=== PATIENT | male | born 1970 | race Caucasian/White ===

== ENCOUNTER 2017-01-10 16:17 | Inpatient (IN) | payer BC ==
[~2017-01-10] VITALS: Ht 172.7 cm; Wt 123.9 kg
[~2017-01-10 16:17] MED LIST: GLY/5 PO; METF-384 PO
[2017-01-10] MEDS ORDERED: SODIUM CHLORIDE 0.9% 1000ML 1,000 ML IV STA ×2 (16:42→17:04)
[2017-01-10] MEDS ORDERED: DAPTOmycin IV 500 MG in SODIUM CHLORIDE 0.9% 50ML 50 ML IV STA (16:45)
[2017-01-10] MEDS ORDERED: PIPERACILLIN/TAZOBACTAM 4.5 GM/100ML D5W IV STA (16:45)
--- NOTE | 2017-01-10 17:01 | EMERGENCY ROOM VISIT NOTE ---
History First contact with patient: 16:33 Chief Complaint: WOUND INFECTION Stated Complaint: INFECTED RIGHT FOOT Nursing Triage Summary: Pt presents with c/o right foot pain/infection. Pt states he is a diabetic and on Father's Day "something fell into my boot. I didn't take it off to look at it. I didn't really notice anything until the Wed after Father's Day." States area is open/draining. Denies fever/chills. Hx of cellulitis. History of Present Illness The patient is a 46 year old male who presents to the Emergency Room via private vehicle with complaints of "infected right foot". The patient states that he has diabetes, and has minimal feeling in his feet. He states on Father' s Day, a knife/pocket knife that was closed fell into his right boot and he walked on this for approximately 8 hours each day 3 days. He states that he noticed that he had injured his foot. He states that it was doing okay until last night the pain had increased, and he noticed redness and swelling of the right foot. There is been drainage from the foot. He rates the pain as a 2/ 10. He has a history of sialitis, and would like to get this treated appropriately. He was seen earlier today at [facility] who sent him here for further evaluation and management. He states that he is a type II diabetic, and is on metformin and glyburide. He checked his sugar on Wednesday, and it was found to be 411. He denies any fevers or chills. He states he has a history of MRSA. Review of Systems A complete 10-point Review of Systems was discussed with the patient, with pertinent positives and negatives listed in the History of Present Illness. All remaining Review of Systems questions can be considered negative unless otherwise specified. Past Medical/Surgical History Medical Problems: (1) Diabetic foot infection Diabetes, cellulitis, MRSA. Social History Smoking Status: Never Smoker Marital Status: single Occupation Status: employed Current/Historical Medications Scheduled Glyburide (Diabeta), 10 MG PO DAILY Ibuprofen (Advil), 600 MG PO DAILY Metformin Hcl (Glucophage), 1,000 MG PO BID Allergies Coded Allergies: No Known Allergies (Unverified , 01/10/17) Physical Exam Vital Signs Date Time Temp Pulse Resp B/P (MAP) Pulse Ox O2 Delivery O2 Flow Rate FiO2 01/10/17 16:45 Room Air 7/2/17 16:27 37.6 122 20 141/85 96 Room Air Physical Exam VITAL SIGNS - Vital signs and nursing notes were reviewed. Patient is borderline febrile at 37.6, hypertensive at 141/85, tachycardic at a rate of 122 bpm, and is saturating well on room air 96%. GENERAL -46-year-old male appearing his stated age who is in no acute distress. Communicates well with provider and answers questions appropriately. SKIN - there is diffuse erythema extending from the right distal toes to the mid calf. There is an ulcer on the plantar aspect of the right fourth MTP joint region. Minimal drainage noted. LUNGS - Chest wall symmetric without accessory muscle use, intercostals retractions, or central cyanosis. Normal vesicular breath sounds CTA B/L. No wheezes, rales, or rhonchi appreciated. CARDIAC - RRR with S1/S2. No murmur, rubs, or gallops appreciated. EXTREMITIES - No clubbing or peripheral cyanosis. No pretibial edema present. He is vascular intact in the right lower extremity, but does have marked sensory neuro deficit in the right foot. +5/5 strength noted in UE/LE bilaterally. Medical Decision & Procedures ER Provider Diagnostic Interpretation: RIGHT FOOT 3 VIEWS CLINICAL HISTORY: Right foot edema. Ulcer. Erythema. FINDINGS: 3 views of the right foot are obtained. No prior studies are available for comparison at the time of dictation. The skeletal structures are osteopenic. No fracture is identified. There is no bony erosion or periostitis. Pes planus is observed. There are large dorsal and plantar calcaneal enthesophytes. Degenerative spurring is seen on the dorsal aspect of the tarsal bones. A small enthesophyte is seen at the base of the fifth metatarsal. Soft tissue edema is present throughout the foot. Advanced atherosclerotic calcification is noted in the regional arteries. No subcutaneous gas or radiodense foreign body is seen. IMPRESSION: 1. Soft tissue edema with no acute bony abnormality seen in the right foot. 2. Osteopenia, degenerative change, and heel spurs as above. Electronically signed by: Iker Hinton M.D. 01/10/2017 5:32 PM Dictated Date/Time: 01/10/2017 5:30 PM Laboratory Results 01/10/17 16:45 Red Blood Count 5.30, Mean Corpuscular Volume 80.4, Mean Corpuscular Hemoglobin 28.3, Mean Corpuscular Hemoglobin Concent 35.2, Mean Platelet Volume 8.9, Neutrophils (%) (Auto) 81.5, Lymphocytes (%) (Auto) 10.7, Monocytes (%) (Auto) 6.6, Eosinophils (%) (Auto) 0.7, Basophils (%) (Auto) 0.2, Neutrophils # (Auto) 10.95, Lymphocytes # (Auto) 1.43, Monocytes # (Auto) 0.88, Eosinophils # (Auto) 0.09, Basophils # (Auto) 0.03 01/10/17 16:45 Test 01/10/17 16:45 01/10/17 16:56 White Blood Count 13.42 K/uL (4.8-10.8) Red Blood Count 5.30 M/uL (4.7-6.1) Hemoglobin 15.0 g/dL (14.0-18.0) Hematocrit 42.6 % (42-52) Mean Corpuscular Volume 80.4 fL (80-100) Mean Corpuscular Hemoglobin 28.3 pg (25-34) Mean Corpuscular Hemoglobin Concent 35.2 g/dl (32-36) Platelet Count 211 K/uL (130-400) Mean Platelet Volume 8.9 fL (7.4-10.4) Neutrophils (%) (Auto) 81.5 % Lymphocytes (%) (Auto) 10.7 % Monocytes (%) (Auto) 6.6 % Eosinophils (%) (Auto) 0.7 % Basophils (%) (Auto) 0.2 % Neutrophils # (Auto) 10.95 K/uL (1.4-6.5) Lymphocytes # (Auto) 1.43 K/uL (1.2-3.4) Monocytes # (Auto) 0.88 K/uL (0.11-0.59) Eosinophils # (Auto) 0.09 K/uL (0-0.5) Basophils # (Auto) 0.03 K/uL (0-0.2) RDW Standard Deviation 35.5 fL (36.4-46.3) RDW Coefficient of Variation 12.3 % (11.5-14.5) Immature Granulocyte % (Auto) 0.3 % Immature Granulocyte # (Auto) 0.04 K/uL (0.00-0.02) Prothrombin Time 10.7 SECONDS (9.0-12.0) Prothromb Time International Ratio 1.0 (0.9-1.1) Activated Partial Thromboplast Time 28.4 SECONDS (21.0-31.0) Partial Thromboplastin Ratio 1.1 Anion Gap 10.0 mmol/L (3-11) Est Creatinine Clear Calc Drug Dose 92.4 ml/min Estimated GFR () 75.8 Estimated GFR (Non- 65.4 BUN/Creatinine Ratio 13.5 (10-20) Calcium Level 8.7 mg/dl (8.5-10.1) Total Bilirubin 0.5 mg/dl (0.2-1) Aspartate Amino Transf (AST/SGOT) 8 U/L (15-37) Alanine Aminotransferase (ALT/SGPT) 23 U/L (12-78) Alkaline Phosphatase 89 U/L (45-117) Total Protein 7.1 gm/dl (6.4-8.2) Albumin 3.3 gm/dl (3.4-5.0) Globulin 3.8 gm/dl (2.5-4.0) Albumin/Globulin Ratio 0.9 (0.9-2) Beta-Hydroxybutyric Acid 3.74 mg/dL (0.2-2.81) Bedside Lactic Acid Venous 1.34 mmol/L (0.90-1.70) Medications Administered Medications (Trade) Dose Ordered Sig/Randa Route Start Time Stop Time Status Last Admin Dose Admin Sodium Chloride 1,000 ml @ 200 mls/hr Q5H STAT IV 01/10/17 16:42 01/10/17 20:43 DC 01/10/17 17:13 200 MLS/HR Piperacillin Sod/ Tazobactam Sod (Zosyn Iv) 4.5 gm NOW STAT IV 01/10/17 16:45 01/10/17 16:49 DC 01/10/17 17:11 4.5 GM Daptomycin 500 mg/ Sodium Chloride 60 ml @ 100 mls/hr NOW STAT IV 01/10/17 16:45 01/10/17 17:20 DC 01/10/17 17:11 100 MLS/HR Sodium Chloride 1,000 ml @ 999 mls/hr Q1H1M STAT IV 01/10/17 17:04 01/10/17 18:04 DC 01/10/17 17:04 999 MLS/HR Acetaminophen (Tylenol Tab) 1,000 mg STK-MED ONCE PO 01/10/17 18:24 01/10/17 18:25 DC 01/10/17 18:24 1,000 MG Medical Decision Patient was seen and evaluated as above. After obtaining a thorough history and physical examination IV access was initiated and the above workup was performed. Patient presents to us today slightly tachycardic at a rate of 122 bpm, and slightly febrile. He was bolused with fluids, and IV antibiotics were initiated despite there being a normal lactic acid. Patient's glucose was elevated. Creatinine is high at 1.3. Mild leukocytosis at 13.42. No anemia noted. Coagulation studies unremarkable. Sodium is low at 132, chloride low at 96. Glucose is 403. Point of care lactic is 1.34. I did consult the pharmacy regarding antibiotic choices for the patient and the decision was made to place the patient upon 4.5 g of Zosyn, as well as daptomycin. Again I consult pharmacy regarding this. Patient this time I believe is best managed in the inpatient setting secondary to the cellulitis of his foot, diabetic state , and tachycardia. I did discuss the case with my attending and subsequently the hospitalist. Please refer to further evaluation and management regarding the patient's stay. In evaluation treatment this patient following differential diagnoses were entertained: Sepsis, cellulitis, among others. Tetanus is up-to-date. Impression Primary Impression: Diabetic foot infection Departure Information Dispostion Admitted as an inpatient Condition FAIR Referrals Idris Moreno M.D. (PCP) Patient Instructions My [facility]
[2017-01-10 17:13] LABS: BASO % 0.2 %; BASO ABS # 0.03 K/uL (0-0.2); COMPLETE YES; EOS % 0.7 %; HEMATOCRIT 42.6 % (42-52); IG% 0.3 %; LYMPH % 10.7 %; LYMPH ABS # 1.43 K/uL (1.2-3.4); MEAN CELL VOLUME 80.4 fL (80-100); MEAN CORPUSCULAR HEMOGLOBIN 28.3 pg (25-34); MEAN CORPUSCULAR HGB CONC 35.2 g/dl (32-36); MEAN PLATELET VOLUME 8.9 fL (7.4-10.4); MONO % 6.6 %; NEUT % 81.5 %; PLATELET COUNT 211 K/uL (130-400); WHITE BLOOD COUNT 13.42 K/uL (4.8-10.8)
[2017-01-10 17:21] LABS: PARTIAL THROMBOPLASTIN RATIO 1.1; PROTHROMBIN TIME (PATIENT) 10.7 SECONDS (9.0-12.0)
--- NOTE | 2017-01-10 17:33 | DIAGNOSTIC IMAGING REPORT ---
RIGHT FOOT 3 VIEWS CLINICAL HISTORY: Right foot edema. Ulcer. Erythema. FINDINGS: 3 views of the right foot are obtained. No prior studies are available for comparison at the time of dictation. The skeletal structures are osteopenic. No fracture is identified. There is no bony erosion or periostitis. Pes planus is observed. There are large dorsal and plantar calcaneal enthesophytes. Degenerative spurring is seen on the dorsal aspect of the tarsal bones. A small enthesophyte is seen at the base of the fifth metatarsal. Soft tissue edema is present throughout the foot. Advanced atherosclerotic calcification is noted in the regional arteries. No subcutaneous gas or radiodense foreign body is seen. IMPRESSION: 1. Soft tissue edema with no acute bony abnormality seen in the right foot. 2. Osteopenia, degenerative change, and heel spurs as above. Electronically signed by: Iker Hinton M.D. 01/10/2017 5:32 PM Dictated Date/Time: 01/10/2017 5:30 PM
[2017-01-10] MEDS ORDERED: IBUP-1050 PO (17:37)
[2017-01-10 17:39] LABS: ALB/GLOB RATIO 0.9 (0.9-2); BUN/CREATININE RATIO 13.5 (10-20); CALCIUM 8.7 mg/dl (8.5-10.1); CREATININE 1.3 mg/dl (0.60-1.40); POTASSIUM 4.1 mmol/L (3.5-5.1)
[2017-01-10 18:00] LABS: BETA-HYDROXYBUTYRATE 3.74 mg/dL (0.2-2.81)
[2017-01-10] MEDS ORDERED: ACETAMINOPHEN 500 MG TAB PO ONE (18:24)
[2017-01-10] MEDS ORDERED: LANTUS PER UNIT CHARGE SC SCH (18:30)
[2017-01-10] MEDS ORDERED: ACETAMINOPHEN 500 MG TAB PO PRN (18:30)
[2017-01-10] MEDS ORDERED: ONDANSETRON INJ 2 MG/ML 2 ML VIAL IV PRN (18:30)
[2017-01-10] MEDS ORDERED: MAGNESIUM HYDROXIDE SUSP 30 ML UDC PO PRN (18:30)
[2017-01-10] MEDS ORDERED: ALUMINUM/MAGNESIUM/SIMETH (MAALOX MAX) 30 ML UDC PO PRN (18:30)
[2017-01-10] MEDS ORDERED: VANCOMYCIN CONSULT ACTIVE PRN (18:49)
[2017-01-10] MEDS ORDERED: GLUCOSE 40% GEL 15 GM TUBE PO PRN (19:00)
[2017-01-10] MEDS ORDERED: PIPERACILL/TAZOBAC CONSULT ACTIVE PRN (19:00)
[2017-01-10] MEDS ORDERED: GLUCAGON FOR INJ 1 MG VIAL SQ PRN (19:00)
[2017-01-10] MEDS ORDERED: GLUCOSE 10 TABS/TUBE PO PRN (19:00)
[2017-01-10] MEDS ORDERED: DEXTROSE 50% 50 ML SYR IV PRN (19:00)
[2017-01-10 19:07] VITALS: BMI 41.5
--- NOTE | 2017-01-10 19:28 | History and Physical ---
History & Physical Date & Time of Service: Jan 10, 2017 at 19:23 Chief Complaint: Infected Right Foot Primary Care Physician: Idris Moreno M.D. History of Present Illness This is a diabetic who presents with a diabetic foot infection on the right. He has an ulcer over the left fourth MTP area plantar aspect of his right foot which is caused by having a pocket knife in his boot and not being aware of it due to his neuropathy. He notices particularly reddened area to the right ankle and when inspecting his plantar aspect noticed an ulcer that is approximately 1 x 2 cm. 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 The patient's last A1c in our system is from 2012 and it was 8.9 In the ER. Blood cultures and was given daptomycin and Zosyn, Zosyn will be continued and we'll substitute vancomycin at this time Social History Smoking Status: Never Smoker Smokeless Tobacco Use: No Alcohol Use: none Marital Status: single Occupational Status: employed Immunizations History of Influenza Vaccine: N/A History of Tetanus Vaccine?: not since a child History of Pneumococcal: No History of Hepatitis B Vaccine: Yes Hepatitis Immunization Date: [birth year] 03, 1986 Multi-Drug Resistant Organisms History of MDRO: Yes Type of MDRO: MRSA Allergies Coded Allergies: No Known Allergies (Unverified , 01/10/17) Home Medications Scheduled Glyburide (Diabeta), 10 MG PO DAILY Ibuprofen (Advil), 600 MG PO DAILY Metformin Hcl (Glucophage), 1,000 MG PO BID Review of Systems ROS: well nourished well developed No double vision blurry vision No problems with speech or swallowing No palpitations, chest pain or pressure No Wheezing or breathing issues No abdominal pain nausea vomiting diarrhea changes in appetite or weight No burning urine urine frequency or changes in color No focal joint pain or muscle pain and numbness to both feet Ulcers present as commented on with redness to his ankle of the right foot No unusual bruising or bleeding No focused back pain or numbness or loss of strength No changes in memory or confusion Physical Exam Vital Signs Date Time Temp Pulse Resp B/P (MAP) Pulse Ox O2 Delivery O2 Flow Rate FiO2 01/10/17 19:07 Room Air 01/10/17 18:54 108 18 114/71 94 Room Air 01/10/17 16:45 Room Air 01/10/17 16:27 37.6 122 20 141/85 96 Room Air General Appearance: + mild distress, + obese Head: normocephalic, atraumatic Eyes: PERRL, EOMI ENT: hearing grossly normal, pharynx normal Neck: supple, no JVD Respiratory/Chest: chest non-tender, lungs clear, normal breath sounds Cardiovascular: regular rate, rhythm, no murmur Abdomen/GI: normal bowel sounds, non tender, soft Back: no CVA tenderness, no muscle spasm Extremities/Musculoskelatal: + pertinent finding (the patient has a macerated, 2 ulcer on the right plantar foot grade 3 with surrounding erythema to the foot to the ankle) Neurologic/Psych: alert, normal reflexes, + sensory deficit Diagnostics Laboratory Results Results Past 24 Hours Test 01/10/17 16:45 01/10/17 16:56 01/10/17 18:18 Range/Units White Blood Count 13.42 4.8-10.8 K/uL Red Blood Count 5.30 4.7-6.1 M/uL Hemoglobin 15.0 14.0-18.0 g/dL Hematocrit 42.6 42-52 % Mean Corpuscular Volume 80.4 80-100 fL Mean Corpuscular Hemoglobin 28.3 25-34 pg Mean Corpuscular Hemoglobin Concent 35.2 32-36 g/dl Platelet Count 211 130-400 K/uL Mean Platelet Volume 8.9 7.4-10.4 fL Neutrophils (%) (Auto) 81.5 % Lymphocytes (%) (Auto) 10.7 % Monocytes (%) (Auto) 6.6 % Eosinophils (%) (Auto) 0.7 % Basophils (%) (Auto) 0.2 % Neutrophils # (Auto) 10.95 1.4-6.5 K/uL Lymphocytes # (Auto) 1.43 1.2-3.4 K/uL Monocytes # (Auto) 0.88 0.11-0.59 K/uL Eosinophils # (Auto) 0.09 0-0.5 K/uL Basophils # (Auto) 0.03 0-0.2 K/uL RDW Standard Deviation 35.5 36.4-46.3 fL RDW Coefficient of Variation 12.3 11.5-14.5 % Immature Granulocyte % (Auto) 0.3 % Immature Granulocyte # (Auto) 0.04 0.00-0.02 K/uL Prothrombin Time 10.7 9.0-12.0 SECONDS Prothromb Time International Ratio 1.0 0.9-1.1 Activated Partial Thromboplast Time 28.4 21.0-31.0 SECONDS Partial Thromboplastin Ratio 1.1 Sodium Level 132 136-145 mmol/L Potassium Level 4.1 3.5-5.1 mmol/L Chloride Level 96 98-107 mmol/L Carbon Dioxide Level 26 21-32 mmol/L Anion Gap 10.0 3-11 mmol/L Blood Urea Nitrogen 18 7-18 mg/dl Creatinine 1.30 0.60-1.40 mg/dl Est Creatinine Clear Calc Drug Dose 92.4 ml/min Estimated GFR () 75.8 Estimated GFR (Non- 65.4 BUN/Creatinine Ratio 13.5 10-20 Random Glucose 403 70-99 mg/dl Calcium Level 8.7 8.5-10.1 mg/dl Total Bilirubin 0.5 0.2-1 mg/dl Aspartate Amino Transf (AST/SGOT) 8 15-37 U/L Alanine Aminotransferase (ALT/SGPT) 23 12-78 U/L Alkaline Phosphatase 89 45-117 U/L Total Protein 7.1 6.4-8.2 gm/dl Albumin 3.3 3.4-5.0 gm/dl Globulin 3.8 2.5-4.0 gm/dl Albumin/Globulin Ratio 0.9 0.9-2 Beta-Hydroxybutyric Acid 3.74 0.2-2.81 mg/dL Bedside Lactic Acid Venous 1.34 0.90-1.70 mmol/L Microbiology Results 01/10/17 Blood Culture, Received Pending 01/10/17 Blood Culture, Received Pending Diagnostic Radiology X-ray of the foot negative for osteomyelitis CXR normal Impression Assessment and Plan 46-year-old noncompliant diabetic patient with diabetic foot infection Vanco and Zosyn will be continued. Wound care Consult, follow blood cultures His diabetic care will continue his glipizide, check an A1c, perioperative educator, sliding scale insulin, initially held his metformin this could be restarted if his renal function remained stable Lovenox for DVT prevention We will also consider nutritional consult if the patient's agreeable Level of Care Med/Surg Advanced Directives Existing Living Will: No Existing Power of Gravure Press Set Up Operator: No Resuscitation Status FULL RESUSCITATION VTE Prophylaxis VTE Risk Assessment Done? Y/N: Yes Risk Level: Moderate Given or contraindicated: Enoxaparin (Lovenox)SQ
[2017-01-10 19:50] VITALS: BP 106/64; PULSE 112; TEMP 37.1; O2SAT 92
--- NOTE | 2017-01-10 20:13 | Pharmacy Progress Note ---
Pharmacy Abx Initial Consult Date of Service Jan 10, 2017. Pharmacy Dosing Scope Date of Consult: 01/10/17 Consultation requested by: Dr. Escobar Pharmacy is consulted to initiate vancomycin and piperacillin/tazobactam IV dosing therapy, order appropriate labs and adjust drug dose/frequency. Subjective The patient is a 46 year old male admitted on Jan 10, 2017 at 18:24. Objective Height (Feet): 5 Height (Inches): 8.00 Weight (Kilograms): 123.900 Vital Signs (Past 12Hrs) Vital Signs Past 12 Hours Date Time Temp Pulse Resp B/P (MAP) Pulse Ox O2 Delivery O2 Flow Rate FiO2 01/10/17 19:50 37.1 112 18 106/64 (78) 92 Room Air 01/10/17 19:07 Room Air 01/10/17 18:54 36.8 108 18 114/71 94 Room Air 01/10/17 16:45 Room Air 01/10/17 16:27 37.6 122 20 141/85 96 Room Air Lab Results (24Hrs) Laboratory Tests (24 Hours) Test 01/10/17 16:45 White Blood Count 13.42 K/uL (4.8-10.8) H Red Blood Count 5.30 M/uL (4.7-6.1) Hemoglobin 15.0 g/dL (14.0-18.0) Hematocrit 42.6 % (42-52) Mean Corpuscular Volume 80.4 fL (80-100) Mean Corpuscular Hemoglobin 28.3 pg (25-34) Mean Corpuscular Hemoglobin Concent 35.2 g/dl (32-36) Platelet Count 211 K/uL (130-400) Mean Platelet Volume 8.9 fL (7.4-10.4) Neutrophils (%) (Auto) 81.5 % Lymphocytes (%) (Auto) 10.7 % Monocytes (%) (Auto) 6.6 % Eosinophils (%) (Auto) 0.7 % Basophils (%) (Auto) 0.2 % Neutrophils # (Auto) 10.95 K/uL (1.4-6.5) H Lymphocytes # (Auto) 1.43 K/uL (1.2-3.4) Monocytes # (Auto) 0.88 K/uL (0.11-0.59) H Eosinophils # (Auto) 0.09 K/uL (0-0.5) Basophils # (Auto) 0.03 K/uL (0-0.2) Item Value Date Time Bedside Lactic Acid Venous 1.34 mmol/L 01/10/17 1656 Micro Results Date/Time Source Procedure Growth Status 01/10/17 17:00 Blood Blood Culture Pending Received 01/10/17 16:45 Blood Blood Culture Pending Received Risk Factors for Resistance * History of infection with a multidrug-resistant organism: * patient reports history of MRSA per ED progress note Assessment & Plan Assessment * 46 year old male who presents after dropping an object on his foot a few days ago. * Minimal feeling in feet secondary to diabetic neuropathy * Daptomycin and piperacillin/tazobactam given in ED * daptomycin will have activity for ~24 hours - will time vancomycin to start on 01/11/17 for this reason * Serum creatinine may be slightly elevated above baseline * patient body habitus likely will cause accumulation of vancomycin - will dose lower than population kinetic based dosing schematic. Plan * Broad-spectrum ABX for treatment of diabetic foot infection Vancomycin IV * Loading dose: 2500 mg (20 mg/kg) * Maintenance dose: 1750 mg IV (14 mg/kg) every 10 hours * Goal trough level for SSTI: 15 to 20 mcg/mL since remote history of MRSA * Trough level ordered for 01/12/17 prior to 11:00 dose (not yet at steady state, but would like to assess for accumulation) * A less than traditional dose and/or extended dosing interval has/have been selected due to likelihood of drug accumulation in obese patient/patient with h/ o CKD. Piperacillin/tazobactam * 4.5 g bolus administered over 30 minutes, then 4.5 g IV extended infusion every 8 hours for CrCl greater than 20 mL/min * Aggressive dosing selected due to BMI 35 or more. Pharmacy will continue to follow and will adjust dose/frequency as necessary. Thank you.
[2017-01-10] MEDS: PIPERACILL/TAZOBAC IV 4.5 GM in DEXTROSE 5% 100ML 100 ML IV SCH (21:46)
[2017-01-10] MEDS: INSULIN ASPART 100 UNITS/ML 3 ML PEN SC SCH (21:54)
[2017-01-10] MEDS: ENOXAPARIN 40 MG/0.4 ML SYR SQ SCH (22:21)
[2017-01-11 00:04] VITALS: BP 101/62; PULSE 93; TEMP 37.2; O2SAT 96
[2017-01-11] MEDS ORDERED: VANCOMYCIN INJ 2,500 MG in SODIUM CHLORIDE 0.9% 500ML 500 ML IV SCH (05:00)
[2017-01-11] MEDS: PIPERACILL/TAZOBAC IV 4.5 GM in DEXTROSE 5% 100ML 100 ML IV SCH ×3 (05:32→21:41)
[2017-01-11 07:16] LABS: BUN/CREATININE RATIO 15.7 (10-20); CALCIUM 8.4 mg/dl (8.5-10.1); CREATININE 0.98 mg/dl (0.60-1.40); POTASSIUM 3.9 mmol/L (3.5-5.1)
[2017-01-11 07:30] VITALS: O2SAT 95
[2017-01-11 07:31] VITALS: BP 155/76; PULSE 98; TEMP 37.2; O2SAT 95
[2017-01-11 07:55] LABS: ESTIMATED AVERAGE GLUCOSE 367 mg/dl; HA1C FLAG Normal (Normal)
[2017-01-11] MEDS: METFORMIN HCL 500 MG TAB PO SCH ×2 (08:18→18:52)
[2017-01-11 08:19] LABS: HEMATOCRIT 40.3 % (42-52); MEAN CELL VOLUME 82.1 fL (80-100); MEAN CORPUSCULAR HEMOGLOBIN 29.1 pg (25-34); MEAN CORPUSCULAR HGB CONC 35.5 g/dl (32-36); MEAN PLATELET VOLUME 9.6 fL (7.4-10.4); PLATELET COUNT 189 K/uL (130-400); RED BLOOD COUNT 4.91 M/uL (4.7-6.1); WHITE BLOOD COUNT 12.76 K/uL (4.8-10.8)
[2017-01-11] MEDS: INSULIN ASPART 100 UNITS/ML 3 ML PEN SC SCH ×4 (08:22→21:43)
--- NOTE | 2017-01-11 10:16 | Hospitalist Progress Note ---
Hospitalist Progress Note Date of Service Jan 11, 2017. Subjective Pt evaluation today including: conversation w/ patient, physical exam, chart review, lab review, review of studies, review of inpatient medication list Voiding: no voiding problems, no incontinence Patient states he is feeling well. He had a pocket knife in his boot causing breakdown of skin to right foot- blade was closed, denies being stabbed by knife. He is eating and drinking OK. 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 Medications Current Inpatient Medications Medications (Trade) Dose Ordered Sig/Randa Route Start Time Stop Time Status Last Admin Dose Admin Enoxaparin Sodium (Lovenox Inj) 40 mg Q24H SQ 01/10/17 22:00 02/09/17 21:59 01/10/17 22:21 40 MG Acetaminophen (Tylenol Tab) 1,000 mg Q6H PRN PO 01/10/17 18:30 02/09/17 18:29 Al Hydrox/Mg Hydrox/Simethicone (Maalox Max Susp) 15 ml Q4H PRN PO 01/10/17 18:30 02/09/17 18:29 Magnesium Hydroxide (Milk Of Magnesia Susp) 30 ml Q6H PRN PO 01/10/17 18:30 02/09/17 18:29 Ondansetron HCl (Zofran Inj) 4 mg Q6H PRN IV 01/10/17 18:30 02/09/17 18:29 Insulin Aspart (novoLOG ASPART) SLIDING SCALE PARAMETER ACHS SC 01/10/17 22:00 02/09/17 20:59 01/11/17 08:22 2 UNITS Piperacillin Sod/ Tazobactam Sod 4.5 gm/Dextrose 120 ml @ 30 mls/hr Q8H IV 01/10/17 22:00 01/20/17 18:29 01/11/17 05:32 30 MLS/HR Vancomycin HCl (Consult) 1 ea UD PRN N/A 01/10/17 18:49 02/09/17 18:48 Piperacillin Sod/ Tazobactam Sod (Consult) 1 ea UD PRN N/A 01/10/17 19:00 02/09/17 18:59 Glucose (Glucose 40% Gel) 15-30 GRAMS 15 GRAMS... UD PRN PO 01/10/17 19:00 02/09/17 18:59 Glucose (Glucose Chew Tab) 4-8 Tablets 4 Tabl... UD PRN PO 01/10/17 19:00 02/09/17 18:59 Dextrose (Dextrose 50% 50ML Syringe) 25-50ML OF 50% DW IV FOR... UD PRN IV 01/10/17 19:00 02/09/17 18:59 Glucagon (Glucagon Inj) 1 mg UD PRN SQ 01/10/17 19:00 02/09/17 18:59 Vancomycin HCl 1750 mg/Sodium Chloride 535 ml @ 200 mls/hr Q10H IV 01/11/17 15:00 01/20/17 16:59 Glyburide (MICRONase TAB) 10 mg QDB PO 01/11/17 08:00 02/10/17 07:59 01/11/17 08:18 10 MG Metformin HCl (Glucophage Tab) 1,000 mg BIDM PO 01/11/17 08:00 02/10/17 07:59 01/11/17 08:18 1,000 MG Objective Vital Signs Date Time Temp Pulse Resp B/P (MAP) Pulse Ox O2 Delivery O2 Flow Rate FiO2 01/11/17 07:31 37.2 98 18 155/76 (102) 95 01/11/17 07:30 95 Room Air 01/11/17 00:04 37.2 93 20 101/62 (75) 96 Room Air 01/11/17 00:00 Room Air 01/10/17 19:50 37.1 112 18 106/64 (78) 92 Room Air 01/10/17 19:07 Room Air 01/10/17 18:54 36.8 108 18 114/71 94 Room Air 01/10/17 16:45 Room Air 01/10/17 16:27 37.6 122 20 141/85 96 Room Air Physical Exam General Appearance: no apparent distress, + obese Eyes: normal inspection, PERRL ENT: hearing grossly normal Neck: supple Respiratory/Chest: lungs clear, no respiratory distress, no accessory muscle use Cardiovascular: regular rate, rhythm Abdomen: normal bowel sounds, non tender, soft Extremities: no pedal edema, no calf tenderness, + pertinent finding (2 ulcers on the right plantar foot w/ surrounding erythema- dressed in clean bandages ) Neurologic/Psychiatric: alert, normal mood/affect, oriented x 3, + sensory deficit (decreased sensation to touch of bilateral feet ) Skin: normal color, warm/dry, no rash Laboratory Results Last 24 Hours Test 01/10/17 16:45 01/10/17 16:56 01/10/17 20:18 01/10/17 21:52 White Blood Count 13.42 K/uL Red Blood Count 5.30 M/uL Hemoglobin 15.0 g/dL Hematocrit 42.6 % Mean Corpuscular Volume 80.4 fL Mean Corpuscular Hemoglobin 28.3 pg Mean Corpuscular Hemoglobin Concent 35.2 g/dl Platelet Count 211 K/uL Mean Platelet Volume 8.9 fL Neutrophils (%) (Auto) 81.5 % Lymphocytes (%) (Auto) 10.7 % Monocytes (%) (Auto) 6.6 % Eosinophils (%) (Auto) 0.7 % Basophils (%) (Auto) 0.2 % Neutrophils # (Auto) 10.95 K/uL Lymphocytes # (Auto) 1.43 K/uL Monocytes # (Auto) 0.88 K/uL Eosinophils # (Auto) 0.09 K/uL Basophils # (Auto) 0.03 K/uL RDW Standard Deviation 35.5 fL RDW Coefficient of Variation 12.3 % Immature Granulocyte % (Auto) 0.3 % Immature Granulocyte # (Auto) 0.04 K/uL Prothrombin Time 10.7 SECONDS Prothromb Time International Ratio 1.0 Activated Partial Thromboplast Time 28.4 SECONDS Partial Thromboplastin Ratio 1.1 Sodium Level 132 mmol/L Potassium Level 4.1 mmol/L Chloride Level 96 mmol/L Carbon Dioxide Level 26 mmol/L Anion Gap 10.0 mmol/L Blood Urea Nitrogen 18 mg/dl Creatinine 1.30 mg/dl Est Creatinine Clear Calc Drug Dose 92.4 ml/min Estimated GFR () 75.8 Estimated GFR (Non- 65.4 BUN/Creatinine Ratio 13.5 Random Glucose 403 mg/dl Estimated Average Glucose 367 mg/dl Hemoglobin A1c 14.4 % Calcium Level 8.7 mg/dl Total Bilirubin 0.5 mg/dl Aspartate Amino Transf (AST/SGOT) 8 U/L Alanine Aminotransferase (ALT/SGPT) 23 U/L Alkaline Phosphatase 89 U/L Total Protein 7.1 gm/dl Albumin 3.3 gm/dl Globulin 3.8 gm/dl Albumin/Globulin Ratio 0.9 Beta-Hydroxybutyric Acid 3.74 mg/dL Bedside Lactic Acid Venous 1.34 mmol/L Bedside Glucose 332 mg/dl 306 mg/dl Test 01/11/17 06:32 01/11/17 07:44 White Blood Count 12.76 K/uL Red Blood Count 4.91 M/uL Hemoglobin 14.3 g/dL Hematocrit 40.3 % Mean Corpuscular Volume 82.1 fL Mean Corpuscular Hemoglobin 29.1 pg Mean Corpuscular Hemoglobin Concent 35.5 g/dl RDW Standard Deviation 38.2 fL RDW Coefficient of Variation 12.7 % Platelet Count 189 K/uL Mean Platelet Volume 9.6 fL Sodium Level 136 mmol/L Potassium Level 3.9 mmol/L Chloride Level 102 mmol/L Carbon Dioxide Level 27 mmol/L Anion Gap 7.0 mmol/L Blood Urea Nitrogen 15 mg/dl Creatinine 0.98 mg/dl Est Creatinine Clear Calc Drug Dose 120.7 ml/min Estimated GFR () 106.7 Estimated GFR (Non- 92.1 BUN/Creatinine Ratio 15.7 Random Glucose 234 mg/dl Calcium Level 8.4 mg/dl Bedside Glucose 220 mg/dl Assessment and Plan 46-year-old male, with PMHx of T2DM- noncompliant, presented to ED w/ diabetic foot infection. Grade 3 diabetic foot ulcers, secondary to having a pocket knife in his shoe: - Admitted to med/surg - Right foot x-ray on 01/10: Soft tissue edema with no acute bony abnormality seen in the right foot. - IV Zosyn + Vancomycin - BCx and Wound culture pending - Infectious disease consulted, appreciate recommendations - Wound care consulted T2DM w/ neuropathy- UNCONTROLLED due to noncompliance of medications- hA1C 14.4% : - Continue Glyburide 10 mg daily and Metformin 1000 mg BID - Start Lantus 10 u HS BSG ACHS w/ sliding insulin scale - senior health educator consulted - Consult motorcycle racer GI Prophylaxis: Maalox PRN, IV Zofran PRN, Colace and/or Milk of Mag PRN DVT prophylaxis: Lovenox 40 mg SQ q24 hrs Code Status: LEVEL I, FULL Dispo: Discharge to home once medically stable
--- NOTE | 2017-01-11 10:31 | Medical Consult ---
Consultation Date of Consultation: Jan 11, 2017. Attending Physician: Morales Kang MD, PhD History of Present Illness pt admitted with diabetic foot ulcer/celluliits. some subjective fever at home starting on sat. has h/o poorly controlled diabetes, does not take his meds, does not check sugar regularly. A1C elevated, bs elevated to >400 on admission. low grade temp in ER, now afebrile. does admit to neuropathy in feet, denies trauma but per h&p pt with pocket knife in his shoe, unaware. x ray negative for osteo. 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 Saw urgent care on sat but no abx given, continued to worsen with swelling and erythema, came to Er. placed on dapto and zoysn in Er, change to vanco and zosyn upon admission , remains on this. tolerating well. no cp, sob, n/v/d/abd pain, no rash, all remaining ros reviewed and are negative. wbc elevated on admission, ,mildly better today. blood culture penidng. no wound culture ordered, no previous micro to review. Social History Smoking Status: Never Smoker Smokeless Tobacco Use: No Alcohol Use: none Marital Status: single Occupation Status: employed Allergies Coded Allergies: No Known Allergies (Unverified , 01/10/17) Current Inpatient Medications Current Inpatient Medications Medications (Trade) Dose Ordered Sig/Randa Route Start Time Stop Time Status Last Admin Dose Admin Enoxaparin Sodium (Lovenox Inj) 40 mg Q24H SQ 01/10/17 22:00 02/09/17 21:59 01/10/17 22:21 40 MG Acetaminophen (Tylenol Tab) 1,000 mg Q6H PRN PO 01/10/17 18:30 02/09/17 18:29 Al Hydrox/Mg Hydrox/Simethicone (Maalox Max Susp) 15 ml Q4H PRN PO 01/10/17 18:30 02/09/17 18:29 Magnesium Hydroxide (Milk Of Magnesia Susp) 30 ml Q6H PRN PO 01/10/17 18:30 02/09/17 18:29 Ondansetron HCl (Zofran Inj) 4 mg Q6H PRN IV 01/10/17 18:30 02/09/17 18:29 Insulin Aspart (novoLOG ASPART) SLIDING SCALE PARAMETER ACHS SC 01/10/17 22:00 02/09/17 20:59 01/11/17 08:22 2 UNITS Piperacillin Sod/ Tazobactam Sod 4.5 gm/Dextrose 120 ml @ 30 mls/hr Q8H IV 01/10/17 22:00 01/20/17 18:29 01/11/17 05:32 30 MLS/HR Vancomycin HCl (Consult) 1 ea UD PRN N/A 01/10/17 18:49 02/09/17 18:48 Piperacillin Sod/ Tazobactam Sod (Consult) 1 ea UD PRN N/A 01/10/17 19:00 02/09/17 18:59 Glucose (Glucose 40% Gel) 15-30 GRAMS 15 GRAMS... UD PRN PO 01/10/17 19:00 02/09/17 18:59 Glucose (Glucose Chew Tab) 4-8 Tablets 4 Tabl... UD PRN PO 01/10/17 19:00 02/09/17 18:59 Dextrose (Dextrose 50% 50ML Syringe) 25-50ML OF 50% DW IV FOR... UD PRN IV 01/10/17 19:00 02/09/17 18:59 Glucagon (Glucagon Inj) 1 mg UD PRN SQ 01/10/17 19:00 02/09/17 18:59 Vancomycin HCl 1750 mg/Sodium Chloride 535 ml @ 200 mls/hr Q10H IV 01/11/17 15:00 01/20/17 16:59 Glyburide (MICRONase TAB) 10 mg QDB PO 01/11/17 08:00 02/10/17 07:59 01/11/17 08:18 10 MG Metformin HCl (Glucophage Tab) 1,000 mg BIDM PO 01/11/17 08:00 02/10/17 07:59 01/11/17 08:18 1,000 MG Physical Exam Date Time Temp Pulse Resp B/P (MAP) Pulse Ox O2 Delivery O2 Flow Rate FiO2 01/11/17 07:31 37.2 98 18 155/76 (102) 95 01/11/17 07:30 95 Room Air 01/11/17 00:04 37.2 93 20 101/62 (75) 96 Room Air 01/11/17 00:00 Room Air 01/10/17 19:50 37.1 112 18 106/64 (78) 92 Room Air 01/10/17 19:07 Room Air 01/10/17 18:54 36.8 108 18 114/71 94 Room Air 01/10/17 16:45 Room Air 01/10/17 16:27 37.6 122 20 141/85 96 Room Air General Appearance: WD/WN, no apparent distress Head: normocephalic, atraumatic Eyes: normal inspection, EOMI Neck: supple Respiratory/Chest: lungs clear, normal breath sounds, no respiratory distress Cardiovascular: regular rate, rhythm, no edema Abdomen/GI: non tender, soft Extremities/Musculoskelatal: no calf tenderness, no pedal edema, + pertinent finding (foot with wound plantar surface, min drainage on dressing, no surrounidng erythema or warmth, unable to express drainage. dorsal foot with warmth, eryhema to mid foot. 2nd digit with wound at nail + edema, erythema. + neuropathy) Neurologic/Psych: alert, oriented x 3 Skin: normal color Laboratory Results Last 24 Hours Test 01/10/17 16:45 01/10/17 16:56 01/10/17 20:18 01/10/17 21:52 White Blood Count 13.42 K/uL Red Blood Count 5.30 M/uL Hemoglobin 15.0 g/dL Hematocrit 42.6 % Mean Corpuscular Volume 80.4 fL Mean Corpuscular Hemoglobin 28.3 pg Mean Corpuscular Hemoglobin Concent 35.2 g/dl Platelet Count 211 K/uL Mean Platelet Volume 8.9 fL Neutrophils (%) (Auto) 81.5 % Lymphocytes (%) (Auto) 10.7 % Monocytes (%) (Auto) 6.6 % Eosinophils (%) (Auto) 0.7 % Basophils (%) (Auto) 0.2 % Neutrophils # (Auto) 10.95 K/uL Lymphocytes # (Auto) 1.43 K/uL Monocytes # (Auto) 0.88 K/uL Eosinophils # (Auto) 0.09 K/uL Basophils # (Auto) 0.03 K/uL RDW Standard Deviation 35.5 fL RDW Coefficient of Variation 12.3 % Immature Granulocyte % (Auto) 0.3 % Immature Granulocyte # (Auto) 0.04 K/uL Prothrombin Time 10.7 SECONDS Prothromb Time International Ratio 1.0 Activated Partial Thromboplast Time 28.4 SECONDS Partial Thromboplastin Ratio 1.1 Sodium Level 132 mmol/L Potassium Level 4.1 mmol/L Chloride Level 96 mmol/L Carbon Dioxide Level 26 mmol/L Anion Gap 10.0 mmol/L Blood Urea Nitrogen 18 mg/dl Creatinine 1.30 mg/dl Est Creatinine Clear Calc Drug Dose 92.4 ml/min Estimated GFR () 75.8 Estimated GFR (Non- 65.4 BUN/Creatinine Ratio 13.5 Random Glucose 403 mg/dl Estimated Average Glucose 367 mg/dl Hemoglobin A1c 14.4 % Calcium Level 8.7 mg/dl Total Bilirubin 0.5 mg/dl Aspartate Amino Transf (AST/SGOT) 8 U/L Alanine Aminotransferase (ALT/SGPT) 23 U/L Alkaline Phosphatase 89 U/L Total Protein 7.1 gm/dl Albumin 3.3 gm/dl Globulin 3.8 gm/dl Albumin/Globulin Ratio 0.9 Beta-Hydroxybutyric Acid 3.74 mg/dL Bedside Lactic Acid Venous 1.34 mmol/L Bedside Glucose 332 mg/dl 306 mg/dl Test 01/11/17 06:32 01/11/17 07:44 White Blood Count 12.76 K/uL Red Blood Count 4.91 M/uL Hemoglobin 14.3 g/dL Hematocrit 40.3 % Mean Corpuscular Volume 82.1 fL Mean Corpuscular Hemoglobin 29.1 pg Mean Corpuscular Hemoglobin Concent 35.5 g/dl RDW Standard Deviation 38.2 fL RDW Coefficient of Variation 12.7 % Platelet Count 189 K/uL Mean Platelet Volume 9.6 fL Sodium Level 136 mmol/L Potassium Level 3.9 mmol/L Chloride Level 102 mmol/L Carbon Dioxide Level 27 mmol/L Anion Gap 7.0 mmol/L Blood Urea Nitrogen 15 mg/dl Creatinine 0.98 mg/dl Est Creatinine Clear Calc Drug Dose 120.7 ml/min Estimated GFR () 106.7 Estimated GFR (Non- 92.1 BUN/Creatinine Ratio 15.7 Random Glucose 234 mg/dl Calcium Level 8.4 mg/dl Bedside Glucose 220 mg/dl Assessment & Plan (1) Diabetic foot infection Assessment & Plan: continue abx for now. needs wound culture. diabetes control. follow cultures.
--- NOTE | 2017-01-11 10:43 | Medical Consult ---
Consultation Date of Consultation: Jan 11, 2017. Attending Physician: Morales Kang MD, PhD Reason for Consultation: Diabetic foot infection Past Medical/Surgical History Medical Problems: (1) Diabetic foot infection Social History Smoking Status: Never Smoker Smokeless Tobacco Use: No Alcohol Use: none Marital Status: single Occupation Status: employed Allergies Coded Allergies: No Known Allergies (Unverified , 01/10/17) Current Inpatient Medications Current Inpatient Medications Medications (Trade) Dose Ordered Sig/Randa Route Start Time Stop Time Status Last Admin Dose Admin Enoxaparin Sodium (Lovenox Inj) 40 mg Q24H SQ 01/10/17 22:00 02/09/17 21:59 01/10/17 22:21 40 MG Acetaminophen (Tylenol Tab) 1,000 mg Q6H PRN PO 01/10/17 18:30 02/09/17 18:29 Al Hydrox/Mg Hydrox/Simethicone (Maalox Max Susp) 15 ml Q4H PRN PO 01/10/17 18:30 02/09/17 18:29 Magnesium Hydroxide (Milk Of Magnesia Susp) 30 ml Q6H PRN PO 01/10/17 18:30 02/09/17 18:29 Ondansetron HCl (Zofran Inj) 4 mg Q6H PRN IV 01/10/17 18:30 02/09/17 18:29 Insulin Aspart (novoLOG ASPART) SLIDING SCALE PARAMETER ACHS SC 01/10/17 22:00 02/09/17 20:59 01/11/17 08:22 2 UNITS Piperacillin Sod/ Tazobactam Sod 4.5 gm/Dextrose 120 ml @ 30 mls/hr Q8H IV 01/10/17 22:00 01/20/17 18:29 01/11/17 05:32 30 MLS/HR Vancomycin HCl (Consult) 1 ea UD PRN N/A 01/10/17 18:49 02/09/17 18:48 Piperacillin Sod/ Tazobactam Sod (Consult) 1 ea UD PRN N/A 01/10/17 19:00 02/09/17 18:59 Glucose (Glucose 40% Gel) 15-30 GRAMS 15 GRAMS... UD PRN PO 01/10/17 19:00 02/09/17 18:59 Glucose (Glucose Chew Tab) 4-8 Tablets 4 Tabl... UD PRN PO 01/10/17 19:00 02/09/17 18:59 Dextrose (Dextrose 50% 50ML Syringe) 25-50ML OF 50% DW IV FOR... UD PRN IV 01/10/17 19:00 02/09/17 18:59 Glucagon (Glucagon Inj) 1 mg UD PRN SQ 01/10/17 19:00 02/09/17 18:59 Vancomycin HCl 1750 mg/Sodium Chloride 535 ml @ 200 mls/hr Q10H IV 01/11/17 15:00 01/20/17 16:59 Glyburide (MICRONase TAB) 10 mg QDB PO 01/11/17 08:00 02/10/17 07:59 01/11/17 08:18 10 MG Metformin HCl (Glucophage Tab) 1,000 mg BIDM PO 01/11/17 08:00 02/10/17 07:59 01/11/17 08:18 1,000 MG Physical Exam Date Time Temp Pulse Resp B/P (MAP) Pulse Ox O2 Delivery O2 Flow Rate FiO2 01/11/17 07:31 37.2 98 18 155/76 (102) 95 01/11/17 07:30 95 Room Air 01/11/17 00:04 37.2 93 20 101/62 (75) 96 Room Air 01/11/17 00:00 Room Air 01/10/17 19:50 37.1 112 18 106/64 (78) 92 Room Air 01/10/17 19:07 Room Air 01/10/17 18:54 36.8 108 18 114/71 94 Room Air 01/10/17 16:45 Room Air 01/10/17 16:27 37.6 122 20 141/85 96 Room Air General Appearance: WD/WN, no apparent distress Head: normocephalic, atraumatic Eyes: normal inspection, EOMI, sclerae normal ENT: normal ENT inspection, hearing grossly normal, pharynx normal Neck: supple, no adenopathy, thyroid normal, trachea midline Respiratory/Chest: chest non-tender, lungs clear, normal breath sounds, no respiratory distress Cardiovascular: regular rate, rhythm, no gallop, no murmur Abdomen/GI: normal bowel sounds, non tender, soft, no organomegaly Back: normal inspection, no CVA tenderness Extremities/Musculoskelatal: no calf tenderness, normal capillary refill Neurologic/Psych: alert, oriented x 3, + sensory deficit (both feet) Skin: normal color, + pertinent finding (2 plantar ulcers right foot with right foot cellulitis) Laboratory Results Date/Time Source Procedure Growth Status 01/10/17 17:00 Blood Blood Culture Pending Received 01/10/17 16:45 Blood Blood Culture Pending Received Last 24 Hours Test 01/10/17 16:45 01/10/17 16:56 01/10/17 20:18 01/10/17 21:52 White Blood Count 13.42 K/uL Red Blood Count 5.30 M/uL Hemoglobin 15.0 g/dL Hematocrit 42.6 % Mean Corpuscular Volume 80.4 fL Mean Corpuscular Hemoglobin 28.3 pg Mean Corpuscular Hemoglobin Concent 35.2 g/dl Platelet Count 211 K/uL Mean Platelet Volume 8.9 fL Neutrophils (%) (Auto) 81.5 % Lymphocytes (%) (Auto) 10.7 % Monocytes (%) (Auto) 6.6 % Eosinophils (%) (Auto) 0.7 % Basophils (%) (Auto) 0.2 % Neutrophils # (Auto) 10.95 K/uL Lymphocytes # (Auto) 1.43 K/uL Monocytes # (Auto) 0.88 K/uL Eosinophils # (Auto) 0.09 K/uL Basophils # (Auto) 0.03 K/uL RDW Standard Deviation 35.5 fL RDW Coefficient of Variation 12.3 % Immature Granulocyte % (Auto) 0.3 % Immature Granulocyte # (Auto) 0.04 K/uL Prothrombin Time 10.7 SECONDS Prothromb Time International Ratio 1.0 Activated Partial Thromboplast Time 28.4 SECONDS Partial Thromboplastin Ratio 1.1 Sodium Level 132 mmol/L Potassium Level 4.1 mmol/L Chloride Level 96 mmol/L Carbon Dioxide Level 26 mmol/L Anion Gap 10.0 mmol/L Blood Urea Nitrogen 18 mg/dl Creatinine 1.30 mg/dl Est Creatinine Clear Calc Drug Dose 92.4 ml/min Estimated GFR () 75.8 Estimated GFR (Non- 65.4 BUN/Creatinine Ratio 13.5 Random Glucose 403 mg/dl Estimated Average Glucose 367 mg/dl Hemoglobin A1c 14.4 % Calcium Level 8.7 mg/dl Total Bilirubin 0.5 mg/dl Aspartate Amino Transf (AST/SGOT) 8 U/L Alanine Aminotransferase (ALT/SGPT) 23 U/L Alkaline Phosphatase 89 U/L Total Protein 7.1 gm/dl Albumin 3.3 gm/dl Globulin 3.8 gm/dl Albumin/Globulin Ratio 0.9 Beta-Hydroxybutyric Acid 3.74 mg/dL Bedside Lactic Acid Venous 1.34 mmol/L Bedside Glucose 332 mg/dl 306 mg/dl Test 01/11/17 06:32 01/11/17 07:44 White Blood Count 12.76 K/uL Red Blood Count 4.91 M/uL Hemoglobin 14.3 g/dL Hematocrit 40.3 % Mean Corpuscular Volume 82.1 fL Mean Corpuscular Hemoglobin 29.1 pg Mean Corpuscular Hemoglobin Concent 35.5 g/dl RDW Standard Deviation 38.2 fL RDW Coefficient of Variation 12.7 % Platelet Count 189 K/uL Mean Platelet Volume 9.6 fL Sodium Level 136 mmol/L Potassium Level 3.9 mmol/L Chloride Level 102 mmol/L Carbon Dioxide Level 27 mmol/L Anion Gap 7.0 mmol/L Blood Urea Nitrogen 15 mg/dl Creatinine 0.98 mg/dl Est Creatinine Clear Calc Drug Dose 120.7 ml/min Estimated GFR () 106.7 Estimated GFR (Non- 92.1 BUN/Creatinine Ratio 15.7 Random Glucose 234 mg/dl Calcium Level 8.4 mg/dl Bedside Glucose 220 mg/dl RIGHT FOOT 3 VIEWS CLINICAL HISTORY: Right foot edema. Ulcer. Erythema. FINDINGS: 3 views of the right foot are obtained. No prior studies are available for comparison at the time of dictation. The skeletal structures are osteopenic. No fracture is identified. There is no bony erosion or periostitis. Pes planus is observed. There are large dorsal and plantar calcaneal enthesophytes. Degenerative spurring is seen on the dorsal aspect of the tarsal bones. A small enthesophyte is seen at the base of the fifth metatarsal. Soft tissue edema is present throughout the foot. Advanced atherosclerotic calcification is noted in the regional arteries. No subcutaneous gas or radiodense foreign body is seen. IMPRESSION: 1. Soft tissue edema with no acute bony abnormality seen in the right foot. 2. Osteopenia, degenerative change, and heel spurs as above. Electronically signed by: Iker Hinton M.D. 01/10/2017 5:32 PM Dictated Date/Time: 01/10/2017 5:30 PM Assessment & Plan 46 yo diabetic male, poorly controlled with neuropathy now with cellulitis right foot from infected plantar ulcerations. Vancomycin and zosyn appropriate pending further culture results. Will follow.
[2017-01-11 12:52] VITALS: BMI 41.5
[2017-01-11] MEDS: VANCOMYCIN INJ 1,750 MG in SODIUM CHLORIDE 0.9% 500ML 500 ML IV SCH (14:52)
[2017-01-11 15:48] VITALS: BP 149/77; PULSE 110; TEMP 37.3; O2SAT 96
[2017-01-11] MEDS: ENOXAPARIN 40 MG/0.4 ML SYR SQ SCH (21:45)
[2017-01-11] MEDS ORDERED: INSULIN GLARGINE SOLOSTAR 100 UNITS/ML 3 ML PEN SC SCH (22:00)
[2017-01-12] VITALS: BP 138/76; PULSE 110; TEMP 37.4; O2SAT 96
[2017-01-12] MEDS: VANCOMYCIN INJ 1,750 MG in SODIUM CHLORIDE 0.9% 500ML 500 ML IV SCH ×3 (01:16→20:42)
[2017-01-12] MEDS: PIPERACILL/TAZOBAC IV 4.5 GM in DEXTROSE 5% 100ML 100 ML IV SCH (06:09)
[2017-01-12 07:24] VITALS: BP 137/84; PULSE 96; TEMP 36.4; O2SAT 95
[2017-01-12 08:00] VITALS: O2SAT 95
[2017-01-12] MEDS: METFORMIN HCL 500 MG TAB PO SCH ×2 (08:07→17:45)
[2017-01-12] MEDS: INSULIN ASPART 100 UNITS/ML 3 ML PEN SC SCH ×4 (08:07→20:47)
[2017-01-12 08:25] LABS: BUN/CREATININE RATIO 12.8 (10-20); CALCIUM 8.5 mg/dl (8.5-10.1); CREATININE 0.83 mg/dl (0.60-1.40); MAGNESIUM 1.5 mg/dl (1.8-2.4); POTASSIUM 3.4 mmol/L (3.5-5.1)
--- NOTE | 2017-01-12 08:44 | Hospitalist Progress Note ---
Hospitalist Progress Note Date of Service Jan 12, 2017. Subjective Pt evaluation today including: conversation w/ patient, physical exam, chart review, lab review, review of studies, review of inpatient medication list Voiding: no voiding problems, no incontinence Patient states he is feeling well this AM. Spoke w/ nutrition and life educator yesterday- denies any further questions /concerns. Started on Lantus- patient is agreeable to take injections at discharge; self injection teaching completed He is eating and drinking OK. Patient denies any fever, chills, sweats, lightheadedness, dizziness, vision changes, CP, palpitations, edema, SOB, wheezing, cough, abdominal pain, nausea, vomiting, diarrhea, urinary symptoms, melena, numbness/tingling, weakness, muscle/joint pain, anxiety/depression, active bleeding, or new skin discoloration/changes. Medications Current Inpatient Medications Medications (Trade) Dose Ordered Sig/Randa Route Start Time Stop Time Status Last Admin Dose Admin Enoxaparin Sodium (Lovenox Inj) 40 mg Q24H SQ 01/10/17 22:00 02/09/17 21:59 01/11/17 21:45 40 MG Acetaminophen (Tylenol Tab) 1,000 mg Q6H PRN PO 01/10/17 18:30 02/09/17 18:29 Al Hydrox/Mg Hydrox/Simethicone (Maalox Max Susp) 15 ml Q4H PRN PO 01/10/17 18:30 02/09/17 18:29 Magnesium Hydroxide (Milk Of Magnesia Susp) 30 ml Q6H PRN PO 01/10/17 18:30 02/09/17 18:29 Ondansetron HCl (Zofran Inj) 4 mg Q6H PRN IV 01/10/17 18:30 02/09/17 18:29 Insulin Aspart (novoLOG ASPART) SLIDING SCALE PARAMETER ACHS SC 01/10/17 22:00 02/09/17 20:59 01/11/17 21:43 2 UNITS Piperacillin Sod/ Tazobactam Sod 4.5 gm/Dextrose 120 ml @ 30 mls/hr Q8H IV 01/10/17 22:00 01/20/17 18:29 01/12/17 06:09 30 MLS/HR Vancomycin HCl (Consult) 1 ea UD PRN N/A 01/10/17 18:49 8/1/17 18:48 Piperacillin Sod/ Tazobactam Sod (Consult) 1 ea UD PRN N/A 01/10/17 19:00 02/09/17 18:59 Glucose (Glucose 40% Gel) 15-30 GRAMS 15 GRAMS... UD PRN PO 01/10/17 19:00 02/09/17 18:59 Glucose (Glucose Chew Tab) 4-8 Tablets 4 Tabl... UD PRN PO 01/10/17 19:00 02/09/17 18:59 Dextrose (Dextrose 50% 50ML Syringe) 25-50ML OF 50% DW IV FOR... UD PRN IV 01/10/17 19:00 02/09/17 18:59 Glucagon (Glucagon Inj) 1 mg UD PRN SQ 01/10/17 19:00 02/09/17 18:59 Vancomycin HCl 1750 mg/Sodium Chloride 535 ml @ 200 mls/hr Q10H IV 01/11/17 15:00 01/20/17 16:59 01/12/17 01:16 200 MLS/HR Glyburide (MICRONase TAB) 10 mg QDB PO 01/11/17 08:00 02/10/17 07:59 01/12/17 08:07 10 MG Metformin HCl (Glucophage Tab) 1,000 mg BIDM PO 01/11/17 08:00 02/10/17 07:59 01/12/17 08:07 1,000 MG Insulin Glargine (Lantus Solostar Pen) 10 units HS SC 01/11/17 22:00 02/10/17 21:59 01/11/17 21:42 10 UNITS Objective Vital Signs Date Time Temp Pulse Resp B/P (MAP) Pulse Ox O2 Delivery O2 Flow Rate FiO2 01/12/17 07:24 36.4 96 18 137/84 (101) 95 Room Air 01/12/17 01:30 Room Air 01/12/17 00:00 37.4 110 20 138/76 (96) 96 Room Air 01/11/17 17:36 Room Air 01/11/17 15:48 37.3 110 18 149/77 (101) 96 Room Air Physical Exam General Appearance: no apparent distress, + obese Eyes: normal inspection, PERRL ENT: hearing grossly normal Neck: supple Respiratory/Chest: lungs clear, no respiratory distress, no accessory muscle use Cardiovascular: regular rate, rhythm Abdomen: normal bowel sounds, non tender, soft Extremities: no pedal edema, no calf tenderness, + pertinent finding (Right foot ulcer dressing in clean banadage; no erythema noted beyond outlined region of dorsal foot ) Neurologic/Psychiatric: alert, normal mood/affect, oriented x 3 Skin: normal color, warm/dry, no rash Laboratory Results Last 24 Hours Test 01/11/17 11:41 01/11/17 16:48 01/11/17 20:50 01/12/17 07:31 Bedside Glucose 258 mg/dl 216 mg/dl 203 mg/dl Sodium Level 138 mmol/L Potassium Level 3.4 mmol/L Chloride Level 105 mmol/L Carbon Dioxide Level 25 mmol/L Anion Gap 8.0 mmol/L Blood Urea Nitrogen 11 mg/dl Creatinine 0.83 mg/dl Est Creatinine Clear Calc Drug Dose 142.5 ml/min Estimated GFR () 122.3 Estimated GFR (Non- 105.5 BUN/Creatinine Ratio 12.8 Random Glucose 171 mg/dl Calcium Level 8.5 mg/dl Magnesium Level 1.5 mg/dl Test 01/12/17 07:35 Bedside Glucose 163 mg/dl Assessment and Plan 46-year-old male, with PMHx of T2DM- noncompliant, presented to ED w/ diabetic foot infection. Grade 3 diabetic foot ulcers, secondary to having a pocket knife in his shoe: - Admitted to med/surg - Right foot x-ray on 01/10: Soft tissue edema with no acute bony abnormality seen in the right foot. - IV Zosyn + Vancomycin -- d/c Zosyn on 01/12 due to wound culture growing staph- continue Vanco pending sensitives and ID input - BCx- NGTD - Wound culture- staph aureus; sensitives pending - Infectious disease consulted, appreciate recommendations - Wound care consulted -- Will need outpatient f/u T2DM w/ neuropathy- UNCONTROLLED due to noncompliance of medications- hA1C 14.4% : - Continue Glyburide 10 mg daily and Metformin 1000 mg BID -- life educator recommends changing to Metformin XR 2000 mg daily at discharge - Lantus 10 u HS- increased to 14 u HS and BSG ACHS w/ sliding insulin scale - life educator consulted - Consult flat bed operator Hypomagnesium of 1.5 on 01/12: - Replaced w/ IV 1 gm mag x1 - Follow mag level, replace PRN Hypokalemia of 3.4 on 01/12: - Replaced w/ KCL PO 20 mEq x1 - Follow PRP, replace PRN GI Prophylaxis: Maalox PRN, IV Zofran PRN, Colace and/or Milk of Mag PRN DVT prophylaxis: Lovenox 40 mg SQ q24 hrs Code Status: LEVEL I, FULL Dispo: Discharge to home once medically stable
[2017-01-12] MEDS ORDERED: MAGNESIUM SULFATE 1GM / D5W 1 GM in PREMIXED IN D5W 100 ML IV ONE (09:00)
[2017-01-12] MEDS ORDERED: POTASSIUM CHLORIDE 20 MEQ TABCR PO ONE (09:00)
[2017-01-12] MEDS ORDERED: VANCOMYCIN TROUGH SCH (10:30)
--- NOTE | 2017-01-12 11:21 | Pharmacy Progress Note ---
Pharmacy Abx Dose Progress Nt Date of Service Jan 12, 2017. Pharmacy Dosing Scope The patient is currently receiving the following antimicrobial agents per Pharmacy consult: * Vancomycin 1750 mg q10h * Zosyn d/c'd today Objective Height (Feet): 5 Height (Inches): 8.00 Weight (Kilograms): 123.900 (BMI = 40) Vital Signs (Past 12Hrs) Vital Signs Past 12 Hours Date Time Temp Pulse Resp B/P (MAP) Pulse Ox O2 Delivery O2 Flow Rate FiO2 01/12/17 08:00 95 Room Air 01/12/17 07:24 36.4 96 18 137/84 (101) 95 Room Air 01/12/17 01:30 Room Air 01/12/17 00:00 37.4 110 20 138/76 (96) 96 Room Air Micro Results Date/Time Source Procedure Growth Status 01/10/17 17:00 Blood Blood Culture - Preliminary NO GROWTH TO DATE. Resulted 01/10/17 16:45 Blood Blood Culture - Preliminary NO GROWTH TO DATE. Resulted 01/11/17 11:00 Drainage-Deep Foot Right Gram Stain - Final Resulted 01/11/17 11:00 Wound Culture - Preliminary Staphylococcus Aureus Resulted Risk Factors for Resistance * History of infection with a multidrug-resistant organism: * patient reports history of MRSA per ED progress note Assessment & Plan Assessment 46 year old male receiving vancomycin for treatment of diabetic foot infection Day # 3 of antimicrobial therapy Plan Vancomycin IV * Trough level of 13.6 mcg/mL is near therapeutic (aware not yet at steady state ) * Goal 15-20 for cellulitis w/ history of MRSA and S. aureus in current wound culture * Continue dose of 1750 mg IV every 10 hours * Repeat trough level ordered for: 01/14/17 prior to the dose due at 1300 * Less than traditional dose continued due to likelihood of drug accumulation in obese patient Pharmacy will continue to follow and will adjust dose/frequency as necessary. Thank you.
[2017-01-12 15:14] VITALS: BP 149/90; PULSE 100; TEMP 36.8; O2SAT 97
[2017-01-12 16:12] VITALS: O2SAT 97
[2017-01-12] MEDS: ENOXAPARIN 40 MG/0.4 ML SYR SQ SCH (20:43)
[2017-01-12] MEDS ORDERED: INSULIN GLARGINE SOLOSTAR 100 UNITS/ML 3 ML PEN SC SCH (22:00)
[2017-01-13 00:26] VITALS: BP 139/84; PULSE 107; TEMP 36.9; O2SAT 94
[2017-01-13] MEDS: VANCOMYCIN INJ 1,750 MG in SODIUM CHLORIDE 0.9% 500ML 500 ML IV SCH (06:40)
[2017-01-13 07:27] LABS: HEMATOCRIT 36.6 % (42-52); MEAN CORPUSCULAR HEMOGLOBIN 28.8 pg (25-34); MEAN CORPUSCULAR HGB CONC 35.5 g/dl (32-36); MEAN PLATELET VOLUME 8.8 fL (7.4-10.4); PLATELET COUNT 201 K/uL (130-400); RED BLOOD COUNT 4.52 M/uL (4.7-6.1); WHITE BLOOD COUNT 9.37 K/uL (4.8-10.8)
[2017-01-13 07:44] LABS: BUN/CREATININE RATIO 11.6 (10-20); CALCIUM 8.5 mg/dl (8.5-10.1); MAGNESIUM 1.6 mg/dl (1.8-2.4); POTASSIUM 3.6 mmol/L (3.5-5.1)
[2017-01-13 07:54] VITALS: BP 154/89; PULSE 18; PULSE 99; TEMP 36.7; O2SAT 95
[2017-01-13 08:00] VITALS: O2SAT 95
[2017-01-13] MEDS: INSULIN ASPART 100 UNITS/ML 3 ML PEN SC SCH ×2 (08:16→11:51)
[2017-01-13] MEDS: METFORMIN HCL 500 MG TAB PO SCH (08:16)
[2017-01-13] MEDS ORDERED: INSDGIPEN SC (08:50)
[2017-01-13] MEDS ORDERED: METF-382 PO (08:50)
[2017-01-13] MEDS: MAGNESIUM SULFATE 1GM / D5W 1 GM in PREMIXED IN D5W 100 ML IV SCH ×2 (08:54→09:56)
--- NOTE | 2017-01-13 09:13 | Discharge Summary ---
Discharge Summary Date of Service Jan 13, 2017. Discharge Summary Admission Date: Jan 10, 2017 at 18:24 Discharge Date: Jan 13, 2017 Discharge Disposition: Home with services Principal Diagnosis: Uncontrolled diabetes Problems/Secondary Diagnoses: Grade 3 diabetic foot ulcers T2DM w/ neuropathy Hypomagnesium Hypokalemia Immunizations: Have You Had Influenza Vaccine: N/A History of Tetanus Vaccine?: not since a child History of Pneumococcal: No History of Hepatitis B Vaccine: Yes Hepatitis Immunization Date: Feb 03, 1986 Procedures: RIGHT FOOT 3 VIEWS CLINICAL HISTORY: Right foot edema. Ulcer. Erythema. FINDINGS: 3 views of the right foot are obtained. No prior studies are available for comparison at the time of dictation. The skeletal structures are osteopenic. No fracture is identified. There is no bony erosion or periostitis. Pes planus is observed. There are large dorsal and plantar calcaneal enthesophytes. Degenerative spurring is seen on the dorsal aspect of the tarsal bones. A small enthesophyte is seen at the base of the fifth metatarsal. Soft tissue edema is present throughout the foot. Advanced atherosclerotic calcification is noted in the regional arteries. No subcutaneous gas or radiodense foreign body is seen. IMPRESSION: 1. Soft tissue edema with no acute bony abnormality seen in the right foot. 2. Osteopenia, degenerative change, and heel spurs as above. Electronically signed by: Iker Hinton M.D. 01/10/2017 5:32 PM Dictated Date/Time: 01/10/2017 5:30 PM The status of this report is Signed. Draft = Not yet reviewed or approved by Radiologist. Signed = Reviewed and approved by Radiologist. Consultations: Wound care Infectious disease Medication Reconciliation New Medications: Cephalexin Monohydrate (Keflex) 500 Mg Cap 500 MG PO TID for 21 Days, #63 CAP Metformin Ext Rel (Glucophage Ext Rel) 500 Mg Tab 2000 MG PO DAILY for 30 Days, #120 TAB Insulin Glargine (Lantus Solostar) 100 Unit/Ml Inj 14 UNITS SC HS for 30 Days, #420 UNITS Continued Medications: Glyburide (Diabeta) 5 Mg Tab 10 MG PO DAILY, TAB Ibuprofen (Advil) 200 Mg Tab 600 MG PO DAILY, TAB Discontinued Medications: Metformin Hcl (Glucophage) 1,000 Mg Tab 1000 MG PO BID, TAB Discharge Exam Review of Systems: Constitutional: No fever, No chills, No sweats, No weakness, No fatigue Respiratory: No cough, No shortness of breath, No hemoptysis Cardiovascular: No chest pain, No edema, No palpitations Abdomen: + diarrhea, No pain, No nausea, No vomiting, No constipation Musculoskeletal: No joint pain, No muscle pain, No swelling, No calf pain Genitourinary - Male: No hematuria, No dysuria Neurologic: No weakness, No numbness/tingling Psychiatric: No depression symptoms, No anxiety Hematologic / Lymphatic: No abnormal bleeding/bruising Integumentary: No rash, No itch, No new/changing skin lesions Physical Exam: General Appearance: no apparent distress, + obese Eyes: normal inspection, PERRL ENT: hearing grossly normal Neck: supple Respiratory/Chest: lungs clear, no respiratory distress, no accessory muscle use Cardiovascular: regular rate, rhythm Abdomen / GI: normal bowel sounds, non tender, soft Extremities: no calf tenderness, no pedal edema, + pertinent finding (Right foot wound dressing in clean dressing) Neurologic/Psychiatric: alert, normal mood/affect, oriented x 3 Skin: normal color, warm/dry, no rash Hospital Course Admission H&P: 46-year-old male, with PMHx of T2DM- noncompliant, presented to ED w/ diabetic foot infection. This is a diabetic who presents with a diabetic foot infection on the right. He has an ulcer over the left fourth MTP area plantar aspect of his right foot which is caused by having a pocket knife in his boot and not being aware of it due to his neuropathy. He notices particularly reddened area to the right ankle and when inspecting his plantar aspect noticed an ulcer that is approximately 1 x 2 cm. The patient does not check his blood sugars at home, admits to noncompliance with his diet, and has never seen a electric switch tester. The patient's last A1c in our system is from 2012 and it was 8.9. In the ER. Blood cultures and was given daptomycin and Zosyn, Zosyn will be continued and we'll substitute vancomycin at this time. Physical Exam Vital Signs Date Time Temp Pulse Resp B/P (MAP) Pulse Ox O2 Delivery O2 Flow Rate FiO2 01/10/17 19:07 Room Air 01/10/17 18:54 108 18 114/71 94 Room Air 01/10/17 16:45 Room Air 01/10/17 16:27 37.6 122 20 141/85 96 Room Air General Appearance: + mild distress, + obese Head: normocephalic, atraumatic Eyes: PERRL, EOMI ENT: hearing grossly normal, pharynx normal Neck: supple, no JVD Respiratory/Chest: chest non-tender, lungs clear, normal breath sounds Cardiovascular: regular rate, rhythm, no murmur Abdomen/GI: normal bowel sounds, non tender, soft Back: no CVA tenderness, no muscle spasm Extremities/Musculoskelatal: + pertinent finding (the patient has a macerated, 2 ulcer on the right plantar foot grade 3 with surrounding erythema to the foot to the ankle) Neurologic/Psych: alert, normal reflexes, + sensory deficit Grade 3 diabetic foot ulcers, secondary to having a pocket knife in his shoe: - Admitted to med/surg - Right foot x-ray on 01/10: Soft tissue edema with no acute bony abnormality seen in the right foot. - IV Zosyn + Vancomycin -- d/c Zosyn on 01/12 due to wound culture growing staph- continue Vanco pending sensitives and ID input -- Discussed w/ infectious disease, Keflex 500 mg PO TID x3 weeks at discharge - BCx- NGTD - Wound culture- staph aureus; sensitives reviewed - Infectious disease consulted, appreciate recommendations - Wound care consulted -- Will need outpatient f/u T2DM w/ neuropathy- UNCONTROLLED due to noncompliance of medications- hA1C 14.4% : - Continue Glyburide 10 mg daily and Metformin 1000 mg BID -- staff development educator recommends changing to Metformin XR 2000 mg daily at discharge - Lantus 14 u HS and BSG ACHS w/ sliding insulin scale - staff development educator consulted - Consult business operations manager Discharge regimen: Glyburide 10 mg daily, Metformin ER 2,000 mg daily, and Lantus 14 u SQ HS Provider patient w/ OneTouch Verio glucometer Scripts given for OneTouch Verio test strips to check 2x daily, OneTouch Delica lancets to check 2x daily, and [place] insulin pen needles Hypomagnesium: - Replaced w/ IV 1 gm mag x1 on 01/12; replaced w/ IV 1 gm x2 on 01/13 - Follow mag level, replace PRN Hypokalemia of 3.4 on 01/12- RESOLVED: - Replaced w/ KCL PO 20 mEq x1 - Follow PRP, replace PRN GI Prophylaxis: Maalox PRN, IV Zofran PRN, Colace and/or Milk of Mag PRN DVT prophylaxis: Lovenox 40 mg SQ q24 hrs Code Status: LEVEL I, FULL Dispo: Discharge to home w/ [facility] - Case management to setup Wound care and PCP follow-up Total Time Spent: Greater than 30 minutes This includes examination of the patient, discharge planning, medication reconciliation, and communication with other providers. Discharge Instructions Please refer to the electronic Patient Visit Report (Discharge Instructions) for additional information. Follow-Up Please follow-up with your PCP within 5-7 days Please follow-up with Wound care within 2 weeks Please follow-up/keep all of your subspecialty appointments Additional Copies To Idris Moreno M.D.
--- NOTE | 2017-01-13 09:18 | Discharge Instructions ---
Discharge Instructions Date of Service Jan 13, 2017. Admission Reason for Admission: Diabetic Foot Infection Discharge Discharge Diagnosis / Problem: Uncontrolled diabetes; diabetic foot ulcer Discharge Goals Goal(s): Decrease discomfort, Improve function, Improve disease control, Improve nutritional status, Learn about illness, Diagnostic testing, Therapeutic intervention, Prevent Disease Progression, Specific goals Activity Recommendations Activity Limitations: resume your previous activity . Instructions / Follow-Up Instructions / Follow-Up DIABETIC MEDICATIONS 1. Metformin ER 2,000 mg by mouth once daily 2. Glyburide 10 mg by mouth once daily 3. Insulin injection- Lantus 14 units subcutaneously injection at nighttime These medications are to control diabetes. It is VERY important you take this medications as prescribed to help control your sugars. Not taking your diabetic medications can lead to serious complications such as: heart disease, nerve damage, kidney damage, eye damage, and more skin ulcerations/delayed healing of wounds. You have voiced concern about Metformin causing some diarrhea. We discussed other treatment options; however, you have decided to continue this medication until your follow-up with your PCP. If this medication continues to cause diarrhea, please discuss this with your PCP, they can provide other medication options for you. Please follow the recommendations given to you by our parent educator and medical chemist. Please log your blood sugar 2 times per day- take this log to your PCP follow -up appointment. ANTIBIOTIC TREATMENT 1. Keflex 500 mg by mouth three times per day until prescription is completed FOLLOW-UPS: Home health services is being set-up for you to help ensure your are taking your medications properly and your wound is dressed and clean appropriately. Please follow-up with your PCP within 5-7 days Please follow-up with Wound Center within 2 weeks Please follow-up/keep all of your subspecialty appointments Current Hospital Diet Patient's current hospital diet: Diabetes Type 2 Diet Discharge Diet Recommended Diet: Diabetes Type 2 Diet Procedures Procedures Performed: Foot x-ray Pending Studies Studies pending at discharge: no Laboratory Results Last 24 Hours Test 01/12/17 10:21 01/12/17 11:09 01/12/17 16:24 01/12/17 20:10 Vancomycin Level Trough 13.6 mcg/ml Bedside Glucose 226 mg/dl 190 mg/dl 231 mg/dl Test 01/13/17 07:11 01/13/17 07:40 White Blood Count 9.37 K/uL Red Blood Count 4.52 M/uL Hemoglobin 13.0 g/dL Hematocrit 36.6 % Mean Corpuscular Volume 81.0 fL Mean Corpuscular Hemoglobin 28.8 pg Mean Corpuscular Hemoglobin Concent 35.5 g/dl RDW Standard Deviation 37.3 fL RDW Coefficient of Variation 12.5 % Platelet Count 201 K/uL Mean Platelet Volume 8.8 fL Sodium Level 140 mmol/L Potassium Level 3.6 mmol/L Chloride Level 109 mmol/L Carbon Dioxide Level 25 mmol/L Anion Gap 6.0 mmol/L Blood Urea Nitrogen 12 mg/dl Creatinine 1.00 mg/dl Est Creatinine Clear Calc Drug Dose 118.3 ml/min Estimated GFR () 104.1 Estimated GFR (Non- 89.9 BUN/Creatinine Ratio 11.6 Random Glucose 166 mg/dl Calcium Level 8.5 mg/dl Magnesium Level 1.6 mg/dl Bedside Glucose 149 mg/dl Hemoglobin A1c Test 01/10/17 16:45 Range/Units Estimated Average Glucose 367 mg/dl Hemoglobin A1c 14.4 H 4.5-5.6 % Medical Emergencies . Who to Call and When: Medical Emergencies: If at any time you feel your situation is an emergency, please call 911 immediately. . Non-Emergent Contact Non-Emergency issues call your: Primary Care Provider . . "Provider Documentation" section prepared by Isabella Interiano. . VTE Core Measure Inpt VTE Proph given/why not?: Enoxaparin (Lovenox)SQ
[2017-01-13] MEDS ORDERED: CEPH500C2 PO ×2 (09:21→09:22)
[2017-01-13 09:57] VITALS: BP 154/89; PULSE 99; TEMP 36.7; O2SAT 95
[2017-01-13 13:38] VITALS: BMI 41.5
[2017-01-14] MEDS ORDERED: VANCOMYCIN TROUGH ONE (12:30)
[2017-01-15 13:50] VITALS: Ht 172.7 cm; Wt 123.9 kg
--- NOTE | 2017-01-15 14:04 | Wound Clinic H&P ---
History & Physical Wound Clinic Date of Service: Jan 11, 2017. Complaint: Ulcer right foot Primary Care Physician: Idris Moreno M.D. History of Present Illness Patient states he developed an ulcer on his right foot after leaving a pocket knife in his boot last week. Patient has no significant sensation due to his neuropathy. Patient states that he has no fever chills or night sweats. Patient noticed increased swelling and redness of the foot. No chest pain shortness of breath abdominal discomfort nausea or vomiting. Patient has not had a prior incident similar to this. No other systemic complaints at this time. Medical History (1) Rib pain on left side (2) Diabetic foot infection Surgical History Hx Abdominal Surgery: No Hx Cardiac Surgery: No Hx Urinary Tract Surgery: No Hx Orthopedic: No Social History Occupation: employed Smoking Status: Never Smoker Alcohol Use: none Current Medications Scheduled Cephalexin Monohydrate (Keflex), 500 MG PO TID Glyburide (Diabeta), 10 MG PO DAILY Ibuprofen (Advil), 600 MG PO DAILY Insulin Glargine (Lantus Solostar), 14 UNITS SC HS Metformin Ext Rel (Glucophage Ext Rel), 2,000 MG PO DAILY Allergies Coded Allergies: No Known Allergies (Unverified , 01/10/17) Review of Systems 10 systems were reviewed in their entirety and positive findings were noted in HPI. Physical Exam Vital Signs: Last Vital Signs Documentation Date Time Temp Pulse Resp B/P (MAP) Pulse Ox O2 Delivery O2 Flow Rate FiO2 01/13/17 09:57 36.7 99 18 95 Room Air 01/13/17 07:54 154/89 (110) General: The patient is sitting in a hospital bed in no distress. Alert, cooperative and appropriate to all questions. HEENT: Pupils equal and reactive to light. Sclera clear, EOM intact. Neck: Supple, No JVD noted Chest: CTA in all [place]. No deformity Heart: RRR without murmurs, S3, S4, thrills, rubs or heaves Extremities: There is an ulceration on the plantar surface of the right foot measuring 1.8 x 1 x 0.4 cm. Since over the head of the fourth metatarsal. There is some surrounding maceration callus formation as well as central slough. No active drainage or odor noted no significant periwound erythema present. Patient is neuropathic. Pulses +2 bilaterally equal. Range of motion of the foot. Neurological: Alert and oriented x3. No focal deficits. Skin: No rashes, papules, vesicles, excoriations Assessment 1.: traumatic wound right foot in the face of diabetes. Plan At this time the ulcerations and required debridement. The patient's permission and after the application of topical Xylocaine 4% the site was debridement with a #5 curette. Surrounding undermined skin central sluffing some subcutaneous tissue was removed. He did occur but was controlled with direct pressure. The ulcerations be managed with Aquacel Ag and gauze change daily. Patient will have an orthotic consult for offloading purposes. Patient will be monitored during hospitalization will be followed up in the outpatient setting following discharge. This represented an excisional debridement of less than 20 cm.
[2017-02-18] MEDS ORDERED: LINE1TAB2 PO (13:46)
[2017-02-18] MEDS ORDERED: RIFA300C34 PO (13:46)
[2017-02-19] MEDS ORDERED: ATOR10TA88 PO (07:51)
[2017-02-23] MEDS ORDERED: LORA-741 PO (08:10)
[2017-03-29] MEDS ORDERED: GLUC100014 PO (08:30)
[2017-03-29] MEDS ORDERED: CHON150C PO (08:30)
== END 2017-01-13 13:20 | disposition home health service (06) | DRG 74 ==
LOC: C.EDB 16:19 → C.MS4W 18:24 → EDBEDREQ 18:43 → ENRESERV 19:09
PROVIDERS: ADMIT Internal Medicine; ATTEND Hospitalist
DX: E11.40 Type 2 diabetes mellitus with diabetic neuropathy, unspecified (principal); E11.69 Type 2 diabetes mellitus with other specified complication; L97.529 Non-pressure chronic ulcer of other part of left foot with unspecified severity; Z86.14 Personal history of Methicillin resistant Staphylococcus aureus infection; Z91.14 Patient's other noncompliance with medication regimen; Y92.009 Unspecified place in unspecified non-institutional (private) residence as the place of occurrence of the external cause; W45.8XXA Other foreign body or object entering through skin, initial encounter; B95.8 Unspecified staphylococcus as the cause of diseases classified elsewhere; E83.42 Hypomagnesemia; E87.6 Hypokalemia

== ENCOUNTER → 2017-01-20 | Outpatient (CLI) | payer BC ==
[~2017-01-20] MED LIST changes: +ATOR10TA88 PO; +CEPH500C2 PO; +CHON150C PO; +GLUC100014 PO; +IBUP-1050 PO; +INSDGIPEN SC; +LINE1TAB2 PO; +LORA-741 PO; +METF-382 PO; -METF-384 PO; +RIFA300C34 PO
[2017-01-20 12:47] LABS: BLOOD UREA NITROGEN 16 mg/dl (7-18); BUN/CREATININE RATIO 16.4 (10-20); CARBON DIOXIDE 28 mmol/L (21-32); CHLORIDE 105 mmol/L (98-107); GLUCOSE 159 mg/dl (70-99); MAGNESIUM 1.6 mg/dl (1.8-2.4); POTASSIUM 3.9 mmol/L (3.5-5.1); SODIUM 140 mmol/L (136-145)
[2017-01-20 12:51] LABS: CHOLESTEROL 139 mg/dl (0-200); CHOLESTEROL/HDL RATIO 4.6; HDL CHOLESTEROL 30 mg/dl; LDL CHOLESTEROL CALCULATED 88 mg/dl; TRIGLYCERIDES 106 mg/dl (0-150); VERY LOW DENSITY LIPOPROT CALC 21 mg/dl
== END | disposition home or self-care (01) ==
LOC: C.LABBFT 09:57
PROVIDERS: ATTEND Physician Assistant Medical
DX: E11.9 Type 2 diabetes mellitus without complications (principal)

== ENCOUNTER → 2017-02-03 | Outpatient (CLI) | payer BC | END | disposition home or self-care (01) | LOC: C.LABBFT 10:13 | PROVIDERS: ATTEND Physician Assistant Medical | DX: R79.0 Abnormal level of blood mineral (principal) ==

== ENCOUNTER → 2017-02-12 | Outpatient (CLI) | payer BC ==
[~2017-02-12] MED LIST changes: +GADAVIST IV PRN
--- NOTE | 2017-02-12 12:55 | DIAGNOSTIC IMAGING REPORT ---
RIGHT LOWER EXT NONJOINT COMBO CLINICAL HISTORY: 46 years-old Male presenting with wound on the bottom of the right forefoot for 2 months, diabetes. TECHNIQUE: Multisequence, multiplanar MR imaging of the right forefoot was performed before and after the administration of intravenous contrast. IV contrast: 12.4 mL of Gadavist. COMPARISON: Plain radiographs of the right foot from 01/10/2017. FINDINGS: Localizer images: Unremarkable. Focal soft tissue irregularity over the head of the fourth metatarsal with subcutaneous fat infiltration. Subjacent loss of normal T1 hyperintense bone marrow signal intensity within the head of the fourth metatarsal as well as at the base of the proximal phalanx of the fourth toe. Extensive T2 hyperintense edema noted throughout this region and the bone marrow. This region enhances on postcontrast imaging. Extensive infiltration surrounding the fourth metatarsophalangeal joint. Rim-enhancing, T2 hyperintense collection in the volar soft tissues extending from the fourth metatarsophalangeal joint into the volar and lateral soft tissues. Phlegmonous changes extend to the along the dorsolateral aspect of the joint. The collection measures approximately 2 cm. Diffuse dorsal subcutaneous edema. Moderate fatty atrophy of the flexor compartment muscles. Mild T2 hyperintensity of the musculature, nonspecific. 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 Additionally, this is associated with a soft tissue abscess along the volar adjacent soft tissues. This is subjacent to the site of suspected cutaneous wound. The report will be called/faxed according to standard departmental protocol. Electronically signed by: Misael Wakefield M.D. 02/12/2017 12:53 PM Dictated Date/Time: 02/12/2017 12:32 PM
== END | disposition home or self-care (01) ==
LOC: C.MRI 10:21
PROVIDERS: ATTEND Emergency Medicine
DX: E11.628 Type 2 diabetes mellitus with other skin complications (principal); L02.611 Cutaneous abscess of right foot; R93.7 Abnormal findings on diagnostic imaging of other parts of musculoskeletal system

== ENCOUNTER → 2017-03-03 | Outpatient (CLI) | payer BC ==
[~2017-03-03] MED LIST changes: -CEPH500C2 PO; -GADAVIST IV PRN; -METF-382 PO
[2017-03-03 17:38] LABS: BASO % 0.6 %; BASO ABS # 0.04 K/uL (0-0.2); COMPLETE YES; HEMATOCRIT 38.5 % (42-52); IG% 0.3 %; LYMPH % 25.8 %; LYMPH ABS # 1.59 K/uL (1.2-3.4); MEAN CELL VOLUME 82.4 fL (80-100); MEAN CORPUSCULAR HEMOGLOBIN 28.7 pg (25-34); MEAN CORPUSCULAR HGB CONC 34.8 g/dl (32-36); MEAN PLATELET VOLUME 9.5 fL (7.4-10.4); MONO % 6.5 %; NEUT % 60.8 %; PLATELET COUNT 228 K/uL (130-400); RED BLOOD COUNT 4.67 M/uL (4.7-6.1); WHITE BLOOD COUNT 6.16 K/uL (4.8-10.8)
[2017-03-03 18:17] LABS: ALT/SGPT 32 U/L (12-78); BLOOD UREA NITROGEN 26 mg/dl (7-18); BUN/CREATININE RATIO 21.7 (10-20); CALCIUM 9.6 mg/dl (8.5-10.1); CARBON DIOXIDE 26 mmol/L (21-32); CHLORIDE 103 mmol/L (98-107); GLUCOSE 97 mg/dl (70-99); POTASSIUM 4.4 mmol/L (3.5-5.1); SODIUM 138 mmol/L (136-145)
[2017-03-03 18:20] LABS: ALB/GLOB RATIO 0.9 (0.9-2); ALKALINE PHOSPHATASE 58 U/L (45-117); AST/SGOT 19 U/L (15-37)
== END | disposition home or self-care (01) ==
LOC: C.LABBFT 14:08
PROVIDERS: ATTEND Internal Medicine Infectious Disease
DX: E83.42 Hypomagnesemia (principal)

== ENCOUNTER → 2017-03-22 | Outpatient (CLI) | payer BC ==
--- NOTE | 2017-03-22 17:11 | DIAGNOSTIC IMAGING REPORT ---
THORACIC SPINE 3 VIEWS HISTORY: THORACIC BACK PAIN, ACUTE LUMBAR BACK PAIN COMPARISON: None. FINDINGS: There is no fracture. No subluxation. Mild degenerative disc disease throughout the thoracic spine. There are flowing anterior osteophytes within the majority of the thoracic spine. Paraspinal soft tissues are unremarkable. Mild disc space narrowing at L4-L5 and moderate to space narrowing at L5-S1. Mild to moderate facet degenerative changes within the lower lumbar spine. The sacrum is intact. L5 is demonstrated to be a transitional vertebra with partial sacralization of the left L5 transverse process which demonstrates a pseudoarthrosis with the sacrum. IMPRESSION: No fracture or subluxation within the thoracic or lumbar spine. Degenerative changes as described above. Electronically signed by: Sebastián Moon M.D. 03/22/2017 5:09 PM Dictated Date/Time: 03/22/2017 5:05 PM
== END | disposition home or self-care (01) ==
LOC: C.RAD 15:28
PROVIDERS: ATTEND Physician Assistant Medical
DX: M54.5 Low back pain (principal); M54.6 Pain in thoracic spine

== ENCOUNTER → 2017-03-22 | Outpatient (CLI) | payer BC | END | disposition home or self-care (01) | LOC: C.LABBFT 14:37 | PROVIDERS: ATTEND Physician Assistant Medical | DX: R79.0 Abnormal level of blood mineral (principal) ==

== ENCOUNTER → 2017-03-24 | Outpatient (CLI) | payer BC ==
[2017-03-24 12:17] LABS: BASO % 0.5 %; BASO ABS # 0.03 K/uL (0-0.2); COMPLETE YES; EOS % 5.1 %; HEMATOCRIT 38.7 % (42-52); IG% 0.3 %; LYMPH % 24.3 %; LYMPH ABS # 1.48 K/uL (1.2-3.4); MEAN CELL VOLUME 82.5 fL (80-100); MEAN CORPUSCULAR HEMOGLOBIN 28.8 pg (25-34); MEAN CORPUSCULAR HGB CONC 34.9 g/dl (32-36); MEAN PLATELET VOLUME 8.8 fL (7.4-10.4); MONO % 7.9 %; NEUT % 61.9 %; PLATELET COUNT 197 K/uL (130-400); RED BLOOD COUNT 4.69 M/uL (4.7-6.1)
[2017-03-24 12:43] LABS: ALT/SGPT 20 U/L (12-78); AST/SGOT 11 U/L (15-37); BLOOD UREA NITROGEN 28 mg/dl (7-18); BUN/CREATININE RATIO 25.9 (10-20); CALCIUM 9.2 mg/dl (8.5-10.1); CARBON DIOXIDE 28 mmol/L (21-32); CHLORIDE 104 mmol/L (98-107); GLUCOSE 116 mg/dl (70-99); POTASSIUM 4.6 mmol/L (3.5-5.1); SODIUM 138 mmol/L (136-145)
[2017-03-24 12:46] LABS: ALKALINE PHOSPHATASE 54 U/L (45-117)
== END | disposition home or self-care (01) ==
LOC: C.LABBFT 11:05
PROVIDERS: ATTEND Emergency Medicine
DX: L97.509 Non-pressure chronic ulcer of other part of unspecified foot with unspecified severity (principal)

== ENCOUNTER → 2017-04-26 | Outpatient (CLI) | payer BC ==
[2017-04-26 12:39] LABS: ESTIMATED AVERAGE GLUCOSE 148 mg/dl; HA1C FLAG Normal (Normal)
[2017-04-26 12:49] LABS: ALT/SGPT 20 U/L (12-78); AST/SGOT 7 U/L (15-37); BLOOD UREA NITROGEN 23 mg/dl (7-18); CALCIUM 8.5 mg/dl (8.5-10.1); CARBON DIOXIDE 23 mmol/L (21-32); CHLORIDE 107 mmol/L (98-107); CHOLESTEROL 128 mg/dl (0-200); CREATININE 0.98 mg/dl (0.60-1.40); GLUCOSE 92 mg/dl (70-99); POTASSIUM 4.4 mmol/L (3.5-5.1); SODIUM 141 mmol/L (136-145)
[2017-04-26 13:00] LABS: ALB/GLOB RATIO 0.9 (0.9-2); ALKALINE PHOSPHATASE 52 U/L (45-117); HDL CHOLESTEROL 43 mg/dl; LDL CHOLESTEROL CALCULATED 75 mg/dl; TRIGLYCERIDES 50 mg/dl (0-150); VERY LOW DENSITY LIPOPROT CALC 10 mg/dl
[2017-04-26 16:12] LABS: RATIO 37.3 mcg/mg (0-30.0)
== END | disposition home or self-care (01) ==
LOC: C.LABBFT 08:05
PROVIDERS: ATTEND Physician Assistant
DX: E11.9 Type 2 diabetes mellitus without complications (principal)

== ENCOUNTER → 2017-05-21 | Outpatient (CLI) | payer BC ==
[~2017-05-21] MED LIST changes: +ATOR10TA82 PO; -ATOR10TA88 PO; +GADAVIST IV PRN
--- NOTE | 2017-05-21 18:38 | DIAGNOSTIC IMAGING REPORT ---
LUMBAR SPINE COMBINATION CLINICAL HISTORY: 47 years-old Male presenting with BACK PAIN for 3 months continuously worsening, history of arthritis and degenerative disc disease, not helped by physical therapy or chiropractor, no numbness or tingling, no prior surgery or cancer. TECHNIQUE: Multisequence, multiplanar MR imaging of the lumbar spine was performed before and after the administration of intravenous contrast. IV contrast: 13 mL of Gadavist. COMPARISON: None. FINDINGS: Localizer images: Unremarkable. Normal lumbar lordosis. T1 hyperintense, T2 hyperintense fat-containing lesions in the L2 and L4 vertebral bodies consistent with benign hemangiomas. Vertebral bodies otherwise demonstrate normal height, alignment, and bone marrow signal intensity. Slight intervertebral disc height loss at L4-5 with desiccation and prominent disc bulge. In combination with facet arthropathy and ligament flavum thickening, this results in near complete effacement of CSF and moderate to severe bilateral neural foraminal narrowing. Postcontrast imaging demonstrates surrounding mild enhancement in the epidural space at the site of the disc bulge. Mass effect on the bilateral exiting L4 nerve root suspected. Minimal disc bulge noted at L3-4 with resultant mild bilateral neural foraminal narrowing. Spinal cord ends above the level of L1. Crowding of the cauda equina at L4-5. Otherwise normal configuration of the cauda equina. Paraspinal soft tissues demonstrate intramuscular edema in the lower lumbar spine. Enhancement also noted in this region on postcontrast imaging. No paraspinal inflammatory change. No abnormal enhancements of the cauda equina. IMPRESSION: 1. Prominent disc bulge at L4-5 with resultant spinal stenosis and moderate to severe bilateral neural foraminal narrowing resulting in mass effect on the bilateral exiting L4 nerve roots. 2. Paraspinal edema and enhancement in the lower lumbar spine likely represents muscle strain. Electronically signed by: Misael Wakefield M.D. 05/21/2017 6:37 PM Dictated Date/Time: 05/21/2017 6:30 PM
--- NOTE | 2017-05-21 18:46 | DIAGNOSTIC IMAGING REPORT ---
THORACIC SPINE COMBO CLINICAL HISTORY: 47 years-old Male presenting with BACK PAIN increasing for 3 months, arthritis and degenerative disc disease history, not helped by physical therapy or chiropractor, no numbness or tingling, no prior surgery or cancer. TECHNIQUE: Multisequence, multiplanar MR imaging of the thoracic spine was performed before and after the administration of intravenous contrast. IV contrast: 13 mL of Gadavist. COMPARISON: None. FINDINGS: Localizer images: Unremarkable. Normal thoracic kyphosis. Fatty endplate changes noted at the superior and inferior endplates of T10. Vertebral bodies otherwise demonstrate normal height, alignment, and bone marrow signal intensity. Intervertebral disc heights maintained although disc desiccation and small disc osteophyte complexes noted in the lower thoracic region from T7-8 through T11-12. Disc osteophyte complex most prominent at T9-10, where there is eccentric effacement of the right lateral recess. This results in only mild contouring of the spinal cord. This also results in mild right neural foraminal narrowing. Mild right neural foraminal narrowing also noted at T10-11 and T11-12. Thoracic spinal cord maintains normal morphology and signal intensity. Paraspinal soft tissues within normal limits. Postcontrast imaging demonstrates increased enhancement in the T7-8 disc space, which does not demonstrate evidence of adjacent endplate enhancement or edema. No abnormal enhancement of the spinal cord. IMPRESSION: 1. Mild degenerative changes in the lower thoracic spine with mild right neural foraminal narrowing from T9-10 through T10-11. Electronically signed by: Misael Wakefield M.D. 05/21/2017 6:44 PM Dictated Date/Time: 05/21/2017 6:37 PM
== END | disposition home or self-care (01) ==
LOC: C.MRI 16:40
PROVIDERS: ATTEND Physician Assistant Medical
DX: M51.26 Other intervertebral disc displacement, lumbar region (principal)

== ENCOUNTER → 2017-07-27 | Outpatient (CLI) | payer BC ==
[~2017-07-27] MED LIST changes: -GADAVIST IV PRN
[2017-07-27 16:46] LABS: BASO % 0.4 %; BASO ABS # 0.03 K/uL (0-0.2); EOS % 5.6 %; EOS ABS # 0.47 K/uL (0-0.5); HEMATOCRIT 39.7 % (42-52); HEMOGLOBIN 13.1 g/dL (14.0-18.0); IG# 0.02 K/uL (0.00-0.02); LYMPH % 21.5 %; LYMPH ABS # 1.81 K/uL (1.2-3.4); MEAN CELL VOLUME 87.8 fL (80-100); MEAN PLATELET VOLUME 10.1 fL (7.4-10.4); MONO % 5.8 %; MONO ABS # 0.49 K/uL (0.11-0.59); NEUT % 66.5 %; NEUT ABS # 5.59 K/uL (1.4-6.5); PLATELET COUNT 205 K/uL (130-400); RED CELL DISTRIBUTION WIDTH CV 13.4 % (11.5-14.5); RED CELL DISTRIBUTION WIDTH SD 43.1 fL (36.4-46.3); WHITE BLOOD COUNT 8.41 K/uL (4.8-10.8)
[2017-07-27 17:04] LABS: ALBUMIN 3.6 gm/dl (3.4-5.0); ALKALINE PHOSPHATASE 69 U/L (45-117); ALT/SGPT 27 U/L (12-78); AST/SGOT 17 U/L (15-37); BLOOD UREA NITROGEN 20 mg/dl (7-18); CALCIUM 8.8 mg/dl (8.5-10.1); CARBON DIOXIDE 28 mmol/L (21-32); GLUCOSE 191 mg/dl (70-99); SODIUM 138 mmol/L (136-145)
[2017-07-27 17:14] LABS: TOTAL PROTEIN 6.9 gm/dl (6.4-8.2)
== END | disposition home or self-care (01) ==
LOC: C.LABBFT 12:10
PROVIDERS: ATTEND Physician Assistant Medical
DX: R60.0 Localized edema (principal)

== ENCOUNTER → 2017-07-30 | Outpatient (CLI) | payer BC ==
[2017-07-30 16:33] LABS: RETIC COUNT % 1.4 % (0.5-2.0)
== END | disposition home or self-care (01) ==
LOC: C.LABBFT 15:10
PROVIDERS: ATTEND Physician Assistant Medical
DX: D64.9 Anemia, unspecified (principal)

== ENCOUNTER → 2017-08-09 | Outpatient (CLI) | payer BC ==
[~2017-08-09] MED LIST changes: +ASPI81TA28 PO; +CARV3.122 PO; +CARV6.252 PO; +FRS/40 PO; +INSDGI SC; +LOSA50TA6 PO; +MELO-84 PO; +METF500T5 PO; +POLYCAP4 PO; +POTA1TAB97 PO; +RANI150T3 PO; +ROSU20TA PO; +TRAM-10 PO
--- NOTE | 2017-08-09 17:07 | ECHOCARDIOGRAM REPORT ---
*NOTICE TO RECEIVING DEMOCRAT AGENCY This information is strictly Confidential and protected under [place] law. [place] law prohibits you from making any further disclosure of this information unless further disclosure is expressly permitted by the written consent of the person to whom it pertains or is authorized by law. A general authorization for the release of medical or other information is not sufficient for this purpose. Hospital accepts no responsibility if the information is made available to any other person, INCLUDING THE PATIENT. Interpretation Summary * Name: MAIKEL NUR Study Date: 08/09/2017 02:41 PM * Patient Location: [facility] HR: 96 * : 1970 (M/d/yyyy) Gender: Male Height: 68 in * Age: 47 yrs Ethnicity: [place] Weight: 300 lb * Ordering Physician: Iwona Acosta * Referring Physician: Iwona Acosta * Performed By: Amy Woodruff RCS * * Reason For Study: Abnormal EKG * BSA: 2.4 m2 * -- Conclusions -- * 1. Normal LV size and wall thickness. * 2. Moderate LV dysfunction. LVEF 35-40%. Moderate hypokinesis involving anteroseptal, septal and anterior atwood. Inferior wall is akinetic. Normal function in inferolateral and base to mid lateral wall. * 3. Normal RV size and function. * 4. Mild mitral regurgitation. * 5. Normal estimated RA and PA pressures. * 6. Compared with prior study on 02/05/2013: LV dysfunction and regional wall motion abnormalities are new. Procedure Details * A complete two-dimensional transthoracic echocardiogram was performed (2D, M-mode, Doppler and color flow Doppler). Left Ventricle * The left ventricle is normal in size. * There is normal left ventricular wall thickness. * Ejection Fraction = 35-40%. * There is inferior wall akinesis. * Moderate hypokinesis involving anteroseptal, septal and anterior atwood. Normal function in inferolateral and base to mid lateral wall. Right Ventricle * The right ventricle is grossly normal size. * The right ventricular systolic function is normal as assessed by tricuspid annular plane systolic excursion (TAPSE) (normal >1.5 cm). Atria * The left atrial size is normal. * The right atrium is mildly dilated. * No ASD detected; PFO is not assessed. Mitral Valve * The mitral valve is grossly normal. * There is no mitral valve stenosis. * There is mild mitral regurgitation. Tricuspid Valve * There is trace tricuspid regurgitation. Aortic Valve * The aortic valve opens well. * The aortic valve is trileaflet. * No hemodynamically significant valvular aortic stenosis. * There is no significant aortic regurgitation. * Trace aortic regurgitation. Pulmonic Valve * The pulmonary valve is inadequately visualized, but the Doppler data is adequate for interpretation. * There is no pulmonic valvular stenosis. * There is no pulmonic valvular regurgitation. Great Vessels * The aortic root and proximal ascending aorta are normal sized. Pericardium/Pleural * There is no pericardial effusion. Great Vessels * Normal inferior vena cava size and collapsability with sniff indicates a normal right atrial pressure of 3 mmHg * There is no evidence of pulmonary hypertension. The PA systolic pressure is less than 36 mmHg. MMode 2D Measurements and Calculations IVSd 1.1 cm IVSs 1.3 cm LVIDd 5.2 cm LVIDs 4.3 cm LVPWd 1.1 cm LVPWs 1.5 cm IVS/LVPW 1.0 FS 17.2 % EDV(Teich) 131.7 ml ESV(Teich) 84.8 ml EF(Teich) 35.6 % EDV(cubed) 143.6 ml ESV(cubed) 81.6 ml EF(cubed) 43.2 % % IVS thick 20.7 % % LVPW thick 41.3 % LV mass(C)d 217.6 grams LV mass(C)dI 89.6 grams/m\S\2 LV mass(C)s 238.4 grams LV mass(C)sI 98.2 grams/m\S\2 SV(Teich) 46.9 ml SI(Teich) 19.3 ml/m\S\2 SV(cubed) 62.0 ml SI(cubed) 25.5 ml/m\S\2 Ao root diam 4.0 cm Ao root area 12.9 cm\S\2 ACS 2.0 cm LA dimension 4.6 cm asc Aorta Diam 3.5 cm LA/Ao 1.1 EDV(MOD-sp4) 130.0 ml ESV(MOD-sp4) 91.0 ml EF(MOD-sp4) 30.0 % EDV(MOD-sp2) 164.0 ml ESV(MOD-sp2) 113.0 ml EF(MOD-sp2) 31.1 % SV(MOD-sp4) 39.0 ml SI(MOD-sp4) 16.1 ml/m\S\2 SV(MOD-sp2) 51.0 ml SI(MOD-sp2) 21.0 ml/m\S\2 Doppler Measurements and Calculations MV E max maryam 105.2 cm/sec MV A max maryam 73.5 cm/sec MV E/A 1.4 MV P1/2t max maryam 112.6 cm/sec MV P1/2t 83.3 msec MVA(P1/2t) 2.6 cm\S\2 MV dec slope 395.7 cm/sec\S\2 MV dec time 0.18 sec Ao V2 max 108.7 cm/sec Ao max PG 4.7 mmHg Ao max PG (full) 3.0 mmHg LV V1 max PG 1.7 mmHg LV V1 max 65.8 cm/sec PA V2 max 68.4 cm/sec PA max PG 1.9 mmHg TR max maryam 193.2 cm/sec
== END | disposition home or self-care (01) ==
LOC: C.CPL 14:31
PROVIDERS: ATTEND Nurse Practitioner
DX: R60.0 Localized edema (principal); R94.31 Abnormal electrocardiogram [ECG] [EKG]

== ENCOUNTER → 2017-08-12 | Outpatient (CLI) | payer BC ==
[~2017-08-12] MED LIST changes: -ASPI81TA28 PO; -CARV6.252 PO; -MELO-84 PO; +MELO15TA4 PO; -ROSU20TA PO
[2017-08-12 18:07] LABS: BLOOD UREA NITROGEN 26 mg/dl (7-18); CARBON DIOXIDE 32 mmol/L (21-32); CREATININE 1.34 mg/dl (0.60-1.40); GLUCOSE 208 mg/dl (70-99); POTASSIUM 4.3 mmol/L (3.5-5.1); SODIUM 136 mmol/L (136-145)
== END | disposition home or self-care (01) ==
LOC: C.LABBFT 14:21
PROVIDERS: ATTEND Nurse Practitioner
DX: I50.21 Acute systolic (congestive) heart failure (principal)

== ENCOUNTER → 2017-08-30 | Outpatient (CLI) | payer BC ==
[~2017-08-30] MED LIST changes: +ASPI81TA28 PO; -ATOR10TA82 PO; +CARV6.252 PO; -CHON150C PO; -GLUC100014 PO; -IBUP-1050 PO; -INSDGIPEN SC; -LINE1TAB2 PO; -LORA-741 PO; +MELO-84 PO; -MELO15TA4 PO; -POTA1TAB97 PO; -RIFA300C34 PO; +ROSU20TA PO
[2017-08-30 13:41] LABS: HEMOGLOBIN A1C 8.3 % (4.5-5.6)
[2017-08-30 13:44] LABS: ALBUMIN 3.5 gm/dl (3.4-5.0); ALT/SGPT 21 U/L (12-78); BLOOD UREA NITROGEN 29 mg/dl (7-18); CALCIUM 9.4 mg/dl (8.5-10.1); CARBON DIOXIDE 28 mmol/L (21-32); CHOLESTEROL 131 mg/dl (0-200); CREATININE 1.17 mg/dl (0.60-1.40); GLUCOSE 157 mg/dl (70-99); POTASSIUM 4.1 mmol/L (3.5-5.1); SODIUM 139 mmol/L (136-145)
[2017-08-30 13:55] LABS: ALKALINE PHOSPHATASE 64 U/L (45-117); AST/SGOT 11 U/L (15-37); LDL CHOLESTEROL CALCULATED 67 mg/dl; TOTAL PROTEIN 7.1 gm/dl (6.4-8.2)
== END | disposition home or self-care (01) ==
LOC: C.LABBFT 08:07
PROVIDERS: ATTEND Internal Medicine
DX: E11.29 Type 2 diabetes mellitus with other diabetic kidney complication (principal)

== ENCOUNTER → 2017-09-08 | Day surgery (SDC) | payer BC ==
[2017-08-13 12:16] VITALS: BMI 45.0
[~2017-09-08] VITALS: Ht 175.3 cm; Wt 137.3 kg
[~2017-09-08] MED LIST changes: -CARV3.122 PO; +FENTANYL CITRATE INJ 50 MCG/1 ML 2 ML VIAL ONE; +LIDOCAINE HCL 2% 2 ML VIAL (20MG/ML) ONE; -METF500T5 PO; +PROPOFOL IV EMULSION 10 MG/ML 20 ML VIAL IV ONE; +SODIUM CHLORIDE 0.9% 500ML 500 ML IV ONE
[2017-09-08 13:12] VITALS: Ht 175.3 cm; Wt 137.3 kg
--- NOTE | 2017-09-08 13:28 | Endo History and Physical ---
History & Physical Date of Service: Sep 08, 2017. Chief Complaint: ANEMIA, GASTRIC REFLUX Referring Physician: DR OLIVEROS History of Present Illness EGD anemia/GERD/epigastric pain Past Medical History Diabetes, Reflux, Heart Disease, CHF, Hypertension, [place] Past Surgical History Hx Cardiac Surgery: No Hx Internal Defibrillator: No Hx Pacemaker: No Hx Abdominal Surgery: No Hx of Implantable Prosthesis: No Hx Post-Op Nausea and Vomiting: No Hx Cancer Surgery: No Hx Thoracic Surgery: No Hx Orthopedic: Yes (RT HAND I&D, LEFT LEG I&D (CELLULITIS)) Hx Urinary Tract Surgery: No Family History Colon CA Social History Smoking Status: Never Smoker Hx Substance Use: No Hx Alcohol Use: No Allergies Coded Allergies: No Known Allergies (Verified , 09/08/17) Current Medications Reported Home Medications Medications Dose Route/Sig Max Daily Dose Days Date Category Lantus (Insulin Glargine) 100 Unit/Ml Inj 30 Units SC QPM 09/03/17 Reported Aspirin Ec (Aspirin) 81 Mg Tab 81 Mg PO DAILY 09/03/17 Reported Crestor (Rosuvastatin Calcium) 20 Mg Tab 1 Tab PO DAILY 30 09/03/17 Reported Coreg (Carvedilol) 6.25 Mg Tab 1 Tab PO BID 90 09/03/17 Reported Lasix (Furosemide) 40 Mg Tab 40 Mg PO BID 08/13/17 Reported Iferex 150 (Polysaccharide Iron Complex) 150 Mg Cap 1 Cap PO BID 08/13/17 Reported Zantac (Ranitidine HCl) 150 Mg Tab 150 Mg PO BID 08/13/17 Reported Mobic (Meloxicam) 15 Mg Tab 15 Mg PO DAILY 08/13/17 Reported Diabeta (Glyburide) 5 Mg Tab 10 Mg PO QAM 08/13/17 Reported Ultram (Tramadol HCl) 50 Mg Tab 50 Mg PO Q8H PRN 08/13/17 Reported Cozaar (Losartan Potassium) 50 Mg Tab 50 Mg PO QAM 08/13/17 Reported Vital Signs Weight (Kilograms): 137.27 Height (Feet): 5 Height (Inches): 9 Date Time Temp Pulse Resp B/P (MAP) Pulse Ox O2 Delivery O2 Flow Rate FiO2 09/08/17 13:11 36.1 91 18 131/79 (96) 97 Room Air Physical Exam General Appearance: WD/WN, no apparent distress Respiratory/Chest: Auscultation: breath sounds normal Cardiovascular: Heart Auscultation: RRR Abdomen: Bowel Sounds: normal Inspection & Palpation: soft, non-distended, no tenderness, guarding & rebound Assessment and Plan EGD bx
--- NOTE | 2017-09-08 13:57 | Discharge Instructions ---
Endoscopy Patient Instructions Date / Procedure(s) Performed Sep 08, 2017. EGD Allergy Information Coded Allergies: No Known Allergies (Verified , 09/08/17) Discharge Date / Findings Sep 08, 2017. 1) gastric contents 2) esophagitis 3) inflammation gastric cardia Medication Instructions Stopped Medication(s): STOPPED LANTUS 09/06/17 ASPIRIN LAST DOSE 09/07/17 Restart Stopped Medication(s): Reported Home Medications Medications Dose Route/Sig Max Daily Dose Days Date Category Lantus (Insulin Glargine) 100 Unit/Ml Inj 30 Units SC QPM 09/03/17 Reported Aspirin Ec (Aspirin) 81 Mg Tab 81 Mg PO DAILY 09/03/17 Reported Crestor (Rosuvastatin Calcium) 20 Mg Tab 1 Tab PO DAILY 30 09/03/17 Reported Coreg (Carvedilol) 6.25 Mg Tab 1 Tab PO BID 90 09/03/17 Reported Lasix (Furosemide) 40 Mg Tab 40 Mg PO BID 08/13/17 Reported Iferex 150 (Polysaccharide Iron Complex) 150 Mg Cap 1 Cap PO BID 08/13/17 Reported Zantac (Ranitidine HCl) 150 Mg Tab 150 Mg PO BID 08/13/17 Reported Mobic (Meloxicam) 15 Mg Tab 15 Mg PO DAILY 08/13/17 Reported Diabeta (Glyburide) 5 Mg Tab 10 Mg PO QAM 08/13/17 Reported Ultram (Tramadol HCl) 50 Mg Tab 50 Mg PO Q8H PRN 08/13/17 Reported Cozaar (Losartan Potassium) 50 Mg Tab 50 Mg PO QAM 08/13/17 Reported Omeprazole 40mg daily stop Zantac once Prilosec begins Reported Home Medications Medications Dose Route/Sig Max Daily Dose Days Date Category Lantus (Insulin Glargine) 100 Unit/Ml Inj 30 Units SC QPM 09/03/17 Reported Aspirin Ec (Aspirin) 81 Mg Tab 81 Mg PO DAILY 09/03/17 Reported Crestor (Rosuvastatin Calcium) 20 Mg Tab 1 Tab PO DAILY 30 09/03/17 Reported Coreg (Carvedilol) 6.25 Mg Tab 1 Tab PO BID 90 09/03/17 Reported Lasix (Furosemide) 40 Mg Tab 40 Mg PO BID 08/13/17 Reported Iferex 150 (Polysaccharide Iron Complex) 150 Mg Cap 1 Cap PO BID 08/13/17 Reported Zantac (Ranitidine HCl) 150 Mg Tab 150 Mg PO BID 08/13/17 Reported Mobic (Meloxicam) 15 Mg Tab 15 Mg PO DAILY 08/13/17 Reported Diabeta (Glyburide) 5 Mg Tab 10 Mg PO QAM 08/13/17 Reported Ultram (Tramadol HCl) 50 Mg Tab 50 Mg PO Q8H PRN 08/13/17 Reported Cozaar (Losartan Potassium) 50 Mg Tab 50 Mg PO QAM 08/13/17 Reported Omeprazole 40mg daily stop Zantac once Prilosec begins Provider Instructions Activity Restrictions - No exercising or heavy lifting for 24 hours. - Do not drink alcohol the day of the procedure. - Do not drive a car or operate machinery until the day after the procedure. - Do not make any important decisions or sign important papers in 24 hours after the procedure. Following Day: - Return to full activity which may include returning to work/school. Diet Start your diet with liquids and light foods (jello, soup, juice, toast). Then eat your usual diet if not nauseated. Treatment For Common After Affects For mild abdominal pain, bloating, or excessive gas: - Rest - Eat lightly - Lie on right side Follow-Up Information Follow-up with DR OLIVEROS as scheduled Anesthesia Information What You Should Know You have had a procedure that required some medicine to reduce anxiety and discomfort. This treatment is called moderate sedation. After receiving the treatment, you may be sleepy, but you will be able to breathe on your own. The effects of the treatment may last for several hours. Follow these instructions along with Activity/Diet recommendations noted above: * Do NOT do anything where dizziness or clumsiness would be dangerous. * Rest quietly at home today, then you can be up and about tomorrow. * Have a responsible person stay with you the rest of today. * You may have had an I.V. today. If so, you may take the dressing off later today. Recommendations Call your doctor if: * Trouble breathing * Continuous vomiting for more than 24 hours * Temperature above 101 degrees * Severe abdominal pain or bloating * Pain not relieved by pain medicine ordered * There is increased drainage or redness from any incision * A large amount of rectal bleeding greater than 2-3 tablespoons. (If you had a polyp/s removed or have hemorrhoids, a small amount of blood - from the rectum is to be expected.) * You have any unanswered questions or concerns. IN THE EVENT OF A SERIOUS EMERGENCY, GO TO THE NEAREST EMERGENCY ROOM Your discharge instructions were prepared by provider Alexsander Live. Patient Instructions Signature Page Juan Carlos Dutta Patient (or Guardian) Signature/Date: I have read and understand the instructions given to me by my caregivers. Caregiver/RN/Doctor Signature/Date: The above-named patient and/or guardian has received patient instructions on this date. + Original Patient Signature Page (only) stays with chart. Please make copy for patient.
--- NOTE | 2017-09-08 14:07 | GI REPORT ---
Procedure Date: 09/08/2017 1:29 PM Procedure: Upper GI endoscopy Indications: Epigastric abdominal pain, Iron deficiency anemia, Gastro-esophageal reflux disease Medicines: Propofol per Anesthesia Complications: No immediate complications. Estimated blood loss: Minimal. Estimated Blood Loss: Estimated blood loss was minimal. Procedure: Pre-Anesthesia Assessment: - Prior to the procedure, a History and Physical was performed, and patient medications and allergies were reviewed. The patient's tolerance of previous anesthesia was also reviewed. The risks and benefits of the procedure and the sedation options and risks were discussed with the patient. All questions were answered, and informed consent was obtained. Prior Anticoagulants: The patient has taken no previous anticoagulant or antiplatelet agents. ASA Grade Assessment: III - A patient with severe systemic disease. After reviewing the risks and benefits, the patient was deemed in satisfactory condition to undergo the procedure. After obtaining informed consent, the endoscope was passed under direct vision. Throughout the procedure, the patient's blood pressure, pulse, and oxygen saturations were monitored continuously. The scope was introduced through the mouth, and advanced to the second part of duodenum. The upper GI endoscopy was accomplished without difficulty. The patient tolerated the procedure well. Findings: The upper third of the esophagus and middle third of the esophagus were normal. LA Grade B (one or more mucosal breaks greater than 5 mm, not extending between the tops of two mucosal folds) esophagitis with no bleeding was found 45 to 47 cm from the incisors. The Z-line was irregular and was found 47 cm from the incisors. Localized moderate mucosal changes characterized by congestion, erythema, erosion, granularity and inflammation were found in the cardia. Biopsies were taken with a cold forceps for histology. Estimated blood loss was minimal. Verification of patient identification for the specimen was done by the physician and photo technician using the patient's name and medical record number. A medium amount of a phytobezoar was found in the cardia and in the gastric fundus. The exam of the stomach was otherwise normal. The examined duodenum was normal. The second portion of the duodenum was normal. Biopsies for histology were taken with a cold forceps for evaluation of celiac disease. Estimated blood loss was minimal. Verification of patient identification for the specimen was done by the physician and photo technician using the patient's name and medical record number. The cardia and gastric fundus were normal on retroflexion. Impression: - Normal upper third of esophagus and middle third of esophagus. - LA Grade B reflux esophagitis. - Z-line irregular, 47 cm from the incisors. - Congested, erythematous, eroded, granular and inflamed mucosa in the cardia. Biopsied. - A medium amount of a phytobezoar in the stomach. - Normal examined duodenum. - Normal second portion of the duodenum. Biopsied. Recommendation: - Discharge patient to home (ambulatory). - Gastroparesis diet. - Continue present medications. - Await pathology results. - Return to referring physician as previously scheduled. MD Alexsander Velazquez MD 09/08/2017 2:07:02 PM This report has been signed electronically. Note Initiated On: 09/08/2017 1:29 PM I attest to the content of the Intraoperative Record and orders documented therein, exceptions below
[2017-09-08 14:29] VITALS: BP 113/64; PULSE 85; O2SAT 94
--- NOTE | 2017-09-08 14:39 | Anesthesiology Progress Note ---
Anesthesia Post Op Note Date & Time Sep 08, 2017 at 14:38 Vital Signs Pain Intensity: 0 Vital Signs Past 12 Hours Date Time Temp Pulse Resp B/P (MAP) Pulse Ox O2 Delivery O2 Flow Rate FiO2 09/08/17 14:14 84 16 105/58 (74) 96 Room Air 09/08/17 13:59 94 16 105/61 (76) 94 Room Air 09/08/17 13:11 36.1 91 18 131/79 (96) 97 Room Air Notes Mental Status: alert / awake / arousable, participated in evaluation Pt Amnestic to Procedure: Yes Nausea / Vomiting: adequately controlled Pain: adequately controlled Airway Patency, RR, SpO2: stable & adequate BP & HR: stable & adequate Hydration State: stable & adequate Anesthetic Complications: no major complications apparent
== END | disposition home or self-care (01) ==
LOC: C.GI 12:43
PROVIDERS: ATTEND Internal Medicine Gastroenterology
DX: D50.9 Iron deficiency anemia, unspecified (principal); K22.10 Ulcer of esophagus without bleeding; K21.0 Gastro-esophageal reflux disease with esophagitis; I25.10 Atherosclerotic heart disease of native coronary artery without angina pectoris; I10 Essential (primary) hypertension; E11.9 Type 2 diabetes mellitus without complications; I25.2 Old myocardial infarction; Z79.4 Long term (current) use of insulin; Z79.82 Long term (current) use of aspirin

== ENCOUNTER → 2017-09-22 | Day surgery (SDC) | payer BC ==
[2017-09-13 12:52] VITALS: Ht 174 cm; Wt 137.3 kg
[~2017-09-22] VITALS: Ht 174 cm; Wt 137.3 kg
[~2017-09-22] MED LIST changes: +BUME2TAB3 PO; -FENTANYL CITRATE INJ 50 MCG/1 ML 2 ML VIAL ONE; +MIDAZOLAM HCL 1 MG/ML 2ML VIAL ONE; +ONDANSETRON INJ 2 MG/ML 2 ML VIAL ONE; +PRLSR20 PO
--- NOTE | 2017-09-22 15:14 | Endo History and Physical ---
History & Physical Date of Service: Sep 22, 2017. Chief Complaint: anemia Referring Physician: Dr. Moreno History of Present Illness anemia Past Medical History Diabetes, Reflux, Heart Disease, CHF, Hypertension, [place] Past Surgical History Hx Cardiac Surgery: No (HEART CATH/NO STENTS) Hx Internal Defibrillator: No Hx Pacemaker: No Hx Abdominal Surgery: No Hx Post-Op Nausea and Vomiting: No Hx Cancer Surgery: No Hx Thoracic Surgery: No Hx Orthopedic: Yes (RT HAND I&D, LEFT LEG I&D (CELLULITIS)) Hx Urinary Tract Surgery: No Family History Colon [place] Social History Smoking Status: Never Smoker Hx Substance Use: No Hx Alcohol Use: No Allergies Coded Allergies: No Known Allergies (Verified , 09/22/17) Current Medications Reported Home Medications Medications Dose Route/Sig Max Daily Dose Days Date Category Bumex (Bumetanide) 2 Mg Tab 1 Tab PO BID 30 09/22/17 Reported Prilosec (Omeprazole) 20 Mg Capcr 20 Mg PO DAILY 09/22/17 Reported Lantus (Insulin Glargine) 100 Unit/Ml Inj 30 Units SC QPM 09/03/17 Reported Aspirin Ec (Aspirin) 81 Mg Tab 81 Mg PO DAILY 09/03/17 Reported Crestor (Rosuvastatin Calcium) 20 Mg Tab 1 Tab PO DAILY 30 09/03/17 Reported Coreg (Carvedilol) 6.25 Mg Tab 1 Tab PO BID 90 09/03/17 Reported Iferex 150 (Polysaccharide Iron Complex) 150 Mg Cap 1 Cap PO BID 08/13/17 Reported Zantac (Ranitidine HCl) 150 Mg Tab 150 Mg PO BID 08/13/17 Reported Mobic (Meloxicam) 15 Mg Tab 15 Mg PO DAILY 08/13/17 Reported Diabeta (Glyburide) 5 Mg Tab 10 Mg PO QAM 08/13/17 Reported Ultram (Tramadol HCl) 50 Mg Tab 50 Mg PO Q8H PRN 08/13/17 Reported Cozaar (Losartan Potassium) 50 Mg Tab 50 Mg PO QAM 08/13/17 Reported Vital Signs Weight (Kilograms): 137.27 Height (Feet): 5 Height (Inches): 8.5 Date Time Temp Pulse Resp B/P (MAP) Pulse Ox O2 Delivery O2 Flow Rate FiO2 09/22/17 13:43 36.3 91 18 142/92 (109) 99 Room Air Physical Exam General Appearance: WD/WN, no apparent distress Respiratory/Chest: Auscultation: breath sounds normal Cardiovascular: Heart Auscultation: RRR Abdomen: Bowel Sounds: normal Inspection & Palpation: soft, non-distended, no tenderness, guarding & rebound colonoscopy for anemia Assessment and Plan colonoscopy for anemia
--- NOTE | 2017-09-22 16:42 | Discharge Instructions ---
Endoscopy Patient Instructions Date / Procedure(s) Performed Sep 22, 2017. Colonoscopy Allergy Information Coded Allergies: No Known Allergies (Verified , 09/22/17) Discharge Date / Findings Sep 22, 2017. polyps; diverticulosis Medication Instructions Stopped Medication(s): Aspirin stopped 09-18-17. Restart Stopped Medication(s): Reported Home Medications Medications Dose Route/Sig Max Daily Dose Days Date Category Bumex (Bumetanide) 2 Mg Tab 1 Tab PO BID 30 09/22/17 Reported Prilosec (Omeprazole) 20 Mg Capcr 20 Mg PO DAILY 09/22/17 Reported Lantus (Insulin Glargine) 100 Unit/Ml Inj 30 Units SC QPM 09/03/17 Reported Aspirin Ec (Aspirin) 81 Mg Tab 81 Mg PO DAILY 09/03/17 Reported Crestor (Rosuvastatin Calcium) 20 Mg Tab 1 Tab PO DAILY 30 09/03/17 Reported Coreg (Carvedilol) 6.25 Mg Tab 1 Tab PO BID 90 09/03/17 Reported Iferex 150 (Polysaccharide Iron Complex) 150 Mg Cap 1 Cap PO BID 08/13/17 Reported Zantac (Ranitidine HCl) 150 Mg Tab 150 Mg PO BID 08/13/17 Reported Mobic (Meloxicam) 15 Mg Tab 15 Mg PO DAILY 08/13/17 Reported Diabeta (Glyburide) 5 Mg Tab 10 Mg PO QAM 08/13/17 Reported Ultram (Tramadol HCl) 50 Mg Tab 50 Mg PO Q8H PRN 08/13/17 Reported Cozaar (Losartan Potassium) 50 Mg Tab 50 Mg PO QAM 08/13/17 Reported Reported Home Medications Medications Dose Route/Sig Max Daily Dose Days Date Category Bumex (Bumetanide) 2 Mg Tab 1 Tab PO BID 30 09/22/17 Reported Prilosec (Omeprazole) 20 Mg Capcr 20 Mg PO DAILY 09/22/17 Reported Lantus (Insulin Glargine) 100 Unit/Ml Inj 30 Units SC QPM 09/03/17 Reported Aspirin Ec (Aspirin) 81 Mg Tab 81 Mg PO DAILY 09/03/17 Reported Crestor (Rosuvastatin Calcium) 20 Mg Tab 1 Tab PO DAILY 30 09/03/17 Reported Coreg (Carvedilol) 6.25 Mg Tab 1 Tab PO BID 90 09/03/17 Reported Iferex 150 (Polysaccharide Iron Complex) 150 Mg Cap 1 Cap PO BID 08/13/17 Reported Zantac (Ranitidine HCl) 150 Mg Tab 150 Mg PO BID 08/13/17 Reported Mobic (Meloxicam) 15 Mg Tab 15 Mg PO DAILY 08/13/17 Reported Diabeta (Glyburide) 5 Mg Tab 10 Mg PO QAM 08/13/17 Reported Ultram (Tramadol HCl) 50 Mg Tab 50 Mg PO Q8H PRN 08/13/17 Reported Cozaar (Losartan Potassium) 50 Mg Tab 50 Mg PO QAM 08/13/17 Reported Provider Instructions Activity Restrictions - No exercising or heavy lifting for 24 hours. - Do not drink alcohol the day of the procedure. - Do not drive a car or operate machinery until the day after the procedure. - Do not make any important decisions or sign important papers in 24 hours after the procedure. Following Day: - Return to full activity which may include returning to work/school. Diet Start your diet with liquids and light foods (jello, soup, juice, toast). Then eat your usual diet if not nauseated. Treatment For Common After Affects For mild abdominal pain, bloating, or excessive gas: - Rest - Eat lightly - Lie on right side Follow-Up Information Follow-up with Dr. Moreno as scheduled Anesthesia Information What You Should Know You have had a procedure that required some medicine to reduce anxiety and discomfort. This treatment is called moderate sedation. After receiving the treatment, you may be sleepy, but you will be able to breathe on your own. The effects of the treatment may last for several hours. Follow these instructions along with Activity/Diet recommendations noted above: * Do NOT do anything where dizziness or clumsiness would be dangerous. * Rest quietly at home today, then you can be up and about tomorrow. * Have a responsible person stay with you the rest of today. * You may have had an I.V. today. If so, you may take the dressing off later today. Recommendations Call your doctor if: * Trouble breathing * Continuous vomiting for more than 24 hours * Temperature above 101 degrees * Severe abdominal pain or bloating * Pain not relieved by pain medicine ordered * There is increased drainage or redness from any incision * A large amount of rectal bleeding greater than 2-3 tablespoons. (If you had a polyp/s removed or have hemorrhoids, a small amount of blood - from the rectum is to be expected.) * You have any unanswered questions or concerns. IN THE EVENT OF A SERIOUS EMERGENCY, GO TO THE NEAREST EMERGENCY ROOM Your discharge instructions were prepared by provider Alexsander Live. Patient Instructions Signature Page Juan Carlos Dutta Patient (or Guardian) Signature/Date: I have read and understand the instructions given to me by my caregivers. Caregiver/RN/Doctor Signature/Date: The above-named patient and/or guardian has received patient instructions on this date. + Original Patient Signature Page (only) stays with chart. Please make copy for patient.
--- NOTE | 2017-09-22 16:50 | Anesthesiology Progress Note ---
Anesthesia Post Op Note Date & Time Sep 22, 2017 at 16:50 Vital Signs Pain Intensity: 0 Vital Signs Past 12 Hours Date Time Temp Pulse Resp B/P (MAP) Pulse Ox O2 Delivery O2 Flow Rate FiO2 09/22/17 16:43 85 20 150/97 (114) 97 Room Air 09/22/17 16:28 83 18 116/89 (98) 97 Room Air 09/22/17 13:43 36.3 91 18 142/92 (109) 99 Room Air Notes Mental Status: alert / awake / arousable, participated in evaluation Pt Amnestic to Procedure: Yes Nausea / Vomiting: adequately controlled Pain: adequately controlled Airway Patency, RR, SpO2: stable & adequate BP & HR: stable & adequate Hydration State: stable & adequate Anesthetic Complications: no major complications apparent
--- NOTE | 2017-09-22 16:52 | GI REPORT ---
Procedure Date: 09/22/2017 3:02 PM Procedure: Colonoscopy Indications: Unexplained iron deficiency anemia Medicines: Propofol per Anesthesia Complications: No immediate complications. Estimated blood loss: Minimal. Estimated Blood Loss: Estimated blood loss: none. Procedure: Pre-Anesthesia Assessment: - Prior to the procedure, a History and Physical was performed, and patient medications and allergies were reviewed. The patient's tolerance of previous anesthesia was also reviewed. The risks and benefits of the procedure and the sedation options and risks were discussed with the patient. All questions were answered, and informed consent was obtained. Prior Anticoagulants: The patient has taken no previous anticoagulant or antiplatelet agents. ASA Grade Assessment: III - A patient with severe systemic disease. After reviewing the risks and benefits, the patient was deemed in satisfactory condition to undergo the procedure. After I obtained informed consent, the scope was passed under direct vision. Throughout the procedure, the patient's blood pressure, pulse, and oxygen saturations were monitored continuously. The On-site loaner was introduced through the anus and advanced to the cecum, identified by appendiceal orifice and ileocecal valve. The colonoscopy was extremely difficult due to a redundant colon, significant looping, a tortuous colon and the patient's body habitus. Successful completion of the procedure was aided by increasing the dose of sedation medication, changing the patient to a supine position and using manual pressure. The patient tolerated the procedure well. The quality of the bowel preparation was fair. Approximatley one needed to complete colonoscopy Findings: The perianal and digital rectal examinations were normal. Pertinent negatives include normal sphincter tone, no palpable rectal lesions and no anal lesion or abnormality was detected. Two sessile polyps were found at 30 cm proximal to the anus. The polyps were 8 to 10 mm in size. These polyps were removed with a hot snare. Resection and retrieval were complete. Estimated blood loss was minimal. Verification of patient identification for the specimen was done by the physician and pharmacy order entry technician using the patient's name and medical record number. Many small-mouthed diverticula were found in the entire colon. The descending colon, ascending colon and cecum appeared normal. Biopsies were taken with a cold forceps for histology. Estimated blood loss was minimal. Verification of patient identification for the specimen was done by the physician and pharmacy order entry technician using the patient's name and medical record number. A 4 mm polyp was found in the rectum. The polyp was sessile. The polyp was removed with a cold snare. Resection was complete, but the polyp tissue was not retrieved. The retroflexed view of the distal rectum and anal verge was normal and showed no anal or rectal abnormalities. Impression: - Preparation of the colon was fair. - Two 8 to 10 mm polyps at 30 cm proximal to the anus, removed with a hot snare. Resected and retrieved. - Diverticulosis in the entire examined colon. - The descending colon, ascending colon and cecum are normal. Biopsied. - One 4 mm polyp in the rectum, removed with a cold snare. Complete resection. Polyp tissue not retrieved. - The distal rectum and anal verge are normal on retroflexion view. -MODIFIER 22- Recommendation: - Discharge patient to home (ambulatory). - Resume regular diet. - Continue present medications. - Await pathology results. - Repeat colonoscopy for surveillance based on pathology results. - Return to referring physician as previously scheduled. MD Alexsander Velazquez MD 09/22/2017 4:51:58 PM This report has been signed electronically. Note Initiated On: 09/22/2017 3:02 PM I attest to the content of the Intraoperative Record and orders documented therein, exceptions below
[2017-09-22 17:02] VITALS: BP 148/94; PULSE 87; O2SAT 96
== END | disposition home or self-care (01) ==
LOC: C.GI 13:18
PROVIDERS: ATTEND Internal Medicine Gastroenterology
DX: D50.9 Iron deficiency anemia, unspecified (principal); D12.9 Benign neoplasm of anus and anal canal; D12.8 Benign neoplasm of rectum; K57.30 Diverticulosis of large intestine without perforation or abscess without bleeding; E11.9 Type 2 diabetes mellitus without complications; K21.9 Gastro-esophageal reflux disease without esophagitis; I51.9 Heart disease, unspecified; I50.9 Heart failure, unspecified; I11.0 Hypertensive heart disease with heart failure; I25.2 Old myocardial infarction; Z80.0 Family history of malignant neoplasm of digestive organs; Z79.4 Long term (current) use of insulin; Z79.899 Other long term (current) drug therapy; Z79.82 Long term (current) use of aspirin

== ENCOUNTER → 2017-10-06 | Outpatient (CLI) | payer BC ==
[~2017-10-06] MED LIST changes: -FRS/40 PO; -LIDOCAINE HCL 2% 2 ML VIAL (20MG/ML) ONE; -MIDAZOLAM HCL 1 MG/ML 2ML VIAL ONE; -ONDANSETRON INJ 2 MG/ML 2 ML VIAL ONE; -PROPOFOL IV EMULSION 10 MG/ML 20 ML VIAL IV ONE; -SODIUM CHLORIDE 0.9% 500ML 500 ML IV ONE
--- NOTE | 2017-10-06 13:20 | DIAGNOSTIC IMAGING REPORT ---
NUCLEAR GASTRIC EMPTYING STUDY CLINICAL HISTORY: Abdominal bloating. COMPARISON STUDY: No priors. TECHNIQUE: Following the oral administration of 1.07 mCi of technetium 99m sulfur colloid in egg sandwich and 8 ounces of water, static abdominal images are obtained anteriorly and posteriorly at 0 minutes, 1 hour, 2 hour, and 4 hour time intervals. Gastric emptying was calculated utilizing the geometric mean method. FINDINGS: There is approximately 93% activity remaining at the 1 hour time interval, 93% remaining at the 2 hour time interval (normal is less than 60%), and 76% activity remaining at the 4 hour time interval (normal is less than 10%). IMPRESSION: Findings are consistent with delayed gastric emptying for solids. Electronically signed by: Iker Hinton M.D. 10/06/2017 1:18 PM Dictated Date/Time: 10/06/2017 1:18 PM
== END | disposition home or self-care (01) ==
LOC: C.NUCL 08:41
PROVIDERS: ATTEND Physician Assistant Medical
DX: R14.0 Abdominal distension (gaseous) (principal)

== ENCOUNTER → 2017-10-26 | Outpatient (CLI) | payer BC ==
[~2017-10-26] VITALS: Ht 175.3 cm; Wt 136.2 kg
[~2017-10-26] MED LIST changes: +METO-157 PO; +PANT40TA PO
[2017-10-26 16:20] VITALS: BP 114/74; PULSE 92; Ht 175.3 cm; Wt 136.2 kg
== END | disposition home or self-care (01) ==
LOC: C.NEUR 13:48
PROVIDERS: ATTEND Internal Medicine Pulmonary Disease
DX: R53.83 Other fatigue (principal); G47.9 Sleep disorder, unspecified; G25.81 Restless legs syndrome; I42.8 Other cardiomyopathies; I50.22 Chronic systolic (congestive) heart failure; E66.01 Morbid (severe) obesity due to excess calories; N28.9 Disorder of kidney and ureter, unspecified; Z68.41 Body mass index [BMI] 40.0-44.9, adult; I25.10 Atherosclerotic heart disease of native coronary artery without angina pectoris; E11.29 Type 2 diabetes mellitus with other diabetic kidney complication; E11.43 Type 2 diabetes mellitus with diabetic autonomic (poly)neuropathy

== ENCOUNTER 2017-11-30 08:43 | Emergency (ER) | payer BC ==
[~2017-11-30] VITALS: Ht 172.7 cm; Wt 137.6 kg
[~2017-11-30 08:43] MED LIST changes: -MELO-84 PO; -PRLSR20 PO; -RANI150T3 PO
[2017-11-30 08:51] VITALS: TEMP 37.3; Ht 172.7 cm; Wt 137.6 kg
[2017-11-30] MEDS ORDERED: CEFTRIAXONE SOD INJ 1 GM ADDVIAL IV STA (09:15)
[2017-11-30 09:48] LABS: BASO % 0.3 %; BASO ABS # 0.03 K/uL (0-0.2); EOS % 3.2 %; HEMATOCRIT 37.5 % (42-52); IG# 0.03 K/uL (0.00-0.02); LYMPH % 15.1 %; LYMPH ABS # 1.42 K/uL (1.2-3.4); MEAN CELL VOLUME 84.3 fL (80-100); MEAN CORPUSCULAR HEMOGLOBIN 29.2 pg (25-34); MEAN CORPUSCULAR HGB CONC 34.7 g/dl (32-36); MONO % 7.4 %; NEUT % 73.7 %; NEUT ABS # 6.92 K/uL (1.4-6.5); PLATELET COUNT 179 K/uL (130-400); RED CELL DISTRIBUTION WIDTH CV 14.7 % (11.5-14.5); RED CELL DISTRIBUTION WIDTH SD 45.5 fL (36.4-46.3)
[2017-11-30] MEDS ORDERED: GLCSR/500 PO (09:57)
[2017-11-30] MEDS ORDERED: CRG3125 PO (09:57)
[2017-11-30 10:03] LABS: CALCIUM 9.1 mg/dl (8.5-10.1); CREATININE 1.24 mg/dl (0.60-1.40); POTASSIUM 4.1 mmol/L (3.5-5.1)
--- NOTE | 2017-11-30 10:20 | DIAGNOSTIC IMAGING REPORT ---
L ELBOW MIN 3 VIEWS ROUTINE CLINICAL HISTORY: Left elbow pain and swelling. COMPARISON: Left forearm radiographs May 26, 2016. FINDINGS: Alignment of the left elbow is anatomic. No fracture or osseous lesion is identified. Equivocal left elbow joint effusion is present. Soft tissue swelling overlying olecranon is noted. IMPRESSION: 1. No acute fracture. 2. Soft tissue swelling overlying the olecranon. 3. Equivocal left elbow joint effusion. Electronically signed by: Beni Walker M.D. 11/30/2017 10:19 AM Dictated Date/Time: 11/30/2017 10:17 AM
[2017-11-30] MEDS ORDERED: CEPH500C2 PO (10:59)
[2017-11-30 11:16] VITALS: BP 136/78; PULSE 88; O2SAT 96
--- NOTE | 2017-11-30 16:53 | EMERGENCY ROOM VISIT NOTE ---
ED Visit Note First contact with patient: 08:57 CHIEF COMPLAINT: Left elbow pain. HISTORY OF PRESENT ILLNESS: Mr. nguyen is a 47-year-old white male who ambulates into the ED complaining of left elbow pain over the olecranon process. Patient reports over the last 3 days he has noted some mild pain and swelling over the left olecranon and distal humerus. Then 2 days ago family noticed the development of some mild erythema and warmth to the area. He reports he said previous cellulitis to the lower leg and hand and this reminds him of his previous episodes. Associated with the red and warmth in this patient reports he is also having a mild pressure sensation in the posterior elbow. He rates his discomfort 4/10. The pain is nonradiating. The pain worsens with palpation. He has not identified any alleviating factors related to the pain. He has not taken any medications for pain prior to arrival at the hospital. He denies any associated symptoms including fevers, chills, sweats, other skin eruptions, other skin color trauma, recent trauma to the elbow, recent soft tissue injuries to the elbow, chest pain, shortness of breath, abdominal pain, decreased appetite, abdominal pain, nausea/vomiting, left upper extremity weakness/numbness/tingling peer REVIEW OF SYSTEMS: As noted above in History of Present Illness; at least 8 body systems are reviewed with the patient and her noted above unless otherwise negative. PAST MEDICAL HISTORY: As previously noted, diabetes, hypertension, unspecified heart disease, gastric ulcers, dyslipidemia. CURRENT MEDICATION: Ultram, DiaBeta, iron, aspirin, Lantus, Bumex, Protonix, Reglan, Crestor, metformin, Carvedilol ALLERGIES TO MEDICATION: Patient denies. SOCIAL HISTORY: Patient is currently employed; he feels safe in his home environment; he denies tobacco use; he denies tobacco use. PHYSICAL EXAM: Vital Signs: Date Time Temp Pulse Resp B/P (MAP) Pulse Ox O2 Delivery O2 Flow Rate FiO2 11/30/17 11:16 88 18 136/78 96 11/30/17 08:51 37.3 102 18 144/82 96 Room Air General: 47 year-old white male in acute distress, nontoxic appearing, febrile and hemodynamically stable. Neurological: Awake, alert and oriented to person, place and time. Answering questions appropriately and following commands. Skin: Warm, dry and pink. Left Elbow: Over the posterior aspect of the olecranon process and the distal humerus patient has a roundish area of erythema measuring approximately 4 cm. It is minimally tender to touch. The area is indurated but not fluctuant. There is no lymphangitis. Thorax: Lungs sounds are clear to auscultation and equal bilaterally with symmetrical chest wall movement. No wheezing, rales or rhonchi. No increased respiratory effort. Abdomen: Flat, soft and nontender. Positive bowel sounds in all quadrants. No guarding or rigidity. Left Upper Extremity: No gross bony deformity. No tenderness in the shoulder, proximal humerus, forearm or wrist. Mild tenderness over his area of erythema without bony deformity, bony crepitus, swelling or ecchymosis. Full range of motion in all movements of the shoulder, forearm and wrist. Full range of motion against resistance of the elbow. No axillary lymphadenopathy. Throughout the lower arm and hand the skin was warm and pink and capillary refill was brisk. He was able to distinguish light sensations to all dermatomes. ED COURSE: Patient is assessed as noted above. Patient's medication list was reviewed. Laboratory Testing: Test 11/30/17 09:30 Range/Units White Blood Count 9.40 4.8-10.8 K/uL Red Blood Count 4.45 4.7-6.1 M/uL Hemoglobin 13.0 14.0-18.0 g/dL Hematocrit 37.5 42-52 % Mean Corpuscular Volume 84.3 80-100 fL Mean Corpuscular Hemoglobin 29.2 25-34 pg Mean Corpuscular Hemoglobin Concent 34.7 32-36 g/dl Platelet Count 179 130-400 K/uL Mean Platelet Volume 9.0 7.4-10.4 fL Neutrophils (%) (Auto) 73.7 % Lymphocytes (%) (Auto) 15.1 % Monocytes (%) (Auto) 7.4 % Eosinophils (%) (Auto) 3.2 % Basophils (%) (Auto) 0.3 % Neutrophils # (Auto) 6.92 1.4-6.5 K/uL Lymphocytes # (Auto) 1.42 1.2-3.4 K/uL Monocytes # (Auto) 0.70 0.11-0.59 K/uL Eosinophils # (Auto) 0.30 0-0.5 K/uL Basophils # (Auto) 0.03 0-0.2 K/uL RDW Standard Deviation 45.5 36.4-46.3 fL RDW Coefficient of Variation 14.7 11.5-14.5 % Immature Granulocyte % (Auto) 0.3 % Immature Granulocyte # (Auto) 0.03 0.00-0.02 K/uL Sodium Level 138 136-145 mmol/L Potassium Level 4.1 3.5-5.1 mmol/L Chloride Level 103 98-107 mmol/L Carbon Dioxide Level 28 21-32 mmol/L Anion Gap 7.0 3-11 mmol/L Blood Urea Nitrogen 37 7-18 mg/dl Creatinine 1.24 0.60-1.40 mg/dl Est Creatinine Clear Calc Drug Dose 100.1 ml/min Estimated GFR () 79.7 Estimated GFR (Non- 68.8 BUN/Creatinine Ratio 30.2 10-20 Random Glucose 120 70-99 mg/dl Calcium Level 9.1 8.5-10.1 mg/dl Blood Culture: Pending Left Elbow X-Rays: Were read by myself and the radiologist showing no acute fractures or subluxations. Mild soft tissue swelling over the olecranon process. Radiologist also notes an equivocal left elbow effusion. An IV lock was initiated and patient received 1 g of Rocephin IV. Patient was educated about his condition and instructed on his treatment plan; he verbalized understanding and agreement with this plan. CLINICAL IMPRESSION: Cellulitis of the left elbow. DISPOSITION: Patient discharged to home in stable condition; prior to departure he was reassessed and subjectively reported he was feeling slightly better and rated his discomfort 3/10. PLAN: Patient was encouraged alternate ibuprofen and acetaminophen as needed for pain. Patient was prescribed Keflex 500 mg 4 times a day for 10 days. Patient was encouraged to keep the elbow clean with soap and water. Patient was encouraged to watch for worsening signs of infection. Patient was encouraged to follow-up with his PCP or return to the ED in 36-48 hours for recheck. Patient was encouraged return the ED for worsening signs of infection or any new /concerning symptoms.
--- NOTE | 2017-12-01 12:12 | Pharmacy Progress Note ---
ED Pharmacist Culture FollowUp Date of Service: December 01, 2017. Patient with one preliminary positive BC growing gram positive cocci. Patient was seen yesterday for left arm cellulitis by Will Mast PA-C. I called the patient who stated he was not febrile, but the cellulitis appears to have gotten worse. He also stated he had a [facility] today @ [id number]. I relayed this information to the provider who stated he would review and call the patient's outpatient provider to assess whether further or inpatient management is necessary.
== END 2017-11-30 11:17 | disposition home or self-care (01) ==
LOC: C.EDB 08:45 → C.EDA 11:17
DX: L03.114 Cellulitis of left upper limb (principal); E11.9 Type 2 diabetes mellitus without complications; I11.9 Hypertensive heart disease without heart failure; E78.5 Hyperlipidemia, unspecified; Z79.899 Other long term (current) drug therapy; Z79.4 Long term (current) use of insulin; Z79.82 Long term (current) use of aspirin

== ENCOUNTER 2019-02-16 23:35 | Inpatient (IN) ==
[2019-02-17] MEDS ORDERED: SODIUM CHLORIDE 0.9% 1000ML 1,000 ML IV SCH (00:15)
--- NOTE | 2019-02-17 00:45 | Emergency Department Note ---
History of Present Illness General Chief complaint: Hypotension Stated complaint: LOW BP,LOW HEART RATE,DIZZY,SORE History of Present Illness This 48-year-old presents to the ER complaining of weakness, lightheadedness, low blood pressure and low pulse Location: Generalized Quality: Weak Severity: Severe Duration: Today Timing: Today Context: Patient was too weak to get out of his car and the mother was concerned and brought him to the ER Modifying factors: better with rest; worse with activity Patient has diabetes. Blood sugar this morning was greater than 400. He did not recheck it. Patient states he is a poorly controlled diabetic. Patient states he feels quite fatigued and weak. He does have an infection to his right lateral chest wall. It has been there for a while. Patient denies chest pain, dyspnea, fever, chills, cough, congestion, abdominal pain. Home Medications Home Medications Medication Instructions Recorded Confirmed Type Lantus Solostar U-100 Insulin 60 unit SUBCUT DAILY 04/03/18 02/17/19 History aspirin 81 mg PO DAILY 04/03/18 02/17/19 History glyburide 10 mg PO DAILY 04/03/18 02/17/19 History metformin 1,000 mg PO BID 04/03/18 02/17/19 History carvedilol 3.125 mg tablet 6.25 mg PO BID tab 08/01/18 02/17/19 History tramadol 50 mg tablet 50 mg PO BID #60 tab 01/25/19 02/17/19 Rx pantoprazole 40 mg tablet,delayed 40 mg PO DAILY #90 tab 02/16/19 02/17/19 Rx release bumetanide 4 mg PO DAILY 02/17/19 02/17/19 History metolazone 5 mg PO DAILY PRN 02/17/19 02/17/19 History Allergies Allergy/AdvReac Type Severity Reaction Status Date / Time No Known Allergies Allergy Verified 02/17/19 00:16 Past Med/Surg History Medical History Hx MRSA infection Diabetes (Chronic) Cellulitis of left elbow HTN (hypertension) HLD (hyperlipidemia) (Chronic) GERD (gastroesophageal reflux disease) Chronic back pain Diabetic gastroparesis (Chronic) Morbid obesity with BMI of 45.0-49.9, adult (Acute) Peripheral edema CHF (congestive heart failure) CKD (chronic kidney disease) Diabetic peripheral neuropathy Leg abscess Myocardial infarction Non-ischemic cardiomyopathy Restless leg syndrome Surgical History Hx of cardiac cath Hx of colonoscopy Hx of hand surgery Family History Other No significant family history Social History Preferred Language: Pashto Communication Ability: Effective Visual Impairment: No Limitations Hand Ironer Required: No Beliefs That Will Affect Care: None Current Living Situation: Parent current occupational status: employed Feels Safe at Home: Yes Smoking Status: Never smoker Hx Alcohol Use: No Review of Systems All systems reviewed & are unremarkable except as noted in HPI & below Physical Exam Vital Signs Vital Signs - 24 hr 02/16/19 23:51 02/17/19 00:17 02/17/19 00:36 Temperature 36.6 C Temperature Source Oral Sepsis Recent Fever Within 48 Hours No Sepsis New/Unexplained Change in Mental Status No Sepsis Action Taken by Nursing No Action Required Pulse Rate - Lying 76 Pulse Rate - Sitting 75 Pulse Rate - Standing 81 Pulse Rate 77 75 Pulse Rate [Bilateral Apical] 76 Pulse Rhythm Regular Pulse Rhythm [Bilateral Apical] Regular Pulse Strength [Bilateral Apical] Normal Respiratory Rate 22 20 Respiratory Effort / Characteristics Non-Labored Respiratory Depth Normal Blood Pressure - Lying 101/57 L Blood Pressure - Sitting 100/56 L Blood Pressure- Standing 72/34 L Blood Pressure 103/68 Blood Pressure [Left Arm] 123/78 Blood Pressure Mean 79 Blood Pressure Mean [Left Arm] 93 Blood Pressure Position [Left Arm] Pulse Oximetry 97 91 93 Oxygen Delivery Method Room Air Room Air Room Air Oxygen Flow Rate 02/17/19 00:43 02/17/19 02:06 Temperature Temperature Source Sepsis Recent Fever Within 48 Hours Sepsis New/Unexplained Change in Mental Status Sepsis Action Taken by Nursing Pulse Rate - Lying Pulse Rate - Sitting Pulse Rate - Standing Pulse Rate Pulse Rate [Bilateral Apical] 77 78 Pulse Rhythm Pulse Rhythm [Bilateral Apical] Pulse Strength [Bilateral Apical] Respiratory Rate 20 14 Respiratory Effort / Characteristics Respiratory Depth Blood Pressure - Lying Blood Pressure - Sitting Blood Pressure- Standing Blood Pressure Blood Pressure [Left Arm] 110/59 L 128/70 Blood Pressure Mean Blood Pressure Mean [Left Arm] 76 89 Blood Pressure Position [Left Arm] Lying Pulse Oximetry 95 96 Oxygen Delivery Method Nasal Cannula Nasal Cannula Oxygen Flow Rate 2 2 VITALS: Vitals are noted on the nurse's note and reviewed by myself. Vital signs stable. GENERAL: White male mildly ill-appearing, in no acute distress, nondiaphoretic SKIN: Right lateral chest wall cellulitis around an area of induration. No palpable abscess. The rest of the skin was without rashes, erythema, edema, or bruising. There is no tenting of the skin. Capillary reflex less than 2 seconds. HEAD: Normocephalic atraumatic. EARS: External auditory canals clear, tympanic membranes pearly fernández without erythema or effusion bilaterally. EYES: Pupils equal round and reactive to light and accommodation. Conjunctivae without injection, sclerae without icterus. Extraocular movements intact. NOSE: Patent, turbinates without inflammation or discharge. No sinus tenderness. MOUTH: Mucous membranes dry. Pharynx without erythema or exudate. Uvula mid line. Airway patent. Tongue does not deviate. NECK: Supple without nuchal rigidity. No lymphadenopathy. No thyromegaly. Cervical spine is nontender. No JVD. HEART: Regular rate and rhythm LUNGS: Clear to auscultation bilaterally without wheezes, rales or rhonchi. No retractions or accessory muscle use. ABDOMEN: Positive bowel sounds x 4. Normal tympanic percussion. Soft, nontender, without masses or organomegaly. Bryson sign negative. No guarding or rebound tenderness. No CVA tenderness MUSCULOSKELETAL: No muscle atrophy, erythema, or edema noted. NEURO: Patient was alert and oriented to person place and time. Normal sensation to light and sharp touch. No focal neurological deficits. Course Administered Medications Discontinued Medications Sodium Chloride (Nss 1000ml) 1,000 mls @ 999 mls/hr IV .Q1H1M STEVE Stop: 02/17/19 01:15 Last Infusion: 02/17/19 02:04 Dose: 0 mls/hr Documented by: [id number] Admin: 02/17/19 00:43 Dose: 999 mls/hr Documented by: [id number] Sodium Chloride (Nss 1000ml) 1,000 mls @ 999 mls/hr IV .Q1H1M ONE Stop: 02/17/19 02:16 Last Infusion: 02/17/19 02:04 Dose: 0 mls/hr Documented by: [id number] Admin: 02/17/19 01:30 Dose: 999 mls/hr Documented by: [id number] Potassium Acetate 10 meq/ (Sodium Chloride) 105 mls @ 105 mls/hr IV Q1H ONE Stop: 02/17/19 02:15 Last Admin: 02/17/19 02:01 Dose: 105 mls/hr Documented by: [id number] Daptomycin 575 mg/ Syringe 11.5 mls @ 5.75 mls/min IV NOW ONE; Protocol Stop: 02/17/19 01:36 Last Admin: 02/17/19 02:13 Dose: 5.75 mls/min Documented by: [id number] Insulin Human Regular (Novolin R U-100 Per Unit) 10 units IV NOW STA Stop: 02/17/19 01:36 Last Admin: 02/17/19 02:13 Dose: 10 units Documented by: [id number] Cosigned by: [id number] Potassium Chloride (Klor-Con M10) 40 meq PO NOW STA Stop: 02/17/19 01:17 Last Admin: 02/17/19 01:30 Dose: 40 meq Documented by: [id number] Medical Decision Making Medical Records Attestation: I reviewed the patient's medical records. Home Medications Current Medication List: was personally reviewed by me Laboratory Data Attestation: I reviewed the patient's lab results. Result diagrams: 02/17/19 00:09 02/17/19 00:28 Lab Results 02/17/19 02/17/19 02/17/19 Range/Units 00:09 00:13 00:28 WBC 9.94 (4.8-10.8) K/uL RBC 4.89 (4.7-6.1) M/uL Hgb 14.2 (14.0-18.0) g/dL POC Hgb (14.0-18.0) g/dl Hct 39.9 L (42-52) % POC Hct (42-52) % MCV 81.6 (80-100) fL MCH 29.0 (25-34) pg MCHC 35.6 (32-36) g/dL RDW Std Deviation 38.5 (36.4-46.3) fL RDW Coeff of Soledad 13.0 (11.5-14.5) % Plt Count 249 (130-400) K/uL MPV 9.6 (7.4-10.4) fL Immature Gran % (Auto) 0.1 % Neut % (Auto) 76.7 % Lymph % (Auto) 16.2 % [place] % (Auto) 4.5 % Eos % (Auto) 2.2 % Baso % (Auto) 0.3 % Immature Gran # (Auto) 0.01 (0.00-0.02) K/uL Neut # (Auto) 7.62 H (1.4-6.5) K/uL Lymph # (Auto) 1.61 (1.2-3.4) K/uL [place] # (Auto) 0.45 (0.11-0.59) K/uL Eos # (Auto) 0.22 (0-0.5) K/uL Baso # (Auto) 0.03 (0-0.2) K/uL ABG pH (7.35-7.45) ABG pCO2 (35-46) mmHg ABG pO2 (80-95) mm/Hg ABG HCO3 (19-24) mmol/L ABG O2 Saturation (90-95) % ABG Base Excess (-9-1.8) mEq/L Ezequiel Test (Pos) Oxygen Given POC Sodium (135-144) mEq/L Sodium 125 L (136-145) mmol/L POC Potassium (3.3-5.0) mEq/L Potassium 2.9 L (3.5-5.1) mmol/L POC Chloride (101-112) mEq/L Chloride 75 L (98-107) mmol/L Carbon Dioxide 40 H (21-32) mmol/L POC Total CO2 (24-31) mEq/l Anion Gap 10.0 (3-11) POC Anion Gap (16-25) mmol/L POC BUN (7-18) mg/dl BUN 54 H (7-18) mg/dl Creatinine 2.93 H (0.6-1.4) mg/dl POC Creatinine (0.6-1.3) mg/dl Est Cr Clr Drug Dosing 70.2 ml/min Est GFR ( Amer) 28.0 Est GFR (Non-Af Amer) 24.2 BUN/Creatinine Ratio 18.5 (10-20) Glucose 435 H* (70-99) mg/dl POC Glucose 450 H* (70-99) POC Glucose (other) (70-99) mg/dl POC Lactic Acid Allen (0.90-1.70) mmol/L Calcium 9.4 (8.5-10.1) mg/dl POC Ioniz Calcium Criselda (1.12-1.32) mmol/l Magnesium 2.2 (1.8-2.4) mg/dl Total Bilirubin 0.5 (0.2-1) mg/dl AST 15 (15-37) U/L ALT 21 (12-78) U/L Alkaline Phosphatase 131 H (45-117) U/L Total Creatine Kinase 170 (39-308) U/L Troponin I < 0.015 (0-0.045) ng/ml Total Protein 9.2 H (6.4-8.2) gm/dl Albumin 3.8 (3.4-5.0) gm/dl Globulin 5.4 H (2.5-4.0) gm/dl Albumin/Globulin Ratio 0.7 L (0.9-2) Beta-Hydroxybutyric Acd 2.76 (0.2-2.81) mg/dl TSH 1.380 (0.300-4.500) uIu/ml 02/17/19 02/17/19 02/17/19 Range/Units 00:39 00:43 01:31 WBC (4.8-10.8) K/uL RBC (4.7-6.1) M/uL Hgb (14.0-18.0) g/dL POC Hgb 15.6 (14.0-18.0) g/dl Hct (42-52) % POC Hct 46 (42-52) % MCV (80-100) fL MCH (25-34) pg MCHC (32-36) g/dL RDW Std Deviation (36.4-46.3) fL RDW Coeff of Soledad (11.5-14.5) % Plt Count (130-400) K/uL MPV (7.4-10.4) fL Immature Gran % (Auto) % Neut % (Auto) % Lymph % (Auto) % [place] % (Auto) % Eos % (Auto) % Baso % (Auto) % Immature Gran # (Auto) (0.00-0.02) K/uL Neut # (Auto) (1.4-6.5) K/uL Lymph # (Auto) (1.2-3.4) K/uL [place] # (Auto) (0.11-0.59) K/uL Eos # (Auto) (0-0.5) K/uL Baso # (Auto) (0-0.2) K/uL ABG pH 7.45 (7.35-7.45) ABG pCO2 59 H (35-46) mmHg ABG pO2 78 L (80-95) mm/Hg ABG HCO3 40 H (19-24) mmol/L ABG O2 Saturation 95.3 H (90-95) % ABG Base Excess 13.9 H (-9-1.8) mEq/L Ezequiel Test Pos (Pos) Oxygen Given 2L POC Sodium 126 L (135-144) mEq/L Sodium (136-145) mmol/L POC Potassium 2.9 L (3.3-5.0) mEq/L Potassium (3.5-5.1) mmol/L POC Chloride 73 L (101-112) mEq/L Chloride (98-107) mmol/L Carbon Dioxide (21-32) mmol/L POC Total CO2 38 H (24-31) mEq/l Anion Gap (3-11) POC Anion Gap 18.0 (16-25) mmol/L POC BUN 52 H (7-18) mg/dl BUN (7-18) mg/dl Creatinine (0.6-1.4) mg/dl POC Creatinine 2.8 H (0.6-1.3) mg/dl Est Cr Clr Drug Dosing ml/min Est GFR ( Amer) Est GFR (Non-Af Amer) BUN/Creatinine Ratio (10-20) Glucose (70-99) mg/dl POC Glucose (70-99) POC Glucose (other) 436 H* (70-99) mg/dl POC Lactic Acid Allen 2.02 H (0.90-1.70) mmol/L Calcium (8.5-10.1) mg/dl POC Ioniz Calcium Criselda 1.05 L (1.12-1.32) mmol/l Magnesium (1.8-2.4) mg/dl Total Bilirubin (0.2-1) mg/dl AST (15-37) U/L ALT (12-78) U/L Alkaline Phosphatase (45-117) U/L Total Creatine Kinase (39-308) U/L Troponin I (0-0.045) ng/ml Total Protein (6.4-8.2) gm/dl Albumin (3.4-5.0) gm/dl Globulin (2.5-4.0) gm/dl Albumin/Globulin Ratio (0.9-2) Beta-Hydroxybutyric Acd (0.2-2.81) mg/dl TSH (0.300-4.500) uIu/ml Imaging Data Attestation: I personally reviewed and interpreted this imaging study as follows: MDM Narrative Prior records/ancillary studies reviewed and summarized above. Nursing notes reviewed. Additional history obtained from family. The patient's history was concerning for a and fatigue. Differential diagnosis: Etiologies such as metabolic, infection, hypo/hyperglycemia, electrolyte abnormalities, cardiac sources, intracerebral event, toxicologic, neurologic, as well as others were entertained. Physical examination: As above. ER treatment provided: IV Lock IV fluids, potassium and insulin On reassessment the patient felt better. Diagnostics interpretation by me: ECG: Normal sinus, normal intervals, left axis deviation, rate 78. Impression normal sinus rhythm with a left axis deviation interpreted myself I think arrhythmia is unlikely. EKG shows normal sinus rhythm with no interval abnormalities such as QT prolongation or WPW. There are no findings to suggest Brugada syndrome. Cardiac monitoring in the emergency department reveals no tachycardic or bradycardic dysrhythmia. Hypertrophic cardiomyopathy was considered but there are no clear historical elements pointing toward this. EKG is not suggestive. The QRS voltage is not extremely large and there are no suggestive Q waves. The labs revealed anion gap. Hypokalemia. This is replaced orally after the IV Hyperglycemia Imaging studies: Chest x-ray without acute consolidation, pneumothorax or free air per my interpretation Consultation: A consultation was placed with the hospitalist, Dr. Sullivan. The case was discussed and diagnostics were reviewed. The patient was evaluated in the ER for further treatment. Exam and history seem consistent with DKA. Medicine was consulted. Patient was given 2 L of IV fluids. He was given insulin. He was given potassium. Medicine will evaluate the patient. Patient is agreeable to treatment plan of admission. By the evaluation outlined above emergent etiologies such as electrolyte abnormalities, cardiac sources, intracerebral event, toxologic, neurologic, as well as others were deemed relatively unlikely. The pt informed about the findings as listed above. All questions were answered and pleased with the treatment. I have personally spent greater than 30 minutes of critical care time in the direct management of this patient. This includes bedside care, interpretation of diagnostic studies, and testing, discussion with consultants, patient, and family members, and other required patient management activities. This 30 minutes is in excess of all separately billable procedures. Case reviewed with my attending The chart was completed utilizing [employer] Speech voice recognition software. Grammatical errors, random word insertions, pronoun errors, and incomplete sentences are an occassional consequence of this system due to software limitations, ambient noise, and hardware issues. Any formal questions or concerns about the content, text, or information contained within the body of this dictation should be directly addressed to the physician assistant to the director for clarification. Impression & Plan DKA (diabetic ketoacidoses), Cellulitis of chest wall, Acute hypokalemia Discharge Plan Visit Data Chief Complaint: Hypotension Stated Complaint: LOW BP,LOW HEART RATE,DIZZY,SORE ED Provider: Satish Gill ED Midlevel Provider: Sharon Wallace Discharge Problem: DKA (diabetic ketoacidoses), Cellulitis of chest wall, Acute hypokalemia Patient Disposition: Admitted As Inpatient Condition: Fair Forms Stand Alone Forms: My [facility] Common Sensing Prescriptions Prescriptions: No Action tramadol 50 mg tablet 50 mg PO BID Qty: 60 RF: 0 pantoprazole 40 mg tablet,delayed release (DR/EC) 40 mg PO DAILY Qty: 90 RF: 3 glyburide 5 mg Tablet 10 mg PO DAILY RF: 0 aspirin 81 mg Tablet,Delayed Release (Dr/Ec) 81 mg PO DAILY RF: 0 metformin 500 mg Tablet Extended Release 24hr 1,000 mg PO BID RF: 0 Lantus Solostar U-100 Insulin 100 unit/mL (3 mL) Insulin Pen 60 unit SUBCUT DAILY RF: 0 carvedilol 3.125 mg tablet 6.25 mg PO BID RF: 0 bumetanide 2 mg tablet 4 mg PO DAILY RF: 0 metolazone 5 mg Tablet 5 mg PO DAILY PRN (Reason: Fluid Retention) RF: 0 Referrals Referrals: Idris Moreno III, MD [Primary Care Provider] - Discharge Problem: DKA (diabetic ketoacidoses) Qualifiers: Diabetes mellitus type: type 2 Diabetes mellitus complication detail: without coma Qualified Code(s): E11.10 - Type 2 diabetes mellitus with ketoacidosis without coma
[2019-02-17 00:49] LABS: Basophils # (auto) 0.03 K/uL (0-0.2); Basophils % (auto) 0.3 %; Eosinophils # (auto) 0.22 K/uL (0-0.5); Eosinophils % (auto) 2.2 %; Hematocrit (blood only) 39.9 % (42-52); Hemoglobin 14.2 g/dL (14.0-18.0); Immature Granulocytes # (auto) 0.01 K/uL (0.00-0.02); Immature Granulocytes % (auto) 0.1 %; Lymphocytes # (auto) 1.61 K/uL (1.2-3.4); Lymphocytes % (auto) 16.2 %; Mean Corpuscular Hgb Conc 35.6 g/dL (32-36); Mean Corpuscular Volume 81.6 fL (80-100); Mean Platelet Volume 9.6 fL (7.4-10.4); Monocytes # (auto) 0.45 K/uL (0.11-0.59); Monocytes % (auto) 4.5 %; Neutrophils # (auto) 7.62 K/uL (1.4-6.5); Neutrophils % (auto) 76.7 %; Platelet Count 249 K/uL (130-400); RDW Standard Deviation 38.5 fL (36.4-46.3); Red Blood Count 4.89 M/uL (4.7-6.1); White Blood Count 9.94 K/uL (4.8-10.8)
[2019-02-17 00:58] LABS: iSTAT Creatinine 2.8 mg/dl (0.6-1.3); iSTAT Hemoglobin 15.6 g/dl (14.0-18.0); iSTAT Ionized Calcium 1.05 mmol/l (1.12-1.32); iSTAT Potassium 2.9 mEq/L (3.3-5.0)
[2019-02-17 01:13] LABS: Alanine Aminotransferase 21 U/L (12-78); Albumin Level 3.8 gm/dl (3.4-5.0); Aspartate Aminotransferase 15 U/L (15-37); BUN Creatinine Ratio 18.5 (10-20); Blood Urea Nitrogen 54 mg/dl (7-18); Calcium 9.4 mg/dl (8.5-10.1); Carbon Dioxide 40 mmol/L (21-32); Chloride 75 mmol/L (98-107); Creatinine Clr Calc Pharmacy 70.2 ml/min; Est GFR (Non-African American) 24.2; Glucose 435 mg/dl (70-99); Magnesium 2.2 mg/dl (1.8-2.4); Potassium 2.9 mmol/L (3.5-5.1); Sodium 125 mmol/L (136-145)
[2019-02-17] MEDS ORDERED: SODIUM CHLORIDE 0.9% 1000ML 1,000 ML IV ONE (01:16)
[2019-02-17] MEDS ORDERED: POTASSIUM CHLORIDE 10 MEQ TABCR PO STA (01:16)
[2019-02-17] MEDS ORDERED: POTASSIUM ACETATE 10 MEQ in 0.9 % SODIUM CHLORIDE 100 ML IV ONE (01:16)
[2019-02-17 01:20] LABS: Albumin Globulin Ratio 0.7 (0.9-2); Alkaline Phosphatase 131 U/L (45-117); Bilirubin,Total 0.5 mg/dl (0.2-1); Creatine Kinase 170 U/L (39-308); Globulin 5.4 gm/dl (2.5-4.0); Total Protein 9.2 gm/dl (6.4-8.2); Troponin I < 0.015 ng/ml (0-0.045)
[2019-02-17 01:35] LABS: Beta-Hydroxybutyrate 2.76 mg/dl (0.2-2.81)
[2019-02-17] MEDS ORDERED: NovoLIN-R INSULIN PER UNIT CHARGE IV STA (01:35)
[2019-02-17] MEDS ORDERED: DAPTOmycin 575 MG in SYRINGE 0 ML IV ONE (01:35)
[2019-02-17 01:42] LABS: Base Excess ABG 13.9 mEq/L (-9-1.8); HCO3 ABG 40 mmol/L (19-24); Oxygen Saturation ABG 95.3 % (90-95); PCO2 ABG 59 mmHg (35-46); PO2 ABG 78 mm/Hg (80-95); pH ABG 7.45 (7.35-7.45)
[2019-02-17 01:43] LABS: Allen Test Pos (Pos)
--- NOTE | 2019-02-17 03:06 | History & Physical Report ---
Date of Service February 17, 2019 Assessment & Plan (1) Hyperglycemia due to type 2 diabetes mellitus: Glucose 435 upon entrance laboratories. ABG: pH 7.45, PCO2 59, PO2 78 and O2 saturation 95.3 on 2 L nasal cannula oxygen. Patient will be admitted to monitored bed with diagnosis of hyperglycemia and diabetes mellitus type 2. He is to get 10 units of regular insulin IV in the ED now. He is received 2 L of normal saline in ED, and will continue to rehydrate with normal saline. Potassium of 2.9 has been repleted with 40 milliequivalents Klor-Con. Patient's blood sugars have been out of control due to inability to afford his Lantus insulin, which he has decreased from 60 to 30 units subcu every morning. Resume Lantus 60 units subcu in the morning. Will receive IV regular insulin in the interim. Placed on Accu-Cheks with NovoLog scale. We will follow BMP, phosphorus and magnesium levels serially. Lack of good control of her blood sugars is also being triggered by recurrent skin infections, which are most likely MRSA. Hold glyburide 10 mg p.o. daily and metformin 1000 mg p.o. twice daily. Do not resume metformin until creatinine less than or equal to 1.4. Present on Admission?: Yes (2) Cellulitis of chest wall: Cellulitis of chest wall, and other areas, likely MRSA due to history- Placed on daptomycin I, due to acute kidney injury present we will avoid vancomycin for now. May require a surgical consult for area under right axilla. Placed in contact precautions. Present on Admission?: Yes (3) Acute kidney injury: Patient's creatinine has been slowly increasin.12 on 05/03/2018. 1.90 on 08/02/2018. 2.33 on 11/09/2018. And 2.93 on 02/17/2019 today. We will rehydrate with IV fluids as noted above. Follow serial BMP, phosphorus and magnesium levels. Potassium low at 2.9, and was given potassium chloride 40 mEq p.o. in the ED. Hold bumetanide and metolazone. Present on Admission?: Yes (4) Acute hypokalemia: See above Present on Admission?: Yes (5) Hx MRSA infection: As noted above Present on Admission?: Yes (6) GERD (gastroesophageal reflux disease): Continue pantoprazole 40 mg p.o. daily Present on Admission?: Yes (7) HLD (hyperlipidemia): No medications currently listed. Present on Admission?: Yes (8) HTN (hypertension): Continue carvedilol 6.25 mg p.o. twice daily with hold parameters. Hold metolazone and bumetanide. Present on Admission?: Yes (9) Morbid obesity with BMI of 45.0-49.9, adult: Counseling Present on Admission?: Yes History of Present Illness Chief Complaint: The patient presents to the emergency department with complaint of generalized fatigue, recurrent skin infections, with the worst on his right lateral chest wall area, and [id number] blood sugars, with this morning's over 400. Primary Care Provider: Idris Moreno MD The patient is a 48-year-old male with a past medical history including poorly controlled diabetes mellitus type 2, hypertension, morbid obesity, and recurrent MRSA skin infections, who presents to the emergency department with persistent fatigue, generalized weakness, decreased oral intake and blood sugar over 400 when tested this morning. He reports that he has decreased his morning Lantus from the 60 units prescribed, to 30 units every morning, due to his co-pay rising from $30 for 2 boxes to over $400 and not being able to afford his insulin. He has had persistent skin infections, that have been diagnosed as MRSA in the past, in particular has one under his right axilla that was initially painful, but is now hardened and less uncomfortable. Allergies Allergy/AdvReac Type Severity Reaction Status Date / Time No Known Allergies Allergy Verified 02/17/19 00:16 Home Medications Home Medications Medication Instructions Recorded Confirmed Type Lantus Solostar U-100 Insulin 60 unit SUBCUT DAILY 04/03/18 02/17/19 History aspirin 81 mg PO DAILY 04/03/18 02/17/19 History glyburide 10 mg PO DAILY 04/03/18 02/17/19 History metformin 1,000 mg PO BID 04/03/18 02/17/19 History carvedilol 3.125 mg tablet 6.25 mg PO BID tab 08/01/18 02/17/19 History tramadol 50 mg tablet 50 mg PO BID #60 tab 01/25/19 02/17/19 Rx pantoprazole 40 mg tablet,delayed 40 mg PO DAILY #90 tab 02/16/19 02/17/19 Rx release bumetanide 4 mg PO DAILY 02/17/19 02/17/19 History metolazone 5 mg PO DAILY PRN 02/17/19 02/17/19 History Past Med/Surg History Medical History Hx MRSA infection Diabetes (Chronic) Cellulitis of left elbow HTN (hypertension) HLD (hyperlipidemia) (Chronic) GERD (gastroesophageal reflux disease) Chronic back pain Diabetic gastroparesis (Chronic) Morbid obesity with BMI of 45.0-49.9, adult (Acute) Peripheral edema CHF (congestive heart failure) CKD (chronic kidney disease) Diabetic peripheral neuropathy Leg abscess Myocardial infarction Non-ischemic cardiomyopathy Restless leg syndrome Surgical History Hx of cardiac cath Hx of colonoscopy Hx of hand surgery Family History Other No significant family history Social History Preferred Language: Kinyarwanda Communication Ability: Effective Visual Impairment: No Limitations Sociology Instructor Required: No Beliefs That Will Affect Care: None Current Living Situation: Parent current occupational status: employed Feels Safe at Home: Yes Smoking Status: Never smoker Hx Alcohol Use: No Review of Systems Review of Systems: The patient denies chest pain, palpitations, shortness of breath, dyspnea on exertion, cough, lower extremity swelling, sore throat, fevers, chills, sweats, nausea, vomiting, diarrhea , constipation, abdominal pain, pelvic pain, blood in urine or stool, dysuria, urinary frequency or urgency, lightheadedness, dizziness, headache, memory loss, loss of consciousness, abnormal bruising or bleeding, imbalance, focal weakness, numbness or tingling in arms or legs, generalized arthralgias or myalgias, back or neck pain, or night sweats. The review of systems is otherwise negative other than for that already noted above, and at least 10 systems have been reviewed. Physical Exam Physical Exam: The patient is awake, alert and oriented 3, normocephalic and atraumatic, lying in bed and in no acute distress. HEENT--PERRL, EOMI, mucous membranes and oropharynx very dry. Neck--supple. No JVD. No bruits. Thyroid normal, trachea midline, no adenopathy. Heart--normal S1 and S2. No murmurs, rubs or gallops. Lungs--clear bilaterally, but diminished throughout. Abdomen--normal bowel sounds and soft. Nontender. Nondistended. Morbidly obese Extremities--no cyanosis or clubbing. No edema. Dermatologic--multiple areas of erythematous lesions some scabbed. Larger area approximately 3 x 4 cm in the right axilla there is hardened. Neurologic--cranial nerves II through XII grossly intact. Rheumatologic--normal range of motion. Psychiatric--normal affect. Results & Data Vital Signs (Past 12 Hours) Vital Signs Temp Pulse Pulse Resp BP BP Pulse Ox 02/17/19 02:06 78 14 128/70 96 02/17/19 00:43 77 20 110/59 L 95 02/17/19 00:36 93 02/17/19 00:17 75 76 20 123/78 91 02/16/19 23:51 97.9 F 77 22 103/68 97 Laboratory Results Laboratory Results WBC 9.94 K/uL (4.8-10.8) 02/17/19 00:09 RBC 4.89 M/uL (4.7-6.1) 02/17/19 00:09 Hgb 14.2 g/dL (14.0-18.0) 02/17/19 00:09 POC Hgb 15.6 g/dl (14.0-18.0) 02/17/19 00:43 Hct 39.9 % (42-52) L 02/17/19 00:09 POC Hct 46 % (42-52) 02/17/19 00:43 MCV 81.6 fL (80-100) 02/17/19 00:09 MCH 29.0 pg (25-34) 02/17/19 00:09 MCHC 35.6 g/dL (32-36) 02/17/19 00:09 RDW Std Deviation 38.5 fL (36.4-46.3) 02/17/19 00:09 RDW Coeff of Soledad 13.0 % (11.5-14.5) 02/17/19 00:09 Plt Count 249 K/uL (130-400) 02/17/19 00:09 MPV 9.6 fL (7.4-10.4) 02/17/19 00:09 Immature Gran % (Auto) 0.1 % 02/17/19 00:09 Neut % (Auto) 76.7 % 02/17/19 00:09 Lymph % (Auto) 16.2 % 02/17/19 00:09 Dauphin % (Auto) 4.5 % 02/17/19 00:09 Eos % (Auto) 2.2 % 02/17/19 00:09 Baso % (Auto) 0.3 % 02/17/19 00:09 Immature Gran # (Auto) 0.01 K/uL (0.00-0.02) 02/17/19 00:09 Neut # (Auto) 7.62 K/uL (1.4-6.5) H 02/17/19 00:09 Lymph # (Auto) 1.61 K/uL (1.2-3.4) 02/17/19 00:09 Dauphin # (Auto) 0.45 K/uL (0.11-0.59) 02/17/19 00:09 Eos # (Auto) 0.22 K/uL (0-0.5) 02/17/19 00:09 Baso # (Auto) 0.03 K/uL (0-0.2) 02/17/19 00:09 ABG pH 7.45 (7.35-7.45) 02/17/19 01:31 ABG pCO2 59 mmHg (35-46) H 02/17/19 01:31 ABG pO2 78 mm/Hg (80-95) L 02/17/19 01:31 ABG HCO3 40 mmol/L (19-24) H 02/17/19 01:31 ABG O2 Saturation 95.3 % (90-95) H 02/17/19 01:31 ABG Base Excess 13.9 mEq/L (-9-1.8) H 02/17/19 01:31 Ezequiel Test Pos (Pos) 02/17/19 01:31 Oxygen Given 2L 02/17/19 01:31 POC Sodium 126 mEq/L (135-144) L 02/17/19 00:43 Sodium 125 mmol/L (136-145) L 02/17/19 00:28 POC Potassium 2.9 mEq/L (3.3-5.0) L 02/17/19 00:43 Potassium 2.9 mmol/L (3.5-5.1) L 02/17/19 00:28 POC Chloride 73 mEq/L (101-112) L 02/17/19 00:43 Chloride 75 mmol/L (98-107) L 02/17/19 00:28 Carbon Dioxide 40 mmol/L (21-32) H 02/17/19 00:28 POC Total CO2 38 mEq/l (24-31) H 02/17/19 00:43 Anion Gap 10.0 (3-11) 02/17/19 00:28 POC Anion Gap 18.0 mmol/L (16-25) 02/17/19 00:43 POC BUN 52 mg/dl (7-18) H 02/17/19 00:43 BUN 54 mg/dl (7-18) H 02/17/19 00:28 Creatinine 2.93 mg/dl (0.6-1.4) H 02/17/19 00:28 POC Creatinine 2.8 mg/dl (0.6-1.3) H 02/17/19 00:43 Est Cr Clr Drug Dosing 70.2 ml/min 02/17/19 00:28 Est GFR ( Amer) 28.0 02/17/19 00:28 Est GFR (Non-Af Amer) 24.2 02/17/19 00:28 BUN/Creatinine Ratio 18.5 (10-20) 02/17/19 00:28 Glucose 435 mg/dl (70-99) H* 02/17/19 00:28 POC Glucose 450 (70-99) H* 02/17/19 00:13 POC Glucose (other) 436 mg/dl (70-99) H* 02/17/19 00:43 POC Lactic Acid Allen 2.02 mmol/L (0.90-1.70) H 02/17/19 00:39 Calcium 9.4 mg/dl (8.5-10.1) 02/17/19 00:28 POC Ioniz Calcium Criselda 1.05 mmol/l (1.12-1.32) L 02/17/19 00:43 Magnesium 2.2 mg/dl (1.8-2.4) 02/17/19 00:28 Total Bilirubin 0.5 mg/dl (0.2-1) 02/17/19 00:28 AST 15 U/L (15-37) 02/17/19 00:28 ALT 21 U/L (12-78) 02/17/19 00:28 Alkaline Phosphatase 131 U/L (45-117) H 02/17/19 00:28 Total Creatine Kinase 170 U/L (39-308) 02/17/19 00:28 Troponin I < 0.015 ng/ml (0-0.045) 02/17/19 00:28 Total Protein 9.2 gm/dl (6.4-8.2) H 02/17/19 00:28 Albumin 3.8 gm/dl (3.4-5.0) 02/17/19 00:28 Globulin 5.4 gm/dl (2.5-4.0) H 02/17/19 00:28 Albumin/Globulin Ratio 0.7 (0.9-2) L 02/17/19 00:28 Beta-Hydroxybutyric Acd 2.76 mg/dl (0.2-2.81) 02/17/19 00:28 TSH 1.380 uIu/ml (0.300-4.500) 02/17/19 00:28 Code Status & VTE Plan Code Status Full code VTE Prophylaxis Plan VTE Prophylaxis will be ordered: Yes PG Care Time/CCT Total # of Minutes Spent Total Time Spent with Patient: Total time spent is greater than 50% in coordination of care (as documented) at patient's floor/unit and/or counseling patient: (1) HLD (hyperlipidemia) Hyperlipidemia type: unspecified Qualified Code(s): E78.5 - Hyperlipidemia, unspecified (2) HTN (hypertension) Hypertension type: essential hypertension Qualified Code(s): I10 - Essential (primary) hypertension
[2019-02-17] MEDS ORDERED: ACETAMINOPHEN 325 MG TAB PO PRN (03:49)
[2019-02-17] MEDS ORDERED: DEXTROSE 50% 50 ML SYRINGE IV PRN (03:49)
[2019-02-17] MEDS ORDERED: MAGNESIUM HYDROXIDE SUSP 30 ML UDC PO PRN (03:49)
[2019-02-17] MEDS ORDERED: CARBOHYDRATES FOR HYPOGLYCEMIA PO PRN (03:49)
[2019-02-17] MEDS ORDERED: GLUCOSE 40% GEL 15 GM TUBE PO PRN (03:49)
[2019-02-17] MEDS ORDERED: ONDANSETRON INJ 2 MG/ML 2 ML VIAL IV PRN (03:49)
[2019-02-17] MEDS ORDERED: ALUMINUM/MAGNESIUM SUSP 30 ML UDC PO PRN (03:49)
[2019-02-17] MEDS ORDERED: POLYETHYLENE (MIRALAX) 17 GM PACK PO PRN (03:49)
[2019-02-17] MEDS ORDERED: GLUCOSE 10 TABS/TUBE PO PRN (03:49)
[2019-02-17] MEDS ORDERED: GLUCAGON FOR INJ 1 MG VIAL SQ PRN (03:49)
[2019-02-17] MEDS: SODIUM CHLORIDE 0.9% 1000ML 1,000 ML IV SCH ×4 (04:05→20:20)
[2019-02-17 04:28] LABS: INR 1.1 (0.9-1.1); Prothrombin Time 10.8 Seconds (9.0-12.0)
[2019-02-17 04:37] LABS: BUN Creatinine Ratio 20.1 (10-20); Calcium 8.7 mg/dl (8.5-10.1); Creatinine Clr Calc Pharmacy 46.7 ml/min; Est GFR (African American) 32.2; Est GFR (Non-African American) 27.8; Phosphorus 2.6 mg/dl (2.5-4.9); Potassium 3.2 mmol/L (3.5-5.1)
[2019-02-17] MEDS ORDERED: PNEUMOCOCCAL POLYSACCHARIDES 25 MCG/0.5 ML VIAL/SYR IM ONE (04:45)
[2019-02-17] MEDS ORDERED: PNEUMOCOCCAL ADMINISTRATION CHARGE ONE (04:45)
[2019-02-17] MEDS ORDERED: INSULIN ASPART 100 UNITS/ML 3 ML PEN SC STA (04:58)
[2019-02-17 05:02] LABS: Appearance Urine Cloudy (Clear); Bacteria Urine Automated Negative (Negative); Bilirubin Urine Negative (Negative); Blood Urine Negative (Negative); Color Urine Yellow; Epithelial Cell Urine Auto 20-30 /lpf (0-5); Glucose Urine UA 3+ (Negative); Ketones Urine Negative (Negative); Leukocyte Esterase Urine Negative (Negative); Nitrite Urine Negative (Negative); Protein Urine Trace (Negative); RBC Urine Automated 0-4 /hpf (0-4); Specific Gravity Urine 1.026 (1.000-1.030); Urobilinogen Urine Negative (Negative)
[2019-02-17 06:08] LABS: Estimated Average Glucose 341 mg/dl; Hemoglobin A1C 13.5 % (4.5-5.6)
--- NOTE | 2019-02-17 07:27 | XRay Report ---
XR chest 1V portable HISTORY: weakness COMPARISON: Chest 11/30/2014. FINDINGS: There are low lung volumes. The heart is enlarged. The left lung is clear. A few linear den sities at the right medial lung base. No pleural effusions. No pneumothorax. IMPRESSION: 1. Mild cardiomegaly. 2. Low lung volumes with a few linear densities at the right lung base. These are nonspecific but fav or subsegmental atelectasis. Electronically signed by: Sebastián Moon M.D. 02/17/2019 7:25 AM
[2019-02-17] MEDS: INSULIN ASPART 100 UNITS/ML 3 ML PEN SC SCH ×4 (07:42→20:23)
[2019-02-17] MEDS: INSULIN GLARGINE SOLOSTAR 100 UNITS/ML 3 ML PEN SQ SCH (07:43)
[2019-02-17] MEDS: HEPARIN SOD 5,000 UNIT/0.5 ML VIAL SQ SCH ×2 (07:43→20:21)
[2019-02-17] MEDS: ASPIRIN 81 MG ECTAB PO SCH (07:44)
[2019-02-17] MEDS: CARVEDILOL 6.25 MG TAB PO SCH ×2 (07:44→20:22)
[2019-02-17] MEDS: PANTOprazole 40 MG TAB PO SCH (07:44)
[2019-02-17] MEDS ORDERED: TRAMADOL HCL 50 MG TABLET ONE (07:47)
[2019-02-17] MEDS: TRAMADOL HCL 50 MG TABLET PO SCH ×2 (07:48→20:21)
[2019-02-17 08:27] LABS: BUN Creatinine Ratio 21.8 (10-20); Creatinine Clr Calc Pharmacy 51.6 ml/min; Est GFR (African American) 36.4; Est GFR (Non-African American) 31.4
[2019-02-17 08:28] LABS: Phosphorus 2.8 mg/dl (2.5-4.9)
[2019-02-17] MEDS ORDERED: POTASSIUM CHLORIDE 20 MEQ TABCR PO STA ×2 (09:18→16:36)
[2019-02-17] MEDS ORDERED: POTASSIUM CHLORIDE / WTR 10 MEQ/100 ML PLCT IV ONE ×2 (09:30→17:00)
[2019-02-17] MEDS ORDERED: PHARMACY GLYCEMIC MGMT CONSULT PRN (11:14)
--- NOTE | 2019-02-17 11:49 | Pharmacy Report ---
Glycemic Control Consultation - Date of Service February 17, 2019 - Scope Scope: Glycemic Pharmacist consulted by Dr Christina Glover on 02/17/19 for glycemic control and to write orders per [facility] inpatient glycemic control protocol - Objective Weight: 132.4 kg Accuchecks BSG (last 24hrs): 02/17/19 02/17/19 02/17/19 00:13 00:28 00:43 Glucose 435 H* POC Glucose 450 H* POC Glucose (other) 436 H* 02/17/19 02/17/19 02/17/19 02:39 03:55 04:09 Glucose 280 H POC Glucose 332 H* 294 H POC Glucose (other) 02/17/19 02/17/19 07:35 07:39 Glucose 241 H POC Glucose 245 H POC Glucose (other) Laboratory Data (last 24hrs): 02/17/19 02/17/19 02/17/19 00:28 04:09 07:35 Potassium 2.9 L 3.2 L 3.0 L Carbon Dioxide 40 H 40 H 39 H Anion Gap 10.0 6.0 6.0 Creatinine 2.93 H 2.61 H D 2.36 H Est Cr Clr Drug Dosing 70.2 46.7 51.6 Beta-Hydroxybutyric Acd 2.76 HbA1c: Hemoglobin A1c 13.5 % (4.5-5.6) H 02/17/19 04:09 - Recent Pertinent Medications Outpatient Anti-diabetic Regimen: * Lantus 60 units SQ Daily --> patient reports decreasing his dose to 30 units to save money * Glyburide 10mg PO daily * Metformin 1,000mg PO BIDM Risk Factors for Insulin Resistance: * Infection * Diet - Assessment & Plan Assessment & Plan: ASSESSMENT: * 48yo T2DM male with poorly controlled diabetes secondary to non-compliance (d/t cost) * Pt will need outpatient insulin regimen adjusted at discharge to a more affordable regimen * Pt admitted with severe hyperglycemia --> slowing resolving with SQ basal bolus insulin regimen * Will continue to titrate SQ basal bolus insulin regimen based on BSG trends to maintain BSGs <200 mg/dl. * Somewhat liberal glycemic control d/t severely elevated A1c --> Pt may feel symptoms of hypoglycemia at otherwise normal BSGs PLAN FOR INPATIENT GLYCEMIC CONTROL: * Hold outpatient oral diabetes medications * Basal insulin * Lantus 60 units SQ Q24hrs - dosing given in the morning * Bolus insulin * NovoLog per scale ACHS or Q6hrs while NPO * Goal Range: Low 110 mg/dL - High 150 mg/dL * Correction Factor: 10 mg/dL/unit * Nutritional / Prandial insulin per carb ratio of 1 unit per 4 grams CHO consumed Looking ahead to discharge: * A1c = 13.5% * Goal A1c likely 7% * Pt will need to discharge home on metformin + basal insulin + prandial insulin * Recommend NPH + Regular insulin --> could use the [employer] brand which is ~$25/vial * Specific dosing TBD based on inpatient trends * Please note that the plan above was derived based on current level of insulin resistance and hospital stress. These recommendations are appropriate for inpatient admission only. Plan of care upon discharge will need to be reassessed to avoid potential outpatient hypo/hyperglycemia. Thank you.
[2019-02-17 12:22] LABS: BUN Creatinine Ratio 23.3 (10-20); Calcium 8.9 mg/dl (8.5-10.1); Creatinine Clr Calc Pharmacy 58.3 ml/min; Est GFR (African American) 42.1; Est GFR (Non-African American) 36.3; Magnesium 2.3 mg/dl (1.8-2.4)
[2019-02-17 12:29] LABS: Phosphorus 2.2 mg/dl (2.5-4.9)
[2019-02-17 16:22] LABS: BUN Creatinine Ratio 22.9 (10-20); Calcium 8.9 mg/dl (8.5-10.1); Est GFR (African American) 43.6; Est GFR (Non-African American) 37.6; Phosphorus 1.9 mg/dl (2.5-4.9); Potassium 2.8 mmol/L (3.5-5.1)
[2019-02-17] MEDS ORDERED: VANCOMYCIN CONSULT ACTIVE PRN (16:36)
[2019-02-17] MEDS ORDERED: VANCOMYCIN HCL 2,500 MG in SODIUM CHLORIDE 0.9% 500 ML IV SCH (18:00)
--- NOTE | 2019-02-17 18:21 | Communication Note ---
Date of Service: February 17, 2019 Patient was seen and examined today by me Reviewed labs and imaging Ordered labs for a.m. Agree with my colleague/physician overnight on their exam and assessment and plan. Patient said that his blood sugar is uncontrolled due to unable to afford insulin. physician relations manager looked into the issue, he is unable to avoid insulin because he did not meet his deductible which is 1350, as soon as he meets his deductible insulin will be for free. He has only 655 remaining in his deductible, I gave him a choice between meeting his deductible and then enjoy 3 Lantus or I can order that attempt [id number] rely on brand from [employer]. But then he might end up by meeting his deductible anyway due to other sicknesses. Patient said he will think about it and he will let me know tomorrow. Ordered some labs for tomorrow.
[2019-02-17] MEDS: POTASSIUM CHLORIDE 20 MEQ TABCR PO SCH (20:21)
[2019-02-17 20:26] LABS: BUN Creatinine Ratio 20.9 (10-20); Creatinine Clr Calc Pharmacy 60.6 ml/min; Est GFR (African American) 44.2; Est GFR (Non-African American) 38.1; Potassium 3.1 mmol/L (3.5-5.1)
[2019-02-17 20:27] LABS: Phosphorus 1.7 mg/dl (2.5-4.9)
[2019-02-17] MEDS ORDERED: POTASSIUM PHOS 3 MMOL/1 ML INFUSION IV STA (21:08)
[2019-02-17] MEDS ORDERED: POTASSIUM PHOSPHATE 21 MMOL in SODIUM CHLORIDE 0.9% 500 ML IV ONE (21:30)
--- NOTE | 2019-02-17 23:48 | Surgery Consultation ---
Date of Consultation February 17, 2019 Assessment & Plan (1) Cellulitis of chest wall: This patient has a small abscess. We will plan for I&D tomorrow. Elevated blood sugars and other medical problems as per medical team. Present on Admission?: Yes History of Present Illness Reason for Consultation: Abscess on the lateral chest wall below the axilla on the right Requesting Physician: Jalyn Glover MD Attending Physician: Jalyn Glover MD History of Present Illness I have been asked by Dr. Christina Glover to see this patient for evaluation of a possible abscess on the right side of his chest wall just below the axilla. He was admitted with fatigue and markedly elevated blood sugar. He has an extensive past medical history. The patient has a history of skin lesions that have been dealt with over the past. Some of it has been MRSA. This lesion is not sure how long was present. It does not cause any pain. It is been increasing in size slowly. It has not drained. The skin around it has been discolored but not fiery red. He has no fever or chills. Allergies Allergy/AdvReac Type Severity Reaction Status Date / Time No Known Allergies Allergy Verified 02/17/19 00:16 Home Medications Home Medications Medication Instructions Recorded Confirmed Type Lantus Solostar U-100 Insulin 60 unit SUBCUT DAILY 04/03/18 02/17/19 History aspirin 81 mg PO DAILY 04/03/18 02/17/19 History glyburide 10 mg PO DAILY 04/03/18 02/17/19 History metformin 1,000 mg PO BID 04/03/18 02/17/19 History carvedilol 3.125 mg tablet 6.25 mg PO BID tab 08/01/18 02/17/19 History tramadol 50 mg tablet 50 mg PO BID #60 tab 01/25/19 02/17/19 Rx pantoprazole 40 mg tablet,delayed 40 mg PO DAILY #90 tab 02/16/19 02/17/19 Rx release bumetanide 4 mg PO DAILY 02/17/19 02/17/19 History metolazone 5 mg PO DAILY PRN 02/17/19 02/17/19 History Patient History Medical History Hx MRSA infection Diabetes (Chronic) Cellulitis of left elbow HTN (hypertension) HLD (hyperlipidemia) (Chronic) GERD (gastroesophageal reflux disease) Chronic back pain Diabetic gastroparesis (Chronic) Morbid obesity with BMI of 45.0-49.9, adult (Acute) Peripheral edema CHF (congestive heart failure) CKD (chronic kidney disease) Diabetic peripheral neuropathy Leg abscess Myocardial infarction Non-ischemic cardiomyopathy Restless leg syndrome Surgical History Hx of cardiac cath Hx of colonoscopy Hx of hand surgery Family History Other No significant family history Social History Preferred Language: Tuval[place] Communication Ability: Effective Visual Impairment: No Limitations [employer] Required: No Beliefs That Will Affect Care: None Current Living Situation: Parent current occupational status: employed Feels Safe at Home: Yes Smoking Status: Never smoker Hx Alcohol Use: No Hx Substance Use: No Physical Exam Constitutional: no acute distress Neck: trachea midline Respiratory: normal respiratory effort, lungs clear to auscultation He has multiple scars from previous skin lesions. He has a 5 x 4 cm slightly raised area that is discolored but is not bright red on the right lateral chest wall below the axilla. It is fluctuant. There does appear to be some purulent material below the skin. Cardiovascular: Rate/Rhythm: regular rate and regular rhythm Gastrointestinal (Abdomen): Inspection/Auscultation: abdomen normal to inspection Percussion/Palpation: abdomen soft; abdomen nontender Skin: Multiple skin scars. There are very few lesions present at the present time. Lymphatic: no cervical lymphadenopathy Results & Data Vital Signs (Past 12 Hours) Vital Signs Temp Pulse Pulse Resp BP BP Pulse Ox 02/17/19 23:41 83 02/17/19 23:00 37.2 C 93 H 17 110/72 91 02/17/19 19:34 36.8 C 86 18 150/75 H 93 02/17/19 17:39 75 02/17/19 15:38 36.7 C 75 18 112/64 94 02/17/19 11:48 36.8 C 72 18 98/56 L 97 Laboratory Results 02/17/19 02/17/19 02/17/19 Range/Units 23:35 20:20 19:40 WBC (4.8-10.8) K/uL RBC (4.7-6.1) M/uL Hgb (14.0-18.0) g/dL POC Hgb (14.0-18.0) g/dl Hct (42-52) % POC Hct (42-52) % MCV (80-100) fL MCH (25-34) pg MCHC (32-36) g/dL RDW Std Deviation (36.4-46.3) fL RDW Coeff of Soledad (11.5-14.5) % Plt Count (130-400) K/uL MPV (7.4-10.4) fL Immature Gran % (Auto) % Neut % (Auto) % Lymph % (Auto) % Burnett % (Auto) % Eos % (Auto) % Baso % (Auto) % Immature Gran # (Auto) (0.00-0.02) K/uL Neut # (Auto) (1.4-6.5) K/uL Lymph # (Auto) (1.2-3.4) K/uL Burnett # (Auto) (0.11-0.59) K/uL Eos # (Auto) (0-0.5) K/uL Baso # (Auto) (0-0.2) K/uL PT (9.0-12.0) Seconds INR (0.9-1.1) ABG pH (7.35-7.45) ABG pCO2 (35-46) mmHg ABG pO2 (80-95) mm/Hg ABG HCO3 (19-24) mmol/L ABG O2 Saturation (90-95) % ABG Base Excess (-9-1.8) mEq/L Ezequiel Test (Pos) Oxygen Given POC Sodium (135-144) mEq/L Sodium Pending 133 L (136-145) mmol/L POC Potassium (3.3-5.0) mEq/L Potassium Pending 3.1 L (3.5-5.1) mmol/L POC Chloride (101-112) mEq/L Chloride Pending 90 L (98-107) mmol/L Carbon Dioxide Pending 36 H (21-32) mmol/L POC Total CO2 (24-31) mEq/l Anion Gap Pending 7.0 (3-11) POC Anion Gap (16-25) mmol/L POC BUN (7-18) mg/dl BUN Pending 42 H (7-18) mg/dl Creatinine Pending 2.01 H (0.6-1.4) mg/dl POC Creatinine (0.6-1.3) mg/dl Est Cr Clr Drug Dosing Pending 60.6 ml/min Est GFR ( Amer) Pending 44.2 Est GFR (Non-Af Amer) Pending 38.1 BUN/Creatinine Ratio Pending 20.9 H (10-20) Glucose Pending 176 H (70-99) mg/dl POC Glucose 171 H (70-99) POC Glucose (other) (70-99) mg/dl Estimat Average Glucose mg/dl Hemoglobin A1c (4.5-5.6) % POC Lactic Acid Allen (0.90-1.70) mmol/L Calcium Pending 9.0 (8.5-10.1) mg/dl POC Ioniz Calcium Criselda (1.12-1.32) mmol/l Phosphorus Pending 1.7 L (2.5-4.9) mg/dl Magnesium (1.8-2.4) mg/dl Total Bilirubin (0.2-1) mg/dl AST (15-37) U/L ALT (12-78) U/L Alkaline Phosphatase (45-117) U/L Total Creatine Kinase (39-308) U/L Troponin I (0-0.045) ng/ml Total Protein (6.4-8.2) gm/dl Albumin (3.4-5.0) gm/dl Globulin (2.5-4.0) gm/dl Albumin/Globulin Ratio (0.9-2) Beta-Hydroxybutyric Acd (0.2-2.81) mg/dl TSH (0.300-4.500) uIu/ml Urine Color Urine Appearance (Clear) Urine pH (4.5-7.5) Ur Specific [place] (1.000-1.030) Urine Protein (Negative) Urine Glucose (UA) (Negative) Urine Ketones (Negative) Urine Blood (Negative) Urine Nitrite (Negative) Urine Bilirubin (Negative) Urine Urobilinogen (Negative) Ur Leukocyte Esterase (Negative) Urine WBC (Auto) (0-5) /hpf Urine RBC (Auto) (0-4) /hpf U Hyaline Cast (Auto) (0-5) /lpf U Epithel Cells (Auto) (0-5) /lpf Urine Bacteria (Auto) (Negative) 02/17/19 02/17/19 02/17/19 Range/Units 16:29 15:38 11:44 WBC (4.8-10.8) K/uL RBC (4.7-6.1) M/uL Hgb (14.0-18.0) g/dL POC Hgb (14.0-18.0) g/dl Hct (42-52) % POC Hct (42-52) % MCV (80-100) fL MCH (25-34) pg MCHC (32-36) g/dL RDW Std Deviation (36.4-46.3) fL RDW Coeff of Soledad (11.5-14.5) % Plt Count (130-400) K/uL MPV (7.4-10.4) fL Immature Gran % (Auto) % Neut % (Auto) % Lymph % (Auto) % Burnett % (Auto) % Eos % (Auto) % Baso % (Auto) % Immature Gran # (Auto) (0.00-0.02) K/uL Neut # (Auto) (1.4-6.5) K/uL Lymph # (Auto) (1.2-3.4) K/uL Burnett # (Auto) (0.11-0.59) K/uL Eos # (Auto) (0-0.5) K/uL Baso # (Auto) (0-0.2) K/uL PT (9.0-12.0) Seconds INR (0.9-1.1) ABG pH (7.35-7.45) ABG pCO2 (35-46) mmHg ABG pO2 (80-95) mm/Hg ABG HCO3 (19-24) mmol/L ABG O2 Saturation (90-95) % ABG Base Excess (-9-1.8) mEq/L Ezequiel Test (Pos) Oxygen Given POC Sodium (135-144) mEq/L Sodium 134 L 131 L (136-145) mmol/L POC Potassium (3.3-5.0) mEq/L Potassium 2.8 L 3.0 L (3.5-5.1) mmol/L POC Chloride (101-112) mEq/L Chloride 90 L 87 L (98-107) mmol/L Carbon Dioxide 39 H 39 H (21-32) mmol/L POC Total CO2 (24-31) mEq/l Anion Gap 5.0 6.0 (3-11) POC Anion Gap (16-25) mmol/L POC BUN (7-18) mg/dl BUN 47 H 49 H (7-18) mg/dl Creatinine 2.03 H 2.09 H (0.6-1.4) mg/dl POC Creatinine (0.6-1.3) mg/dl Est Cr Clr Drug Dosing 60.0 58.3 ml/min Est GFR ( Amer) 43.6 42.1 Est GFR (Non-Af Amer) 37.6 36.3 BUN/Creatinine Ratio 22.9 H 23.3 H (10-20) Glucose 108 H 197 H (70-99) mg/dl POC Glucose 103 H (70-99) POC Glucose (other) (70-99) mg/dl Estimat Average Glucose mg/dl Hemoglobin A1c (4.5-5.6) % POC Lactic Acid Allen (0.90-1.70) mmol/L Calcium 8.9 8.9 (8.5-10.1) mg/dl POC Ioniz Calcium Criselda (1.12-1.32) mmol/l Phosphorus 1.9 L 2.2 L (2.5-4.9) mg/dl Magnesium 2.3 (1.8-2.4) mg/dl Total Bilirubin (0.2-1) mg/dl AST (15-37) U/L ALT (12-78) U/L Alkaline Phosphatase (45-117) U/L Total Creatine Kinase (39-308) U/L Troponin I (0-0.045) ng/ml Total Protein (6.4-8.2) gm/dl Albumin (3.4-5.0) gm/dl Globulin (2.5-4.0) gm/dl Albumin/Globulin Ratio (0.9-2) Beta-Hydroxybutyric Acd (0.2-2.81) mg/dl TSH (0.300-4.500) uIu/ml Urine Color Urine Appearance (Clear) Urine pH (4.5-7.5) Ur Specific [place] (1.000-1.030) Urine Protein (Negative) Urine Glucose (UA) (Negative) Urine Ketones (Negative) Urine Blood (Negative) Urine Nitrite (Negative) Urine Bilirubin (Negative) Urine Urobilinogen (Negative) Ur Leukocyte Esterase (Negative) Urine WBC (Auto) (0-5) /hpf Urine RBC (Auto) (0-4) /hpf U Hyaline Cast (Auto) (0-5) /lpf U Epithel Cells (Auto) (0-5) /lpf Urine Bacteria (Auto) (Negative) 02/17/19 02/17/19 02/17/19 Range/Units 11:31 07:39 07:35 WBC (4.8-10.8) K/uL RBC (4.7-6.1) M/uL Hgb (14.0-18.0) g/dL POC Hgb (14.0-18.0) g/dl Hct (42-52) % POC Hct (42-52) % MCV (80-100) fL MCH (25-34) pg MCHC (32-36) g/dL RDW Std Deviation (36.4-46.3) fL RDW Coeff of Soledad (11.5-14.5) % Plt Count (130-400) K/uL MPV (7.4-10.4) fL Immature Gran % (Auto) % Neut % (Auto) % Lymph % (Auto) % [place]ett % (Auto) % Eos % (Auto) % Baso % (Auto) % Immature Gran # (Auto) (0.00-0.02) K/uL Neut # (Auto) (1.4-6.5) K/uL Lymph # (Auto) (1.2-3.4) K/uL Burnett # (Auto) (0.11-0.59) K/uL Eos # (Auto) (0-0.5) K/uL Baso # (Auto) (0-0.2) K/uL PT (9.0-12.0) Seconds INR (0.9-1.1) ABG pH (7.35-7.45) ABG pCO2 (35-46) mmHg ABG pO2 (80-95) mm/Hg ABG HCO3 (19-24) mmol/L ABG O2 Saturation (90-95) % ABG Base Excess (-9-1.8) mEq/L Ezequiel Test (Pos) Oxygen Given POC Sodium (135-144) mEq/L Sodium 130 L (136-145) mmol/L POC Potassium (3.3-5.0) mEq/L Potassium 3.0 L (3.5-5.1) mmol/L POC Chloride (101-112) mEq/L Chloride 85 L (98-107) mmol/L Carbon Dioxide 39 H (21-32) mmol/L POC Total CO2 (24-31) mEq/l Anion Gap 6.0 (3-11) POC Anion Gap (16-25) mmol/L POC BUN (7-18) mg/dl BUN 52 H (7-18) mg/dl Creatinine 2.36 H (0.6-1.4) mg/dl POC Creatinine (0.6-1.3) mg/dl Est Cr Clr Drug Dosing 51.6 ml/min Est GFR ( Amer) 36.4 Est GFR (Non-Af Amer) 31.4 BUN/Creatinine Ratio 21.8 H (10-20) Glucose 241 H (70-99) mg/dl POC Glucose 209 H 245 H (70-99) POC Glucose (other) (70-99) mg/dl Estimat Average Glucose mg/dl Hemoglobin A1c (4.5-5.6) % POC Lactic Acid Allen (0.90-1.70) mmol/L Calcium 9.0 (8.5-10.1) mg/dl POC Ioniz Calcium Criselda (1.12-1.32) mmol/l Phosphorus 2.8 (2.5-4.9) mg/dl Magnesium (1.8-2.4) mg/dl Total Bilirubin (0.2-1) mg/dl AST (15-37) U/L ALT (12-78) U/L Alkaline Phosphatase (45-117) U/L Total Creatine Kinase (39-308) U/L Troponin I (0-0.045) ng/ml Total Protein (6.4-8.2) gm/dl Albumin (3.4-5.0) gm/dl Globulin (2.5-4.0) gm/dl Albumin/Globulin Ratio (0.9-2) Beta-Hydroxybutyric Acd (0.2-2.81) mg/dl TSH (0.300-4.500) uIu/ml Urine Color Urine Appearance (Clear) Urine pH (4.5-7.5) Ur Specific [place] (1.000-1.030) Urine Protein (Negative) Urine Glucose (UA) (Negative) Urine Ketones (Negative) Urine Blood (Negative) Urine Nitrite (Negative) Urine Bilirubin (Negative) Urine Urobilinogen (Negative) Ur Leukocyte Esterase (Negative) Urine WBC (Auto) (0-5) /hpf Urine RBC (Auto) (0-4) /hpf U Hyaline Cast (Auto) (0-5) /lpf U Epithel Cells (Auto) (0-5) /lpf Urine Bacteria (Auto) (Negative) 02/17/19 02/17/19 02/17/19 Range/Units 04:50 04:09 04:09 WBC (4.8-10.8) K/uL RBC (4.7-6.1) M/uL Hgb (14.0-18.0) g/dL POC Hgb (14.0-18.0) g/dl Hct (42-52) % POC Hct (42-52) % MCV (80-100) fL MCH (25-34) pg MCHC (32-36) g/dL RDW Std Deviation (36.4-46.3) fL RDW Coeff of Soledad (11.5-14.5) % Plt Count (130-400) K/uL MPV (7.4-10.4) fL Immature Gran % (Auto) % Neut % (Auto) % Lymph % (Auto) % [place] % (Auto) % Eos % (Auto) % Baso % (Auto) % Immature Gran # (Auto) (0.00-0.02) K/uL Neut # (Auto) (1.4-6.5) K/uL Lymph # (Auto) (1.2-3.4) K/uL [place] # (Auto) (0.11-0.59) K/uL Eos # (Auto) (0-0.5) K/uL Baso # (Auto) (0-0.2) K/uL PT 10.8 (9.0-12.0) Seconds INR 1.1 (0.9-1.1) ABG pH (7.35-7.45) ABG pCO2 (35-46) mmHg ABG pO2 (80-95) mm/Hg ABG HCO3 (19-24) mmol/L ABG O2 Saturation (90-95) % ABG Base Excess (-9-1.8) mEq/L Ezequiel Test (Pos) Oxygen Given POC Sodium (135-144) mEq/L Sodium (136-145) mmol/L POC Potassium (3.3-5.0) mEq/L Potassium (3.5-5.1) mmol/L POC Chloride (101-112) mEq/L Chloride (98-107) mmol/L Carbon Dioxide (21-32) mmol/L POC Total CO2 (24-31) mEq/l Anion Gap (3-11) POC Anion Gap (16-25) mmol/L POC BUN (7-18) mg/dl BUN (7-18) mg/dl Creatinine (0.6-1.4) mg/dl POC Creatinine (0.6-1.3) mg/dl Est Cr Clr Drug Dosing ml/min Est GFR ( Amer) Est GFR (Non-Af Amer) BUN/Creatinine Ratio (10-20) Glucose (70-99) mg/dl POC Glucose (70-99) POC Glucose (other) (70-99) mg/dl Estimat Average Glucose 341 mg/dl Hemoglobin A1c 13.5 H (4.5-5.6) % POC Lactic Acid Allen (0.90-1.70) mmol/L Calcium (8.5-10.1) mg/dl POC Ioniz Calcium Criselda (1.12-1.32) mmol/l Phosphorus (2.5-4.9) mg/dl Magnesium (1.8-2.4) mg/dl Total Bilirubin (0.2-1) mg/dl AST (15-37) U/L ALT (12-78) U/L Alkaline Phosphatase (45-117) U/L Total Creatine Kinase (39-308) U/L Troponin I (0-0.045) ng/ml Total Protein (6.4-8.2) gm/dl Albumin (3.4-5.0) gm/dl Globulin (2.5-4.0) gm/dl Albumin/Globulin Ratio (0.9-2) Beta-Hydroxybutyric Acd (0.2-2.81) mg/dl TSH (0.300-4.500) uIu/ml Urine Color Yellow Urine Appearance Cloudy A (Clear) Urine pH 5.0 (4.5-7.5) Ur Specific [place] 1.026 (1.000-1.030) Urine Protein Trace H (Negative) Urine Glucose (UA) 3+ H (Negative) Urine Ketones Negative (Negative) Urine Blood Negative (Negative) Urine Nitrite Negative (Negative) Urine Bilirubin Negative (Negative) Urine Urobilinogen Negative (Negative) Ur Leukocyte Esterase Negative (Negative) Urine WBC (Auto) 1-5 (0-5) /hpf Urine RBC (Auto) 0-4 (0-4) /hpf U Hyaline Cast (Auto) 1-5 (0-5) /lpf U Epithel Cells (Auto) 20-30 H (0-5) /lpf Urine Bacteria (Auto) Negative (Negative) 02/17/19 02/17/19 02/17/19 Range/Units 04:09 03:55 02:39 WBC (4.8-10.8) K/uL RBC (4.7-6.1) M/uL Hgb (14.0-18.0) g/dL POC Hgb (14.0-18.0) g/dl Hct (42-52) % POC Hct (42-52) % MCV (80-100) fL MCH (25-34) pg MCHC (32-36) g/dL RDW Std Deviation (36.4-46.3) fL RDW Coeff of Soledad (11.5-14.5) % Plt Count (130-400) K/uL MPV (7.4-10.4) fL Immature Gran % (Auto) % Neut % (Auto) % Lymph % (Auto) % [place] % (Auto) % Eos % (Auto) % Baso % (Auto) % Immature Gran # (Auto) (0.00-0.02) K/uL Neut # (Auto) (1.4-6.5) K/uL Lymph # (Auto) (1.2-3.4) K/uL [place] # (Auto) (0.11-0.59) K/uL Eos # (Auto) (0-0.5) K/uL Baso # (Auto) (0-0.2) K/uL PT (9.0-12.0) Seconds INR (0.9-1.1) ABG pH (7.35-7.45) ABG pCO2 (35-46) mmHg ABG pO2 (80-95) mm/Hg ABG HCO3 (19-24) mmol/L ABG O2 Saturation (90-95) % ABG Base Excess (-9-1.8) mEq/L Ezequiel Test (Pos) Oxygen Given POC Sodium (135-144) mEq/L Sodium 129 L (136-145) mmol/L POC Potassium (3.3-5.0) mEq/L Potassium 3.2 L (3.5-5.1) mmol/L POC Chloride (101-112) mEq/L Chloride 83 L (98-107) mmol/L Carbon Dioxide 40 H (21-32) mmol/L POC Total CO2 (24-31) mEq/l Anion Gap 6.0 (3-11) POC Anion Gap (16-25) mmol/L POC BUN (7-18) mg/dl BUN 52 H (7-18) mg/dl Creatinine 2.61 H D (0.6-1.4) mg/dl POC Creatinine (0.6-1.3) mg/dl Est Cr Clr Drug Dosing 46.7 ml/min Est GFR ( Amer) 32.2 Est GFR (Non-Af Amer) 27.8 BUN/Creatinine Ratio 20.1 H (10-20) Glucose 280 H (70-99) mg/dl POC Glucose 294 H 332 H* (70-99) POC Glucose (other) (70-99) mg/dl Estimat Average Glucose mg/dl Hemoglobin A1c (4.5-5.6) % POC Lactic Acid Allen (0.90-1.70) mmol/L Calcium 8.7 (8.5-10.1) mg/dl POC Ioniz Calcium [place] (1.12-1.32) mmol/l Phosphorus 2.6 (2.5-4.9) mg/dl Magnesium (1.8-2.4) mg/dl Total Bilirubin (0.2-1) mg/dl AST (15-37) U/L ALT (12-78) U/L Alkaline Phosphatase (45-117) U/L Total Creatine Kinase (39-308) U/L Troponin I (0-0.045) ng/ml Total Protein (6.4-8.2) gm/dl Albumin (3.4-5.0) gm/dl Globulin (2.5-4.0) gm/dl Albumin/Globulin Ratio (0.9-2) Beta-Hydroxybutyric Acd (0.2-2.81) mg/dl TSH (0.300-4.500) uIu/ml Urine Color Urine Appearance (Clear) Urine pH (4.5-7.5) Ur Specific [place] (1.000-1.030) Urine Protein (Negative) Urine Glucose (UA) (Negative) Urine Ketones (Negative) Urine Blood (Negative) Urine Nitrite (Negative) Urine Bilirubin (Negative) Urine Urobilinogen (Negative) Ur Leukocyte Esterase (Negative) Urine WBC (Auto) (0-5) /hpf Urine RBC (Auto) (0-4) /hpf U Hyaline Cast (Auto) (0-5) /lpf U Epithel Cells (Auto) (0-5) /lpf Urine Bacteria (Auto) (Negative) 02/17/19 02/17/19 02/17/19 Range/Units 01:31 00:43 00:39 WBC (4.8-10.8) K/uL RBC (4.7-6.1) M/uL Hgb (14.0-18.0) g/dL POC Hgb 15.6 (14.0-18.0) g/dl Hct (42-52) % POC Hct 46 (42-52) % MCV (80-100) fL MCH (25-34) pg MCHC (32-36) g/dL RDW Std Deviation (36.4-46.3) fL RDW Coeff of Soledad (11.5-14.5) % Plt Count (130-400) K/uL MPV (7.4-10.4) fL Immature Gran % (Auto) % Neut % (Auto) % Lymph % (Auto) % [place] % (Auto) % Eos % (Auto) % Baso % (Auto) % Immature Gran # (Auto) (0.00-0.02) K/uL Neut # (Auto) (1.4-6.5) K/uL Lymph # (Auto) (1.2-3.4) K/uL [place] # (Auto) (0.11-0.59) K/uL Eos # (Auto) (0-0.5) K/uL Baso # (Auto) (0-0.2) K/uL PT (9.0-12.0) Seconds INR (0.9-1.1) ABG pH 7.45 (7.35-7.45) ABG pCO2 59 H (35-46) mmHg ABG pO2 78 L (80-95) mm/Hg ABG HCO3 40 H (19-24) mmol/L ABG O2 Saturation 95.3 H (90-95) % ABG Base Excess 13.9 H (-9-1.8) mEq/L Ezequiel Test Pos (Pos) Oxygen Given 2L POC Sodium 126 L (135-144) mEq/L Sodium (136-145) mmol/L POC Potassium 2.9 L (3.3-5.0) mEq/L Potassium (3.5-5.1) mmol/L POC Chloride 73 L (101-112) mEq/L Chloride (98-107) mmol/L Carbon Dioxide (21-32) mmol/L POC Total CO2 38 H (24-31) mEq/l Anion Gap (3-11) POC Anion Gap 18.0 (16-25) mmol/L POC BUN 52 H (7-18) mg/dl BUN (7-18) mg/dl Creatinine (0.6-1.4) mg/dl POC Creatinine 2.8 H (0.6-1.3) mg/dl Est Cr Clr Drug Dosing ml/min Est GFR ( Amer) Est GFR (Non-Af Amer) BUN/Creatinine Ratio (10-20) Glucose (70-99) mg/dl POC Glucose (70-99) POC Glucose (other) 436 H* (70-99) mg/dl Estimat Average Glucose mg/dl Hemoglobin A1c (4.5-5.6) % POC Lactic Acid Allen 2.02 H (0.90-1.70) mmol/L Calcium (8.5-10.1) mg/dl POC Ioniz Calcium [place] 1.05 L (1.12-1.32) mmol/l Phosphorus (2.5-4.9) mg/dl Magnesium (1.8-2.4) mg/dl Total Bilirubin (0.2-1) mg/dl AST (15-37) U/L ALT (12-78) U/L Alkaline Phosphatase (45-117) U/L Total Creatine Kinase (39-308) U/L Troponin I (0-0.045) ng/ml Total Protein (6.4-8.2) gm/dl Albumin (3.4-5.0) gm/dl Globulin (2.5-4.0) gm/dl Albumin/Globulin Ratio (0.9-2) Beta-Hydroxybutyric Acd (0.2-2.81) mg/dl TSH (0.300-4.500) uIu/ml Urine Color Urine Appearance (Clear) Urine pH (4.5-7.5) Ur Specific [place] (1.000-1.030) Urine Protein (Negative) Urine Glucose (UA) (Negative) Urine Ketones (Negative) Urine Blood (Negative) Urine Nitrite (Negative) Urine Bilirubin (Negative) Urine Urobilinogen (Negative) Ur Leukocyte Esterase (Negative) Urine WBC (Auto) (0-5) /hpf Urine RBC (Auto) (0-4) /hpf U Hyaline Cast (Auto) (0-5) /lpf U Epithel Cells (Auto) (0-5) /lpf Urine Bacteria (Auto) (Negative) 02/17/19 02/17/19 02/17/19 Range/Units 00:28 00:13 00:09 WBC 9.94 (4.8-10.8) K/uL RBC 4.89 (4.7-6.1) M/uL Hgb 14.2 (14.0-18.0) g/dL POC Hgb (14.0-18.0) g/dl Hct 39.9 L (42-52) % POC Hct (42-52) % MCV 81.6 (80-100) fL MCH 29.0 (25-34) pg MCHC 35.6 (32-36) g/dL RDW Std Deviation 38.5 (36.4-46.3) fL RDW Coeff of [place] 13.0 (11.5-14.5) % Plt Count 249 (130-400) K/uL MPV 9.6 (7.4-10.4) fL Immature Gran % (Auto) 0.1 % Neut % (Auto) 76.7 % Lymph % (Auto) 16.2 % Burnett % (Auto) 4.5 % Eos % (Auto) 2.2 % Baso % (Auto) 0.3 % Immature Gran # (Auto) 0.01 (0.00-0.02) K/uL Neut # (Auto) 7.62 H (1.4-6.5) K/uL Lymph # (Auto) 1.61 (1.2-3.4) K/uL Burnett # (Auto) 0.45 (0.11-0.59) K/uL Eos # (Auto) 0.22 (0-0.5) K/uL Baso # (Auto) 0.03 (0-0.2) K/uL PT (9.0-12.0) Seconds INR (0.9-1.1) ABG pH (7.35-7.45) ABG pCO2 (35-46) mmHg ABG pO2 (80-95) mm/Hg ABG HCO3 (19-24) mmol/L ABG O2 Saturation (90-95) % ABG Base Excess (-9-1.8) mEq/L Ezequiel Test (Pos) Oxygen Given POC Sodium (135-144) mEq/L Sodium 125 L (136-145) mmol/L POC Potassium (3.3-5.0) mEq/L Potassium 2.9 L (3.5-5.1) mmol/L POC Chloride (101-112) mEq/L Chloride 75 L (98-107) mmol/L Carbon Dioxide 40 H (21-32) mmol/L POC Total CO2 (24-31) mEq/l Anion Gap 10.0 (3-11) POC Anion Gap (16-25) mmol/L POC BUN (7-18) mg/dl BUN 54 H (7-18) mg/dl Creatinine 2.93 H (0.6-1.4) mg/dl POC Creatinine (0.6-1.3) mg/dl Est Cr Clr Drug Dosing 70.2 ml/min Est GFR ( Amer) 28.0 Est GFR (Non-Af Amer) 24.2 BUN/Creatinine Ratio 18.5 (10-20) Glucose 435 H* (70-99) mg/dl POC Glucose 450 H* (70-99) POC Glucose (other) (70-99) mg/dl Estimat Average Glucose mg/dl Hemoglobin A1c (4.5-5.6) % POC Lactic Acid Allen (0.90-1.70) mmol/L Calcium 9.4 (8.5-10.1) mg/dl POC Ioniz Calcium [place] (1.12-1.32) mmol/l Phosphorus (2.5-4.9) mg/dl Magnesium 2.2 (1.8-2.4) mg/dl Total Bilirubin 0.5 (0.2-1) mg/dl AST 15 (15-37) U/L ALT 21 (12-78) U/L Alkaline Phosphatase 131 H (45-117) U/L Total Creatine Kinase 170 (39-308) U/L Troponin I < 0.015 (0-0.045) ng/ml Total Protein 9.2 H (6.4-8.2) gm/dl Albumin 3.8 (3.4-5.0) gm/dl Globulin 5.4 H (2.5-4.0) gm/dl Albumin/Globulin Ratio 0.7 L (0.9-2) Beta-Hydroxybutyric Acd 2.76 (0.2-2.81) mg/dl TSH 1.380 (0.300-4.500) uIu/ml Urine Color Urine Appearance (Clear) Urine pH (4.5-7.5) Ur Specific [place] (1.000-1.030) Urine Protein (Negative) Urine Glucose (UA) (Negative) Urine Ketones (Negative) Urine Blood (Negative) Urine Nitrite (Negative) Urine Bilirubin (Negative) Urine Urobilinogen (Negative) Ur Leukocyte Esterase (Negative) Urine WBC (Auto) (0-5) /hpf Urine RBC (Auto) (0-4) /hpf U Hyaline Cast (Auto) (0-5) /lpf U Epithel Cells (Auto) (0-5) /lpf Urine Bacteria (Auto) (Negative)
[2019-02-18] MEDS: INSULIN ASPART 100 UNITS/ML 3 ML PEN SC SCH ×5 (00:10→16:43)
[2019-02-18 00:21] LABS: BUN Creatinine Ratio 20.9 (10-20); Calcium 9.2 mg/dl (8.5-10.1); Creatinine Clr Calc Pharmacy 65.5 ml/min; Est GFR (African American) 48.5; Est GFR (Non-African American) 41.8; Phosphorus 2.2 mg/dl (2.5-4.9); Potassium 3.7 mmol/L (3.5-5.1)
[2019-02-18] MEDS ORDERED: LIDOCAINE HCL 1% 20 ML VIAL INJ ONE (04:44)
[2019-02-18] MEDS: SODIUM CHLORIDE 0.9% 1000ML 1,000 ML IV SCH (06:21)
[2019-02-18] MEDS: HEPARIN SOD 5,000 UNIT/0.5 ML VIAL SQ SCH (07:39)
[2019-02-18 07:40] LABS: Hematocrit (blood only) 36.8 % (42-52); Hemoglobin 12.7 g/dL (14.0-18.0); Mean Corpuscular Hgb Conc 34.5 g/dL (32-36); Mean Corpuscular Volume 82.1 fL (80-100); Mean Platelet Volume 9.5 fL (7.4-10.4); Platelet Count 208 K/uL (130-400); RDW Coefficient of Variation 13.4 % (11.5-14.5); RDW Standard Deviation 40.1 fL (36.4-46.3); Red Blood Count 4.48 M/uL (4.7-6.1); White Blood Count 6.82 K/uL (4.8-10.8)
[2019-02-18] MEDS: ASPIRIN 81 MG ECTAB PO SCH (07:42)
[2019-02-18] MEDS: PANTOprazole 40 MG TAB PO SCH (07:43)
[2019-02-18] MEDS: INSULIN GLARGINE SOLOSTAR 100 UNITS/ML 3 ML PEN SQ SCH (07:44)
[2019-02-18] MEDS: CARVEDILOL 6.25 MG TAB PO SCH (07:51)
[2019-02-18] MEDS: TRAMADOL HCL 50 MG TABLET PO SCH (07:51)
[2019-02-18 08:03] LABS: Albumin Level 2.9 gm/dl (3.4-5.0); Calcium 8.9 mg/dl (8.5-10.1); Creatinine Clr Calc Pharmacy 83.7 ml/min; Est GFR (Non-African American) 56.1; Magnesium 2.1 mg/dl (1.8-2.4); Potassium 3.7 mmol/L (3.5-5.1)
[2019-02-18 08:06] LABS: Albumin Globulin Ratio 0.6 (0.9-2); Bilirubin,Total 0.3 mg/dl (0.2-1); Globulin 4.7 gm/dl (2.5-4.0); Total Protein 7.6 gm/dl (6.4-8.2)
[2019-02-18] MEDS ORDERED: POTASSIUM CHLORIDE 20 MEQ TABCR PO SCH (09:00)
[2019-02-18] MEDS: POTASSIUM CHLORIDE 20 MEQ TABCR PO SCH (09:06)
[2019-02-18] MEDS ORDERED: cefTRIAXone SODIUM 2,000 MG in DEXTROSE 5% 50 ML IV SCH (09:30)
[2019-02-18] MEDS ORDERED: SODIUM CHLORIDE 0.9% 1000ML 1,000 ML IV SCH (09:45)
--- NOTE | 2019-02-18 09:56 | Pharmacy Report ---
Pharmacy Abx Initial Consult - Date of Service February 18, 2019 - Pharmacy Dosing Scope Date of Consult: 02/17/19 Consultation requested by: Dr. Christina Glover Pharmacy is consulted to initiate vancomycin IV dosing therapy, order appropriate labs and adjust drug dose/frequency. - Subjective The patient is a 48 year old M admitted on 02/17/19 02:34. - Objective Height: 5 ft 9 in Weight: 133 kg Vital Signs (Past 12hrs): Vital Signs Temp Pulse Pulse Resp BP Pulse Ox 02/18/19 07:18 36.8 C 83 20 108/64 95 02/18/19 03:18 37.0 C 79 19 124/75 96 02/17/19 23:41 83 02/17/19 23:00 37.2 C 93 H 17 110/72 91 Lab Results (24hrs): Laboratory Tests (24 Hours) 02/18/19 02/18/19 02/17/19 07:30 07:30 23:35 WBC 6.82 Creatinine 1.46 H D 1.86 H Est Cr Clr Drug Dosing 83.7 65.5 02/17/19 02/17/19 02/17/19 19:40 15:38 11:44 WBC Creatinine 2.01 H 2.03 H 2.09 H Est Cr Clr Drug Dosing 60.6 60.0 58.3 - Risk Factors for Resistance * History of infection with a multidrug-resistant organism: MRSA - Assessment & Plan Assessment 48 year old M admitted 02/17 for hyperglycemia and abscess on R side of chest wall. Patient has a history of skin lesions, including MRSA. Pertinent PMH includes diabetes and CKD. Surgery has been consulted to see the patient and plans for an I&D today. Patient was given a dose of daptomycin in the ED but then continued on vancomycin on admission for his history of MRSA. Rocephin was just added this AM, which would only provide additional gram negative coverage. SCr elevated on admission but is improved today (2-> 1.46). Will need to monitor closely in the setting of vancomycin therapy. Plan Vancomycin IV * Estimated PK Parameters: Vd 0.54 L/kg, Cliff 0.074 hr-1, t1/2 9.4 hr * Of note, pharmacy has dosed vancomycin in patient before so will use a combination of population and patient-specific kinetics * Loading dose: 2500 mg (19 mg/kg) * Maintenance dose: Change to 1750 mg IV (13 mg/kg) every 12 hours * Goal trough level : ~15 mcg/mL * Trough level ordered for 02/19/19 prior to the 3rd dose of new regimen - Note: PRIOR to steady state but need to monitor closely with risk factors for accumulation * A less than traditional dose and/or extended dosing interval has/have been selected due to likelihood of drug accumulation in obese patient/patient with h/o CKD. Pharmacy will continue to follow and will adjust dose/frequency as necessary. Thank you.
[2019-02-18] MEDS ORDERED: VANCOMYCIN HCL 1,750 MG in SODIUM CHLORIDE 0.9% 500 ML IV SCH ×2 (10:00→12:00)
--- NOTE | 2019-02-18 13:56 | Surgery Progress Note ---
Date of Service February 18, 2019 Assessment & Plan (1) Cellulitis of chest wall: I&D was performed. It was cultured. It was irrigated. A dressing can be placed. He can be discharged to home on antibiotic. Subjective Patient subjectively unchanged. Thinks she may have had some drainage from the area on the right side of his chest wall. There is no pain. He has not had fever or chills. Physical Exam Chest (Breasts): Additional Comments: 5 x 3 cm area of erythema was open. There was purulent drainage. It only involved subcutaneous tissue. Results & Data Vital Signs (Past 12 Hours) Vital Signs Temp Pulse Pulse Resp BP Pulse Ox 02/18/19 11:25 37.0 C 84 19 133/78 98 02/18/19 08:00 80 02/18/19 07:18 36.8 C 83 20 108/64 95 02/18/19 03:18 37.0 C 79 19 124/75 96
--- NOTE | 2019-02-18 14:51 | Operative Report ---
DATE OF OPERATION: 02/18/2019 PREOPERATIVE DIAGNOSIS: Abscess, right side of chest wall. POSTOPERATIVE DIAGNOSIS: Abscess, right side of chest wall. PROCEDURE: I and D of abscess. SURGEON: Kendall Goodson MD. FINDINGS: The patient had a 5 x 3 cm subcutaneous abscess with some purulent material within it. It did not extend below the subcutaneous tissue. TECHNIQUE: The area was prepped in the usual sterile fashion. The skin was anesthetized with 1% Xylocaine without epinephrine. There was a scab that was removed sharply. This then demonstrated the purulent drainage. I then opened the skin extending from that area into the subcutaneous tissue and expressing purulent material that was cultured. This cavity was then opened with blunt dissection and irrigated. A dressing was placed. Estimated blood loss was 3 mL. I attest to the content of the Intraoperative Record and any orders documented therein. Any exception s are noted below.
--- NOTE | 2019-02-18 14:56 | Pharmacy Report ---
Glycemic Control Progress Note - Date of Service February 18, 2019 - Scope Glycemic Pharmacist consulted for glycemic control to write orders per [facility] inpatient glycemic control protocol. - Objective Accuchecks BSG(last 24 hours):: 02/17/19 02/17/19 02/17/19 15:38 16:29 19:40 Glucose 108 H 176 H POC Glucose 103 H 02/17/19 02/17/19 02/18/19 20:20 23:35 00:08 Glucose 146 H POC Glucose 171 H 160 H 02/18/19 02/18/19 02/18/19 04:10 07:16 07:30 Glucose 115 H POC Glucose 120 H 119 H 02/18/19 11:23 Glucose POC Glucose 102 H HbA1c:: Hemoglobin A1c 13.5 % (4.5-5.6) H 02/17/19 04:09 - Recent Pertinent Medications The patient is currently receiving: * Basal insulin: Lantus 60 units every 24 hours * Correctional Insulin: Novolog Correction per scale ACHS Goal Range: Low 110 mg/dL - High 150 mg/dL Correction Factor: 10 mg/dL/unit * Prandial insulin: Per carb ratio of 1 unit per 4 grams CHO consumed - Outpatient Anti-Diabetic Meds NONCOMPLIANT DUE TO COSTS - Assessment & Plan ASSESSMENT: * See progress note from 02/17/19 for more background info, in short: * Pt receiving SQ basal bolus insulin regimen for hyperglycemia secondary to baseline DM (outpatient regimen on hold),stress/infection (on vancomycin for cellulitis). * Patient is currently receiving an average of 106 units of insulin per day * 60 units of basal insulin * 46 units of prandial/correctional insulin * BSGs ranging 103 - 450 mg/dl over the past 24hrs * Changes needed to insulin regimen: * AM Fasting BSG = 119 mg/dl. This is in goal range for patient based on inpa tient targets and co-morbidities. Therefore Basal insulin will be adjusted slightly to allow for lower dosing. * Post-prandial BSGs did start to trend downwards therefore will loosen slightly. * Total daily dose = ~ 100 units. PLAN FOR INPATIENT GLYCEMIC CONTROL: * Decreasing Lantus to 50 units SQ daily * Loosening correction factor to 15 mg/dl/unit * Loosening carb ratio to 1 unit per 5 grams CHO consumed * Continuing goal range of Low 120 mg/dL - High 150 mg/dL RECOMMENDATIONS FOR DISCHARGE: * based upon coverage for the patient, he can use either Lantus (but will require Novolog) or Relion 70/30 * Lantus 50 units daily + Novolog 10 units with meals + metformin 1 gm PO BID * Relion 70/30 - 40 units BIDM + metformin 1 gm PO BID * Please note that the plan above was derived based on current level of insulin resistance and hospital stress. These recommendations are appropriate for inpatient admission only. Plan of care upon discharge will need to be reassessed to avoid potential outpatient hypo/hyperglycemia. Thank you.
--- NOTE | 2019-02-18 15:28 | Discharge Summary ---
Date of Service February 18, 2019 Admission HPI Per Admitting Provider The patient is a 48-year-old male with a past medical history including poorly controlled diabetes mellitus type 2, hypertension, morbid obesity, and recurrent MRSA skin infections, who presents to the emergency department with persistent fatigue, generalized weakness, decreased oral intake and blood sugar over 400 when tested this morning. He reports that he has decreased his morning Lantus from the 60 units prescribed, to 30 units every morning, due to his co-pay rising from $30 for 2 boxes to over $400 and not being able to afford his insulin. He has had persistent skin infections, that have been diagnosed as MRSA in the past, in particular has one under his right axilla that was initially painful, but is now hardened and less uncomfortable. Principal Diagnosis Severe hyperglycemia Uncontrolled diabetes mellitus type 2 insulin requiring Noncompliance with insulin due to financial reasons Acute kidney injury on chronic kidney disease stage III Dehydration/ATN/diuretic contributing to renal failure Morbid obesity Suspected obstructive sleep apnea Essential hypertension Dyslipidemia Nonischemic cardiomyopathy Right chest wall abscess Discharge Exam Physical examination General patient appears to be comfortable, not in acute distress, morbidly HEENT: Atraumatic , normocephalic /no jaundice /no pallor /anicteric /no dry mucous membrane /normal external ear inspection Neck: Supple /no swelling /central trach Heart: S1/S2 normal/regular rate and rhythm/no gallop /no rub /no murmur Lungs: Clear to auscultation bilaterally/normal chest with expansion/no rhonchi/no rales/no wheezing/no use of accessory muscles of respiration Abdomen: Soft/nontender/no guarding/no rebound/no organomegaly/no pulsatile mass Musculoskeletal: No swelling/no edema/no tenderness/normal range of motion Neuro exam: Awake alert oriented 3/cranial nerves II through XII appear to be intact/sensation intact/moves all extremities/no abnormal movements Psychiatric evaluation: No depressed mood/normal affect Skin: 5 x 5 cm abscess on the right side of chest wall about 20 cm below armpit Extremity: Normal pulse/no pitting edema/no clubbing or cyanosis Endocrine/lymphatic: No obvious lymphadenopathy /no lymphedema Discharge Data Allergies Allergy/AdvReac Type Severity Reaction Status Date / Time No Known Allergies Allergy Verified 02/17/19 00:16 Consultations 02/17/19 02:16 ED Decision to Admit Stat 02/17/19 03:49 Consult Case Management - Discharge Planning Routine 02/17/19 16:36 Consult General Surgery Routine Hospital Course (1) Hyperglycemia due to type 2 diabetes mellitus: Glucose 435 upon entrance laboratories. ABG: pH 7.45, PCO2 59, PO2 78 and O2 saturation 95.3 on 2 L nasal cannula oxygen. No DKA Patient's blood sugars have been out of control due to inability to afford his Lantus insulin, which he has decreased from 60 to 30 units subcu every morning. Resume Lantus 60 units subcu upon discharge Currently blood sugar is under Both metformin and glipizide were stopped, patient was started on short acting pre-meal coverage instead of 3.5 units before each meal. Patient variable renal function vomited not relying on metformin and glyburide. Based on case management research patient insulin is expensive because he did not meet his deductible yet, his deductible is 1350, discussed with the patient the options we have including insulin 70/30 versus meeting his deductible which she has only $650 left for this year. Patient used to meet his deductible and go back to the insulin regimen that he prefers which is Lantus pain plus we added rapid acting insulin before meals (2) Cellulitis of chest wall: Cellulitis of chest wall, and other areas, likely MRSA due to history- Placed on daptomycin I, due to acute kidney injury on discharge, after that renal function improved and he was switched to vancomycin. Surgical consult appreciated status post incision and drainage, ulcer was superficial. His antibiotics were switched to cefdinir/Zyvox for 5 days He was instructed to take probiotics with the antibiotic. (3) Acute kidney injury: Patient's creatinine has been slowly increasin.12 on 05/03/2018. 1.90 on 08/02/2018. 2.33 on 11/09/2018. And 2.93 on 02/17/2019 today. Status post generous hydration, and generous potassium replacement. Patient creatinine improved to 1.45, which is almost his baseline. His metolazone was stopped on discharge, his Bumex was decreased from 4 mg p.o. daily to 2 mg p.o. daily. Likely acute kidney injury was ATN secondary to above-mentioned medications plus hyperglycemia plus dehydration (4) Acute hypokalemia: As mentioned above, potassium level is stable upon discharge, patient was started on 40 mEq p.o. day (5) Hx MRSA infection: As noted above (6) GERD (gastroesophageal reflux disease): Continue pantoprazole 40 mg p.o. daily (7) HLD (hyperlipidemia): Started on Lipitor 20 mg p.o. (8) HTN (hypertension): Continue carvedilol 6.25 mg p.o. twice daily with hold parameters. Hold metolazone and bumetanide. (9) Morbid obesity with BMI of 45.0-49.9, adult: Counseling Instructed to have sleep study as an outpatient given his nonischemic cardiomyopathy, recent cath about 1-1/2 years ago showed coronary artery disease less than 40% in few coronaries Total Time Total Time Spent Total Time Spent (In Minutes): 45 minutes Total Time Includes: Examination of the Patient, Discharge Planning, Medication Reconciliation, Communication With Other Providers and Other Discharge Plan Discharge Items Patient Disposition: Home - Self-Care Reason For Visit: HYPERGLYCEMIA IN DIABETES MELLITUS II Discharge Diagnosis: Severe hyperglycemia Uncontrolled diabetes mellitus type 2 insulin-dependent Cellulitis of right side of chest wall status post incision and drainage Morbid obesity Dyslipidemia Essential hypertension GERD Nonischemic cardiomyopathy Clinically suspected obstructive sleep Condition: Fair Discharge Goals: Decrease discomfort, Improve disease control, Improve function and Increase independence Specific Goals: Compliance with insulin Activity: Resume your previous activity Lifting: Gradually increase as tolerated Bathing: No limitations Sexual Activity: When tolerated Exercise/Sports: Gradually increase as tolerated Driving/Machine Use: Resume 3 days after discharge Non-emergency contact: Primary Care Provider Call non-emergency contact if: you have any medication questions, your symptoms worsen and your pain is not controlled Follow-up/Referrals: Idris Moreno III, MD [Primary Care Provider] - 02/23/19 2:00 pm (Please, follow up at Dr. oMreno's office with his assistant auto center manager, Iwona Allan, on February 23 at 2:00 pm. *If you need to change this appointment, call their office at [phone]. MR. NUR, I LEFT A $0 COPAY CARD FOR LANTUS IN YOUR ROOM. HOPEFULLY, THIS CARD WILL HELP MAKE IT MORE AFFORDABLE FOR YOU. I CALLED YOUR INSURANCE COMPANY AND THE REP TOLD ME THAT YOU HAVE AN ANNUAL DEDUCTIBLE OF $1350 AND THAT IS WHY YOU HAVE BEEN PAYING FULL CANO FOR YOUR MEDICATIONS. THE REP EXPLAINED THAT WHEN YOUR DEDUCTIBLE HAS BEEN MET, YOU WILL HAVE A ZERO COPAY FOR LANTUS. I CALLED THE [employer] AND THEY ARE WILLING TO ACCEPT THE COPAY CARD. THIS SAVINGS CARD MAY OR MAY NOT COVER THE DEDUCTIBLE BUT, WE WON'T KNOW FOR SURE UNTIL YOU USE IT. PLEASE, TRY USING THE ONE I PRINTED FROM THE INTERNET FIRST BECAUSE THE ACTUAL CARD I GAVE YOU, MAY BE . PLEASE, CALL ME WITH ANY QUESTIONS. CONSUELO QUIGLEY RN [phone]) Diet: Carb Consistent or DM2 Addtl Provider Instructions: Follow-up with your primary care physician for sleep study, you have suspected obstructive sleep apnea. Continue taking your medications as instructed. Prescriptions: New bumetanide 2 mg tablet 2 mg PO DAILY Qty: 30 RF: 0 potassium chloride [Klor-Con M20] 20 mEq Tablet,Er Particles/Crystals 40 meq PO DAILY Qty: 30 RF: 0 cefdinir 300 mg capsule 300 mg PO BID 5 Days Qty: 10 RF: 0 linezolid [Zyvox] 600 mg tablet 600 mg PO BID 10 Days Qty: 20 RF: 0 Humalog Aden KwikPen U-100 100 unit/mL insulin pen, half-unit 3.5 units SQ TID Qty: 3 RF: 2 pen needle, diabetic [BD Ultra-Fine [place] Pen Needle] 32 gauge x 5/32" needle .ROUTE .MEDSUPPLY Qty: 10 RF: 0 Lactobacillus acidophilus capsule 100 mg PO TID Qty: 30 RF: 0 atorvastatin [Lipitor] 20 mg tablet 20 mg PO DAILY Qty: 30 RF: 3 Continued pantoprazole 40 mg tablet,delayed release (DR/EC) 40 mg PO DAILY Qty: 90 RF: 3 aspirin 81 mg Tablet,Delayed Release (Dr/Ec) 81 mg PO DAILY RF: 0 Lantus Solostar U-100 Insulin 100 unit/mL (3 mL) Insulin Pen 60 unit SUBCUT DAILY RF: 0 carvedilol 3.125 mg tablet 6.25 mg PO BID RF: 0 Discontinued tramadol 50 mg tablet 50 mg PO BID Qty: 60 RF: 0 glyburide 5 mg Tablet 10 mg PO DAILY RF: 0 metformin 500 mg Tablet Extended Release 24hr 1,000 mg PO BID RF: 0 bumetanide 2 mg tablet 4 mg PO DAILY RF: 0 metolazone 5 mg Tablet 5 mg PO DAILY PRN (Reason: Fluid Retention) RF: 0 Stand-Alone Forms: [facility] Discharge Orders: Discharge Order (Routine); Ordered 02/18/19 Ordered By: Jalyn Glover Admission Data Admit Date/Time: 02/17/19 02:34 Attending Provider: Jalyn Carrillo Admit Provider: Maximiliano Spencer Primary Care Provider: Idris Moreno III Other Providers: Maximiliano Spencer ; Kendall Goodson Service: Telemetry
[2019-02-19] MEDS ORDERED: INSULIN GLARGINE SOLOSTAR 100 UNITS/ML 3 ML PEN SQ SCH ×2 (09:00)
[2019-02-19] MEDS ORDERED: VANCOMYCIN TROUGH ONE (09:30)
== END 2019-02-18 18:26 | disposition home or self-care (01) | DRG 603 ==
LOC: ED 23:35 → SUATTDRO 02-17 02:34 → 2S 02-17 02:34
DX: Z79.82 Long term (current) use of aspirin; I10 Essential (primary) hypertension; E78.5 Hyperlipidemia, unspecified; E11.65 Type 2 diabetes mellitus with hyperglycemia; Z86.14 Personal history of Methicillin resistant Staphylococcus aureus infection; Z79.84 Long term (current) use of oral hypoglycemic drugs; K21.9 Gastro-esophageal reflux disease without esophagitis; N17.9 Acute kidney failure, unspecified; L02.213 Cutaneous abscess of chest wall; L03.313 Cellulitis of chest wall; E87.6 Hypokalemia

== ENCOUNTER 2019-08-10 10:40 | Inpatient (IN) ==
[2019-08-10] MEDS ORDERED: SODIUM CHLORIDE 0.9% 1000ML 1,000 ML IV ONE ×2 (11:28→13:07)
--- NOTE | 2019-08-10 11:55 | Emergency Department Note ---
History of Present Illness General Chief complaint: Shoulder Pain Stated complaint: LEFT SHOULDER PAIN/ABSCESS, WEAKNESS Time Seen by Provider: 08/10/19 11:00 History of Present Illness Maximum Pain Intensity: 4 49-year-old male who presents to the emergency department with complaint of not feeling well for the past 2 weeks. The patient reports that he developed an infection across his left shoulder approximately 2 weeks ago. He was seen by his family doctor yesterday where 1 of the wounds were drained and cultured. He was placed on Ceftin and Bactrim DS antibiotics because of a prior history of MRSA. The patient reports that his symptoms have progressively worsened over the past 3 days. He has had a mild nonproductive cough and sinus congestion. He denies any sore throat, chest pain, shortness of breath, abdominal pain, urinary symptoms or diarrhea. The patient is a type 2 insulin-dependent diabetic. He denies any pain extending from the shoulder into his neck, back or chest. The patient denies any known injuries to the area. The patient was admitted to our facility last year for a skin infection that did not require surgical intervention. Home Medications Home Medications Medication Instructions Recorded Confirmed Type Lantus Solostar U-100 Insulin 60 unit SUBCUT QAM 04/03/18 08/10/19 History aspirin 81 mg PO QAM 04/03/18 08/10/19 History pen needle, diabetic [BD #10 ea 02/18/19 08/09/19 Rx Ultra-Fine [place] Pen Needle] acidophilus-pectin, citrus 1 cap PO QAM 03/09/19 08/10/19 History blood sugar diagnostic #10 ea 04/12/19 08/09/19 History bumetanide 2 mg tablet 2 mg PO DAILY PRN tab 04/12/19 08/10/19 History lancets 30 gauge #25 ea 04/12/19 08/09/19 History pen needle, diabetic 32 gauge x #50 ea 04/12/19 08/09/19 History 1/4" pen needle, diabetic 32 gauge x #50 ea 04/12/19 08/09/19 History 1/4" metolazone 5 mg tablet 5 mg PO DAILY PRN #30 tab 04/21/19 08/10/19 Rx carvedilol 6.25 mg tablet 6.25 mg PO BID #180 tab 07/26/19 08/10/19 Rx tramadol 50 mg tablet 50 mg PO BID PRN #60 tab 07/31/19 08/10/19 Rx insulin lispro 100 unit/mL 3.5 units SQ .COMPLEX #15 ml 08/08/19 08/10/19 Rx subcutaneous pen cefuroxime axetil 500 mg tablet 500 mg PO BID 14 Days #28 tab 08/09/19 08/10/19 Rx sulfamethoxazole 800 1 tab PO BID 14 Days #28 tab 08/09/19 08/10/19 Rx mg-trimethoprim 160 mg tablet atorvastatin [Lipitor] 20 mg PO QAM 08/10/19 08/10/19 History pantoprazole 40 mg PO QAM 08/10/19 08/10/19 History Allergies Allergy/AdvReac Type Severity Reaction Status Date / Time No Known Allergies Allergy Verified 08/10/19 11:52 Past Med/Surg History Medical History Acquired claw toe of left foot (Acute) Acquired claw toe of right foot (Acute) Acquired hammer toe of right foot (Acute) CHF (congestive heart failure) Chronic back pain (Chronic) CKD (chronic kidney disease) Diabetes (Chronic) Diabetes mellitus with diabetic polyneuropathy (Acute) Diabetic gastroparesis (Chronic) Diabetic peripheral neuropathy GERD (gastroesophageal reflux disease) (Chronic) Hammertoe of left foot (Acute) HLD (hyperlipidemia) (Chronic) HTN (hypertension) (Chronic) Hx MRSA infection (Chronic) Leg abscess Morbid obesity with BMI of 45.0-49.9, adult (Chronic) Myocardial infarction Non-ischemic cardiomyopathy Peripheral edema (Chronic) Restless leg syndrome Skin ulcer of left foot including toes (Acute) Surgical History Hx of cardiac cath Hx of colonoscopy Hx of hand surgery Family History Other No significant family history Social History Preferred Language: Brazilian Communication Ability: Effective Visual Impairment: No Limitations Hearing Ability: Normal 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 Beliefs That Will Affect Care: None marital status: Single Current Living Situation: Parent current occupational status: employed Feels Safe at Home: Yes Smoking Status: Never smoker Hx Alcohol Use: No Hx Substance Use: No Review of Systems 10 system review was performed and was negative except for pertinent positives and negatives as indicated in history of present illness Physical Exam Vital Signs Vital Signs - 24 hr 08/10/19 10:49 08/10/19 12:41 Temperature 36.8 C Temperature Source Oral Pulse Rate 88 Pulse Rate [Apical] 81 Respiratory Rate 22 18 Blood Pressure 137/81 Blood Pressure [Left Arm] 137/83 Blood Pressure Mean 99 Blood Pressure Mean [Left Arm] 101 Pulse Oximetry 95 99 Oxygen Delivery Method Room Air Room Air Sepsis Recent Fever Within 48 Hours No Sepsis New/Unexplained Change in Mental Status No Sepsis Action Taken by Nursing No Action Required CONSTITUTIONAL: Obese male, alert and oriented X 3. Patient does not appear acutely or toxic. HEENT: Normocephalic, atraumatic. Pupils equal, round and reactive. Ears and nares are clear. No scleral icterus or conjunctival injection/pallor. Examination of the oropharynx does not show any posterior pharyngeal erythema, tonsillar hypertrophy or exudates. NECK: Full active range of motion without discomfort. LYMPHATICS: No cervical chain adenopathy. RESPIRATORY: Clear to auscultation bilaterally with no wheezing, crackles, rhonchi or stridor. CARDIOVASCULAR: Regular rate and rhythm with no murmurs, rubs or gallops. GASTROINTESTINAL: Bowel sounds present in all quadrants. Soft and nontender to palpation. MUSCULOSKELETAL: Full range of motion of all joints without discomfort. INTEGUMENTARY: Examination shows several areas of infection on the left posterior shoulder/trapezius region with notable induration. No fluctuance appreciated. 1 of the wounds does have a proteinaceous region in the central portion of the wound that the patient reports was drained in the office yesterday. No purulent drainage or sinus tracts appreciated. HEMATOLOGIC: No ecchymosis or petechiae. PSYCHIATRIC: Positive affect. NEUROLOGIC: No focal neurologic deficits noted. Course Course Patient history and physical exam were performed. Nurse's notes were reviewed. Vital signs were reviewed and were normal. The patient is normotensive and afebrile. IV access was established, and labs were drawn, including blood cultures x2. Review of labs does show a mild leukocytosis with left shift and bandemia. Sed rate was elevated. Fortunately serum lactate was normal. The patient has a significant hypokalemia with a potassium of 2.7. Patient is also mildly hyponatremic at 132. Creatinine is 2.15, and review of prior labs shows that the patient is usually within the 1-1.5 range. Glucose is 149. The patient is negative for influenza. A portable chest x-ray does not show any pneumonia. Ultrasound of the shoulder does show a small collection of fluid, otherwise cellulitis is suspected. I did discuss the case further with my attending physician, Dr. Gill, as well as our Hand Ii Thermal Cutter, who indicated that the patient does meet criteria for admission. I also discussed findings with the patient, and recommended admission for IV antibiotics, as well as sodium and potassium repletion. The patient was in agreement. The patient was administered IV vancomycin and cefe pime after discussing the case with our ED pharmacist. The patient was also ordered a K rider. The case was then further discussed with Dr. Willard, [facility] for further management. Please see her dictation for further treatment and final disposition. Administered Medications Potassium Chloride 20 meq/ (Sodium Chloride) 1,010 mls @ 125 mls/hr IV .Q8H5M STEVE Stop: 08/11/19 00:04 Last Admin: 08/10/19 16:59 Dose: 125 mls/hr Documented by: [id number] Insulin Human Lispro (Humalog) 3.5 units SC TIDM STEVE Stop: 09/09/19 16:59 Last Admin: 08/10/19 17:17 Dose: 3.5 units Documented by: [id number] Cosigned by: [id number] Discontinued Medications Sodium Chloride (Nss 1000ml) 1,000 mls @ 999 mls/hr IV .Q1H1M ONE Stop: 08/10/19 12:28 Last Infusion: 08/10/19 13:06 Dose: 0 mls/hr Documented by: [id number] Admin: 08/10/19 12:05 Dose: 999 mls/hr Documented by: [id number] Vancomycin HCl 2,750 mg/ (Sodium Chloride) 555 mls @ 200 mls/hr IV NOW ONE Stop: 08/10/19 15:46 Last Infusion: 08/10/19 17:09 Dose: 0 mls/hr Documented by: [id number] Admin: 08/10/19 14:03 Dose: 200 mls/hr Documented by: [id number] Cefepime HCl (Maxipime) 2,000 mg in 20 mls @ 5 mls/min IV NOW STA; Protocol Stop: 08/10/19 13:03 Last Admin: 08/10/19 13:46 Dose: 5 mls/min Documented by: [id number] Potassium Chloride (K Ian / Wtr) 10 meq in 100 mls @ 100 mls/hr IV Q1H STA Stop: 08/10/19 14:05 Last Infusion: 08/10/19 14:43 Dose: 0 mls/hr Documented by: [id number] Admin: 08/10/19 13:43 Dose: 100 mls/hr Documented by: [id number] Sodium Chloride (Nss 1000ml) 1,000 mls @ 999 mls/hr IV .Q1H1M ONE Stop: 08/10/19 14:07 Last Infusion: 08/10/19 14:44 Dose: 0 mls/hr Documented by: [id number] Admin: 08/10/19 13:43 Dose: 999 mls/hr Documented by: [id number] Potassium Chloride (Klor-Con M20) 40 meq PO NOW STA Stop: 08/10/19 15:36 Last Admin: 08/10/19 16:59 Dose: 40 meq Documented by: [id number] Medical Decision Making Medical Records Attestation: I reviewed the patient's medical records. Home Medications Current Medication List: was personally reviewed by me Laboratory Data Attestation: I reviewed the patient's lab results. Result diagrams: 08/10/19 11:45 08/10/19 15:41 Lab Results 08/10/19 08/10/19 08/10/19 Range/Units 11:45 11:45 11:45 WBC 11.01 H (4.8-10.8) K/uL RBC 5.06 (4.7-6.1) M/uL Hgb 14.8 (14.0-18.0) g/dL Hct 42.6 (42-52) % MCV 84.2 (80-100) fL MCH 29.2 (25-34) pg MCHC 34.7 (32-36) g/dL RDW Std Deviation 39.8 (36.4-46.3) fL RDW Coeff of [place] 13.4 (11.5-14.5) % Plt Count 213 (130-400) K/uL MPV 9.7 (7.4-10.4) fL Immature Gran % (Auto) 0.2 % Neut % (Auto) 76.5 % Lymph % (Auto) 16.0 % [place] % (Auto) 5.7 % Eos % (Auto) 1.3 % Baso % (Auto) 0.3 % Immature Gran # (Auto) 0.02 (0.00-0.02) K/uL Neut # (Auto) 8.43 H (1.4-6.5) K/uL Lymph # (Auto) 1.76 (1.2-3.4) K/uL [place] # (Auto) 0.63 H (0.11-0.59) K/uL Eos # (Auto) 0.14 (0-0.5) K/uL Baso # (Auto) 0.03 (0-0.2) K/uL ESR 63 H (0-14) mm/hr Sodium 128 L (136-145) mmol/L Potassium 2.5 L* (3.5-5.1) mmol/L Chloride 81 L (98-107) mmol/L Carbon Dioxide 39 H (21-32) mmol/L Anion Gap 8.0 (3-11) BUN 71 H (7-18) mg/dl Creatinine 2.31 H (0.6-1.4) mg/dl Est Cr Clr Drug Dosing 53.5 ml/min Est GFR ( Amer) 37.1 Est GFR (Non-Af Amer) 32.0 BUN/Creatinine Ratio 30.7 H (10-20) Glucose 224 H (70-99) mg/dl Lactate (0.4-2.0) mmol/L Calcium 9.3 (8.5-10.1) mg/dl Total Bilirubin 0.7 (0.2-1) mg/dl AST 18 (15-37) U/L ALT 20 (12-78) U/L Alkaline Phosphatase 113 (45-117) U/L Troponin I < 0.015 (0-0.045) ng/ml C-Reactive Protein 1.78 H (0-0.29) mg/dl Total Protein 8.7 H (6.4-8.2) gm/dl Albumin 3.5 (3.4-5.0) gm/dl Globulin 5.2 H (2.5-4.0) gm/dl Albumin/Globulin Ratio 0.7 L (0.9-2) Influenza Type A (PCR) (Neg) Influenza Type B (PCR) (Neg) 08/10/19 08/10/19 Range/Units 11:45 12:05 WBC (4.8-10.8) K/uL RBC (4.7-6.1) M/uL Hgb (14.0-18.0) g/dL Hct (42-52) % MCV (80-100) fL MCH (25-34) pg MCHC (32-36) g/dL RDW Std Deviation (36.4-46.3) fL RDW Coeff of Soledad (11.5-14.5) % Plt Count (130-400) K/uL MPV (7.4-10.4) fL Immature Gran % (Auto) % Neut % (Auto) % Lymph % (Auto) % [place] % (Auto) % Eos % (Auto) % Baso % (Auto) % Immature Gran # (Auto) (0.00-0.02) K/uL Neut # (Auto) (1.4-6.5) K/uL Lymph # (Auto) (1.2-3.4) K/uL [place] # (Auto) (0.11-0.59) K/uL Eos # (Auto) (0-0.5) K/uL Baso # (Auto) (0-0.2) K/uL ESR (0-14) mm/hr Sodium (136-145) mmol/L Potassium (3.5-5.1) mmol/L Chloride (98-107) mmol/L Carbon Dioxide (21-32) mmol/L Anion Gap (3-11) BUN (7-18) mg/dl Creatinine (0.6-1.4) mg/dl Est Cr Clr Drug Dosing ml/min Est GFR ( Amer) Est GFR (Non-Af Amer) BUN/Creatinine Ratio (10-20) Glucose (70-99) mg/dl Lactate 1.2 (0.4-2.0) mmol/L Calcium (8.5-10.1) mg/dl Total Bilirubin (0.2-1) mg/dl AST (15-37) U/L ALT (12-78) U/L Alkaline Phosphatase (45-117) U/L Troponin I (0-0.045) ng/ml C-Reactive Protein (0-0.29) mg/dl Total Protein (6.4-8.2) gm/dl Albumin (3.4-5.0) gm/dl Globulin (2.5-4.0) gm/dl Albumin/Globulin Ratio (0.9-2) Influenza Type A (PCR) Neg for Influ A (Neg) Influenza Type B (PCR) Neg for Influ B (Neg) Imaging Data Attestation: I personally reviewed and interpreted this imaging study as follows: My Impression: My interpretation of reportable chest x-ray does not show any consolidations or pneumothorax. Cardiomegaly is noted. Ultrasound of the left posterior shoulder does show a small collection of fluid, otherwise no other acute findings appreciated. Radiologist reports were reviewed. Radiologist's Impression: XR chest 1V portable HISTORY: 49 years-old Male Not feeling well acute weakness COMPARISON: Chest radiograph 02/17/2019 TECHNIQUE: Portable AP view of the chest FINDINGS: Cardiac silhouette is enlarged, unchanged. Unchanged mild right hemidiaphragm elevation with mild linear right basilar atelectasis/scarring. No pneumothorax, pleural effusion or overt pulmonary edema. No airspace consolidation typical for pneumonia. IMPRESSION: 1. Unchanged right hemidiaphragm elevation with right lung base scarring/atelectasis. 2. Cardiomegaly. US extremity non-vascular ltd CLINICAL HISTORY: L posterior shoulder cellulitis vs. abscess COMPARISON STUDY: No previous studies for comparison. FINDINGS: Ultrasonic evaluation of the posterior neck primarily on the left shows moderately edematous tissue throughout. There is a 2.6 x 0.7 cm slightly complex collection. This potentially represents a small abscess. IMPRESSION: 1. Generalized soft tissue edematous change. 2. Potential small 2.6 x 0.7 cm collection/abscess ECG Data Attestation: I personally reviewed and interpreted this ECG as follows: Indication: + back/shoulder pain and + weakness Rate (beats per minute): 82 Rhythm: + normal sinus ECG Intervals/blocks: + Prolonged QT ECG [place]: + Left axis deviation ECG ST segments: + Normal ST segments Comparison ECG Date: from (02/17/2019) Change: no significant change Blood Pressure Blood Pressure Findings: Normal blood pressure MDM Narrative Patient presents to the emergency department with complaint of not feeling well, suffering an infection of the left shoulder. The patient did have wound cultures collected yesterday in the office, and results are currently pending. Today's work-up does show a small collection of fluid that is not amenable to I&D at this time. The patient was also found to be notably hypokalemic and hyponatremic. He also has evidence for acute kidney injury. Impression & Plan Acute kidney injury, Skin abscess, Acute hypokalemia, Acute hyponatremia, Diabetes mellitus type 2, insulin dependent Discharge Plan Visit Data *Final* Discharge Date/Time: 08/10/19 14:42 Chief Complaint: Shoulder Pain Stated Complaint: LEFT SHOULDER PAIN/ABSCESS, WEAKNESS ED Provider: Satish Gill ED Midlevel Provider: Peter Etienne Discharge Problem: Acute kidney injury, Skin abscess, Acute hypokalemia, Acute hyponatremia, Diabetes mellitus type 2, insulin dependent Patient Disposition: Admitted As Inpatient Discharge Instructions Interventions: ED Discharge Assessment Last Done: 08/10/19 14:42 Discharge Problem: Skin abscess Qualifiers: Site of cutaneous abscess: other site Qualified Code(s): L02.818 - Cutaneous abscess of other sites
--- NOTE | 2019-08-10 12:00 | XRay Report ---
XR chest 1V portable HISTORY: 49 years-old Male Not feeling well acute weakness COMPARISON: Chest radiograph 02/17/2019 TECHNIQUE: Portable AP view of the chest FINDINGS: Cardiac silhouette is enlarged, unchanged. Unchanged mild right hemidiaphragm elevation with mild kristin ear right basilar atelectasis/scarring. No pneumothorax, pleural effusion or overt pulmonary edema. N o airspace consolidation typical for pneumonia. IMPRESSION: 1. Unchanged right hemidiaphragm elevation with right lung base scarring/atelectasis. 2. Cardiomegaly. ACT 112: Negative or not required by law. The above report was generated using voice recognition software. It may contain grammatical, syntax o r spelling errors. Electronically signed by: Lawson Zaragoza M.D. 08/10/2019 11:59 AM
[2019-08-10 12:03] LABS: Basophils # (auto) 0.03 K/uL (0-0.2); Basophils % (auto) 0.3 %; Eosinophils # (auto) 0.14 K/uL (0-0.5); Eosinophils % (auto) 1.3 %; Hematocrit (blood only) 42.6 % (42-52); Hemoglobin 14.8 g/dL (14.0-18.0); Immature Granulocytes # (auto) 0.02 K/uL (0.00-0.02); Immature Granulocytes % (auto) 0.2 %; Lymphocytes # (auto) 1.76 K/uL (1.2-3.4); Mean Corpuscular Hemoglobin 29.2 pg (25-34); Mean Corpuscular Hgb Conc 34.7 g/dL (32-36); Mean Corpuscular Volume 84.2 fL (80-100); Mean Platelet Volume 9.7 fL (7.4-10.4); Monocytes # (auto) 0.63 K/uL (0.11-0.59); Monocytes % (auto) 5.7 %; Neutrophils # (auto) 8.43 K/uL (1.4-6.5); Neutrophils % (auto) 76.5 %; Platelet Count 213 K/uL (130-400); RDW Coefficient of Variation 13.4 % (11.5-14.5); RDW Standard Deviation 39.8 fL (36.4-46.3); Red Blood Count 5.06 M/uL (4.7-6.1); White Blood Count 11.01 K/uL (4.8-10.8)
[2019-08-10 12:29] LABS: Alanine Aminotransferase 20 U/L (12-78); Albumin Globulin Ratio 0.7 (0.9-2); Albumin Level 3.5 gm/dl (3.4-5.0); Alkaline Phosphatase 113 U/L (45-117); Aspartate Aminotransferase 18 U/L (15-37); BUN Creatinine Ratio 30.7 (10-20); Bilirubin,Total 0.7 mg/dl (0.2-1); Blood Urea Nitrogen 71 mg/dl (7-18); C Reactive Protein 1.78 mg/dl (0-0.29); Calcium 9.3 mg/dl (8.5-10.1); Carbon Dioxide 39 mmol/L (21-32); Chloride 81 mmol/L (98-107); Creatinine Clr Calc Pharmacy 53.5 ml/min; Est GFR (African American) 37.1; Globulin 5.2 gm/dl (2.5-4.0); Glucose 224 mg/dl (70-99); Potassium 2.5 mmol/L (3.5-5.1); Sodium 128 mmol/L (136-145); Total Protein 8.7 gm/dl (6.4-8.2); Troponin I < 0.015 ng/ml (0-0.045)
--- NOTE | 2019-08-10 12:38 | Ultrasound Report ---
US extremity non-vascular ltd CLINICAL HISTORY: L posterior shoulder cellulitis vs. abscess COMPARISON STUDY: No previous studies for comparison. FINDINGS: Ultrasonic evaluation of the posterior neck primarily on the left shows moderately edematou s tissue throughout. There is a 2.6 x 0.7 cm slightly complex collection. This potentially represents a small abscess. IMPRESSION: 1. Generalized soft tissue edematous change. 2. Potential small 2.6 x 0.7 cm collection/abscess ACT 112: Negative or not required by law. The above report was generated using voice recognition software. It may contain grammatical, syntax or spelling errors. Electronically signed by: Kendall Ewing M.D. 08/10/2019 12:37 PM
[2019-08-10 12:45] LABS: Influenza A virus by PCR Neg for Influ A (Neg); Influenza B virus by PCR Neg for Influ B (Neg)
[2019-08-10] MEDS ORDERED: VANCOMYCIN CONSULT ACTIVE PRN ×2 (13:00→15:15)
[2019-08-10] MEDS ORDERED: VANCOMYCIN HCL 2,750 MG in SODIUM CHLORIDE 0.9% 500 ML IV ONE (13:00)
[2019-08-10] MEDS ORDERED: CEFEPIME 2,000 MG/20 ML VIAL IV STA (13:00)
[2019-08-10] MEDS ORDERED: POTASSIUM CHLORIDE / WTR 10 MEQ/100 ML PLCT IV STA (13:06)
--- NOTE | 2019-08-10 13:59 | History & Physical Report ---
Date of Service August 10, 2019 Assessment & Plan (1) ZAIRE (acute kidney injury): Patient with CKD, baseline Cr appx 2. Presents today with Cr = 2.31 in setting of frequent diuretic use. Suspect prerenal etiology. Patient received 2L NSS in the ER. -Continue NSS at 125mL/hr -Repeat BMP at 18:00 -Avoid nephrotoxic agents -Renal dosing where needed Present on Admission?: Yes (2) Hyponatremia: Om=286. Most likely secondary to diuretic losses -Check urine and serum osm -NSS administered, repeat BMP at 1800 Present on Admission?: Yes (3) Hypokalemia: K=2.5. Most likely secondary to renal losses in setting of Bumex use. Given 10mEq in ER. -Will place 20mEq in maintenance fluids -KCl 40mEq po x 1 -Repeat BMP at 18:00 -Cautious repletion in patient with ZAIRE on CKD to avoid hyperkalemia Present on Admission?: Yes (4) Skin abscess: Patient with history of MRSA skin lesions in the past. Most likely pathogen in this case as well -Continue Vancomycin -Hold Cefuoxime and Bactrim in favor of IV while inpatient -Warm compresses -Tramadol as needed for pain -Contact precautions -Patient may need additional I/D with packing if abscesses fail to improve Present on Admission?: Yes (5) Chronic diastolic CHF (congestive heart failure): Patient appears volume contracted at present, most likely secondary to diuretic use -Continue Carvedilol -Hold diuretics Present on Admission?: Yes (6) Diabetes: Blood sugar presently 224 -Continue home insulin use, Lantus 60 units daily -Novolog with meals -Continue to monitor Present on Admission?: Yes (7) HTN (hypertension): Blood pressure stable. -Continue Carvedilol -Continue to monitor Present on Admission?: Yes (8) HLD (hyperlipidemia): Chronic -Continue Atorvastatin Present on Admission?: Yes (9) CAD (coronary artery disease): Chronic. No chest pain. No EKG evidence of ischemia -Continue ASA, Statin and Carvedilol (10) Morbid obesity with BMI of 45.0-49.9, adult: Encourage lifestyle modification F/E/N- NSS at 125mL/hr, electrolyte abnormalities as discussed above, CC/Heart healthy diet Ppx - low risk for DVT Code - Full Dispo -Admit to medical floor Present on Admission?: Yes History of Present Illness Chief Complaint: "run down" Primary Care Provider: Idris Moreno MD Juan Carlos Dutta is a 49yo C male with history of a poorly controlled DM, HTN/HLP/CAD/nonischemic CM and morbid obesity presenting with diffuse weakness, fatigue and feeling run down for the last week. He was seen by his PCP yesterday with the above complaints. He was found to have three fluctuant abscesses on the posterior neck. Patient with history of MRSA skin infections in the past. PCP performed I&D of the largest abscess, patient was started on Bactrim and Cefuroxime and recommended to use warm compresses at home. He returns today with consistent complaints of weakness and fatigue. He denies fevers/chills/sweats/nausea/vomiting/diarrhea or constipation. He denies abdominal pain/dysuria. Patient takes Bumex 2mg po daily as needed for LE edema. He typically uses it once weekly. However, over the last week he has been taking it daily. Last dose was yesterday. ER Course: Cefepime, KCL 10mEq, NSS x 1 L, Vanc 2.75gm Allergies Allergy/AdvReac Type Severity Reaction Status Date / Time No Known Allergies Allergy Verified 08/10/19 11:52 Home Medications Home Medications Medication Instructions Recorded Confirmed Type Lantus Solostar U-100 Insulin 60 unit SUBCUT QAM 04/03/18 08/10/19 History aspirin 81 mg PO QAM 04/03/18 08/10/19 History pen needle, diabetic [BD #10 ea 02/18/19 08/09/19 Rx Ultra-Fine [place] Pen Needle] acidophilus-pectin, citrus 1 cap PO QAM 03/09/19 08/10/19 History blood sugar diagnostic #10 ea 04/12/19 08/09/19 History bumetanide 2 mg tablet 2 mg PO DAILY PRN tab 04/12/19 08/10/19 History lancets 30 gauge #25 ea 04/12/19 08/09/19 History pen needle, diabetic 32 gauge x #50 ea 04/12/19 08/09/19 History 1/4" pen needle, diabetic 32 gauge x #50 ea 04/12/19 08/09/19 History 1/4" metolazone 5 mg tablet 5 mg PO DAILY PRN #30 tab 04/21/19 08/10/19 Rx carvedilol 6.25 mg tablet 6.25 mg PO BID #180 tab 07/26/19 08/10/19 Rx tramadol 50 mg tablet 50 mg PO BID PRN #60 tab 07/31/19 08/10/19 Rx insulin lispro 100 unit/mL 3.5 units SQ .COMPLEX #15 ml 08/08/19 08/10/19 Rx subcutaneous pen cefuroxime axetil 500 mg tablet 500 mg PO BID 14 Days #28 tab 08/09/19 08/10/19 Rx sulfamethoxazole 800 1 tab PO BID 14 Days #28 tab 08/09/19 08/10/19 Rx mg-trimethoprim 160 mg tablet atorvastatin [Lipitor] 20 mg PO QAM 08/10/19 08/10/19 History pantoprazole 40 mg PO QAM 08/10/19 08/10/19 History Past Med/Surg History Medical History Acquired claw toe of left foot (Acute) Acquired claw toe of right foot (Acute) Acquired hammer toe of right foot (Acute) CHF (congestive heart failure) Chronic back pain (Chronic) CKD (chronic kidney disease) Diabetes (Chronic) Diabetes mellitus with diabetic polyneuropathy (Acute) Diabetic gastroparesis (Chronic) Diabetic peripheral neuropathy GERD (gastroesophageal reflux disease) (Chronic) Hammertoe of left foot (Acute) HLD (hyperlipidemia) (Chronic) HTN (hypertension) (Chronic) Hx MRSA infection (Chronic) Leg abscess Morbid obesity with BMI of 45.0-49.9, adult (Chronic) Myocardial infarction Non-ischemic cardiomyopathy Peripheral edema (Chronic) Restless leg syndrome Skin ulcer of left foot including toes (Acute) Surgical History Hx of cardiac cath Hx of colonoscopy Hx of hand surgery Family History Other No significant family history Social History Preferred Language: Syriac Communication Ability: Effective Visual Impairment: No Limitations Hearing Ability: Normal Movie Extra Required: No Beliefs That Will Affect Care: None marital status: Single Current Living Situation: Parent current occupational status: employed Other Information That Helps Us Care for You: No Feels Safe at Home: Yes Safety Concerns: Feels Safe At This Time Smoking Status: Never smoker Hx Alcohol Use: No Hx Substance Use: No Review of Systems Review of Systems: All systems reviewed & are unremarkable except as noted in HPI & below +Cough/congestion Physical Exam Physical Exam: General: morbidly obese patient resting comfortably, NAD, non- toxic in appearance, AA&O x 4 Skin: warm, dry, intact, +abscess on posterior neck open with thick drainage, dressing in place HEENT: NC/AT, PERRL, EOMI, anicteric sclera, conjunctiva without injection, external ear normal to inspection and nontender, nares patent, moist mucus membranes, dentition intact, no oropharyngeal lesions, neck supple, trachea midline, no LAD, no thyromegaly, no JVD Heart: +S1/S2, regular, no m/r/g Lungs: equal air entry bilaterally, no rales/rhonchi/wheezes Abd: +BS, soft, NT/ND, no masses/organomegaly/ascites Ext: warm, 2+ pulses in UE/LE bilaterally, no clubbing/cyanosis or edema Neuro: nonfocal, patient AA&O x 4, speech intact, no facial droop, moving all extremities on command with equal strength 5/5 Results & Data Vital Signs (Past 12 Hours) Vital Signs Temp Pulse Pulse Resp BP BP Pulse Ox 08/10/19 12:41 81 18 137/83 99 08/10/19 10:49 36.8 C 88 22 137/81 95 Laboratory Results Lab Results 08/10/19 08/10/19 08/10/19 Range/Units 11:45 11:45 11:45 WBC 11.01 H (4.8-10.8) K/uL RBC 5.06 (4.7-6.1) M/uL Hgb 14.8 (14.0-18.0) g/dL Hct 42.6 (42-52) % MCV 84.2 (80-100) fL MCH 29.2 (25-34) pg MCHC 34.7 (32-36) g/dL RDW Std Deviation 39.8 (36.4-46.3) fL RDW Coeff of [place] 13.4 (11.5-14.5) % Plt Count 213 (130-400) K/uL MPV 9.7 (7.4-10.4) fL Immature Gran % (Auto) 0.2 % Neut % (Auto) 76.5 % Lymph % (Auto) 16.0 % [place] % (Auto) 5.7 % Eos % (Auto) 1.3 % Baso % (Auto) 0.3 % Immature Gran # (Auto) 0.02 (0.00-0.02) K/uL Neut # (Auto) 8.43 H (1.4-6.5) K/uL Lymph # (Auto) 1.76 (1.2-3.4) K/uL [place] # (Auto) 0.63 H (0.11-0.59) K/uL Eos # (Auto) 0.14 (0-0.5) K/uL Baso # (Auto) 0.03 (0-0.2) K/uL ESR 63 H (0-14) mm/hr Sodium 128 L (136-145) mmol/L Potassium 2.5 L* (3.5-5.1) mmol/L Chloride 81 L (98-107) mmol/L Carbon Dioxide 39 H (21-32) mmol/L Anion Gap 8.0 (3-11) BUN 71 H (7-18) mg/dl Creatinine 2.31 H (0.6-1.4) mg/dl Est Cr Clr Drug Dosing 53.5 ml/min Est GFR ( Amer) 37.1 Est GFR (Non-Af Amer) 32.0 BUN/Creatinine Ratio 30.7 H (10-20) Glucose 224 H (70-99) mg/dl Lactate (0.4-2.0) mmol/L Calcium 9.3 (8.5-10.1) mg/dl Total Bilirubin 0.7 (0.2-1) mg/dl AST 18 (15-37) U/L ALT 20 (12-78) U/L Alkaline Phosphatase 113 (45-117) U/L Troponin I < 0.015 (0-0.045) ng/ml C-Reactive Protein 1.78 H (0-0.29) mg/dl Total Protein 8.7 H (6.4-8.2) gm/dl Albumin 3.5 (3.4-5.0) gm/dl Globulin 5.2 H (2.5-4.0) gm/dl Albumin/Globulin Ratio 0.7 L (0.9-2) Influenza Type A (PCR) (Neg) Influenza Type B (PCR) (Neg) 08/10/19 08/10/19 Range/Units 11:45 12:05 WBC (4.8-10.8) K/uL RBC (4.7-6.1) M/uL Hgb (14.0-18.0) g/dL Hct (42-52) % MCV (80-100) fL MCH (25-34) pg MCHC (32-36) g/dL RDW Std Deviation (36.4-46.3) fL RDW Coeff of [place] (11.5-14.5) % Plt Count (130-400) K/uL MPV (7.4-10.4) fL Immature Gran % (Auto) % Neut % (Auto) % Lymph % (Auto) % Swift % (Auto) % Eos % (Auto) % Baso % (Auto) % Immature Gran # (Auto) (0.00-0.02) K/uL Neut # (Auto) (1.4-6.5) K/uL Lymph # (Auto) (1.2-3.4) K/uL Swift # (Auto) (0.11-0.59) K/uL Eos # (Auto) (0-0.5) K/uL Baso # (Auto) (0-0.2) K/uL ESR (0-14) mm/hr Sodium (136-145) mmol/L Potassium (3.5-5.1) mmol/L Chloride (98-107) mmol/L Carbon Dioxide (21-32) mmol/L Anion Gap (3-11) BUN (7-18) mg/dl Creatinine (0.6-1.4) mg/dl Est Cr Clr Drug Dosing ml/min Est GFR ( Amer) Est GFR (Non-Af Amer) BUN/Creatinine Ratio (10-20) Glucose (70-99) mg/dl Lactate 1.2 (0.4-2.0) mmol/L Calcium (8.5-10.1) mg/dl Total Bilirubin (0.2-1) mg/dl AST (15-37) U/L ALT (12-78) U/L Alkaline Phosphatase (45-117) U/L Troponin I (0-0.045) ng/ml C-Reactive Protein (0-0.29) mg/dl Total Protein (6.4-8.2) gm/dl Albumin (3.4-5.0) gm/dl Globulin (2.5-4.0) gm/dl Albumin/Globulin Ratio (0.9-2) Influenza Type A (PCR) Neg for Influ A (Neg) Influenza Type B (PCR) Neg for Influ B (Neg) Diagnostic Findings XR chest 1V portable HISTORY: 49 years-old Male Not feeling well acute weakness COMPARISON: Chest radiograph 02/17/2019 TECHNIQUE: Portable AP view of the chest FINDINGS: Cardiac silhouette is enlarged, unchanged. Unchanged mild right hemidiaphragm elevation with mild linear right basilar atelectasis/scarring. No pneumothorax, pleural effusion or overt pulmonary edema. No airspace consolidation typical for pneumonia. IMPRESSION: 1. Unchanged right hemidiaphragm elevation with right lung base scarring/atelectasis. 2. Cardiomegaly. ACT 112: Negative or not required by law. The above report was generated using voice recognition software. It may contain grammatical, syntax or spelling errors. Electronically signed by: Lawson Zaragoza M.D. 08/10/2019 11:59 AM Dictated: 08/10/19 1155 Transcribed: 08/10/19 1155 US extremity non-vascular ltd CLINICAL HISTORY: L posterior shoulder cellulitis vs. abscess COMPARISON STUDY: No previous studies for comparison. FINDINGS: Ultrasonic evaluation of the posterior neck primarily on the left shows moderately edematous tissue throughout. There is a 2.6 x 0.7 cm slightly complex collection. This potentially represents a small abscess. IMPRESSION: 1. Generalized soft tissue edematous change. 2. Potential small 2.6 x 0.7 cm collection/abscess ACT 112: Negative or not required by law. The above report was generated using voice recognition software. It may contain grammatical, syntax or spelling errors. Electronically signed by: Kendall Ewing M.D. 08/10/2019 12:37 PM Dictated: 08/10/19 1236 Transcribed: 08/10/19 1236 ECG Additional Comments: The study shows NSR at 82 bpm, LAD, no acute ischemic c hanges Code Status & VTE Plan Code Status FULL PG Care Time/CCT Total # of Minutes Spent Total Time Spent with Patient: Total time spent is greater than 50% in coordination of care (as documented) at patient's floor/unit and/or counseling patient: Coding Level of Care Code 92827 Initial Inpt Care Lvl 3 Diagnoses ZAIRE (acute kidney injury) N17.9 Hyponatremia E87.1 Hypokalemia E87.6 Skin abscess L02.212 Site of cutaneous abscess: trunk Site of cutaneous abscess of trunk: back Chronic diastolic CHF (congestive heart failure) I50.32 Diabetes E11.628 Diabetes mellitus complication detail: with other skin complication Diabetes mellitus complication status: with skin complications Diabetes mellitus assisted insulin use: unspecified intermediate project manager insulin use status Diabetes mellitus type: type 2 HTN (hypertension) I10 Hypertension type: essential hypertension HLD (hyperlipidemia) E78.5 Hyperlipidemia type: unspecified CAD (coronary artery disease) I25.10 Coronary Disease-Associated Artery/Lesion type: [place] artery [place] vs. transplanted heart: [place] heart Associated angina: without angina Morbid obesity with BMI of 45.0-49.9, adult E66.01; Z68.42 (1) Skin abscess Site of cutaneous abscess: trunk Site of cutaneous abscess of trunk: back Qualified Code(s): L02.212 - Cutaneous abscess of back [any part, except buttock] (2) Diabetes Diabetes mellitus complication detail: with other skin complication Diabetes mellitus complication status: with skin complications Diabetes mellitus intermediate project manager insulin use: unspecified assisted insulin use status Diabetes mellitus type: type 2 Qualified Code(s): E11.628 - Type 2 diabetes mellitus with other skin complications (3) HTN (hypertension) Hypertension type: essential hypertension Qualified Code(s): I10 - Essential (primary) hypertension (4) HLD (hyperlipidemia) Hyperlipidemia type: unspecified Qualified Code(s): E78.5 - Hyperlipidemia, unspecified (5) CAD (coronary artery disease) Coronary Disease-Associated Artery/Lesion type: [place] artery [place] vs. transplanted heart: [place] heart Associated angina: without angina Qualified Code(s): I25.10 - Atherosclerotic heart disease of [place] coronary artery without angina pectoris
[2019-08-10] MEDS ORDERED: GLUCOSE 10 TABS/TUBE PO PRN (15:15)
[2019-08-10] MEDS ORDERED: GLUCOSE 40% GEL 15 GM TUBE PO PRN (15:15)
[2019-08-10] MEDS ORDERED: DEXTROSE 50% 50 ML SYRINGE IV PRN (15:15)
[2019-08-10] MEDS ORDERED: VANCOMYCIN HCL 1,000 MG in SODIUM CHLORIDE 0.9% 250 ML IV SCH (15:15)
[2019-08-10] MEDS ORDERED: ACETAMINOPHEN 325 MG TAB PO PRN (15:15)
[2019-08-10] MEDS ORDERED: CARBOHYDRATES FOR HYPOGLYCEMIA PO PRN (15:15)
[2019-08-10] MEDS ORDERED: GLUCAGON FOR INJ 1 MG VIAL SQ PRN (15:15)
[2019-08-10] MEDS ORDERED: POTASSIUM CHLORIDE 20 MEQ TABCR PO STA (15:35)
--- NOTE | 2019-08-10 15:37 | Pharmacy Report ---
Pharmacy Abx Initial Consult - Date of Service August 10, 2019 - Pharmacy Dosing Scope Date of Consult: 08/10 Consultation requested by: Dr. Willard Pharmacy is consulted to initiate vancomycin IV/PO dosing therapy, order appropriate labs and adjust drug dose/frequency. - Subjective The patient is a 49 year old M admitted on 08/10/19 13:56. - Objective Height: 5 ft 8 in Weight: 142 kg Vital Signs (Past 12hrs): Vital Signs Temp Pulse Pulse Resp BP BP Pulse Ox 08/10/19 14:00 84 18 136/72 97 08/10/19 12:41 81 18 137/83 99 08/10/19 10:49 36.8 C 88 22 137/81 95 Lab Results (24hrs): Laboratory Tests (24 Hours) 08/10/19 08/10/19 08/10/19 11:45 11:45 11:45 WBC 11.01 H Neut # (Auto) 8.43 H ESR 63 H Creatinine 2.31 H Est Cr Clr Drug Dosing 53.5 C-Reactive Protein 1.78 H Micro Results: 08/10/19 11:50 Aerobic Blood Culture - Pending Blood Anaerobic Blood Culture - Pending 08/10/19 11:45 Aerobic Blood Culture - Pending Blood Anaerobic Blood Culture - Pending - Risk Factors for Resistance * History of infection with a multidrug-resistant organism: [MRSA/group B strep - wound cx's 04/2019] * Antimicrobial use within the last 90 days [bactrim and cefuroxime] - Assessment & Plan Assessment 49 year old admitted with possible abscess. History of recurrent MRSA skin lesions. Started on vancomycin. Blood cultures x 2 are pending. Vancomycin IV * Received loading dose of vancomycin 2750 mg (~19 mg/kg) x 1 in the ED * Will start vancomyicn 1500 mg (~11 mg/kg) iv q 16 hrs to achieve estimated trough of ~15 mcg/ml * Estimated kinetics: t1/2~14 hrs, ke~0.05 hr-1, CrCl ~53 ml/min * Appears Scr elevated from baseline Scr of 2.0 mg/dL * Patient with BMI >/=35 kg/m2 therefore at increased risk for accumulation with vancomycin. Will monitor closely and try to deescalate as soon as possible Pharmacy will continue to follow and will adjust dose/frequency as necessary. Thank you.
[2019-08-10] MEDS ORDERED: POTASSIUM CHLORIDE 20 MEQ in SODIUM CHLORIDE 0.9% 1000ML 1,000 ML IV SCH (16:00)
[2019-08-10 16:21] LABS: BUN Creatinine Ratio 29.9 (10-20); Calcium 8.9 mg/dl (8.5-10.1); Creatinine Clr Calc Pharmacy 57.5 ml/min; Est GFR (African American) 40.4; Est GFR (Non-African American) 34.9; Magnesium 2.1 mg/dl (1.8-2.4); Potassium 2.7 mmol/L (3.5-5.1)
[2019-08-10] MEDS: INSULIN HUMAN LISPRO (humaLOG) 100 UNITS/ML VIAL SC SCH (17:17)
--- NOTE | 2019-08-10 17:39 | Electrocardiogram Report ---
Test Reason : Blood Pressure : / mmHG Vent. Rate : 082 BPM Atrial Rate : 082 BPM P-R Int : 194 ms QRS Dur : 112 ms QT Int : 434 ms P-R-T Axes : 024 -44 039 degrees QTc Int : 507 ms Normal sinus rhythm Left axis deviation Poor R wave progression, consider anterior SC vs. lead placement vs. LVH Prolonged QT Abnormal ECG When compared with ECG of 17-FEB-2019 00:15, No significant change was found Confirmed by Kodi Cramer ([id number]) on 08/10/2019 5:39:24 PM Referred By: REFERRED SELF Confirmed By:Edson Cramer
[2019-08-10 17:56] LABS: Appearance Urine Cloudy (Clear); Bacteria Urine Automated Negative (Negative); Bilirubin Urine Negative (Negative); Blood Urine Negative (Negative); Color Urine Yellow; Epithelial Cell Urine Auto 20-30 /lpf (0-5); Glucose Urine UA Negative (Negative); Ketones Urine Negative (Negative); Leukocyte Esterase Urine Negative (Negative); Nitrite Urine Negative (Negative); Protein Urine Trace (Negative); RBC Urine Automated 0-4 /hpf (0-4); Specific Gravity Urine 1.011 (1.000-1.030); Urobilinogen Urine Negative (Negative); WBC Urine Automated 0 /hpf (0-5); pH Urine 5.5 (4.5-7.5)
[2019-08-10 18:17] LABS: Sodium Random Urine 32 mmol/L; Urea Nitrogen, Urine Random 633 mg/dl
[2019-08-10] MEDS: carvediloL 6.25 MG TAB PO SCH (21:28)
[2019-08-11] MEDS ORDERED: VANCOMYCIN HCL 1,500 MG in SODIUM CHLORIDE 0.9% 500 ML IV SCH (06:00)
[2019-08-11 06:26] LABS: Basophils # (auto) 0.02 K/uL (0-0.2); Basophils % (auto) 0.2 %; Eosinophils # (auto) 0.14 K/uL (0-0.5); Eosinophils % (auto) 1.6 %; Hemoglobin 13.2 g/dL (14.0-18.0); Immature Granulocytes # (auto) 0.02 K/uL (0.00-0.02); Immature Granulocytes % (auto) 0.2 %; Lymphocytes # (auto) 0.86 K/uL (1.2-3.4); Lymphocytes % (auto) 9.7 %; Mean Corpuscular Hemoglobin 28.8 pg (25-34); Mean Corpuscular Hgb Conc 33.8 g/dL (32-36); Mean Corpuscular Volume 85.2 fL (80-100); Mean Platelet Volume 9.8 fL (7.4-10.4); Monocytes # (auto) 0.56 K/uL (0.11-0.59); Monocytes % (auto) 6.3 %; Neutrophils # (auto) 7.23 K/uL (1.4-6.5); Platelet Count 201 K/uL (130-400); RDW Coefficient of Variation 13.5 % (11.5-14.5); RDW Standard Deviation 41.9 fL (36.4-46.3); Red Blood Count 4.58 M/uL (4.7-6.1); White Blood Count 8.83 K/uL (4.8-10.8)
[2019-08-11 06:56] LABS: BUN Creatinine Ratio 28.6 (10-20); Calcium 8.8 mg/dl (8.5-10.1); Creatinine Clr Calc Pharmacy 70.3 ml/min; Est GFR (African American) 51.5; Est GFR (Non-African American) 44.4; Estimated Average Glucose 275 mg/dl; Hemoglobin A1C 11.2 % (4.5-5.6); Potassium 2.7 mmol/L (3.5-5.1)
[2019-08-11] MEDS: INSULIN HUMAN LISPRO (humaLOG) 100 UNITS/ML VIAL SC SCH ×2 (07:55→12:27)
[2019-08-11] MEDS: PANTOprazole 40 MG TAB PO SCH (07:56)
[2019-08-11] MEDS: LACTOBACILLUS ACIDOPHILUS (FLORANEX) TAB PO SCH (07:56)
[2019-08-11] MEDS: carvediloL 6.25 MG TAB PO SCH ×2 (07:57→20:41)
[2019-08-11] MEDS: ASPIRIN 81 MG ECTAB PO SCH (07:58)
[2019-08-11] MEDS ORDERED: ATORVASTATIN 20 MG TAB PO SCH (09:00)
[2019-08-11] MEDS ORDERED: INSULIN GLARGINE SOLOSTAR 100 UNITS/ML 3 ML PEN SQ SCH (09:00)
[2019-08-11] MEDS: POTASSIUM CHLORIDE / WTR 10 MEQ/100 ML PLCT IV SCH ×4 (11:18→15:21)
[2019-08-11] MEDS ORDERED: DAPTOMYCIN CONSULT ACTIVE PRN (14:10)
[2019-08-11] MEDS ORDERED: PHARMACY GLYCEMIC MGMT CONSULT PRN (14:14)
--- NOTE | 2019-08-11 14:48 | Pharmacy Report ---
Pharmacy Glycemic Short Note 2 - Date of Service August 11, 2019 - Glycemic Short BSG Results (Last 24 hours): 08/10/19 08/10/19 08/10/19 15:41 16:40 19:57 Glucose 149 H POC Glucose 178 H 177 H 08/11/19 08/11/19 08/11/19 05:51 07:51 11:37 Glucose 152 H POC Glucose 163 H 232 H OUTPATIENT ANTIDIABETIC REGIMEN: * Lantus 60 units SC qAM * Humalog 3.5 units ?TIDM ASSESSMENT: * 49 yo F admitted with ZAIRE * Home regimen heavily weighted towards basal - may cause hypoglycemia if po intake changes during inpatient stay * Will initiate loose parameters of Novolog today * Will significantly decrease Lantus tomorrow and then tighten Novolog parameters starting tomorrow AM PLAN FOR INPATIENT GLYCEMIC CONTROL: Today * Bolus insulin * NovoLog per scale ACHS or Q6hrs while NPO * Goal Range: Low 120 mg/dL - High 150 mg/dL * Correction Factor: 35 mg/dL/unit * Nutritional / Prandial insulin per carb ratio of 1 unit per 12 grams CHO consumed Starting tomorrow * Basal insulin * Lantus 25-45 units SQ qAM based on BSG * Bolus insulin * NovoLog per scale ACHS or Q6hrs while NPO * Goal Range: Low 120 mg/dL - High 150 mg/dL * Correction Factor: 20 mg/dL/unit * Nutritional / Prandial insulin per carb ratio of 1 unit per 7 grams CHO consumed
[2019-08-11] MEDS: DAPTOmycin 400 MG in SYRINGE 0 ML IV SCH (16:41)
[2019-08-11] MEDS: POTASSIUM CHLORIDE 20 MEQ TABCR PO SCH ×2 (16:42→20:40)
[2019-08-11] MEDS: INSULIN ASPART 100 UNITS/ML 3 ML PEN SC SCH ×2 (18:04→20:41)
[2019-08-11 19:11] LABS: BUN Creatinine Ratio 23.8 (10-20); Calcium 9.1 mg/dl (8.5-10.1); Creatinine Clr Calc Pharmacy 68.3 ml/min; Est GFR (African American) 49.8; Est GFR (Non-African American) 42.9; Potassium 3.4 mmol/L (3.5-5.1)
[2019-08-11] MEDS: TRAMADOL HCL 50 MG TABLET PO PRN (20:47)
--- NOTE | 2019-08-11 23:49 | Hospitalist Progress Note ---
Date of Service August 11, 2019 Assessment & Plan (1) ZAIRE (acute kidney injury): Patient with CKD, baseline Cr appx 2. Presents today with Cr = 2.31 in setting of frequent diuretic use. Suspect prerenal etiology. Patient received 2L NSS in the ER. -Continue IVF for now as creatining has improved -Avoid nephrotoxic agents -Renal dosing where needed (2) Hyponatremia: Pd=878. Most likely secondary to diuretic losses improved to 134 (3) Hypokalemia: continue to replace. will monitor. 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 Most likely pathogen in this case as well -due to ZAIRE, will switch to daptomycin. -Hold Cefuoxime and Bactrim in favor of IV while inpatient -Warm compresses -Tramadol as needed for pain -Contact precautions -Patient may need additional I/D with packing if abscesses fail to improve (5) Chronic diastolic CHF (congestive heart failure): Patient appears volume contracted at present, most likely secondary to diuretic use -Continue Carvedilol -Hold diuretics (6) Diabetes: Blood sugar presently 224 -Continue home insulin use, Lantus 60 units daily -Novolog with meals -Continue to monitor (7) HTN (hypertension): Blood pressure stable. -Continue Carvedilol -Continue to monitor (8) HLD (hyperlipidemia): Chronic -Continue Atorvastatin (9) CAD (coronary artery disease): Chronic. No chest pain. No EKG evidence of ischemia -Continue ASA, Statin and Carvedilol (10) Morbid obesity with BMI of 45.0-49.9, adult: Encourage lifestyle modification Ppx - low risk for DVT Code - Full Subjective Patient reports feeling well. He has no new complaints at this time. Review of Systems Review of Systems: All systems reviewed & are unremarkable except as noted in HPI & below Physical Exam Physical Exam: General: morbidly obese patient resting comfortably, NAD, non- toxic in appearance, AA&O x 4 Skin: warm, dry, intact, +abscess on posterior neck open with dressing in place HEENT: NC/AT, PERRL, EOMI, anicteric sclera, neck supple, trachea midline, no LAD, no thyromegaly, no JVD Heart: +S1/S2, regular, no m/r/g Lungs: equal air entry bilaterally, no rales/rhonchi/wheezes Abd: +BS, soft, NT/ND, no masses/organomegaly/ascites Ext: warm, 2+ pulses in UE/LE bilaterally, no clubbing/cyanosis or edema Neuro: nonfocal, patient AA&O x 4, speech intact, no facial droop, moving all extremities on command with equal strength 5/5 Results & Data ([facility]) Vital Signs (Past 12 Hours) Vital Signs Temp Pulse Pulse Resp BP Pulse Ox 08/11/19 19:34 37.0 C 84 17 116/69 92 08/11/19 15:36 89 08/11/19 15:05 37 C 83 20 135/79 93 PG Care Time/CCT Total # of Minutes Spent Total Time Spent with Patient: Total time spent is greater than 50% in coordination of care (as documented) at patient's floor/unit and/or counseling patient: Coding Level of Care Code 63384 Subseq Hosp Care Lvl 3 Diagnoses ZAIRE (acute kidney injury) N17.9 Hyponatremia E87.1 Hypokalemia E87.6 Skin abscess L02.212 Site of cutaneous abscess: trunk Site of cutaneous abscess of trunk: back Chronic diastolic CHF (congestive heart failure) I50.32 Diabetes E11.628 Diabetes mellitus complication detail: with other skin complication Diabetes mellitus complication status: with skin complications Diabetes mellitus interior decorator paperhanging insulin use: unspecified care home insulin use status Diabetes mellitus type: type 2 HTN (hypertension) I10 Hypertension type: essential hypertension HLD (hyperlipidemia) E78.5 Hyperlipidemia type: unspecified CAD (coronary artery disease) I25.10 Associated angina: without angina Coronary Disease-Associated Artery/Lesion type: [place] artery [place] vs. transplanted heart: [place] heart Morbid obesity with BMI of 45.0-49.9, adult E66.01; Z68.42 Time Spent (min) 35 (1) Skin abscess Site of cutaneous abscess: trunk Site of cutaneous abscess of trunk: back Qualified Code(s): L02.212 - Cutaneous abscess of back [any part, except buttock] (2) Diabetes Diabetes mellitus complication detail: with other skin complication Diabetes mellitus complication status: with skin complications Diabetes mellitus interior decorator paperhanging insulin use: unspecified care home insulin use status Diabetes mellitus type: type 2 Qualified Code(s): E11.628 - Type 2 diabetes mellitus with other skin complications (3) CAD (coronary artery disease) Associated angina: without angina Coronary Disease-Associated Artery/Lesion type: [place] artery [place] vs. transplanted heart: [place] heart Qualified Code(s): I25.10 - Atherosclerotic heart disease of [place] coronary artery without angina pectoris (4) HLD (hyperlipidemia) Hyperlipidemia type: unspecified Qualified Code(s): E78.5 - Hyperlipidemia, unspecified (5) HTN (hypertension) Hypertension type: essential hypertension Qualified Code(s): I10 - Essential (primary) hypertension
[2019-08-12 07:35] LABS: Creatinine Clr Calc Pharmacy 80.3 ml/min; Est GFR (African American) 60.5; Est GFR (Non-African American) 52.2
[2019-08-12] MEDS: POTASSIUM CHLORIDE 20 MEQ TABCR PO SCH ×3 (07:36→21:15)
[2019-08-12] MEDS: PANTOprazole 40 MG TAB PO SCH (07:36)
[2019-08-12] MEDS: carvediloL 6.25 MG TAB PO SCH ×2 (07:37→21:15)
[2019-08-12] MEDS: LACTOBACILLUS ACIDOPHILUS (FLORANEX) TAB PO SCH (07:37)
[2019-08-12] MEDS: ASPIRIN 81 MG ECTAB PO SCH (07:37)
[2019-08-12] MEDS: INSULIN ASPART 100 UNITS/ML 3 ML PEN SC SCH ×4 (08:22→21:16)
[2019-08-12] MEDS: INSULIN GLARGINE SOLOSTAR 100 UNITS/ML 3 ML PEN SC SCH (08:22)
[2019-08-12 10:16] LABS: Potassium 3.1 mmol/L (3.5-5.1)
[2019-08-12] MEDS: DAPTOmycin 400 MG in SYRINGE 0 ML IV SCH (15:54)
[2019-08-12] MEDS ORDERED: LACTATED RINGER'S 1,000 ML IV SCH (16:45)
--- NOTE | 2019-08-12 23:00 | Hospitalist Progress Note ---
Date of Service August 12, 2019 Assessment & Plan (1) ZAIRE (acute kidney injury): Patient with CKD, baseline Cr appx 2. Presents today with Cr = 2.31 in setting of frequent diuretic use. Suspect prerenal etiology. Patient received 2L NSS in the ER. -creat improved to 1.5, will give another liter of IVF. -Avoid nephrotoxic agents -Renal dosing where needed (2) Hyponatremia: Ho=700. Most likely secondary to diuretic losses remained at 134 on 08/12 (3) Hypokalemia: continue to replace. will monitor. 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 Most likely pathogen in this case as well -due to ZAIRE, will switch to daptomycin. -Hold Cefuoxime and Bactrim in favor of IV while inpatient -Warm compresses -Tramadol as needed for pain -Contact precautions -will consult Gen surgery for an I and D. (5) Chronic diastolic CHF (congestive heart failure): Patient appears volume contracted at present, most likely secondary to diuretic use -Continue Carvedilol -Hold diuretics (6) Diabetes: Blood sugar presently 224 -Continue home insulin use, Lantus 60 units daily -Novolog with meals -Continue to monitor (7) HTN (hypertension): Blood pressure stable. -Continue Carvedilol -Continue to monitor (8) HLD (hyperlipidemia): Chronic -Continue Atorvastatin (9) CAD (coronary artery disease): Chronic. No chest pain. No EKG evidence of ischemia -Continue ASA, Statin and Carvedilol (10) Morbid obesity with BMI of 45.0-49.9, adult: Encourage lifestyle modification Ppx - low risk for DVT Code - Full Had extensive discussion with patient as he wanted to be discharged, however, his wound needs to be incised and drained. will monitor. Subjective 49 yo male reports feeling well. He has no new complaints. Review of Systems Review of Systems: All systems reviewed & are unremarkable except as noted in HPI & below Physical Exam Physical Exam: General: morbidly obese patient resting comfortably, NAD, non- toxic in appearance, AA&O x 4 Skin: warm, dry, intact, +abscess on posterior neck open with dressing in place HEENT: NC/AT, PERRL, EOMI, anicteric sclera, neck supple, trachea midline, no LAD, no thyromegaly, no JVD Heart: +S1/S2, regular, no m/r/g Lungs: equal air entry bilaterally, no rales/rhonchi/wheezes Abd: +BS, soft, NT/ND, no masses/organomegaly/ascites Ext: warm, 2+ pulses in UE/LE bilaterally, no clubbing/cyanosis or edema Neuro: nonfocal, patient AA&O x 4, speech intact, no facial droop, moving all extremities on command with equal strength 5/5 Results & Data ([facility]) Vital Signs (Past 12 Hours) Vital Signs Temp Pulse Resp BP Pulse Ox 08/12/19 14:24 36.6 C 76 18 149/85 H 94 PG Care Time/CCT Total # of Minutes Spent Total Time Spent with Patient: Total time spent is greater than 50% in coordination of care (as documented) at patient's floor/unit and/or counseling patient: Coding Level of Care Code 18953 Subseq Hosp Care Lvl 3 Diagnoses ZAIRE (acute kidney injury) N17.9 Hyponatremia E87.1 Hypokalemia E87.6 Skin abscess L02.212 Site of cutaneous abscess: trunk Site of cutaneous abscess of trunk: back Chronic diastolic CHF (congestive heart failure) I50.32 Diabetes E11.628 Diabetes mellitus complication detail: with other skin complication Diabetes mellitus complication status: with skin complications Diabetes mellitus terminologist insulin use: unspecified mcfp insulin use status Diabetes mellitus type: type 2 HTN (hypertension) I10 Hypertension type: essential hypertension HLD (hyperlipidemia) E78.5 Hyperlipidemia type: unspecified CAD (coronary artery disease) I25.10 Associated angina: without angina Coronary Disease-Associated Artery/Lesion type: [place] artery [place] vs. transplanted heart: [place] heart Morbid obesity with BMI of 45.0-49.9, adult E66.01; Z68.42 Time Spent (min) 35 (1) Skin abscess Site of cutaneous abscess: trunk Site of cutaneous abscess of trunk: back Qualified Code(s): L02.212 - Cutaneous abscess of back [any part, except buttock] (2) Diabetes Diabetes mellitus complication detail: with other skin complication Diabetes mellitus complication status: with skin complications Diabetes mellitus mcfp insulin use: unspecified mcfp insulin use status Diabetes mellitus type: type 2 Qualified Code(s): E11.628 - Type 2 diabetes mellitus with other skin complications (3) CAD (coronary artery disease) Associated angina: without angina Coronary Disease-Associated Artery/Lesion type: [place] artery [place] vs. transplanted heart: [place] heart Qualified Code(s): I25.10 - Atherosclerotic heart disease of [place] coronary artery without angina pectoris (4) HLD (hyperlipidemia) Hyperlipidemia type: unspecified Qualified Code(s): E78.5 - Hyperlipidemia, unspecified (5) HTN (hypertension) Hypertension type: essential hypertension Qualified Code(s): I10 - Essential (primary) hypertension
[2019-08-13 07:45] LABS: BUN Creatinine Ratio 23.8 (10-20); Calcium 9.3 mg/dl (8.5-10.1); Creatinine Clr Calc Pharmacy 84.7 ml/min; Est GFR (African American) 64.5; Est GFR (Non-African American) 55.7; Potassium 3.5 mmol/L (3.5-5.1)
[2019-08-13] MEDS: PANTOprazole 40 MG TAB PO SCH (07:45)
[2019-08-13] MEDS: carvediloL 6.25 MG TAB PO SCH ×2 (07:45→20:42)
[2019-08-13] MEDS: ASPIRIN 81 MG ECTAB PO SCH (07:45)
[2019-08-13] MEDS: POTASSIUM CHLORIDE 20 MEQ TABCR PO SCH (07:45)
[2019-08-13] MEDS: LACTOBACILLUS ACIDOPHILUS (FLORANEX) TAB PO SCH (07:45)
[2019-08-13] MEDS: INSULIN ASPART 100 UNITS/ML 3 ML PEN SC SCH ×4 (08:16→22:02)
[2019-08-13] MEDS: INSULIN GLARGINE SOLOSTAR 100 UNITS/ML 3 ML PEN SC SCH (08:18)
[2019-08-13] MEDS ORDERED: LIDOCAINE HCL 1% 20 ML VIAL ONE (10:20)
--- NOTE | 2019-08-13 11:44 | Operative Report ---
Post Operative Report Pre & Post Diagnosis upper neck abscesses x 2, history of MRSA and superior abscess drainage recently I identified the patient and participated in the time-out.: Yes Procedure incision and drainage of posterior upper neck abscesses x 2 at bedside Surgeon Katelyn Nam MD Food Service Helper none Estimated Blood Loss 1 Findings Consistent with Post-Op Diagnosis no significant pus but superior abscess contained necrotic tissue. Inferior abscess had necrotic tissue superiorly and small amount (<1 cc) of pus inferiorly Fluids none Specimens none Drains none Anesthesia Type Local Complications none Disposition Accompanied Patient To Recovery: Yes (done at bedside) Indications 49 yr old man with history of MRSA and multiple prior skin abscesses admitted for acute kidney injury and found to have two abscesses upper posterior neck. Superior one had been drained recently, inferior was getting more tender. On exam, superior abscess contains fibrinous necrotic 1 cm center,no flucutance, erythema/ induration about 3 cm lummi. Inferior abscess is elongated with eschar superiorly, tender, indurated. Verbal consent obtained for bedside drainage. Description of Procedure Both areas were anesthetized with 1% lidocaine after the area was prepped with betadine. The necrotic tissue at the center of the superior site was debrided and the wound irrigated/ packed with iodoform. The inferior area was incised from the eschar inferiorly. A small 1 cc pocket of pus was expressed. Necrotic tissue superiorly was debrided. Wound was irrigated and packed. Sterile dressing applied. Tolerated well. I attest to the content of the Intraoperative Record and any orders documented therein. Any exceptions are noted below.
[2019-08-13] MEDS: TRAMADOL HCL 50 MG TABLET PO PRN (12:32)
--- NOTE | 2019-08-13 14:43 | Pharmacy Report ---
Pharmacy Glycemic Short Note 2 - Date of Service August 13, 2019 - Glycemic Short BSG Results (Last 24 hours): 08/12/19 08/12/19 08/13/19 16:06 20:07 06:47 Glucose 143 H POC Glucose 140 H 173 H 08/13/19 08/13/19 07:47 11:18 Glucose POC Glucose 138 H 174 H OUTPATIENT ANTIDIABETIC REGIMEN: * Lantus 60 units SC qAM * Humalog 3.5 units ?TIDM ASSESSMENT: 08/13/19 * Incision and drainage of posterior upper neck abscesses x 2 at bedside today, patient remains on IV daptomycin * Blood sugars at goal overall, but some rise with meals, will tighten CR 08/11/19 * 49 yo F admitted with ZAIRE * Home regimen heavily weighted towards basal - may cause hypoglycemia if po intake changes during inpatient stay * Will initiate loose parameters of Novolog today * Will significantly decrease Lantus tomorrow and then tighten Novolog parameters starting tomorrow AM PLAN FOR INPATIENT GLYCEMIC CONTROL: * Basal insulin * Lantus SQ QAM based on blood sugar * BSG < 120mg/dl - 40 units * BSG 120mg/dl or more - 50 units * Bolus insulin * NovoLog per scale ACHS or Q6hrs while NPO * Goal Range: Low 110 mg/dL - High 140 mg/dL * Correction Factor: 20 mg/dL/unit * tighten: Nutritional / Prandial insulin per carb ratio of 1 unit per 6 grams CHO consumed DISCHARGE RECOMMENDATIONS: * A1c 11.2% 08/11/19 - goal <7.0% * Regimen very highly basal, would recommend splitting doses to more of a 50/50 regimen to help with post prandial blood sugars and improving A1c: * Lantus 40 units daily * Humalog 10 units with meals
[2019-08-13] MEDS: SULFAMETHOXAZOLE/TRIMETHOPRIM DS 800/160MG TAB PO SCH (20:42)
--- NOTE | 2019-08-13 23:53 | Hospitalist Progress Note ---
Date of Service August 13, 2019 Assessment & Plan (1) ZAIRE (acute kidney injury): Patient with CKD, baseline Cr appx 2. Presents today with Cr = 2.31 in setting of frequent diuretic use. Suspect prerenal etiology. Patient received 2L NSS in the ER. -creat improved to 1.4, will repeat in AM.. -Avoid nephrotoxic agents -Renal dosing where needed (2) Hyponatremia: Admission: Vx=851. Most likely secondary to diuretic losses Improved at 136 on 08/12 (3) Hypokalemia: continue to replace. will monitor. 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 Most likely pathogen in this case as well -due to ZAIRE, will switch to daptomycin. -Hold Cefuoxime and Bactrim in favor of IV while inpatient -Warm compresses -Tramadol as needed for pain -Contact precautions -will consult Gen surgery for an I and D which was performed on 08/13 Will have packing removed on 08/14. (5) Chronic diastolic CHF (congestive heart failure): Patient appears volume contracted at present, most likely secondary to diuretic use -Continue Carvedilol -Hold diuretics (6) Diabetes: Blood sugar presently 224 -Continue home insulin use, Lantus 60 units daily -Novolog with meals -Continue to monitor (7) HTN (hypertension): Blood pressure stable. -Continue Carvedilol -Continue to monitor (8) HLD (hyperlipidemia): Chronic -Continue Atorvastatin (9) CAD (coronary artery disease): Chronic. No chest pain. No EKG evidence of ischemia -Continue ASA, Statin and Carvedilol (10) Morbid obesity with BMI of 45.0-49.9, adult: Encourage lifestyle modification Ppx - low risk for DVT Code - Full Ok to discharge after packing is removed and wound care is setup. Subjective Patient reports feeling well. He tolerated the procedure. He reports no new symptoms. Review of Systems Review of Systems: All systems reviewed & are unremarkable except as noted in HPI & below Physical Exam Physical Exam: General: morbidly obese patient resting comfortably, NAD, non- toxic in appearance, AA&O x 4 Skin: warm, dry, intact, +abscess on posterior neck open with dressing in place HEENT: NC/AT, PERRL, EOMI, anicteric sclera, neck supple, trachea midline, no LAD, no thyromegaly, no JVD Heart: +S1/S2, regular, no m/r/g Lungs: equal air entry bilaterally, no rales/rhonchi/wheezes Abd: +BS, soft, NT/ND, no masses/organomegaly/ascites Ext: warm, 2+ pulses in UE/LE bilaterally, no clubbing/cyanosis or edema Neuro: nonfocal, patient AA&O x 4, speech intact, no facial droop, moving all extremities on command with equal strength 5/5 Results & Data ([facility]) Vital Signs (Past 12 Hours) Vital Signs Temp Pulse Resp BP Pulse Ox 08/13/19 20:40 84 119/74 08/13/19 16:00 36.7 C 87 20 158/84 H 94 PG Care Time/CCT Total # of Minutes Spent Total Time Spent with Patient: Total time spent is greater than 50% in coordination of care (as documented) at patient's floor/unit and/or counseling patient: Coding Level of Care Code 99208 Subseq Hosp Care Lvl 2 Diagnoses ZAIRE (acute kidney injury) N17.9 Hyponatremia E87.1 Hypokalemia E87.6 Skin abscess L02.212 Site of cutaneous abscess: trunk Site of cutaneous abscess of trunk: back Chronic diastolic CHF (congestive heart failure) I50.32 Diabetes E11.628 Diabetes mellitus complication detail: with other skin complication Diabetes mellitus complication status: with skin complications Diabetes mellitus senior care insulin use: unspecified senior care insulin use status Diabetes mellitus type: type 2 HTN (hypertension) I10 Hypertension type: essential hypertension HLD (hyperlipidemia) E78.5 Hyperlipidemia type: unspecified CAD (coronary artery disease) I25.10 Associated angina: without angina Coronary Disease-Associated Artery/Lesion type: [place] artery [place] vs. transplanted heart: [place] heart Morbid obesity with BMI of 45.0-49.9, adult E66.01; Z68.42 Time Spent (min) 25 (1) Skin abscess Site of cutaneous abscess: trunk Site of cutaneous abscess of trunk: back Qualified Code(s): L02.212 - Cutaneous abscess of back [any part, except buttock] (2) Diabetes Diabetes mellitus complication detail: with other skin complication Diabetes mellitus complication status: with skin complications Diabetes mellitus senior care insulin use: unspecified terminal superintendent insulin use status Diabetes mellitus type: type 2 Qualified Code(s): E11.628 - Type 2 diabetes mellitus with other skin complications (3) CAD (coronary artery disease) Associated angina: without angina Coronary Disease-Associated Artery/Lesion type: [place] artery [place] vs. transplanted heart: [place] heart Qualified Code(s): I25.10 - Atherosclerotic heart disease of [place] coronary artery without angina pectoris (4) HLD (hyperlipidemia) Hyperlipidemia type: unspecified Qualified Code(s): E78.5 - Hyperlipidemia, unspecified (5) HTN (hypertension) Hypertension type: essential hypertension Qualified Code(s): I10 - Essential (primary) hypertension
[2019-08-14] MEDS: PANTOprazole 40 MG TAB PO SCH (08:28)
[2019-08-14] MEDS: ASPIRIN 81 MG ECTAB PO SCH (08:28)
[2019-08-14] MEDS: carvediloL 6.25 MG TAB PO SCH (08:28)
[2019-08-14] MEDS: INSULIN GLARGINE SOLOSTAR 100 UNITS/ML 3 ML PEN SC SCH (08:29)
[2019-08-14] MEDS: SULFAMETHOXAZOLE/TRIMETHOPRIM DS 800/160MG TAB PO SCH (08:29)
[2019-08-14] MEDS: LACTOBACILLUS ACIDOPHILUS (FLORANEX) TAB PO SCH (08:29)
[2019-08-14] MEDS: INSULIN ASPART 100 UNITS/ML 3 ML PEN SC SCH ×2 (08:31→12:28)
--- NOTE | 2019-08-14 11:32 | Surgery Progress Note ---
Date of Service August 14, 2019 Assessment & Plan (1) Skin abscess: POD # 1 s/p incision and drainage and debridement of two posterior neck abscess. + MRSA with culture. -afebrile - pain improved Plan: Okay from surgical standpoint for discharge with oral bactrim for MRSA coverage. Given necrotic tissue debridement and fibrinous tissue at base of wounds, recommend follow-up with wound clinic for further treatment f/u surgical office prn Subjective feeling well this morning has had previous skin abscess/MRSA infections. Followed with wound clinic in the past. no increase in pain no fever or chills Physical Exam Constitutional: WD/WN, vitals as above + obese; no acute distress Respiratory: normal respiratory effort; no respiratory distress Skin: no rashes, warm and dry Posterior neck with dressing present: Serosanguineous/bloody drainage on dressing. Dressing removed. Two wounds with packing present. Some fibrinous tissue present at base of wounds. No fluctuance palpate Minimally tender. Psychiatric: A+Ox3, euthymic affect Results & Data Vital Signs (Past 12 Hours) Vital Signs Temp Pulse Resp BP Pulse Ox 08/14/19 07:00 37.0 C 88 16 144/79 H 95 08/14/19 00:16 36.9 C 91 H 20 113/76 94 Laboratory Results 08/14/19 08/13/19 08/13/19 Range/Units 07:31 20:57 16:39 POC Glucose 200 H 135 H 122 H (70-99) mg/dl 08/13/19 Range/Units 11:18 POC Glucose 174 H (70-99) mg/dl (1) Skin abscess Site of cutaneous abscess: other site Qualified Code(s): L02.818 - Cutaneous abscess of other sites
--- NOTE | 2019-08-14 12:21 | Pharmacy Report ---
Pharmacy Glycemic Short Note 2 - Date of Service August 14, 2019 - Glycemic Short BSG Results (Last 24 hours): 08/13/19 08/13/19 08/14/19 16:39 20:57 07:31 POC Glucose 122 H 135 H 200 H 08/14/19 11:24 POC Glucose 212 H OUTPATIENT ANTIDIABETIC REGIMEN: * Lantus 60 units SC qAM * Humalog 3.5 units ?TIDM ASSESSMENT: 08/14/19 * Fasting elevated this morning with reduced lantus 40 units, did increase with scale back up to 60 units this morning- will recommend 50 units daily on discharge with increased novolog dosing with meals * Anticipate discharge 08/13/19 * Incision and drainage of posterior upper neck abscesses x 2 at bedside today, patient remains on IV daptomycin * Blood sugars at goal overall, but some rise with meals, will tighten CR 08/11/19 * 49 yo F admitted with ZAIRE * Home regimen heavily weighted towards basal - may cause hypoglycemia if po intake changes during inpatient stay * Will initiate loose parameters of Novolog today * Will significantly decrease Lantus tomorrow and then tighten Novolog parameters starting tomorrow AM PLAN FOR INPATIENT GLYCEMIC CONTROL: * Basal insulin * Lantus 60 units this morning * Bolus insulin * NovoLog per scale ACHS or Q6hrs while NPO * Goal Range: Low 110 mg/dL - High 140 mg/dL * Correction Factor: 20 mg/dL/unit * tighten: Nutritional / Prandial insulin per carb ratio of 1 unit per 6 grams CHO consumed DISCHARGE RECOMMENDATIONS: * A1c 11.2% 08/11/19 - goal <7.0% * Regimen very highly basal, would recommend splitting doses to more of a 50/50 regimen to help with post prandial blood sugars and improving A1c: * Lantus 50 units daily * Humalog 10 units with meals * Restart metformin xr 500 mg
--- NOTE | 2019-08-15 14:15 | Discharge Summary ---
Date of Service August 14, 2019 Admission HPI Per Admitting Provider Juan Carlos Dutta is a 49yo C male with history of a poorly controlled DM, HTN/HLP/CAD/nonischemic CM and morbid obesity presenting with diffuse weakness, fatigue and feeling run down for the last week. He was seen by his PCP yesterday with the above complaints. He was found to have three fluctuant abscesses on the posterior neck. Patient with history of MRSA skin infections in the past. PCP performed I&D of the largest abscess, patient was started on Bactrim and Cefuroxime and recommended to use warm compresses at home. He returns today with consistent complaints of weakness and fatigue. He denies fevers/chills/sweats/nausea/vomiting/diarrhea or constipation. He denies abdominal pain/dysuria. Patient takes Bumex 2mg po daily as needed for LE edema. He typically uses it once weekly. However, over the last week he has been taking it daily. Last dose was yesterday. ER Course: Cefepime, KCL 10mEq, NSS x 1 L, Vanc 2.75gm Principal Diagnosis ZAIRE from overdiuresis Discharge Exam Constitutional WD/WN, vitals as above + obese; no acute distress Respiratory normal respiratory effort; no respiratory distress Skin no rashes, warm and dry Psychiatric A+Ox3, euthymic affect Discharge Data Allergies Allergy/AdvReac Type Severity Reaction Status Date / Time No Known Allergies Allergy Verified 08/10/19 11:52 Consultations 08/10/19 13:00 ED Decision to Admit Stat 08/12/19 16:42 Consult General Surgery Routine Ordered Studies 08/10/19 11:28 US extremity non-vascular ltd Stat Hospital Course (1) ZAIRE (acute kidney injury): Patient with CKD, baseline Cr appx 2. Presented with Cr = 2.31 in setting of frequent diuretic use. - Creat improved to 1.46 on discharge. - Likely due to overdiuresis. Counseled to discuss with PCP/cardiology if he starts to need to use the Lasix more than weekly and to measure his weights to prevent dehydration. (2) Skin abscess: Patient with history of MRSA skin lesions in the past. Most likely pathogen in this case as well. - I and D performed on 08/13. - Packing removed on 08/14. Will follow up with [facility]. - Discharged back on Bactrim DS BID as his Cr was back to baseline. Will need BMP in 1-2 weeks with PCP. (3) Hyponatremia: Admission: [id number]. Most likely secondary to diuretic losses. Improved at 136 on 08/12. (4) Chronic diastolic CHF (congestive heart failure): Patient appears volume contracted at present, most likely secondary to diuretic use. - Continue Carvedilol - Held diuretics -> Discharged with instruction to only use sparingly. If he has to use it more, he should contact his PCP. (5) Diabetes: - Continue home insulin use, Lantus 60 units daily - Novolog with meals - Restarted metformin and switched to Novolog for costs considerations on discharge. (6) HTN (hypertension): Blood pressure stable. -Continue Carvedilol -Continue to monitor (7) HLD (hyperlipidemia): Chronic -Continue Atorvastatin (8) CAD (coronary artery disease): Chronic. No chest pain. No EKG evidence of ischemia -Continue ASA, Statin and Carvedilol (9) Morbid obesity with BMI of 45.0-49.9, adult: Encourage lifestyle modification Total Time Total Time Spent Total Time Spent (In Minutes): 35 Discharge Plan Discharge Items Patient Disposition: Home - Self-Care Reason For Visit: ELECTROLYTE ABNORMALITY, ZAIRE Discharge Diagnosis: Acute kidney failure, neck infection Activity: Resume your previous activity Non-emergency contact: Primary Care Provider Call non-emergency contact if: you have any medication questions Follow-up/Referrals: Idris Moreno III, MD [Primary Care Provider] - 08/17/19 1:45 pm (Please, follow up with Dr. Moreno on August 17 at 1:45 pm. *If you need to change this appointment, call the office at [phone].) Arline Castro CRNP [Nurse Practitioner] - Diet: Carb Consistent or DM2 Addtl Attending Provider Instructions: Mr. Dutta, You were admitted with a kidney issue after probably getting somewhat dehydrated after taking your Bumex more than your usual dosing. Your usual weight seems to be around 320 lbs by our hospital scales and you came in around 312 lbs. Taking the water weight off with the Bumex and metolazone can cause you to get dehydrated which we think happened in this case. You have not been on the Bumex in the days you were in the hospital, and I would encourage you to see Dr. Moreno in his office if you feel you need to start taking it again. We also found an abscess in your neck on the left side that ended up needing an incision and drainage while in the hospital. Dr. Nam did this on Wednesday. They changed the packing out and recommend you see the [facility] this week. The number is listed on this discharge paperwork. Finally, the diabetic pharmacist felt you should use 10 units of short-acting insulin (lispro/Humalog) with each meal. Your sugars are usually ok in the morning, but go up after eating, so we need to work on the meal-time dosing of your insulin. Please call your PCP or the [facility] if you have any fevers, chills, the area of the incision is getting redder, hotter, or draining more pus. Pending Studies at Discharge: No Stand-Alone Forms: My [facility] [employer], Smoking Cessation Medications and DC Order Prescriptions: New insulin aspart U-100 100 unit/mL (3 mL) insulin pen 10 units SQ TID Qty: 15 RF: 0 metformin 1,000 mg tablet,ER gregorio.retention 24 hr 1,000 mg PO DAILY Qty: 30 RF: 0 Continued carvedilol 6.25 mg tablet 6.25 mg PO BID Qty: 180 RF: 1 tramadol 50 mg tablet 50 mg PO BID PRN (Reason: pain) Qty: 60 RF: 0 acidophilus-pectin, citrus 1 cap PO QAM RF: 0 (DME) OneTouch Verio strip See Dose Instructions .ROUTE .MEDSUPPLY Qty: 10 RF: 0 (DME) pen needle, diabetic [Unifine Pentips] 32 gauge x 1/4" needle See Dose Instructions .ROUTE .MEDSUPPLY Qty: 50 RF: 0 (DME) pen needle, diabetic [BD Ultra-Fine Micro Pen Needle] 32 gauge x 1/4" needle See Dose Instructions .ROUTE .MEDSUPPLY Qty: 50 RF: 0 (DME) lancets [OneTouch Delica Lancets] 30 gauge misc See Dose Instructions .ROUTE .MEDSUPPLY Qty: 25 RF: 0 bumetanide 2 mg tablet 2 mg PO DAILY PRN (Reason: Weight Gain) RF: 0 sulfamethoxazole-trimethoprim [Bactrim DS] 800-160 mg tablet 1 tab PO BID 14 Days Qty: 28 RF: 0 metolazone 5 mg tablet 5 mg PO DAILY PRN (Reason: weight gain) Qty: 30 RF: 5 aspirin 81 mg Tablet,Delayed Release (Dr/Ec) 81 mg PO QAM RF: 0 Lantus Solostar U-100 Insulin 100 unit/mL (3 mL) Insulin Pen 60 unit SUBCUT QAM RF: 0 (DME) pen needle, diabetic [BD Ultra-Fine [place] Pen Needle] 32 gauge x 5/32" needle See Dose Instructions .ROUTE .MEDSUPPLY Qty: 10 RF: 0 atorvastatin [Lipitor] 20 mg tablet 20 mg PO QAM RF: 0 pantoprazole 40 mg tablet,delayed release (DR/EC) 40 mg PO QAM RF: 0 Discontinued insulin lispro [Humalog KwikPen Insulin] 100 unit/mL insulin pen 3.5 units SQ .COMPLEX Qty: 15 RF: 2 cefuroxime axetil 500 mg tablet 500 mg PO BID 14 Days Qty: 28 RF: 0 Discharge Orders: Discharge Order (Routine); Ordered 08/14/19 Ordered By: Iftikhar Hernandez/Other Patient Handouts: Diabetes Type 2 Coping, Diabetes Healthy Meals, Diabetes Meal Planning Admission Data Admit Date/Time: 08/10/19 13:56 Attending Provider: Iftikhar Baig Admit Provider: Amanda Willard Primary Care Provider: Idris Moreno III Other Providers: Juan Carlos Riojas ; Sanjeev Cervantes ; Ye Davis ; Sky Greer Jr ; Yohan Clayton ; Sridhar Boucher ; Kandi Powell ; Randal Gonzalez ; Iftikhar Baig Other Interventions: Discharge Summary Assessment (RN) Last Done: 08/14/19 12:45 DC Date/Time DO NOT enter until pt leaves facility: 08/14/19 13:56 Coding Level of Care Code D/C Day Management >30 mins Diagnoses ZAIRE (acute kidney injury) N17.9 Skin abscess L02.212 Site of cutaneous abscess: trunk Site of cutaneous abscess of trunk: back Hyponatremia E87.1 Chronic diastolic CHF (congestive heart failure) I50.32 Diabetes E11.628 Diabetes mellitus complication detail: with other skin complication Diabetes mellitus complication status: with skin complications Diabetes mellitus oysterman insulin use: unspecified oysterman insulin use status Diabetes mellitus type: type 2 HTN (hypertension) I10 Hypertension type: essential hypertension HLD (hyperlipidemia) E78.5 Hyperlipidemia type: unspecified CAD (coronary artery disease) I25.10 Coronary Disease-Associated Artery/Lesion type: [place] artery [place] vs. transplanted heart: [place] heart Associated angina: without angina Morbid obesity with BMI of 45.0-49.9, adult E66.01; Z68.42
== END 2019-08-14 13:56 | disposition home or self-care (01) | DRG 683 ==
LOC: ED 10:40 → 2W 13:56 → SUATTDRO 13:56 → 2W 14:42

== ENCOUNTER 2019-12-14 13:27 | Inpatient (IN) ==
[2019-12-14] MEDS ORDERED: SODIUM CHLORIDE 0.9% 1000ML 500 ML IV ONE (13:42)
[2019-12-14] MEDS ORDERED: ACETAMINOPHEN 500 MG TAB PO STA (13:44)
--- NOTE | 2019-12-14 13:50 | Emergency Department Note ---
Impression & Plan SBO (small bowel obstruction), Diabetes mellitus type 2, insulin dependent, ZAIRE (acute kidney injury) ED Provider Note CHIEF COMPLAINT: Abdominal pain and diarrhea HISTORY OF PRESENTING ILLNESS: This is a 49-year-old male with past medical history significant for CAD, cardiomyopathy, chronic diastolic CHF, type 2 diabetes, chronic kidney disease, hypertension, hyperlipidemia, GERD and gregorio roparesis, who presents to the emergency department by private vehicle with complaint of diarrhea and diffuse abdominal pain that started yesterday. Patient states the diarrhea started shortly after the abdominal pain. His abdominal pain is diffuse across the middle and lower abdomen, he describes it as a dull pressure and rates it a 5/10. He has not tried any medications for his abdominal pain. He did take some diarrhea medicine today, and states the diarrhea has slowed down. He notes 4-5 episodes of diarrhea yesterday and again today. Diarrhea has been watery, he denies any bloody or black tarry stools. He denies any nausea or vomiting. He denies any fevers or chills. He denies an y chest pain, shortness of breath, cough or congestion. He denies any exposures concerning for COVID-19. He notes a history of gastroparesis and states he has had symptoms like this in the past, but feels it is just a lot worse than usual. He denies any recent antibiotics. REVIEW OF SYSTEMS: A complete 10 point review of systems was reviewed with the patient with pertinent positives and negatives as per history of present illness. All else were negative. PAST MEDICAL HISTORY: CAD, cardiomyopathy, chronic diastolic CHF, type 2 diabetes, chronic kidney disease, hypertension, hyperlipidemia, GERD SOCIAL HISTORY: Lives at home, denies tobacco use ALLERGIES: No known allergies PHYSICAL EXAM: CONSTITUTIONAL: Pleasant and cooperative. Nontoxic appearing and in no acute distress. Mildly dehydrated. Well appearing and well nourished. Appears older than stated age. HEENT: Normocephalic, atraumatic. PERRL, EOMI. Pharynx normal. Tacky mucous membranes. NECK: Supple, full active range of motion without discomfort. RESPIRATORY: Clear to auscultation bilaterally with no wheezing, crackles, rhonchi or stridor. Equal expansion bilaterally. CARDIOVASCULAR: Regular rate and rhythm with no murmurs, rubs or gallops. Normal peripheral perfusion. No edema. GASTROINTESTINAL: Diffusely tender to palpation throughout, slightly firm and distended, obese abdomen. No palpable masses or HSM. Bowel sounds present in all quadrants. No CVA tenderness bilaterally. MUSCULOSKELETAL: Full range of motion of all joints without discomfort. INTEGUMENTARY: No rash or other significant dermatologic conditions noted. NEUROLOGIC: Alert and oriented X 4 with normal affect. Normal strength and sensation in all 4 extremities. Normal speech. Normal gait observed. ED COURSE AND MEDICAL DECISION MAKING: CC: Patient presenting with complaint of abdominal pain and diarrhea DIFFERENTIAL DIAGNOSIS: Includes, but not limited to gastroenteritis, gastroparesis, infectious colitis, diverticulitis, small bowel obstruction, appendicitis, mesenteric adenitis, ACS, among others. INTERPRETATION OF LABS: No leukocytosis, no anemia, normal platelets, hyperglycemia with mild hyponatremia, no other significant electrolyte abnormalities, elevated BUN and creatinine above baseline concerning for ZAIRE, normal liver enzymes and lipase. Negative troponin. Beta hydroxybutyric acid within normal limits. IMAGING: CT SCAN OF THE ABDOMEN AND PELVIS WITHOUT IV CONTRAST CLINICAL HISTORY: Generalized abdominal pain. Diarrhea. COMPARISON STUDY: Lumbar spine radiographs dated 03/22/2017. TECHNIQUE: CT scan of the abdomen and pelvis is performed from the lung bases to the proximal femora. Images are reviewed in the axial, sagittal, and coronal planes. IV contrast was not administered for this examination due to chronic kidney disease. Note that the examination is suboptimal without IV contrast. Examination is also degraded by large body habitus, and streak artifact from the body wall abutting the CT gantry. A dose lowering technique was utilized adhering to the principles of ALARA. CT DOSE: 1284.64 mGycm FINDINGS: Lung bases: The heart is normal in size and without pericardial effusion. The coronary arteries are densely calcified. The lung bases are clear noting bibasilar scarring/atelectasis. Bilateral gynecomastia is noted. Fluid fills the distal esophagus. Liver: The unenhanced liver is normal in size, contour, and attenuation. There is no intrahepatic biliary ductal dilatation. Gallbladder: Unremarkable. Spleen: Normal in size and attenuation. Pancreas: There is near-complete fatty atrophy of the pancreas. Adrenal glands: Unremarkable. Kidneys: The left kidney is not identified and may be congenitally versus surgically absent. The unenhanced right kidney is normal in size and without hydronephrosis. There are no renal calculi identified. There is no evidence of contour deforming renal mass lesion. Abdominal vasculature: The abdominal aorta is normal in course and caliber noting mild atherosclerotic calcification. Stomach and bowel: The stomach is distended and fluid-filled. The proximal small bowel loops are markedly distended and fluid-filled with numerous air-fluid levels. Small bowel loops measure up to 4.4 cm in diameter. The distal small bowel loops are decompressed, end there is a questionable transition point in the lateral right lower quadrant on image #331. Findings consistent with a high- grade small bowel obstruction. No focally thick walled bowel is identified. There is no pneumatosis intestinalis or portal venous gas. There are scattered c olonic diverticula without CT evidence of acute diverticulitis. The appendix is well-visualized and normal. Peritoneum: There is no intraperitoneal free air or abdominal ascites. There is a large fat-containing umbilical hernia. Lymphadenopathy: None. Pelvic viscera: The bladder, prostate, and seminal vesicles are normal as imaged. Skeletal structures: The skeletal structures are osteopenic. Mild to moderate lumbosacral spondylosis is noted. No lytic or blastic lesions are seen. IMPRESSION: 1. Findings are consistent with a high-grade small bowel obstruction, with a possible transition point in the lateral right lower quadrant. This may be on the basis of adhesions, and surgical consultation is advised. 2. No intraperitoneal free air is seen. No focally thick walled or edematous b owel loops are identified. 3. Fluid fills the distal esophagus. Note that this may place the patient risk for aspiration. 4. A normal left kidney is not identified and presumed congenitally versus s urgically absent. Clinical correlation will be required. 5. The coronary arteries are densely calcified. Consider nonemergent cardiology follow-up. 6. Additional findings as above. EKG: Shows normal sinus rhythm with a rate of 97 bpm, left axis deviation, no ST or T wave abnormalities, no ectopy, QT has shortened no other significant changes when compared to previous EKG from 08/10/2019 by my interpretation. MEDICATION RECONCILIATION: I attest that I have personally reviewed the patient's current medication list. INITIAL VITAL SIGNS REVIEW: I reviewed the patient's initial vital signs and interpret them as follows: T: Afebrile; BP: Normotensive; HR: Tachycardic; RR: Within normal limits; Pulse Ox: Within normal limits on room air. Blood pressure screening: The patient was found to have normal blood pressure on screening and does not require follow-up for repeat blood pressure check. MDM SUMMARY: Patient was evaluated at bedside, history and physical exam performed. Patient is alert and oriented, in no acute distress, resting calmly in the stretcher. The abdomen is diffusely tender, slightly firm and distended, but no acute abdomen. Patient denies any nausea or vomiting. He states his diarrhea has stopped since taking Imodium. He is afebrile and nontoxic-appearing. He does appear mildly dehydrated. Cardiac monitoring: An order was placed for continuous cardiac monitoring. The monitor shows a rate of 94 bpm with normal sinus rhythm. He denies any history of previous abdominal surgeries. Orders were placed at bedside for labs, 500 mL NSS IV fluid bolus for conservative hydration due to history of CHF, EKG and troponin, CT abdomen/pelvis to evaluate for abdominal pain and diarrhea. Patient was offered something for pain, he did not want anything sedating and requested Tylenol which was given to him.. Patient was offered morphine for his pain, he declines because he wants to be able to drive home. He requested Tylenol which was ordered. Patient discussed with Dr. Gill, who agrees with my assessment, plan, and disposition. Labs and imaging reviewed as above, labs are notable for hyperglycemia and ZAIRE. Troponin is undetectable. He does not appear to be in DKA. 10 units of regular insulin were given for the hyperglycemia. CT abdomen/pelvis findings are consistent with a high-grade small bowel obstruction with transition point in the right lower quadrant, as well as fluid extending up to the distal esophagus. NG tube was ordered to be placed for aspiration precautions, low intermittent suction. I spoke on the phone with Kandi Grace PA-C with general surgery, who agrees to evaluate the patient and requested that he be admitted to the hospitalist medicine service due to his numerous medical problems. I spoke on the phone with Dr. Lewis, [facility] Hospitalist, who agrees to evaluate the patient for the admission. Patient reassessed multiple times throughout ED stay, he has remained hemodynamically stable and afebrile, denies any nausea or vomiting, but states his pain is not much improved after the Tylenol. He was given IV morphine at this time. The patient was updated on all results and plan for NG tube as well as admission and possible surgery, he verbalized understanding and was agreeable to this plan. The patient was stable at time of admission. The chart was completed utilizing [employer] Speech voice recognition software. Grammatical errors, random word insertions, pronoun errors, and incomplete sentences are an occasional consequence of this system due to software limitations, ambient noise, and hardware issues. Any formal questions or concerns about the content, text, or information contained within the body of this dictation should be directly addressed to the nurse practitioner for clarification. Past Med/Surg History Medical History Acquired claw toe of left foot (Acute) Acquired claw toe of right foot (Acute) Acquired hammer toe of right foot (Acute) Albuminuria CAD (coronary artery disease) (Chronic) Cardiomyopathy, nonischemic (Chronic) CHF (congestive heart failure) Chronic back pain (Chronic) CKD (chronic kidney disease) Diabetes (Chronic) Diabetes mellitus with diabetic polyneuropathy (Acute) Diabetic gastroparesis (Chronic) Diabetic peripheral neuropathy GERD (gastroesophageal reflux disease) (Chronic) Hammertoe of left foot (Acute) HLD (hyperlipidemia) (Chronic) HTN (hypertension) (Chronic) Hx MRSA infection (Chronic) Iron deficiency anemia Leg abscess Morbid obesity with BMI of 45.0-49.9, adult (Chronic) MRSA infection Myocardial infarction Non-ischemic cardiomyopathy Orthostatic hypotension Peripheral edema (Chronic) Restless leg syndrome Restless legs syndrome (Chronic) Skin abscess (Acute) Jul 2019, neck, s/p I&D with +MRSA culture Skin ulcer of left foot including toes (Acute) Surgical History Hx of cardiac cath Hx of colonoscopy Hx of hand surgery Family History Family/Other Colon cancer Father Hypertension Prostate cancer Diabetes Brother Diabetes Mother Diabetes Other No significant family history Social History Preferred Language: Slovenian Communication Ability: Effective Visual Impairment: Limited Hearing Ability: Normal Busboy Required: No Beliefs That Will Affect Care: None marital status: Single Current Living Situation: Parent current occupational status: employed Feels Safe at Home: Yes Smoking Status: Never smoker Hx Alcohol Use: No Hx Substance Use: No during the past year weight has: remained stable Allergies Allergies Allergy/AdvReac Type Severity Reaction Status Date / Time No Known Allergies Allergy Verified 12/14/19 15:04 Home Meds Home Medications Medication Instructions Recorded Confirmed Lantus Solostar U-100 Insulin 60 unit SUBCUT QAM 04/03/18 12/14/19 aspirin 81 mg PO QAM 04/03/18 12/14/19 acidophilus-pectin, citrus 1 cap PO QAM 03/09/19 12/14/19 lancets 30 gauge #25 ea 04/12/19 09/20/19 pen needle, diabetic 32 gauge x #50 ea 04/12/19 09/20/19 1/4" pen needle, diabetic 32 gauge x #50 ea 04/12/19 09/20/1907/15" atorvastatin [Lipitor] 20 mg PO QAM 08/10/19 12/14/19 pantoprazole 40 mg PO QAM 08/10/19 12/14/19 Previous Rx's Medication Instructions Recorded carvedilol 6.25 mg tablet 6.25 mg PO BID #180 tab 07/26/19 bumetanide 2 mg tablet 2 mg PO BID PRN #60 tab 09/25/19 insulin aspart U-100 100 unit/mL 10 units SQ TID #15 ml 10/05/19 (3 mL) subcutaneous pen blood sugar diagnostic #100 ea 10/31/19 pen needle, diabetic 32 gauge x #100 ea 11/[birth year]/1932" tramadol 50 mg tablet 50 mg PO BID PRN #60 tab 11/08/19 metolazone 5 mg tablet 5 mg PO DAILY PRN #30 tab 11/20/19 Results & Data (ED) Vital Signs Vital Signs - 24 hr 12/14/19 13:29 12/14/19 13:53 12/14/19 14:00 Temperature 37.2 C Temperature Source Oral Pulse Rate 108 H 96 H 95 H Pulse Rate from SpO2 Sensor 95 H Respiratory Rate 20 22 30 H Blood Pressure 115/75 105/63 Blood Pressure Mean 88 71 Pulse Oximetry 96 96 94 Oxygen Delivery Method Room Air Room Air Sepsis New/Unexplained Change in Mental Status No Sepsis Action Taken by Nursing No Action Required 12/14/19 15:00 12/14/19 15:30 Temperature Temperature Source Pulse Rate 93 H 90 Pulse Rate from SpO2 Sensor 93 H Respiratory Rate 25 H 14 Blood Pressure 164/137 H 142/79 H Blood Pressure Mean 149 95 Pulse Oximetry 92 Oxygen Delivery Method Sepsis New/Unexplained Change in Mental Status Sepsis Action Taken by Nursing Laboratory Data Result diagrams: 12/14/19 14:16 12/14/19 14:16 Lab Results 12/14/19 12/14/19 12/14/19 Range/Units 13:58 14:16 14:16 WBC 8.87 (4.8-10.8) K/uL RBC 5.80 (4.7-6.1) M/uL Hgb 15.8 (14.0-18.0) g/dL Hct 47.9 (42-52) % MCV 82.6 (80-100) fL MCH 27.2 (25-34) pg MCHC 33.0 (32-36) g/dL RDW Std Deviation 41.1 (36.4-46.3) fL RDW Coeff of Soledad 13.8 (11.5-14.5) % Plt Count 225 (130-400) K/uL MPV 10.0 (7.4-10.4) fL Immature Gran % (Auto) 0.2 % Neut % (Auto) 83.3 % Lymph % (Auto) 8.1 % Haralson % (Auto) 7.6 % Eos % (Auto) 0.7 % Baso % (Auto) 0.1 % Immature Gran # (Auto) 0.02 (0.00-0.02) K/uL Neut # (Auto) 7.39 H (1.4-6.5) K/uL Lymph # (Auto) 0.72 L (1.2-3.4) K/uL Haralson # (Auto) 0.67 H (0.11-0.59) K/uL Eos # (Auto) 0.06 (0-0.5) K/uL Baso # (Auto) 0.01 (0-0.2) K/uL Sodium 131 L (136-145) mmol/L Potassium 4.6 (3.5-5.1) mmol/L Chloride 102 (98-107) mmol/L Carbon Dioxide 21 (21-32) mmol/L Anion Gap 9.0 (3-11) BUN 42 H (7-18) mg/dl Creatinine 2.39 H (0.6-1.4) mg/dl Est Cr Clr Drug Dosing 53.6 ml/min Est GFR ( Amer) 35.6 Est GFR (Non-Af Amer) 30.7 BUN/Creatinine Ratio 17.4 (10-20) Glucose 330 H* (70-99) mg/dl POC Glucose 322 H* (70-99) mg/dl Calcium 9.6 (8.5-10.1) mg/dl Total Bilirubin 0.5 (0.2-1) mg/dl AST 20 (15-37) U/L ALT 26 (12-78) U/L Alkaline Phosphatase 112 (45-117) U/L Troponin I < 0.015 (0-0.045) ng/ml Total Protein 8.8 H (6.4-8.2) gm/dl Albumin 3.6 (3.4-5.0) gm/dl Globulin 5.2 H (2.5-4.0) gm/dl Albumin/Globulin Ratio 0.7 L (0.9-2) Lipase 80 (73-393) U/L Beta-Hydroxybutyric Acd 1.24 (0.2-2.81) mg/dl Administered Medications Sodium Chloride (Nss 1000ml) 1,000 mls @ 100 mls/hr IV .Q10H STEVE Stop: 12/15/19 04:34 Last Admin: 12/14/19 18:41 Dose: 100 mls/hr Documented by: [id number] Discontinued Medications Acetaminophen (Tylenol) 1,000 mg PO NOW STA Stop: 12/14/19 13:45 Last Admin: 12/14/19 14:35 Dose: 1,000 mg Documented by: [id number] Sodium Chloride (Nss 1000ml) 500 mls @ 999 mls/hr IV .Q31M ONE Stop: 12/14/19 14:12 Last Infusion: 12/14/19 15:30 Dose: 0 mls/hr Documented by: [id number] Admin: 12/14/19 14:35 Dose: 999 mls/hr Documented by: [id number] Insulin Human Regular (Novolin R) 10 units SC NOW STA Stop: 12/14/19 15:22 Last Admin: 12/14/19 16:43 Dose: Not Given Documented by: [id number] Cosigned by: [id number] Insulin Human Regular (Novolin R U-100 Per Unit) Confirm Administered Dose 10 units .ROUTE .STK-MED ONE Stop: 12/14/19 16:29 Last Admin: 12/14/19 16:32 Dose: 10 units Documented by: [id number] Cosigned by: [id number] Morphine Sulfate (Morphine Sulfate) 4 mg IV NOW STA Stop: 12/14/19 15:11 Last Admin: 12/14/19 15:30 Dose: 4 mg Documented by: [id number] Discharge Plan Visit Data *Final* Discharge Date/Time: 12/14/19 17:36 Chief Complaint: Abdominal Pain Stated Complaint: AB PAIN ED Provider: Satish Gill ED Midlevel Provider: Lisha Brink Discharge Problem: SBO (small bowel obstruction), Diabetes mellitus type 2, insulin dependent, ZAIRE (acute kidney injury) Patient Disposition: Admitted As Inpatient Discharge Instructions Interventions: ED Discharge Assessment Last Done: 12/14/19 17:36
[2019-12-14 14:27] LABS: Basophils # (auto) 0.01 K/uL (0-0.2); Basophils % (auto) 0.1 %; Eosinophils # (auto) 0.06 K/uL (0-0.5); Eosinophils % (auto) 0.7 %; Hematocrit (blood only) 47.9 % (42-52); Hemoglobin 15.8 g/dL (14.0-18.0); Immature Granulocytes # (auto) 0.02 K/uL (0.00-0.02); Immature Granulocytes % (auto) 0.2 %; Lymphocytes # (auto) 0.72 K/uL (1.2-3.4); Lymphocytes % (auto) 8.1 %; Mean Corpuscular Hemoglobin 27.2 pg (25-34); Mean Corpuscular Volume 82.6 fL (80-100); Monocytes # (auto) 0.67 K/uL (0.11-0.59); Monocytes % (auto) 7.6 %; Neutrophils # (auto) 7.39 K/uL (1.4-6.5); Neutrophils % (auto) 83.3 %; Platelet Count 225 K/uL (130-400); RDW Coefficient of Variation 13.8 % (11.5-14.5); RDW Standard Deviation 41.1 fL (36.4-46.3); White Blood Count 8.87 K/uL (4.8-10.8)
[2019-12-14 14:48] LABS: Alanine Aminotransferase 26 U/L (12-78); Albumin Level 3.6 gm/dl (3.4-5.0); Aspartate Aminotransferase 20 U/L (15-37); BUN Creatinine Ratio 17.4 (10-20); Blood Urea Nitrogen 42 mg/dl (7-18); Calcium 9.6 mg/dl (8.5-10.1); Carbon Dioxide 21 mmol/L (21-32); Chloride 102 mmol/L (98-107); Creatinine Clr Calc Pharmacy 53.6 ml/min; Est GFR (African American) 35.6; Est GFR (Non-African American) 30.7; Glucose 330 mg/dl (70-99); Lipase 80 U/L (73-393); Potassium 4.6 mmol/L (3.5-5.1); Sodium 131 mmol/L (136-145)
--- NOTE | 2019-12-14 14:49 | CT Scan Report ---
CT SCAN OF THE ABDOMEN AND PELVIS WITHOUT IV CONTRAST CLINICAL HISTORY: Generalized abdominal pain. Diarrhea. COMPARISON STUDY: Lumbar spine radiographs dated 03/22/2017. TECHNIQUE: CT scan of the abdomen and pelvis is performed from the lung bases to the proximal femora. Images are reviewed in the axial, sagittal, and coronal planes. IV contrast was not administered for this examination due to chronic kidney disease. Note that the examination is suboptimal without IV c ontrast. Examination is also degraded by large body habitus, and streak artifact from the body wall a butting the CT gantry. A dose lowering technique was utilized adhering to the principles of ALARA. CT DOSE: 1284.64 mGycm FINDINGS: Lung bases: The heart is normal in size and without pericardial effusion. The coronary arteries are d ensely calcified. The lung bases are clear noting bibasilar scarring/atelectasis. Bilateral gynecomas tia is noted. Fluid fills the distal esophagus. Liver: The unenhanced liver is normal in size, contour, and attenuation. There is no intrahepatic zen iary ductal dilatation. Gallbladder: Unremarkable. Spleen: Normal in size and attenuation. Pancreas: There is near-complete fatty atrophy of the pancreas. Adrenal glands: Unremarkable. Kidneys: The left kidney is not identified and may be congenitally versus surgically absent. The unen hanced right kidney is normal in size and without hydronephrosis. There are no renal calculi identifi ed. There is no evidence of contour deforming renal mass lesion. Abdominal vasculature: The abdominal aorta is normal in course and caliber noting mild atheroscleroti c calcification. Stomach and bowel: The stomach is distended and fluid-filled. The proximal small bowel loops are dhruv edly distended and fluid-filled with numerous air-fluid levels. Small bowel loops measure up to 4.4 c m in diameter. The distal small bowel loops are decompressed, end there is a questionable transition point in the lateral right lower quadrant on image #331. Findings consistent with a high-grade small bowel obstruction. No focally thick walled bowel is identified. There is no pneumatosis intestinalis or portal venous gas. There are scattered colonic diverticula without CT evidence of acute diverticul itis. The appendix is well-visualized and normal. Peritoneum: There is no intraperitoneal free air or abdominal ascites. There is a large fat-containin g umbilical hernia. Lymphadenopathy: None. Pelvic viscera: The bladder, prostate, and seminal vesicles are normal as imaged. Skeletal structures: The skeletal structures are osteopenic. Mild to moderate lumbosacral spondylosis is noted. No lytic or blastic lesions are seen. IMPRESSION: 1. Findings are consistent with a high-grade small bowel obstruction, with a possible transition poin t in the lateral right lower quadrant. This may be on the basis of adhesions, and surgical consultati on is advised. 2. No intraperitoneal free air is seen. No focally thick walled or edematous bowel loops are identifi ed. 3. Fluid fills the distal esophagus. Note that this may place the patient risk for aspiration. 4. A normal left kidney is not identified and presumed congenitally versus surgically absent. Clinica l correlation will be required. 5. The coronary arteries are densely calcified. Consider nonemergent cardiology follow-up. 6. Additional findings as above. ACT 112: Positive. There are findings on this exam that require communication between the performing entity and the patient following Patient Test Result Information Act ([place] Act 112) guidelines. Electronically signed by: Iker Hinton M.D. 12/14/2019 2:47 PM
[2019-12-14 14:50] LABS: Albumin Globulin Ratio 0.7 (0.9-2); Alkaline Phosphatase 112 U/L (45-117); Bilirubin,Total 0.5 mg/dl (0.2-1); Globulin 5.2 gm/dl (2.5-4.0); Total Protein 8.8 gm/dl (6.4-8.2); Troponin I < 0.015 ng/ml (0-0.045)
[2019-12-14] MEDS ORDERED: MoRPHine SULFATE 4 MG/ML 1 ML CARP\\VIAL IV STA (15:10)
[2019-12-14 15:16] LABS: Beta-Hydroxybutyrate 1.24 mg/dl (0.2-2.81)
[2019-12-14] MEDS ORDERED: INSULIN HUMAN REGULAR SC STA (15:21)
--- NOTE | 2019-12-14 15:21 | History & Physical Report ---
Date of Service December 14, 2019 Assessment & Plan (1) SBO (small bowel obstruction): -Admit to PCU -Abdomen very tense, tympanic, tender to palpation initially on exam --Pt denies history of abd surgeries. -NG tube placed in the ER, within minutes patient has already had outs equivalent to 2.5 entirely full canisters. -Continue low intermittent suction with serial abd exams. -General surgery consulted, Dr. Davis -BMP with hyponatremia, hyperglycemia -Received 500 mL NSS in the ER, will continue NSS at 100 mL/h x 1 L while n.p.o. cautiously in light of history of CHF -CT of the abd/pelvis reviewed: 1. Findings are consistent with a high-grade small bowel obstruction, with a possible transition point in the lateral right lower quadrant. This may be on the basis of adhesions, and surgical consultation is advised. 2. No intraperitoneal free air is seen. No focally thick walled or edematous bowel loops are identified. 3. Fluid fills the distal esophagus. Note that this may place the patient risk for aspiration. 4. A normal left kidney is not identified and presumed congenitally versus surgically absent. Clinical correlation will be required. 5. The coronary arteries are densely calcified. Consider nonemergent cardiology follow-up. -Pain control with morphine as needed (2) CAD (coronary artery disease): -Hold oral coreg, will use Lopressor 5 mg IV Q6H while n.p.o. -Holding bumex and metalozone for acute kidney injury-last took these medications this morning -Running slow maintenance fluids as above, monitor for fluid retention (3) Cardiomyopathy, nonischemic: With a history of such in 2018 with resolution, last EF 55% in 07/2018 (4) Chronic diastolic CHF (congestive heart failure): - Last Echo - had a transient nonischemic cardiomyopathy - LV function has improved on last Echo in Jul 2018. - Follows with Dr. Heath as outpt - lopressor as above to replace carvedilol - Hold diuretics with ZAIRE (5) Hypertension: -Blood pressures controlled -Giving IV Lopressor to replace p.o. carvedilol while n.p.o. -Holding diuretics (6) Dyslipidemia: -Hold home atorvastatin while n.p.o. (7) Diabetes type 2, uncontrolled: - A1C = 11.2 in Jul 2019. - Recheck hemoglobin A1c with am labs - Lantus 30 U , cut in half from home dose with NPO status - Received 10 units regular insulin in the ER, continue ISS with Accu-Cheks Q6H while n.p.o. (8) Neuropathy, peripheral: - Uses a walker at baseline - PT/OT consults (9) Chronic kidney disease: - Acute kidney injury today, Cr elevated at 2.8, will place on maintenece fluids overnight while NPO with improved cardiac status. - NSS at 100 ml/hr - Holding Bumex and metolazone - CT abd notes left kidney not identifiable - congenital? Pt reports no histories of abd surgeries. (10) Diabetic gastroparesis: -History of such, possibly worsening SBO as above (11) GERD (gastroesophageal reflux disease): -Famotidine 20 mg IV BID, hold oral pantoprazole with NGT in. (12) Morbid obesity with BMI of 50.0-59.9, adult: -Diet and exercise to be encouraged prior to discharge -BMI of 50.6 (13) DVT prophylaxis: - teds, heparin subcu q8h, if considerations for surgical procedure in then hold heparin CODE: Full Dispo: From home, likely to remain in the hospital x 1-2 days History of Present Illness Primary Care Provider: Idris Moreno MD This is a 49 yo M with PMHx of CAD, nonischemic cardiomyopathy, HTN, HLD, chronic diastolic CHF, DM type II, insulin-dependent, neuropathy, morbid obesity with BMI of 50.6, history of diabetic foot ulcers, CKD stage III, GERD, diabetic gastroparesis. Pt presents with acute onset of abdominal pain and diarrhea and found to have a high-grade small bowel obstruction on CT abd/pelvis. Patient notes that his belly began to feel more distended and swollen about 2 to 3 days ago however it was not painful. He reports his last time he ate was over 24 hours ago but has been able to drink some fluids without any nausea or vomiting. His abdominal pain got worse late last evening into this morning. He had developed diarrhea about 3 days ago, proceeded to take OTC antidiarrheal tablets a few times to help resolve this. He has not had any diarrhea today. He denies any bright red blood or dark tarry stools. He denies any history of abdominal surgeries in the past. He typically ambulates with the use of a cane due to peripheral neuropathy in his feet. He denies any current ulcerations on his feet, ankles or on his buttocks from sedentary lifestyle. He uses Bumex and metolazone as needed for swelling in his feet, last taken this morning, but is unable to tell me a dry weight, he does not routinely check his weight. Allergies Allergy/AdvReac Type Severity Reaction Status Date / Time No Known Allergies Allergy Verified 12/14/19 15:04 Home Medications Home Medications Medication Instructions Recorded Confirmed Type Lantus Solostar U-100 Insulin 60 unit SUBCUT QAM 04/03/18 12/14/19 History aspirin 81 mg PO QAM 04/03/18 12/14/19 History acidophilus-pectin, citrus 1 cap PO QAM 03/09/19 12/14/19 History lancets 30 gauge #25 ea 04/12/19 09/20/19 History pen needle, diabetic 32 gauge x #50 ea 04/12/19 09/20/19 History 1/4" pen needle, diabetic 32 gauge x #50 ea 04/12/19 09/20/19 History 1/4" carvedilol 6.25 mg tablet 6.25 mg PO BID #180 tab 07/26/19 12/14/19 Rx atorvastatin [Lipitor] 20 mg PO QAM 08/10/19 12/14/19 History pantoprazole 40 mg PO QAM 08/10/19 12/14/19 History bumetanide 2 mg tablet 2 mg PO BID PRN #60 tab 09/25/19 12/14/19 Rx insulin aspart U-100 100 unit/mL 10 units SQ TID #15 ml 10/05/19 12/14/19 Rx (3 mL) subcutaneous pen blood sugar diagnostic #100 ea 10/31/19 Rx pen needle, diabetic 32 gauge x #100 ea 11/01/19 Rx /32" tramadol 50 mg tablet 50 mg PO BID PRN #60 tab 11/08/19 12/14/19 Rx metolazone 5 mg tablet 5 mg PO DAILY PRN #30 tab 11/20/19 12/14/19 Rx Past Med/Surg History Medical History (Updated 12/14/19 @ 15:20 by Candice Davis PA-C) Acquired claw toe of left foot (Acute) Acquired claw toe of right foot (Acute) Acquired hammer toe of right foot (Acute) Albuminuria CAD (coronary artery disease) (Chronic) Cardiomyopathy, nonischemic (Chronic) CHF (congestive heart failure) Chronic back pain (Chronic) CKD (chronic kidney disease) Diabetes (Chronic) Diabetes mellitus with diabetic polyneuropathy (Acute) Diabetic gastroparesis (Chronic) Diabetic peripheral neuropathy GERD (gastroesophageal reflux disease) (Chronic) Hammertoe of left foot (Acute) HLD (hyperlipidemia) (Chronic) HTN (hypertension) (Chronic) Hx MRSA infection (Chronic) Iron deficiency anemia Leg abscess Morbid obesity with BMI of 45.0-49.9, adult (Chronic) MRSA infection Myocardial infarction Non-ischemic cardiomyopathy Orthostatic hypotension Peripheral edema (Chronic) Restless leg syndrome Restless legs syndrome (Chronic) Skin abscess (Acute) Jul 2019, neck, s/p I&D with +MRSA culture Skin ulcer of left foot including toes (Acute) Surgical History Hx of cardiac cath Hx of colonoscopy Hx of hand surgery Family History (Updated 08/20/19 @ 12:50 by Cherie Michaud) Family/Other Colon cancer Father Hypertension Prostate cancer Diabetes Brother Diabetes Mother Diabetes Other No significant family history Social History Preferred Language: Japanese Communication Ability: Effective Visual Impairment: Limited Hearing Ability: Normal Svp [employer] Required: No Beliefs That Will Affect Care: None marital status: Single Current Living Situation: Parent current occupational status: employed Other Information That Helps Us Care for You: No Feels Safe at Home: Yes Safety Concerns: Feels Safe At This Time Smoking Status: Never smoker Hx Alcohol Use: No Hx Substance Use: No during the past year weight has: remained stable Review of Systems Review of Systems: Constitutional: No fever, sweats or chills Eyes: No diplopia, no worsening or blurred vision ENT: normal hearing, no trouble swallowing Respiratory: No cough, sputum, dyspnea at rest or on exertion Cardiovascular: No chest pain, tightness or palpitations Abdomen: + As per HPI, + pain, + nausea, no vomiting, + diarrhea Musculoskeletal: No joint pain, calf pain, + lower extremity swelling, at baseline Neurologic: No weakness, numbness/tingling, or balance problems Psychiatric: No anxiety or depression Skin: No rash or itch Physical Exam Physical Exam: General: awake, alert, no apparent distress, + morbidly obese, BMI = 50.6 Head: Normocephalic, atraumatic ENT: PERRL, EOMI, no pharyngeal exudate, mucous membranes moist Chest: Clear to auscultation, on room air, no adventitious breath sounds Cardiac: Regular rate and rhythm, no murmur, no JVD, normal peripheral pulses, good capillary refill Abdominal: + Morbidly obese, abdomen appears like a beach ball, + High-pitched tinkling sounds in RUQ and epigastric region, + Tympanic on percussion, + distended, + tense, + tender to palpation in all quadrants, no rebound, guarding. Extremities: Normal inspection, 1+ peripheral edema in BLE, no erythema, calfs nontender to palpation Psych: Normal mood and affect Neuro: AAO x 3, strength intact bilaterally and rated 5/5, no motor deficits, speech is clear, no peripheral sensory deficits Skin: no rash or erythema Results & Data Results & Data ([facility]) Vital Signs (Past 12 Hours) Vital Signs Temp Pulse Resp BP Pulse Ox 12/14/19 13:53 96 H 22 96 12/14/19 13:29 37.2 C 108 H 20 115/75 96 Laboratory Results 12/14/19 12/14/19 12/14/19 Range/Units 14:16 14:16 13:58 WBC 8.87 (4.8-10.8) K/uL RBC 5.80 (4.7-6.1) M/uL Hgb 15.8 (14.0-18.0) g/dL Hct 47.9 (42-52) % MCV 82.6 (80-100) fL MCH 27.2 (25-34) pg MCHC 33.0 (32-36) g/dL RDW Std Deviation 41.1 (36.4-46.3) fL RDW Coeff of Soledad 13.8 (11.5-14.5) % Plt Count 225 (130-400) K/uL MPV 10.0 (7.4-10.4) fL Immature Gran % (Auto) 0.2 % Neut % (Auto) 83.3 % Lymph % (Auto) 8.1 % Morrison % (Auto) 7.6 % Eos % (Auto) 0.7 % Baso % (Auto) 0.1 % Immature Gran # (Auto) 0.02 (0.00-0.02) K/uL Neut # (Auto) 7.39 H (1.4-6.5) K/uL Lymph # (Auto) 0.72 L (1.2-3.4) K/uL Morrison # (Auto) 0.67 H (0.11-0.59) K/uL Eos # (Auto) 0.06 (0-0.5) K/uL Baso # (Auto) 0.01 (0-0.2) K/uL Sodium 131 L (136-145) mmol/L Potassium 4.6 (3.5-5.1) mmol/L Chloride 102 (98-107) mmol/L Carbon Dioxide 21 (21-32) mmol/L Anion Gap 9.0 (3-11) BUN 42 H (7-18) mg/dl Creatinine 2.39 H (0.6-1.4) mg/dl Est Cr Clr Drug Dosing 53.6 ml/min Est GFR ( Amer) 35.6 Est GFR (Non-Af Amer) 30.7 BUN/Creatinine Ratio 17.4 (10-20) Glucose 330 H* (70-99) mg/dl POC Glucose 322 H* (70-99) mg/dl Calcium 9.6 (8.5-10.1) mg/dl Total Bilirubin 0.5 (0.2-1) mg/dl AST 20 (15-37) U/L ALT 26 (12-78) U/L Alkaline Phosphatase 112 (45-117) U/L Troponin I < 0.015 (0-0.045) ng/ml Total Protein 8.8 H (6.4-8.2) gm/dl Albumin 3.6 (3.4-5.0) gm/dl Globulin 5.2 H (2.5-4.0) gm/dl Albumin/Globulin Ratio 0.7 L (0.9-2) Lipase 80 (73-393) U/L Beta-Hydroxybutyric Acd 1.24 (0.2-2.81) mg/dl Diagnostic Findings CT SCAN OF THE ABDOMEN AND PELVIS WITHOUT IV CONTRAST CLINICAL HISTORY: Generalized abdominal pain. Diarrhea. COMPARISON STUDY: Lumbar spine radiographs dated 03/22/2017. TECHNIQUE: CT scan of the abdomen and pelvis is performed from the lung bases to the proximal femora. Images are reviewed in the axial, sagittal, and coronal planes. IV contrast was not administered for this examination due to chronic kidney disease. Note that the examination is suboptimal without IV contrast. Examination is also degraded by large body habitus, and streak artifact from the body wall abutting the CT gantry. A dose lowering technique was utilized adhering to the principles of ALARA. CT DOSE: 1284.64 mGycm FINDINGS: Lung bases: The heart is normal in size and without pericardial effusion. The coronary arteries are densely calcified. The lung bases are clear noting bibasilar scarring/atelectasis. Bilateral gynecomastia is noted. Fluid fills the distal esophagus. Liver: The unenhanced liver is normal in size, contour, and attenuation. There is no intrahepatic biliary ductal dilatation. Gallbladder: Unremarkable. Spleen: Normal in size and attenuation. Pancreas: There is near-complete fatty atrophy of the pancreas. Adrenal glands: Unremarkable. Kidneys: The left kidney is not identified and may be congenitally versus surgically absent. The unenhanced right kidney is normal in size and without hydronephrosis. There are no renal calculi identified. There is no evidence of contour deforming renal mass lesion. Abdominal vasculature: The abdominal aorta is normal in course and caliber noting mild atherosclerotic calcification. Stomach and bowel: The stomach is distended and fluid-filled. The proximal small bowel loops are markedly distended and fluid-filled with numerous air-fluid levels. Small bowel loops measure up to 4.4 cm in diameter. The distal small bowel loops are decompressed, end there is a questionable transition point in the lateral right lower quadrant on image #331. Findings consistent with a high- grade small bowel obstruction. No focally thick walled bowel is identified. There is no pneumatosis intestinalis or portal venous gas. There are scattered colonic diverticula without CT evidence of acute diverticulitis. The appendix is well-visualized and normal. Peritoneum: There is no intraperitoneal free air or abdominal ascites. There is a large fat-containing umbilical hernia. Lymphadenopathy: None. Pelvic viscera: The bladder, prostate, and seminal vesicles are normal as imaged . Skeletal structures: The skeletal structures are osteopenic. Mild to moderate lumbosacral spondylosis is noted. No lytic or blastic lesions are seen. IMPRESSION: 1. Findings are consistent with a high-grade small bowel obstruction, with a possible transition point in the lateral right lower quadrant. This may be on the basis of adhesions, and surgical consultation is advised. 2. No intraperitoneal free air is seen. No focally thick walled or edematous bowel loops are identified. 3. Fluid fills the distal esophagus. Note that this may place the patient risk for aspiration. 4. A normal left kidney is not identified and presumed congenitally versus surgically absent. Clinical correlation will be required. 5. The coronary arteries are densely calcified. Consider nonemergent cardiology follow-up. 6. Additional findings as above. ECG Additional Comments: 14-DEC-2019 13:53:29 [facility]-EDSTAT ROUTINE RETRIEVAL Normal sinus rhythm Left axis deviation Anteroseptal infarct (cited on or before 14-DEC-2019) Abnormal ECG When compared with ECG of 10-AUG-2019 11:39, QT has shortened 25mm/s 10mm/mV 150Hz 9.0.9 12SL 241 KATHIE: 10 Referred by: REFERRED SELF Unconfirmed Vent. rate 97 BPM CO interval 174 ms QRS duration 98 ms QT/QTc 344/436 ms P-R-T axes 57 -37 32 Code Status & VTE Plan Code Status Full code-discussed with the patient at bedside Supervising Physician Co-Signing Physician Notes PA Supervision Note: I personally saw and examined the patient. I verified all lynn points and agree with FIDENCIO Davis with the following exceptions and/or additions: This patient is a morbidly obese 49-year-old with significant medical history as noted above, here with high-grade small bowel obstruction. Unclear cause as he has no history of abdominal surgeries which would suggest adhesive disease. NG tube placed in the ER with large amounts of fluid withdrawn History and ROS reviewed as above Vitals reviewed Morbidly obese, NAD, NG tube in place Anicteric sclera Regular rate and rhythm, no murmurs gallops rubs Lungs clear auscultation bilaterally, no wheezes crackles or rhonchi Abdomen hypoactive bowel sounds, significantly distended, positive tenderness palpation right side of the abdomen without guarding or rebound, NG tube in place with thick yellow drainage Extremities-1+ pitting edema to the knees bilaterally Labs and CT image personally reviewed by me 49-year-old male with history as above, here with high-grade SBO. -NG tube in place Surgical consultation requested -Maintain gentle IV fluids and replace electrolytes as needed -Check BMP, magnesium, phosphorus in the morning -Plan outlined otherwise as above PG Care Time/CCT Total # of Minutes Spent Total Time Spent with Patient: Total time spent is greater than 50% in coordination of care (as documented) at patient's floor/unit and/or counseling patient: Coding Level of Care Code 97973 Initial Inpt Care Lvl 3 Diagnoses SBO (small bowel obstruction) K56.609 CAD (coronary artery disease) I25.10 Associated angina: without angina Coronary Disease-Associated Artery/Lesion type: [place] artery [place] vs. transplanted heart: [place] heart Cardiomyopathy, nonischemic I42.8 Chronic diastolic CHF (congestive heart failure) I50.32 Hypertension I10 Dyslipidemia E78.5 Diabetes type 2, uncontrolled E11.65 Neuropathy, peripheral G62.9 Chronic kidney disease N18.9 Diabetic gastroparesis E11.43; K31.84 GERD (gastroesophageal reflux disease) K21.9 Morbid obesity with BMI of 50.0-59.9, adult E66.01; Z68.43 DVT prophylaxis Z29.9 (1) CAD (coronary artery disease) Associated angina: without angina Coronary Disease-Associated Artery/Lesion type: [place] artery [place] vs. transplanted heart: [place] heart Qualified Code (s): I25.10 - Atherosclerotic heart disease of [place] coronary artery without angina pectoris
--- NOTE | 2019-12-14 16:18 | Surgery Consultation ---
Date of Consultation December 14, 2019 Assessment & Plan (1) SBO (small bowel obstruction): This is a 49yM with a PMH of CAD, DM2, HTN, CKD, gastroparesis, diabetic peripheral neuropathy, and morbid obesity who presents to the [facility] ED on 12/14/19 with complaints of abdominal bloat, pain, and diarrhea. Workup in the ED with a CT a/p revealed findings concerning for a high grade small bowel obstruction with possible transition point in the RLQ. Requested NGT be placed, and so far patient with >3L output. Since placement patient reports improvement in his symptoms. Patient has no history of abdominal surgery. We will give this patient a trial of conservative management, continue NGT, and NPO with IVF. We will continue to follow along. Patient discussed with Dr. Davis. History of Present Illness History of Present Illness This is a 49yM with a PMH of CAD, DM2, HTN, CKD, gastroparesis, diabetic peripheral neuropathy, and morbid obesity who presents to the [facility] ED on 12/14/19 with complaints of abdominal bloat and diarrhea. Patient reports he noticed the bloating start about two days ago. He says diarrhea is not unusual for him, but has increased over the past couple of days. He does report some pain across his abdomen as well, therefore he presented to the ED for further evaluation. In the ED patient underwent a CT a/p that revealed findings concerning for a high grade small bowel obstruction with possible transition point in the right lower quadrant. WBC 8.8. Patient denies any prior abdominal surgeries. He denies any chest pain, shortness of breath, nausea/vomiting, or fevers/chills. He did have a BM this AM and states that he is passing flatus. He initially rated his pain a 5-6, but feels better after NGT placed in the ED, and now his pain is about a 2. He never experienced pain like this before and describes his abdomen as "feeling like a beach ball." Medicine has admitted patient under their service with a surgical consultation placed. Allergies Allergy/AdvReac Type Severity Reaction Status Date / Time No Known Allergies Allergy Verified 12/14/19 15:04 Home Medications Home Medications Medication Instructions Recorded Confirmed Type Lantus Solostar U-100 Insulin 60 unit SUBCUT QA 04/03/18 12/14/19 History aspirin 81 mg PO QAM 04/03/18 12/14/19 History acidophilus-pectin, citrus 1 cap PO QAM 03/09/19 12/14/19 History lancets 30 gauge #25 ea 04/12/19 09/20/19 History pen needle, diabetic 32 gauge x #50 ea 04/12/19 09/20/19 History 1/4" pen needle, diabetic 32 gauge x #50 ea 04/12/19 09/20/19 History 1/4" carvedilol 6.25 mg tablet 6.25 mg PO BID #180 tab 07/26/19 12/14/19 Rx atorvastatin [Lipitor] 20 mg PO QAM 08/10/19 12/14/19 History pantoprazole 40 mg PO QAM 08/10/19 12/14/19 History bumetanide 2 mg tablet 2 mg PO BID PRN #60 tab 09/25/19 12/14/19 Rx insulin aspart U-100 100 unit/mL 10 units SQ TID #15 ml 10/05/19 12/14/19 Rx (3 mL) subcutaneous pen blood sugar diagnostic #100 ea 10/31/19 Rx pen needle, diabetic 32 gauge x #100 ea 11/01/19 Rx 5/32" tramadol 50 mg tablet 50 mg PO BID PRN #60 tab 11/08/19 12/14/19 Rx metolazone 5 mg tablet 5 mg PO DAILY PRN #30 tab 11/20/19 12/14/19 Rx Patient History Medical History Acquired claw toe of left foot (Acute) Acquired claw toe of right foot (Acute) Acquired hammer toe of right foot (Acute) Albuminuria CAD (coronary artery disease) (Chronic) Cardiomyopathy, nonischemic (Chronic) CHF (congestive heart failure) Chronic back pain (Chronic) CKD (chronic kidney disease) Diabetes (Chronic) Diabetes mellitus with diabetic polyneuropathy (Acute) Diabetic gastroparesis (Chronic) Diabetic peripheral neuropathy GERD (gastroesophageal reflux disease) (Chronic) Hammertoe of left foot (Acute) HLD (hyperlipidemia) (Chronic) HTN (hypertension) (Chronic) Hx MRSA infection (Chronic) Iron deficiency anemia Leg abscess Morbid obesity with BMI of 45.0-49.9, adult (Chronic) MRSA infection Myocardial infarction Non-ischemic cardiomyopathy Orthostatic hypotension Peripheral edema (Chronic) Restless leg syndrome Restless legs syndrome (Chronic) Skin abscess (Acute) Jul 2019, neck, s/p I&D with +MRSA culture Skin ulcer of left foot including toes (Acute) Surgical History Hx of cardiac cath Hx of colonoscopy Hx of hand surgery Family History Family/Other Colon cancer Father Hypertension Prostate cancer Diabetes Brother Diabetes Mother Diabetes Other No significant family history Social History Preferred Language: Venezuelan Communication Ability: Effective Visual Impairment: Limited Hearing Ability: Normal Chicken Dresser Required: No Beliefs That Will Affect Care: None marital status: Single Current Living Situation: Parent current occupational status: employed Other Information That Helps Us Care for You: No Feels Safe at Home: Yes Safety Concerns: Feels Safe At This Time Smoking Status: Never smoker Hx Alcohol Use: No Hx Substance Use: No during the past year weight has: remained stable Review of Systems Constitutional: no fever and no chills Respiratory: no dyspnea Cardiovascular: no chest pain Gastrointestinal: + abdominal pain (across central abdomen), + bloating and + diarrhea/loose stools; no nausea and no vomiting Physical Exam Physical Exam: awake/alert Constitutional: + morbidly obese; no acute distress Respiratory: normal respiratory effort Gastrointestinal (Abdomen): Inspection/Auscultation: + abdomen distended Percussion/Palpation: + abdomen tender (some ttp in generalized abdomen, worse on the right side) and + abdomen firm Results & Data Vital Signs (Past 12 Hours) Vital Signs Temp Pulse Resp BP Pulse Ox 12/14/19 16:00 85 20 112/63 97 12/14/19 15:30 90 14 142/79 H 12/14/19 15:00 93 H 25 H 164/137 H 92 12/14/19 14:00 95 H 30 H 105/63 94 12/14/19 13:53 96 H 22 96 12/14/19 13:29 37.2 C 108 H 20 115/[address] SCAN OF THE ABDOMEN AND PELVIS WITHOUT IV CONTRAST CLINICAL HISTORY: Generalized abdominal pain. Diarrhea. COMPARISON STUDY: Lumbar spine radiographs dated 03/22/2017. TECHNIQUE: CT scan of the abdomen and pelvis is performed from the lung bases to the proximal femora. Images are reviewed in the axial, sagittal, and coronal planes. IV contrast was not administered for this examination due to chronic kidney disease. Note that the examination is suboptimal without IV contrast. Examination is also degraded by large body habitus, and streak artifact from the body wall abutting the CT gantry. A dose lowering technique was utilized adhering to the principles of ALARA. CT DOSE: 1284.64 mGycm FINDINGS: Lung bases: The heart is normal in size and without pericardial effusion. The coronary arteries are densely calcified. The lung bases are clear noting bibasilar scarring/atelectasis. Bilateral gynecomastia is noted. Fluid fills the distal esophagus. Liver: The unenhanced liver is normal in size, contour, and attenuation. There is no intrahepatic biliary ductal dilatation. Gallbladder: Unremarkable. Spleen: Normal in size and attenuation. Pancreas: There is near-complete fatty atrophy of the pancreas. Adrenal glands: Unremarkable. Kidneys: The left kidney is not identified and may be congenitally versus surgically absent. The unenhanced right kidney is normal in size and without hydronephrosis. There are no renal calculi identified. There is no evidence of contour deforming renal mass lesion. Abdominal vasculature: The abdominal aorta is normal in course and caliber noting mild atherosclerotic calcification. Stomach and bowel: The stomach is distended and fluid-filled. The proximal small bowel loops are markedly distended and fluid-filled with numerous air-fluid levels. Small bowel loops measure up to 4.4 cm in diameter. The distal small bowel loops are decompressed, end there is a questionable transition point in the lateral right lower quadrant on image #331. Findings consistent with a high- grade small bowel obstruction. No focally thick walled bowel is identified. There is no pneumatosis intestinalis or portal venous gas. There are scattered colonic diverticula without CT evidence of acute diverticulitis. The appendix is well-visualized and normal. Peritoneum: There is no intraperitoneal free air or abdominal ascites. There is a large fat-containing umbilical hernia. Lymphadenopathy: None. Pelvic viscera: The bladder, prostate, and seminal vesicles are normal as imaged. Skeletal structures: The skeletal structures are osteopenic. Mild to moderate lumbosacral spondylosis is noted. No lytic or blastic lesions are seen. IMPRESSION: 1. Findings are consistent with a high-grade small bowel obstruction, with a possible transition point in the lateral right lower quadrant. This may be on the basis of adhesions, and surgical consultation is advised. 2. No intraperitoneal free air is seen. No focally thick walled or edematous bowel loops are identified. 3. Fluid fills the distal esophagus. Note that this may place the patient risk for aspiration. 4. A normal left kidney is not identified and presumed congenitally versus surgically absent. Clinical correlation will be required. 5. The coronary arteries are densely calcified. Consider nonemergent cardiology follow-up. 6. Additional findings as above. ACT 112: Positive. There are findings on this exam that require communication between the performing entity and the patient following Patient Test Result Information Act ([place] Act 112) guidelines. Electronically signed by: Iker Hinton M.D. 12/14/2019 2:47 PM PG Care Time/CCT Total # of Minutes Spent Total Time Spent with Patient: Total time spent is greater than 50% in coordination of care (as documented) at patient's floor/unit and/or counseling patient: Coding Level of Care Code 17241 Inpt Consult Level 3 Diagnoses SBO (small bowel obstruction) K56.609
[2019-12-14] MEDS ORDERED: NovoLIN-R INSULIN PER UNIT CHARGE ONE (16:28)
--- NOTE | 2019-12-14 17:04 | Electrocardiogram Report ---
Test Reason : Blood Pressure : / mmHG Vent. Rate : 097 BPM Atrial Rate : 097 BPM P-R Int : 174 ms QRS Dur : 098 ms QT Int : 344 ms P-R-T Axes : 057 -37 032 degrees QTc Int : 436 ms Normal sinus rhythm Left axis deviation Anteroseptal infarct (cited on or before 14-DEC-2019) Abnormal ECG When compared with ECG of 10-AUG-2019 11:39, QT has shortened Confirmed by Timothy Hope ([id number]) on 12/14/2019 5:03:50 PM Referred By: REFERRED SELF Confirmed By:Timothy Hope
[2019-12-14] MEDS ORDERED: DEXTROSE 50% 50 ML SYRINGE IV PRN (18:35)
[2019-12-14] MEDS ORDERED: SODIUM CHLORIDE 0.9% 1000ML 1,000 ML IV SCH (18:35)
[2019-12-14] MEDS ORDERED: MoRPHine SULFATE 4 MG/ML 1 ML CARP\\VIAL IV PRN (18:35)
[2019-12-14] MEDS ORDERED: GLUCOSE 10 TABS/TUBE PO PRN (18:35)
[2019-12-14] MEDS ORDERED: ONDANSETRON INJ 2 MG/ML 2 ML VIAL IV PRN (18:35)
[2019-12-14] MEDS ORDERED: GLUCAGON FOR INJ 1 MG VIAL SQ PRN (18:35)
[2019-12-14] MEDS ORDERED: ACETAMINOPHEN 325 MG TAB PO PRN (18:35)
[2019-12-14] MEDS ORDERED: CARBOHYDRATES FOR HYPOGLYCEMIA PO PRN (18:35)
[2019-12-14] MEDS ORDERED: INSULIN ASPART 100 UNITS/ML 3 ML PEN SC SCH (19:00)
[2019-12-14] MEDS ORDERED: Nursing to Pharmacy Communication ONE ×2 (19:12→20:05)
[2019-12-14] MEDS: METOPROLOL TARTRATE 1 MG/ML VIAL IV SCH ×2 (20:03→23:57)
[2019-12-14] MEDS: FAMOTIDINE 20 MG in SYRINGE 3 ML IV SCH (20:03)
[2019-12-14] MEDS: carvediloL 6.25 MG TAB PO SCH (20:03)
[2019-12-14] MEDS ORDERED: carvediloL 6.25 MG TAB PO SCH (21:00)
[2019-12-14] MEDS: INSULIN ASPART 100 UNITS/ML 3 ML PEN SC SCH (23:55)
[2019-12-14] MEDS: HEPARIN SOD 5,000 UNIT/0.5 ML VIAL SQ SCH (23:58)
[2019-12-15] MEDS: METOPROLOL TARTRATE 1 MG/ML VIAL IV SCH ×3 (06:00→17:42)
[2019-12-15] MEDS: INSULIN ASPART 100 UNITS/ML 3 ML PEN SC SCH ×3 (06:40→17:43)
[2019-12-15 07:15] LABS: Hematocrit (blood only) 42.4 % (42-52); Hemoglobin 14.3 g/dL (14.0-18.0); Mean Corpuscular Hemoglobin 27.8 pg (25-34); Mean Corpuscular Hgb Conc 33.7 g/dL (32-36); Mean Corpuscular Volume 82.3 fL (80-100); Mean Platelet Volume 10.2 fL (7.4-10.4); Platelet Count 174 K/uL (130-400); RDW Coefficient of Variation 13.8 % (11.5-14.5); RDW Standard Deviation 41.7 fL (36.4-46.3); Red Blood Count 5.15 M/uL (4.7-6.1); White Blood Count 5.59 K/uL (4.8-10.8)
[2019-12-15 07:31] LABS: Estimated Average Glucose 301 mg/dl; Hemoglobin A1C 12.1 % (4.5-5.6)
[2019-12-15 07:54] LABS: BUN Creatinine Ratio 16.7 (10-20); Calcium 8.3 mg/dl (8.5-10.1); Creatinine Clr Calc Pharmacy 45.4 ml/min; Est GFR (African American) 28.7; Est GFR (Non-African American) 24.8; Magnesium 1.6 mg/dl (1.8-2.4); Potassium 4.5 mmol/L (3.5-5.1)
[2019-12-15 07:56] LABS: Albumin Globulin Ratio 0.7 (0.9-2); Bilirubin,Total 0.4 mg/dl (0.2-1); Globulin 4.6 gm/dl (2.5-4.0); Phosphorus 3.2 mg/dl (2.5-4.9); Total Protein 7.6 gm/dl (6.4-8.2)
[2019-12-15] MEDS: ASPIRIN 81 MG ECTAB PO SCH (08:11)
[2019-12-15] MEDS: carvediloL 6.25 MG TAB PO SCH ×2 (08:11→20:42)
--- NOTE | 2019-12-15 08:32 | XRay Report ---
XR KUB/Abdomen 1 view CLINICAL HISTORY: eval sbo pattern obstruction COMPARISON STUDY: No previous studies for comparison. FINDINGS: Findings consistent with distal small bowel obstructive change. Moderate distention of the small bowel. Nasogastric tube within the distal stomach. IMPRESSION: 1. Distal small bowel obstructive change. 2. Nasogastric tube within the distal stomach. ACT 112: Negative or not required by law. The above report was generated using voice recognition software. It may contain grammatical, syntax or spelling errors. Electronically signed by: Kendall Ewing M.D. 12/15/2019 8:30 AM
[2019-12-15] MEDS ORDERED: ASPIRIN 81 MG ECTAB PO SCH (09:00)
[2019-12-15] MEDS: HEPARIN SOD 5,000 UNIT/0.5 ML VIAL SQ SCH ×2 (09:13→17:41)
[2019-12-15] MEDS: INSULIN GLARGINE SOLOSTAR 100 UNITS/ML 3 ML PEN SQ SCH (09:14)
[2019-12-15] MEDS: POTASSIUM CHLORIDE 10 MEQ in SODIUM CHLORIDE 0.45 % 1,000 ML IV SCH ×3 (09:14→20:47)
[2019-12-15] MEDS: FAMOTIDINE 20 MG in SYRINGE 3 ML IV SCH ×2 (09:14→20:47)
--- NOTE | 2019-12-15 09:17 | Surgery Progress Note ---
Date of Service December 15, 2019 Assessment & Plan (1) SBO (small bowel obstruction): Hospital Day#1 here with small bowel obstruction NGT placed yesterday, >5L output so far KUB obtained this AM, reveals distal SBO Plan to keep NGT today. Keep NGT in place until output decreases and pt has retu rn of meaningful bowel function IVF ordered for pt this AM due to large NGT output and bump in Cr this AM, will discuss with hospitalist as pt has CHF No plans for surgical intervention, continue conservative management Pt seen and examined with Dr. Ryan Méndez surgery covering over the weekend Subjective Patient seen resting in bed. Feeling somewhat better with NGT placed. Had some diarrhea, no flatus yet. Pain is somewhat improved. Physical Exam Gastrointestinal (Abdomen): Inspection/Auscultation: + abdomen distended Percussion/Palpation: + abdomen tender (mild ttp generalized abdomen) and abdomen soft NGT with yellow/green tinged output Results & Data Vital Signs (Past 12 Hours) Vital Signs Temp Pulse Pulse Resp BP BP Pulse Ox 12/15/19 08:08 36.8 C 85 20 144/82 H 94 12/15/19 06:00 88 112/70 12/15/19 05:55 37.1 C 88 18 112/70 93 12/15/19 00:00 36.8 C 82 18 115/70 94 12/14/19 23:57 82 115/70 PG Care Time/CCT Total # of Minutes Spent Total Time Spent with Patient: Total time spent is greater than 50% in coordination of care (as documented) at patient's floor/unit and/or counseling patient: Coding Level of Care Code 40421 Subseq Hosp Care Lvl 1 Diagnoses SBO (small bowel obstruction) K56.609
[2019-12-15] MEDS ORDERED: Nursing to Pharmacy Communication ONE (19:02)
[2019-12-15 20:00] LABS: Appearance Urine Cloudy (Clear); Bacteria Urine Automated Negative (Negative); Blood Urine Negative (Negative); Color Urine Dark Yellow; Epithelial Cell Urine Auto 20-30 /lpf (0-5); Glucose Urine UA 1+ (Negative); Ketones Urine Trace (Negative); Leukocyte Esterase Urine Negative (Negative); Nitrite Urine Negative (Negative); Protein Urine 2+ (Negative); RBC Urine Automated 0-4 /hpf (0-4); Specific Gravity Urine 1.024 (1.000-1.030); Urobilinogen Urine Negative (Negative)
[2019-12-15 20:03] LABS: Bilirubin Urine Negative (Negative); Ictotest Urine Negative (Negative)
[2019-12-15] MEDS ORDERED: MAGNESIUM SULFATE / D5W 1 GM/100 ML BAG IV ONE (21:15)
--- NOTE | 2019-12-15 22:58 | Hospitalist Progress Note ---
Date of Service December 15, 2019 Assessment & Plan (1) SBO (small bowel obstruction): -Admit to PCU -Abdomen very tense, tympanic, tender to palpation initially on exam --Pt denies history of abd surgeries. -NG tube placed in the ER, within minutes patient has already had outs equivalent to 2.5 entirely full canisters. -Continue low intermittent suction with serial abd exams. -Placed on IVF due to worsening kidney function. -General surgery consulted, Dr. Davis -BMP with hyponatremia, hyperglycemia -CT of the abd/pelvis reviewed: 1. Findings are consistent with a high-grade small bowel obstruction, with a possible transition point in the lateral right lower quadrant. This may be on the basis of adhesions, and surgical consultation is advised. 2. No intraperitoneal free air is seen. No focally thick walled or edematous bowel loops are identified. 3. Fluid fills the distal esophagus. Note that this may place the patient risk for aspiration. 4. A normal left kidney is not identified and presumed congenitally versus surgically absent. Clinical correlation will be required. 5. The coronary arteries are densely calcified. Consider nonemergent cardiology follow-up. -Pain control with morphine as needed (2) CAD (coronary artery disease): -Hold oral coreg, will use Lopressor 5 mg IV Q6H while n.p.o. -Holding bumex and metalozone for acute kidney injury-last took these medications this morning -increasing fluids as kidney numbers are worse. (3) Cardiomyopathy, nonischemic: With a history of such in 2018 with resolution, last EF 55% in 07/2018 (4) Chronic diastolic CHF (congestive heart failure): - Last Echo - had a transient nonischemic cardiomyopathy - LV function has improved on last Echo in Jul 2018. - Follows with Dr. Heath as outpt - lopressor as above to replace carvedilol - Hold diuretics with ZAIRE (5) Hypertension: -Blood pressures controlled -Giving IV Lopressor to replace p.o. carvedilol while n.p.o. -Holding diuretics (6) Dyslipidemia: -Hold home atorvastatin while n.p.o. (7) Diabetes type 2, uncontrolled: - A1C = 11.2 in Jul 2019. - Recheck hemoglobin A1c with am labs - Lantus 30 U , cut in half from home dose with NPO status - Received 10 units regular insulin in the ER, continue ISS with Accu-Cheks Q6H while n.p.o. (8) Neuropathy, peripheral: - Uses a walker at baseline (9) Chronic kidney disease: - Acute kidney injury today, Cr elevated at 2.8, will place on maintenece fluids overnight while NPO with improved cardiac status. - CT abd notes left kidney not identifiable - congenital? Pt reports no histories of abd surgeries. (10) Diabetic gastroparesis: -History of such, possibly worsening SBO as above (11) GERD (gastroesophageal reflux disease): -Famotidine 20 mg IV BID, hold oral pantoprazole with NGT in. (12) Morbid obesity with BMI of 50.0-59.9, adult: -Diet and exercise to be encouraged prior to discharge -BMI of 50.6 (13) DVT prophylaxis: - teds, heparin subcu q8h, if considerations for surgical procedure in then hold heparin CODE: Full Dispo: From home, likely to remain in the hospital x 1-2 days (14) Acute kidney failure: will continue with IVF and closely monitor patient. Admission and Anticipated Discharge Date Admission Date: December 14, 2019 Subjective Patient reports he still feels bloated. He has no new symptoms. Review of Systems Review of Systems: All systems reviewed & are unremarkable except as noted in HPI & below Physical Exam Physical Exam: General: awake, alert, no apparent distress, + morbidly obese, BMI = 50.6 Head: Normocephalic, atraumatic ENT: PERRL, EOMI, no pharyngeal exudate, mucous membranes moist Chest: Clear to auscultation, on room air, no adventitious breath sounds Cardiac: Regular rate and rhythm, no murmur, no JVD, normal peripheral pulses, good capillary refill Abdominal: + Morbidly obese, abdomen appears like a beach ball, + High-pitched tinkling sounds in RUQ and epigastric region, + Tympanic on percussion, + distended, + tense, + tender to palpation in all quadrants, no rebound, guarding. Extremities: Normal inspection, 1+ peripheral edema in BLE, no erythema, calfs nontender to palpation Psych: Normal mood and affect Neuro: AAO x 3, strength intact bilaterally and rated 5/5, no motor deficits, speech is clear, no peripheral sensory deficits Skin: no rash or erythema Results & Data Results & Data ([facility]) Vital Signs (Past 12 Hours) Vital Signs Temp Pulse Pulse Resp BP BP Pulse Ox 12/15/19 20:03 37.1 C 85 20 150/90 H 95 12/15/19 17:42 87 12/15/19 16:00 89 12/15/19 15:27 37.0 C 85 23 142/84 H 95 12/15/19 12:11 92 H 124/68 12/15/19 11:26 36.7 C 92 H 18 124/68 96 PG Care Time/CCT Total # of Minutes Spent Total Time Spent with Patient: Total time spent is greater than 50% in coordination of care (as documented) at patient's floor/unit and/or counseling patient: Coding Level of Care Code 42321 Subseq Hosp Care Lvl 2 Diagnoses SBO (small bowel obstruction) K56.609 CAD (coronary artery disease) I25.10 Associated angina: without angina Coronary Disease-Associated Artery/Lesion type: [place] artery [place] vs. transplanted heart: [place] heart Cardiomyopathy, nonischemic I42.8 Chronic diastolic CHF (congestive heart failure) I50.32 Hypertension I10 Dyslipidemia E78.5 Diabetes type 2, uncontrolled E11.65 Glycemic state: with hyperglycemia Neuropathy, peripheral G62.9 Chronic kidney disease N18.9 Diabetic gastroparesis E11.43; K31.84 GERD (gastroesophageal reflux disease) K21.9 Morbid obesity with BMI of 50.0-59.9, adult E66.01; Z68.43 DVT prophylaxis Z29.9 Acute kidney failure N17.9 Time Spent (min) 35 (1) CAD (coronary artery disease) Associated angina: without angina Coronary Disease-Associated Artery/Lesion type: [place] artery [place] vs. transplanted heart: [place] heart Qualified Code(s): I25.10 - Atherosclerotic heart disease of [place] coronary artery without angina pectoris (2) Diabetes type 2, uncontrolled Glycemic state: with hyperglycemia Qualified Code(s): E11.65 - Type 2 diabetes mellitus with hyperglycemia
[2019-12-16] MEDS: HEPARIN SOD 5,000 UNIT/0.5 ML VIAL SQ SCH ×3 (00:30→17:48)
[2019-12-16] MEDS: INSULIN ASPART 100 UNITS/ML 3 ML PEN SC SCH ×4 (00:31→18:04)
[2019-12-16] MEDS: METOPROLOL TARTRATE 1 MG/ML VIAL IV SCH ×4 (00:32→17:48)
[2019-12-16 06:12] LABS: Hematocrit (blood only) 40.5 % (42-52); Hemoglobin 13.5 g/dL (14.0-18.0); Mean Corpuscular Hemoglobin 27.3 pg (25-34); Mean Corpuscular Hgb Conc 33.3 g/dL (32-36); Mean Corpuscular Volume 81.8 fL (80-100); Mean Platelet Volume 9.9 fL (7.4-10.4); Platelet Count 179 K/uL (130-400); RDW Coefficient of Variation 13.9 % (11.5-14.5); RDW Standard Deviation 41.4 fL (36.4-46.3); Red Blood Count 4.95 M/uL (4.7-6.1); White Blood Count 4.63 K/uL (4.8-10.8)
[2019-12-16 06:48] LABS: Albumin Level 2.6 gm/dl (3.4-5.0); BUN Creatinine Ratio 28.9 (10-20); Creatinine Clr Calc Pharmacy 83.9 ml/min; Est GFR (Non-African American) 52.6; Potassium 3.8 mmol/L (3.5-5.1)
[2019-12-16 06:50] LABS: Albumin Globulin Ratio 0.6 (0.9-2); Bilirubin,Total 0.4 mg/dl (0.2-1); Globulin 4.4 gm/dl (2.5-4.0)
[2019-12-16] MEDS: ASPIRIN 81 MG ECTAB PO SCH (07:40)
[2019-12-16] MEDS: carvediloL 6.25 MG TAB PO SCH ×2 (07:40→20:37)
[2019-12-16] MEDS: POTASSIUM CHLORIDE 10 MEQ in SODIUM CHLORIDE 0.45 % 1,000 ML IV SCH ×2 (08:19→17:55)
[2019-12-16] MEDS: FAMOTIDINE 20 MG in SYRINGE 3 ML IV SCH ×2 (08:20→20:36)
--- NOTE | 2019-12-16 11:57 | Surgery Progress Note ---
Date of Service passed some gas, no abdominal pain, NG - 450ml December 16, 2019 Assessment & Plan (1) SBO (small bowel obstruction): doing better, passed some gas, continue treatment will F/U Supervising Physician Co-Signing Physician Notes PA Supervision Note: I personally saw and examined the patient. I verified all lynn points and agree with FIDENCIO Davis with the following exceptions and/or additions: This patient is a morbidly obese 49-year-old with significant medical history as noted above, here with high-grade small bowel obstruction. Unclear cause as he has no history of abdominal surgeries which would suggest adhesive disease. NG tube placed in the ER with large amounts of fluid withdrawn History and ROS reviewed as above Vitals reviewed Morbidly obese, NAD, NG tube in place Anicteric sclera Regular rate and rhythm, no murmurs gallops rubs Lungs clear auscultation bilaterally, no wheezes crackles or rhonchi Abdomen hypoactive bowel sounds, significantly distended, positive tenderness palpation right side of the abdomen without guarding or rebound, NG tube in place with thick yellow drainage Extremities-1+ pitting edema to the knees bilaterally Labs and CT image personally reviewed by me 49-year-old male with history as above, here with high-grade SBO. -NG tube in place Surgical consultation requested -Maintain gentle IV fluids and replace electrolytes as needed -Check BMP, magnesium, phosphorus in the morning -Plan outlined otherwise as above Subjective Patient seen resting in bed. Feeling somewhat better with NGT placed. Had some diarrhea, no flatus yet. Pain is somewhat improved. Physical Exam Constitutional: WD/WN, vitals as above well developed and well nourished Eyes: PERRL, conjunctivae normal, anicteric sclerae Neck: trachea midline, no thyromegaly Respiratory: normal respiratory effort, lungs clear to auscultation Cardiovascular: RRR, no murmur, no edema Gastrointestinal (Abdomen): Percussion/Palpation: abdomen soft NT, ND BS + Neurologic: awake Psychiatric: Orientation: alert and oriented x 3 Results & Data Vital Signs (Past 12 Hours) Vital Signs Temp Pulse Pulse Resp BP BP Pulse Ox 12/16/19 11:45 37.0 C 90 20 142/92 H 98 12/16/19 08:00 83 12/16/19 07:39 36.7 C 80 20 146/85 H 96 12/16/19 05:55 83 119/84 12/16/19 03:45 36.7 C 83 19 113/68 96 12/16/19 00:32 79 95/59 L 12/16/19 00:25 36.4 C L 79 19 95/59 L 95 12/16/19 00:00 72 Laboratory Results Abnormal lab results 12/15/19 12/15/19 12/15/19 Range/Units 12:00 17:39 19:30 WBC (4.8-10.8) K/uL Hgb (14.0-18.0) g/dL Hct (42-52) % Chloride (98-107) mmol/L BUN (7-18) mg/dl Creatinine (0.6-1.4) mg/dl BUN/Creatinine Ratio (10-20) POC Glucose 165 H 118 H (70-99) mg/dl Calcium (8.5-10.1) mg/dl Albumin (3.4-5.0) gm/dl Globulin (2.5-4.0) gm/dl Albumin/Globulin Ratio (0.9-2) Urine Appearance Cloudy A (Clear) Urine Protein 2+ H (Negative) Urine Glucose (UA) 1+ H (Negative) Urine Ketones Trace H (Negative) U Hyaline Cast (Auto) 10-30 H (0-5) /lpf U Epithel Cells (Auto) 20-30 H (0-5) /lpf 12/16/19 12/16/19 12/16/19 Range/Units 00:06 05:38 05:38 WBC 4.63 L (4.8-10.8) K/uL Hgb 13.5 L (14.0-18.0) g/dL Hct 40.5 L (42-52) % Chloride 110 H (98-107) mmol/L BUN 44 H (7-18) mg/dl Creatinine 1.53 H D (0.6-1.4) mg/dl BUN/Creatinine Ratio 28.9 H (10-20) POC Glucose 106 H (70-99) mg/dl Calcium 8.0 L (8.5-10.1) mg/dl Albumin 2.6 L (3.4-5.0) gm/dl Globulin 4.4 H (2.5-4.0) gm/dl Albumin/Globulin Ratio 0.6 L (0.9-2) Urine Appearance (Clear) Urine Protein (Negative) Urine Glucose (UA) (Negative) Urine Ketones (Negative) U Hyaline Cast (Auto) (0-5) /lpf U Epithel Cells (Auto) (0-5) /lpf
[2019-12-16] MEDS: INSULIN GLARGINE SOLOSTAR 100 UNITS/ML 3 ML PEN SQ SCH (12:10)
[2019-12-16] MEDS ORDERED: SALINE NASAL 225 SPRAYS, GENTAMICIN SULFATE 60 MG, BARCODE IDENTIFIER 0 EA PRN (16:17)
[2019-12-16] MEDS ORDERED: SODIUM CHLORIDE 0.65% NA SOLN 45 ML (OCEAN) ONE (16:19)
[2019-12-16] MEDS ORDERED: NURSING DECISION MEDICATION ONE (16:49)
[2019-12-16] MEDS ORDERED: SODIUM CHLORIDE 0.65% NA SOLN 45 ML (OCEAN) PRN (16:59)
--- NOTE | 2019-12-16 22:39 | Hospitalist Progress Note ---
Date of Service December 16, 2019 Assessment & Plan (1) SBO (small bowel obstruction): -Admit to PCU -Abdomen very tense, tympanic, tender to palpation initially on exam --Pt denies history of abd surgeries. -NG tube placed in the ER, within minutes patient has already had outs equivalent to 2.5 entirely full canisters. -Continue low intermittent suction with serial abd exams: continues to have output. -continue IVF. -General surgery consulted, Dr. Davis -BMP: sodium: has normalized -CT of the abd/pelvis reviewed: 1. Findings are consistent with a high-grade small bowel obstruction, with a possible transition point in the lateral right lower quadrant. This may be on the basis of adhesions, and surgical consultation is advised. 2. No intraperitoneal free air is seen. No focally thick walled or edematous bowel loops are identified. 3. Fluid fills the distal esophagus. Note that this may place the patient risk for aspiration. 4. A normal left kidney is not identified and presumed congenitally versus surgically absent. Clinical correlation will be required. 5. The coronary arteries are densely calcified. Consider nonemergent cardiology follow-up. -Pain control with morphine as needed (2) CAD (coronary artery disease): -Hold oral coreg, will use Lopressor 5 mg IV Q6H while n.p.o. -Holding bumex and metalozone for acute kidney injury-last took these medications this morning -increasing fluids as kidney numbers are worse. (3) Cardiomyopathy, nonischemic: With a history of such in 2018 with resolution, last EF 55% in 07/2018 (4) Chronic diastolic CHF (congestive heart failure): - Last Echo - had a transient nonischemic cardiomyopathy - LV function has improved on last Echo in Jul 2018. - Follows with Dr. Heath as outpt - lopressor as above to replace carvedilol - Hold diuretics with ZAIRE (5) Hypertension: -Blood pressures controlled -Giving IV Lopressor to replace p.o. carvedilol while n.p.o. -Holding diuretics (6) Dyslipidemia: -Hold home atorvastatin while n.p.o. (7) Diabetes type 2, uncontrolled: - A1C = 11.2 in Jul 2019. - Recheck hemoglobin A1c with am labs - Lantus 30 U , cut in half from home dose with NPO status - Received 10 units regular insulin in the ER, continue ISS with Accu-Cheks Q6H while n.p.o. (8) Neuropathy, peripheral: - Uses a walker at baseline (9) Chronic kidney disease: - Acute kidney injury today, Cr elevated at 2.8, will place on maintenece fluids overnight while NPO with improved cardiac status. - CT abd notes left kidney not identifiable - congenital? Pt reports no histories of abd surgeries. (10) Diabetic gastroparesis: -History of such, possibly worsening SBO as above (11) GERD (gastroesophageal reflux disease): -Famotidine 20 mg IV BID, hold oral pantoprazole with NGT in. (12) Morbid obesity with BMI of 50.0-59.9, adult: -Diet and exercise to be encouraged prior to discharge -BMI of 50.6 (13) DVT prophylaxis: - teds, heparin subcu q8h, if considerations for surgical procedure in then hold heparin CODE: Full Dispo: From home, likely to remain in the hospital x 1-2 days (14) Acute kidney failure: will continue with IVF and closely monitor patient. Admission and Anticipated Discharge Date Admission Date: December 14, 2019 Subjective Patient reports no new symptoms at this time. He states he feel is feeling better. He is hungry, he did pass some gas today. He denies any stool at this time. Review of Systems Review of Systems: All systems reviewed & are unremarkable except as noted in HPI & below Physical Exam Physical Exam: General: awake, alert, no apparent distress, + morbidly obese, BMI = 50.6 Head: Normocephalic, atraumatic ENT: PERRL, EOMI, no pharyngeal exudate, mucous membranes moist Chest: Clear to auscultation, on room air, no adventitious breath sounds Cardiac: Regular rate and rhythm, no murmur, no JVD, normal peripheral pulses, good capillary refill Abdominal: + Morbidly obese, abdomen much less distended and less tympanic, no longer tense and softer, no longer tender to palpation, no rebound, guarding. Extremities: Normal inspection, 1+ peripheral edema in BLE, no erythema, calfs nontender to palpation Psych: Normal mood and affect Neuro: AAO x 3, strength intact bilaterally and rated 5/5, no motor deficits, speech is clear, no peripheral sensory deficits Skin: no rash or erythema Results & Data Results & Data ([facility]) Vital Signs (Past 12 Hours) Vital Signs Temp Pulse Pulse Resp BP BP Pulse Ox 12/16/19 20:00 37.1 C 87 16 177/96 H 97 12/16/19 17:48 87 163/96 H 12/16/19 16:02 36.9 C 87 18 163/96 H 95 12/16/19 16:00 90 12/16/19 12:46 90 142/92 H 12/16/19 11:45 37.0 C 90 20 142/92 H 98 PG Care Time/CCT Total # of Minutes Spent Total Time Spent with Patient: Total time spent is greater than 50% in coordination of care (as documented) at patient's floor/unit and/or counseling patient: Coding Level of Care Code 31701 Subseq Hosp Care Lvl 2 Diagnoses SBO (small bowel obstruction) K56.609 CAD (coronary artery disease) I25.10 Associated angina: without angina Coronary Disease-Associated Artery/Lesion type: [place] artery [place] vs. transplanted heart: [place] heart Cardiomyopathy, nonischemic I42.8 Chronic diastolic CHF (congestive heart failure) I50.32 Hypertension I10 Dyslipidemia E78.5 Diabetes type 2, uncontrolled E11.65 Glycemic state: with hyperglycemia Neuropathy, peripheral G62.9 Chronic kidney disease N18.9 Diabetic gastroparesis E11.43; K31.84 GERD (gastroesophageal reflux disease) K21.9 Morbid obesity with BMI of 50.0-59.9, adult E66.01; Z68.43 DVT prophylaxis Z29.9 Acute kidney failure N17.9 Time Spent (min) 25 (1) CAD (coronary artery disease) Associated angina: without angina Coronary Disease-Associated Artery/Lesion type: [place] artery [place] vs. transplanted heart: [place] heart Qualified Code(s): I25.10 - Atherosclerotic heart disease of [place] coronary artery without angina pectoris (2) Diabetes type 2, uncontrolled Glycemic state: with hyperglycemia Qualified Code(s): E11.65 - Type 2 diabetes mellitus with hyperglycemia
[2019-12-17] MEDS: GLUCOSE 40% GEL 15 GM TUBE PO PRN ×2 (00:06→01:21)
[2019-12-17] MEDS: HEPARIN SOD 5,000 UNIT/0.5 ML VIAL SQ SCH ×3 (00:07→16:56)
[2019-12-17] MEDS: METOPROLOL TARTRATE 1 MG/ML VIAL IV SCH ×4 (00:07→17:26)
[2019-12-17] MEDS: INSULIN ASPART 100 UNITS/ML 3 ML PEN SC SCH ×5 (00:08→21:07)
[2019-12-17] MEDS: POTASSIUM CHLORIDE 10 MEQ in D5W AND 1/2NSS 1,000 ML IV SCH ×3 (02:45→23:36)
[2019-12-17 06:12] LABS: Hematocrit (blood only) 41.5 % (42-52); Hemoglobin 13.8 g/dL (14.0-18.0); Mean Corpuscular Hemoglobin 27.2 pg (25-34); Mean Corpuscular Hgb Conc 33.3 g/dL (32-36); Mean Corpuscular Volume 81.9 fL (80-100); Mean Platelet Volume 9.8 fL (7.4-10.4); Platelet Count 189 K/uL (130-400); RDW Coefficient of Variation 13.8 % (11.5-14.5); RDW Standard Deviation 41.2 fL (36.4-46.3); Red Blood Count 5.07 M/uL (4.7-6.1); White Blood Count 5.92 K/uL (4.8-10.8)
[2019-12-17 06:52] LABS: Albumin Globulin Ratio 0.6 (0.9-2); Albumin Level 2.8 gm/dl (3.4-5.0); Bilirubin,Total 0.3 mg/dl (0.2-1); Creatinine Clr Calc Pharmacy 121.2 ml/min; Est GFR (African American) 96.1; Globulin 4.4 gm/dl (2.5-4.0); Potassium 3.7 mmol/L (3.5-5.1); Total Protein 7.2 gm/dl (6.4-8.2)
[2019-12-17] MEDS: POTASSIUM CHLORIDE 10 MEQ in SODIUM CHLORIDE 0.45 % 1,000 ML IV SCH (07:19)
[2019-12-17] MEDS: ASPIRIN 81 MG ECTAB PO SCH (08:20)
[2019-12-17] MEDS: carvediloL 6.25 MG TAB PO SCH ×2 (08:20→21:06)
[2019-12-17] MEDS: INSULIN GLARGINE SOLOSTAR 100 UNITS/ML 3 ML PEN SQ SCH ×3 (08:21→08:40)
[2019-12-17] MEDS: FAMOTIDINE 20 MG in SYRINGE 3 ML IV SCH ×2 (08:28→21:05)
--- NOTE | 2019-12-17 11:10 | Surgery Progress Note ---
Date of Service passed gas and BM, no abdominal pain, no nausea, no vomiting, NG 950ml December 17, 2019 Assessment & Plan (1) SBO (small bowel obstruction): doing better, passed some gas, continue treatment will F/U 12/17/2019 11:11am doing better, passed BM, pull NG tube, D/C [place] clear diet, will F/U Supervising Physician Co-Signing Physician Notes PA Supervision Note: I personally saw and examined the patient. I verified all lynn points and agree with FIDENCIO Davis with the following exceptions and/or additions: This patient is a morbidly obese 49-year-old with significant medical history as noted above, here with high-grade small bowel obstruction. Unclear cause as he has no history of abdominal surgeries which would suggest adhesive disease. NG tube placed in the ER with large amounts of fluid withdrawn History and ROS reviewed as above Vitals reviewed Morbidly obese, NAD, NG tube in place Anicteric sclera Regular rate and rhythm, no murmurs gallops rubs Lungs clear auscultation bilaterally, no wheezes crackles or rhonchi Abdomen hypoactive bowel sounds, significantly distended, positive tenderness palpation right side of the abdomen without guarding or rebound, NG tube in plac e with thick yellow drainage Extremities-1+ pitting edema to the knees bilaterally Labs and CT image personally reviewed by me 49-year-old male with history as above, here with high-grade SBO. -NG tube in place Surgical consultation requested -Maintain gentle IV fluids and replace electrolytes as needed -Check BMP, magnesium, phosphorus in the morning -Plan outlined otherwise as above Subjective Patient seen resting in bed. Feeling somewhat better with NGT placed. Had some diarrhea, no flatus yet. Pain is somewhat improved. Physical Exam Constitutional: WD/WN, vitals as above well developed and well nourished Eyes: PERRL, conjunctivae normal, anicteric sclerae Neck: trachea midline, no thyromegaly Respiratory: normal respiratory effort, lungs clear to auscultation Cardiovascular: RRR, no murmur, no edema Gastrointestinal (Abdomen): Percussion/Palpation: abdomen soft NT, ND , BS + Neurologic: awake Psychiatric: Orientation: alert and oriented x 3 Results & Data Vital Signs (Past 12 Hours) Vital Signs Temp Pulse Pulse Resp BP BP Pulse Ox 06/07/20 08:09 36.9 C 84 18 177/93 H 93 12/17/19 08:00 82 12/17/19 06:04 91 H 133/87 12/17/19 04:26 37.0 C 92 H 18 169/92 H 92 12/17/19 02:57 92 H 12/17/19 00:02 36.7 C 91 H 18 145/83 H 95 Laboratory Results Abnormal lab results 12/16/19 12/16/19 12/17/19 Range/Units 23:54 23:57 00:17 Hgb (14.0-18.0) g/dL Hct (42-52) % BUN (7-18) mg/dl BUN/Creatinine Ratio (10-20) Glucose (70-99) mg/dl POC Glucose 68 L* 65 L* 67 L* (70-99) mg/dl Calcium (8.5-10.1) mg/dl Albumin (3.4-5.0) gm/dl Globulin (2.5-4.0) gm/dl Albumin/Globulin Ratio (0.9-2) 12/17/19 12/17/19 12/17/19 Range/Units 00:19 00:41 00:43 Hgb (14.0-18.0) g/dL Hct (42-52) % BUN (7-18) mg/dl BUN/Creatinine Ratio (10-20) Glucose (70-99) mg/dl POC Glucose 65 L* 68 L* 66 L* (70-99) mg/dl Calcium (8.5-10.1) mg/dl Albumin (3.4-5.0) gm/dl Globulin (2.5-4.0) gm/dl Albumin/Globulin Ratio (0.9-2) 12/17/19 12/17/19 12/17/19 Range/Units 05:56 05:56 06:06 Hgb 13.8 L (14.0-18.0) g/dL Hct 41.5 L (42-52) % BUN 29 H (7-18) mg/dl BUN/Creatinine Ratio 28.0 H (10-20) Glucose 101 H (70-99) mg/dl POC Glucose 109 H (70-99) mg/dl Calcium 8.0 L (8.5-10.1) mg/dl Albumin 2.8 L (3.4-5.0) gm/dl Globulin 4.4 H (2.5-4.0) gm/dl Albumin/Globulin Ratio 0.6 L (0.9-2) 12/17/19 Range/Units 07:28 Hgb (14.0-18.0) g/dL Hct (42-52) % BUN (7-18) mg/dl BUN/Creatinine Ratio (10-20) Glucose (70-99) mg/dl POC Glucose 177 H (70-99) mg/dl Calcium (8.5-10.1) mg/dl Albumin (3.4-5.0) gm/dl Globulin (2.5-4.0) gm/dl Albumin/Globulin Ratio (0.9-2)
[2019-12-17] MEDS ORDERED: Nursing to Pharmacy Communication ONE (13:34)
--- NOTE | 2019-12-17 23:26 | Hospitalist Progress Note ---
Date of Service December 17, 2019 Assessment & Plan (1) SBO (small bowel obstruction): -Admit to PCU -Abdomen very tense, tympanic, tender to palpation initially on exam --Pt denies history of abd surgeries. -NG tube placed in the ER, within minutes patient has already had outs equivalent to 2.5 entirely full canisters. -Continue low intermittent suction with serial abd exams: continues to have output. -continue IVF. -General surgery consulted, Dr. Davis -BMP: sodium: has normalized -CT of the abd/pelvis reviewed: 1. Findings are consistent with a high-grade small bowel obstruction, with a possible transition point in the lateral right lower quadrant. This may be on the basis of adhesions, and surgical consultation is advised. 2. No intraperitoneal free air is seen. No focally thick walled or edematous bowel loops are identified. 3. Fluid fills the distal esophagus. Note that this may place the patient risk for aspiration. 4. A normal left kidney is not identified and presumed congenitally versus surgically absent. Clinical correlation will be required. 5. The coronary arteries are densely calcified. Consider nonemergent cardiology follow-up. -Pain control with morphine as needed Patient has improved and is passing gas and having a BM. will initiate a diet. and will montor. ok to transfer to med/surg (2) CAD (coronary artery disease): -Hold oral coreg, will use Lopressor 5 mg IV Q6H while n.p.o. -Holding bumex and metalozone for acute kidney injury-last took these medications this morning -increasing fluids as kidney numbers are worse. (3) Cardiomyopathy, nonischemic: With a history of such in 2018 with resolution, last EF 55% in 07/2018 (4) Chronic diastolic CHF (congestive heart failure): - Last Echo - had a transient nonischemic cardiomyopathy - LV function has improved on last Echo in Jul 2018. - Follows with Dr. Heath as outpt - lopressor as above to replace carvedilol - Hold diuretics with ZAIRE (5) Hypertension: -Blood pressures controlled -resumed carvedilol. -Holding diuretics (6) Dyslipidemia: -resumed home atorvastatin (7) Diabetes type 2, uncontrolled: - A1C = 11.2 in Jul 2019. - Recheck hemoglobin A1c with am labs - Lantus 30 U , cut in half from home dose with NPO status - Received 10 units regular insulin in the ER, continue ISS with Accu-Cheks Q6H while n.p.o. (8) Neuropathy, peripheral: - Uses a walker at baseline (9) Chronic kidney disease: - Acute kidney injury today, Cr improved with IVF - CT abd notes left kidney not identifiable - congenital? Pt reports no histor ies of abd surgeries. (10) Diabetic gastroparesis: -History of such, possibly worsening SBO as above (11) GERD (gastroesophageal reflux disease): -Famotidine 20 mg IV BID, hold oral pantoprazole may switch on wednesday. (12) Morbid obesity with BMI of 50.0-59.9, adult: -Diet and exercise to be encouraged prior to discharge -BMI of 50.6 (13) DVT prophylaxis: - teds, heparin subcu q8h, if considerations for surgical procedure in then hold heparin CODE: Full Dispo: From home, likely to remain in the hospital x 1-2 days (14) Acute kidney failure: will continue with IVF and closely monitor patient. Admission and Anticipated Discharge Date Admission Date: December 14, 2019 Subjective Patient reports feeling better. He has had a BM and is passing gas today. Review of Systems Review of Systems: All systems reviewed & are unremarkable except as noted in HPI & below Physical Exam Physical Exam: General: awake, alert, no apparent distress, + morbidly obese, BMI = 50.6 Head: Normocephalic, atraumatic ENT: PERRL, EOMI, no pharyngeal exudate, mucous membranes moist Chest: Clear to auscultation, on room air, no adventitious breath sounds Cardiac: Regular rate and rhythm, no murmur, no JVD, normal peripheral pulses, good capillary refill Abdominal: + Morbidly obese, abdomen much less distended and less tympanic, no longer tense and softer, no longer tender to palpation, no rebound, guarding. Extremities: Normal inspection, 1+ peripheral edema in BLE, no erythema, calfs nontender to palpation Psych: Normal mood and affect Neuro: AAO x 3, strength intact bilaterally and rated 5/5, no motor deficits, speech is clear, no peripheral sensory deficits Skin: no rash or erythema Results & Data Results & Data ([facility]) Vital Signs (Past 12 Hours) Vital Signs Temp Pulse Pulse Resp BP BP Pulse Ox 12/17/19 21:04 83 151/87 H 97 12/17/19 15:48 36.5 C 83 21 156/92 H 97 12/17/19 15:00 81 12/17/19 12:00 37.1 C 88 19 147/84 H 96 12/17/19 11:27 147/84 H PG Care Time/CCT Total # of Minutes Spent Total Time Spent with Patient: Total time spent is greater than 50% in coordination of care (as documented) at patient's floor/unit and/or counseling patient: Coding Level of Care Code 84115 Subseq Hosp Care Lvl 2 Diagnoses SBO (small bowel obstruction) K56.609 CAD (coronary artery disease) I25.10 Associated angina: without angina Coronary Disease-Associated Artery/Lesion type: [place] artery [place] vs. transplanted heart: [place] heart Cardiomyopathy, nonischemic I42.8 Chronic diastolic CHF (congestive heart failure) I50.32 Hypertension I10 Dyslipidemia E78.5 Diabetes type 2, uncontrolled E11.65 Glycemic state: with hyperglycemia Neuropathy, peripheral G62.9 Chronic kidney disease N18.9 Diabetic gastroparesis E11.43; K31.84 GERD (gastroesophageal reflux disease) K21.9 Morbid obesity with BMI of 50.0-59.9, adult E66.01; Z68.43 DVT prophylaxis Z29.9 Acute kidney failure N17.9 Time Spent (min) 25 (1) CAD (coronary artery disease) Associated angina: without angina Coronary Disease-Associated Artery/Lesion type: [place] artery [place] vs. transplanted heart: [place] heart Qualified Code(s): I25.10 - Atherosclerotic heart disease of [place] coronary artery without angina pectoris (2) Diabetes type 2, uncontrolled Glycemic state: with hyperglycemia Qualified Code(s): E11.65 - Type 2 diabetes mellitus with hyperglycemia
[2019-12-18] MEDS: METOPROLOL TARTRATE 1 MG/ML VIAL IV SCH (00:40)
[2019-12-18] MEDS: HEPARIN SOD 5,000 UNIT/0.5 ML VIAL SQ SCH ×2 (00:42→08:58)
--- NOTE | 2019-12-18 06:47 | Surgery Progress Note ---
Date of Service December 18, 2019 Assessment & Plan (1) SBO (small bowel obstruction): 12/18/19 We will increase diet to full liquid diet and advance as tolerated Hospital Day#1 here with small bowel obstruction NGT placed yesterday, >5L output so far KUB obtained this AM, reveals distal SBO Plan to keep NGT today. Keep NGT in place until output decreases and pt has return of meaningful bowel function IVF ordered for pt this AM due to large NGT output and bump in Cr this AM, will discuss with hospitalist as pt has CHF No plans for surgical intervention, continue conservative management Pt seen and examined with Dr. Ryan Méndez surgery covering over the weekend Subjective 12/18/19 Patient is doing very well no abdominal complaints diarrhea subsided to the stools are more formed no nausea tolerated some liquids yesterday Patient seen resting in bed. Feeling somewhat better with NGT placed. Had some diarrhea, no flatus yet. Pain is somewhat improved. Physical Exam Physical Exam: Abdomen is completely benign Results & Data Vital Signs (Past 12 Hours) Vital Signs Temp Pulse Resp BP BP Pulse Ox 12/18/19 00:12 36.6 C 80 19 141/90 H 93 12/17/19 21:04 83 151/87 H 97 PG Care Time/CCT Total # of Minutes Spent Total Time Spent with Patient: Total time spent is greater than 50% in coordination of care (as documented) at patient's floor/unit and/or counseling patient: Coding Level of Care Code 33931 Subseq Hosp Care Lvl 3 Diagnoses SBO (small bowel obstruction) K56.609
[2019-12-18] MEDS: POTASSIUM CHLORIDE 10 MEQ in D5W AND 1/2NSS 1,000 ML IV SCH (08:56)
[2019-12-18] MEDS: INSULIN GLARGINE SOLOSTAR 100 UNITS/ML 3 ML PEN SQ SCH (09:00)
[2019-12-18] MEDS ORDERED: ATORVASTATIN 20 MG TAB PO SCH (09:00)
[2019-12-18] MEDS ORDERED: ASPIRIN 81 MG ECTAB PO SCH (09:00)
[2019-12-18] MEDS: INSULIN ASPART 100 UNITS/ML 3 ML PEN SC SCH ×2 (09:01→13:24)
[2019-12-18] MEDS: FAMOTIDINE 20 MG in SYRINGE 3 ML IV SCH (09:24)
[2019-12-18] MEDS: carvediloL 6.25 MG TAB PO SCH (10:18)
--- NOTE | 2019-12-18 16:25 | Discharge Summary ---
Date of Service December 18, 2019 Admission HPI Per Admitting Provider This is a 49 yo M with PMHx of CAD, nonischemic cardiomyopathy, HTN, HLD, chronic diastolic CHF, DM type II, insulin-dependent, neuropathy, morbid obesity with BMI of 50.6, history of diabetic foot ulcers, CKD stage III, GERD, diabetic gastroparesis. Pt presents with acute onset of abdominal pain and diarrhea and found to have a high-grade small bowel obstruction on CT abd/pelvis. Patient notes that his belly began to feel more distended and swollen about 2 to 3 days ago however it was not painful. He reports his last time he ate was over 24 hours ago but has been able to drink some fluids without any nausea or vomiting. His abdominal pain got worse late last evening into this morning. He had developed diarrhea about 3 days ago, proceeded to take OTC antidiarrheal tablets a few times to help resolve this. He has not had any diarrhea today. He denies any bright red blood or dark tarry stools. He denies any history of abdominal surgeries in the past. He typically ambulates with the use of a cane due to peripheral neuropathy in his feet. He denies any current ulcerations on his feet, ankles or on his buttocks from sedentary lifestyle. He uses Bumex and metolazone as needed for swelling in his feet, last taken this morning, but is unable to tell me a dry weight, he does not routinely check his weight. Principal Diagnosis Small bowel obstruction Discharge Exam Constitutional WD/WN, vitals as above Eyes EOM intact bilaterally; no conjunctival abnormality ENMT external ear and nose normal, oropharynx normal Neck trachea midline, no thyromegaly normal visual inspection Respiratory normal respiratory effort, lungs clear to auscultation no respiratory distress Cardiovascular RRR, no murmur, no edema Gastrointestinal (Abdomen) Inspection/Auscultation: abdomen normal to inspection; abdomen not distended Musculoskeletal no cyanosis or clubbing, extremities motor strength 5/5 Skin no rashes, warm and dry Neurologic moves all extremities and awake Psychiatric Orientation: alert, oriented to person and cooperative Discharge Data Allergies Allergy/AdvReac Type Severity Reaction Status Date / Time No Known Allergies Allergy Verified 12/14/19 15:04 Consultations 12/14/19 15:02 ED Decision to Admit Stat 12/14/19 18:35 Consult Case Management - Discharge Planning Routine Consult General Surgery Routine Ordered Studies 12/14/19 13:41 CT abd pelvis wo con Stat Hospital Course (1) SBO (small bowel obstruction): CT of the abd/pelvis showed a high-grade small bowel obstruction, with a possible transition point in the lateral right lower quadrant. This may be on the basis of adhesions. - Surgery consulted: No surgical needs - Resolved with conservative care. Unsure why he had this happen as he denies prior abdominal surgery. Will follow up with PCP and GI as outpatient for any further investigation. (2) CAD (coronary artery disease): Stable. No chest pain noted during admission or day of discharge. - Return to home meds on discharge - Will need close follow up of Bumex/metolazone as he often presents mildly pre- renal. (3) Cardiomyopathy, nonischemic: With a history of such in 2017 with resolution, last EF 55% in 07/2018 (4) Chronic diastolic CHF (congestive heart failure): - Last Echo - had a transient nonischemic cardiomyopathy - LV function has improved on last Echo in Jul 2018. - Follows with Dr. Heath as outpt - lopressor as above to replace carvedilol - Hold diuretics with ZAIRE (5) Hypertension: -Blood pressures controlled -resumed carvedilol. -Holding diuretics (6) Dyslipidemia: -resumed home atorvastatin (7) Diabetes type 2, uncontrolled: A1C = 11.2 in Jul 2019. Now 12.1%. - Continue home regimen: Follow up with PCP. (8) Neuropathy, peripheral: - Uses a walker at baseline (9) Chronic kidney disease: - Acute kidney injury today, Cr improved with IVF - CT abd notes left kidney not identifiable - congenital? Pt reports no histories of abdominal surgeries. (10) Diabetic gastroparesis: -History of such, possibly worsening SBO as above (11) GERD (gastroesophageal reflux disease): -Famotidine 20 mg IV BID, hold oral pantoprazole may switch on wednesday. (12) Morbid obesity with BMI of 50.0-59.9, adult: -Diet and exercise to be encouraged prior to discharge -BMI of 50.6 (13) DVT prophylaxis: - teds, heparin subcu q8h, if considerations for surgical procedure in then hold heparin CODE: Full (14) Acute kidney failure: will continue with IVF and closely monitor patient. Total Time Total Time Spent Total Time Spent (In Minutes): 35 Discharge Plan Discharge Items Patient Disposition: Home - Self-Care Reason For Visit: SMALL BOWEL OBSTRUCTION Discharge Diagnosis: Small bowel obstruction Activity: Resume your previous activity Non-emergency contact: Primary Care Provider and Hydramatic Mechanic Call non-emergency contact if: your pain is not controlled, your pain is worsening and your temperature is above 101 Follow-up/Referrals: Keegan Trinidad DO [Physician] - 12/28/19 9:00 am (Please follow up with Dr. Trinidad to see if there is any further need for testing for a reason for your small bowel obstruction.) Idris Moreno III, MD [Primary Care Provider] - 12/25/19 2:00 pm (Please, follow up at Dr. Moreno's office with his associate, Jes CARTER, on WednesdayDecember 24 at 2:00 pm. *If you need to change this appointment, call the office at [phone].) Diet: Carb Consistent or DM2 and Heart Healthy Diet Texture: Easy to Chew Addtl Attending Provider Instructions: You were admitted to the hospital for a small bowel obstruction. This is when your GI tract has a kink in it that prevents passage of food and waste contents. In over half the cases, the kink resolves itself and there is no need for surgery. This is what occurred for you, and this is good news! You were eating well without any issues by discharge and were having passage of flatus (passing gas) and stool. Many times, we do not find a particular reason this happened, but sometimes it can be caused by scarring in the abdomen or even cancer. I do not think this is the case; however, I would like you to follow up with your PCP (Dr. Moreno) as well as the GI doctor you previously saw (Dr. Trinidad or possibly Karen Hicks) to see if any further testing is warranted. Please call your PCP or come back to the hospital if you have any extra pain, bloating, nausea, vomiting, or other concerning symptoms. Unfortunately, this is an issue that can come back at any time, so if the symptoms recur, it is best to contact a healthcare provider as the small bowel obstruction may be back. Pending Studies at Discharge: No Stand-Alone Forms: My [facility] [place], Smoking Cessation Medications and DC Order Prescriptions: Continued carvedilol 6.25 mg tablet 6.25 mg PO BID Qty: 180 RF: 1 bumetanide 2 mg tablet 2 mg PO BID PRN (Reason: Weight Gain) Qty: 60 RF: 5 insulin aspart U-100 100 unit/mL (3 mL) insulin pen 10 units SQ TID Qty: 15 RF: 11 (DME) OneTouch Verio test strips Strip See Dose Instructions .ROUTE .MEDSUPPLY Qty: 100 RF: 11 (DME) pen needle, diabetic [BD Ultra-Fine [place] Pen Needle] 32 gauge x 5/32" needle See Dose Instructions .ROUTE .MEDSUPPLY Qty: 100 RF: 5 tramadol 50 mg tablet 50 mg PO BID PRN (Reason: pain) Qty: 60 RF: 0 metolazone 5 mg tablet 5 mg PO DAILY PRN (Reason: weight gain) Qty: 30 RF: 5 acidophilus-pectin, citrus 1 cap PO QAM RF: 0 (DME) pen needle, diabetic [Unifine Pentips] 32 gauge x 1/4" needle See Dose Instructions .ROUTE .MEDSUPPLY Qty: 50 RF: 0 (DME) pen needle, diabetic [BD Ultra-Fine Micro Pen Needle] 32 gauge x 1/4" needle See Dose Instructions .ROUTE .MEDSUPPLY Qty: 50 RF: 0 (DME) lancets [OneTouch Delica Lancets] 30 gauge misc See Dose Instructions .ROUTE .MEDSUPPLY Qty: 25 RF: 0 aspirin 81 mg Tablet,Delayed Release (Dr/Ec) 81 mg PO QAM RF: 0 Lantus Solostar U-100 Insulin 100 unit/mL (3 mL) Insulin Pen 60 unit SUBCUT QAM RF: 0 atorvastatin [Lipitor] 20 mg tablet 20 mg PO QAM RF: 0 pantoprazole 40 mg tablet,delayed release (DR/EC) 40 mg PO QAM RF: 0 Discharge Orders: Discharge Order (Routine); Ordered 12/18/19 Ordered By: Iftikhar Hernandez/Other Patient Handouts: Diabetes Inspect Feet Admission Data Admit Date/Time: 12/14/19 15:34 Attending Provider: Iftikhar Baig Admit Provider: Monica Lewis Primary Care Provider: Idris Moreno III Other Providers: Ye Davis ; Iftikhar Baig Other Interventions: Discharge Summary Assessment (RN) Last Done: 12/18/19 15:18 Coding Level of Care Code D/C Day Management >30 mins Diagnoses SBO (small bowel obstruction) K56.609 CAD (coronary artery disease) I25.10 Coronary Disease-Associated Artery/Lesion type: [place] artery [place] vs. transplanted heart: [place] heart Associated angina: without angina Cardiomyopathy, nonischemic I42.8 Chronic diastolic CHF (congestive heart failure) I50.32 Hypertension I10 Dyslipidemia E78.5 Diabetes type 2, uncontrolled E11.65 Glycemic state: with hyperglycemia Neuropathy, peripheral G62.9 Chronic kidney disease N18.9 Diabetic gastroparesis E11.43; K31.84 GERD (gastroesophageal reflux disease) K21.9 Morbid obesity with BMI of 50.0-59.9, adult E66.01; Z68.43 DVT prophylaxis Z29.9 Acute kidney failure N17.9
[2019-12-19] MEDS ORDERED: PANTOprazole 40 MG TAB PO SCH (09:00)
== END 2019-12-18 17:31 | disposition home or self-care (01) | DRG 389 ==
LOC: ED 13:27 → 2S 15:34 → SUATTDRO 15:34 → 2S 17:36 → 3E 12-17 20:06

== ENCOUNTER 2020-03-28 20:54 | Inpatient (IN) ==
[2020-03-28] MEDS ORDERED: cefTRIAXone SODIUM 2,000 MG/70 ML BAG IV STA (21:49)
[2020-03-28 21:56] LABS: Basophils # (auto) 0.02 K/uL (0-0.2); Basophils % (auto) 0.2 %; Eosinophils # (auto) 0.23 K/uL (0-0.5); Eosinophils % (auto) 2.7 %; Hematocrit (blood only) 40.5 % (42-52); Hemoglobin 13.6 g/dL (14.0-18.0); Immature Granulocytes # (auto) 0.02 K/uL (0.00-0.02); Immature Granulocytes % (auto) 0.2 %; Lymphocytes # (auto) 1.35 K/uL (1.2-3.4); Mean Corpuscular Hemoglobin 28.9 pg (25-34); Mean Corpuscular Hgb Conc 33.6 g/dL (32-36); Mean Platelet Volume 9.6 fL (7.4-10.4); Monocytes # (auto) 0.59 K/uL (0.11-0.59); Neutrophils # (auto) 6.21 K/uL (1.4-6.5); Neutrophils % (auto) 73.9 %; Platelet Count 231 K/uL (130-400); RDW Standard Deviation 44.2 fL (36.4-46.3); Red Blood Count 4.71 M/uL (4.7-6.1); White Blood Count 8.42 K/uL (4.8-10.8)
[2020-03-28 22:04] LABS: Albumin Level 3.3 gm/dl (3.4-5.0); BUN Creatinine Ratio 20.3 (10-20); Calcium 9.4 mg/dl (8.5-10.1); Creatinine Clr Calc Pharmacy 90.5 ml/min; Est GFR (African American) 63.5; Est GFR (Non-African American) 54.8; Magnesium 1.9 mg/dl (1.8-2.4)
[2020-03-28] MEDS ORDERED: VANCOMYCIN HCL 2,500 MG in SODIUM CHLORIDE 0.9% 500 ML IV ONE (22:04)
[2020-03-28] MEDS ORDERED: VANCOMYCIN CONSULT ACTIVE PRN (22:04)
[2020-03-28 22:07] LABS: Albumin Globulin Ratio 0.7 (0.9-2); Bilirubin,Total 0.5 mg/dl (0.2-1); Globulin 4.6 gm/dl (2.5-4.0); Total Protein 7.9 gm/dl (6.4-8.2)
[2020-03-28 22:08] LABS: Prothrombin Time 10.8 Seconds (9.0-12.0)
[2020-03-28] MEDS ORDERED: SODIUM CHLORIDE 0.9% 1000ML 1,000 ML IV ONE (22:21)
--- NOTE | 2020-03-28 22:27 | Emergency Department Note ---
History of Present Illness General Chief complaint: Infection, Wound Stated complaint: SORE SPOT ON THIGH Time Seen by Provider: 03/28/20 21:29 History of Present Illness Maximum Pain Intensity: 2 This 49-year-old diabetic presents to the ER complaining of worsening right thigh infection who was seen here 2 days ago and placed on doxycycline Location: Right thigh Quality: Swollen Severity: Moderate Duration: Past 4 days Timing: Started 4 days ago Context: Symptoms got worse and patient came in Modifying factors: better with nothing; worse with palpation Patient states he has a history of MRSA. Patient states the redness is gotten much worse. There is minimal drainage from the area. Patient denies chest pain, dyspnea, fevers, testicular pain, penile pain, groin pain, abdominal pain, nausea, vomiting, diarrhea. Blood sugars are in the 300s. Home Medications Home Medications Medication Instructions Recorded Confirmed Type aspirin 81 mg PO QAM 04/03/18 03/28/20 History lancets 30 gauge #25 ea 04/12/19 03/28/20 History pen needle, diabetic 32 gauge x #50 ea 04/12/19 03/28/20 History 1/4" pen needle, diabetic 32 gauge x #50 ea 04/12/19 03/28/20 History 1/4" atorvastatin [Lipitor] 20 mg PO QAM 08/10/19 03/28/20 History pantoprazole 40 mg PO QAM 08/10/19 03/28/20 History blood sugar diagnostic #100 ea 10/31/19 03/28/20 Rx pen needle, diabetic 32 gauge x #100 ea 11/01/19 03/28/20 Rx /32" ascorbate calcium (vitamin C) 500 500 mg PO QAM 12/25/19 03/28/20 History mg tablet carvedilol 6.25 mg tablet 6.25 mg PO BID #180 tab 01/16/20 03/28/20 Rx insulin glargine 100 unit/mL (3 60 unit SUBCUT QAM #15 ml 01/30/20 03/28/20 Rx mL) subcutaneous pen Metamucil 1 tbsp PO QAM 01/31/20 03/28/20 History Probiotic Blend 1 cap PO QAM 01/31/20 03/28/20 History tramadol 50 mg tablet 50 mg PO BID PRN #60 tab 02/26/20 03/28/20 Rx insulin aspart U-100 100 unit/mL 10 unit SQ TID #15 ml 03/07/20 03/28/20 Rx (3 mL) subcutaneous pen bumetanide 2 mg tablet 2 mg PO BID PRN #60 tab 03/13/20 03/28/20 Rx metolazone 5 mg tablet 5 mg PO DAILY PRN #30 tab 03/13/20 03/28/20 Rx doxycycline hyclate 100 mg PO BID 7 Days #14 cap 03/25/20 03/28/20 Rx Allergies Allergy/AdvReac Type Severity Reaction Status Date / Time No Known Allergies Allergy Verified 03/28/20 23:04 Past Med/Surg History Medical History Albuminuria CAD (coronary artery disease) Cardiomyopathy, nonischemic CHF (congestive heart failure) Chronic back pain CKD (chronic kidney disease) Diabetes Diabetic gastroparesis Diabetic peripheral neuropathy GERD (gastroesophageal reflux disease) History of anesthesia reaction woke up during last colonoscopy 2017 HLD (hyperlipidemia) HTN (hypertension) Hx MRSA infection Iron deficiency anemia Morbid obesity with BMI of 50.0-59.9, adult Myocardial infarction "silent" between the time frame of [id number] ??--follows with [facility] Non-ischemic cardiomyopathy Orthostatic hypotension Peripheral edema Renal agenesis, 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 Family History Family/Other Colon cancer Father Prostate cancer Diabetes Hypertension Brother Diabetes Mother Diabetes Grandfather (Paternal) Family hx of colon cancer Other No family history of adverse response to anesthesia No significant family history Social History Smoking Status: Never smoker Second Hand Exposure: No; Hx Alcohol Use: Yes Alcohol type: beer Hx Substance Use: No Preferred Language: Macanese Communication Ability: Effective Visual Impairment: Limited Hearing Ability: Normal Respiratory Director Required: No Beliefs That Will Affect Care: None marital status: Single Current Living Situation: Parent current occupational status: employed Feels Safe at Home: Yes during the past year weight has: remained stable Review of Systems A total of 10 systems reviewed and were otherwise negative Physical Exam Vital Signs Vital Signs - 24 hr 03/28/20 21:01 03/28/20 22:00 03/28/20 22:02 Temperature 37.0 C Temperature Source Oral Pulse Rate 94 H Pulse Rate [Right Finger] Respiratory Rate 20 Respiratory Effort / Characteristics Non-Labored Spontaneous Non-Labored Respiratory Depth Normal Respiratory Pattern Blood Pressure 170/87 H Blood Pressure [Right Arm] Blood Pressure Mean 114 Blood Pressure Mean [Right Arm] Blood Pressure Position Sitting Pulse Oximetry 95 97 Oxygen Delivery Method Room Air Room Air Sepsis Recent Fever Within 48 Hours No Sepsis New/Unexplained Change in Mental Status No Sepsis Action Taken by Nursing No Action Required 03/28/20 22:15 03/28/20 22:51 Temperature Temperature Source Pulse Rate Pulse Rate [Right Finger] 86 88 Respiratory Rate 20 18 Respiratory Effort / Characteristics Spontaneous Non-Labored Respiratory Depth Normal Normal Respiratory Pattern Regular Blood Pressure Blood Pressure [Right Arm] 151/82 H 181/91 H Blood Pressure Mean Blood Pressure Mean [Right Arm] 105 121 Blood Pressure Position Pulse Oximetry 97 95 Oxygen Delivery Method Room Air Room Air Sepsis Recent Fever Within 48 Hours Sepsis New/Unexplained Change in Mental Status Sepsis Action Taken by Nursing VITALS: Vitals are noted on the nurse's note and reviewed by myself. Vital signs stable. GENERAL: Pleasant male, in no acute distress, nondiaphoretic, well-developed wel l-nourished. SKIN: Capillary reflex less than 2 seconds. Right thigh with central induration with minimal drainage with extensive surrounding cellulitis that is tender to palpation concerning for infection HEENT: Normocephalic. PERRLA. EOMI. Nares patent. Mucous membranes moist. Neck is supple without nuchal rigidity. HEART: Regular rate and rhythm LUNGS: Clear to auscultation bilaterally without wheezes, rales or rhonchi. No retractions or accessory muscle use. ABDOMEN: Positive bowel sounds x 4. Normal tympanic percussion. Soft, nontender, without masses or organomegaly. Bryson sign negative. No guarding or rebound tenderness. No CVA tenderness MUSCULOSKELETAL: No gross musculoskeletal defects. NEURO: Patient was alert and oriented to person place and time. Normal sensati on to light and sharp touch. No focal neurological deficits. Course Administered Medications Vancomycin HCl 2,500 mg/ (Sodium Chloride) 550 mls @ 200 mls/hr IV NOW ONE Stop: 03/29/20 00:48 Last Admin: 03/28/20 22:51 Dose: 200 mls/hr Documented by: [id number] Discontinued Medications Ceftriaxone Sodium (Rocephin) 2,000 mg in 70 mls @ 140 mls/hr IV NOW STA Stop: 03/28/20 22:18 Last Infusion: 03/28/20 22:47 Dose: 0 mls/hr Documented by: [id number] Admin: 03/28/20 22:17 Dose: 140 mls/hr Documented by: [id number] Sodium Chloride (Nss 1000ml) 1,000 mls @ 999 mls/hr IV .Q1H1M ONE Stop: 03/28/20 23:21 Last Infusion: 03/29/20 00:07 Dose: 0 mls/hr Documented by: [id number] Admin: 03/28/20 22:51 Dose: 999 mls/hr Documented by: [id number] Medical Decision Making Medical Records Attestation: I reviewed the patient's medical records. Home Medications Current Medication List: was personally reviewed by me Laboratory Data Attestation: I reviewed the patient's lab results. Result diagrams: 03/28/20 21:30 03/28/20 21:30 Lab Results 03/28/20 03/28/20 03/28/20 Range/Units 21:30 21:30 21:30 WBC 8.42 (4.8-10.8) K/uL RBC 4.71 (4.7-6.1) M/uL Hgb 13.6 L (14.0-18.0) g/dL Hct 40.5 L (42-52) % MCV 86.0 (80-100) fL MCH 28.9 (25-34) pg MCHC 33.6 (32-36) g/dL RDW Std Deviation 44.2 (36.4-46.3) fL RDW Coeff of Soledad 14.0 (11.5-14.5) % Plt Count 231 (130-400) K/uL MPV 9.6 (7.4-10.4) fL Immature Gran % (Auto) 0.2 % Neut % (Auto) 73.9 % Lymph % (Auto) 16.0 % Mobile % (Auto) 7.0 % Eos % (Auto) 2.7 % Baso % (Auto) 0.2 % Neut # (Auto) 6.21 (1.4-6.5) K/uL Lymph # (Auto) 1.35 (1.2-3.4) K/uL Mobile # (Auto) 0.59 (0.11-0.59) K/uL Eos # (Auto) 0.23 (0-0.5) K/uL Baso # (Auto) 0.02 (0-0.2) K/uL Immature Gran # (Auto) 0.02 (0.00-0.02) K/uL PT 10.8 (9.0-12.0) Seconds INR 1.0 (0.9-1.1) APTT 28.0 (21.0-31.0) Seconds PTT Ratio 1.0 Sodium 138 (136-145) mmol/L Potassium 4.0 (3.5-5.1) mmol/L Chloride 102 (98-107) mmol/L Carbon Dioxide 30 (21-32) mmol/L Anion Gap 6.0 (3-11) BUN 30 H (7-18) mg/dl Creatinine 1.48 H (0.6-1.4) mg/dl Est Cr Clr Drug Dosing 90.5 ml/min Est GFR ( Amer) 63.5 Est GFR (Non-Af Amer) 54.8 BUN/Creatinine Ratio 20.3 H (10-20) Glucose 261 H (70-99) mg/dl Lactate (0.4-2.0) mmol/L Calcium 9.4 (8.5-10.1) mg/dl Magnesium 1.9 (1.8-2.4) mg/dl Total Bilirubin 0.5 (0.2-1) mg/dl AST 22 (15-37) U/L ALT 21 (12-78) U/L Alkaline Phosphatase 96 (45-117) U/L Total Protein 7.9 (6.4-8.2) gm/dl Albumin 3.3 L (3.4-5.0) gm/dl Globulin 4.6 H (2.5-4.0) gm/dl Albumin/Globulin Ratio 0.7 L (0.9-2) 03/28/20 Range/Units 22:14 WBC (4.8-10.8) K/uL RBC (4.7-6.1) M/uL Hgb (14.0-18.0) g/dL Hct (42-52) % MCV (80-100) fL MCH (25-34) pg MCHC (32-36) g/dL RDW Std Deviation (36.4-46.3) fL RDW Coeff of Soledad (11.5-14.5) % Plt Count (130-400) K/uL MPV (7.4-10.4) fL Immature Gran % (Auto) % Neut % (Auto) % Lymph % (Auto) % Mobile % (Auto) % Eos % (Auto) % Baso % (Auto) % Neut # (Auto) (1.4-6.5) K/uL Lymph # (Auto) (1.2-3.4) K/uL Mobile # (Auto) (0.11-0.59) K/uL Eos # (Auto) (0-0.5) K/uL Baso # (Auto) (0-0.2) K/uL Immature Gran # (Auto) (0.00-0.02) K/uL PT (9.0-12.0) Seconds INR (0.9-1.1) APTT (21.0-31.0) Seconds PTT Ratio Sodium (136-145) mmol/L Potassium (3.5-5.1) mmol/L Chloride (98-107) mmol/L Carbon Dioxide (21-32) mmol/L Anion Gap (3-11) BUN (7-18) mg/dl Creatinine (0.6-1.4) mg/dl Est Cr Clr Drug Dosing ml/min Est GFR ( Amer) Est GFR (Non-Af Amer) BUN/Creatinine Ratio (10-20) Glucose (70-99) mg/dl Lactate 0.9 (0.4-2.0) mmol/L Calcium (8.5-10.1) mg/dl Magnesium (1.8-2.4) mg/dl Total Bilirubin (0.2-1) mg/dl AST (15-37) U/L ALT (12-78) U/L Alkaline Phosphatase (45-117) U/L Total Protein (6.4-8.2) gm/dl Albumin (3.4-5.0) gm/dl Globulin (2.5-4.0) gm/dl Albumin/Globulin Ratio (0.9-2) Imaging Data Attestation: I personally reviewed and interpreted this imaging study as follows: Blood Pressure Blood Pressure Findings: Elevated blood pressure Blood Pressure Disposition: Referred to patients primary care provider [facility] Narrative Prior records reviewed and summarized as above. Triage Nursing notes reviewed. The patient's history was concerning for swelling and redness of the skin. Differential diagnosis: Etiologies such as cellulitis, abscess, MRSA infection, DVT, necrotizing fasciitis, dermatitis, drug eruption, as well as others were entertained.. Physical examination: The physical examination was consistent with cellulitis ER treatment provided: Rocephin, vancomycin, IV fluids On reassessment the patient felt better. Diagnostics interpreted by me: EKG ordered for weakness EKG: Normal sinus, normal intervals, septal infarct, no acute ST-T wave changes. Impression normal sinus rhythm interpreted by myself I think arrhythmia is unlikely. EKG shows normal sinus rhythm with no interval abnormalities such as QT prolongation or WPW. There are no findings to suggest Brugada syndrome. Cardiac monitoring in the emergency department reveals no tachycardic or bradycardic dysrhythmia. Hypertrophic cardiomyopathy was considered but there are no clear historical elements pointing toward this. EKG is not suggestive. The QRS voltage is not extremely large. The labs revealed hyperglycemia without DKA. Blood cultures pending. Wound cultures pending Imaging studies: Chest x-ray with cardiomegaly without overt consolidation, pneumothorax or free air per my interpretation US EXTREMITY: Soft tissue swelling and edema in the extremity. Complex fluid collections measuring 1 x 0.9 x 1.3 cm and 0.4 x 2 x 0.7 cm in the medial thigh. Some hyperemia in the periphery of the lateral collection. Soft tissue hyperemia. US VENOUS RIGHT LOWER EXTREMITY: No DVT demonstrated. Radiologist: Dimitrios Jimenes M.D. Consultation: A consultation was placed with Dr. Sullivan, hospitalist. The case was discussed and diagnostics were reviewed. The patient was evaluated in the ER for further treatment. This appears to be extensive cellulitis who is failed outpatient treatment. Patient was given IV antibiotics. Medicine was consulted. He will be evaluated for admission. Prior wound culture was reviewed and is sensitive to vancomycin. MRSA was present. By the evaluation outlined above emergent etiologies such necrotizing fasciitis, DVT, as well as others were deemed relatively unlikely. The pt informed about the findings as listed above. All questions were answered and pleased with the treatment. Return instructions were outlined and the patient was discharged in stable condition. The chart was completed utilizing [employer] Speech voice recognition software. Grammatical errors, random word insertions, pronoun errors, and incomplete sentences are an occassional consequence of this system due to software limitations, ambient noise, and hardware issues. Any formal questions or concerns about the content, text, or information contained within the body of this dictation should be directly addressed to the physician store administrative assistant for clarification. Impression & Plan Cellulitis of right thigh, Failure of outpatient treatment, Acute hyperglycemia Discharge Plan Visit Data Chief Complaint: Infection, Wound Stated Complaint: SORE SPOT ON THIGH ED Provider: Андрей Alba ED Midlevel Provider: Sharon Wallace Discharge Problem: Cellulitis of right thigh, Failure of outpatient treatment, Acute hyperglycemia Patient Disposition: Being Evaluated by Hospitalist Condition: Fair Forms Stand Alone Forms: [facility] [place] Tools Prescriptions Prescriptions: No Action (DME) OneTouch Verio test strips Strip See Dose Instructions .ROUTE .MEDSUPPLY Qty: 100 RF: 11 (DME) pen needle, diabetic [BD Ultra-Fine [place] Pen Needle] 32 gauge x 5/32" needle See Dose Instructions .ROUTE .MEDSUPPLY Qty: 100 RF: 5 carvedilol 6.25 mg tablet 6.25 mg PO BID Qty: 180 RF: 3 Lantus Solostar U-100 Insulin 100 unit/mL (3 mL) insulin pen 60 unit SUBCUT QAM Qty: 15 RF: 11 tramadol 50 mg tablet 50 mg PO BID PRN (Reason: pain) Qty: 60 RF: 0 insulin aspart U-100 100 unit/mL (3 mL) insulin pen 10 unit SQ TID Qty: 15 RF: 11 bumetanide 2 mg tablet 2 mg PO BID PRN (Reason: Weight Gain) Qty: 60 RF: 5 metolazone 5 mg tablet 5 mg PO DAILY PRN (Reason: weight gain) Qty: 30 RF: 11 ascorbate calcium (vitamin C) 500 mg tablet 500 mg PO QAM RF: 0 (DME) pen needle, diabetic [Unifine Pentips] 32 gauge x 1/4" needle See Dose Instructions .ROUTE .MEDSUPPLY Qty: 50 RF: 0 (DME) pen needle, diabetic [BD Ultra-Fine Micro Pen Needle] 32 gauge x 1/4" needle See Dose Instructions .ROUTE .MEDSUPPLY Qty: 50 RF: 0 (DME) lancets [OneTouch Delica Lancets] 30 gauge misc See Dose Instructions .ROUTE .MEDSUPPLY Qty: 25 RF: 0 aspirin 81 mg Tablet,Delayed Release (Dr/Ec) 81 mg PO QAM RF: 0 atorvastatin [Lipitor] 20 mg tablet 20 mg PO QAM RF: 0 pantoprazole 40 mg tablet,delayed release (DR/EC) 40 mg PO QAM RF: 0 Metamucil 3.4 gram/5.4 gram Powder 1 tbsp PO QAM RF: 0 Probiotic Blend 2 billion cell-50 mg Capsule 1 cap PO QAM RF: 0 doxycycline hyclate 100 mg capsule 100 mg PO BID 7 Days Qty: 14 RF: 0 Referrals Referrals: Idris Moreno III, MD [Primary Care Provider] -
[2020-03-29 00:45] LABS: Appearance Urine Clear (Clear); Bacteria Urine Automated Negative (Negative); Bilirubin Urine Negative (Negative); Blood Urine Negative (Negative); Color Urine Yellow; Epithelial Cell Urine Auto 0-5 /lpf (0-5); Glucose Urine UA 2+ (Negative); Ketones Urine Negative (Negative); Leukocyte Esterase Urine Negative (Negative); Nitrite Urine Negative (Negative); Protein Urine 2+ (Negative); RBC Urine Automated 0-4 /hpf (0-4); Specific Gravity Urine 1.015 (1.000-1.030); Urobilinogen Urine Negative (Negative); WBC Urine Automated 0 /hpf (0-5); pH Urine 5.5 (4.5-7.5)
--- NOTE | 2020-03-29 00:52 | History & Physical Report ---
Date of Service March 29, 2020 Assessment & Plan (1) Abscess of right thigh: Abscess of right thigh/history of MRSA- Continue vancomycin IV begun in the ED. Add Zosyn IV to cover other pathogens associated with diabetes mellitus Present on Admission?: Yes (2) Diabetes mellitus type 2, insulin dependent: Uncontrolled. Continue usual dosing of insulin, glargine 60 units subcu every morning. Hold standing doses of NovoLog 3 times daily. Placed on Accu-Cheks before meals and at bedtime with NovoLog coverage per scale Check hemoglobin A1c Present on Admission?: Yes (3) CAD (coronary artery disease): CAD/hypertension/nonischemic cardiomyopathy/chronic diastolic CHF- Continue aspirin, carvedilol. Hold PRN metolazone and bumetanide Present on Admission?: Yes (4) Chronic diastolic CHF (congestive heart failure): (5) Hypertension: (6) Cardiomyopathy, nonischemic: (7) Dyslipidemia: Continue atorvastatin 20 mg daily Present on Admission?: Yes History of Present Illness Chief Complaint: Patient presents to the emergency department with complaint of a worsening right thigh infection that he was initially seen in the emergency department for on 03/25, and had been placed on oral doxycycline. Primary Care Provider: Idris Moreno MD The patient is a 49-year-old male with a past medical history including bowel obstruction, morbid obesity with BMI 45.0-49.9, CKD, diabetes mellitus type 2 with neurologic manifestations, peripheral neuropathy, diabetic ulcer of toe, hypertension, dyslipidemia, chronic diastolic CHF, ZAIRE, small bowel obstruction, restless leg syndrome, ischemic cardiomyopathy, CAD, MRSA, GERD and diabetic gastroparesis. Patient has a known history of MRSA, and reports that this infection is similar to his previous episodes. He denies any recent travel or sick exposures. Allergies Allergy/AdvReac Type Severity Reaction Status Date / Time No Known Allergies Allergy Verified 03/28/20 23:04 Home Medications Home Medications Medication Instructions Recorded Confirmed Type aspirin 81 mg PO QAM 04/03/18 03/28/20 History lancets 30 gauge #25 ea 04/12/19 03/28/20 History pen needle, diabetic 32 gauge x #50 ea 04/12/19 03/28/20 History 1/4" pen needle, diabetic 32 gauge x #50 ea 04/12/19 03/28/20 History 1/4" atorvastatin [Lipitor] 20 mg PO QAM 08/10/19 03/28/20 History pantoprazole 40 mg PO QAM 08/10/19 03/28/20 History blood sugar diagnostic #100 ea 10/31/19 03/28/20 Rx pen needle, diabetic 32 gauge x #100 ea 11/01/19 03/28/20 Rx 5/32" ascorbate calcium (vitamin C) 500 500 mg PO QAM 12/25/19 03/28/20 History mg tablet carvedilol 6.25 mg tablet 6.25 mg PO BID #180 tab 01/16/20 03/28/20 Rx insulin glargine 100 unit/mL (3 60 unit SUBCUT QAM #15 ml 01/30/20 03/28/20 Rx mL) subcutaneous pen Metamucil 1 tbsp PO QAM 01/31/20 03/28/20 History Probiotic Blend 1 cap PO QAM 01/31/20 03/28/20 History tramadol 50 mg tablet 50 mg PO BID PRN #60 tab 02/26/20 03/28/20 Rx insulin aspart U-100 100 unit/mL 10 unit SQ TID #15 ml 03/07/20 03/28/20 Rx (3 mL) subcutaneous pen bumetanide 2 mg tablet 2 mg PO BID PRN #60 tab 03/13/20 03/28/20 Rx metolazone 5 mg tablet 5 mg PO DAILY PRN #30 tab 03/13/20 03/28/20 Rx doxycycline hyclate 100 mg PO BID 7 Days #14 cap 03/25/20 03/28/20 Rx Past Med/Surg History Medical History Albuminuria CAD (coronary artery disease) Cardiomyopathy, nonischemic CHF (congestive heart failure) Chronic back pain CKD (chronic kidney disease) Diabetes Diabetic gastroparesis Diabetic peripheral neuropathy GERD (gastroesophageal reflux disease) History of anesthesia reaction woke up during last colonoscopy 2017 HLD (hyperlipidemia) HTN (hypertension) Hx MRSA infection Iron deficiency anemia Morbid obesity with BMI of 50.0-59.9, adult Myocardial infarction "silent" between the time frame of 4828-5422 ??--follows with [facility] Non-ischemic cardiomyopathy Orthostatic hypotension Peripheral edema Renal agenesis, 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 Beliefs That Will Affect Care: None marital status: Single Current Living Situation: Parent current occupational status: employed Feels Safe at Home: Yes during the past year weight has: remained stable Review of Systems Review of Systems: The patient denies chest pain, palpitations, shortness of breath, dyspnea on exertion, cough, sore throat, fevers, chills, sweats, weight change, fatigue, nausea, vomiting, diarrhea , constipation, abdominal pain, pelvic pain, blood in urine or stool, dysuria, urinary frequency or urgency, lightheadedness, dizziness, headache, memory loss, loss of consciousness, abnormal bruising or bleeding, imbalance, focal or generalized weakness, numbness or tingling in arms, generalized arthralgias or myalgias, neck pain, or night sweats. The review of systems is otherwise negative other than for that already noted above, and at least 10 systems have been reviewed. Physical Exam Physical Exam: The patient is awake, alert and oriented 3, well developed and well nourished, normocephalic and atraumatic, lying in bed and in no acute distress. HEENT--PERRL, EOMI, mucous membranes and oropharynx normal. Neck--supple. No JVD. No bruits. Thyroid normal, trachea midline, no adenopathy. Heart--normal S1 and S2. No murmurs, rubs or gallops. Lungs--clear bilaterally, no respiratory distress, no accessory muscle use. Abdomen--normal bowel sounds and soft. Nontender. Nondistended. Morbidly obese Extremities/dermatologic-right thigh with central area of induration and erythema 4 cm in size, surrounded by another 2 cm of erythema. Small central area which looks like it attempted to drain spontaneously. Neurologic--cranial nerves II through XII grossly intact. Rheumatologic--normal range of motion. Psychiatric--normal affect. Results & Data Results & Data ([facility]) Vital Signs (Past 12 Hours) Vital Signs Temp Pulse Pulse Resp BP BP Pulse Ox 03/28/20 22:51 88 18 181/91 H 95 03/28/20 22:15 86 20 151/82 H 97 03/28/20 22:02 97 03/28/20 21:01 98.6 F 94 H 20 170/87 H 95 Laboratory Results Laboratory Results WBC 8.42 K/uL (4.8-10.8) 03/28/20 21:30 RBC 4.71 M/uL (4.7-6.1) 03/28/20 21:30 Hgb 13.6 g/dL (14.0-18.0) L 03/28/20 21:30 Hct 40.5 % (42-52) L 03/28/20 21:30 MCV 86.0 fL (80-100) 03/28/20 21:30 MCH 28.9 pg (25-34) 03/28/20 21:30 MCHC 33.6 g/dL (32-36) 03/28/20 21:30 RDW Std Deviation 44.2 fL (36.4-46.3) 03/28/20 21:30 RDW Coeff of Soledad 14.0 % (11.5-14.5) 03/28/20 21:30 Plt Count 231 K/uL (130-400) 03/28/20 21:30 MPV 9.6 fL (7.4-10.4) 03/28/20 21:30 Immature Gran % (Auto) 0.2 % 03/28/20 21:30 Neut % (Auto) 73.9 % 03/28/20 21:30 Lymph % (Auto) 16.0 % 03/28/20 21:30 [place] % (Auto) 7.0 % 03/28/20 21:30 Eos % (Auto) 2.7 % 03/28/20 21:30 Baso % (Auto) 0.2 % 03/28/20 21:30 Neut # (Auto) 6.21 K/uL (1.4-6.5) 03/28/20 21:30 Lymph # (Auto) 1.35 K/uL (1.2-3.4) 03/28/20 21:30 Independence # (Auto) 0.59 K/uL (0.11-0.59) 03/28/20 21:30 Eos # (Auto) 0.23 K/uL (0-0.5) 03/28/20 21:30 Baso # (Auto) 0.02 K/uL (0-0.2) 03/28/20 21:30 Immature Gran # (Auto) 0.02 K/uL (0.00-0.02) 03/28/20 21:30 PT 10.8 Seconds (9.0-12.0) 03/28/20 21:30 INR 1.0 (0.9-1.1) 03/28/20 21:30 APTT 28.0 Seconds (21.0-31.0) 03/28/20 21:30 PTT Ratio 1.0 03/28/20 21:30 Sodium 138 mmol/L (136-145) 03/28/20 21:30 Potassium 4.0 mmol/L (3.5-5.1) 03/28/20 21:30 Chloride 102 mmol/L (98-107) 03/28/20 21:30 Carbon Dioxide 30 mmol/L (21-32) 03/28/20 21:30 Anion Gap 6.0 (3-11) 03/28/20 21:30 BUN 30 mg/dl (7-18) H 03/28/20 21:30 Creatinine 1.48 mg/dl (0.6-1.4) H 03/28/20 21:30 Est Cr Clr Drug Dosing 90.5 ml/min 03/28/20 21:30 Est GFR ( Amer) 63.5 03/28/20 21:30 Est GFR (Non-Af Amer) 54.8 03/28/20 21:30 BUN/Creatinine Ratio 20.3 (10-20) H 03/28/20 21:30 Glucose 261 mg/dl (70-99) H 03/28/20 21:30 POC Glucose 276 mg/dl (70-99) H 03/29/20 01:56 Lactate 0.9 mmol/L (0.4-2.0) 03/28/20 22:14 Calcium 9.4 mg/dl (8.5-10.1) 03/28/20 21:30 Magnesium 1.9 mg/dl (1.8-2.4) 03/28/20 21:30 Total Bilirubin 0.5 mg/dl (0.2-1) 03/28/20 21:30 AST 22 U/L (15-37) 03/28/20 21:30 ALT 21 U/L (12-78) 03/28/20 21:30 Alkaline Phosphatase 96 U/L (45-117) 03/28/20 21:30 Total Protein 7.9 gm/dl (6.4-8.2) 03/28/20 21:30 Albumin 3.3 gm/dl (3.4-5.0) L 03/28/20 21:30 Globulin 4.6 gm/dl (2.5-4.0) H 03/28/20 21:30 Albumin/Globulin Ratio 0.7 (0.9-2) L 03/28/20 21:30 Urine Color Yellow 03/29/20 00:15 Urine Appearance Clear (Clear) 03/29/20 00:15 Urine pH 5.5 (4.5-7.5) 03/29/20 00:15 Ur Specific Orla 1.015 (1.000-1.030) 03/29/20 00:15 Urine Protein 2+ (Negative) H 03/29/20 00:15 Urine Glucose (UA) 2+ (Negative) H 03/29/20 00:15 Urine Ketones Negative (Negative) 03/29/20 00:15 Urine Blood Negative (Negative) 03/29/20 00:15 Urine Nitrite Negative (Negative) 03/29/20 00:15 Urine Bilirubin Negative (Negative) 03/29/20 00:15 Urine Urobilinogen Negative (Negative) 03/29/20 00:15 Ur Leukocyte Esterase Negative (Negative) 03/29/20 00:15 Urine WBC (Auto) 0 /hpf (0-5) 03/29/20 00:15 Urine RBC (Auto) 0-4 /hpf (0-4) 03/29/20 00:15 U Hyaline Cast (Auto) 1-5 /lpf (0-5) 03/29/20 00:15 U Epithel Cells (Auto) 0-5 /lpf (0-5) 03/29/20 00:15 Urine Bacteria (Auto) Negative (Negative) 03/29/20 00:15 Diagnostic Findings [facility] Patient: MAIKEL NUR (Male) : 70 Status: ER Date: 03/28/20 23:47 Room #: History: RIGHT LEG SWELLING. RED AREA RIGHT PROX MEDIAL THIGH Slices: 37 Priors: Tech: Ariadna Hanson @ [phone] Exams: US EXTREMITY, US VENOUS RIGHT LOWER EXTREMITY Contrast: Accession Numbers: [id number], [id number] Preliminary Findings Only See Final Report For Complete Findings US EXTREMITY: Soft tissue swelling and edema in the extremity. Complex fluid collections measuring 1 x 0.9 x 1.3 cm and 0.4 x 2 x 0.7 cm in the medial thigh. Some hyperemia in the periphery of the lateral collection. Soft tissue hyperemia. US VENOUS RIGHT LOWER EXTREMITY: No DVT demonstrated. Radiologist: Dimitrios Jimenes M.D. Study ready at 23:52 and initial results transmitted at 23:59 *This report constitutes a preliminary interpretation only. Non-acute findings felt to be unrelated to the clinical presentation may not be discussed in this report. The study will be interpreted and a final report will be generated by the local Radiologist the following shift. To reach the hospital radiology department call [phone]. If a discrepancy is found between the preliminary and final interpretations of this study, please notify us via our Client Portal at [email or web address], under QA Exams.You can also fax this report with a description of the discrepancy, or include the final report, to our daytime fax number [phone].If faxing, please indicate the severity of discrepancy using one of the following categories: [ ] 1 - Agree/Informational [ ] 2 - Unlikely to Affect Management [ ] 3 - Possible Eventual Change of Management [ ] 4 - Probable Immediate Change of Management For all other patient related information, please fax us at [phone]. [id number] Code Status & VTE Plan Code Status Full code VTE Prophylaxis Plan VTE Prophylaxis will be ordered: Yes PG Care Time/CCT Total # of Minutes Spent Total Time Spent with Patient: Total time spent is greater than 50% in coordination of care (as documented) at patient's floor/unit and/or counseling patient: Coding Level of Care Code 02706 Initial Inpt Care Lvl 3 Diagnoses Abscess of right thigh L02.415 Diabetes mellitus type 2, insulin dependent E11.9; Z79.4 CAD (coronary artery disease) I25.10 Coronary Disease-Associated Artery/Lesion type: elem artery [place] vs. transplanted heart: elem heart Associated angina: without angina Chronic diastolic CHF (congestive heart failure) I50.32 Hypertension I10 Cardiomyopathy, nonischemic I42.8 Dyslipidemia E78.5 (1) CAD (coronary artery disease) Coronary Disease-Associated Artery/Lesion type: elem artery [place] vs. transplanted heart: elem heart Associated angina: without angina Qualified Code(s): I25.10 - Atherosclerotic heart disease of elem coronary artery without angina pectoris
[2020-03-29] MEDS ORDERED: carvediloL 3.125 MG TAB ONE (01:40)
[2020-03-29] MEDS ORDERED: carvediloL 6.25 MG TAB PO STA (01:46)
[2020-03-29] MEDS ORDERED: MAGNESIUM HYDROXIDE SUSP 30 ML UDC PO PRN (01:55)
[2020-03-29] MEDS ORDERED: ALUMINUM/MAGNESIUM SUSP 30 ML UDC PO PRN (01:55)
[2020-03-29] MEDS ORDERED: PIPERACILL/TAZOBAC CONSULT ACTIVE PRN (01:55)
[2020-03-29] MEDS ORDERED: ACETAMINOPHEN 325 MG TAB PO PRN (01:55)
[2020-03-29] MEDS ORDERED: GLUCAGON FOR INJ 1 MG VIAL SQ PRN (01:55)
[2020-03-29] MEDS ORDERED: DEXTROSE 50% 50 ML SYRINGE IV PRN (01:55)
[2020-03-29] MEDS ORDERED: GLUCOSE 40% GEL 15 GM TUBE PO PRN (01:55)
[2020-03-29] MEDS ORDERED: VANCOMYCIN CONSULT ACTIVE PRN (01:55)
[2020-03-29] MEDS ORDERED: GLUCOSE 10 TABS/TUBE PO PRN (01:55)
[2020-03-29] MEDS ORDERED: CARBOHYDRATES FOR HYPOGLYCEMIA PO PRN (01:55)
[2020-03-29] MEDS ORDERED: PNEUMOCOCCAL ADMINISTRATION CHARGE ONE (02:09)
[2020-03-29] MEDS ORDERED: PNEUMOCOCCAL POLYSACCHARIDES 25 MCG/0.5 ML VIAL/SYR IM ONE (02:09)
[2020-03-29] MEDS ORDERED: PIPERACILLIN/TAZOBACTAM 4.5 GM in DEXTROSE 5% 100 ML IV SCH (03:00)
[2020-03-29] MEDS ORDERED: INSULIN ASPART 100 UNITS/ML 3 ML PEN SC ONE (04:28)
[2020-03-29 05:56] LABS: Basophils # (auto) 0.01 K/uL (0-0.2); Basophils % (auto) 0.1 %; Eosinophils # (auto) 0.17 K/uL (0-0.5); Hematocrit (blood only) 38.2 % (42-52); Hemoglobin 12.6 g/dL (14.0-18.0); Immature Granulocytes # (auto) 0.01 K/uL (0.00-0.02); Immature Granulocytes % (auto) 0.1 %; Lymphocytes # (auto) 1.07 K/uL (1.2-3.4); Lymphocytes % (auto) 12.5 %; Mean Corpuscular Hemoglobin 28.4 pg (25-34); Mean Platelet Volume 9.7 fL (7.4-10.4); Monocytes # (auto) 0.28 K/uL (0.11-0.59); Monocytes % (auto) 3.3 %; Neutrophils # (auto) 6.99 K/uL (1.4-6.5); Platelet Count 209 K/uL (130-400); RDW Standard Deviation 43.9 fL (36.4-46.3); Red Blood Count 4.44 M/uL (4.7-6.1); White Blood Count 8.53 K/uL (4.8-10.8)
[2020-03-29 06:10] LABS: Albumin Level 2.7 gm/dl (3.4-5.0); BUN Creatinine Ratio 20.9 (10-20); Calcium 8.7 mg/dl (8.5-10.1); Creatinine Clr Calc Pharmacy 107.8 ml/min; Est GFR (Non-African American) 69.9; Potassium 3.7 mmol/L (3.5-5.1)
[2020-03-29 06:12] LABS: Albumin Globulin Ratio 0.7 (0.9-2); Bilirubin,Total 0.3 mg/dl (0.2-1); Total Protein 6.7 gm/dl (6.4-8.2)
--- NOTE | 2020-03-29 06:30 | Ultrasound Report ---
US venous doppler LE RT HISTORY: 49 years-old Male pain/swelling acute pain and swelling of the right lower extremity COMPARISON: Extremity ultrasound of same day TECHNIQUE: Multiple real-time sonographic images of the right lower extremity deep venous structures were obtained assessing grayscale appearance, color and spectral flow FINDINGS: Normal flow, compressibility, phasicity and augmentation of the right lower extremity deep venous str uctures. Study is limited secondary to patient body habitus and subcutaneous edema. IMPRESSION: No sonographic evidence of deep venous thrombosis. ACT 112: Negative or not required by law. The above report was generated using voice recognition software. It may contain grammatical, syntax o r spelling errors. Electronically signed by: Lawson Zaragoza M.D. 03/29/2020 6:28 AM
--- NOTE | 2020-03-29 06:32 | XRay Report ---
XR chest 1V portable HISTORY: 49 years-old Male SEPSIS acute sepsis COMPARISON: Chest radiograph 08/10/2019 TECHNIQUE: Portable AP view of the chest FINDINGS: Cardiac silhouette is enlarged, unchanged. Stable right hemidiaphragmatic elevation. Linear subsegmen jose right greater than left bibasilar and right perihilar opacities. No pneumothorax, overt pulmonary edema or large pleural effusion. Bones appear grossly intact. IMPRESSION: 1. Cardiomegaly without acute process. 2. Unchanged right hemidiaphragmatic elevation with linear subsegmental and right perihilar opacities suggestive of atelectasis. ACT 112: Negative or not required by law. The above report was generated using voice recognition software. It may contain grammatical, syntax o r spelling errors. Electronically signed by: Lawson Zaragoza M.D. 03/29/2020 6:31 AM
[2020-03-29 06:46] LABS: Estimated Average Glucose 232 mg/dl; Hemoglobin A1C 9.7 % (4.5-5.6)
--- NOTE | 2020-03-29 07:59 | Ultrasound Report ---
RIGHT THIGH ULTRASOUND CLINICAL HISTORY: right thigh infx, ? abscess COMPARISON STUDY: No previous studies for comparison. TECHNIQUE: Sonography of the right thigh was performed. FINDINGS: Note is made of a 1 x 0.9 x 1.3 cm complex subcutaneous fluid collection of the right thigh . Note is made of an additional 2 x 0.4 x 0.7 cm subcutaneous fluid collection of the right thigh. Th ere is adjacent soft tissue hyperemia. Soft tissue edema is noted. IMPRESSION: Two right thigh subcutaneous fluid collections, measuring up to 2 x 0.4 x 0.7 cm. These s uggest abscesses. ACT 112: Negative or not required by law. Electronically signed by: Beni Walker M.D. 03/29/2020 7:57 AM
[2020-03-29] MEDS ORDERED: VANCOMYCIN HCL 1,750 MG in SODIUM CHLORIDE 0.9% 500 ML IV SCH (08:00)
[2020-03-29] MEDS ORDERED: INSULIN ASPART 100 UNITS/ML 3 ML PEN SQ SCH (08:00)
--- NOTE | 2020-03-29 08:37 | Electrocardiogram Report ---
Test Reason : Blood Pressure : / mmHG Vent. Rate : 087 BPM Atrial Rate : 087 BPM P-R Int : 186 ms QRS Dur : 104 ms QT Int : 376 ms P-R-T Axes : 045 -21 030 degrees QTc Int : 452 ms Normal sinus rhythm Old Septal infarct (cited on or before 14-DEC-2019) Abnormal ECG When compared with ECG of 14-DEC-2019 13:53, No significant change Confirmed by Pedro Pablo Sandoval ([id number]) on 03/29/2020 8:37:13 AM Referred By: REFERRED SELF Confirmed By:Pedro Pablo Sandoval
[2020-03-29] MEDS ORDERED: VANCOMYCIN HCL 1,000 MG in SODIUM CHLORIDE 0.9% 250 ML IV SCH (09:00)
[2020-03-29] MEDS ORDERED: ATORVASTATIN 20 MG TAB PO SCH (09:00)
[2020-03-29] MEDS: DAPTOmycin 425 MG in SYRINGE 0 ML IV SCH (09:23)
[2020-03-29] MEDS: PIPERACILLIN/TAZOBACTAM 4.5 GM in DEXTROSE 5% 100 ML IV SCH ×3 (09:23→23:39)
[2020-03-29] MEDS: INSULIN ASPART 100 UNITS/ML 3 ML PEN SC SCH ×4 (09:25→21:11)
[2020-03-29] MEDS: INSULIN GLARGINE SOLOSTAR 100 UNITS/ML 3 ML PEN SQ SCH (09:26)
[2020-03-29] MEDS: PANTOprazole 40 MG TAB PO SCH (09:38)
[2020-03-29] MEDS: ASCORBIC ACID 500 MG TAB PO SCH (09:39)
[2020-03-29] MEDS: LACTOBACILLUS ACIDOPHILUS (FLORANEX) TAB PO SCH (09:39)
[2020-03-29] MEDS: PSYLLIUM 58.6% POWDER PACKET PO SCH (09:39)
[2020-03-29] MEDS: carvediloL 6.25 MG TAB PO SCH ×2 (09:39→21:19)
[2020-03-29] MEDS: ASPIRIN 81 MG ECTAB PO SCH (09:39)
--- NOTE | 2020-03-29 13:54 | Surgery Consultation ---
Date of Consultation March 29, 2020 Assessment & Plan (1) Abscess of right thigh: This is a 49y M with a PMH of DM2, HTN, HLD, morbid obesity, gastroparesis, CHF, CAD, and history of MRSA who presents to the [facility] ED on 03/28/20 with complaints of a right thigh abscess. Patient's WBC 8.5 and he is afebrile. US showed two right thigh subcutaneous fluid collections, measuring up to 2 x 0.4 x 0.7 cm, suggesting abscesses. Patient has been started on IV abx. He has been eating today, last ate at lunch. We will plan to make him NPO at midnight and place him on the schedule for I&D tomorrow. as above. pt not septic and ate lunch. OR is very busy tonight as well. will make NPO after midnight and I & D tomorrow AM. pt agreeable discussed options/risks. History of Present Illness Attending Physician: Jonah Hartley, History of Present Illness This is a 49y M with a PMH of DM2, HTN, HLD, morbid obesity, gastroparesis, CHF, CAD, and history of MRSA who presents to the [facility] ED on 03/28/20 with complaints of a right thigh abscess. Patient reports he came to the ED on 03/25/20 for this and was discharged on a course of doxycycline. Despite the doxy the patient reports that the area worsened in severity prompting him to return. Patient found to have a WBC of 8.4. An US was obtained that revealed two right thigh subcutaneous fluid collections, measuring up to 2 x 0.4 x 0.7 cm, suggesting abscesses. He was admitted under the medicine service and was started on IV zosyn and daptomycin. Surgery was consulted for further evaluation. Patient states yesterday evening the area had some drainage when the provider palpated it, but no active drainage requiring a bandage currently. He reports having a history of these on multiple areas of his body in the past requiring I&D. Allergies Allergy/AdvReac Type Severity Reaction Status Date / Time No Known Allergies Allergy Verified 03/28/20 23:04 Home Medications Home Medications Medication Instructions Recorded Confirmed Type aspirin 81 mg PO QAM 04/03/18 03/28/20 History lancets 30 gauge #25 ea 04/12/19 03/28/20 History pen needle, diabetic 32 gauge x #50 ea 04/12/19 03/28/20 History 1/4" pen needle, diabetic 32 gauge x #50 ea 04/12/19 03/28/20 History 1/4" atorvastatin [Lipitor] 20 mg PO QAM 08/10/19 03/28/20 History pantoprazole 40 mg PO QAM 08/10/19 03/28/20 History blood sugar diagnostic #100 ea 10/31/19 03/28/20 Rx pen needle, diabetic 32 gauge x #100 ea 11/01/19 03/28/20 Rx /32" ascorbate calcium (vitamin C) 500 500 mg PO QAM 12/25/19 03/28/20 History mg tablet carvedilol 6.25 mg tablet 6.25 mg PO BID #180 tab 01/16/20 03/28/20 Rx insulin glargine 100 unit/mL (3 60 unit SUBCUT QAM #15 ml 01/30/20 03/28/20 Rx mL) subcutaneous pen Metamucil 1 tbsp PO QAM 01/31/20 03/28/20 History Probiotic Blend 1 cap PO QAM 01/31/20 03/28/20 History tramadol 50 mg tablet 50 mg PO BID PRN #60 tab 02/26/20 03/28/20 Rx insulin aspart U-100 100 unit/mL 10 unit SQ TID #15 ml 03/07/20 03/28/20 Rx (3 mL) subcutaneous pen bumetanide 2 mg tablet 2 mg PO BID PRN #60 tab 03/13/20 03/28/20 Rx metolazone 5 mg tablet 5 mg PO DAILY PRN #30 tab 03/13/20 03/28/20 Rx doxycycline hyclate 100 mg PO BID 7 Days #14 cap 03/25/20 03/28/20 Rx Patient History Medical History Albuminuria CAD (coronary artery disease) Cardiomyopathy, nonischemic CHF (congestive heart failure) Chronic back pain CKD (chronic kidney disease) Diabetes Diabetic gastroparesis Diabetic peripheral neuropathy GERD (gastroesophageal reflux disease) History of anesthesia reaction woke up during last colonoscopy 2017 HLD (hyperlipidemia) HTN (hypertension) Hx MRSA infection Iron deficiency anemia Morbid obesity with BMI of 50.0-59.9, adult Myocardial infarction "silent" between the time frame of 1578-5861 ??--follows with [facility] Non-ischemic cardiomyopathy Orthostatic hypotension Peripheral edema Renal agenesis, 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 Beliefs That Will Affect Care: None marital status: Single Current Living Situation: Parent current occupational status: employed Feels Safe at Home: Yes during the past year weight has: remained stable Review of Systems Constitutional: no fever and no chills Integumentary: + erythematous lesion on R medial thigh, tender with activity, currently not draining Physical Exam Physical Exam: awake/alert Skin: + erythematous lesion of right thigh, tender to palpation, + induration Results & Data ([facility]) Vital Signs (Past 12 Hours) Vital Signs Temp Pulse Resp BP BP Pulse Ox 03/29/20 09:36 88 119/72 93 03/29/20 07:27 36.7 C 89 16 126/76 93 03/29/20 05:19 89 105/60 RIGHT THIGH ULTRASOUND CLINICAL HISTORY: right thigh infx, ? abscess COMPARISON STUDY: No previous studies for comparison. TECHNIQUE: Sonography of the right thigh was performed. FINDINGS: Note is made of a 1 x 0.9 x 1.3 cm complex subcutaneous fluid collection of the right thigh. Note is made of an additional 2 x 0.4 x 0.7 cm subcutaneous fluid collection of the right thigh. There is adjacent soft tissue hyperemia. Soft tissue edema is noted. IMPRESSION: Two right thigh subcutaneous fluid collections, measuring up to 2 x 0.4 x 0.7 cm. These suggest abscesses. ACT 112: Negative or not required by law. Electronically signed by: Beni Walker M.D. 03/29/2020 7:57 AM US venous doppler LE RT HISTORY: 49 years-old Male pain/swelling acute pain and swelling of the right lower extremity COMPARISON: Extremity ultrasound of same day TECHNIQUE: Multiple real-time sonographic images of the right lower extremity deep venous structures were obtained assessing grayscale appearance, color and spectral flow FINDINGS: Normal flow, compressibility, phasicity and augmentation of the right lower extremity deep venous structures. Study is limited secondary to patient body habitus and subcutaneous edema. IMPRESSION: No sonographic evidence of deep venous thrombosis. ACT 112: Negative or not required by law. The above report was generated using voice recognition software. It may contain grammatical, syntax or spelling errors. Electronically signed by: Lawson Zaragoza M.D. 03/29/2020 6:28 AM PG Care Time/CCT Total # of Minutes Spent Total Time Spent with Patient: Total time spent is greater than 50% in coord ination of care (as documented) at patient's floor/unit and/or counseling patient: Coding Level of Care Code 83384 Inpt Consult Level 2 Diagnoses Abscess of right thigh L02.415
--- NOTE | 2020-03-29 16:13 | History & Physical Bridge Note ---
Date of Service March 29, 2020 History & Physical Bridge Note I have examined the patient, reviewed the History & Physical and in the interval since the performance of the History & Physical I have noted the following changes of clinical significance: patient with right thigh abscess, h/o MRSA general surgery will plan for I&D in the OR tomorrow, COVID test ordered continue IV antibiotics, likely transition to PO in 2-3 days after drainage NPO after midnight he has no other complaints, resting in bed
[2020-03-29] MEDS ORDERED: BUMETANIDE 1 MG TAB PO ONE (17:55)
[2020-03-29] MEDS ORDERED: MELATONIN 3 MG TAB PO PRN (23:55)
[2020-03-30] MEDS ORDERED: Nursing to Pharmacy Communication SCH (02:30)
[2020-03-30] MEDS ORDERED: ACETAMINOPHEN 1000 MG/100 ML IV IV PRN (05:02)
[2020-03-30] MEDS ORDERED: INSULIN ASPART 100 UNITS/ML 3 ML PEN SC SCH (06:00)
[2020-03-30 06:14] LABS: Basophils # (auto) 0.01 K/uL (0-0.2); Basophils % (auto) 0.2 %; Eosinophils # (auto) 0.22 K/uL (0-0.5); Eosinophils % (auto) 3.4 %; Hematocrit (blood only) 36.3 % (42-52); Hemoglobin 11.8 g/dL (14.0-18.0); Immature Granulocytes # (auto) 0.01 K/uL (0.00-0.02); Immature Granulocytes % (auto) 0.2 %; Lymphocytes # (auto) 1.57 K/uL (1.2-3.4); Lymphocytes % (auto) 24.3 %; Mean Corpuscular Hemoglobin 28.4 pg (25-34); Mean Corpuscular Hgb Conc 32.5 g/dL (32-36); Mean Corpuscular Volume 87.3 fL (80-100); Mean Platelet Volume 9.3 fL (7.4-10.4); Monocytes % (auto) 4.6 %; Neutrophils # (auto) 4.35 K/uL (1.4-6.5); Neutrophils % (auto) 67.3 %; Platelet Count 213 K/uL (130-400); RDW Coefficient of Variation 14.2 % (11.5-14.5); RDW Standard Deviation 45.3 fL (36.4-46.3); Red Blood Count 4.16 M/uL (4.7-6.1); White Blood Count 6.46 K/uL (4.8-10.8)
[2020-03-30 06:47] LABS: Albumin Level 2.7 gm/dl (3.4-5.0); BUN Creatinine Ratio 14.8 (10-20); Calcium 8.6 mg/dl (8.5-10.1); Creatinine Clr Calc Pharmacy 101.2 ml/min; Est GFR (Non-African American) 64.7; Magnesium 1.9 mg/dl (1.8-2.4); Potassium 3.6 mmol/L (3.5-5.1)
[2020-03-30 06:49] LABS: Albumin Globulin Ratio 0.7 (0.9-2); Bilirubin,Total 0.4 mg/dl (0.2-1); Globulin 3.9 gm/dl (2.5-4.0); Total Protein 6.6 gm/dl (6.4-8.2)
[2020-03-30] MEDS ORDERED: ROCURONIUM BROMIDE 10 MG/ML 5 ML VIAL IV ONE (07:07)
[2020-03-30] MEDS ORDERED: PROPOFOL IV EMULSION 10 MG/ML 20 ML VIAL IV ONE (07:07)
[2020-03-30] MEDS ORDERED: ONDANSETRON INJ 2 MG/ML 2 ML VIAL ONE (07:07)
[2020-03-30] MEDS ORDERED: LIDOCAINE HCL 2% 2 ML VIAL/AMP(20MG/ML) INFIL ONE (07:07)
[2020-03-30] MEDS ORDERED: MIDAZOLAM HCL 1 MG/ML 2ML VIAL ONE (07:07)
[2020-03-30] MEDS ORDERED: fentaNYL citrate 100 MCG/2 ML VIAL ONE (07:08)
[2020-03-30] MEDS ORDERED: BUPIVACAINE/EPINEPHRINE 0.25% 1:200,000 30 ML VIAL ONE (07:17)
--- NOTE | 2020-03-30 07:27 | History & Physical Bridge Note ---
Date of Service March 30, 2020 History & Physical Bridge Note I have examined the patient, reviewed the History & Physical and in the interval since the performance of the History & Physical I have noted the following changes of clinical significance: no changes noted
[2020-03-30] MEDS ORDERED: fentaNYL citrate 100 MCG/2 ML VIAL IV PRN (07:30)
[2020-03-30] MEDS ORDERED: ATROPINE SULFATE 0.1 MG/ML 10ML SYR IV PRN (07:30)
[2020-03-30] MEDS ORDERED: ePHEDrine sulfate 50 MG/ML AMP IV PRN (07:30)
[2020-03-30] MEDS ORDERED: HYDROmorphone INJ 2 MG/ML SYR/VIAL IV PRN (07:30)
[2020-03-30] MEDS ORDERED: ONDANSETRON INJ 2 MG/ML 2 ML VIAL IV PRN (07:30)
--- NOTE | 2020-03-30 07:30 | Anesthesiology Consultation ---
Date of Service March 30, 2020 Assessment & Plan ASA ASA4 Proposed Anesthesia Anesthesia Type: MAC Risk / Benefits Reviewed With: PT / POA / Parent / Guardian, Accepts Plan and Informed Consent Obtained History Surgery Operation Date: 03/30/20 07:30 Proposed Procedures p Right Thigh Abscess Incision and Drainage - Yohan Clayton, DO Height/Weight Height: 5 ft 8 in Weight: 155.5 kg Allergies Allergy/AdvReac Type Severity Reaction Status Date / Time No Known Allergies Allergy Verified 03/28/20 23:04 Medications Home Medications Medication Instructions Recorded Confirmed Last Taken aspirin 81 mg PO QAM 04/03/18 03/28/20 03/28/20 lancets 30 gauge #25 ea 04/12/19 03/28/20 Unknown pen needle, diabetic 32 gauge x #50 ea 04/12/19 03/28/20 Unknown 1/4" pen needle, diabetic 32 gauge x #50 ea 04/12/19 03/28/20 Unknown /4" atorvastatin [Lipitor] 20 mg PO QAM 08/10/19 03/28/20 03/28/20 pantoprazole 40 mg PO QAM 08/10/19 03/28/20 03/28/20 blood sugar diagnostic #100 ea 10/31/19 03/28/20 Unknown pen needle, diabetic 32 gauge x #100 ea 11/01/19 03/28/20 Unknown " ascorbate calcium (vitamin C) 500 500 mg PO QAM 12/25/19 03/28/20 03/28/20 mg tablet carvedilol 6.25 mg tablet 6.25 mg PO BID #180 tab 01/16/20 03/28/20 03/28/20 08:00 insulin glargine 100 unit/mL (3 60 unit SUBCUT QAM #15 ml 01/30/20 03/28/20 03/28/20 mL) subcutaneous pen Metamucil 1 tbsp PO QAM 01/31/20 03/28/20 03/28/20 Probiotic Blend 1 cap PO QAM 01/31/20 03/28/20 03/28/20 insulin aspart U-100 100 unit/mL 10 unit SQ TID #15 ml 03/07/20 03/28/20 03/28/20 (3 mL) subcutaneous pen bumetanide 2 mg tablet 2 mg PO BID PRN #60 tab 03/13/20 03/28/20 Unknown metolazone 5 mg tablet 5 mg PO DAILY PRN #30 tab 03/13/20 03/28/20 Unknown doxycycline hyclate 100 mg PO BID 7 Days #14 cap 03/25/20 03/28/20 03/28/20 08:00 tramadol 50 mg tablet 50 mg PO BID PRN #60 tab 03/29/20 Unknown Active Medications Generic Name Dose Route Start Last Admin Trade Name Josh PRN Reason Stop Dose Admin Acetaminophen 1,000 mg 03/30/20 05:02 03/30/20 05:23 Acetaminophen 1000 Mg/100 Ml Iv IV 04/02/20 05:01 1,000 mg Q8H PRN Administration Pain or Fever Ascorbic Acid 500 mg 03/29/20 09:00 03/29/20 09:39 Ascorbic Acid 500 Mg Tab PO 04/28/20 08:59 500 mg QAM STEVE Administration Aspirin 81 mg 03/29/20 09:00 03/29/20 09:39 Aspirin 81 Mg Ectab PO 04/28/20 08:59 81 mg QAM STEVE Administration Carvedilol 6.25 mg 03/29/20 09:00 03/29/20 21:19 Carvedilol 6.25 Mg Tab PO 04/28/20 08:59 6.25 mg BID STEVE Administration Piperacillin Sod/Tazobactam 120 mls @ 30 mls/hr 03/29/20 08:00 03/30/20 03:57 Sod 4.5 gm/ Dextrose IV 04/05/20 07:59 Infused Q8H STEVE Infusion Protocol Daptomycin 425 mg/ Syringe 8.5 mls @ 4.25 mls/min 03/29/20 09:00 03/29/20 09:23 IV 04/05/20 08:59 4.25 mls/min Q24H STEVE Administration Protocol Insulin Aspart 0 units 03/30/20 06:00 03/30/20 06:29 Insulin Aspart 100 Units/Ml 3 Ml Pen SC 04/29/20 05:59 Not Given Q6 STEVE Insulin Glargine 60 units 03/29/20 09:00 03/29/20 09:26 Insulin Glargine Solostar 100 Units/Ml 3 Ml Pen SQ 04/28/20 08:59 60 units QAM STEVE Administration Lactobacillus Acidophilus 1 tab 03/29/20 09:00 03/29/20 09:39 Lactobacillus Acidophilus (Floranex) Tab PO 04/28/20 08:59 1 tab QAM STEVE Administration Melatonin 3 mg 03/29/20 23:55 03/30/20 00:08 Melatonin 3 Mg Tab PO 04/28/20 23:54 3 mg HS PRN Administration Sleep Pantoprazole Sodium 40 mg 03/29/20 09:00 03/29/20 09:38 Pantoprazole 40 Mg Tab PO 04/28/20 08:59 40 mg QAM STEVE Administration Psyllium Hydrophilic Mucilloid 1 pkt 03/29/20 09:00 03/29/20 09:39 Psyllium 58.6% Powder Packet PO 04/28/20 08:59 1 pkt QAM STEVE Administration NPO Date Last Intake of Fluids: 03/29/20 Time Last Intake of Fluids: 23:59 Date Last Intake of Solids: 03/29/20 Time Last Intake of Solids: 23:59 Past Medical History Medical History Albuminuria CAD (coronary artery disease) Cardiomyopathy, nonischemic CHF (congestive heart failure) Chronic back pain CKD (chronic kidney disease) Diabetes Diabetic gastroparesis Diabetic peripheral neuropathy GERD (gastroesophageal reflux disease) History of anesthesia reaction woke up during last colonoscopy 2017 HLD (hyperlipidemia) HTN (hypertension) Hx MRSA infection Iron deficiency anemia Morbid obesity with BMI of 50.0-59.9, adult Myocardial infarction "silent" between the time frame of [id number] ??--follows with [facility] Non-ischemic cardiomyopathy Orthostatic hypotension Peripheral edema Renal agenesis, 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, 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 Restless legs syndrome Skin abscess Jul 2019, neck, s/p I&D with +MRSA culture Skin ulcer of left foot including toes Sleep apnea Exercise / Class Metabolic Activity II 4-5 Yardwork/Stairs/Walk up hill Past Family History Family History Family/Other Colon cancer Father Prostate cancer Diabetes Hypertension Brother Diabetes Mother Diabetes Grandfather (Paternal) Family hx of colon cancer Other No family history of adverse response to anesthesia No significant family history Past Surgical History Surgical History History of esophagogastroduodenoscopy (EGD) History of incision and drainage neck History of left knee surgery History of surgery left leg d/t cellulitis Hx of cardiac cath 2018 @ [facility] no stents Hx of colonoscopy Hx of hand surgery right hand d/t cellulitis issues ? Past Anesthesia History No Hx of Anesthesia Complications and No Family Hx of Anesthesia Complications History of PONV No Hx of PONV and No Hx of Motion Sickness Social History Smoking Status: Never smoker Hx Alcohol Use: Yes Alcohol type: beer alcohol intake frequency: holidays/special occasions only Hx Substance Use: No substance use type: does not use Review of Systems denies fever/cough/ colds/ chest pain/ SOB/ GULSHAN Constitutional: no fever and no chills Respiratory: no cough and no dyspnea denies GULSHAN Cardiovascular: no chest pain and no dyspnea on exertion Physical Exam Vital Signs Last Vital Signs Temp 36.6 C 03/30/20 07:13 Pulse 73 03/30/20 07:13 Resp 18 03/30/20 07:13 BP 110/72 03/30/20 07:13 Pulse Ox 96 03/30/20 07:13 ENMT Mouth: + chipped teeth; no TMJ abnormality and no dentition abnormality Thyromental Distance: > or= 3.5 Finger Breadths Mallampati Class: II Neck neck extension not limited Respiratory normal respiratory effort; no respiratory distress Auscultation: lungs clear to auscultation bilaterally Cardiovascular Rate/Rhythm: regular rate and regular rhythm Neurologic moves all extremities Psychiatric Orientation: alert and oriented x 3 Testing Laboratory Results 03/30/20 05:16 03/30/20 05:16 PT 10.8 Seconds (9.0-12.0) 03/28/20 21:30 INR 1.0 (0.9-1.1) 03/28/20 21:30 APTT 28.0 Seconds (21.0-31.0) 03/28/20 21:30 Hemoglobin A1c 9.7 % (4.5-5.6) H 03/29/20 05:25 Urine Color Yellow 03/29/20 00:15 Urine Appearance Clear (Clear) 03/29/20 00:15 Urine pH 5.5 (4.5-7.5) 03/29/20 00:15 Ur Specific [place] 1.015 (1.000-1.030) 03/29/20 00:15 Urine Protein 2+ (Negative) H 03/29/20 00:15 Urine Glucose (UA) 2+ (Negative) H 03/29/20 00:15 Urine Ketones Negative (Negative) 03/29/20 00:15 Urine Nitrite Negative (Negative) 03/29/20 00:15 Ur Leukocyte Esterase Negative (Negative) 03/29/20 00:15 Urine WBC (Auto) 0 /hpf (0-5) 03/29/20 00:15 Urine RBC (Auto) 0-4 /hpf (0-4) 03/29/20 00:15 U Hyaline Cast (Auto) 1-5 /lpf (0-5) 03/29/20 00:15 U Epithel Cells (Auto) 0-5 /lpf (0-5) 03/29/20 00:15 Urine Bacteria (Auto) Negative (Negative) 03/29/20 00:15 03/28/20 22:14 Aerobic Blood Culture - Preliminary Blood No growth in Aerobic bottle after 24 hours. Anaerobic Blood Culture - Preliminary No growth in Anaerobic bottle after 24 hours. 03/28/20 21:30 Aerobic Blood Culture - Preliminary Blood No growth in Aerobic bottle after 24 hours. Anaerobic Blood Culture - Preliminary No growth in Anaerobic bottle after 24 hours. 03/28/20 21:58 Gram Stain - Final Thigh Deep Wound Culture - Preliminary Pin-point growth present, reincubating.
[2020-03-30] MEDS ORDERED: KETAMINE HCL INJ 50 MG/ML 10 ML VIAL ONE (07:35)
--- NOTE | 2020-03-30 08:04 | Operative Report ---
PG Post Operative Report Pre & Post Diagnosis Operation Date: 03/30/20 07:30 <No data on this case meets the specified criteria> I identified the patient and participated in the time-out.: Yes Procedure Operation Date: 03/30/20 07:30 <No data on this case meets the specified criteria> Surgeon Yohan Clayton DO [employer] lexi Powell Estimated Blood Loss 5 Findings Consistent with Post-Op Diagnosis Specimens fluid for culture/sensitivity Description of Procedure After informed consent was obtained the patient was taken to the operating room and placed in supine position. IV sedation was administered by anesthesia and titrated to effect. After adequate sedation the right thigh was sterilely prepped and draped in usual fashion. A 15 blade scalpel was used to make a linear incision directly over the abscess. Blunt finger fractionation was used to carry this down through the soft tissue. The tissue was mostly inflamed and indurated rather than fluid. There was a small amount of purulent fluid and a sample was sent for culture and sensitivity. We suctioned out any fluid and there was some tunneling both laterally superiorly and medially. We thoroughly irrigated this cavity out. We then placed half inch plain packing. Marcaine with epinephrine was injected around the abscess to help with postoperative analgesia. A sterile dressing was applied. The patient was awakened and transferred recovery in stable condition. My physician corporate law assistant assisted throughout all aspects of the case including prepping and dressing placement. I attest to the content of the Intraoperative Record and any orders documented therein. Any exceptions are noted below.
--- NOTE | 2020-03-30 08:17 | Anesthesiology Progress Note ---
Date of Service March 30, 2020 Anesthesia Post Procedure Vital Signs Vital Signs: Temp Pulse Pulse Pulse Resp BP Pulse Ox 03/30/20 08:15 36.4 C L 73 16 115/69 100 03/30/20 08:06 36.8 C 72 16 116/59 L 100 03/30/20 07:13 36.6 C 73 18 110/72 96 03/30/20 02:21 03/29/20 23:55 36.7 C 80 18 156/90 H 97 03/29/20 21:13 83 155/81 H 03/29/20 19:30 16 95 03/29/20 14:59 36.5 C 82 20 112/66 98 03/29/20 09:36 88 119/72 93 Pulse Ox 03/30/20 08:15 03/30/20 08:06 03/30/20 07:13 03/30/20 02:21 94 03/29/20 23:55 03/29/20 21:13 03/29/20 19:30 03/29/20 14:59 03/29/20 09:36 Pain Intensity Right Thigh: Pain Intensity: 6 Transfer of Care Handoff Completed per policy Notes Mental Status: alert / awake / arousable and participated in evaluation Patient Amnestic to Procedure: Yes Nausea / Vomiting: adequately controlled Pain: adequately controlled Airway Patency, RR, SpO2: stable & adequate BP & HR: stable & adequate Hydration State: stable & adequate Anesthetic Complications: no major complications apparent and Pt Satisfied with anesthetic care
[2020-03-30] MEDS: PANTOprazole 40 MG TAB PO SCH (09:13)
[2020-03-30] MEDS: LACTOBACILLUS ACIDOPHILUS (FLORANEX) TAB PO SCH (09:13)
[2020-03-30] MEDS: carvediloL 6.25 MG TAB PO SCH ×2 (09:13→20:14)
[2020-03-30] MEDS: ASCORBIC ACID 500 MG TAB PO SCH (09:13)
[2020-03-30] MEDS: ASPIRIN 81 MG ECTAB PO SCH (09:13)
[2020-03-30] MEDS: PSYLLIUM 58.6% POWDER PACKET PO SCH (09:14)
[2020-03-30] MEDS: INSULIN ASPART 100 UNITS/ML 3 ML PEN SC SCH ×4 (09:16→21:43)
[2020-03-30] MEDS: INSULIN GLARGINE SOLOSTAR 100 UNITS/ML 3 ML PEN SQ SCH (09:17)
[2020-03-30] MEDS: DAPTOmycin 425 MG in SYRINGE 0 ML IV SCH (09:18)
[2020-03-30] MEDS: PIPERACILLIN/TAZOBACTAM 4.5 GM in DEXTROSE 5% 100 ML IV SCH ×3 (09:19→23:50)
[2020-03-30] MEDS: TRAMADOL HCL 50 MG TABLET PO PRN ×2 (09:27→20:14)
[2020-03-30] MEDS: ACETAMINOPHEN 325 MG TAB PO PRN ×2 (15:46→23:50)
--- NOTE | 2020-03-30 20:22 | Hospitalist Progress Note ---
Date of Service March 30, 2020 Assessment & Plan (1) Abscess of right thigh: now s/p I&D continue vanco and zosyn pending cultures appearing to improve (2) Diabetes mellitus type 2, insulin dependent: A1c 9.7 but sugars reasonable here, suggesting a strong lifestyle component. continue current care, hopefully can educate (3) CAD (coronary artery disease): asymptomatic. continue current meds (4) Chronic diastolic CHF (congestive heart failure): appearing compensated (5) Hypertension: BP reasonable given situation, continue to follow (6) Cardiomyopathy, nonischemic: ?GULSHAN driven. suspect GULSHAN - should have outpt sleep study (7) Dyslipidemia: Continue atorvastatin 20 mg daily (8) DVT prophylaxis: now post op - add lovenox Admission and Anticipated Discharge Date Admission Date: March 29, 2020 Subjective feeling ok post op pain reasonbale no other complaints Review of Systems Review of Systems: All systems reviewed & are unremarkable except as noted in HPI & below Physical Exam Physical Exam: gen aao pleasant nad heent nc at mmm breathing unlabored laying back in chair and does repeatedly fall asleep when i see him no respiratory distress RLE wound dressed, prior outlined margins for erythema no all resolved. no erythema noted, since just came from OR dressing not taken down at this time. Results & Data Results & Data ([facility]) Vital Signs (Past 12 Hours) Vital Signs Temp Pulse Pulse Pulse Resp BP Pulse Ox 03/30/20 20:12 98.1 F 89 18 165/83 H 93 03/30/20 15:10 97.7 F 77 18 145/80 H 94 03/30/20 14:49 78 18 97 03/30/20 11:30 97.9 F 74 17 168/82 H 99 03/30/20 10:30 97.9 F 76 17 129/74 94 03/30/20 09:32 154/103 H 03/30/20 09:29 77 20 175/83 H 97 03/30/20 09:07 76 16 158/91 H 97 03/30/20 08:30 97.9 F 76 18 148/82 H 94 PG Care Time/CCT Total # of Minutes Spent Total Time Spent with Patient: Total time spent is greater than 50% in coordination of care (as documented) at patient's floor/unit and/or counseling patient: Coding Level of Care Code 68798 Subseq Hosp Care Lvl 3 Diagnoses Abscess of right thigh L02.415 Diabetes mellitus type 2, insulin dependent E11.9; Z79.4 CAD (coronary artery disease) I25.10 Coronary Disease-Associated Artery/Lesion type: [place]bins artery [place] vs. transplanted heart: stebbins heart Associated angina: without angina Chronic diastolic CHF (congestive heart failure) I50.32 Hypertension I10 Cardiomyopathy, nonischemic I42.8 Dyslipidemia E78.5 DVT prophylaxis Z29.9 (1) CAD (coronary artery disease) Coronary Disease-Associated Artery/Lesion type: stebbins artery [place] vs. transplanted heart: stebbins heart Associated angina: without angina Qualified Code(s): I25.10 - Atherosclerotic heart disease of stebbins coronary artery without angina pectoris
[2020-03-31] MEDS: ONDANSETRON INJ 2 MG/ML 2 ML VIAL IV PRN (05:33)
[2020-03-31 06:24] LABS: Basophils # (auto) 0.01 K/uL (0-0.2); Basophils % (auto) 0.1 %; Eosinophils # (auto) 0.37 K/uL (0-0.5); Eosinophils % (auto) 3.6 %; Hematocrit (blood only) 37.8 % (42-52); Hemoglobin 12.2 g/dL (14.0-18.0); Immature Granulocytes # (auto) 0.02 K/uL (0.00-0.02); Immature Granulocytes % (auto) 0.2 %; Lymphocytes # (auto) 1.48 K/uL (1.2-3.4); Lymphocytes % (auto) 14.5 %; Mean Corpuscular Hemoglobin 28.1 pg (25-34); Mean Corpuscular Hgb Conc 32.3 g/dL (32-36); Mean Corpuscular Volume 87.1 fL (80-100); Mean Platelet Volume 9.1 fL (7.4-10.4); Monocytes # (auto) 0.65 K/uL (0.11-0.59); Monocytes % (auto) 6.4 %; Neutrophils # (auto) 7.66 K/uL (1.4-6.5); Neutrophils % (auto) 75.2 %; Platelet Count 217 K/uL (130-400); RDW Standard Deviation 44.8 fL (36.4-46.3); Red Blood Count 4.34 M/uL (4.7-6.1); White Blood Count 10.19 K/uL (4.8-10.8)
[2020-03-31 06:49] LABS: BUN Creatinine Ratio 16.3 (10-20); Calcium 8.9 mg/dl (8.5-10.1); Creatinine Clr Calc Pharmacy 110.6 ml/min; Est GFR (African American) 83.5; Potassium 3.2 mmol/L (3.5-5.1)
[2020-03-31] MEDS: INSULIN ASPART 100 UNITS/ML 3 ML PEN SC SCH ×4 (09:05→21:11)
[2020-03-31] MEDS: INSULIN GLARGINE SOLOSTAR 100 UNITS/ML 3 ML PEN SQ SCH (09:06)
[2020-03-31] MEDS: PSYLLIUM 58.6% POWDER PACKET PO SCH (09:14)
[2020-03-31] MEDS: ASCORBIC ACID 500 MG TAB PO SCH (09:15)
[2020-03-31] MEDS: LACTOBACILLUS ACIDOPHILUS (FLORANEX) TAB PO SCH (09:16)
[2020-03-31] MEDS: PANTOprazole 40 MG TAB PO SCH (09:16)
[2020-03-31] MEDS: ASPIRIN 81 MG ECTAB PO SCH (09:16)
[2020-03-31] MEDS: carvediloL 6.25 MG TAB PO SCH ×2 (09:16→21:11)
[2020-03-31] MEDS: PIPERACILLIN/TAZOBACTAM 4.5 GM in DEXTROSE 5% 100 ML IV SCH (09:18)
[2020-03-31] MEDS: DAPTOmycin 425 MG in SYRINGE 0 ML IV SCH (09:18)
--- NOTE | 2020-03-31 09:28 | Surgery Progress Note ---
Date of Service March 31, 2020 Assessment & Plan (1) Abscess of right thigh: Packing/dressing change today. Clinically appears slightly worse and he now has a slightly elevated white count with a left shift. Cultures do show that is is susceptible to daptomycin. I would consider infectious disease consult. If no improvement over the next 24 hours may need to repeat CT scan of the right lower extremity. Admission and Anticipated Discharge Date Admission Date: March 29, 2020 Subjective Patient seen. No new complaints. He continues to have pain along the medial side of his right leg. Physical Exam Physical Exam: Alert no acute distress The area of the abscess is improved and that the enlarged central abscess itself has now gone away however the erythema and cellulitis appears to have worsened. Is extending more distally and wraps around his leg on the medial side. It is tender and warm. We did change the packing. There was serosanguineous fluid as well as some purulent fluid on the dressing and packing. No che pus was expressed. Results & Data ([facility]) Vital Signs (Past 12 Hours) Vital Signs Temp Pulse Pulse Pulse Resp BP Pulse Ox 03/31/20 07:48 36.6 C 79 18 150/81 H 98 03/31/20 04:54 03/31/20 02:47 36.9 C 85 18 144/82 H 96 03/31/20 02:38 82 18 97 03/30/20 23:22 36.7 C 82 16 172/94 H 95 Pulse Ox 03/31/20 07:48 03/31/20 04:54 96 03/31/20 02:47 03/31/20 02:38 03/30/20 23:22 PG Care Time/CCT Total # of Minutes Spent Total Time Spent with Patient: Total time spent is greater than 50% in coordination of care (as documented) at patient's floor/unit and/or counseling patient: Coding Level of Care Code None Diagnoses Abscess of right thigh L02.415
[2020-03-31] MEDS: ENOXAPARIN INJ 40 MG/0.4 ML SYR SQ SCH (10:15)
--- NOTE | 2020-03-31 14:20 | Hospitalist Progress Note ---
Date of Service March 31, 2020 Assessment & Plan (1) Abscess of right thigh: now s/p I&D cultures with staph aureus, will continue Daptomycin, stop Zosyn no growth on blood cultures more erythema today, but no fever, WBC up to 10k hold on ID consult for now repeat CBC tomorrow, if he has fever or WBC goes up further then get CT lower extremity (2) Diabetes mellitus type 2, insulin dependent: A1c 9.7 but sugars reasonable here, suggesting a strong lifestyle component. continue current care, hopefully can educate monitor for hypoglycemia, no episodes (3) CAD (coronary artery disease): asymptomatic. continue current meds (4) Chronic diastolic CHF (congestive heart failure): appearing compensated (5) Hypertension: BP reasonable given situation, continue to follow (6) Cardiomyopathy, nonischemic: ?GULSHAN driven. suspect GULSHAN - should have outpt sleep study (7) Dyslipidemia: Continue atorvastatin 20 mg daily (8) DVT prophylaxis: now post op - add lovenox Admission and Anticipated Discharge Date Admission Date: March 29, 2020 Subjective patient doing well, minimal pain from right thigh surgery examined it this morning, some increased redness posterior leg patient is eating well, ambulating in the halls c/o ear bud getting stuck in left ear canal, I removed this at the bedside no fever, vitals stable blood cultures with no growth, wound culture with Staph aureus Review of Systems Review of Systems: All systems reviewed & are unremarkable except as noted in Subjective Physical Exam Constitutional: well developed and + obese; no acute distress Eyes: PERRL, conjunctivae normal, anicteric sclerae ENMT: external ear and nose normal, oropharynx normal Neck: trachea midline, no thyromegaly Respiratory: normal respiratory effort, lungs clear to auscultation Cardiovascular: RRR, no murmur, no edema Gastrointestinal (Abdomen): normal bowel sounds, soft, nontender, no hepatosplenomegaly Musculoskeletal: no cyanosis or clubbing, extremities motor strength 5/5 Skin: + wound (right proximal thigh incision/drainage wound, packed) and + erythema (surrounding abscess, mildly tender, warm) Neurologic: patellar DTR's 2+ bilat, sensation intact and PERRL, EOMI, accommodation nl, no face palsy, no dysarthria Psychiatric: A+Ox3, euthymic affect Lymphatic: no cervical or axillary lymphadenopathy Results & Data Results & Data ([facility]) Vital Signs (Past 12 Hours) Vital Signs Temp Pulse Pulse Pulse Resp BP Pulse Ox 03/31/20 07:48 36.6 C 79 18 150/81 H 98 03/31/20 04:54 03/31/20 02:47 36.9 C 85 18 144/82 H 96 03/31/20 02:38 82 18 97 Pulse Ox 03/31/20 07:48 03/31/20 04:54 96 03/31/20 02:47 03/31/20 02:38 Laboratory Results Laboratory Results - last 24 hr 03/30/20 03/30/20 03/31/20 17:18 20:46 06:00 WBC 10.19 RBC 4.34 L Hgb 12.2 L Hct 37.8 L MCV 87.1 MCH 28.1 MCHC 32.3 RDW Std Deviation 44.8 RDW Coeff of [place] 14.0 Plt Count 217 MPV 9.1 Immature Gran % (Auto) 0.2 Neut % (Auto) 75.2 Lymph % (Auto) 14.5 [place] % (Auto) 6.4 Eos % (Auto) 3.6 Baso % (Auto) 0.1 Neut # (Auto) 7.66 H Lymph # (Auto) 1.48 [place] # (Auto) 0.65 H Eos # (Auto) 0.37 Baso # (Auto) 0.01 Immature Gran # (Auto) 0.02 Sodium Potassium Chloride Carbon Dioxide Anion Gap BUN Creatinine Est Cr Clr Drug Dosing Est GFR ( Amer) Est GFR (Non-Af Amer) BUN/Creatinine Ratio Glucose POC Glucose 152 H 191 H Calcium 03/31/20 03/31/20 03/31/20 06:00 08:01 11:50 WBC RBC Hgb Hct MCV MCH MCHC RDW Std Deviation RDW Coeff of [place] Plt Count MPV Immature Gran % (Auto) Neut % (Auto) Lymph % (Auto) [place] % (Auto) Eos % (Auto) Baso % (Auto) Neut # (Auto) Lymph # (Auto) [place] # (Auto) Eos # (Auto) Baso # (Auto) Immature Gran # (Auto) Sodium 141 Potassium 3.2 L Chloride 106 Carbon Dioxide 30 Anion Gap 5.0 BUN 19 H Creatinine 1.18 Est Cr Clr Drug Dosing 110.6 Est GFR ( Amer) 83.5 Est GFR (Non-Af Amer) 72.0 BUN/Creatinine Ratio 16.3 Glucose 102 H POC Glucose 111 H 88 Calcium 8.9 Medications Administered Current Inpatient Medications Acetaminophen (Acetaminophen 325 Mg Tab) 650 mg PO Q4H PRN PRN Reason: Mild Pain Stop: 04/29/20 08:32 Last Admin: 03/30/20 23:50 Dose: 650 mg Documented by: Al Hydrox/Mg Hydrox/Simethicone (Aluminum/Magnesium Susp 30 Ml Udc) 30 ml PO Q6H PRN PRN Reason: Dyspepsia Stop: 04/28/20 01:54 Ascorbic Acid (Ascorbic Acid 500 Mg Tab) 500 mg PO QAM [facility] Stop: 04/28/20 08:59 Last Admin: 03/31/20 09:15 Dose: 500 mg Documented by: Aspirin (Aspirin 81 Mg Ectab) 81 mg PO QAM [facility] Stop: 04/28/20 08:59 Last Admin: 03/31/20 09:16 Dose: 81 mg Documented by: Atorvastatin Calcium (Atorvastatin 20 Mg Tab) 20 mg PO QAM [facility] Stop: 04/28/20 08:59 Last Admin: 03/30/20 09:13 Dose: 20 mg Documented by: Carvedilol (Carvedilol 6.25 Mg Tab) 6.25 mg PO BID [facility] Stop: 04/28/20 08:59 Last Admin: 03/31/20 09:16 Dose: 6.25 mg Documented by: Dextrose (Dextrose 50% 50 Ml Syringe) 25 - 50 ml IV UD PRN; Protocol PRN Reason: Hypoglycemia Protocol Stop: 04/28/20 01:54 Enoxaparin Sodium (Enoxaparin Inj 40 Mg/0.4 Ml Syr) 40 mg SQ QAM [facility] Stop: 04/30/20 08:59 Last Admin: 03/31/20 10:15 Dose: 40 mg Documented by: Glucagon (Glucagon For Inj 1 Mg Vial) 1 mg SQ UD PRN; Protocol PRN Reason: Hypoglycemia Protocol Stop: 04/28/20 01:54 Glucose (Glucose 10 Tabs/Tube) 4 - 8 tabs PO UD PRN; Protocol PRN Reason: Hypoglycemia Protocol Stop: 04/28/20 01:54 Glucose (Glucose 40% Gel 15 Gm Tube) 15 - 30 gm PO UD PRN; Protocol PRN Reason: Hypoglycemia Protocol Stop: 04/28/20 01:54 Piperacillin Sod/Tazobactam (Sod 4.5 gm/ Dextrose) 120 mls @ 30 mls/hr IV Q8H [facility]; Protocol Stop: 04/05/20 07:59 Last Infusion: 03/31/20 14:15 Dose: Infused Documented by: Daptomycin 425 mg/ Syringe 8.5 mls @ 4.25 mls/min IV Q24H [facility]; Protocol Stop: 04/05/20 08:59 Last Admin: 03/31/20 09:18 Dose: 4.25 mls/min Documented by: Insulin Aspart (Insulin Aspart 100 Units/Ml 3 Ml Pen) 0 units SC ACHS [facility] Stop: 04/29/20 08:36 Last Admin: 03/31/20 12:51 Dose: 7 units Documented by: Insulin Glargine (Insulin Glargine Solostar 100 Units/Ml 3 Ml Pen) 60 units SQ QAM [facility] Stop: 04/28/20 08:59 Last Admin: 03/31/20 09:06 Dose: 60 units Documented by: Lactobacillus Acidophilus (Lactobacillus Acidophilus (Floranex) Tab) 1 tab PO QAM [facility] Stop: 04/28/20 08:59 Last Admin: 03/31/20 09:16 Dose: 1 tab Documented by: Magnesium Hydroxide (Magnesium Hydroxide Susp 30 Ml Udc) 30 ml PO Q6H PRN PRN Reason: Constipation Stop: 04/28/20 01:54 Melatonin (Melatonin 3 Mg Tab) 3 mg PO HS PRN PRN Reason: Sleep Stop: 04/28/20 23:54 Last Admin: 03/30/20 00:08 Dose: 3 mg Documented by: Miscellaneous (Carbohydrates For Hypoglycemia ) 15 - 30 gm PO UD PRN PRN Reason: Hypoglycemia Protocol Stop: 04/28/20 01:54 Miscellaneous Information (Piperacill/Tazobac Consult Active) 1 ea N/A UD PRN PRN Reason: Consult Stop: 04/28/20 01:54 Ondansetron HCl (Ondansetron Inj 2 Mg/Ml 2 Ml Vial) 4 mg IV Q6H PRN PRN Reason: Nausea Stop: 04/28/20 01:54 Last Admin: 03/31/20 05:33 Dose: 4 mg Documented by: Pantoprazole Sodium (Pantoprazole 40 Mg Tab) 40 mg PO QAM [facility] Stop: 04/28/20 08:59 Last Admin: 03/31/20 09:16 Dose: 40 mg Documented by: Psyllium Hydrophilic Mucilloid (Psyllium 58.6% Powder Packet) 1 pkt PO QAM [facility] Stop: 04/28/20 08:59 Last Admin: 03/31/20 09:14 Dose: 1 pkt Documented by: Tramadol HCl (Tramadol Hcl 50 Mg Tablet) 50 mg PO BID PRN PRN Reason: pain Stop: 04/28/20 01:54 Last Admin: 03/30/20 20:14 Dose: 50 mg Documented by: PG Care Time/CCT Total # of Minutes Spent Total Time Spent with Patient: Total time spent is greater than 50% in coordination of care (as documented) at patient's floor/unit and/or counseling patient: Coding Level of Care Code 97815 Subseq Hosp Care Lvl 2 Diagnoses Abscess of right thigh L02.415 Diabetes mellitus type 2, insulin dependent E11.9; Z79.4 CAD (coronary artery disease) I25.10 Coronary Disease-Associated Artery/Lesion type: [place] artery [place] vs. transplanted heart: [place] heart Associated angina: without angina Chronic diastolic CHF (congestive heart failure) I50.32 Hypertension I10 Cardiomyopathy, nonischemic I42.8 Dyslipidemia E78.5 DVT prophylaxis Z29.9 (1) CAD (coronary artery disease) Coronary Disease-Associated Artery/Lesion type: [place] artery [place] vs. transplanted heart: [place] heart Associated angina: without angina Qualified Code(s): I25.10 - Atherosclerotic heart disease of [place] coronary artery without angina pectoris
[2020-03-31] MEDS ORDERED: BUMETANIDE 1 MG TAB PO ONE (17:00)
[2020-04-01 05:39] LABS: Basophils # (auto) 0.01 K/uL (0-0.2); Basophils % (auto) 0.1 %; Eosinophils # (auto) 0.26 K/uL (0-0.5); Eosinophils % (auto) 3.6 %; Hematocrit (blood only) 36.5 % (42-52); Immature Granulocytes # (auto) 0.01 K/uL (0.00-0.02); Immature Granulocytes % (auto) 0.1 %; Lymphocytes # (auto) 1.71 K/uL (1.2-3.4); Lymphocytes % (auto) 23.8 %; Mean Corpuscular Hemoglobin 28.3 pg (25-34); Mean Corpuscular Hgb Conc 32.9 g/dL (32-36); Mean Corpuscular Volume 86.1 fL (80-100); Mean Platelet Volume 9.1 fL (7.4-10.4); Monocytes # (auto) 0.56 K/uL (0.11-0.59); Monocytes % (auto) 7.8 %; Neutrophils # (auto) 4.64 K/uL (1.4-6.5); Neutrophils % (auto) 64.6 %; Platelet Count 207 K/uL (130-400); RDW Standard Deviation 43.9 fL (36.4-46.3); Red Blood Count 4.24 M/uL (4.7-6.1); White Blood Count 7.19 K/uL (4.8-10.8)
[2020-04-01 06:22] LABS: Calcium 8.8 mg/dl (8.5-10.1); Creatinine Clr Calc Pharmacy 107.8 ml/min; Est GFR (Non-African American) 69.9; Potassium 3.4 mmol/L (3.5-5.1)
[2020-04-01] MEDS: PSYLLIUM 58.6% POWDER PACKET PO SCH (08:08)
[2020-04-01] MEDS: ENOXAPARIN INJ 40 MG/0.4 ML SYR SQ SCH (08:09)
[2020-04-01] MEDS: LACTOBACILLUS ACIDOPHILUS (FLORANEX) TAB PO SCH (08:11)
[2020-04-01] MEDS: ASCORBIC ACID 500 MG TAB PO SCH (08:11)
[2020-04-01] MEDS: ASPIRIN 81 MG ECTAB PO SCH (08:11)
[2020-04-01] MEDS: carvediloL 6.25 MG TAB PO SCH (08:11)
[2020-04-01] MEDS: PANTOprazole 40 MG TAB PO SCH (08:11)
[2020-04-01] MEDS: DAPTOmycin 425 MG in SYRINGE 0 ML IV SCH (08:12)
[2020-04-01] MEDS: ONDANSETRON INJ 2 MG/ML 2 ML VIAL IV PRN (08:12)
--- NOTE | 2020-04-01 08:49 | Surgery Progress Note ---
Date of Service April 01, 2020 Assessment & Plan (1) Abscess of right thigh: clinically improving wbc decreased today continue IV antibiotics continue packing changes daily. d/w nurse who will change today. Admission and Anticipated Discharge Date Admission Date: March 29, 2020 Subjective pt seen. leg feeling better today. Physical Exam Physical Exam: alert. nad erythema much improved today. less tender. Results & Data ([facility]) Vital Signs (Past 12 Hours) Vital Signs Temp Pulse Pulse Pulse Resp BP BP 04/01/20 07:36 36.7 C 79 16 130/86 04/01/20 03:44 77 27 H 03/31/20 23:52 36.8 C 81 16 149/82 H 03/31/20 21:08 81 18 151/83 H Pulse Ox 04/01/20 07:36 95 04/01/20 03:44 97 03/31/20 23:52 94 03/31/20 21:08 96 PG Care Time/CCT Total # of Minutes Spent Total Time Spent with Patient: Total time spent is greater than 50% in coordination of care (as documented) at patient's floor/unit and/or counseling patient: Coding Level of Care Code None Diagnoses Abscess of right thigh L02.415
[2020-04-01] MEDS: INSULIN GLARGINE SOLOSTAR 100 UNITS/ML 3 ML PEN SQ SCH (09:41)
[2020-04-01] MEDS: INSULIN ASPART 100 UNITS/ML 3 ML PEN SC SCH ×2 (09:41→12:59)
--- NOTE | 2020-04-01 09:43 | Anesthesiology Progress Note ---
Date of Service April 01, 2020 Anesthesia Post Procedure Vital Signs Vital Signs: Temp Pulse Pulse Pulse Resp BP BP 04/01/20 07:36 36.7 C 79 16 130/86 04/01/20 03:44 77 27 H 03/31/20 23:52 36.8 C 81 16 149/82 H 03/31/20 21:08 81 18 151/83 H 03/31/20 15:39 36.5 C 75 18 129/74 Pulse Ox 04/01/20 07:36 95 04/01/20 03:44 97 03/31/20 23:52 94 03/31/20 21:08 96 03/31/20 15:39 91 Notes Mental Status: alert / awake / arousable and participated in evaluation Patient Amnestic to Procedure: Yes Nausea / Vomiting: adequately controlled Pain: adequately controlled Airway Patency, RR, SpO2: stable & adequate BP & HR: stable & adequate Hydration State: stable & adequate Anesthetic Complications: no major complications apparent
--- NOTE | 2020-04-01 09:43 | Hospitalist Progress Note ---
Date of Service April 01, 2020 Assessment & Plan Admission and Anticipated Discharge Date Admission Date: March 29, 2020 Results & Data Results & Data ([facility]) Vital Signs (Past 12 Hours) Vital Signs Temp Pulse Pulse Pulse Resp BP Pulse Ox 04/01/20 07:36 36.7 C 79 16 130/86 95 04/01/20 03:44 77 27 H 97 03/31/20 23:52 36.8 C 81 16 149/82 H 94 Laboratory Results 04/01/20 04/01/20 04/01/20 Range/Units 08:17 05:26 05:26 WBC 7.19 (4.8-10.8) K/uL RBC 4.24 L (4.7-6.1) M/uL Hgb 12.0 L (14.0-18.0) g/dL Hct 36.5 L (42-52) % MCV 86.1 (80-100) fL MCH 28.3 (25-34) pg MCHC 32.9 (32-36) g/dL RDW Std Deviation 43.9 (36.4-46.3) fL RDW Coeff of [place] 14.0 (11.5-14.5) % Plt Count 207 (130-400) K/uL MPV 9.1 (7.4-10.4) fL Immature Gran % (Auto) 0.1 % Neut % (Auto) 64.6 % Lymph % (Auto) 23.8 % [place] % (Auto) 7.8 % Eos % (Auto) 3.6 % Baso % (Auto) 0.1 % Neut # (Auto) 4.64 (1.4-6.5) K/uL Lymph # (Auto) 1.71 (1.2-3.4) K/uL [place] # (Auto) 0.56 (0.11-0.59) K/uL Eos # (Auto) 0.26 (0-0.5) K/uL Baso # (Auto) 0.01 (0-0.2) K/uL Immature Gran # (Auto) 0.01 (0.00-0.02) K/uL Sodium 139 (136-145) mmol/L Potassium 3.4 L (3.5-5.1) mmol/L Chloride 104 (98-107) mmol/L Carbon Dioxide 30 (21-32) mmol/L Anion Gap 5.0 (3-11) BUN 17 (7-18) mg/dl Creatinine 1.21 (0.6-1.4) mg/dl Est Cr Clr Drug Dosing 107.8 ml/min Est GFR ( Amer) 81.0 Est GFR (Non-Af Amer) 69.9 BUN/Creatinine Ratio 14.0 (10-20) Glucose 125 H (70-99) mg/dl POC Glucose 128 H (70-99) mg/dl Calcium 8.8 (8.5-10.1) mg/dl 03/31/20 03/31/20 03/31/20 Range/Units 20:43 17:15 11:50 WBC (4.8-10.8) K/uL RBC (4.7-6.1) M/uL Hgb (14.0-18.0) g/dL Hct (42-52) % MCV (80-100) fL MCH (25-34) pg MCHC (32-36) g/dL RDW Std Deviation (36.4-46.3) fL RDW Coeff of [place] (11.5-14.5) % Plt Count (130-400) K/uL MPV (7.4-10.4) fL Immature Gran % (Auto) % Neut % (Auto) % Lymph % (Auto) % [place] % (Auto) % Eos % (Auto) % Baso % (Auto) % Neut # (Auto) (1.4-6.5) K/uL Lymph # (Auto) (1.2-3.4) K/uL [place] # (Auto) (0.11-0.59) K/uL Eos # (Auto) (0-0.5) K/uL Baso # (Auto) (0-0.2) K/uL Immature Gran # (Auto) (0.00-0.02) K/uL Sodium (136-145) mmol/L Potassium (3.5-5.1) mmol/L Chloride (98-107) mmol/L Carbon Dioxide (21-32) mmol/L Anion Gap (3-11) BUN (7-18) mg/dl Creatinine (0.6-1.4) mg/dl Est Cr Clr Drug Dosing ml/min Est GFR ( Amer) Est GFR (Non-Af Amer) BUN/Creatinine Ratio (10-20) Glucose (70-99) mg/dl POC Glucose 173 H 143 H 88 (70-99) mg/dl Calcium (8.5-10.1) mg/dl PG Care Time/CCT Total # of Minutes Spent Total Time Spent with Patient: Total time spent is greater than 50% in coordination of care (as documented) at patient's floor/unit and/or counseling patient: Coding
[2020-04-01] MEDS ORDERED: POTASSIUM CHLORIDE 20 MEQ TABCR PO STA (09:50)
--- NOTE | 2020-04-01 11:09 | Discharge Summary ---
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 Patient has a known history of MRSA, and reports that this infection is similar to his previous episodes. He denies any recent travel or sick exposures. Admission Exam Per Admitting Provider The patient is awake, alert and oriented 3, well developed and well nourished, normocephalic and atraumatic, lying in bed and in no acute distress. HEENT--PERRL, EOMI, mucous membranes and oropharynx normal. Neck--supple. No JVD. No bruits. Thyroid normal, trachea midline, no adenopathy. Heart--normal S1 and S2. No murmurs, rubs or gallops. Lungs--clear bilaterally, no respiratory distress, no accessory muscle use. Abdomen--normal bowel sounds and soft. Nontender. Nondistended. Morbidly obese Extremities/dermatologic-right thigh with central area of induration and erythema 4 cm in size, surrounded by another 2 cm of erythema. Small central area which looks like it attempted to drain spontaneously. Neurologic--cranial nerves II through XII grossly intact. Rheumatologic--normal range of motion. Psychiatric--normal affect. Principal Diagnosis Right Thigh Abscess, MRSA Discharge Exam Constitutional well developed and well nourished; no acute distress Eyes + anicteric sclerae and PERRL ENMT Ears: no hearing impairment Nose: no external nose abnormality Neck normal visual inspection Respiratory normal respiratory effort; no labored breathing Auscultation: + diminished lung sounds; no crackles and no wheezes Cardiovascular Rate/Rhythm: regular rate and regular rhythm Extremities: + edema (trace b/l) Gastrointestinal (Abdomen) Inspection/Auscultation: + abdomen distended and normal bowel sounds Percussion/Palpation: abdomen soft; abdomen nontender, no guarding and abdomen not rigid Musculoskeletal no cyanosis or clubbing, extremities motor strength 5/5 Skin approximately 1.5-2cm opening to R proximal thigh with packing, adjacent smaller opening present. no expressable purulant material minimal tenderness to medial aspect on palpation erythema to proximal thigh improved Neurologic patellar DTR's 2+ bilat, sensation intact and PERRL, EOMI, accommodation nl, no face palsy, no dysarthria Psychiatric Orientation: alert and oriented x 3 Lymphatic no cervical or axillary lymphadenopathy Discharge Data Allergies Allergy/AdvReac Type Severity Reaction Status Date / Time No Known Allergies Allergy Verified 03/28/20 23:04 Consultations 03/29/20 00:25 ED Decision to Admit Stat 03/29/20 01:09 ED Decision to Admit Stat 03/29/20 01:55 Consult Case Management - Discharge Planning Routine 03/29/20 13:23 Consult General Surgery Routine Procedures Performed Operation Date: 03/30/20 07:30 Actual Procedures p Right Thigh Abscess Incision and Drainage(Right) - Yohan Clayton, Ordered Studies 03/28/20 21:49 US extremity nonvascular Urgent US venous doppler LE RT Urgent CXR Diabetes Follow up Diabetes Follow-up Needed for HgbA1c >9% Hospital Course (1) Abscess of right thigh: * Presented for RIGHT thigh abscess, failed outpatient treatment with doxycycline. * Ultrasound R thigh with two subcutaneous fluid collections, measuring up to 2 x 0.4 x 0.7 cm, suggestive abscesses. Patient with history of MRSA * Place on Daptomycin, ZOsyn empirically. * Cultures with MRSA and patient transitioned to oral Clindamycin to complete course of 14 days total duration. * Wound with packing -- mother to assist per nursing although if too much would benefit from home health * Follow up with General Surgery, PCP, CHF clinic/cardiology outpatient (2) Diabetes mellitus type 2, insulin dependent: * A1c 9.7 but sugars reasonable here, suggesting a strong lifestyle component. * Discussed importance of making healthy dietary choices and continuing to monitor his sugars as this will contribute to poor wound healing * Resumed home medications at discharge (3) CAD (coronary artery disease): * asymptomatic. continued home medications (4) Chronic diastolic CHF (congestive heart failure): * appearing compensated although did have some weight gain and received bumex 2mg BID on 03/31 and additional 2mg dose AM 04/01 with instructions to continue another dose this evening and to check his weights for closer monitoring to see if he will need more frequent dosing of his bumex and metolazone * Follow up with cardiology/chf clinic as above * Continued home cardedilol. * Not on MELVIN/ARBC but follows with Dr. Dodge outpatient for his CKD III. Recommend discussing starting this at cardiology follow up (5) Hypertension: * BP stable but elevated, 151/83 * Follow up with PCP/cards as above * Continued home carvedilol (6) Cardiomyopathy, nonischemic: * ?GULSHAN driven. suspect GULSHAN and did order CPAP overnight. Patient not keen on idea of utilizing one but I did have lengthy conversation on underlying untreated sleep apnea and recommended that he follow up outpatient for a formal sleep study after discussion with his PCP (7) Dyslipidemia: * Continue atorvastatin 20 mg daily-- had been on hold while on Dapto, but resumed now that discharged on Clinda as above (8) Hypokalemia: * K 3.4 -- ordered 20meq given CKD III * Likely due to multiple doses of Bumex as above * If patient requiring more frequent doses, would likely need to consider oral potassium replacement daily -- defer to PCP and instructed to eat more potassium rich foods. * In addition, initiation of ARB/MELVIN may assist at keeping stable level (9) DVT prophylaxis: now post op - add lovenox Total Time Total Time Spent Total Time Spent (In Minutes): 60 Discharge Plan Discharge Items Patient Disposition: Home - Self-Care Reason For Visit: RIGHT THIGH ABSCESS/CELLULITIS Discharge Diagnosis: Right Thigh Abscess, MRSA Condition on Discharge: Fair Goals: You have been hospitalized for an urgent problem which required surgery. During your stay at [facility], we have made an effort to correct the problem that brought you to the hospital while keeping you as comfortable as possible. Surgery and medications were used to bring your condition under control and your discharge instructions will include directions for any medications you should take after leaving the hospital. Please make sure to follow the advice of your surgeon regarding follow up with the surgeon and with your primary care provider. Activity: Resume your previous activity Non-emergency contact: Primary Care Provider and Surgeon Call non-emergency contact if: you have any medication questions, your symptoms worsen, your pain is not controlled and you have a fever Follow-up/Referrals: Aldair Heath MD [Physician] - 04/11/20 12:00 pm (APPT WITH DR HEATH) Idris Moreno III, MD [Primary Care Provider] - 04/05/20 9:00 am (APPT WITH EMMA VALLADARES) Yohan Clayton, DO [Surgeon] - 04/05/20 9:45 am (Please call to schedule follow up in clinic within 1-2 weeks) Diet: Carb Consistent or DM2 and Heart Healthy Addtl Attending Provider Instructions: Call 911 and go to the Emergency Room if: * You have tightness or pain in your chest that does not go away with rest or Nitroglycerin * You are very short of breath even with rest Call your doctor if any of the following symptoms or problems start or get worse: * Shortness of breath or difficulty breathing * Wake up at night short of breath * Chest pain * Cough * Swelling of your hands, fee, or legs * More fatigued or tired with your normal activity * Palpitations - sudden fast heart beats WEIGHT * Weigh yourself every morning after using the bathroom. * Use the same scale. * Wear the same amount of clothing. * Write your weight down on your chart. * Call your doctor if you gain more than 2-3 pounds in 1-2 days. MEDICATIONS * Use this discharge instruction sheet for instructions. * Take your medications at the time your doctor ordered. * Do not skip a dose of your medicines. * If you miss a dose of medicine, take as soon as possible, but DO NOT DOUBLE A DOSE. * Read your medicine information when you get home. * Know all of the side effects of your medicine. * Call your doctor's office if you have any side effects. * Be sure all of your doctors know what medicine and herbs you take (including cold, flu, and herbal medicine). * Pain Medicine: If you do not get relief from your pain, please call your doctor for help. Take the following with you to your follow-up doctor appointments: * Weight Chart * Medication List * List of questions Do not drink excessive alcohol, beer or wine. Addtl School Operations [employer] Provider Instructions: You have been hospitalized for an infection (abscess x 2) to your right thigh. General surgery was consulted and you had these abscesses drained and are currently packed. Please change right thigh dressing daily with 1/2" nu-gauze, cover with 4x4 gauze, and adhere with medipore tape. Please follow up with them as scheduled. You can have your mother assist with these changes but if necessary you can be set up with wound care. You have been on IV antibiotics and wound cultures show MRSA, which you have had in the past. The culture show that this is sensitive to Clindamycin, and you are being sent on this medication at discharge for a total of 14 days. You have 10 additional days of treatment. Please note that this medication can lead to infection called c.diff, as discussed. If you have increased diarrhea, frequency, foul smell, please call your doctor right away. Please continue to check your sugars at home and maintain a healthy diet, as your sugars have been well controlled in the hospital and elevated sugars can contribute to poor wound healing. As discussed, you should follow up with your PCP regarding a possible sleep study as an outpatient as you had trialed while you have been in the hospital. As discussed, multiple health consequences of untreated sleep apnea. With regards to your diuretics, you should continue to weigh yourself regularly and utilize your bumex more frequently to maintain a baseline weight. You have been given a dose this morning and should take an additional dose this evening. Then, please continue for any weight >3lb from baseline in 24 hour period of time. You should follow up with your PCP in the next week to monitor your progress. Please return to the emergency department if you have any worsening redness, draining, fever, or for any other symptoms that are concerning for you. It has been a pleasure being a part of the medical team providing for you while you have been in the hospital. Pending Studies at Discharge: No Stand-Alone Forms: My [facility] [employer], Work/School Release (Inpt), Smoking Cessation Medications and DC Order Prescriptions: New clindamycin HCl 300 mg capsule 300 mg PO Q6H 10 Days Qty: 40 RF: 0 Continued (DME) OneTouch Verio test strips Strip See Dose Instructions .ROUTE .MEDSUPPLY Qty: 100 RF: 11 (DME) pen needle, diabetic [BD Ultra-Fine [place] Pen Needle] 32 gauge x 5/32" needle See Dose Instructions .ROUTE .MEDSUPPLY Qty: 100 RF: 5 carvedilol 6.25 mg tablet 6.25 mg PO BID Qty: 180 RF: 3 Lantus Solostar U-100 Insulin 100 unit/mL (3 mL) insulin pen 60 unit SUBCUT QAM Qty: 15 RF: 11 insulin aspart U-100 100 unit/mL (3 mL) insulin pen 10 unit SQ TID Qty: 15 RF: 11 bumetanide 2 mg tablet 2 mg PO BID PRN (Reason: Weight Gain) Qty: 60 RF: 5 metolazone 5 mg tablet 5 mg PO DAILY PRN (Reason: weight gain) Qty: 30 RF: 11 tramadol 50 mg tablet 50 mg PO BID PRN (Reason: pain) Qty: 60 RF: 0 ascorbate calcium (vitamin C) 500 mg tablet 500 mg PO QAM RF: 0 (DME) pen needle, diabetic [Unifine Pentips] 32 gauge x 1/4" needle See Dose Instructions .ROUTE .MEDSUPPLY Qty: 50 RF: 0 (DME) pen needle, diabetic [BD Ultra-Fine Micro Pen Needle] 32 gauge x 1/4" needle See Dose Instructions .ROUTE .MEDSUPPLY Qty: 50 RF: 0 (DME) lancets [OneTouch Delica Lancets] 30 gauge misc See Dose Instructions .ROUTE .MEDSUPPLY Qty: 25 RF: 0 aspirin 81 mg Tablet,Delayed Release (Dr/Ec) 81 mg PO QAM RF: 0 atorvastatin [Lipitor] 20 mg tablet 20 mg PO QAM RF: 0 pantoprazole 40 mg tablet,delayed release (DR/EC) 40 mg PO QAM RF: 0 Metamucil 3.4 gram/5.4 gram Powder 1 tbsp PO QAM RF: 0 Probiotic Blend 2 billion cell-50 mg Capsule 1 cap PO QAM RF: 0 Discontinued doxycycline hyclate 100 mg capsule 100 mg PO BID 7 Days Qty: 14 RF: 0 Discharge Orders: Discharge Order (Routine); Ordered 04/01/20 Ordered By: Cherelle Hernandez/Other Patient Handouts: ED Diet: Diabetes, Facts About Diabetes Admission Data Admit Date/Time: 03/29/20 00:50 Attending Provider: Naeem Escobar Admit Provider: Jonah Hartley Primary Care Provider: Idris Moreno III Other Providers: Jonah Hartley ; Андрей Alba ; Maximiliano Spencer ; Yohan Clayton Other Interventions: Discharge Summary Assessment (RN) Last Done: 04/01/20 13:32 Coding Level of Care Code D/C Day Management >30 mins Diagnoses Abscess of right thigh L02.415 Diabetes mellitus type 2, insulin dependent E11.9; Z79.4 CAD (coronary artery disease) I25.10 Associated angina: without angina Coronary Disease-Associated Artery/Lesion type: council artery [place] vs. transplanted heart: council heart Chronic diastolic CHF (congestive heart failure) I50.32 Hypertension I10 Cardiomyopathy, nonischemic I42.8 Dyslipidemia E78.5 Hypokalemia E87.6 DVT prophylaxis Z29.9
[2020-04-01] MEDS ORDERED: BUMETANIDE 1 MG TAB PO ONE (11:23)
== END 2020-04-01 15:40 | disposition home or self-care (01) | DRG 580 ==
LOC: ED 20:54 → SUATTDRO 03-29 00:50 → 3W 03-29 00:50

== ENCOUNTER 2020-12-14 15:02 | Inpatient (IN) ==
[2020-12-14] MEDS ORDERED: cefTRIAXone SODIUM 1,000 MG/50 ML BAG IV STA (16:58)
--- NOTE | 2020-12-14 17:16 | Emergency Department Note ---
Impression & Plan Cellulitis of foot, right, Puncture wound of foot, right, Acute hyperglycemia ED Provider Note NAME: MAIKEL NUR AGE: 50 SEX: M : 1970 ARRIVES VIA: Walk-In INFORMANT: Patient, ED PROVIDER(S): Aldair Burden DO CHIEF COMPLAINT: Right foot swelling HPI: The patient is a 50-year-old male who presented to the emergency department for an evaluation of infection in his right foot. The patient started noticing swelling and redness of his right lower extremity over the course of the last week. He had a family member look at the area today and it was noticed that he had a thumbtack in the heel. There has been no drainage. The patient denies having any fever. He has a history of neuropathy. The patient denies having any pain but he normally does not have pain in the leg. He denies having any chest pain or difficulty breathing. He currently has been compliant with all his outpatient medication regimen. He denies having any thigh pain or groin pain. ROS: See above HPI for pertinent positives & negatives. A total of 10 systems reviewed and were otherwise negative. PAST MEDICAL HISTORY: See Below PAST SURGICAL HISTORY: See Below FAMILY HISTORY: See Below SOCIAL HISTORY: See Below HOME MEDICATIONS: See Below ALLERGIES: See Below VITALS: See Below PHYSICAL EXAMINATION: GENERAL: Patient is awake alert in no acute distress patient is resting comfortably and showing no signs of anxiety EYES: The conjunctivae are clear. The pupils are round and reactive. EARS, NOSE, MOUTH AND THROAT: The nose is without any evidence of any deformity. NECK: The neck is nontender and supple. RESPIRATORY: Normal respiratory effort is noted there is no evidence of wheezing rhonchi or rales CARDIOVASCULAR: Regular rate and rhythm noted there no murmurs rubs or gallops normal S1 normal S2. GASTROINTESTINAL: The abdomen is soft. Abdomen is nontender. MUSCULOSKELETAL/EXTREMITIES: There is no evidence of gross deformity full range of motion is noted in the hips and shoulders. SKIN: There is significant erythema and swelling of the right leg into the right foot. Skin is warm. Pulses are symmetric in both feet. There is an area on the right heel where the puncture wound is still noted. No drainage was noted. NEUROLOGIC: Patient is awake alert and oriented x3. MEDICAL DECISION MAKING: The patient is a 50-year-old male who has a history of diabetes and lower extremity neuropathy who presented to the emergency department for an evaluation of redness on the foot. The patient started having redness and swelling on his right foot. When his family member evaluated his foot they noticed there was a thumbtack embedded in the right heel. The thumbtack was removed. The patient was found to have signs of cellulitis with elevated inflammatory markers and an x-ray which appears to be consistent with gas in the subcutaneous tissue. He w as treated with IV antibiotics in the emergency department. He was reevaluated multiple times. I discussed his case with the on-call [facility] hospitalist. They have agreed to evaluate the patient in the emergency department for further management and disposition. Triage Nursing notes reviewed. Prior medical records reviewed Vital Signs: reviewed and remarkable for no significant abnormalities Differential diagnosis: Cellulitis, abscess, MRSA infection, DVT, necrotizing fasciitis, dermatitis, drug eruption, allergic reaction, as well as other pathologies. ER treatment provided: See below Diagnostics interpreted by me: ECG: none Laboratory studies: As stated above and show below. Imaging studies: See below Consultation(s): I discussed this case with Dr. Willard who is on-call for the [facility]. She has agreed to evaluate the patient in the emergency department for further management and disposition. Past Med/Surg History Medical History CAD (coronary artery disease) Cardiomyopathy, nonischemic CHF (congestive heart failure) Chronic back pain CKD (chronic kidney disease) Diabetes Diabetic gastroparesis Diabetic peripheral neuropathy GERD (gastroesophageal reflux disease) History of anesthesia reaction woke up during last colonoscopy 2017 HLD (hyperlipidemia) HTN (hypertension) Hx MRSA infection Iron deficiency anemia Morbid obesity with BMI of 50.0-59.9, adult Myocardial infarction "silent" between the time frame of [id number] ??--follows with [facility] Non-ischemic cardiomyopathy Renal agenesis, 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 Family History Family/Other Colon cancer Father Prostate cancer Diabetes Hypertension Brother Diabetes Mother Diabetes Grandfather (Paternal) Family hx of colon cancer Other No family history of adverse response to anesthesia No significant family history Social History Smoking Status: Never smoker Second Hand Exposure: No; Hx Alcohol Use: Yes Alcohol type: beer Hx Substance Use: No Preferred Language: Latvian Communication Ability: Effective Visual Impairment: Limited Hearing Ability: Normal [place] Required: No Beliefs That Will Affect Care: None marital status: Single Current Living Situation: Parent current occupational status: employed Feels Safe at Home: Yes during the past year weight has: remained stable Assistive Devices: Cane and Glasses Allergies Allergies Allergy/AdvReac Type Severity Reaction Status Date / Time No Known Allergies Allergy Verified 12/14/20 17:48 Home Meds Home Medications Medication Instructions Recorded Confirmed aspirin 81 mg PO QAM 04/03/18 12/14/20 ascorbate calcium (vitamin C) 500 500 mg PO QAM 12/25/19 12/14/20 mg tablet Metamucil 1 tbsp PO QAM 01/31/20 12/14/20 Probiotic Blend 1 cap PO QAM 01/31/20 12/14/20 atorvastatin 20 mg PO DAILY 12/14/20 12/14/20 bumetanide 2 mg PO DAILY 12/14/20 12/14/20 Previous Rx's Medication Instructions Recorded carvedilol 6.25 mg tablet 6.25 mg PO BID #180 tab 01/16/20 metolazone 5 mg tablet 5 mg PO DAILY PRN #30 tab 03/13/20 pantoprazole 40 mg tablet,delayed 40 mg PO QAM #90 tab 05/17/20 release blood sugar diagnostic #125 ea 08/21/20 insulin lispro 100 unit/mL 10 unit SUBCUT TID #15 ml 08/23/20 subcutaneous half-unit pen lisinopril 5 mg tablet 5 mg PO DAILY #30 tab 10/16/20 tramadol 50 mg tablet 50 mg PO BID PRN #60 tab 10/31/20 pen needle, diabetic 32 gauge x #400 ea 11/01/2032" insulin glargine 100 unit/mL (3 60 unit SUBCUT QAM #15 ml 12/10/20 mL) subcutaneous pen Results & Data (ED) Vital Signs Vital Signs - 24 hr 12/14/20 15:16 12/14/20 17:20 12/14/20 17:28 Temperature 37.0 C Temperature Source Temporal Artery Scan Pulse Rate 111 H Pulse Rate [Finger] 95 H 102 H Respiratory Rate 20 16 20 Respiratory Effort / Characteristics Non-Labored Spontaneous Non-Labored Spontaneous Respiratory Depth Normal Normal Respiratory Pattern Regular Blood Pressure 143/75 H Blood Pressure [Right Arm] 158/85 H 158/85 H Blood Pressure Mean 97 Blood Pressure Mean [Right Arm] 109 109 Pulse Oximetry 96 96 91 Oxygen Delivery Method Room Air Room Air Sepsis Recent Fever Within 48 Hours No Sepsis New/Unexplained Change in Mental Status No Sepsis Action Taken by Nursing No Action Required Home Medications Current Medication List: was personally reviewed by me Laboratory Data Attestation: I reviewed the patient's lab results. Result diagrams: 12/14/20 16:58 12/14/20 17:14 Lab Results 12/14/20 12/14/20 12/14/20 Range/Units 16:58 17:14 17:14 WBC 12.88 H (4.8-10.8) K/uL RBC 4.89 (4.7-6.1) M/uL Hgb 14.1 (14.0-18.0) g/dL Hct 41.3 L (42-52) % MCV 84.5 (80-100) fL MCH 28.8 (25-34) pg MCHC 34.1 (32-36) g/dL RDW Std Deviation 39.5 (36.4-46.3) fL RDW Coeff of Soled[place] 13.0 (11.5-14.5) % Plt Count 194 (130-400) K/uL MPV 10.0 (7.4-10.4) fL Immature Gran % (Auto) 0.2 % Neut % (Auto) 87.6 % Lymph % (Auto) 6.3 % [place] % (Auto) 5.7 % Eos % (Auto) 0.1 % Baso % (Auto) 0.1 % Neut # (Auto) 11.28 H (1.4-6.5) K/uL Lymph # (Auto) 0.81 L (1.2-3.4) K/uL [place] # (Auto) 0.74 H (0.11-0.59) K/uL Eos # (Auto) 0.01 (0-0.5) K/uL Baso # (Auto) 0.01 (0-0.2) K/uL Immature Gran # (Auto) 0.03 H (0.00-0.02) K/uL ESR 121 H (0-20) mm/hr Sodium 126 L (136-145) mmol/L Potassium 4.1 (3.5-5.1) mmol/L Chloride 86 L (98-107) mmol/L Carbon Dioxide 31 (21-32) mmol/L Anion Gap 9.0 (3-11) BUN 33 H (7-18) mg/dl Creatinine 1.87 H (0.6-1.4) mg/dl Est Cr Clr Drug Dosing Not Reportable Est GFR ( Amer) 47.5 ml/min Est GFR (Non-Af Amer) 41.0 ml/min BUN/Creatinine Ratio 17.7 (10-20) Glucose 650 H* (70-99) mg/dl Calcium 9.4 (8.5-10.1) mg/dl Magnesium (1.8-2.4) mg/dl Total Bilirubin 0.6 (0.2-1) mg/dl AST 5 L (15-37) U/L ALT 15 (12-78) U/L Alkaline Phosphatase 121 H (45-117) U/L Total Creatine Kinase (39-308) U/L C-Reactive Protein 16.10 H (0-0.29) mg/dl Total Protein 8.2 (6.4-8.2) gm/dl Albumin 2.9 L (3.4-5.0) gm/dl Globulin 5.3 H (2.5-4.0) gm/dl Albumin/Globulin Ratio 0.6 L (0.9-2) Beta-Hydroxybutyric Acd 8.56 H (0.2-2.81) mg/dl Procalcitonin (0-0.5) ng/ml COVID-19 Eval Order SARS-CoV-2 (PCR) (Negative) 12/14/20 12/14/20 12/14/20 Range/Units 17:14 17:14 18:45 WBC (4.8-10.8) K/uL RBC (4.7-6.1) M/uL Hgb (14.0-18.0) g/dL Hct (42-52) % MCV (80-100) fL MCH (25-34) pg MCHC (32-36) g/dL RDW Std Deviation (36.4-46.3) fL RDW Coeff of Soledad (11.5-14.5) % Plt Count (130-400) K/uL MPV (7.4-10.4) fL Immature Gran % (Auto) % Neut % (Auto) % Lymph % (Auto) % [place] % (Auto) % Eos % (Auto) % Baso % (Auto) % Neut # (Auto) (1.4-6.5) K/uL Lymph # (Auto) (1.2-3.4) K/uL [place] # (Auto) (0.11-0.59) K/uL Eos # (Auto) (0-0.5) K/uL Baso # (Auto) (0-0.2) K/uL Immature Gran # (Auto) (0.00-0.02) K/uL ESR (0-20) mm/hr Sodium (136-145) mmol/L Potassium (3.5-5.1) mmol/L Chloride (98-107) mmol/L Carbon Dioxide (21-32) mmol/L Anion Gap (3-11) BUN (7-18) mg/dl Creatinine (0.6-1.4) mg/dl Est Cr Clr Drug Dosing Est GFR ( Amer) ml/min Est GFR (Non-Af Amer) ml/min BUN/Creatinine Ratio (10-20) Glucose (70-99) mg/dl Calcium (8.5-10.1) mg/dl Magnesium 1.9 (1.8-2.4) mg/dl Total Bilirubin (0.2-1) mg/dl AST (15-37) U/L ALT (12-78) U/L Alkaline Phosphatase (45-117) U/L Total Creatine Kinase 68 (39-308) U/L C-Reactive Protein (0-0.29) mg/dl Total Protein (6.4-8.2) gm/dl Albumin (3.4-5.0) gm/dl Globulin (2.5-4.0) gm/dl Albumin/Globulin Ratio (0.9-2) Beta-Hydroxybutyric Acd (0.2-2.81) mg/dl Procalcitonin 0.98 H (0-0.5) ng/ml COVID-19 Eval Order Covid19 at [facility] SARS-CoV-2 (PCR) (Negative) 12/14/20 Range/Units 18:45 WBC (4.8-10.8) K/uL RBC (4.7-6.1) M/uL Hgb (14.0-18.0) g/dL Hct (42-52) % MCV (80-100) fL MCH (25-34) pg MCHC (32-36) g/dL RDW Std Deviation (36.4-46.3) fL RDW Coeff of Soledad (11.5-14.5) % Plt Count (130-400) K/uL MPV (7.4-10.4) fL Immature Gran % (Auto) % Neut % (Auto) % Lymph % (Auto) % [place] % (Auto) % Eos % (Auto) % Baso % (Auto) % Neut # (Auto) (1.4-6.5) K/uL Lymph # (Auto) (1.2-3.4) K/uL [place] # (Auto) (0.11-0.59) K/uL Eos # (Auto) (0-0.5) K/uL Baso # (Auto) (0-0.2) K/uL Immature Gran # (Auto) (0.00-0.02) K/uL ESR (0-20) mm/hr Sodium (136-145) mmol/L Potassium (3.5-5.1) mmol/L Chloride (98-107) mmol/L Carbon Dioxide (21-32) mmol/L Anion Gap (3-11) BUN (7-18) mg/dl Creatinine (0.6-1.4) mg/dl Est Cr Clr Drug Dosing Est GFR ( Amer) ml/min Est GFR (Non-Af Amer) ml/min BUN/Creatinine Ratio (10-20) Glucose (70-99) mg/dl Calcium (8.5-10.1) mg/dl Magnesium (1.8-2.4) mg/dl Total Bilirubin (0.2-1) mg/dl AST (15-37) U/L ALT (12-78) U/L Alkaline Phosphatase (45-117) U/L Total Creatine Kinase (39-308) U/L C-Reactive Protein (0-0.29) mg/dl Total Protein (6.4-8.2) gm/dl Albumin (3.4-5.0) gm/dl Globulin (2.5-4.0) gm/dl Albumin/Globulin Ratio (0.9-2) Beta-Hydroxybutyric Acd (0.2-2.81) mg/dl Procalcitonin (0-0.5) ng/ml COVID-19 Eval Order SARS-CoV-2 (PCR) NEGATIVE (Negative) Administered Medications Carvedilol (Carvedilol 6.25 Mg Tab) 6.25 mg PO BID STEVE Stop: 01/13/21 21:10 Last Admin: 12/14/20 22:00 Dose: 6.25 mg Documented by: [id number] Insulin Aspart (Insulin Aspart 100 Units/Ml 3 Ml Pen) 0 units SC ACHS STEVE Stop: 01/13/21 21:44 Last Admin: 12/14/20 22:55 Dose: 37 units Documented by: [id number] Cosigned by: [id number] Discontinued Medications Ceftriaxone Sodium (Rocephin) 1,000 mg in 50 mls @ 100 mls/hr IV NOW STA Stop: 12/14/20 17:27 Last Infusion: 12/14/20 17:35 Dose: 0 mls/hr Documented by: [id number] Admin: 12/14/20 17:20 Dose: 100 mls/hr Documented by: [id number] Vancomycin HCl 2,750 mg/ (Sodium Chloride) 555 mls @ 200 mls/hr IV NOW ONE Stop: 12/14/20 20:53 Last Infusion: 12/14/20 23:12 Dose: 0 mls/hr Documented by: [id number] Admin: 12/14/20 19:57 Dose: 200 mls/hr Documented by: [id number] Metronidazole (Flagyl) 500 mg in 100 mls @ 100 mls/hr IV NOW STA Stop: 12/14/20 19:06 Last Infusion: 12/14/20 19:30 Dose: 0 mls/hr Documented by: [id number] Admin: 12/14/20 18:30 Dose: 100 mls/hr Documented by: [id number] Sodium Chloride (Nss 1000ml) 1,000 mls @ 999 mls/hr IV .Q1H1M ONE Stop: 12/14/20 19:39 Last Infusion: 12/14/20 20:05 Dose: 0 mls/hr Documented by: [id number] Admin: 12/14/20 19:04 Dose: 999 mls/hr Documented by: [id number] Sodium Chloride (Nss 1000ml) 1,000 mls @ 999 mls/hr IV .Q1H1M ONE Stop: 12/14/20 20:57 Last Infusion: 12/14/20 21:00 Dose: 0 mls/hr Documented by: [id number] Admin: 12/14/20 19:58 Dose: 999 mls/hr Documented by: [id number] Bumetanide 1 mg/ Syringe 4 mls @ 4 mls/min IV ONE ONE Stop: 12/14/20 21:31 Last Admin: 12/14/20 22:01 Dose: 4 mls/min Documented by: [id number] Piperacillin Sod/Tazobactam (Sod 4.5 gm/ Dextrose) 120 mls @ 240 mls/hr IV ONE ONE; Protocol Stop: 12/14/20 22:14 Last Infusion: 12/14/20 22:40 Dose: 0 mls/hr Documented by: [id number] Admin: 12/14/20 22:04 Dose: 240 mls/hr Documented by: [id number] Insulin Human Regular 10 units (/ Syringe) 10 mls @ 10 mls/min IV NOW ONE Stop: 12/14/20 21:46 Last Admin: 12/14/20 22:01 Dose: 10 mls/min Documented by: [id number] Cosigned by: [id number] Insulin Glargine (Insulin Glargine Solostar 100 Units/Ml 3 Ml Pen) 40 units SC ONE ONE Stop: 12/14/20 23:31 Last Admin: 12/14/20 23:30 Dose: 40 units Documented by: [id number] Cosigned by: [id number] Insulin Human Regular (Novolin-R Insulin Per Unit Charge) 10 units IV NOW STA Stop: 12/14/20 18:40 Last Admin: 12/14/20 19:04 Dose: 10 units Documented by: [id number] Cosigned by: [id number] Imaging Data Radiologist's Impression: Foot X-Ray 12/14/20 16:58 RIGHT FOOT 3 VIEWS HISTORY: Right foot swelling. infection COMPARISON: None. FINDINGS: There is no fracture or dislocation. No bony destruction to suggest an osteomyelitis. There is diffuse soft tissue swelling. There are large plantar and posterior calcaneal spurs. Vascular calcifications are noted. The Lisfranc joint is intact. There is a 3 cm focal area of soft tissue gas along the plantar surface of the heel. This is best seen on the lateral view. No radiopaque foreign bodies. IMPRESSION: 1. A 3 cm focal area of soft tissue gas at the plantar surface of the heel. This is concerning for infection secondary to gas-forming organism or possibly a skin laceration/ulceration. Have 2. No underlying bony abnormality to suggest osteomyelitis. 3. Diffuse soft tissue swelling within the right foot ACT 112: Negative or not required by law. Electronically signed by: Sebastián Moon M.D. 12/14/2020 6:03 PM Discharge Plan Visit Data Chief Complaint: Infection, Wound Stated Complaint: INFECTED RIGHT FOOT ED Provider: Aldair Burden Discharge Problem: Cellulitis of foot, right, Puncture wound of foot, right, Acute hyperglycemia Patient Disposition: Admitted As Inpatient Condition: Good Discharge Instructions Interventions: ED Discharge Assessment Last Done: 12/14/20 20:48 Discharge Problem: Puncture wound of foot, right Qualifiers: Encounter type: initial encounter Qualified Code(s): S91.331A - Puncture wound without foreign body, right foot, initial encounter
[2020-12-14 17:32] LABS: Basophils # (auto) 0.01 K/uL (0-0.2); Basophils % (auto) 0.1 %; Eosinophils # (auto) 0.01 K/uL (0-0.5); Eosinophils % (auto) 0.1 %; Hematocrit (blood only) 41.3 % (42-52); Hemoglobin 14.1 g/dL (14.0-18.0); Immature Granulocytes # (auto) 0.03 K/uL (0.00-0.02); Immature Granulocytes % (auto) 0.2 %; Lymphocytes # (auto) 0.81 K/uL (1.2-3.4); Lymphocytes % (auto) 6.3 %; Mean Corpuscular Hemoglobin 28.8 pg (25-34); Mean Corpuscular Hgb Conc 34.1 g/dL (32-36); Mean Corpuscular Volume 84.5 fL (80-100); Monocytes # (auto) 0.74 K/uL (0.11-0.59); Monocytes % (auto) 5.7 %; Neutrophils # (auto) 11.28 K/uL (1.4-6.5); Neutrophils % (auto) 87.6 %; Platelet Count 194 K/uL (130-400); RDW Standard Deviation 39.5 fL (36.4-46.3); Red Blood Count 4.89 M/uL (4.7-6.1); White Blood Count 12.88 K/uL (4.8-10.8)
[2020-12-14 17:50] LABS: Alanine Aminotransferase 15 U/L (12-78); Albumin Level 2.9 gm/dl (3.4-5.0); Aspartate Aminotransferase 5 U/L (15-37); BUN Creatinine Ratio 17.7 (10-20); Blood Urea Nitrogen 33 mg/dl (7-18); Calcium 9.4 mg/dl (8.5-10.1); Carbon Dioxide 31 mmol/L (21-32); Chloride 86 mmol/L (98-107); Est GFR (African American) 47.5 ml/min; Potassium 4.1 mmol/L (3.5-5.1); Sodium 126 mmol/L (136-145)
[2020-12-14 17:53] LABS: Albumin Globulin Ratio 0.6 (0.9-2); Alkaline Phosphatase 121 U/L (45-117); Bilirubin,Total 0.6 mg/dl (0.2-1); Globulin 5.3 gm/dl (2.5-4.0); Total Protein 8.2 gm/dl (6.4-8.2)
--- NOTE | 2020-12-14 18:04 | XRay Report ---
RIGHT FOOT 3 VIEWS HISTORY: Right foot swelling. infection COMPARISON: None. FINDINGS: There is no fracture or dislocation. No bony destruction to suggest an osteomyelitis. There is diffuse soft tissue swelling. There are large plantar and posterior calcaneal spurs. Vascular valerie cifications are noted. The Lisfranc joint is intact. There is a 3 cm focal area of soft tissue gas al samantha the plantar surface of the heel. This is best seen on the lateral view. No radiopaque foreign bod ies. IMPRESSION: 1. A 3 cm focal area of soft tissue gas at the plantar surface of the heel. This is concerning for in fection secondary to gas-forming organism or possibly a skin laceration/ulceration. Have 2. No underlying bony abnormality to suggest osteomyelitis. 3. Diffuse soft tissue swelling within the right foot ACT 112: Negative or not required by law. Electronically signed by: Sebastián Moon M.D. 12/14/2020 6:03 PM
[2020-12-14] MEDS ORDERED: metroNIDAZOLE 500 MG/100 ML BAG IV STA (18:07)
[2020-12-14] MEDS ORDERED: VANCOMYCIN HCL 2,750 MG in SODIUM CHLORIDE 0.9% 500 ML IV ONE (18:07)
[2020-12-14] MEDS ORDERED: VANCOMYCIN CONSULT ACTIVE PRN (18:07)
[2020-12-14 18:26] LABS: Glucose 650 mg/dl (70-99)
[2020-12-14 18:37] LABS: Beta-Hydroxybutyrate 8.56 mg/dl (0.2-2.81)
[2020-12-14] MEDS ORDERED: SODIUM CHLORIDE 0.9% 1000ML 1,000 ML IV ONE ×2 (18:39→19:57)
[2020-12-14] MEDS ORDERED: NovoLIN-R INSULIN PER UNIT CHARGE IV STA (18:39)
[2020-12-14] MEDS ORDERED: CARBOHYDRATES FOR HYPOGLYCEMIA PO PRN (21:11)
[2020-12-14] MEDS ORDERED: GLUCOSE 10 TABS/TUBE PO PRN (21:11)
[2020-12-14] MEDS ORDERED: GLUCAGON FOR INJ 1 MG VIAL SQ PRN (21:11)
[2020-12-14] MEDS ORDERED: DEXTROSE 50% 50 ML SYRINGE IV PRN (21:11)
[2020-12-14] MEDS ORDERED: PIPERACILL/TAZOBAC CONSULT ACTIVE PRN (21:11)
[2020-12-14] MEDS ORDERED: DOCUSATE SODIUM 100 MG CAP PO PRN (21:11)
[2020-12-14] MEDS ORDERED: ONDANSETRON INJ 2 MG/ML 2 ML VIAL IV PRN (21:11)
[2020-12-14] MEDS ORDERED: GLUCOSE 40% GEL 15 GM TUBE PO PRN (21:11)
[2020-12-14] MEDS ORDERED: PHARMACY GLYCEMIC MGMT CONSULT PRN (21:25)
[2020-12-14] MEDS ORDERED: BUMETANIDE 1 MG in SYRINGE 0 ML IV ONE (21:30)
[2020-12-14] MEDS ORDERED: PIPERACILLIN/TAZOBACTAM 4.5 GM in DEXTROSE 5% 100 ML IV ONE (21:45)
[2020-12-14] MEDS ORDERED: INSULIN HUMAN REGULAR PER UNIT 10 UNITS in SYRINGE 9.9 ML IV ONE (21:45)
[2020-12-14 21:48] LABS: Magnesium 1.9 mg/dl (1.8-2.4)
--- NOTE | 2020-12-14 21:58 | History & Physical Report ---
Date of Service December 14, 2020 Assessment & Plan (1) Cellulitis of foot, right: 50yo male with poorly controlled DM, peripheral neuropathy presenting with swelling and pain of RLE following a puncture wound from a marisol thumb tack. Patient afebrile, HD stable, no evidence of systemic infection. X-ray of right foot with soft tissue gas corresponding to location of injury. No clinical evidence of necrotizing fasciitis or ascending infection. No evidence of bony involvement noted on X-ray. -Admit to medical with telemetry -Check RLE doppler - swelling and warmth of right calf -Daptomycin and Zosyn -Monitor area of redness -General Surgery consultation appreciated re: gas present in wound -Will administer Tetanus shot -Wound care PRN -Tylenol PRN fever/pain -Tramadol PRN pain Present on Admission?: Yes (2) Puncture wound of foot, right: As above -Wound care -Antibiotics -Tetanus shot Present on Admission?: Yes (3) Type 2 diabetes mellitus with neurological manifestations, uncontrolled: Patient with poorly controlled DM. Last A1C > 12. He reports not taking his medication regularly or checking his blood sugars lately. Markedly elevated BSG today at 650. No anion gap but BHB present at 8.56. Patient given 10u IV insulin in ER -Lantus 40u now -ISS - goal blood sugar 100 - 140 -Glycemic management consultation appreciated -Diabetes education Present on Admission?: Yes (4) Chronic kidney disease: BUN=33, Cr=1.87. -Monitor BUN, Cr, electrolytes and UOP -Avoid nephrotoxic agents -Renal dosing where needed Present on Admission?: Yes (5) Hypertension: Blood pressure stable -Continue Carvedilol and Lisinopril -Continue to monitor BP Present on Admission?: Yes (6) Dyslipidemia: Chronic -Statin on hold while on Daptomycin Present on Admission?: Yes (7) Chronic diastolic CHF (congestive heart failure): Patient appears mildly volume overloaded -Bumex 1mg IV x 1 -Monitor I/Os, weights -Continue home dose - Bumex 2mg po daily Present on Admission?: Yes (8) CAD (coronary artery disease): Patient denies chest pain -Continue ASA 81mg po daily -Continue Carvedilol 6.25mg po BID -Continue Lisinopril -Statin on hold while on Daptomycin Present on Admission?: Yes (9) GERD (gastroesophageal reflux disease): Chronic -Continue Protonix 40mg po q AM F/E/N - Bumex 1mg IV given, monitor electrolytes and replete as needed, CC/AHA diet as tolerated Ppx - Lovenox 40 q 12 given BMI of 49, continue Protonix Code - Full Dispo - Admit to medical with telemetry Present on Admission?: Yes Admission and Anticipated Discharge Date Admission Date: December 14, 2020 History of Present Illness Chief Complaint: Diabetic foot infection Primary Care Provider: Idris Moreno MD Juan Carlos Dutta is a 50yo male with poorly controlled DM with peripheral neuropathy, HTN, HLP, NICM and CAD presenting with infection of right foot. Patient has had progressive pain and swelling of the right foot over the last several days. Yesterday he developed worsening pain in the heel of the right foot as well as aching pain in ankle/knee and hip. He examined his foot and found that there was a marisol tack in his heel. He does not know exactly when he stepped on it. He is uncertain of the date of his last tetanus vaccination. He denies fever/chills/nausea/vomiting/diarrhea or constipation. Denies chest pain/cough/wheeze/SOB/edema/weight gain or orthopnea. He has had increased thirst and urination over the last several days. He has not been checking his blood sugar or taking any of his medications for the last several days. ER Course: Ceftriaxone, Insulin 10u IV, Flagyl, Vancomycin Allergies Allergy/AdvReac Type Severity Reaction Status Date / Time No Known Allergies Allergy Verified 12/14/20 17:48 Home Medications Medication Instructions Recorded Confirmed Type aspirin 81 mg PO QAM 04/03/18 12/14/20 History ascorbate calcium (vitamin C) 500 500 mg PO QAM 12/25/19 12/14/20 History mg tablet carvedilol 6.25 mg tablet 6.25 mg PO BID #180 tab 01/16/20 12/14/20 Rx Metamucil 1 tbsp PO QAM 01/31/20 12/14/20 History Probiotic Blend 1 cap PO QAM 01/31/20 12/14/20 History metolazone 5 mg tablet 5 mg PO DAILY PRN #30 tab 03/13/20 12/14/20 Rx pantoprazole 40 mg tablet,delayed 40 mg PO QAM #90 tab 05/17/20 12/14/20 Rx release blood sugar diagnostic #125 ea 08/21/20 09/25/20 Rx insulin lispro 100 unit/mL 10 unit SUBCUT TID #15 ml 08/23/20 12/14/20 Rx subcutaneous half-unit pen lisinopril 5 mg tablet 5 mg PO DAILY #30 tab 10/16/20 12/14/20 Rx tramadol 50 mg tablet 50 mg PO BID PRN #60 tab 10/31/20 12/14/20 Rx pen needle, diabetic 32 gauge x #400 ea 11/01/20 Rx /32" insulin glargine 100 unit/mL (3 60 unit SUBCUT QAM #15 ml 12/10/20 12/14/20 Rx mL) subcutaneous pen atorvastatin 20 mg PO DAILY 12/14/20 12/14/20 History bumetanide 2 mg PO DAILY 12/14/20 12/14/20 History Past Med/Surg History Medical History CAD (coronary artery disease) Cardiomyopathy, nonischemic CHF (congestive heart failure) Chronic back pain CKD (chronic kidney disease) Diabetes Diabetic gastroparesis Diabetic peripheral neuropathy GERD (gastroesophageal reflux disease) History of anesthesia reaction woke up during last colonoscopy 2017 HLD (hyperlipidemia) HTN (hypertension) Hx MRSA infection Iron deficiency anemia Morbid obesity with BMI of 50.0-59.9, adult Myocardial infarction "silent" between the time frame of 4460-7135 ??--follows with [facility] Non-ischemic cardiomyopathy Renal agenesis, 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 no stents Hx of colonoscopy Hx of hand surgery right hand d/t cellulitis issues ? 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 lives w/ mother and father current occupational status: employed Other Information That Helps Us Care for You: No Feels Safe at Home: Yes Safety Concerns: Feels Safe At This Time during the past year weight has: remained stable Assistive Devices: Cane and Glasses Assistive Devices Comment: Pts. personal cane at bedside Review of Systems Review of Systems: All systems reviewed & are unremarkable except as noted in HPI & below Physical Exam Physical Exam: General: obese male patient resting comfortably, poorly kempt, NAD, non-toxic in appearance, AA&O x 4 Skin: warm, dry HEENT: NC/AT, PERRL, EOMI, anicteric sclera, conjunctiva without injection, external ear normal to inspection and nontender, nares patent, moist mucus membranes, dentition intact, no oropharyngeal lesions, neck supple, trachea midline, no LAD, no thyromegaly, no JVD Heart: +S1/S2, regular, tachycardic, no m/r/g Lungs: equal air entry bilaterally, no rales/rhonchi/wheezes Abd: +BS, soft, NT/ND, no masses/organomegaly/ascites Ext: warm, 2+ pulses in UE/LE bilaterally, redness and edema of RLE to mid- barr, small opening on heel, no crepitus/bullae/lymphagitic streaking Neuro: nonfocal, patient AA&O x 4, speech intact, no facial droop, moving all extremities on command with equal strength 5/5 Results & Data Results & Data ([facility]) Vital Signs (Past 12 Hours) Vital Signs Temp Pulse Pulse Resp BP BP Pulse Ox 12/14/20 20:36 94 H 16 178/83 H 95 12/14/20 17:28 102 H 20 158/85 H 91 12/14/20 17:20 95 H 16 158/85 H 96 12/14/20 15:16 37.0 C 111 H 20 143/75 H 96 Laboratory Results Laboratory Results WBC 12.88 K/uL (4.8-10.8) H 12/14/20 16:58 RBC 4.89 M/uL (4.7-6.1) 12/14/20 16:58 Hgb 14.1 g/dL (14.0-18.0) 12/14/20 16:58 Hct 41.3 % (42-52) L 12/14/20 16:58 MCV 84.5 fL (80-100) 12/14/20 16:58 MCH 28.8 pg (25-34) 12/14/20 16:58 MCHC 34.1 g/dL (32-36) 12/14/20 16:58 RDW Std Deviation 39.5 fL (36.4-46.3) 12/14/20 16:58 RDW Coeff of [place] 13.0 % (11.5-14.5) 12/14/20 16:58 Plt Count 194 K/uL (130-400) 12/14/20 16:58 MPV 10.0 fL (7.4-10.4) 12/14/20 16:58 Immature Gran % (Auto) 0.2 % 12/14/20 16:58 Neut % (Auto) 87.6 % 12/14/20 16:58 Lymph % (Auto) 6.3 % 12/14/20 16:58 [place] % (Auto) 5.7 % 12/14/20 16:58 Eos % (Auto) 0.1 % 12/14/20 16:58 Baso % (Auto) 0.1 % 12/14/20 16:58 Neut # (Auto) 11.28 K/uL (1.4-6.5) H 12/14/20 16:58 Lymph # (Auto) 0.81 K/uL (1.2-3.4) L 12/14/20 16:58 [place] # (Auto) 0.74 K/uL (0.11-0.59) H 12/14/20 16:58 Eos # (Auto) 0.01 K/uL (0-0.5) 12/14/20 16:58 Baso # (Auto) 0.01 K/uL (0-0.2) 12/14/20 16:58 Immature Gran # (Auto) 0.03 K/uL (0.00-0.02) H 12/14/20 16:58 ESR 121 mm/hr (0-20) H 12/14/20 17:14 Sodium 126 mmol/L (136-145) L 12/14/20 17:14 Potassium 4.1 mmol/L (3.5-5.1) 12/14/20 17:14 Chloride 86 mmol/L (98-107) L 12/14/20 17:14 Carbon Dioxide 31 mmol/L (21-32) 12/14/20 17:14 Anion Gap 9.0 (3-11) 12/14/20 17:14 BUN 33 mg/dl (7-18) H 12/14/20 17:14 Creatinine 1.87 mg/dl (0.6-1.4) H 12/14/20 17:14 Est Cr Clr Drug Dosing Not Reportable 12/14/20 17:14 Est GFR ( Amer) 47.5 ml/min 12/14/20 17:14 Est GFR (Non-Af Amer) 41.0 ml/min 12/14/20 17:14 BUN/Creatinine Ratio 17.7 (10-20) 12/14/20 17:14 Glucose 650 mg/dl (70-99) H* 12/14/20 17:14 POC Glucose 193 mg/dl (70-99) H 12/15/20 01:31 Calcium 9.4 mg/dl (8.5-10.1) 12/14/20 17:14 Magnesium 1.9 mg/dl (1.8-2.4) 12/14/20 17:14 Total Bilirubin 0.6 mg/dl (0.2-1) 12/14/20 17:14 AST 5 U/L (15-37) L 12/14/20 17:14 ALT 15 U/L (12-78) 12/14/20 17:14 Alkaline Phosphatase 121 U/L (45-117) H 12/14/20 17:14 Total Creatine Kinase 68 U/L (39-308) 12/14/20 17:14 C-Reactive Protein 16.10 mg/dl (0-0.29) H 12/14/20 17:14 Total Protein 8.2 gm/dl (6.4-8.2) 12/14/20 17:14 Albumin 2.9 gm/dl (3.4-5.0) L 12/14/20 17:14 Globulin 5.3 gm/dl (2.5-4.0) H 12/14/20 17:14 Albumin/Globulin Ratio 0.6 (0.9-2) L 12/14/20 17:14 Beta-Hydroxybutyric Acd 8.56 mg/dl (0.2-2.81) H 12/14/20 17:14 Procalcitonin 0.98 ng/ml (0-0.5) H 12/14/20 17:14 COVID-19 Eval Order Covid19 at [facility] 12/14/20 18:45 SARS-CoV-2 (PCR) NEGATIVE (Negative) 12/14/20 18:45 Impressions Foot X-Ray 12/14/20 16:58 RIGHT FOOT 3 VIEWS HISTORY: Right foot swelling. infection COMPARISON: None. FINDINGS: There is no fracture or dislocation. No bony destruction to suggest an osteomyelitis. There is diffuse soft tissue swelling. There are large plantar and posterior calcaneal spurs. Vascular calcifications are noted. The Lisfranc joint is intact. There is a 3 cm focal area of soft tissue gas along the plantar surface of the heel. This is best seen on the lateral view. No radiopaque foreign bodies. IMPRESSION: 1. A 3 cm focal area of soft tissue gas at the plantar surface of the heel. This is concerning for infection secondary to gas-forming organism or possibly a skin laceration/ulceration. Have 2. No underlying bony abnormality to suggest osteomyelitis. 3. Diffuse soft tissue swelling within the right foot ACT 112: Negative or not required by law. Electronically signed by: Sebastián Moon M.D. 12/14/2020 6:03 PM PG Care Time/CCT Total # of Minutes Spent Total Time Spent with Patient: Total time spent is greater than 50% in coordination of care (as documented) at patient's floor/unit and/or counseling patient: Coding Level of Care Code 50523 Initial Inpt Care Lvl 3 Diagnoses Cellulitis of foot, right L03.115 Puncture wound of foot, right S91.331A Encounter type: initial encounter Type 2 diabetes mellitus with neurological manifestations, uncontrolled E11.49; E11.65 Chronic kidney disease N18.9 Chronic kidney disease stage: unspecified stage Hypertension I10 Hypertension type: essential hypertension Dyslipidemia E78.5 Chronic diastolic CHF (congestive heart failure) I50.32 CAD (coronary artery disease) I25.10 Coronary Disease-Associated Artery/Lesion type: [place] artery [place] vs. transplanted heart: [place] heart Associated angina: without angina GERD (gastroesophageal reflux disease) K21.9 Esophagitis presence: esophagitis presence not specified (1) Puncture wound of foot, right Encounter type: initial encounter Qualified Code(s): S91.331A - Puncture wound without foreign body, right foot, initial encounter (2) Chronic kidney disease Chronic kidney disease stage: unspecified stage Qualified Code(s): N18.9 - Chronic kidney disease, unspecified (3) Hypertension Hypertension type: essential hypertension Qualified Code(s): I10 - Essential (primary) hypertension (4) CAD (coronary artery disease) Coronary Disease-Associated Artery/Lesion type: [place] artery [place] vs. transplanted heart: [place] heart Associated angina: without angina Qualified Code(s): I25.10 - Atherosclerotic heart disease of [place] coronary artery without angina pectoris (5) GERD (gastroesophageal reflux disease) Esophagitis presence: esophagitis presence not specified Qualified Code(s): K21.9 - Gastro-esophageal reflux disease without esophagitis
[2020-12-14] MEDS: carvediloL 6.25 MG TAB PO SCH (22:00)
[2020-12-14] MEDS ORDERED: INSULIN ASPART 100 UNITS/ML 3 ML PEN SC SCH (22:45)
[2020-12-14] MEDS: INSULIN ASPART 100 UNITS/ML 3 ML PEN SC SCH (22:55)
[2020-12-14] MEDS ORDERED: INSULIN GLARGINE SOLOSTAR 100 UNITS/ML 3 ML PEN SC ONE (23:30)
[2020-12-15] MEDS: INSULIN ASPART 100 UNITS/ML 3 ML PEN SC SCH ×6 (01:43→20:40)
[2020-12-15] MEDS ORDERED: Nursing to Pharmacy Communication SCH (03:00)
[2020-12-15] MEDS: PIPERACILLIN/TAZOBACTAM 4.5 GM in DEXTROSE 5% 100 ML IV SCH ×3 (03:13→19:45)
[2020-12-15] MEDS ORDERED: DAPTOmycin 550 MG in SYRINGE 0 ML IV SCH (04:00)
[2020-12-15 06:52] LABS: Basophils # (auto) 0.02 K/uL (0-0.2); Basophils % (auto) 0.2 %; Eosinophils # (auto) 0.08 K/uL (0-0.5); Eosinophils % (auto) 0.7 %; Hematocrit (blood only) 36.9 % (42-52); Hemoglobin 12.4 g/dL (14.0-18.0); Immature Granulocytes # (auto) 0.02 K/uL (0.00-0.02); Immature Granulocytes % (auto) 0.2 %; Lymphocytes # (auto) 0.99 K/uL (1.2-3.4); Lymphocytes % (auto) 9.1 %; Mean Corpuscular Hemoglobin 28.6 pg (25-34); Mean Corpuscular Hgb Conc 33.6 g/dL (32-36); Mean Platelet Volume 9.7 fL (7.4-10.4); Monocytes % (auto) 8.2 %; Neutrophils # (auto) 8.92 K/uL (1.4-6.5); Neutrophils % (auto) 81.6 %; Platelet Count 211 K/uL (130-400); RDW Standard Deviation 40.4 fL (36.4-46.3); Red Blood Count 4.34 M/uL (4.7-6.1); White Blood Count 10.93 K/uL (4.8-10.8)
[2020-12-15 07:02] LABS: Prothrombin Time 10.5 Seconds (9.0-12.0)
[2020-12-15 07:42] LABS: Albumin Level 2.4 gm/dl (3.4-5.0); BUN Creatinine Ratio 23.1 (10-20); Bilirubin Direct 0.1 mg/dl (0-0.2); Bilirubin,Total 0.5 mg/dl (0.2-1); Calcium 8.6 mg/dl (8.5-10.1); Creatinine Clr Calc Pharmacy 90.2 ml/min; Est GFR (African American) 68.6 ml/min; Est GFR (Non-African American) 59.2 ml/min; Potassium 3.6 mmol/L (3.5-5.1); Total Protein 6.7 gm/dl (6.4-8.2)
[2020-12-15] MEDS ORDERED: DIPHTHERIA/TETANUS/PERTUSSIS 0.5 ML SYR/VIAL IM ONE (08:00)
--- NOTE | 2020-12-15 08:19 | Hospitalist Progress Note ---
Date of Service December 15, 2020 Assessment & Plan (1) Cellulitis of foot, right: #Cellulitis of the right foot 50yo male with poorly controlled DM, peripheral neuropathy presenting with swelling and pain of RLE following a puncture wound from a marisol thumb tack. Patient afebrile, HD stable, no evidence of systemic infection. X-ray of right foot with soft tissue gas corresponding to location of injury. No clinical evidence of necrotizing fasciitis or ascending infection. No evidence of bony involvement noted on X-ray. Doppler ultrasound was negative. Given tetanus in the ER. -Daptomycin and Zosyn -Prior history of MRSA infection -Monitor for progression of erythema -Tylenol PRN fever/pain -Tramadol PRN pain -General Surgery consulted -Continue medical management with IV antibiotics -Repeat right foot x-ray -No plans for surgery at present -Wound care consulted #Puncture wound right foot As above -Wound care -Antibiotics -Tetanus shot #Type 2 diabetes mellitus with neurological manifestations uncontrolled Patient with poorly controlled DM. Last A1C > 12. He reports not taking his medication regularly or checking his blood sugars lately. Markedly elevated BSG today at 650. No anion gap but BHB present at 8.56. Patient given 10u IV insulin in ER -Glycemic management consultation appreciated -Diabetes education #Chronic kidney disease BUN=33, Cr=1.87. on admission, -Monitor BUN, Cr, electrolytes and UOP -cr:1.87->1.38 -Avoid nephrotoxic agents -Renal dosing where needed #Hypertension Blood pressure stable -Continue Carvedilol and Lisinopril -Continue to monitor BP #Dyslipidemia Chronic -Statin on hold while on Daptomycin #Chronic diastolic CHF Patient appears mildly volume overloaded, received extra IV 1 mg of Bumex in the ED with resolution of symptoms -Monitor I/Os, weights -Continue home dose - Bumex 2mg po daily #CAD Patient denies chest pain -Continue ASA 81mg po daily -Continue Carvedilol 6.25mg po BID -Continue Lisinopril -Statin on hold while on Daptomycin #GERD Chronic -Continue Protonix 40mg po q AM FENa: AHA diet/DM2 Code Status: Full code DVT PPX: Lovenox PT/OT: Not indicated at present Dispo: Med telemetry Peter Willard MD PGY 2, [facility] This chart was completed utilizing [employer] voice recognition software. Grammatical errors, random word insertions, pronoun errors, and in complete sentences are an occasional consequence of the system. Any questions or andrew rns about the content, text, or information contained within the body of this dictation should be addressed directly to the physician for clarification. (2) Puncture wound of foot, right: (3) Type 2 diabetes mellitus with neurological manifestations, uncontrolled: (4) Chronic kidney disease: (5) Hypertension: (6) Dyslipidemia: (7) Chronic diastolic CHF (congestive heart failure): (8) CAD (coronary artery disease): (9) GERD (gastroesophageal reflux disease): Admission and Anticipated Discharge Date Admission Date: December 14, 2020 Supervising Physician Co-Signing Physician Notes Resident Physician Supervision Note: I independently interviewed and examined the patient and verified the lynn history and physical, reviewed labs and image studies and agree with resident Dr. Peter Willard findings and care plan. Subjective Patient lying in bed this morning in no acute distress. Patient reports significant improvement in his symptoms since removal of the tach from his foot. Patient is tolerating his diet, voiding, stooling, reports no acute events overnight. All questions were answered, acute concerns relate to duration of antibiotics. Physical Exam Physical Exam: General: Lying in bed in no acute distress Cardiac: Regular rate and rhythm I did not appreciate significant murmurs rubs or gallops, normal S1, normal S2, negative calf tenderness, 1+ pedal edema bilaterally Respiratory: Clear to auscultation bilaterally with symmetrical chest expansion I did not appreciate any wheezes rales or rhonchi GI: Distended, soft, nontender, bowel sounds present MSK: Moves all extremities Skin: Right lower extremity wound is bandaged, no significant erythema or pus appreciated Neuro: Alert and oriented x4 Psych: Calm and cooperative with the interview Results & Data Results & Data ([facility]) Vital Signs (Past 12 Hours) Vital Signs Temp Pulse Pulse Resp BP BP Pulse Ox 12/15/20 07:57 36.7 C 84 16 117/72 94 12/15/20 07:40 86 12/15/20 03:16 36.4 C L 89 16 101/65 93 12/14/20 22:53 37.2 C 93 H 18 115/74 91 12/14/20 22:20 96 H 12/14/20 22:00 37.5 C 97 H 18 153/82 H 93 12/14/20 21:11 37.5 C 97 H 18 153/82 H 93 12/14/20 21:10 92 H 12/14/20 20:36 94 H 16 178/83 H 95 Laboratory Results 12/15/20 12/15/20 12/15/20 Range/Units 07:35 06:35 06:35 WBC (4.8-10.8) K/uL RBC (4.7-6.1) M/uL Hgb (14.0-18.0) g/dL Hct (42-52) % MCV (80-100) fL MCH (25-34) pg MCHC (32-36) g/dL RDW Std Deviation (36.4-46.3) fL RDW Coeff of Soledad (11.5-14.5) % Plt Count (130-400) K/uL MPV (7.4-10.4) fL Immature Gran % (Auto) % Neut % (Auto) % Lymph % (Auto) % [place] % (Auto) % Eos % (Auto) % Baso % (Auto) % Neut # (Auto) (1.4-6.5) K/uL Lymph # (Auto) (1.2-3.4) K/uL [place] # (Auto) (0.11-0.59) K/uL Eos # (Auto) (0-0.5) K/uL Baso # (Auto) (0-0.2) K/uL Immature Gran # (Auto) (0.00-0.02) K/uL ESR (0-20) mm/hr PT (9.0-12.0) Seconds INR (0.9-1.1) Sodium 133 L D (136-145) mmol/L Potassium 3.6 (3.5-5.1) mmol/L Chloride 96 L (98-107) mmol/L Carbon Dioxide 31 (21-32) mmol/L Anion Gap 7.0 (3-11) BUN 32 H (7-18) mg/dl Creatinine 1.38 D (0.6-1.4) mg/dl Est Cr Clr Drug Dosing 90.2 Est GFR ( Amer) 68.6 ml/min Est GFR (Non-Af Amer) 59.2 ml/min BUN/Creatinine Ratio 23.1 H (10-20) Glucose 222 H (70-99) mg/dl POC Glucose 271 H (70-99) mg/dl Estimat Average Glucose Pending Hemoglobin A1c Pending Calcium 8.6 (8.5-10.1) mg/dl Magnesium (1.8-2.4) mg/dl Total Bilirubin 0.5 (0.2-1) mg/dl Direct Bilirubin 0.1 (0-0.2) mg/dl AST 9 L (15-37) U/L ALT 11 L (12-78) U/L Alkaline Phosphatase 102 (45-117) U/L Total Creatine Kinase (39-308) U/L C-Reactive Protein (0-0.29) mg/dl Total Protein 6.7 (6.4-8.2) gm/dl Albumin 2.4 L (3.4-5.0) gm/dl Globulin (2.5-4.0) gm/dl Albumin/Globulin Ratio (0.9-2) Beta-Hydroxybutyric Acd (0.2-2.81) mg/dl Procalcitonin (0-0.5) ng/ml COVID-19 Eval Order SARS-CoV-2 (PCR) (Negative) 12/15/20 12/15/20 12/15/20 Range/Units 06:35 06:35 04:29 WBC 10.93 H (4.8-10.8) K/uL RBC 4.34 L (4.7-6.1) M/uL Hgb 12.4 L (14.0-18.0) g/dL Hct 36.9 L (42-52) % MCV 85.0 (80-100) fL MCH 28.6 (25-34) pg MCHC 33.6 (32-36) g/dL RDW Std Deviation 40.4 (36.4-46.3) fL RDW Coeff of Soledad 13.0 (11.5-14.5) % Plt Count 211 (130-400) K/uL MPV 9.7 (7.4-10.4) fL Immature Gran % (Auto) 0.2 % Neut % (Auto) 81.6 % Lymph % (Auto) 9.1 % [place] % (Auto) 8.2 % Eos % (Auto) 0.7 % Baso % (Auto) 0.2 % Neut # (Auto) 8.92 H (1.4-6.5) K/uL Lymph # (Auto) 0.99 L (1.2-3.4) K/uL [place] # (Auto) 0.90 H (0.11-0.59) K/uL Eos # (Auto) 0.08 (0-0.5) K/uL Baso # (Auto) 0.02 (0-0.2) K/uL Immature Gran # (Auto) 0.02 (0.00-0.02) K/uL ESR (0-20) mm/hr PT 10.5 (9.0-12.0) Seconds INR 1.0 (0.9-1.1) Sodium (136-145) mmol/L Potassium (3.5-5.1) mmol/L Chloride (98-107) mmol/L Carbon Dioxide (21-32) mmol/L Anion Gap (3-11) BUN (7-18) mg/dl Creatinine (0.6-1.4) mg/dl Est Cr Clr Drug Dosing Est GFR ( Amer) ml/min Est GFR (Non-Af Amer) ml/min BUN/Creatinine Ratio (10-20) Glucose (70-99) mg/dl POC Glucose 208 H (70-99) mg/dl Estimat Average Glucose Hemoglobin A1c Calcium (8.5-10.1) mg/dl Magnesium (1.8-2.4) mg/dl Total Bilirubin (0.2-1) mg/dl Direct Bilirubin (0-0.2) mg/dl AST (15-37) U/L ALT (12-78) U/L Alkaline Phosphatase (45-117) U/L Total Creatine Kinase (39-308) U/L C-Reactive Protein (0-0.29) mg/dl Total Protein (6.4-8.2) gm/dl Albumin (3.4-5.0) gm/dl Globulin (2.5-4.0) gm/dl Albumin/Globulin Ratio (0.9-2) Beta-Hydroxybutyric Acd (0.2-2.81) mg/dl Procalcitonin (0-0.5) ng/ml COVID-19 Eval Order SARS-CoV-2 (PCR) (Negative) 06/12/3012/14/20 12/14/20 Range/Units 01:31 22:58 21:05 WBC (4.8-10.8) K/uL RBC (4.7-6.1) M/uL Hgb (14.0-18.0) g/dL Hct (42-52) % MCV (80-100) fL MCH (25-34) pg MCHC (32-36) g/dL RDW Std Deviation (36.4-46.3) fL RDW Coeff of Soledad (11.5-14.5) % Plt Count (130-400) K/uL MPV (7.4-10.4) fL Immature Gran % (Auto) % Neut % (Auto) % Lymph % (Auto) % [place] % (Auto) % Eos % (Auto) % Baso % (Auto) % Neut # (Auto) (1.4-6.5) K/uL Lymph # (Auto) (1.2-3.4) K/uL [place] # (Auto) (0.11-0.59) K/uL Eos # (Auto) (0-0.5) K/uL Baso # (Auto) (0-0.2) K/uL Immature Gran # (Auto) (0.00-0.02) K/uL ESR (0-20) mm/hr PT (9.0-12.0) Seconds INR (0.9-1.1) Sodium (136-145) mmol/L Potassium (3.5-5.1) mmol/L Chloride (98-107) mmol/L Carbon Dioxide (21-32) mmol/L Anion Gap (3-11) BUN (7-18) mg/dl Creatinine (0.6-1.4) mg/dl Est Cr Clr Drug Dosing Est GFR ( Amer) ml/min Est GFR (Non-Af Amer) ml/min BUN/Creatinine Ratio (10-20) Glucose (70-99) mg/dl POC Glucose 193 H 370 H* 455 H* (70-99) mg/dl Estimat Average Glucose Hemoglobin A1c Calcium (8.5-10.1) mg/dl Magnesium (1.8-2.4) mg/dl Total Bilirubin (0.2-1) mg/dl Direct Bilirubin (0-0.2) mg/dl AST (15-37) U/L ALT (12-78) U/L Alkaline Phosphatase (45-117) U/L Total Creatine Kinase (39-308) U/L C-Reactive Protein (0-0.29) mg/dl Total Protein (6.4-8.2) gm/dl Albumin (3.4-5.0) gm/dl Globulin (2.5-4.0) gm/dl Albumin/Globulin Ratio (0.9-2) Beta-Hydroxybutyric Acd (0.2-2.81) mg/dl Procalcitonin (0-0.5) ng/ml COVID-19 Eval Order SARS-CoV-2 (PCR) (Negative) 12/14/20 12/14/20 12/14/20 Range/Units 21:02 19:53 18:45 WBC (4.8-10.8) K/uL RBC (4.7-6.1) M/uL Hgb (14.0-18.0) g/dL Hct (42-52) % MCV (80-100) fL MCH (25-34) pg MCHC (32-36) g/dL RDW Std Deviation (36.4-46.3) fL RDW Coeff of Soledad (11.5-14.5) % Plt Count (130-400) K/uL MPV (7.4-10.4) fL Immature Gran % (Auto) % Neut % (Auto) % Lymph % (Auto) % [place] % (Auto) % Eos % (Auto) % Baso % (Auto) % Neut # (Auto) (1.4-6.5) K/uL Lymph # (Auto) (1.2-3.4) K/uL [place] # (Auto) (0.11-0.59) K/uL Eos # (Auto) (0-0.5) K/uL Baso # (Auto) (0-0.2) K/uL Immature Gran # (Auto) (0.00-0.02) K/uL ESR (0-20) mm/hr PT (9.0-12.0) Seconds INR (0.9-1.1) Sodium (136-145) mmol/L Potassium (3.5-5.1) mmol/L Chloride (98-107) mmol/L Carbon Dioxide (21-32) mmol/L Anion Gap (3-11) BUN (7-18) mg/dl Creatinine (0.6-1.4) mg/dl Est Cr Clr Drug Dosing Est GFR ( Amer) ml/min Est GFR (Non-Af Amer) ml/min BUN/Creatinine Ratio (10-20) Glucose (70-99) mg/dl POC Glucose 499 H* 452 H* (70-99) mg/dl Estimat Average Glucose Hemoglobin A1c Calcium (8.5-10.1) mg/dl Magnesium (1.8-2.4) mg/dl Total Bilirubin (0.2-1) mg/dl Direct Bilirubin (0-0.2) mg/dl AST (15-37) U/L ALT (12-78) U/L Alkaline Phosphatase (45-117) U/L Total Creatine Kinase (39-308) U/L C-Reactive Protein (0-0.29) mg/dl Total Protein (6.4-8.2) gm/dl Albumin (3.4-5.0) gm/dl Globulin (2.5-4.0) gm/dl Albumin/Globulin Ratio (0.9-2) Beta-Hydroxybutyric Acd (0.2-2.81) mg/dl Procalcitonin (0-0.5) ng/ml COVID-19 Eval Order SARS-CoV-2 (PCR) NEGATIVE (Negative) 12/14/20 12/14/20 12/14/20 Range/Units 18:45 17:14 17:14 WBC (4.8-10.8) K/uL RBC (4.7-6.1) M/uL Hgb (14.0-18.0) g/dL Hct (42-52) % MCV (80-100) fL MCH (25-34) pg MCHC (32-36) g/dL RDW Std Deviation (36.4-46.3) fL RDW Coeff of Soledad (11.5-14.5) % Plt Count (130-400) K/uL MPV (7.4-10.4) fL Immature Gran % (Auto) % Neut % (Auto) % Lymph % (Auto) % [place] % (Auto) % Eos % (Auto) % Baso % (Auto) % Neut # (Auto) (1.4-6.5) K/uL Lymph # (Auto) (1.2-3.4) K/uL [place] # (Auto) (0.11-0.59) K/uL Eos # (Auto) (0-0.5) K/uL Baso # (Auto) (0-0.2) K/uL Immature Gran # (Auto) (0.00-0.02) K/uL ESR (0-20) mm/hr PT (9.0-12.0) Seconds INR (0.9-1.1) Sodium (136-145) mmol/L Potassium (3.5-5.1) mmol/L Chloride (98-107) mmol/L Carbon Dioxide (21-32) mmol/L Anion Gap (3-11) BUN (7-18) mg/dl Creatinine (0.6-1.4) mg/dl Est Cr Clr Drug Dosing Est GFR ( Amer) ml/min Est GFR (Non-Af Amer) ml/min BUN/Creatinine Ratio (10-20) Glucose (70-99) mg/dl POC Glucose (70-99) mg/dl Estimat Average Glucose Hemoglobin A1c Calcium (8.5-10.1) mg/dl Magnesium 1.9 (1.8-2.4) mg/dl Total Bilirubin (0.2-1) mg/dl Direct Bilirubin (0-0.2) mg/dl AST (15-37) U/L ALT (12-78) U/L Alkaline Phosphatase (45-117) U/L Total Creatine Kinase 68 (39-308) U/L C-Reactive Protein (0-0.29) mg/dl Total Protein (6.4-8.2) gm/dl Albumin (3.4-5.0) gm/dl Globulin (2.5-4.0) gm/dl Albumin/Globulin Ratio (0.9-2) Beta-Hydroxybutyric Acd (0.2-2.81) mg/dl Procalcitonin 0.98 H (0-0.5) ng/ml COVID-19 Eval Order Covid19 at [facility] SARS-CoV-2 (PCR) (Negative) 06/05/21 06/05/21 06/05/21 Range/Units 17:14 17:14 16:58 WBC 12.88 H (4.8-10.8) K/uL RBC 4.89 (4.7-6.1) M/uL Hgb 14.1 (14.0-18.0) g/dL Hct 41.3 L (42-52) % MCV 84.5 (80-100) fL MCH 28.8 (25-34) pg MCHC 34.1 (32-36) g/dL RDW Std Deviation 39.5 (36.4-46.3) fL RDW Coeff of Soledad 13.0 (11.5-14.5) % Plt Count 194 (130-400) K/uL MPV 10.0 (7.4-10.4) fL Immature Gran % (Auto) 0.2 % Neut % (Auto) 87.6 % Lymph % (Auto) 6.3 % [place] % (Auto) 5.7 % Eos % (Auto) 0.1 % Baso % (Auto) 0.1 % Neut # (Auto) 11.28 H (1.4-6.5) K/uL Lymph # (Auto) 0.81 L (1.2-3.4) K/uL [place] # (Auto) 0.74 H (0.11-0.59) K/uL Eos # (Auto) 0.01 (0-0.5) K/uL Baso # (Auto) 0.01 (0-0.2) K/uL Immature Gran # (Auto) 0.03 H (0.00-0.02) K/uL ESR 121 H (0-20) mm/hr PT (9.0-12.0) Seconds INR (0.9-1.1) Sodium 126 L (136-145) mmol/L Potassium 4.1 (3.5-5.1) mmol/L Chloride 86 L (98-107) mmol/L Carbon Dioxide 31 (21-32) mmol/L Anion Gap 9.0 (3-11) BUN 33 H (7-18) mg/dl Creatinine 1.87 H (0.6-1.4) mg/dl Est Cr Clr Drug Dosing Not Reportable Est GFR ( Amer) 47.5 ml/min Est GFR (Non-Af Amer) 41.0 ml/min BUN/Creatinine Ratio 17.7 (10-20) Glucose 650 H* (70-99) mg/dl POC Glucose (70-99) mg/dl Estimat Average Glucose Hemoglobin A1c Calcium 9.4 (8.5-10.1) mg/dl Magnesium (1.8-2.4) mg/dl Total Bilirubin 0.6 (0.2-1) mg/dl Direct Bilirubin (0-0.2) mg/dl AST 5 L (15-37) U/L ALT 15 (12-78) U/L Alkaline Phosphatase 121 H (45-117) U/L Total Creatine Kinase (39-308) U/L C-Reactive Protein 16.10 H (0-0.29) mg/dl Total Protein 8.2 (6.4-8.2) gm/dl Albumin 2.9 L (3.4-5.0) gm/dl Globulin 5.3 H (2.5-4.0) gm/dl Albumin/Globulin Ratio 0.6 L (0.9-2) Beta-Hydroxybutyric Acd 8.56 H (0.2-2.81) mg/dl Procalcitonin (0-0.5) ng/ml COVID-19 Eval Order SARS-CoV-2 (PCR) (Negative) Medications Administered Current Inpatient Medications Acetaminophen (Acetaminophen 325 Mg Tab) 650 mg PO Q4H PRN PRN Reason: pain/fever Stop: 01/13/21 21:10 Aspirin (Aspirin 81 Mg Ectab) 81 mg PO QAM STEVE Stop: 01/14/21 08:59 Last Admin: 12/15/20 08:21 Dose: 81 mg Documented by: Bumetanide (Bumetanide 1 Mg Tab) 2 mg PO DAILY [facility] Stop: 01/14/21 08:59 Last Admin: 12/15/20 08:21 Dose: 2 mg Documented by: Carvedilol (Carvedilol 6.25 Mg Tab) 6.25 mg PO BID [facility] Stop: 01/13/21 21:10 Last Admin: 12/15/20 08:21 Dose: 6.25 mg Documented by: Dextrose (Dextrose 50% 50 Ml Syringe) 25 - 50 ml IV UD PRN; Protocol PRN Reason: Hypoglycemia Protocol Stop: 01/13/21 21:10 Docusate Sodium (Docusate Sodium 100 Mg Cap) 100 mg PO BID PRN PRN Reason: Constipation Stop: 01/13/21 21:10 Enoxaparin Sodium (Enoxaparin Inj 40 Mg/0.4 Ml Syr) 40 mg SQ Q12H STEVE Stop: 01/14/21 08:59 Last Admin: 12/15/20 08:20 Dose: 40 mg Documented by: Glucagon (Glucagon For Inj 1 Mg Vial) 1 mg SQ UD PRN; Protocol PRN Reason: Hypoglycemia Protocol Stop: 01/13/21 21:10 Glucose (Glucose 10 Tabs/Tube) 4 - 8 tabs PO UD PRN; Protocol PRN Reason: Hypoglycemia Protocol Stop: 01/13/21 21:10 Glucose (Glucose 40% Gel 15 Gm Tube) 15 - 30 gm PO UD PRN; Protocol PRN Reason: Hypoglycemia Protocol Stop: 01/13/21 21:10 Piperacillin Sod/Tazobactam (Sod 4.5 gm/ Dextrose) 120 mls @ 30 mls/hr IV Q8H STEVE; Protocol Stop: 12/22/20 03:59 Last Infusion: 12/15/20 06:33 Dose: Infused Documented by: Daptomycin 550 mg/ Syringe 11 mls @ 5.5 mls/min IV Q24H STEVE; Protocol Stop: 12/22/20 03:59 Last Admin: 12/15/20 03:12 Dose: 5.5 mls/min Documented by: Insulin Aspart (Insulin Aspart 100 Units/Ml 3 Ml Pen) 0 units SC ACHS STEVE; Protocol Stop: 01/13/21 21:44 Last Admin: 12/15/20 08:24 Dose: 15 units Documented by: Insulin Glargine (Insulin Glargine Solostar 100 Units/Ml 3 Ml Pen) 60 units SC DAILY STEVE; Protocol Stop: 01/14/21 08:59 Last Admin: 12/15/20 10:00 Dose: 60 units Documented by: Lisinopril (Lisinopril 5 Mg Tab) 5 mg PO DAILY STEVE Stop: 01/14/21 08:59 Last Admin: 12/15/20 08:21 Dose: 5 mg Documented by: Miscellaneous (Carbohydrates For Hypoglycemia ) 15 - 30 gm PO UD PRN PRN Reason: Hypoglycemia Protocol Stop: 01/13/21 21:10 Miscellaneous Information (Pharmacy Glycemic Mgmt Consult) 1 ea N/A UD PRN; Protocol PRN Reason: Consult Stop: 01/13/21 21:24 Miscellaneous Information (Piperacill/Tazobac Consult Active) 1 ea N/A UD PRN PRN Reason: Consult Stop: 01/13/21 21:10 Miscellaneous Information (Daptomycin Consult Active) 1 ea N/A UD PRN PRN Reason: Consult Stop: 01/13/21 21:10 Ondansetron HCl (Ondansetron Inj 2 Mg/Ml 2 Ml Vial) 4 mg IV Q6H PRN PRN Reason: Nausea Stop: 01/13/21 21:10 Pantoprazole Sodium (Pantoprazole 40 Mg Tab) 40 mg PO QAM STEVE Stop: 01/14/21 08:59 Last Admin: 12/15/20 08:21 Dose: 40 mg Documented by: Psyllium Hydrophilic Mucilloid (Psyllium 58.6% Powder Packet) 1 pkt PO QAM STEVE Stop: 01/14/21 08:59 Last Admin: 12/15/20 08:21 Dose: Not Given Documented by: Tramadol HCl (Tramadol Hcl 50 Mg Tablet) 50 mg PO BID PRN PRN Reason: pain Stop: 01/13/21 21:10 Resident Activity Tracking Resident Involvement: Resident Care Provided Care Provided: Adult Hospital Medicine (1) CAD (coronary artery disease) Associated angina: without angina Coronary Disease-Associated Artery/Lesion type: tribal artery [place] vs. transplanted heart: tribal heart Qualified Code(s): I25.10 - Atherosclerotic heart disease of tribal coronary artery without angina pectoris (2) Chronic kidney disease Chronic kidney disease stage: unspecified stage Qualified Code(s): N18.9 - Chronic kidney disease, unspecified (3) GERD (gastroesophageal reflux disease) Esophagitis presence: esophagitis presence not specified Qualified Code(s): K21.9 - Gastro-esophageal reflux disease without esophagitis (4) Hypertension Hypertension type: essential hypertension Qualified Code(s): I10 - Essential (primary) hypertension (5) Puncture wound of foot, right Encounter type: initial encounter Qualified Code(s): S91.331A - Puncture wound without foreign body, right foot, initial encounter
[2020-12-15] MEDS: ENOXAPARIN INJ 40 MG/0.4 ML SYR SQ SCH ×2 (08:20→20:36)
[2020-12-15] MEDS: PANTOprazole 40 MG TAB PO SCH (08:21)
[2020-12-15] MEDS: carvediloL 6.25 MG TAB PO SCH ×2 (08:21→20:34)
[2020-12-15] MEDS: BUMETANIDE 1 MG TAB PO SCH (08:21)
[2020-12-15] MEDS: lisinopril 5 MG TAB PO SCH (08:21)
[2020-12-15] MEDS: ASPIRIN 81 MG ECTAB PO SCH (08:21)
[2020-12-15] MEDS: PSYLLIUM 58.6% POWDER PACKET PO SCH (08:21)
[2020-12-15] MEDS ORDERED: INSULIN GLARGINE SOLOSTAR 100 UNITS/ML 3 ML PEN SC SCH ×2 (09:00)
[2020-12-15] MEDS ORDERED: INSULIN GLARGINE SOLOSTAR 100 UNITS/ML 3 ML PEN SC ONE (09:00)
--- NOTE | 2020-12-15 09:31 | Surgery Consultation ---
Date of Consultation December 15, 2020 Assessment & Plan (1) Cellulitis of foot, right: seen with Dr. Davis cont IV abx repeat XR no plans for surgery at this point History of Present Illness Attending Physician: Daysi Brand MD History of Present Illness 50 y/o male diabetic found a thumb tack in heel, does not know when he stepped on it. Admitted overnight. Allergies Allergy/AdvReac Type Severity Reaction Status Date / Time No Known Allergies Allergy Verified 12/14/20 17:48 Home Medications Medication Instructions Recorded Confirmed Type aspirin 81 mg PO QAM 04/03/18 12/14/20 History ascorbate calcium (vitamin C) 500 500 mg PO QAM 12/25/19 12/14/20 History mg tablet carvedilol 6.25 mg tablet 6.25 mg PO BID #180 tab 01/16/20 12/14/20 Rx Metamucil 1 tbsp PO QAM 01/31/20 12/14/20 History Probiotic Blend 1 cap PO QAM 01/31/20 12/14/20 History metolazone 5 mg tablet 5 mg PO DAILY PRN #30 tab 03/13/20 12/14/20 Rx pantoprazole 40 mg tablet,delayed 40 mg PO QAM #90 tab 05/17/20 12/14/20 Rx release blood sugar diagnostic #125 ea 08/21/20 09/25/20 Rx insulin lispro 100 unit/mL 10 unit SUBCUT TID #15 ml 08/23/20 12/14/20 Rx subcutaneous half-unit pen lisinopril 5 mg tablet 5 mg PO DAILY #30 tab 10/16/20 12/14/20 Rx tramadol 50 mg tablet 50 mg PO BID PRN #60 tab 10/31/20 12/14/20 Rx pen needle, diabetic 32 gauge x #400 ea 11/01/20 Rx 5/32" insulin glargine 100 unit/mL (3 60 unit SUBCUT QAM #15 ml 12/10/20 12/14/20 Rx mL) subcutaneous pen atorvastatin 20 mg PO DAILY 12/14/20 12/14/20 History bumetanide 2 mg PO DAILY 12/14/20 12/14/20 History Patient History Medical History CAD (coronary artery disease) Cardiomyopathy, nonischemic CHF (congestive heart failure) Chronic back pain CKD (chronic kidney disease) Diabetes Diabetic gastroparesis Diabetic peripheral neuropathy GERD (gastroesophageal reflux disease) History of anesthesia reaction woke up during last colonoscopy 2017 HLD (hyperlipidemia) HTN (hypertension) Hx MRSA infection Iron deficiency anemia Morbid obesity with BMI of 50.0-59.9, adult Myocardial infarction "silent" between the time frame of 7623-2223 ??--follows with [facility] Non-ischemic cardiomyopathy Renal agenesis, 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 Family History Family/Other Colon cancer Father Prostate cancer Diabetes Hypertension Brother Diabetes Mother Diabetes Grandfather (Paternal) Family hx of colon cancer Other No family history of adverse response to anesthesia No significant family history Social History Smoking Status: Never smoker Second Hand Exposure: No; Do You Dip or Chew Tobacco: No; Hx Alcohol Use: No Hx Substance Use: No Preferred Language: Setswana Communication Ability: Effective Visual Impairment: Limited Hearing Ability: Normal Interpreter And Translator Required: No Beliefs That Will Affect Care: None marital status: Single Current Living Situation: Family Current Living Situation Comment: Pt. lives w/ mother and father current occupational status: employed Other Information That Helps Us Care for You: No Feels Safe at Home: Yes Safety Concerns: Feels Safe At This Time during the past year weight has: remained stable Assistive Devices: Cane and Glasses Assistive Devices Comment: Pts. personal cane at bedside Review of Systems Constitutional: no fever and no chills Physical Exam Musculoskeletal: right foot small puncture wound, no surrounding erythema, no drainage Results & Data ([facility]) Vital Signs (Past 12 Hours) Vital Signs Temp Pulse Pulse Resp BP BP Pulse Ox 12/15/20 07:57 36.7 C 84 16 117/72 94 12/15/20 07:40 86 12/15/20 03:16 36.4 C L 89 16 101/65 93 12/14/20 22:53 37.2 C 93 H 18 115/74 91 12/14/20 22:20 96 H 12/14/20 22:00 37.5 C 97 H 18 153/82 H 93 PG Care Time/CCT Total # of Minutes Spent Total Time Spent with Patient: Total time spent is greater than 50% in coordination of care (as documented) at patient's floor/unit and/or counseling patient: Coding Level of Care Code 97209 Inpt Consult Level 1 Diagnoses Cellulitis of foot, right L03.115
--- NOTE | 2020-12-15 09:42 | Ultrasound Report ---
RIGHT LOWER EXTREMITY VENOUS DOPPLER CLINICAL HISTORY: Right lower extremity swelling. COMPARISON STUDY: Right lower extremity Doppler ultrasound March 28, 2020. TECHNIQUE: Sonography of the deep venous system of the right lower extremity was performed. Compress ion and augmentation were evaluated. FINDINGS: The right common femoral, superficial femoral and popliteal veins were compressible. Augme ntation was normal. Flow was shown within the deep calf vessels. Right lower extremity subcutaneous e josé luis is noted. IMPRESSION: No evidence of deep venous thrombus within the right lower extremity. ACT 112: Negative or not required by law. Electronically signed by: Beni Walker M.D. 12/15/2020 9:41 AM
--- NOTE | 2020-12-15 10:33 | Pharmacy Report ---
Pharmacy Glycemic Short Note 2 - Date of Service December 15, 2020 - Glycemic Short BSG Results (Last 24 hours): 12/14/20 12/14/20 12/14/20 17:14 19:53 21:02 Glucose 650 H* POC Glucose 452 H* 499 H* 12/14/20 12/14/20 12/15/20 21:05 22:58 01:31 Glucose POC Glucose 455 H* 370 H* 193 H 12/15/20 12/15/20 12/15/20 04:29 06:35 07:35 Glucose 222 H POC Glucose 208 H 271 H OUTPATIENT ANTIDIABETIC REGIMEN: * Basaglar 60 units SQ AM * Humalog 10 units SQ TID ASSESSMENT: * 50 year old obese male admitted for cellulitis of foot, found thumb tack in bottom of foot, unknown how long it was there, surgery consulted, no surgery planned at this time, on IV antibiotics. * Admitted with hyperglycemia, received 10 units IV regular insulin x2, 37 units SQ NovoLog, 40 units Lantus, and blood sugar came down to 193mg/dl * A1c pending, on basal bolus at home, will use as inpatient and titrate to goal blood sugar PLAN FOR INPATIENT GLYCEMIC CONTROL: * Basal insulin * Lantus 60 units SQ daily * Bolus insulin * NovoLog per scale ACHS or Q6hrs while NPO * Goal Range: Low 110 mg/dL - High 140 mg/dL * Correction Factor: 12 mg/dL/unit * Nutritional / Prandial insulin per carb ratio of 1 unit per 4 grams CHO consumed
[2020-12-15] MEDS ORDERED: GADOBUTROL 30ML VIAL IV ONE (15:54)
[2020-12-15] MEDS: traMADol HCL 50 MG TABLET PO PRN (17:12)
--- NOTE | 2020-12-15 21:15 | XRay Report ---
XR foot RT 2V CLINICAL HISTORY: injury COMPARISON: December 14, 2020 DISCUSSION: No acute fracture or dislocation seen. Plantar and posterior osteophytes are again seen. Soft tissue edema and vascular calcifications are demonstrated. Redemonstration of focal area of gas collection within plantar soft tissue which is unchanged since p rior study yesterday. IMPRESSION: 1. Redemonstration of focal area of gas collection within the plantar soft tissue which is unchanged since prior study yesterday. 2. Atherosclerosis. 3. No acute fracture or dislocation. ACT 112: Negative or not required by law. The above report was generated using voice recognition software. It may contain grammatical, syntax o r spelling errors. Electronically signed by: Yesica Bansal DO 12/15/2020 9:14 PM
[2020-12-16] MEDS: PIPERACILLIN/TAZOBACTAM 4.5 GM in DEXTROSE 5% 100 ML IV SCH ×3 (04:29→19:55)
[2020-12-16] MEDS: DAPTOmycin 400 MG in SYRINGE 0 ML IV SCH (04:29)
[2020-12-16 07:34] LABS: Estimated Average Glucose 341 mg/dl; Hemoglobin A1C 13.5 % (4.5-5.6)
[2020-12-16] MEDS: carvediloL 6.25 MG TAB PO SCH ×2 (08:15→20:35)
[2020-12-16] MEDS: PANTOprazole 40 MG TAB PO SCH (08:18)
[2020-12-16] MEDS: PSYLLIUM 58.6% POWDER PACKET PO SCH (08:19)
[2020-12-16] MEDS: ASPIRIN 81 MG ECTAB PO SCH (08:19)
[2020-12-16] MEDS: ENOXAPARIN INJ 40 MG/0.4 ML SYR SQ SCH ×2 (08:21→20:35)
[2020-12-16] MEDS: INSULIN ASPART 100 UNITS/ML 3 ML PEN SC SCH ×4 (08:22→20:36)
[2020-12-16 08:35] LABS: Basophils # (auto) 0.02 K/uL (0-0.2); Basophils % (auto) 0.2 %; Eosinophils # (auto) 0.08 K/uL (0-0.5); Eosinophils % (auto) 0.6 %; Hematocrit (blood only) 37.4 % (42-52); Hemoglobin 12.6 g/dL (14.0-18.0); Immature Granulocytes # (auto) 0.03 K/uL (0.00-0.02); Immature Granulocytes % (auto) 0.2 %; Lymphocytes # (auto) 1.09 K/uL (1.2-3.4); Lymphocytes % (auto) 8.4 %; Mean Corpuscular Hemoglobin 28.6 pg (25-34); Mean Corpuscular Hgb Conc 33.7 g/dL (32-36); Mean Corpuscular Volume 84.8 fL (80-100); Monocytes # (auto) 0.89 K/uL (0.11-0.59); Monocytes % (auto) 6.9 %; Neutrophils % (auto) 83.7 %; Platelet Count 207 K/uL (130-400); RDW Coefficient of Variation 13.1 % (11.5-14.5); RDW Standard Deviation 40.8 fL (36.4-46.3); Red Blood Count 4.41 M/uL (4.7-6.1); White Blood Count 12.91 K/uL (4.8-10.8)
[2020-12-16] MEDS ORDERED: INSULIN GLARGINE SOLOSTAR 100 UNITS/ML 3 ML PEN SC SCH (09:00)
[2020-12-16] MEDS: lisinopril 5 MG TAB PO SCH (09:01)
[2020-12-16 09:06] LABS: BUN Creatinine Ratio 17.6 (10-20); Calcium 8.6 mg/dl (8.5-10.1); Creatinine Clr Calc Pharmacy 51.7 ml/min; Est GFR (Non-African American) 30.2 ml/min; Potassium 3.5 mmol/L (3.5-5.1)
[2020-12-16] MEDS: BUMETANIDE 1 MG TAB PO SCH (09:08)
--- NOTE | 2020-12-16 09:38 | Medical Student Progress Note ---
Date of Service December 16, 2020 Assessment & Plan (1) Cellulitis of foot, right: 50 Y/O male with poorly controlled DM and peripheral neuropathy presenting with swelling and pain of RLE following a puncture wound from a marisol thumb tack. Cellulitis of the right foot -Patient afebrile, HD stable, no evidence of systemic infection. -X-ray of right foot shows soft tissue gas corresponding to location of injury unchanged since admission. -Ankle MRI shows no evidence of osteomyelitis or abscess. -No clinical evidence of necrotizing fasciitis or ascending infection. -Doppler ultrasound was negative. -Given tetanus in the ER. -Continue Daptomycin and Zosyn -Prior history of MRSA infection -Line of erythema marked and will monitor for progression. -Tylenol PRN fever/pain -Tramadol PRN pain -General Surgery consulted -Continue medical management with IV antibiotics -No plans for surgery at present -Wound care consulted Type 2 diabetes mellitus with neurological manifestations uncontrolled -Patient with poorly controlled DM. -He does not take his metformin regularly. His recent home morning blood sugars have been in the 400s. -HgbA1c =13.5 -Basal-Bolus insulin during inpatient stay. Lantus increased today based on sampson vated morning BSG. Basal: Lantus 75 units SQ daily Bolus: NovoLog per scale ACHS or Q6hrs while NPO Goal Range: Low 110 mg/dL - High 140 mg/dL Correction Factor: 10 mg/dL/unit Nutritional / Prandial insulin per carb ratio of 1 unit per 3 grams CHO consumed -Glycemic management consultation appreciated -Diabetes education Chronic kidney disease -BUN (43) and Cr (2.4), up from BUN(32) and Cr(1.87) on admission. -Monitor BUN, Cr, electrolytes, and UOP -Hold Bumex -Avoid nephrotoxic agents -Renal dosing where needed Hypertension Blood pressure stable -Continue Carvedilol and Lisinopril -Continue to monitor BP Chronic diastolic CHF Patient appears mildly volume overloaded, received extra IV 1 mg of Bumex in the ED with resolution of symptoms -Monitor I/Os, weights -Hold home dose - Bumex 2mg po daily due to stress on kidneys Dyslipidemia Chronic -Statin on hold while on Daptomycin CAD Patient denies chest pain -Continue ASA 81mg po daily -Continue Carvedilol 6.25mg po BID -Continue Lisinopril -Statin on hold while on Daptomycin GERD Chronic -Continue Protonix 40mg po q AM FEN: AHA diet/DM2 Code Status: Full code DVT PPX: Lovenox PT/OT: Not indicated at present Dispo: Med telemetry (2) Hypertension: Hypertension type: essential hypertension Qualified Code(s): I10 - Essential (primary) hypertension (3) Puncture wound of foot, right: Encounter type: initial encounter Qualified Code(s): S91.331A - Puncture wound without foreign body, right foot, initial encounter (4) Chronic kidney disease: Chronic kidney disease stage: unspecified stage Qualified Code(s): N18.9 - Chronic kidney disease, unspecified (5) Dyslipidemia: (6) Chronic diastolic CHF (congestive heart failure): (7) CAD (coronary artery disease): Associated angina: without angina Coronary Disease-Associated Artery/Lesion type: [place] artery [place] vs. transplanted heart: [place] heart Qualified Code(s): I25.10 - Atherosclerotic heart disease of [place] coronary artery without angina pectoris (8) GERD (gastroesophageal reflux disease): Esophagitis presence: esophagitis presence not specified Qualified Code(s): K21.9 - Gastro-esophageal reflux disease without esophagitis Admission and Anticipated Discharge Date Admission Date: December 14, 2020 Supervising Attestation I personally examined the patient and verified all lynn points of history and exam, discussed case, and agree with decision making with Penny Pascal MS2 Has no significant pain. Did not before, due to fairly dense neuropathy. When asked how his diabetes may play a role in this or why to be concerned about his poor level of sugar control in general, he offers no clear answers. Vitals noted, in general he is awake and alert pleasant no distress. HEENT normocephalic atraumatic mucous membranes moist. Breathing unlabored no accessory muscle use good effort. Skin shows area of puncture wound with a little bit of dull dusky area around the ulceration, no exudate no crepitus, the rest of his foot shows a little bit of erythema that is outlined in receding, no crepitus or fluctuance, on that side his barr is slightly more swollen, but seems to be reactive given that it is not erythematous or tender. Foot cellulitisrelated to puncture wound and uncontrolled diabetes, undoubtedly did not notice the tach due to his dense neuropathy. Continue MRSA and Pseudomonas coverage given uncontrolled diabetes, probable poor vascular flow, and unknown duration of wound. Continue local wound care. Uncontrolled type 2 diabetestrying to lay a foundation of education on "why to care" discussing hyperglycemia induced microvascular ischemia. We will try to continue to educate further. ARF on CKDhold diuretics. Follow. Otherwise as above Subjective Pt was sitting up in bed in no acute distress. He is not in pain (0/10), which is improved from admission which he rated at a 4/10. He states that he had some chills overnight, but no subjective fever. He understands that his blood sugars need to be kept under better control to avoid worsening diabetic complications. He is not compliant with his medications, but could not state why he does not take them. He says that he checks his blood sugar in the mornings and has typical readings around 400. He was counseled on the importance of glycemic control. He did have an episode of low blood pressure this morning upon sitting up, but remained asymptomatic. He does state that he has a history of syncope. Review of Systems Constitutional: + chills; no fever and no sweats Eyes: no problem reported Ear, Nose, Mouth, Throat: + nasal congestion; no dizziness, no facial pain, no sinus pain/pressure and no sore throat Respiratory: + cough; no dyspnea, no pain with cough and no wheezing Cardiovascular: + edema; no chest pain, no dyspnea and no lightheadedness Gastrointestinal: + constipation; no abdominal pain, no nausea and no vomiting Genitourinary: no dysuria, no urinary frequency, no urinary hesitancy, no urinary incontinence and no hematuria Musculoskeletal: + swelling; no radicular pain and no joint pain Integumentary: + wounds, + erythema and + skin swelling Neurologic: + loss of sensation and + numbness; no generalized weakness and no dizziness Physical Exam Constitutional: + morbidly obese and cooperative; no acute distress Eyes: PERRL, conjunctivae normal, anicteric sclerae ENMT: external ear and nose normal, oropharynx normal Neck: trachea midline, no thyromegaly Respiratory: normal respiratory effort, lungs clear to auscultation + cough Cardiovascular: Rate/Rhythm: regular rate and regular rhythm Heart Sounds: no murmur and no cardiac rub Vessels: posterior tibial pulses present (weak) and dorsalis pedis pulses present (weak) Extremities: normal capillary refill and + pedal edema Gastrointestinal (Abdomen): normal bowel sounds, soft, nontender, no hepatosplenomegaly Musculoskeletal: no cyanosis or clubbing, extremities motor strength 5/5 Extremities: extremities normal to inspection and strength 5/5 throughout; no cyanosis Ankle: + skin erythema Skin: + wound, + dry skin and + erythema Wound with dressings on the right heel. Wound is non-purulent. Right foot and ankle are warm. Erythematous at and below the ankle. Pitting edema. Neurologic: PERRL, EOMI, accommodation nl, no face palsy, no dysarthria moves all extremities Motor/Sensory: + sensory deficit Sensation to light touch absent below mid-calf. Can feel pressure. Psychiatric: A+Ox3, euthymic affect Lymphatic: no cervical or axillary lymphadenopathy Results & Data ([facility]) Vital Signs (Past 12 Hours) Vital Signs Temp Pulse Pulse Resp BP Pulse Ox 12/16/20 09:07 94 12/16/20 08:38 87 108/71 12/16/20 08:18 37.5 C 84 19 96/60 L 86 L 12/16/20 05:06 92 H 12/16/20 04:44 36.7 C 89 20 116/70 90 12/15/20 23:00 36.7 C 88 18 112/65 90
--- NOTE | 2020-12-16 09:46 | Magnetic Resonance Report ---
MR ankle RT wo/w con: HISTORY: 50 years-old Male r/o abscess plantar surface puncture site(heel). Soft tissue wound of the heel pad with possible osteomyelitis. COMPARISON: Radiographs 12/15/2020, Right forefoot MRI 02/12/2017. TECHNIQUE: Multiplanar multisequence MRI of the right ankle was obtained both with and without the us e of 14.5 mL of Gadavist. FINDINGS: Lateral ankle ligaments appear intact. Moderate tendinosis of the peroneus longus. Chronic appearing at least intermediate grade split tear of the inframalleolar segment of peroneus brevis. Trace associ ated tenosynovitis. The medial and extensor tendons appear intact. The syndesmotic ligaments appear i ntact. Mild thickening of the distal Achilles tendon compatible with tendinosis. Large enthesophytes of the calcaneus at the Achilles and plantar insertion sites. Moderate thickening of the medial cord plantar fascia with trace associated edema suggestive of acute on chronic plantar fasciitis. Subcutaneous gas within the heel pad redemonstrated along with subcutaneous edema. No drainable fluid collection. There is mild multifocal osteoarthritis of the hindfoot and imaged mid foot with minimal osteoarthritis of the tibiotalar joint. No significant bone marrow edema or osseous erosions. No acu te fracture or dislocation. No osteochondral defect. There is moderate to extensive diffuse subcutane ous edema, most pronounced dorsally. There is atrophy of the intrinsic musculature with associated ed sol. There is enhancement involving the abductor hallucis and flexor digitorum brevis musculature. St udy is mildly motion degraded. IMPRESSION: 1. Subcutaneous emphysema of the heel pad with mild cellulitis. No abscess or evidence of osteomyelit is. 2. Moderate to extensive subcutaneous edema of the foot and ankle. 3. Atrophy of the intrinsic musculature may be secondary to chronic denervation changes. Enhancement of the abductor hallucis and flexor digitorum brevis musculature may also be secondary to chronic den ervation changes versus myositis. ACT 112: Negative or not required by law. The above report was generated using voice recognition software. It may contain grammatical, syntax o r spelling errors. Dictated: 12/16/2020 8:40 AM Transcribed: 12/16/2020 9:30 AM [place] [id number] [facility] Electronically signed by: Madhav Zaragoza M.D. 12/16/2020 9:45 AM
--- NOTE | 2020-12-16 10:09 | Communication Note ---
Date of Service: December 16, 2020 Ankle MRI results as follows: 1. Subcutaneous emphysema of the heel pad with mild cellulitis. No abscess or evidence of osteomyelitis. 2. Moderate to extensive subcutaneous edema of the foot and ankle. 3. Atrophy of the intrinsic musculature may be secondary to chronic denervation changes. Enhancement of the abductor hallucis and flexor digitorum brevis m usculature may also be secondary to chronic denervation changes versus myositis. -No abscess or evidence of osteo seen. Continue supportive care and abx. Wound care team consulted. No plans for surgical intervention from our standpoint. If any further concerns may consider an orthopedics consultation.
--- NOTE | 2020-12-16 14:27 | Pharmacy Report ---
Pharmacy Glycemic Short Note 2 - Date of Service December 16, 2020 - Glycemic Short BSG Results (Last 24 hours): 12/15/20 12/15/20 12/16/20 16:41 20:35 07:46 Glucose POC Glucose 196 H 167 H 247 H 12/16/20 12/16/20 08:05 11:31 Glucose 220 H POC Glucose 179 H OUTPATIENT ANTIDIABETIC REGIMEN: * Basaglar 60 units SQ AM * Humalog 10 units SQ TID ASSESSMENT: 12/16/20: * Improvement in BSGs after Novolog adjustments yesterday. * Fasting BSG elevated this morning, so Lantus was increased. * Will continue to follow and adjust as necessary. 12/15 * 50 year old obese male admitted for cellulitis of foot, found thumb tack in bottom of foot, unknown how long it was there, surgery consulted, no surgery planned at this time, on IV antibiotics. * Admitted with hyperglycemia, received 10 units IV regular insulin x2, 37 units SQ NovoLog, 40 units Lantus, and blood sugar came down to 193mg/dl * A1c pending, on basal bolus at home, will use as inpatient and titrate to goal blood sugar PLAN FOR INPATIENT GLYCEMIC CONTROL: * Basal insulin * Lantus 75 units SQ daily * Bolus insulin * NovoLog per scale ACHS or Q6hrs while NPO * Goal Range: Low 110 mg/dL - High 140 mg/dL * Correction Factor: 10 mg/dL/unit * Nutritional / Prandial insulin per carb ratio of 1 unit per 3 grams CHO consumed
[2020-12-16] MEDS: traMADol HCL 50 MG TABLET PO PRN (16:09)
--- NOTE | 2020-12-16 16:44 | Billing Data ---
Date of Service December 16, 2020 Coding Level of Care Code 74600 Subseq Hosp Care Lvl 3
[2020-12-17] MEDS: PIPERACILLIN/TAZOBACTAM 4.5 GM in DEXTROSE 5% 100 ML IV SCH ×3 (03:49→20:10)
[2020-12-17] MEDS: DAPTOmycin 400 MG in SYRINGE 0 ML IV SCH (04:01)
[2020-12-17] MEDS: ACETAMINOPHEN 325 MG TAB PO PRN (04:10)
[2020-12-17 08:03] LABS: Basophils # (auto) 0.02 K/uL (0-0.2); Basophils % (auto) 0.2 %; Eosinophils # (auto) 0.13 K/uL (0-0.5); Eosinophils % (auto) 1.3 %; Hematocrit (blood only) 35.9 % (42-52); Immature Granulocytes # (auto) 0.03 K/uL (0.00-0.02); Immature Granulocytes % (auto) 0.3 %; Lymphocytes # (auto) 1.49 K/uL (1.2-3.4); Lymphocytes % (auto) 14.5 %; Mean Corpuscular Hemoglobin 28.6 pg (25-34); Mean Corpuscular Hgb Conc 33.4 g/dL (32-36); Mean Corpuscular Volume 85.5 fL (80-100); Mean Platelet Volume 9.7 fL (7.4-10.4); Monocytes # (auto) 0.76 K/uL (0.11-0.59); Monocytes % (auto) 7.4 %; Neutrophils # (auto) 7.84 K/uL (1.4-6.5); Neutrophils % (auto) 76.3 %; Platelet Count 215 K/uL (130-400); RDW Coefficient of Variation 13.1 % (11.5-14.5); RDW Standard Deviation 41.4 fL (36.4-46.3); White Blood Count 10.27 K/uL (4.8-10.8)
[2020-12-17] MEDS: INSULIN ASPART 100 UNITS/ML 3 ML PEN SC SCH ×4 (08:09→20:11)
[2020-12-17] MEDS: INSULIN GLARGINE SOLOSTAR 100 UNITS/ML 3 ML PEN SC SCH (08:11)
[2020-12-17] MEDS: PANTOprazole 40 MG TAB PO SCH (08:14)
[2020-12-17] MEDS: PSYLLIUM 58.6% POWDER PACKET PO SCH (08:14)
[2020-12-17] MEDS: lisinopril 5 MG TAB PO SCH (08:14)
[2020-12-17] MEDS: ASPIRIN 81 MG ECTAB PO SCH (08:14)
[2020-12-17] MEDS: carvediloL 6.25 MG TAB PO SCH ×2 (08:15→20:10)
[2020-12-17] MEDS: ENOXAPARIN INJ 40 MG/0.4 ML SYR SQ SCH ×2 (08:15→20:11)
[2020-12-17 08:31] LABS: BUN Creatinine Ratio 19.1 (10-20); Calcium 8.5 mg/dl (8.5-10.1); Creatinine Clr Calc Pharmacy 46.5 ml/min; Est GFR (African American) 30.7 ml/min; Est GFR (Non-African American) 26.5 ml/min; Potassium 3.4 mmol/L (3.5-5.1)
--- NOTE | 2020-12-17 10:43 | Medical Student Progress Note ---
Date of Service December 17, 2020 Assessment & Plan (1) Cellulitis of foot, right: 50 Y/O male with poorly controlled DM and peripheral neuropathy presenting with swelling and pain of RLE following a puncture wound from a marisol thumb tack. Cellulitis of the right foot -Patient afebrile, HD stable, no evidence of systemic infection. -X-ray of right foot shows soft tissue gas corresponding to location of injury unchanged since admission. -Ankle MRI shows no evidence of osteomyelitis or abscess. -No clinical evidence of necrotizing fasciitis or ascending infection. -Doppler ultrasound was negative. -Given tetanus in the ER. -Continue Daptomycin and Zosyn -Prior history of MRSA infection. -Uncontrolled Diabetes with poor vascular perfusion. -Unknown duration of wound. -Line of erythema marked and will monitor for progression. -Mild improvement from previous day. -Tylenol PRN fever/pain -Tramadol PRN pain -General Surgery consulted -Continue medical management with IV antibiotics. No plans for surgery at present. -Wound care consulted Type 2 diabetes mellitus with neurological manifestations uncontrolled -Patient with poorly controlled DM. -He does not take his metformin regularly. His recent home morning blood sugars have been in the 400s. -HgbA1c =13.5 -Basal-Bolus insulin during inpatient stay. Lantus increased today based on elevated morning BSG. Basal: Lantus 75 units SQ daily Bolus: NovoLog per scale ACHS or Q6hrs while NPO Goal Range: Low 110 mg/dL - High 140 mg/dL Correction Factor: 10 mg/dL/unit Nutritional / Prandial insulin per carb ratio of 1 unit per 3 grams CHO consumed -Glycemic management consultation appreciated -Diabetes education Chronic kidney disease -BUN (51) and Cr (2.68), continuing to rise. Up from BUN(32) and Cr(1.87) on admission. -Monitor BUN, Cr, electrolytes, and UOP -Hold Bumex -Avoid nephrotoxic agents -Renal dosing where needed Constipation -Has not had BM since admission. Is passing gas. -Start miralax 51mg Hypoxia Chronic -Most likely due to obesity hypoventilation syndrome -Obtain overnight pulse oximetry. -Obtain morning blood gas. Hypertension Blood pressure stable -Continue Carvedilol and Lisinopril -Continue to monitor BP Chronic diastolic CHF Patient appears mildly volume overloaded, received extra IV 1 mg of Bumex in the ED with resolution of symptoms -Monitor I/Os, weights -Hold home dose - Bumex 2mg po daily due to stress on kidneys Dyslipidemia Chronic -Statin on hold while on Daptomycin CAD Patient denies chest pain -Continue ASA 81mg po daily -Continue Carvedilol 6.25mg po BID -Continue Lisinopril -Statin on hold while on Daptomycin GERD Chronic -Continue Protonix 40mg po q AM FEN: AHA diet/DM2 Code Status: Full code DVT PPX: Lovenox PT/OT: Not indicated at present Dispo: Med telemetry (2) Hypertension: Hypertension type: essential hypertension Qualified Code(s): I10 - Essential (primary) hypertension (3) Puncture wound of foot, right: Encounter type: initial encounter Qualified Code(s): S91.331A - Puncture wound without foreign body, right foot, initial encounter (4) Chronic kidney disease: Chronic kidney disease stage: unspecified stage Qualified Code(s): N18.9 - Chronic kidney disease, unspecified (5) Dyslipidemia: (6) Chronic diastolic CHF (congestive heart failure): (7) CAD (coronary artery disease): Associated angina: without angina Coronary Disease-Associated Artery/Lesion type: [place] artery [place] vs. transplanted heart: [place] heart Qualified Code(s): I25.10 - Atherosclerotic heart disease of [place] coronary artery without angina pectoris (8) GERD (gastroesophageal reflux disease): Esophagitis presence: esophagitis presence not specified Qualified Code(s): K21.9 - Gastro-esophageal reflux disease without esophagitis Admission and Anticipated Discharge Date Admission Date: December 14, 2020 Supervising Attestation I personally examined the patient and verified all lynn points of history and exam, discussed case, and agree with decision making with Penny Pascal MS2 feeling ok. continued to educate on DM management/control. he expressed good understanding. Vitals noted, in general he is awake and alert pleasant no distress. HEENT normocephalic atraumatic mucous membranes moist. Breathing unlabored no accessory muscle use good effort. Skin shows area of puncture wound with a little bit of dull dusky area around the ulceration, no exudate no crepitus, very similar to yesterday. the rest of his foot shows a little bit of erythema that is outlined and receding/fading to blotchy w scattered petechiae, no crepitus or fluctuance, on that side his barr is slightly more swollen, but seems to be reactive given that it is not erythematous or tender. Foot cellulitisrelated to puncture wound and uncontrolled diabetes, undoubtedly did not notice the tach due to his dense neuropathy. Continue MRSA and Pseudomonas coverage given uncontrolled diabetes, probable poor vascular flow, and unknown duration of wound. Continue local wound care. hopefully home soon on PO abx Uncontrolled type 2 diabetescontinuing to try to lay a foundation of education on "why to care" discussing hyperglycemia induced microvascular ischemia. he is much more receptive today. ARF on CKDholding diuretics. Follow. probably plateauing asymptomatic relative hypoxia - likley GULSHAN/OHS. will try to educate on this as well. overnight pulse ox/AM blood gas to r/o severe OHS that would require treatment prior to sleep study/etc Otherwise as above Subjective Pt is in bed in no acute distress. He reports no pain or discomfort, although never truly had pain due to significant neuropathy. Has been tolerating meals. No fever/chills overnight. He has no concerns about his current condition. Glycemic control at home continues to be encouraged. He has not yet had a BM in the hospital, despite receiving Metamucil x2 yesterday. He says it is normal for him to go several days without a BM. We had a discussion with him about his diet and glycemic control in the setting of his uncontrolled diabetes. He was open to discussion and seems to understand lifestyle factors that he needs to change. Review of Systems Constitutional: no fever, no chills and no sweats Ear, Nose, Mouth, Throat: + nasal congestion; no dizziness, no facial pain, no sinus pain/pressure and no sore throat Respiratory: + cough; no dyspnea, no pain with cough and no wheezing Cardiovascular: + edema; no chest pain, no dyspnea and no lightheadedness Gastrointestinal: + constipation; no abdominal pain, no nausea and no vomiting Musculoskeletal: + swelling; no radicular pain and no joint pain Integumentary: + wounds, + erythema and + skin swelling Neurologic: + loss of sensation and + numbness; no generalized weakness and no dizziness Physical Exam Constitutional: + morbidly obese and cooperative; no acute distress Eyes: PERRL, conjunctivae normal, anicteric sclerae ENMT: external ear and nose normal, oropharynx normal Neck: trachea midline, no thyromegaly Respiratory: normal respiratory effort, lungs clear to auscultation + cough Cardiovascular: Rate/Rhythm: regular rate and regular rhythm Heart Sounds: no murmur and no cardiac rub Vessels: posterior tibial pulses present (weak) and dorsalis pedis pulses present (weak) Extremities: normal capillary refill and + pedal edema Gastrointestinal (Abdomen): Inspection/Auscultation: abdomen normal to inspection and + hypoactive bowel sounds Percussion/Palpation: abdomen soft; abdomen nontender Musculoskeletal: no cyanosis or clubbing, extremities motor strength 5/5 Extremities: extremities normal to inspection and strength 5/5 throughout; no cyanosis Ankle: + skin erythema Skin: + wound, + dry skin and + erythema Trauma: + puncture Skin shows dusky area around the puncture wound. The foot remains erythematous with the outline of erythema showing mild improvement. No crepitus. Erythema on the calf has lessened. Neurologic: PERRL, EOMI, accommodation nl, no face palsy, no dysarthria moves all extremities Motor/Sensory: + sensory deficit Psychiatric: A+Ox3, euthymic affect Lymphatic: no cervical or axillary lymphadenopathy Results & Data ([facility]) Vital Signs (Past 12 Hours) Vital Signs Temp Pulse Pulse Pulse Resp BP Pulse Ox 12/17/20 07:27 37.2 C 80 18 108/69 91 12/17/20 07:00 82 12/17/20 03:34 37.2 C 88 24 110/64 89 L 12/16/20 23:00 37.2 C 84 18 102/61 91
--- NOTE | 2020-12-17 13:23 | Pharmacy Report ---
Pharmacy Glycemic Short Note 2 - Date of Service December 17, 2020 - Glycemic Short BSG Results (Last 24 hours): 12/16/20 12/16/20 12/17/20 16:36 20:18 07:18 Glucose 178 H POC Glucose 165 H 162 H 12/17/20 12/17/20 07:18 11:56 Glucose POC Glucose 186 H 252 H OUTPATIENT ANTIDIABETIC REGIMEN: * Basaglar 60 units SQ AM * Humalog 10 units SQ TID ASSESSMENT: 12/17/20: * Fasting BSG improved, but still above goal this morning. Lantus increased. * Pre-lunch BSG elevated, so Novolog parameters tightened to provide additional carb coverage. * Will continue to adjust as needed. 12/16 * Improvement in BSGs after Novolog adjustments yesterday. * Fasting BSG elevated this morning, so Lantus was increased. * Will continue to follow and adjust as necessary. 12/15 * 50 year old obese male admitted for cellulitis of foot, found thumb tack in bottom of foot, unknown how long it was there, surgery consulted, no surgery planned at this time, on IV antibiotics. * Admitted with hyperglycemia, received 10 units IV regular insulin x2, 37 units SQ NovoLog, 40 units Lantus, and blood sugar came down to 193mg/dl * A1c pending, on basal bolus at home, will use as inpatient and titrate to goal blood sugar PLAN FOR INPATIENT GLYCEMIC CONTROL: * Basal insulin * Lantus 80 units SQ daily * Bolus insulin * NovoLog per scale ACHS or Q6hrs while NPO * Goal Range: Low 110 mg/dL - High 140 mg/dL * Correction Factor: 10 mg/dL/unit * Nutritional / Prandial insulin per carb ratio of 1 unit per 2.5 grams CHO consumed
[2020-12-17] MEDS ORDERED: POTASSIUM CHLORIDE CRTAB 20 MEQ TABCR PO SCH (14:00)
--- NOTE | 2020-12-17 19:02 | Billing Data ---
Date of Service December 17, 2020 Coding Level of Care Code 40744 Subseq Hosp Care Lvl 3
[2020-12-18] MEDS: DAPTOmycin 400 MG in SYRINGE 0 ML IV SCH (04:49)
[2020-12-18] MEDS: PIPERACILLIN/TAZOBACTAM 4.5 GM in DEXTROSE 5% 100 ML IV SCH ×3 (04:49→20:48)
[2020-12-18 06:12] LABS: Base Excess ABG 4.2 mEq/L (-9-1.8); HCO3 ABG 26 mmol/L (19-24); PCO2 ABG 30 mmHg (35-46); PO2 ABG 54 mmHg (80-95)
[2020-12-18 06:19] LABS: Allen Test Pos (Pos)
[2020-12-18 06:21] LABS: pH ABG 7.56 (7.35-7.45)
[2020-12-18] MEDS: ENOXAPARIN INJ 40 MG/0.4 ML SYR SQ SCH ×2 (08:17→20:49)
[2020-12-18] MEDS: ASPIRIN 81 MG ECTAB PO SCH (08:17)
[2020-12-18] MEDS: INSULIN ASPART 100 UNITS/ML 3 ML PEN SC SCH ×4 (08:17→20:59)
[2020-12-18] MEDS: lisinopril 5 MG TAB PO SCH (08:17)
[2020-12-18] MEDS: carvediloL 6.25 MG TAB PO SCH ×2 (08:17→20:50)
[2020-12-18] MEDS: PANTOprazole 40 MG TAB PO SCH (08:17)
[2020-12-18] MEDS: INSULIN GLARGINE SOLOSTAR 100 UNITS/ML 3 ML PEN SC SCH (08:19)
[2020-12-18] MEDS: PSYLLIUM 58.6% POWDER PACKET PO SCH (08:20)
[2020-12-18] MEDS: ACETAMINOPHEN 325 MG TAB PO PRN ×2 (08:25→20:06)
[2020-12-18 09:15] LABS: Basophils # (auto) 0.02 K/uL (0-0.2); Basophils % (auto) 0.2 %; Eosinophils # (auto) 0.09 K/uL (0-0.5); Eosinophils % (auto) 0.7 %; Hematocrit (blood only) 36.8 % (42-52); Hemoglobin 12.4 g/dL (14.0-18.0); Immature Granulocytes # (auto) 0.02 K/uL (0.00-0.02); Immature Granulocytes % (auto) 0.2 %; Lymphocytes # (auto) 1.09 K/uL (1.2-3.4); Lymphocytes % (auto) 8.9 %; Mean Corpuscular Hemoglobin 28.6 pg (25-34); Mean Corpuscular Hgb Conc 33.7 g/dL (32-36); Mean Platelet Volume 9.4 fL (7.4-10.4); Monocytes # (auto) 1.17 K/uL (0.11-0.59); Monocytes % (auto) 9.6 %; Neutrophils # (auto) 9.79 K/uL (1.4-6.5); Neutrophils % (auto) 80.4 %; Platelet Count 238 K/uL (130-400); RDW Standard Deviation 40.8 fL (36.4-46.3); Red Blood Count 4.33 M/uL (4.7-6.1); White Blood Count 12.18 K/uL (4.8-10.8)
[2020-12-18 09:50] LABS: BUN Creatinine Ratio 20.4 (10-20); Creatinine Clr Calc Pharmacy 59.6 ml/min; Est GFR (African American) 40.8 ml/min; Est GFR (Non-African American) 35.2 ml/min; Potassium 3.5 mmol/L (3.5-5.1)
--- NOTE | 2020-12-18 14:44 | Hospitalist Progress Note ---
Date of Service December 18, 2020 Assessment & Plan (1) Cellulitis of foot, right: #Cellulitis of the right foot 50yo male with poorly controlled DM, peripheral neuropathy presenting with swelling and pain of RLE following a puncture wound from a marisol thumb tack. Patient afebrile, HD stable, no evidence of systemic infection. X-ray of right foot with soft tissue gas corresponding to location of injury. No clinical evidence of necrotizing fasciitis or ascending infection. No evidence of bony involvement noted on X-ray. Doppler ultrasound was negative. Given tetanus in the ER. -Daptomycin and Zosyn -Prior history of MRSA infection -Monitor for progression of erythema -Outlined appears to be receding -Tylenol PRN fever/pain -Tramadol PRN pain -General Surgery consulted -Continue medical management with IV antibiotics -Wound care consulted -Worsening of known ulcer thought to be secondary to venous insufficiency -Follow-up repeat ankle x-ray -Orthopedic surgery consulted #Puncture wound right foot As above -Wound care -Antibiotics -Tetanus shot #Type 2 diabetes mellitus with neurological manifestations uncontrolled Patient with poorly controlled DM. Last A1C > 12. He reports not taking his medication regularly or checking his blood sugars lately. Markedly elevated BSG today at 650. No anion gap but BHB present at 8.56. Patient given 10u IV insulin in ER -Glycemic management consultation appreciated -Diabetes education #Chronic kidney disease BUN=33, Cr=1.87. on admission, -Avoid nephrotoxic agents -Renal dosing where needed #Hypertension Blood pressure stable -Continue Carvedilol and Lisinopril -Continue to monitor BP #Dyslipidemia Chronic -Statin on hold while on Daptomycin #Chronic diastolic CHF Patient appears mildly volume overloaded, received extra IV 1 mg of Bumex in the ED with resolution of symptoms -Monitor I/Os, weights -Continue home dose - Bumex 2mg po daily #CAD Patient denies chest pain -Continue ASA 81mg po daily -Continue Carvedilol 6.25mg po BID -Continue Lisinopril -Statin on hold while on Daptomycin #GERD Chronic -Continue Protonix 40mg po q AM FENa: AHA diet/DM2 Code Status: Full code DVT PPX: Lovenox PT/OT: Ordered Dispo: Med telemetry Peter Willard MD PGY 2, [facility] This chart was completed utilizing [employer] voice recognition software. Grammatical errors, random word insertions, pronoun errors, and in complete sentences are an occasional consequence of the system. Any questions or concerns about the content, text, or information contained within the body of this dictation should be addressed directly to the physician for clarification. (2) Puncture wound of foot, right: (3) Type 2 diabetes mellitus with neurological manifestations, uncontrolled: (4) Chronic kidney disease: (5) Hypertension: (6) Dyslipidemia: (7) Chronic diastolic CHF (congestive heart failure): (8) CAD (coronary artery disease): (9) GERD (gastroesophageal reflux disease): Admission and Anticipated Discharge Date Admission Date: December 14, 2020 Supervising Physician Co-Signing Physician Notes I personally examined the patient and verified all lynn points of history and exam, discussed case, and agree with decision making with Dr Willard. no pain but new ulcer on side of foot. Vitals noted, in general he is awake and alert pleasant no distress. HEENT normocephalic atraumatic mucous membranes moist. Breathing unlabored no accessory muscle use good effort. new ulcer medial side of heel, soft skin under, questionable very faint crepitis. Foot cellulitisrelated to puncture wound and uncontrolled diabetes, undoubtedly did not notice the tach due to his dense neuropathy. Continue MRSA and Pseudomonas coverage given uncontrolled diabetes, probable poor vascular flow, and unknown duration of wound. Continue local wound care. consult ortho as new area of worsening may need debridement. follow closely due to sudden worsening but through today nothing evolving to appear c/w necrotizing fasciitis. Xray to eval for any new areas of gas/progression of gas. not septic now. Uncontrolled type 2 diabetescontinuing to try to lay a foundation of education on "why to care" discussing hyperglycemia induced microvascular ischemia. has been more receptive. continue inpatient glycemic management (increase lantus today, continue log) ARF on CKD continue holding diuretics. Follow. improving again asymptomatic relative hypoxia - likley GULSHAN/OHS. overngith pulse ox as expected, AM ABG showed hyperventillation picture with no clinical correlation. for now nocturnal O2, anticipate sleep study after discharge. Otherwise as above Subjective Patient lying in bed this morning eating breakfast in no acute distress. Patient denies any acute events overnight, specifically denying chest pressure chest pain, shortness of breath. Patient reports he has minimal feeling in his bilateral lower extremities. Acute concerns relate to worsening ulcer all questions answered. Physical Exam Physical Exam: General: Sitting up in his chair no acute distress HEENT: Normocephalic atraumatic Neck: Normal vision inspection Cardiac: Regular rate and rhythm I did not appreciate significant murmurs rubs or gallops, normal S1, normal S2, 1+ pedal edema bilaterally Respiratory: Clear to auscultation bilaterally with symmetrical chest expansion I did not appreciate significant wheezes, rales, rhonchi GI: Distended abdomen, nontender to palpation, bowel sounds present MSK: Moves all extremities minimal sensations bilateral lower extremities Skin: Worsening of known ulcer on his lower extremity, thumbtack penetration injury is improving Results & Data Results & Data ([facility]) Vital Signs (Past 12 Hours) Vital Signs Temp Pulse Pulse Pulse Pulse Resp BP 12/18/20 14:38 36.9 C 82 18 157/81 H 12/18/20 11:30 36.8 C 82 18 160/83 H 12/18/20 07:53 37.6 C H 91 H 25 H 180/82 H 12/18/20 07:00 93 H 12/18/20 05:55 96 H 12/18/20 04:00 36.8 C 90 18 152/63 H Pulse Ox Pulse Ox 12/18/20 14:38 92 12/18/20 11:30 92 12/18/20 07:53 93 12/18/20 07:00 12/18/20 05:55 94 12/18/20 04:00 93 Laboratory Results 12/18/20 12/18/20 12/18/20 Range/Units 13:50 11:23 08:57 WBC (4.8-10.8) K/uL RBC (4.7-6.1) M/uL Hgb (14.0-18.0) g/dL Hct (42-52) % MCV (80-100) fL MCH (25-34) pg MCHC (32-36) g/dL RDW Std Deviation (36.4-46.3) fL RDW Coeff of Soledad (11.5-14.5) % Plt Count (130-400) K/uL MPV (7.4-10.4) fL Immature Gran % (Auto) % Neut % (Auto) % Lymph % (Auto) % Wilcox % (Auto) % Eos % (Auto) % Baso % (Auto) % Neut # (Auto) (1.4-6.5) K/uL Lymph # (Auto) (1.2-3.4) K/uL Wilcox # (Auto) (0.11-0.59) K/uL Eos # (Auto) (0-0.5) K/uL Baso # (Auto) (0-0.2) K/uL Immature Gran # (Auto) (0.00-0.02) K/uL ABG pH (7.35-7.45) ABG pCO2 (35-46) mmHg ABG pO2 (80-95) mmHg ABG HCO3 (19-24) mmol/L ABG O2 Saturation (90-95) % ABG Base Excess (-9-1.8) mEq/L Ezequiel Test (Pos) Oxygen Given Sodium 130 L (136-145) mmol/L Potassium 3.5 (3.5-5.1) mmol/L Chloride 95 L (98-107) mmol/L Carbon Dioxide 24 (21-32) mmol/L Anion Gap 11.0 (3-11) BUN 43 H (7-18) mg/dl Creatinine 2.12 H D (0.6-1.4) mg/dl Est Cr Clr Drug Dosing 59.6 ml/min Est GFR ( Amer) 40.8 ml/min Est GFR (Non-Af Amer) 35.2 ml/min BUN/Creatinine Ratio 20.4 H (10-20) Glucose 178 H (70-99) mg/dl POC Glucose 258 H (70-99) mg/dl Calcium 9.0 (8.5-10.1) mg/dl Stl C. diff Tox B Gene Negative Cdiff Gene (Neg) 12/18/20 12/18/20 12/18/20 Range/Units 08:57 07:31 05:57 WBC 12.18 H (4.8-10.8) K/uL RBC 4.33 L (4.7-6.1) M/uL Hgb 12.4 L (14.0-18.0) g/dL Hct 36.8 L (42-52) % MCV 85.0 (80-100) fL MCH 28.6 (25-34) pg MCHC 33.7 (32-36) g/dL RDW Std Deviation 40.8 (36.4-46.3) fL RDW Coeff of Soledad 13.0 (11.5-14.5) % Plt Count 238 (130-400) K/uL MPV 9.4 (7.4-10.4) fL Immature Gran % (Auto) 0.2 % Neut % (Auto) 80.4 % Lymph % (Auto) 8.9 % Wilcox % (Auto) 9.6 % Eos % (Auto) 0.7 % Baso % (Auto) 0.2 % Neut # (Auto) 9.79 H (1.4-6.5) K/uL Lymph # (Auto) 1.09 L (1.2-3.4) K/uL Wilcox # (Auto) 1.17 H (0.11-0.59) K/uL Eos # (Auto) 0.09 (0-0.5) K/uL Baso # (Auto) 0.02 (0-0.2) K/uL Immature Gran # (Auto) 0.02 (0.00-0.02) K/uL ABG pH 7.56 H* (7.35-7.45) ABG pCO2 30 L (35-46) mmHg ABG pO2 54 L (80-95) mmHg ABG HCO3 26 H (19-24) mmol/L ABG O2 Saturation 92.0 (90-95) % ABG Base Excess 4.2 H (-9-1.8) mEq/L Ezequiel Test Pos (Pos) Oxygen Given RA Sodium (136-145) mmol/L Potassium (3.5-5.1) mmol/L Chloride (98-107) mmol/L Carbon Dioxide (21-32) mmol/L Anion Gap (3-11) BUN (7-18) mg/dl Creatinine (0.6-1.4) mg/dl Est Cr Clr Drug Dosing ml/min Est GFR ( Amer) ml/min Est GFR (Non-Af Amer) ml/min BUN/Creatinine Ratio (10-20) Glucose (70-99) mg/dl POC Glucose 163 H (70-99) mg/dl Calcium (8.5-10.1) mg/dl Stl C. diff Tox B Gene (Neg) 12/17/20 12/17/20 Range/Units 20:04 16:28 WBC (4.8-10.8) K/uL RBC (4.7-6.1) M/uL Hgb (14.0-18.0) g/dL Hct (42-52) % MCV (80-100) fL MCH (25-34) pg MCHC (32-36) g/dL RDW Std Deviation (36.4-46.3) fL RDW Coeff of Soledad (11.5-14.5) % Plt Count (130-400) K/uL MPV (7.4-10.4) fL Immature Gran % (Auto) % Neut % (Auto) % Lymph % (Auto) % Wilcox % (Auto) % Eos % (Auto) % Baso % (Auto) % Neut # (Auto) (1.4-6.5) K/uL Lymph # (Auto) (1.2-3.4) K/uL Wilcox # (Auto) (0.11-0.59) K/uL Eos # (Auto) (0-0.5) K/uL Baso # (Auto) (0-0.2) K/uL Immature Gran # (Auto) (0.00-0.02) K/uL ABG pH (7.35-7.45) ABG pCO2 (35-46) mmHg ABG pO2 (80-95) mmHg ABG HCO3 (19-24) mmol/L ABG O2 Saturation (90-95) % ABG Base Excess (-9-1.8) mEq/L Ezequiel Test (Pos) Oxygen Given Sodium (136-145) mmol/L Potassium (3.5-5.1) mmol/L Chloride (98-107) mmol/L Carbon Dioxide (21-32) mmol/L Anion Gap (3-11) BUN (7-18) mg/dl Creatinine (0.6-1.4) mg/dl Est Cr Clr Drug Dosing ml/min Est GFR ( Amer) ml/min Est GFR (Non-Af Amer) ml/min BUN/Creatinine Ratio (10-20) Glucose (70-99) mg/dl POC Glucose 228 H 284 H (70-99) mg/dl Calcium (8.5-10.1) mg/dl Stl C. diff Tox B Gene (Neg) Medications Administered Current Inpatient Medications Acetaminophen (Acetaminophen 325 Mg Tab) 650 mg PO Q4H PRN PRN Reason: pain/fever Stop: 01/13/21 21:10 Last Admin: 12/18/20 08:25 Dose: 650 mg Documented by: Aspirin (Aspirin 81 Mg Ectab) 81 mg PO QAM STEVE Stop: 01/14/21 08:59 Last Admin: 12/18/20 08:17 Dose: 81 mg Documented by: Bumetanide (Bumetanide 1 Mg Tab) 2 mg PO DAILY STEVE Stop: 01/14/21 08:59 Last Admin: 12/16/20 09:08 Dose: 2 mg Documented by: Carvedilol (Carvedilol 6.25 Mg Tab) 6.25 mg PO BID STEVE Stop: 01/13/21 21:10 Last Admin: 12/18/20 08:17 Dose: 6.25 mg Documented by: Dextrose (Dextrose 50% 50 Ml Syringe) 25 - 50 ml IV UD PRN; Protocol PRN Reason: Hypoglycemia Protocol Stop: 01/13/21 21:10 Docusate Sodium (Docusate Sodium 100 Mg Cap) 100 mg PO BID PRN PRN Reason: Constipation Stop: 01/13/21 21:10 Enoxaparin Sodium (Enoxaparin Inj 40 Mg/0.4 Ml Syr) 40 mg SQ Q12H STEVE Stop: 01/14/21 08:59 Last Admin: 12/18/20 08:17 Dose: Not Given Documented by: Glucagon (Glucagon For Inj 1 Mg Vial) 1 mg SQ UD PRN; Protocol PRN Reason: Hypoglycemia Protocol Stop: 01/13/21 21:10 Glucose (Glucose 10 Tabs/Tube) 4 - 8 tabs PO UD PRN; Protocol PRN Reason: Hypoglycemia Protocol Stop: 01/13/21 21:10 Glucose (Glucose 40% Gel 15 Gm Tube) 15 - 30 gm PO UD PRN; Protocol PRN Reason: Hypoglycemia Protocol Stop: 01/13/21 21:10 Piperacillin Sod/Tazobactam (Sod 4.5 gm/ Dextrose) 120 mls @ 30 mls/hr IV Q8H STEVE; Protocol Stop: 12/22/20 03:59 Last Admin: 12/18/20 14:07 Dose: 30 mls/hr Documented by: Daptomycin 400 mg/ Syringe 8 mls @ 4 mls/min IV Q24H STEVE; Protocol Stop: 12/22/20 03:59 Last Admin: 12/18/20 04:49 Dose: 4 mls/min Documented by: Insulin Aspart (Insulin Aspart 100 Units/Ml 3 Ml Pen) 0 units SC ACHS [facility]; Protocol Stop: 01/13/21 21:44 Last Admin: 12/18/20 12:48 Dose: 30 units Documented by: Insulin Glargine (Insulin Glargine Solostar 100 Units/Ml 3 Ml Pen) 80 units SC DAILY [facility]; Protocol Stop: 01/16/21 08:59 Last Admin: 12/18/20 08:19 Dose: 80 units Documented by: Lisinopril (Lisinopril 5 Mg Tab) 5 mg PO DAILY [facility] Stop: 01/14/21 08:59 Last Admin: 12/18/20 08:17 Dose: 5 mg Documented by: Miscellaneous (Carbohydrates For Hypoglycemia ) 15 - 30 gm PO UD PRN PRN Reason: Hypoglycemia Protocol Stop: 01/13/21 21:10 Miscellaneous Information (Pharmacy Glycemic Mgmt Consult) 1 ea N/A UD PRN; Protocol PRN Reason: Consult Stop: 01/13/21 21:24 Miscellaneous Information (Piperacill/Tazobac Consult Active) 1 ea N/A UD PRN PRN Reason: Consult Stop: 01/13/21 21:10 Miscellaneous Information (Daptomycin Consult Active) 1 ea N/A UD PRN PRN Reason: Consult Stop: 01/13/21 21:10 Ondansetron HCl (Ondansetron Inj 2 Mg/Ml 2 Ml Vial) 4 mg IV Q6H PRN PRN Reason: Nausea Stop: 01/13/21 21:10 Pantoprazole Sodium (Pantoprazole 40 Mg Tab) 40 mg PO QAM [facility] Stop: 01/14/21 08:59 Last Admin: 12/18/20 08:17 Dose: 40 mg Documented by: Psyllium Hydrophilic Mucilloid (Psyllium 58.6% Powder Packet) 1 pkt PO QAM [facility] Stop: 01/14/21 08:59 Last Admin: 12/18/20 08:20 Dose: 1 pkt Documented by: Tramadol HCl (Tramadol Hcl 50 Mg Tablet) 50 mg PO BID PRN PRN Reason: pain Stop: 01/13/21 21:10 Last Admin: 12/16/20 16:09 Dose: 50 mg Documented by: Resident Activity Tracking Resident Involvement: Resident Care Provided Care Provided: Adult Hospital Medicine (1) CAD (coronary artery disease) Associated angina: without angina Coronary Disease-Associated Artery/Lesion type: [place] artery [place] vs. transplanted heart: [place] heart Qualified Code(s): I25.10 - Atherosclerotic heart disease of [place] coronary artery without angina pectoris (2) Chronic kidney disease Chronic kidney disease stage: unspecified stage Qualified Code(s): N18.9 - Chronic kidney disease, unspecified (3) GERD (gastroesophageal reflux disease) Esophagitis presence: esophagitis presence not specified Qualified Code(s): K21.9 - Gastro-esophageal reflux disease without esophagitis (4) Hypertension Hypertension type: essential hypertension Qualified Code(s): I10 - Essential (primary) hypertension (5) Puncture wound of foot, right Encounter type: initial encounter Qualified Code(s): S91.331A - Puncture wound without foreign body, right foot, initial encounter
[2020-12-18] MEDS: LOPERAMIDE HCL 2 MG CAP PO PRN (17:01)
--- NOTE | 2020-12-18 17:13 | Billing Data ---
Date of Service December 18, 2020 Coding Level of Care Code 94048 Subseq Hosp Care Lvl 3
--- NOTE | 2020-12-18 17:23 | XRay Report ---
XR foot RT min 3V routine CLINICAL HISTORY: Evaluate subcutaneous gas, right foot infection COMPARISON STUDY: Right ankle MRI 12/15/2020 and right foot radiograph 12/15/2020. FINDINGS: Slight improvement within the collection of subcutaneous gas within the plantar surface of the heel. There is an overlying skin ulceration. No underlying bony destruction to suggest osteomyeli tis. Large plantar and posterior calcaneal spurs are noted. There is diffuse soft tissue swelling wit hin the foot. No fractures. Vascular calcifications are noted. IMPRESSION: Slight improvement within the collection of subcutaneous gas within the plantar surface of the heel. No underlying bony destruction to suggest an osteomyelitis. ACT 112: Negative or not required by law. Electronically signed by: Sebastián Moon M.D. 12/18/2020 5:22 PM
[2020-12-18] MEDS ORDERED: INSULIN GLARGINE SOLOSTAR 100 UNITS/ML 3 ML PEN SC SCH (21:00)
[2020-12-19] MEDS: PIPERACILLIN/TAZOBACTAM 4.5 GM in DEXTROSE 5% 100 ML IV SCH ×3 (03:24→20:07)
[2020-12-19] MEDS: DAPTOmycin 400 MG in SYRINGE 0 ML IV SCH (03:24)
[2020-12-19] MEDS: lisinopril 5 MG TAB PO SCH (08:01)
[2020-12-19] MEDS: carvediloL 6.25 MG TAB PO SCH ×2 (08:01→20:15)
[2020-12-19] MEDS: PSYLLIUM 58.6% POWDER PACKET PO SCH ×2 (08:02→08:03)
[2020-12-19] MEDS: PANTOprazole 40 MG TAB PO SCH (08:02)
[2020-12-19] MEDS: ASPIRIN 81 MG ECTAB PO SCH (08:02)
[2020-12-19] MEDS: INSULIN ASPART 100 UNITS/ML 3 ML PEN SC SCH ×2 (08:04→12:12)
[2020-12-19] MEDS: ENOXAPARIN INJ 40 MG/0.4 ML SYR SQ SCH ×2 (08:08→20:15)
[2020-12-19] MEDS: LOPERAMIDE HCL 2 MG CAP PO PRN (08:14)
[2020-12-19] MEDS ORDERED: INSULIN GLARGINE SOLOSTAR 100 UNITS/ML 3 ML PEN SC SCH ×2 (09:00→21:00)
[2020-12-19 09:32] LABS: Basophils # (auto) 0.03 K/uL (0-0.2); Basophils % (auto) 0.3 %; Eosinophils # (auto) 0.11 K/uL (0-0.5); Eosinophils % (auto) 1.1 %; Hematocrit (blood only) 38.1 % (42-52); Hemoglobin 12.8 g/dL (14.0-18.0); Immature Granulocytes # (auto) 0.03 K/uL (0.00-0.02); Immature Granulocytes % (auto) 0.3 %; Lymphocytes # (auto) 1.03 K/uL (1.2-3.4); Lymphocytes % (auto) 10.5 %; Mean Corpuscular Hemoglobin 28.9 pg (25-34); Mean Corpuscular Hgb Conc 33.6 g/dL (32-36); Mean Platelet Volume 9.4 fL (7.4-10.4); Monocytes # (auto) 0.38 K/uL (0.11-0.59); Monocytes % (auto) 3.9 %; Neutrophils # (auto) 8.22 K/uL (1.4-6.5); Neutrophils % (auto) 83.9 %; Platelet Count 264 K/uL (130-400); RDW Coefficient of Variation 13.1 % (11.5-14.5); RDW Standard Deviation 41.7 fL (36.4-46.3); Red Blood Count 4.43 M/uL (4.7-6.1)
--- NOTE | 2020-12-19 10:04 | Pharmacy Report ---
Pharmacy Glycemic Short Note 2 - Date of Service December 19, 2020 - Glycemic Short BSG Results (Last 24 hours): 12/18/20 12/18/20 12/18/20 11:23 16:21 19:49 POC Glucose 258 H 258 H 269 H 12/19/20 12/19/20 07:48 07:49 POC Glucose 331 H* 309 H* OUTPATIENT ANTIDIABETIC REGIMEN: * Basaglar 60 units SQ AM * Humalog 10 units SQ TID ASSESSMENT: 12/19/20: * Patient received total of 265 units of insulin yesterday, of which 140 units were basal insulin * Fasting BSG ~300 mg/dL? - called and spoke to patient over phone as insulin needs have doubled within the last day. He reports no snacking but has been drinking these packets he mixes with water. He did not seem sure what was in them but said they were low carb. May need to see ingredients to see if we need to be covering for if BSGs remain elevated. Patient also reports that when he received his "shots" last night in his arm, he mentioned that his arm was wet after. May utilize scale for HS Lantus dose. 12/17/20: * Fasting BSG improved, but still above goal this morning. Lantus increased. * Pre-lunch BSG elevated, so Novolog parameters tightened to provide additional carb coverage. * Will continue to adjust as needed. 12/16 * Improvement in BSGs after Novolog adjustments yesterday. * Fasting BSG elevated this morning, so Lantus was increased. * Will continue to follow and adjust as necessary. 12/15 * 50 year old obese male admitted for cellulitis of foot, found thumb tack in bottom of foot, unknown how long it was there, surgery consulted, no surgery planned at this time, on IV antibiotics. * Admitted with hyperglycemia, received 10 units IV regular insulin x2, 37 units SQ NovoLog, 40 units Lantus, and blood sugar came down to 193mg/dl * A1c pending, on basal bolus at home, will use as inpatient and titrate to goal blood sugar PLAN FOR INPATIENT GLYCEMIC CONTROL: * Basal insulin * Lantus 80 units SQ daily * Lantus 0-30 units HS * Bolus insulin * NovoLog per scale ACHS or Q6hrs while NPO * Goal Range: Low 110 mg/dL - High 140 mg/dL * Correction Factor: 6 mg/dL/unit * Nutritional / Prandial insulin per carb ratio of 1 unit per 1.5 grams CHO consumed
[2020-12-19 10:09] LABS: BUN Creatinine Ratio 16.9 (10-20); Creatinine Clr Calc Pharmacy 65.4 ml/min; Est GFR (Non-African American) 39.7 ml/min; Potassium 3.7 mmol/L (3.5-5.1)
[2020-12-19 10:21] LABS: Beta-Hydroxybutyrate 5.12 mg/dl (0.2-2.81)
--- NOTE | 2020-12-19 10:55 | Medical Student Progress Note ---
Date of Service December 19, 2020 Assessment & Plan (1) Cellulitis of foot, right: 50 Y/O male with poorly controlled DM and peripheral neuropathy presenting with swelling and pain of RLE following a puncture wound from a marisol thumb tack. Cellulitis of the right foot -New opened ulcer on the lateral aspect of the right foot -Patient afebrile, HD stable, no evidence of systemic infection. -X-ray of right foot shows soft tissue gas corresponding to location of injury unchanged since admission. -X-ray on 12/19 shows slight improvement of subcutaneous gas. -Ankle MRI shows no evidence of osteomyelitis or abscess. -No clinical evidence of necrotizing fasciitis or ascending infection. -Doppler ultrasound was negative. -Given tetanus in the ER. -Continue Daptomycin and Zosyn -Prior history of MRSA infection. -Line of erythema marked and will monitor for progression. -Improvement from previous day. -Significant improvement of erythema at the ankle -Tylenol PRN fever/pain -Tramadol PRN pain -General Surgery consulted -Continue medical management with IV antibiotics. No plans for surgery at present. -Wound care consulted -Worsening of known ulcer thought to be secondary to venous insufficiency -Follow-up repeat ankle x-ray shows improvement of subcutaneous gas and no evidence of osteomyelitis -Orthopedic Surgery Consulted -They would like to debride the wound tomorrow - unsure if this would be at the bedside or in the OR. -NPO at midnight in case of debridement in OR. Type 2 diabetes mellitus with neurological manifestations uncontrolled -Patient with poorly controlled DM. -He does not take his metformin regularly. His recent home morning blood sugars have been in the 400s. -HgbA1c =13.5 -Morning BSG was 303 -Basal-Bolus insulin during inpatient stay. Pharmacy is adjusting doses based on morning BSGs. -Hyperglycemia secondary to inflammatory response. -Glycemic management consultation appreciated -Diabetes education Chronic kidney disease -BUN (32) and Cr (1.92), values continue to normalize -Monitor BUN, Cr, electrolytes -Hold Bumex -Avoid nephrotoxic agents -Renal dosing where needed Constipation -Resolved -Had a BM. -Continue miralax Hypoxia Chronic -Most likely due to obesity hypoventilation syndrome -Overnight pulse oximetry shows high (98), low (46), mean (89) -Morning blood gas shows respiratory alkalosis. Hypertension Blood pressure stable -Continue Carvedilol and Lisinopril -Continue to monitor BP Chronic diastolic CHF Patient appears mildly volume overloaded, received extra IV 1 mg of Bumex in the ED with resolution of symptoms -Monitor I/Os, weights -Hold home dose - Bumex 2mg po daily due to stress on kidneys Dyslipidemia Chronic -Statin on hold while on Daptomycin CAD Patient denies chest pain -Continue ASA 81mg po daily -Continue Carvedilol 6.25mg po BID -Continue Lisinopril -Statin on hold while on Daptomycin GERD Chronic -Continue Protonix 40mg po q AM FEN: AHA diet/DM2 Code Status: Full code DVT PPX: Lovenox PT/OT: Not indicated at present Dispo: Med telemetry (2) Hypertension: Hypertension type: essential hypertension Qualified Code(s): I10 - Essential (primary) hypertension (3) Puncture wound of foot, right: Encounter type: initial encounter Qualified Code(s): S91.331A - Puncture wound without foreign body, right foot, initial encounter (4) Chronic kidney disease: Chronic kidney disease stage: unspecified stage Qualified Code(s): N18.9 - Chronic kidney disease, unspecified (5) Dyslipidemia: (6) Chronic diastolic CHF (congestive heart failure): (7) CAD (coronary artery disease): Associated angina: without angina Coronary Disease-Associated Artery/Lesion type: [place] artery [place] vs. transplanted heart: [place] heart Qualified Code(s): I25.10 - Atherosclerotic heart disease of [place] coronary artery without angina pectoris (8) GERD (gastroesophageal reflux disease): Esophagitis presence: esophagitis presence not specified Qualified Code(s): K21.9 - Gastro-esophageal reflux disease without esophagitis Admission and Anticipated Discharge Date Admission Date: December 14, 2020 Supervising Attestation I personally examined the patient and verified all lynn points of history and exam, discussed case, and agree with decision making with Penny KELLY. Still no pain. Therefore his foot feels the same to him. Seen in conjunction with orthopedicsdebridement will be necessary. No other new issues. Vitals noted, in general he is awake and alert pleasant no distress. HEENT normocephalic atraumatic mucous membranes moist. Breathing unlabored no accessory muscle use good effort. Foot now with medial ulcer, lateral softness, and a large area of slough. Fortunately no tracking erythema. Foot cellulitisrelated to puncture wound and uncontrolled diabetes, undoubtedly did not notice the tack due to his dense neuropathy. Continue MRSA and Pseudomonas coverage given uncontrolled diabetes, probable poor vascular flow, and unknown duration of wound. Continue local wound care. Anticipate debridement, then probably home on p.o. antibiotics and outpatient wound care once orthopedics feels it is stable to do so. Uncontrolled type 2 diabeteshe was a little more frustrated with his situation, and therefore somewhat refractory to ongoing education, but we tried to reiterate the important points. ARF on CKD continue holding diuretics. Is showing improvement. asymptomatic relative hypoxia - likley GULSHAN/OHS. overngith pulse ox as expected, AM ABG showed hyperventilation picture with no clinical correlation. for now nocturnal O2, anticipate sleep study after discharge. Otherwise as above Subjective Pt is in bed in no acute distress. He reports no pain or discomfort, although never truly had pain due to significant neuropathy. Has been tolerating meals. No fever/chills overnight. He has no concerns about his current condition. We had a discussion with him about his diet and glycemic control in the setting of his uncontrolled diabetes. Glycemic control at home continues to be encouraged. He reiterated that he understands that he needs to make changes to his lifestyle, although he has a difficult time stating why glycemic control is important. He had a BM after being given the Miralax. He is unsure how the new ulcer opened up. He does not recall any trauma to the foot over the last two days. Review of Systems Ear, Nose, Mouth, Throat: + nasal congestion; no dizziness, no facial pain, no sinus pain/pressure and no sore throat Respiratory: + cough; no dyspnea, no pain with cough and no wheezing Cardiovascular: + edema; no chest pain, no dyspnea and no lightheadedness Gastrointestinal: + constipation; no abdominal pain, no nausea and no vomiting Musculoskeletal: + swelling; no radicular pain and no joint pain Integumentary: + wounds, + erythema and + skin swelling Neurologic: + loss of sensation and + numbness; no generalized weakness and no dizziness Physical Exam Constitutional: + morbidly obese and cooperative; no acute distress Eyes: PERRL, conjunctivae normal, anicteric sclerae ENMT: external ear and nose normal, oropharynx normal Neck: trachea midline, no thyromegaly Respiratory: normal respiratory effort, lungs clear to auscultation + cough Cardiovascular: Rate/Rhythm: regular rate and regular rhythm Heart Sounds: no murmur and no cardiac rub Vessels: posterior tibial pulses present (weak) and dorsalis pedis pulses present (weak) Extremities: normal capillary refill and + pedal edema Gastrointestinal (Abdomen): normal bowel sounds, soft, nontender, no hepatosplenomegaly Inspection/Auscultation: abdomen normal to inspection and + hypoactive bowel sounds Percussion/Palpation: abdomen soft; abdomen nontender Musculoskeletal: no cyanosis or clubbing, extremities motor strength 5/5 Extremities: extremities normal to inspection and strength 5/5 throughout; no cyanosis Ankle: + skin erythema Skin: + wound, + dry skin and + erythema Trauma: + puncture Neurologic: PERRL, EOMI, accommodation nl, no face palsy, no dysarthria moves all extremities Motor/Sensory: + sensory deficit Psychiatric: A+Ox3, euthymic affect Lymphatic: no cervical or axillary lymphadenopathy Results & Data ([facility]) Vital Signs (Past 12 Hours) Vital Signs Temp Pulse Pulse Resp BP Pulse Ox 12/19/20 07:25 37.0 C 79 18 145/75 H 93 12/19/20 07:00 81 12/19/20 04:23 36.8 C 81 18 135/64 94 12/19/20 00:57 81
--- NOTE | 2020-12-19 15:47 | Billing Data ---
Date of Service December 19, 2020 Coding Level of Care Code 15946 Subseq Hosp Care Lvl 3
--- NOTE | 2020-12-19 15:50 | Orthopedic Consultation ---
Date of Consultation December 19, 2020 Assessment & Plan (1) Cellulitis of foot, right: X-rays to be reviewed by [facility] physicians. The skin maceration and ulceration over on the lateral aspect of the heel will likely need debrided to some extent. With only a small improvement noted on plain film of the right foot deep exploration with possible irrigation and debridement of the right heel may be needed. WBC count has been fluctuating up and down while he has been here. We will recheck a sed rate and CRP. (Latest CRP/ESR trending down) We will also plan on tentatively adding the patient on the operating room schedule tomorrow if I&D is needed. Continue current IV antibiotics. History of Present Illness Reason for Consultation: Cellulitis right foot Attending Physician: Sunny Lim DO History of Present Illness Patient is a 50-year-old white male with history of type 2 diabetes poorly co ntrolled with peripheral neuropathy. Patient has a history of obesity, chronic kidney disease, hypertension, dyslipidemia, chronic diastolic CHF, cardiomyopathy, CAD, history of MRSA infection, chronic back pain. The patient was admitted several days ago with a cellulitis of his right heel. He apparently had stepped on a marisol thumbtack but does not remember how long the tach had been in there. With his neuropathy he did not feel it. He began having right heel pain that radiated up into the ankle and into the lower extremity. This progressed with cellulitis and swelling. Thumbtack had been removed however he continued to develop infection. He was admitted for IV antibiotics. Initially during his stay, he only had the area on the plantar surface of his heel that was showing any type of wound. However over the last several days he developed some blistering over the lateral aspect of his heel which was opened.On initial foot x-ray, it was showing a 3 cm focal area of soft tissue gas at the plantar surface of the heel concerning for gas forming organism and possibly a skin laceration or ulceration no underlying bony abnormality was suggested. MRI was ordered of the ankle later on and showed subcutaneous emphysema of the heel pad with mild cellulitis and no abscesses or evidence of osteomyelitis. Repeat x-ray of the right foot shows slight improvement within the collection of the subcutaneous gas within the plantar surface of the heel. Surgical consult was obtained from general surgery at which time felt no surgery was warranted. With only interval improvement on x- ray we have been asked to evaluate the patient for question of possible need for irrigation and debridement. Currently he is sitting in his bed awake and alert and without complaints. He has had no pain in the right foot at this time. He denies fevers or chills at this time. Allergies Allergy/AdvReac Type Severity Reaction Status Date / Time No Known Allergies Allergy Verified 12/14/20 17:48 Home Medications Medication Instructions Recorded Confirmed Type aspirin 81 mg PO QAM 04/03/18 12/14/20 History ascorbate calcium (vitamin C) 500 500 mg PO QAM 12/25/19 12/14/20 History mg tablet carvedilol 6.25 mg tablet 6.25 mg PO BID #180 tab 01/16/20 12/14/20 Rx Metamucil 1 tbsp PO QAM 01/31/20 12/14/20 History Probiotic Blend 1 cap PO QAM 01/31/20 12/14/20 History metolazone 5 mg tablet 5 mg PO DAILY PRN #30 tab 03/13/20 12/14/20 Rx pantoprazole 40 mg tablet,delayed 40 mg PO QAM #90 tab 05/17/20 12/14/20 Rx release blood sugar diagnostic #125 ea 08/21/20 09/25/20 Rx insulin lispro 100 unit/mL 10 unit SUBCUT TID #15 ml 08/23/20 12/14/20 Rx subcutaneous half-unit pen lisinopril 5 mg tablet 5 mg PO DAILY #30 tab 10/16/20 12/14/20 Rx tramadol 50 mg tablet 50 mg PO BID PRN #60 tab 10/31/20 12/14/20 Rx pen needle, diabetic 32 gauge x #400 ea 11/01/20 Rx 5/32" insulin glargine 100 unit/mL (3 60 unit SUBCUT QAM #15 ml 12/10/20 12/14/20 Rx mL) subcutaneous pen atorvastatin 20 mg PO DAILY 12/14/20 12/14/20 History bumetanide 2 mg PO DAILY 12/14/20 12/14/20 History Patient History Medical History CAD (coronary artery disease) Cardiomyopathy, nonischemic CHF (congestive heart failure) Chronic back pain CKD (chronic kidney disease) Diabetes Diabetic gastroparesis Diabetic peripheral neuropathy GERD (gastroesophageal reflux disease) History of anesthesia reaction woke up during last colonoscopy 2017 HLD (hyperlipidemia) HTN (hypertension) Hx MRSA infection Iron deficiency anemia Morbid obesity with BMI of 50.0-59.9, adult Myocardial infarction "silent" between the time frame of 7650-1076 ??--follows with [facility] Non-ischemic cardiomyopathy Renal agenesis, 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 Family History Family/Other Colon cancer Father Prostate cancer Diabetes Hypertension Brother Diabetes Mother Diabetes Grandfather (Paternal) Family hx of colon cancer Other No family history of adverse response to anesthesia No significant family history Social History Smoking Status: Never smoker Second Hand Exposure: No; Do You Dip or Chew Tobacco: No; Hx Alcohol Use: No Hx Substance Use: No Preferred Language: Belarusian Communication Ability: Effective Visual Impairment: Limited Hearing Ability: Normal Java Mobile Developer Required: No Beliefs That Will Affect Care: None marital status: Single Current Living Situation: Family Current Living Situation Comment: Pt. lives w/ mother and father current occupational status: employed Other Information That Helps Us Care for You: No Feels Safe at Home: Yes Safety Concerns: Feels Safe At This Time during the past year weight has: remained stable Assistive Devices: Cane Assistive Devices Comment: Pts. personal cane at bedside Review of Systems Review of Systems: All systems reviewed & are unremarkable except as noted in HPI & below Physical Exam Physical Exam: On examination, the patient is a 50-year-old obese white male who appears his stated age. Alert and oriented x3, no acute distress, pleasant and cooperative. On examination of his right lower extremity at the foot, he has moderate pitting edema of the dorsum of the foot. Erythema overlies some of the dorsum of the foot as well. He has an Optifoam dressing over the heel of his foot at this time. This is removed revealing open soft tissue maceration appear to be blist ering with what appears to be 10 firm purulence under the soft tissue. The area where his thumbtack was located appears fairly benign at this time. Not much in the way of erythema. I can palpate the heel and the ulcer area fairly aggressively and cannot express any purulent drainage at this time. There is no foul odor. Capillary refill is slightly sluggish and I cannot appreciate a dorsalis pedis pulse on the right foot secondary to moderate edema. Sensation decreased secondary to neuropathy. Optifoam dressing reapplied to the skin blister area. Results & Data ([facility]) Vital Signs (Past 12 Hours) Vital Signs Temp Pulse Pulse Resp BP Pulse Ox 12/19/20 15:00 82 12/19/20 11:42 37.1 C 81 18 132/61 94 12/19/20 07:25 37.0 C 79 18 145/75 H 93 12/19/20 07:00 81 12/19/20 04:23 36.8 C 81 18 135/64 94 Diagnostic Findings Patient: MAIKEL NUR Date: 12/14/20MR#: [id number]: Alyse SUNNYVALE STAcct ID:[id number]: [address]Birth Date: 1970[facility] Zip: [place], [place] [address]Pcu: 50Location: 2WSex: MRoom/Bed: [id number] Phy: Sunny Lim D.O.Diagnosis: DIABETIC FOOT WOUND,RLEPri Phy: Idris Moreno III, MDService Date: 12/18/20Fam Phy:Interpreting Phy: Sebastián Moon MDAdmit Phy: Amanda Willard D.O. Ordering Phy: Maliha Toussaint DO cc: ~ XR foot RT min 3V routine CLINICAL HISTORY: Evaluate subcutaneous gas, right foot infection COMPARISON STUDY: Right ankle MRI 12/15/2020 and right foot radiograph 12/15/2020. FINDINGS: Slight improvement within the collection of subcutaneous gas within the plantar surface of the heel. There is an overlying skin ulceration. No underlying bony destruction to suggest osteomyelitis. Large plantar and posterior calcaneal spurs are noted. There is diffuse soft tissue swelling within the foot. No fractures. Vascular calcifications are noted. IMPRESSION: Slight improvement within the collection of subcutaneous gas within the plantar surface of the heel. No underlying bony destruction to suggest an osteomyelitis. MR ankle RT wo/w con: HISTORY: 50 years-old Male r/o abscess plantar surface puncture site(heel). Soft tissue wound of the heel pad with possible osteomyelitis. COMPARISON: Radiographs 12/15/2020, Right forefoot MRI 02/12/2017. TECHNIQUE: Multiplanar multisequence MRI of the right ankle was obtained both with and without the use of 14.5 mL of Gadavist. FINDINGS: Lateral ankle ligaments appear intact. Moderate tendinosis of the peroneus longus. Chronic appearing at least intermediate grade split tear of the inframalleolar segment of peroneus brevis. Trace associated tenosynovitis. The medial and extensor tendons appear intact. The syndesmotic ligaments appear intact. Mild thickening of the distal Achilles tendon compatible with tendinosis. Large enthesophytes of the calcaneus at the Achilles and plantar insertion sites. Moderate thickening of the medial cord plantar fascia with trace associated edema suggestive of acute on chronic plantar fasciitis. Subcutaneous gas within the heel pad redemonstrated along with subcutaneous edema. No drainable fluid collection. There is mild multifocal osteoarthritis of the hindfoot and imaged mid foot with minimal osteoarthritis of the tibiotalar joint. No significant bone marrow edema or osseous erosions. No acute fracture or dislocation. No osteochondral defect. There is moderate to extensive diffuse subcutaneous edema, most pronounced dorsally. There is atrophy of the intrinsic musculature with associated edema. There is enhancement involving the abductor hallucis and flexor digitorum brevis musculature. Study is mildly motion de graded. IMPRESSION: 1. Subcutaneous emphysema of the heel pad with mild cellulitis. No abscess or evidence of osteomyelitis. 2. Moderate to extensive subcutaneous edema of the foot and ankle. 3. Atrophy of the intrinsic musculature may be secondary to chronic denervation changes. Enhancement of the abductor hallucis and flexor digitorum brevis musculature may also be secondary to chronic denervation changes versus myositis.
[2020-12-19] MEDS: ACETAMINOPHEN 325 MG TAB PO PRN ×2 (16:58→21:14)
[2020-12-19] MEDS: INSULIN ASPART 100 UNITS/ML VIAL SC SCH ×2 (18:38→20:21)
[2020-12-20] MEDS: INSULIN ASPART 100 UNITS/ML VIAL SC SCH ×6 (00:07→21:41)
[2020-12-20] MEDS: DAPTOmycin 400 MG in SYRINGE 0 ML IV SCH (04:08)
[2020-12-20] MEDS: PIPERACILLIN/TAZOBACTAM 4.5 GM in DEXTROSE 5% 100 ML IV SCH ×3 (04:11→20:50)
[2020-12-20] MEDS: ACETAMINOPHEN 325 MG TAB PO PRN (04:17)
[2020-12-20] MEDS: ASPIRIN 81 MG ECTAB PO SCH (08:27)
[2020-12-20] MEDS: carvediloL 6.25 MG TAB PO SCH ×2 (08:27→21:18)
[2020-12-20] MEDS: ENOXAPARIN INJ 40 MG/0.4 ML SYR SQ SCH (08:28)
[2020-12-20] MEDS: lisinopril 5 MG TAB PO SCH (08:29)
[2020-12-20] MEDS: PANTOprazole 40 MG TAB PO SCH (08:29)
[2020-12-20] MEDS: PSYLLIUM 58.6% POWDER PACKET PO SCH (08:30)
[2020-12-20 08:48] LABS: Basophils # (auto) 0.02 K/uL (0-0.2); Basophils % (auto) 0.2 %; Eosinophils # (auto) 0.15 K/uL (0-0.5); Eosinophils % (auto) 1.2 %; Hemoglobin 11.9 g/dL (14.0-18.0); Immature Granulocytes # (auto) 0.05 K/uL (0.00-0.02); Immature Granulocytes % (auto) 0.4 %; Lymphocytes # (auto) 1.42 K/uL (1.2-3.4); Lymphocytes % (auto) 11.4 %; Mean Corpuscular Hemoglobin 28.5 pg (25-34); Mean Corpuscular Hgb Conc 33.1 g/dL (32-36); Mean Corpuscular Volume 86.1 fL (80-100); Mean Platelet Volume 9.3 fL (7.4-10.4); Monocytes # (auto) 0.87 K/uL (0.11-0.59); Neutrophils # (auto) 9.93 K/uL (1.4-6.5); Neutrophils % (auto) 79.8 %; Platelet Count 278 K/uL (130-400); RDW Coefficient of Variation 13.2 % (11.5-14.5); RDW Standard Deviation 42.3 fL (36.4-46.3); Red Blood Count 4.18 M/uL (4.7-6.1); White Blood Count 12.44 K/uL (4.8-10.8)
[2020-12-20] MEDS ORDERED: INSULIN GLARGINE SOLOSTAR 100 UNITS/ML 3 ML PEN SC SCH (09:00)
[2020-12-20 09:10] LABS: BUN Creatinine Ratio 18.3 (10-20); Calcium 9.3 mg/dl (8.5-10.1); Creatinine Clr Calc Pharmacy 62.3 ml/min; Est GFR (African American) 43.5 ml/min; Est GFR (Non-African American) 37.6 ml/min; Potassium 3.8 mmol/L (3.5-5.1)
--- NOTE | 2020-12-20 11:41 | Medical Student Progress Note ---
Date of Service December 20, 2020 Assessment & Plan (1) Cellulitis of foot, right: 50 Y/O male with poorly controlled DM and peripheral neuropathy presenting with swelling and pain of RLE following a puncture wound from a marisol thumb tack. Cellulitis of the right foot -New opened ulcer on the lateral aspect of the right foot. -WBC counts continue to fluctuate between ~10 and ~13 -Patient remains afebrile, HD stable, no evidence of systemic infection. -X-ray of right foot shows soft tissue gas corresponding to location of injury unchanged since admission. -X-ray on 12/19 shows slight improvement of subcutaneous gas. -Ankle MRI shows no evidence of osteomyelitis or abscess. -No clinical evidence of necrotizing fasciitis or ascending infection. -Doppler ultrasound was negative. -Given tetanus in the ER. -Continue Daptomycin and Zosyn -Prior history of MRSA infection. -Line of erythema marked and will monitor for progression. -Significant improvement of erythema. -Tylenol PRN fever/pain -Tramadol PRN pain -General Surgery consulted -Continue medical management with IV antibiotics. No plans for surgery at present. -Wound care consulted -Continue wound care -Follow-up repeat ankle x-ray showed improvement of subcutaneous gas and no evidence of osteomyelitis -Orthopedic Surgery Consulted -Irrigation and Debridement of the wound performed in the OR. -Surgical outcomes will determine length of stay. Type 2 diabetes mellitus with neurological manifestations uncontrolled -Patient with poorly controlled DM. -He does not take his metformin regularly. His recent home morning blood sugars have been in the 400s. -HgbA1c =13.5 -Morning BSG was 204 -Basal-Bolus insulin during inpatient stay. Pharmacy is adjusting doses based on morning BSGs. -Hyperglycemia secondary to inflammatory response. -Glycemic management consultation appreciated. -Diabetes education. Chronic kidney disease -BUN (37) and Cr (2.01), up from yesterday [BUN (32) and Cr (1.92)] -Monitor BUN, Cr for upward/downward trends vs. physiologic fluctuations -Hold Bumex -Avoid nephrotoxic agents -Renal dosing where needed Constipation -Resolved -Had a BM. -Continue miralax Hypoxia Chronic -Most likely due to obesity hypoventilation syndrome -Overnight pulse oximetry shows high (98), low (46), mean (89) -Morning blood gas shows respiratory alkalosis. Hypertension Blood pressure stable -Continue Carvedilol and Lisinopril -Continue to monitor BP Chronic diastolic CHF Patient appears mildly volume overloaded, received extra IV 1 mg of Bumex in the ED with resolution of symptoms -Monitor I/Os, weights -Hold home dose - Bumex 2mg po daily due to stress on kidneys Dyslipidemia Chronic -Statin on hold while on Daptomycin CAD Patient denies chest pain -Continue ASA 81mg po daily -Continue Carvedilol 6.25mg po BID -Continue Lisinopril -Statin on hold while on Daptomycin GERD Chronic -Continue Protonix 40mg po q AM FEN: AHA diet/DM2 Code Status: Full code DVT PPX: Lovenox PT/OT: Not indicated at present Dispo: Med telemetry (2) Hypertension: Hypertension type: essential hypertension Qualified Code(s): I10 - Essential (primary) hypertension (3) Puncture wound of foot, right: Encounter type: initial encounter Qualified Code(s): S91.331A - Puncture wound without foreign body, right foot, initial encounter (4) Chronic kidney disease: Chronic kidney disease stage: unspecified stage Qualified Code(s): N18.9 - Chronic kidney disease, unspecified (5) Dyslipidemia: (6) Chronic diastolic CHF (congestive heart failure): (7) CAD (coronary artery disease): Associated angina: without angina Coronary Disease-Associated Artery/Lesion type: false pass artery [place] vs. transplanted heart: false pass heart Qualified Code(s): I25.10 - Atherosclerotic heart disease of false pass coronary artery without angina pectoris (8) GERD (gastroesophageal reflux disease): Esophagitis presence: esophagitis presence not specified Qualified Code(s): K21.9 - Gastro-esophageal reflux disease without esophagitis Admission and Anticipated Discharge Date Admission Date: December 14, 2020 Supervising Attestation I personally examined the patient and verified all lynn points of history and exam, discussed case, and agree with decision making with Penny KELLY. Patient seen postop, generally feeling okay. No new complaints. Op notes noted. Vitals noted, in general he is awake and alert pleasant no distress. HEENT normocephalic atraumatic mucous membranes moist. Breathing unlabored no accessory muscle use good effort. Foot dressed in a bulky dressing, no tracking erythema noted. Foot cellulitisrelated to puncture wound and uncontrolled diabetes, undoubtedly did not notice the tack due to his dense neuropathy. Now post debridement, continue current antibiotics pending further improvement/surgical cultures/orthopedic follow-up. Uncontrolled type 2 diabeteshave tried to provide ongoing education on self- care, how to do it, and the importance thereof. Continue to titrate insulins, sugars have overall been reasonable during his stay. ARF on CKD continue holding diuretics. Continue to follow basic metabolic panel. asymptomatic relative hypoxia - likley GULSHAN/OHS. overngith pulse ox as expected, AM ABG showed hyperventilation picture with no clinical correlation. for now nocturnal O2, anticipate sleep study after discharge. Otherwise as above Subjective Pt is in bed in no acute distress. He continues to report no pain or discomfort, although never truly had pain due to significant neuropathy. Has been tolerating meals. No fever/chills overnight. He has no concerns about his current condition. He has no questions regarding his surgery or the hospital plan. He offers no new information at this time. Review of Systems Ear, Nose, Mouth, Throat: no dizziness, no facial pain, no sinus pain/pressure and no sore throat Respiratory: + cough; no dyspnea, no pain with cough and no wheezing Cardiovascular: + edema; no chest pain, no dyspnea and no lightheadedness Gastrointestinal: no abdominal pain, no nausea and no vomiting Musculoskeletal: + swelling; no radicular pain and no joint pain Integumentary: + wounds, + erythema and + skin swelling Neurologic: + loss of sensation and + numbness; no generalized weakness and no dizziness Physical Exam Constitutional: + morbidly obese and cooperative; no acute distress Eyes: PERRL, conjunctivae normal, anicteric sclerae ENMT: external ear and nose normal, oropharynx normal Neck: trachea midline, no thyromegaly Respiratory: normal respiratory effort, lungs clear to auscultation + cough Cardiovascular: Rate/Rhythm: regular rate and regular rhythm Heart Sounds: no murmur and no cardiac rub Vessels: posterior tibial pulses present (weak) and dorsalis pedis pulses present (weak) Extremities: normal capillary refill and + pedal edema Gastrointestinal (Abdomen): normal bowel sounds, soft, nontender, no hepatosplenomegaly Inspection/Auscultation: abdomen normal to inspection and + hypoactive bowel sounds Percussion/Palpation: abdomen soft; abdomen nontender Musculoskeletal: no cyanosis or clubbing, extremities motor strength 5/5 Extremities: extremities normal to inspection and strength 5/5 throughout; no cyanosis Skin: + wound, + dry skin and + erythema Trauma: + puncture Neurologic: PERRL, EOMI, accommodation nl, no face palsy, no dysarthria moves all extremities Motor/Sensory: + sensory deficit Psychiatric: A+Ox3, euthymic affect Lymphatic: no cervical or axillary lymphadenopathy Results & Data ([facility]) Vital Signs (Past 12 Hours) Vital Signs Temp Pulse Pulse Pulse Resp BP BP 12/20/20 11:21 37.0 C 82 18 130/66 12/20/20 08:00 85 12/20/20 07:27 36.9 C 80 18 118/68 12/20/20 04:22 36.5 C 81 20 157/79 H 12/20/20 00:40 80 12/19/20 23:53 36.6 C 81 20 126/72 Pulse Ox 12/20/20 11:21 91 12/20/20 08:00 12/20/20 07:27 92 12/20/20 04:22 93 12/20/20 00:40 12/19/20 23:53 90
--- NOTE | 2020-12-20 13:35 | Pharmacy Report ---
Pharmacy Glycemic Short Note 2 - Date of Service December 20, 2020 - Glycemic Short BSG Results (Last 24 hours): 12/19/20 12/19/20 12/19/20 16:45 19:59 21:24 Glucose POC Glucose 107 H 92 61 L* 12/19/20 12/19/20 12/20/20 21:41 22:07 00:04 Glucose POC Glucose 69 L* 96 112 H 12/20/20 12/20/20 12/20/20 04:17 07:40 08:19 Glucose 190 H POC Glucose 153 H 204 H 12/20/20 11:43 Glucose POC Glucose 166 H OUTPATIENT ANTIDIABETIC REGIMEN: * Basaglar 60 units SQ AM * Humalog 10 units SQ TID + SSI ASSESSMENT: 12/20/20: * Patient received 260 units of insulin yesterday, of which 80 units were basal insulin * HS BSG low last evening in 60s - patient given some ice cream and chocolate milk. Fasting BSG this AM in 200s, likely related from overnight snack * Patient NPO for heel debridement today, plan reduce basal dose slightly by ~20% * Will loosen CF/CR to avoid decreasing BSGs again at HS time 12/19/20: * Patient received total of 265 units of insulin yesterday, of which 140 units were basal insulin * Fasting BSG ~300 mg/dL? - called and spoke to patient over phone as insulin needs have doubled within the last day. He reports no snacking but has been drinking these packets he mixes with water. He did not seem sure what was in them but said they were low carb. May need to see ingredients to see if we need to be covering for if BSGs remain elevated. Patient also reports that when he received his "shots" last night in his arm, he mentioned that his arm was wet after. May utilize scale for HS Lantus dose. 12/17/20: * Fasting BSG improved, but still above goal this morning. Lantus increased. * Pre-lunch BSG elevated, so Novolog parameters tightened to provide additional carb coverage. * Will continue to adjust as needed. 12/16 * Improvement in BSGs after Novolog adjustments yesterday. * Fasting BSG elevated this morning, so Lantus was increased. * Will continue to follow and adjust as necessary. 12/15 * 50 year old obese male admitted for cellulitis of foot, found thumb tack in bottom of foot, unknown how long it was there, surgery consulted, no surgery planned at this time, on IV antibiotics. * Admitted with hyperglycemia, received 10 units IV regular insulin x2, 37 units SQ NovoLog, 40 units Lantus, and blood sugar came down to 193mg/dl * A1c pending, on basal bolus at home, will use as inpatient and titrate to goal blood sugar PLAN FOR INPATIENT GLYCEMIC CONTROL: * Basal insulin * Lantus 65 units x 1 (NPO today) * Bolus insulin * NovoLog per scale ACHS or Q6hrs while NPO * Goal Range: Low 110 mg/dL - High 140 mg/dL * Correction Factor: 10 mg/dL/unit * Nutritional / Prandial insulin per carb ratio of 1 unit per 2 grams CHO consumed DISCHARGE PLAN: * A1c 13.5% on admission - goal less than 7% * A1c is greater than or equal to 10% it is recommended to consider triple therapy with metformin + basal insulin + (GLP1-RA OR prandial insulin). May need to continue additional antidiabetic agent based on patient specific factors (efficacy, hypo risk, weight gain/loss, side effects, cost) * Patient met with DM educator and patient had trialed metformin in the past, however it was discontinued due to CKD and patient also not able to tolerate due to side effects. Per notes, patient not willing to retrial metformin * Patient could benefit from increase in basal insulin and novolog on discharge - could consider increasing to Lantus 80 units daily and Novolog 20 units TIDM + SSI * Patient would benefit from education on healthy lifestyle (diet - avoiding sugary drinks, eating lower carbs; exercise, etc) * Would encourage close followup outpatient as regimen likely will need titrated. He follows his PCP for DM management. DM educator discussed possible benefits of adding SGLT-2 or GLP-1, patient wanting to check cost/review with his PCP before starting. * Will continue to follow and make adjustments to discharge plan as necessary
--- NOTE | 2020-12-20 15:03 | History & Physical Bridge Note ---
Date of Service December 20, 2020 History & Physical Bridge Note I have examined the patient, reviewed the History & Physical and in the interval since the performance of the History & Physical I have noted the following changes of clinical significance: no changes noted
[2020-12-20] MEDS ORDERED: LIDOCAINE 2% 2 ML VIAL/AMP(20MG/ML) INFIL ONE (15:24)
[2020-12-20] MEDS ORDERED: PROPOFOL IV EMULSION 10 MG/ML 20 ML VIAL IV ONE ×2 (15:24→17:01)
[2020-12-20] MEDS ORDERED: MIDAZOLAM HCL 1 MG/ML 2ML VIAL ONE (15:25)
[2020-12-20] MEDS ORDERED: fentaNYL citrate 100 MCG/2 ML VIAL ONE (15:25)
--- NOTE | 2020-12-20 15:30 | Anesthesiology Consultation ---
Date of Service December 20, 2020 Assessment & Plan Chart Review Chart Review: Acceptable Risk for Surgery and Patient NOT seen in Pre Admission Testing Consults Requested none History Surgery Operation Date: 12/20/20 08:25 Proposed Procedures p Right Heel Irrigation and Debridement - Dylon Valero DO Height/Weight Height: 5 ft 8 in Weight: 148 kg Allergies Allergy/AdvReac Type Severity Reaction Status Date / Time No Known Allergies Allergy Verified 12/20/20 14:43 Medications Home Medications Medication Instructions Recorded Confirmed Last Taken aspirin 81 mg PO QAM 04/03/18 12/14/20 12/11/20 ascorbate calcium (vitamin C) 500 500 mg PO QAM 12/25/19 12/14/20 12/11/20 mg tablet carvedilol 6.25 mg tablet 6.25 mg PO BID #180 tab 01/16/20 12/14/20 12/11/20 Metamucil 1 tbsp PO QAM 01/31/20 12/14/20 12/11/20 Probiotic Blend 1 cap PO QAM 01/31/20 12/14/20 12/11/20 metolazone 5 mg tablet 5 mg PO DAILY PRN #30 tab 03/13/20 12/14/20 12/11/20 pantoprazole 40 mg tablet,delayed 40 mg PO QAM #90 tab 05/17/20 12/14/20 0 12/11/20 release blood sugar diagnostic #125 ea 08/21/20 09/25/20 Unknown insulin lispro 100 unit/mL 10 unit SUBCUT TID #15 ml 08/23/20 12/14/20 12/11/20 subcutaneous half-unit pen lisinopril 5 mg tablet 5 mg PO DAILY #30 tab 10/16/20 12/14/20 12/11/20 tramadol 50 mg tablet 50 mg PO BID PRN #60 tab 10/31/20 12/14/20 12/11/20 pen needle, diabetic 32 gauge x #400 ea 11/01/20 Unknown " insulin glargine 100 unit/mL (3 60 unit SUBCUT QAM #15 ml 12/10/20 12/14/20 12/11/20 mL) subcutaneous pen atorvastatin 20 mg PO DAILY 12/14/20 12/14/20 12/11/20 bumetanide 2 mg PO DAILY 12/14/20 12/14/20 12/11/20 Active Medications Generic Name Dose Route Start Last Admin Trade Name Frevitor PRN Reason Stop Dose Admin Acetaminophen 650 mg 12/14/20 21:11 12/20/20 04:17 Acetaminophen 325 Mg Tab PO 01/13/21 21:10 650 mg Q4H PRN Administration pain/fever Aspirin 81 mg 12/15/20 09:00 12/20/20 08:27 Aspirin 81 Mg Ectab PO 01/14/21 08:59 81 mg QAM STEVE Administration Bumetanide 2 mg 12/15/20 09:00 12/16/20 09:08 Bumetanide 1 Mg Tab PO 01/14/21 08:59 2 mg DAILY STEVE Administration Carvedilol 6.25 mg 12/14/20 21:11 12/20/20 08:27 Carvedilol 6.25 Mg Tab PO 01/13/21 21:10 6.25 mg BID STEVE Administration Enoxaparin Sodium 40 mg 12/15/20 09:00 12/20/20 08:28 Enoxaparin Inj 40 Mg/0.4 Ml Syr SQ 01/14/21 08:59 Not Given Q12H STEVE Piperacillin Sod/Tazobactam 120 mls @ 30 mls/hr 12/15/20 04:00 12/20/20 12:17 Sod 4.5 gm/ Dextrose IV 12/22/20 03:59 30 mls/hr Q8H STEVE Administration Protocol Daptomycin 400 mg/ Syringe 8 mls @ 4 mls/min 12/16/20 04:00 12/20/20 04:08 IV 12/22/20 03:59 4 mls/min Q24H STEVE Administration Protocol Insulin Aspart 0 units 12/20/20 08:00 12/20/20 12:18 Insulin Aspart 100 Units/Ml Vial SC 01/19/21 07:59 3 units Q6 STEVE Administration Protocol Lisinopril 5 mg 12/15/20 09:00 12/20/20 08:29 Lisinopril 5 Mg Tab PO 01/14/21 08:59 5 mg DAILY STEVE Administration Loperamide HCl 2 mg 12/18/20 16:14 12/19/20 08:14 Loperamide Hcl 2 Mg Cap PO 01/17/21 16:13 2 mg TID PRN Administration Diarrhea Miscellaneous 15 - 30 gm 06/05/21 21:11 12/19/20 21:24 Carbohydrates For Hypoglycemia PO 01/13/21 21:10 30 gm UD PRN Administration Hypoglycemia Protocol Pantoprazole Sodium 40 mg 12/15/20 09:00 12/20/20 08:29 Pantoprazole 40 Mg Tab PO 01/14/21 08:59 40 mg QAM STEVE Administration Psyllium Hydrophilic Mucilloid 1 pkt 12/15/20 09:00 12/20/20 08:30 Psyllium 58.6% Powder Packet PO 01/14/21 08:59 Not Given QAM STEVE Tramadol HCl 50 mg 12/14/20 21:11 12/16/20 16:09 Tramadol Hcl 50 Mg Tablet PO 01/13/21 21:10 50 mg BID PRN Administration pain NPO Date Last Intake of Fluids: 12/19/20 Time Last Intake of Fluids: 23:45 Date Last Intake of Solids: 12/19/20 Time Last Intake of Solids: 23:45 Past Medical History Medical History CAD (coronary artery disease) Cardiomyopathy, nonischemic CHF (congestive heart failure) Chronic back pain CKD (chronic kidney disease) Diabetes Diabetic gastroparesis Diabetic peripheral neuropathy GERD (gastroesophageal reflux disease) History of anesthesia reaction woke up during last colonoscopy 2017 HLD (hyperlipidemia) HTN (hypertension) Hx MRSA infection Iron deficiency anemia Morbid obesity with BMI of 50.0-59.9, adult Myocardial infarction "silent" between the time frame of 1300-0523 ??--follows with [facility] Non-ischemic cardiomyopathy Renal agenesis, 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, 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 Restless legs syndrome SBO (small bowel obstruction) Skin abscess Jul 2019, neck, s/p I&D with +MRSA culture Skin ulcer of left foot including toes Sleep apnea Past Family History Family History Family/Other Colon cancer Father Prostate cancer Diabetes Hypertension Brother Diabetes Mother Diabetes Grandfather (Paternal) Family hx of colon cancer Other No family history of adverse response to anesthesia No significant family history Past Surgical History Surgical History History of esophagogastroduodenoscopy (EGD) History of incision and drainage neck History of left knee surgery History of surgery left leg d/t cellulitis Hx of cardiac cath 2018 @ [facility] no stents Hx of colonoscopy Hx of hand surgery right hand d/t cellulitis issues ? Social History Smoking Status: Never smoker Do You Dip or Chew Tobacco: No Hx Alcohol Use: No Alcohol type: beer alcohol intake frequency: holidays/special occasions only Hx Substance Use: No substance use type: does not use Physical Exam Vital Signs Last Vital Signs Temp 37.2 C 12/20/20 14:46 Pulse 82 12/20/20 14:46 Resp 20 12/20/20 14:46 BP 126/65 12/20/20 14:46 Pulse Ox 95 12/20/20 14:46 Testing Laboratory Results 12/20/20 08:19 12/20/20 08:19 PT 10.5 Seconds (9.0-12.0) 12/15/20 06:35 INR 1.0 (0.9-1.1) 12/15/20 06:35 Hemoglobin A1c 13.5 % (4.5-5.6) H 12/15/20 06:35 12/20/20 12/20/20 12/20/20 11:43 07:40 04:17 POC Glucose 166 H 204 H 153 H Electrocardiogram Date: 06/24/20 Normal sinus rhythm (88) Left axis deviation Anterior infarct Inferior infarct Abnormal ECG When compared with ECG of 28-MAR-2020 21:58, Questionable change in initial forces of Anterolateral leads
[2020-12-20] MEDS ORDERED: BUPIVACAINE 0.5 % 5 MG/1 ML MPF 30ML VIAL ONE (16:06)
[2020-12-20] MEDS ORDERED: ATROPINE SULFATE 0.1 MG/ML 10ML SYR IV PRN (16:10)
[2020-12-20] MEDS ORDERED: HYDROmorphone INJ 2 MG/ML SYR/VIAL IV PRN (16:10)
[2020-12-20] MEDS ORDERED: fentaNYL citrate 100 MCG/2 ML VIAL IV PRN (16:10)
[2020-12-20] MEDS ORDERED: ePHEDrine sulfate 50 MG/ML AMP IV PRN (16:10)
[2020-12-20] MEDS ORDERED: ONDANSETRON INJ 2 MG/ML 2 ML VIAL IV PRN (16:10)
[2020-12-20] MEDS ORDERED: FLUMAZENIL 0.1 MG/1 ML 10 ML VIAL IV ONE (16:31)
[2020-12-20] MEDS ORDERED: NALOXONE HCL 0.4 MG/1 ML VIAL/CARP ONE (16:44)
[2020-12-20] MEDS ORDERED: ALBUTEROL HFA INHALER 8.5 GM ONE (17:00)
--- NOTE | 2020-12-20 17:03 | Post Operative Brief Note ---
Immediate Post Op Note v1 Date of Surgery December 20, 2020 Pre & Post Diagnosis Operation Date: 12/20/20 08:25 Pre-Op Diagnosis: Diabetic foot puncture wound right heel, abscess plantar right heel pad, abscess lateral heel pad, right lower extremity Post-Op Diagnosis: Diabetic foot puncture wound right heel, abscess plantar right heel pad, abscess lateral heel pad, necrotic tissue plantar heel including skin, subcutaneous tissue, fascia right lower extremity I identified the patient and participated in the time-out.: Yes Procedure Operation Date: 12/20/20 08:25 Actual Procedures p Incision and Draingage Right Heel Abcess Plantar and Lateral x2, Irrigation and Debridement Plantar Heel Puncture, Debridement skin subcutaneous fat fascia(Right) - Dylon Valero DO Surgeon Dylon Valero DO [employer] Jose Alejandro Paul PA-C Estimated Blood Loss 3 Findings Consistent with Post-Op Diagnosis Specimens Aerobic anaerobic Gram stain deep soft tissue right heel Drains Other (1 inch iodoform gauze plantar, 1 inch iodoform gauze lateral) Anesthesia Type General Regional Complications none Disposition Accompanied Patient To Recovery: No Disposition: Recovery Room Overlapping Procedure I was present for: the critical portions of procedure. I was immediately available: during the entire case.
--- NOTE | 2020-12-20 17:20 | Anesthesiology Progress Note ---
Date of Service December 20, 2020 Anesthesia Post Procedure Vital Signs Vital Signs: Temp Pulse Pulse Pulse Resp BP BP 12/20/20 17:15 36.0 C L 100 H 24 151/82 H 12/20/20 17:05 105 H 24 164/85 H 12/20/20 16:59 36 C L 105 H 16 135/105 H 12/20/20 14:46 37.2 C 82 20 126/65 12/20/20 14:20 87 12/20/20 11:21 37.0 C 82 18 130/66 12/20/20 08:00 85 12/20/20 07:27 36.9 C 80 18 118/68 12/20/20 04:22 36.5 C 81 20 157/79 H 12/20/20 00:40 80 12/19/20 23:53 36.6 C 81 20 126/72 12/19/20 19:39 37.4 C 80 20 130/70 Pulse Ox 12/20/20 17:15 92 12/20/20 17:05 95 12/20/20 16:59 96 12/20/20 14:46 95 12/20/20 14:20 12/20/20 11:21 91 12/20/20 08:00 12/20/20 07:27 92 12/20/20 04:22 93 12/20/20 00:40 12/19/20 23:53 90 12/19/20 19:39 94 Pain Intensity Left Foot: Pain Intensity: 0 Bilateral Back: Pain Intensity: 0 Transfer of Care Handoff Completed per policy Notes Mental Status: alert / awake / arousable and participated in evaluation Patient Amnestic to Procedure: Yes Nausea / Vomiting: adequately controlled Pain: adequately controlled Airway Patency, RR, SpO2: stable & adequate BP & HR: stable & adequate Hydration State: stable & adequate Anesthetic Complications: no major complications apparent and Pt Satisfied with anesthetic care
[2020-12-20] MEDS ORDERED: NALOXONE HCL 0.4 MG/1 ML VIAL/CARP IV PRN (17:39)
[2020-12-20] MEDS ORDERED: bisacodyL 10 MG SUPP PR PRN (17:39)
[2020-12-20] MEDS ORDERED: oxyCODONE HCL IR 5 MG TAB (IMMEDIATE RELEASE) PO PRN (17:39)
[2020-12-20] MEDS ORDERED: MAGNESIUM HYDROXIDE SUSP 30 ML UDC PO PRN (17:39)
[2020-12-20] MEDS ORDERED: HYDROmorphone INJ 0.5 MG/0.5 ML SYR IV PRN (17:39)
[2020-12-20] MEDS: SODIUM CHLORIDE 0.9% 1000ML 1,000 ML IV SCH (18:00)
--- NOTE | 2020-12-20 18:39 | Billing Data ---
Date of Service December 20, 2020 Coding Level of Care Code 44796 Subseq Hosp Care Lvl 3
[2020-12-20] MEDS: SENNA 8.6 MG TAB PO SCH (21:17)
[2020-12-20] MEDS: DOCUSATE SODIUM 100 MG CAP PO SCH (21:18)
[2020-12-20] MEDS ORDERED: Nursing to Pharmacy Communication SCH (21:30)
[2020-12-21] MEDS: DAPTOmycin 400 MG in SYRINGE 0 ML IV SCH (04:00)
[2020-12-21] MEDS: PIPERACILLIN/TAZOBACTAM 4.5 GM in DEXTROSE 5% 100 ML IV SCH ×3 (04:49→20:04)
[2020-12-21 07:44] LABS: Basophils # (auto) 0.02 K/uL (0-0.2); Basophils % (auto) 0.2 %; Eosinophils # (auto) 0.21 K/uL (0-0.5); Eosinophils % (auto) 1.7 %; Hematocrit (blood only) 35.4 % (42-52); Hemoglobin 11.7 g/dL (14.0-18.0); Immature Granulocytes # (auto) 0.04 K/uL (0.00-0.02); Immature Granulocytes % (auto) 0.3 %; Lymphocytes # (auto) 1.41 K/uL (1.2-3.4); Lymphocytes % (auto) 11.1 %; Mean Corpuscular Hemoglobin 28.2 pg (25-34); Mean Corpuscular Hgb Conc 33.1 g/dL (32-36); Mean Corpuscular Volume 85.3 fL (80-100); Mean Platelet Volume 9.2 fL (7.4-10.4); Monocytes # (auto) 0.72 K/uL (0.11-0.59); Monocytes % (auto) 5.7 %; Neutrophils # (auto) 10.26 K/uL (1.4-6.5); Platelet Count 273 K/uL (130-400); RDW Coefficient of Variation 13.4 % (11.5-14.5); RDW Standard Deviation 42.1 fL (36.4-46.3); Red Blood Count 4.15 M/uL (4.7-6.1); White Blood Count 12.66 K/uL (4.8-10.8)
[2020-12-21 08:02] LABS: BUN Creatinine Ratio 18.7 (10-20); Calcium 9.2 mg/dl (8.5-10.1); Creatinine Clr Calc Pharmacy 78.8 ml/min; Est GFR (African American) 53.7 ml/min; Est GFR (Non-African American) 46.3 ml/min; Potassium 3.8 mmol/L (3.5-5.1)
[2020-12-21] MEDS: INSULIN ASPART 100 UNITS/ML VIAL SC SCH ×4 (08:31→22:12)
[2020-12-21] MEDS: DOCUSATE SODIUM 100 MG CAP PO SCH ×2 (08:34→21:45)
[2020-12-21] MEDS: carvediloL 6.25 MG TAB PO SCH ×2 (08:36→21:44)
[2020-12-21] MEDS: ASPIRIN 81 MG ECTAB PO SCH (08:36)
[2020-12-21] MEDS: PSYLLIUM 58.6% POWDER PACKET PO SCH (08:36)
[2020-12-21] MEDS: MULTIVITAMIN TAB PO SCH (08:37)
[2020-12-21] MEDS: lisinopril 5 MG TAB PO SCH (08:37)
[2020-12-21] MEDS: PANTOprazole 40 MG TAB PO SCH (08:37)
[2020-12-21] MEDS ORDERED: INSULIN GLARGINE SOLOSTAR 100 UNITS/ML 3 ML PEN SC SCH (09:00)
[2020-12-21] MEDS: INSULIN GLARGINE 100 UNIT/ML VIAL SC SCH (09:09)
--- NOTE | 2020-12-21 11:56 | Orthopedic Progress Note ---
Date of Service December 21, 2020 Assessment & Plan (1) Cellulitis of foot, right: Diabetic foot puncture wound right heel, abscess plantar right heel pad, abscess lateral heel pad, necrotic tissue plantar heel including skin, subcutaneous tissue, fascia right lower extremity Postop day 1 PT/OT protocols. Nonweightbearing right lower extremity DVT prophylaxis-okay to resume enoxaparin if needed per medicine service. Pain management as written. OR cultures still pending. Showing gram-positive cocci on Gram stain. Continue current antibiotics Plan for dressing change tomorrow with partial packing removal. Admission and Anticipated Discharge Date Admission Date: December 14, 2020 Supervising Physician Co-Signing Physician Notes Patient seen and examined. Agree with FIDENCIO Paul's note as above. Patient is resting comfortably sitting on the edge of his bed. Denies any pain in his right foot. Dressings are clean, dry, and intact. Plan for dressing change tomorrow. Subjective Postop day 1 Patient currently sitting up in bed awake and alert. Patient just had his blood sugar drawn and was 96. No complaints this morning. Pain is controlled. Physical Exam Physical Exam: Dressings are clean, dry, and intact. Calves are soft and nontender. No excess edema at this point of the lower extremity. Results & Data ([facility]) Vital Signs (Past 12 Hours) Vital Signs Temp Pulse Pulse Resp BP BP Pulse Ox 12/21/20 08:00 84 12/21/20 07:30 36.6 C 82 18 133/79 92 12/21/20 04:09 36.9 C 85 20 123/82 90 12/21/20 00:39 87 12/21/20 00:26 37.1 C 84 18 135/68 94
--- NOTE | 2020-12-21 12:30 | Pharmacy Report ---
Pharmacy Glycemic Short Note 2 - Date of Service December 21, 2020 - Glycemic Short BSG Results (Last 24 hours): 12/20/20 12/20/20 12/20/20 17:05 17:43 20:36 Glucose POC Glucose 163 H 161 H 172 H 12/21/20 12/21/20 12/21/20 07:16 07:36 11:35 Glucose 147 H POC Glucose 142 H 96 OUTPATIENT ANTIDIABETIC REGIMEN: * Basaglar 60 units SQ AM * Humalog 10 units SQ TID + SSI ASSESSMENT: 12/21: * Pt has received 80 units of insulin over the past 24hrs * 65 units of basal with Lantus * 15 units of bolus with NovoLog * BSGs 185-648-027-221-047-265-96 mg/dl * Significant decrease in total daily insulin dose yesterday secondary to NPO for I&D * Will resume basal insulin of 80 units as this worked well on 12/19 * CR initially tightened this morning but BSG 142 --> 96 at lunch. Pt is not comfortable with BSG < 100 therefore will loosen CR 12/20/20: * Patient received 260 units of insulin yesterday, of which 80 units were basal insulin * HS BSG low last evening in 60s - patient given some ice cream and chocolate milk. Fasting BSG this AM in 200s, likely related from overnight snack * Patient NPO for heel debridement today, plan reduce basal dose slightly by ~20% * Will loosen CF/CR to avoid decreasing BSGs again at HS time 12/19/20: * Patient received total of 265 units of insulin yesterday, of which 140 units were basal insulin * Fasting BSG ~300 mg/dL? - called and spoke to patient over phone as insulin needs have doubled within the last day. He reports no snacking but has been drinking these packets he mixes with water. He did not seem sure what was in them but said they were low carb. May need to see ingredients to see if we need to be covering for if BSGs remain elevated. Patient also reports that when he received his "shots" last night in his arm, he mentioned that his arm was wet after. May utilize scale for HS Lantus dose. 12/17/20: * Fasting BSG improved, but still above goal this morning. Lantus increased. * Pre-lunch BSG elevated, so Novolog parameters tightened to provide additional carb coverage. * Will continue to adjust as needed. 12/16 * Improvement in BSGs after Novolog adjustments yesterday. * Fasting BSG elevated this morning, so Lantus was increased. * Will continue to follow and adjust as necessary. 12/15 * 50 year old obese male admitted for cellulitis of foot, found thumb tack in bottom of foot, unknown how long it was there, surgery consulted, no surgery planned at this time, on IV antibiotics. * Admitted with hyperglycemia, received 10 units IV regular insulin x2, 37 units SQ NovoLog, 40 units Lantus, and blood sugar came down to 193mg/dl * A1c pending, on basal bolus at home, will use as inpatient and titrate to goal blood sugar PLAN FOR INPATIENT GLYCEMIC CONTROL: * Basal insulin * Resume Lantus 80 units SQ daily now that diet resumed * Bolus insulin * NovoLog per scale ACHS or Q6hrs while NPO * Goal Range: Low 110 mg/dL - High 140 mg/dL * Correction Factor: 10 mg/dL/unit * Nutritional / Prandial insulin per carb ratio of 1 unit per 2.5 grams CHO consumed DISCHARGE PLAN: * A1c 13.5% on admission - goal less than 7% * A1c is greater than or equal to 10% it is recommended to consider triple therapy with metformin + basal insulin + (GLP1-RA OR prandial insulin). May need to continue additional antidiabetic agent based on patient specific factors (efficacy, hypo risk, weight gain/loss, side effects, cost) * Patient met with DM educator and patient had trialed metformin in the past, however it was discontinued due to CKD and patient also not able to tolerate due to side effects. Per notes, patient not willing to retrial metformin * Patient could benefit from increase in basal insulin and novolog on discharge - could consider increasing to Lantus 80 units daily and Novolog 20 units TIDM + SSI * Patient would benefit from education on healthy lifestyle (diet - avoiding sugary drinks, eating lower carbs; exercise, etc) * Would encourage close followup outpatient as regimen likely will need titrated. He follows his PCP for DM management. DM educator discussed possible benefits of adding SGLT-2 or GLP-1, patient wanting to check cost/review with his PCP before starting. * Will continue to follow and make adjustments to discharge plan as necessary
--- NOTE | 2020-12-21 14:50 | Operative Report (OR) ---
DATE OF OPERATION: 12/20/2020 PREOPERATIVE DIAGNOSES: 1. Right diabetic foot puncture wound of the heel. 2. Abscess, plantar right heel pad. 3. Abscess, lateral heel pad. POSTOPERATIVE DIAGNOSES: 1. Diabetic foot puncture wound, right heel. 2. Abscess, plantar right heel pad. 3. Abscess, lateral heel pad. 4. Necrotic tissue, plantar heel including skin, deep subcutaneous tissue, fascia. PROCEDURES: 1. Incision and drainage, right heel plantar abscess. 2. Incision and drainage, right heel lateral abscess (2 separate sites). 3. Irrigation and debridement, plantar heel puncture injury. 4. Irrigation and debridement of skin, subcutaneous tissue, and fascia. SURGEON: Dylon Valero DO. PROFILING MACHINE OPERATOR: Jose Alejandro Paul PA-C who was present for patient positioning, sterile prep and drape, management of retractors and instruments. He was present through the critical portions of the case including wound closure, application of sterile dressing and transport of the patient to recovery. ANESTHESIA: General, regional. SPECIMENS: Aerobic, anaerobic, Gram stain of deep soft tissue, right heel. DRAINS: 1. One inch iodoform gauze plantar incision. 2. One inch iodoform gauze lateral heel incision. COMPLICATIONS: None. BLOOD LOSS: 3 mL. PERTINENT HISTORY: This is a 50-year-old gentleman who apparently stepped on a tack and walking on it for several days, noticed pain and swelling of the foot and then eventually the leg. He has presented to the [facility], admitted to the hospitalist service, placed on IV antibiotics. Continued to have significant discomfort, swelling and drainage and odor. Had an MR,I which demonstrated likely abscess formation. The patient was then scheduled for surgery as indicated. All potential risks, benefits, complications, alternatives, rehab potential for incomplete relief of symptoms, need for further surgery, DVT, PE, , persistent pain, swelling, scarring, weakness, loss of function, possible need for further amputation and surgery were discussed with the patient. The patient decided to proceed with the procedure as indicated. DESCRIPTION OF PROCEDURE: The patient was taken to the operative suite, placed supine on the operating table. After review of consent and identification of proper operative site, the patient was sedated. Right lower extremity was then sterilely prepped and draped in the usual fashion, elevated and partially exsanguinated from the ankle proximally with an Esmarch bandage and Esmarch tourniquet applied over sterile surgical towel at the level of the ankle. Next, the surgical timeout was performed and the junction between the epidermis and the dermis was noted to have fluid and tissue pocket, which had developed. This was then sharply debrided over the area of approximately 25 sq cm. Next, the origin of the plantar puncture was identified. This was then incised with 15 blade scalpel and this was sharply debrided including skin, subcutaneous tissue and fascia. The secondary plantar abscess was noted to be slightly more distal, did not directly communicate. Therefore, a second incision was made in the plantar aspect of the heel through the skin and subcutaneous tissue down to the level of the abscess pocket. There was abscess fluid present, which communicated down to the level of the fascia. Therefore, the tissue was then carefully spread with Metzenbaum scissors creating a tissue pocket and then this was then cultured, aerobic, anaerobic, Gram stain, deep soft tissue of plantar heel. Next, this abscess fluid was allowed to drain. There was noted to be an area of near eruption of abscess fluid lateral heel pad. Therefore, another separate incision was made over the lateral heel pad to allow drainage of the fluid pocket. This abscess pocket was clearly identified and allowed to drain. After evacuation of the abscess pockets with debridement using rongeur and large curette, the subcutaneous tissue and fascia was then sharply debrided with a 15 blade scalpel until all necrotic tissue had been resected. Next, the sites were then carefully retracted with Hema rakes and then irrigated until clear with pulsatile lavage. After this was completed, 1 inch iodoform gauze packing was placed into the plantar incision. A second iodoform gauze drainage was placed in the lateral heel incision and then the proximal and distal aspects of the incisions were loosely closed with 3-0 nylon to stabilize the incisions, however, allowing for drainage. Next, a sterile compressive dressing consisting of Xeroform gauze, sterile 4 x 4's, ABD pads, cast padding and Titi wrap was applied. The tourniquet was released. The patient was awakened and taken to recovery in stable condition. I attest to the content of the Intraoperative Record and any orders documented therein. Any exception s are noted below.
--- NOTE | 2020-12-21 18:11 | Hospitalist Progress Note ---
Date of Service December 21, 2020 Assessment & Plan (1) Cellulitis of foot, right: POD#1 s/p I&D (initially was getting better on abx then worsened) -- now doing better again, continue current dapto/zosyn pending cultures from OR (2) Hypertension: BP reasonable (3) Puncture wound of foot, right: As above -Wound care -Antibiotics -Tetanus shot -will need education on foot checks given neuropathy (4) Chronic kidney disease: continue to follow creatinine off diuretics (5) Dyslipidemia: -Statin on hold while on Daptomycin (6) Chronic diastolic CHF (congestive heart failure): was initially appearing mildly acute on chronic at admission; since initial, has been dry (7) CAD (coronary artery disease): asymptomatic, stable (8) GERD (gastroesophageal reflux disease): Chronic -Continue Protonix 40mg po q AM F/E/N - Bumex 1mg IV given, monitor electrolytes and replete as needed, CC/AHA diet as tolerated Ppx - Lovenox 40 q 12 given BMI of 49, continue Protonix Code - Full Dispo - Admit to medical with telemetry (9) Diabetes mellitus type 2, insulin dependent: sugars fairly easy to control here, have tried multiple times to educate on "why to care" as well as lifestyle management, critical importance of control - some days he is more receptive than others (10) Obesity, morbid, BMI 40.0-49.9: actually now 54.9 (11) DVT prophylaxis: lovenox (12) Discharge planning issues: anticipate home on PO abx once postop inpatient care completed / able to switch from IV to PO abx Admission and Anticipated Discharge Date Admission Date: December 14, 2020 Subjective feels fine no new complaints ortho input appreciated has no complaints or questions, updated on plan as best as i could Review of Systems Review of Systems: All systems reviewed & are unremarkable except as noted in HPI & below Physical Exam Physical Exam: gen aaox3 pleasant nad heent nc at mmm breathing unlabored no accessory muscles good effort foot in bulky dressing no tracking erythema Results & Data Results & Data ([place]) Vital Signs (Past 12 Hours) Vital Signs Temp Pulse Pulse Resp BP BP Pulse Ox 12/21/20 16:59 82 12/21/20 15:13 98.4 F 79 18 130/72 90 12/21/20 11:30 98.2 F 82 18 139/80 93 12/21/20 08:00 84 12/21/20 07:30 97.9 F 82 18 133/79 92 PG Care Time/CCT Total # of Minutes Spent Total Time Spent with Patient: Total time spent is greater than 50% in coordination of care (as documented) at patient's floor/unit and/or counseling patient: Coding Level of Care Code 82495 Subseq Hosp Care Lvl 3 Diagnoses Cellulitis of foot, right L03.115 Hypertension I10 Hypertension type: essential hypertension Puncture wound of foot, right S91.331A Encounter type: initial encounter Chronic kidney disease N18.9 Chronic kidney disease stage: unspecified stage Dyslipidemia E78.5 Chronic diastolic CHF (congestive heart failure) I50.32 CAD (coronary artery disease) I25.10 Coronary Disease-Associated Artery/Lesion type: [place] artery [place] vs. transplanted heart: [place] heart Associated angina: without angina GERD (gastroesophageal reflux disease) K21.9 Esophagitis presence: esophagitis presence not specified Diabetes mellitus type 2, insulin dependent E11.9; Z79.4 Obesity, morbid, BMI 40.0-49.9 E66.01 DVT prophylaxis Z29.9 Discharge planning issues Z02.9 (1) Hypertension Hypertension type: essential hypertension Qualified Code(s): I10 - Essential (primary) hypertension (2) Puncture wound of foot, right Encounter type: initial encounter Qualified Code(s): S91.331A - Puncture wound without foreign body, right foot, initial encounter (3) Chronic kidney disease Chronic kidney disease stage: unspecified stage Qualified Code(s): N18.9 - Chronic kidney disease, unspecified (4) CAD (coronary artery disease) Coronary Disease-Associated Artery/Lesion type: [place] artery [place] vs. transplanted heart: [place] heart Associated angina: without angina Qualified Code(s): I25.10 - Atherosclerotic heart disease of [place] coronary artery without angina pectoris (5) GERD (gastroesophageal reflux disease) Esophagitis presence: esophagitis presence not specified Qualified Code(s): K21.9 - Gastro-esophageal reflux disease without esophagitis
[2020-12-21] MEDS: SENNA 8.6 MG TAB PO SCH (21:45)
[2020-12-21] MEDS: ACETAMINOPHEN 325 MG TAB PO PRN (21:45)
[2020-12-22] MEDS: DAPTOmycin 400 MG in SYRINGE 0 ML IV SCH (03:33)
[2020-12-22] MEDS: PIPERACILLIN/TAZOBACTAM 4.5 GM in DEXTROSE 5% 100 ML IV SCH ×3 (03:33→20:23)
--- NOTE | 2020-12-22 09:16 | Orthopedic Progress Note ---
Date of Service December 22, 2020 Assessment & Plan (1) Cellulitis of foot, right: Diabetic foot puncture wound right heel, abscess plantar right heel pad, abscess lateral heel pad, necrotic tissue plantar heel including skin, subcutaneous tissue, fascia right lower extremity Postop day 2 PT/OT protocols. Nonweightbearing right lower extremity DVT prophylaxis-okay to resume enoxaparin if needed per medicine service. Pain management as written. OR cultures still pending. Showing gram-positive cocci on Gram stain. Continue current antibiotics Plan for remainder of packing to be removed tomorrow. Admission and Anticipated Discharge Date Admission Date: December 14, 2020 Supervising Physician Co-Signing Physician Notes Patient seen and examined. Agree with FIDENCIO Paul's note as above. Dressings were changed this morning. Patient reports no pain in his foot. Subjective Postop day 2 Patient sitting up in bed awake and alert. No complaints this morning. Pain controlled. Physical Exam Physical Exam: Dressing is clean, dry, and intact. Dressing removed. Iodoform packing removed from the lateral wound. 6 inches of packing removed from the plantar wound. Mild skin maceration over the lateral wound. No purulence. No excess drainage upon removal of iodoform gauze. Plantar wound has slight maceration on the distal aspect of the edge of the wound. No purulence noted. He has less erythema around the foot and he is a little bit less swelling as well. He still has some mild swelling over the dorsum of the foot towards the toes. Neuropathy present. Wound redressed. Results & Data ([facility]) Vital Signs (Past 12 Hours) Vital Signs Temp Pulse Pulse Pulse Resp BP Pulse Ox 12/22/20 07:25 36.9 C 83 18 131/74 93 12/22/20 03:50 37.3 C 86 20 119/72 92 12/22/20 00:59 93 H 12/21/20 23:23 37.1 C 93 H 18 97/57 L 90
[2020-12-22] MEDS: INSULIN ASPART 100 UNITS/ML VIAL SC SCH ×4 (09:38→22:11)
[2020-12-22] MEDS: ASPIRIN 81 MG ECTAB PO SCH (09:41)
[2020-12-22] MEDS: carvediloL 6.25 MG TAB PO SCH ×2 (09:42→21:00)
[2020-12-22] MEDS: DOCUSATE SODIUM 100 MG CAP PO SCH ×2 (09:42→22:13)
[2020-12-22] MEDS: ENOXAPARIN INJ 40 MG/0.4 ML SYR SQ SCH (09:42)
[2020-12-22] MEDS: INSULIN GLARGINE 100 UNIT/ML VIAL SC SCH (09:44)
[2020-12-22] MEDS: lisinopril 5 MG TAB PO SCH (09:45)
[2020-12-22] MEDS: MULTIVITAMIN TAB PO SCH (09:46)
[2020-12-22] MEDS: PSYLLIUM 58.6% POWDER PACKET PO SCH (09:46)
[2020-12-22] MEDS: PANTOprazole 40 MG TAB PO SCH (09:46)
--- NOTE | 2020-12-22 09:56 | Pharmacy Report ---
Pharmacy Glycemic Short Note 2 - Date of Service December 22, 2020 - Glycemic Short BSG Results (Last 24 hours): 12/21/20 12/21/20 12/21/20 11:35 16:34 16:35 POC Glucose 96 69 L* 68 L* 12/21/20 12/21/20 12/22/20 19:09 19:52 07:50 POC Glucose 142 H 125 H 184 H OUTPATIENT ANTIDIABETIC REGIMEN: * Basaglar 60 units SQ AM * Humalog 10 units SQ TID + SSI ASSESSMENT: 12/22 * Pt has received 151 units of insulin over the past 24hrs * 80 units of basal with Lantus * 71 units of bolus with NovoLog * BSGs 142-96-68/68/142-125-184 mg/dl * Pt with LOW BSG prior to dinner yesterday - likely too much CHO coverage given at lunch when BSG = 96. Will loosen CHO coverage for lunch, dinner, and HS. Aggressive CHO coverage still needed at breakfast. * BSG rises from HS to AM 125 --> 184 mg/dl indicating that Lantus is not lasting 24hrs for patient. Will add a small HS dose of Lantus 12/21: * Pt has received 80 units of insulin over the past 24hrs * 65 units of basal with Lantus * 15 units of bolus with NovoLog * BSGs 967-455-128-579-883-665-96 mg/dl * Significant decrease in total daily insulin dose yesterday secondary to NPO for I&D * Will resume basal insulin of 80 units as this worked well on 12/19 * CR initially tightened this morning but BSG 142 --> 96 at lunch. Pt is not comfortable with BSG < 100 therefore will loosen CR 12/20/20: * Patient received 260 units of insulin yesterday, of which 80 units were basal insulin * HS BSG low last evening in 60s - patient given some ice cream and chocolate milk. Fasting BSG this AM in 200s, likely related from overnight snack * Patient NPO for heel debridement today, plan reduce basal dose slightly by ~20% * Will loosen CF/CR to avoid decreasing BSGs again at HS time 12/19/20: * Patient received total of 265 units of insulin yesterday, of which 140 units were basal insulin * Fasting BSG ~300 mg/dL? - called and spoke to patient over phone as insulin needs have doubled within the last day. He reports no snacking but has been drinking these packets he mixes with water. He did not seem sure what was in them but said they were low carb. May need to see ingredients to see if we need to be covering for if BSGs remain elevated. Patient also reports that when he received his "shots" last night in his arm, he mentioned that his arm was wet after. May utilize scale for HS Lantus dose. 12/17/20: * Fasting BSG improved, but still above goal this morning. Lantus increased. * Pre-lunch BSG elevated, so Novolog parameters tightened to provide additional carb coverage. * Will continue to adjust as needed. 12/16 * Improvement in BSGs after Novolog adjustments yesterday. * Fasting BSG elevated this morning, so Lantus was increased. * Will continue to follow and adjust as necessary. 12/15 * 50 year old obese male admitted for cellulitis of foot, found thumb tack in bottom of foot, unknown how long it was there, surgery consulted, no surgery planned at this time, on IV antibiotics. * Admitted with hyperglycemia, received 10 units IV regular insulin x2, 37 units SQ NovoLog, 40 units Lantus, and blood sugar came down to 193mg/dl * A1c pending, on basal bolus at home, will use as inpatient and titrate to goal blood sugar PLAN FOR INPATIENT GLYCEMIC CONTROL: * Basal insulin * Lantus 80 units SQ daily * Lantus 15 units SQ HS * Bolus insulin * NovoLog per scale ACHS or Q6hrs while NPO * Goal Range: Low 110 mg/dL - High 140 mg/dL * Correction Factor: 10 mg/dL/unit * Nutritional / Prandial insulin per carb ratio of 1 unit per 2.5 grams CHO consumed at breakfast only and 3.5 for all other meals DISCHARGE PLAN: * A1c 13.5% on admission - goal less than 7% * A1c is greater than or equal to 10% it is recommended to consider triple therapy with metformin + basal insulin + (GLP1-RA OR prandial insulin). May need to continue additional antidiabetic agent based on patient specific fac tors (efficacy, hypo risk, weight gain/loss, side effects, cost) * Patient met with DM educator and patient had trialed metformin in the past, however it was discontinued due to CKD and patient also not able to tolerate due to side effects. Per notes, patient not willing to retrial metformin * Patient could benefit from increase in basal insulin and novolog on discharge - could consider increasing to Lantus 80 units daily (HS dose TBD) and Novolog 25 units TIDM + SSI * Patient would benefit from education on healthy lifestyle (diet - avoiding sugary drinks, eating lower carbs; exercise, etc) * Would encourage close followup outpatient as regimen likely will need titrated. He follows his PCP for DM management. DM educator discussed possible benefits of adding SGLT-2 or GLP-1, patient wanting to check cost/review with his PCP before starting. * Will continue to follow and make adjustments to discharge plan as necessary
--- NOTE | 2020-12-22 19:42 | Hospitalist Progress Note ---
Date of Service December 22, 2020 Assessment & Plan (1) Cellulitis of foot, right: POD#2 s/p I&D (initially was getting better on abx then worsened) -- now doing better again, continue current dapto/zosyn pending cultures from OR. Appreciate orthopedics input and follow-up (2) Hypertension: BP reasonable overall given the situation (3) Puncture wound of foot, right: As above -Wound care -Antibiotics -Tetanus shot -will need education on foot checks given neuropathy (4) Chronic kidney disease: continue to follow creatinine off diureticscreatinine has trended back down, will continue to follow periodically (5) Dyslipidemia: -Statin on hold while on Daptomycin (6) Chronic diastolic CHF (congestive heart failure): was initially appearing mildly acute on chronic at admission; now has been mostly on the dry side of euvolemic (7) CAD (coronary artery disease): asymptomatic, stable (8) GERD (gastroesophageal reflux disease): Chronic -Continue Protonix 40mg po q AM (9) Diabetes mellitus type 2, insulin dependent: sugars fairly easy to control here, have tried multiple times to educate on "why to care" as well as lifestyle management, critical importance of control - some days he is more receptive than others. Continue pharmacy glycemic management (10) Obesity, morbid, BMI 40.0-49.9: actually now today listed as 50.9 (11) DVT prophylaxis: lovenox (12) Discharge planning issues: anticipate home on PO abx once postop inpatient care completed / able to switch from IV to PO abx Admission and Anticipated Discharge Date Admission Date: December 14, 2020 Subjective No new complaints, given his neuropathy he really does not have any pain in his foot. Updated on plan, he had no questions or new concerns. Review of Systems Review of Systems: All systems reviewed & are unremarkable except as noted in HPI & below Physical Exam Physical Exam: General he is awake and alert pleasant no distress. HEENT normocephalic atraumatic mucous membranes moist. Right foot in bulky dressing no tracking erythema. No new focal neuro deficits. Breathing unlabored no accessory muscle use good effort. Results & Data Results & Data ([facility]) Vital Signs (Past 12 Hours) Vital Signs Temp Pulse Resp BP Pulse Ox 12/22/20 14:53 98.2 F 81 18 147/78 H 93 12/22/20 11:00 99.3 F 83 16 123/69 92 PG Care Time/CCT Total # of Minutes Spent Total Time Spent with Patient: Total time spent is greater than 50% in coordination of care (as documented) at patient's floor/unit and/or counseling patient: Coding Level of Care Code 98066 Subseq Hosp Care Lvl 2 Diagnoses Cellulitis of foot, right L03.115 Hypertension I10 Hypertension type: essential hypertension Puncture wound of foot, right S91.331A Encounter type: initial encounter Chronic kidney disease N18.9 Chronic kidney disease stage: unspecified stage Dyslipidemia E78.5 Chronic diastolic CHF (congestive heart failure) I50.32 CAD (coronary artery disease) I25.10 Coronary Disease-Associated Artery/Lesion type: [place] artery [place] vs. transplanted heart: [place] heart Associated angina: without angina GERD (gastroesophageal reflux disease) K21.9 Esophagitis presence: esophagitis presence not specified Diabetes mellitus type 2, insulin dependent E11.9; Z79.4 Obesity, morbid, BMI 40.0-49.9 E66.01 DVT prophylaxis Z29.9 Discharge planning issues Z02.9 (1) Hypertension Hypertension type: essential hypertension Qualified Code(s): I10 - Essential (primary) hypertension (2) Puncture wound of foot, right Encounter type: initial encounter Qualified Code(s): S91.331A - Puncture wound without foreign body, right foot, initial encounter (3) Chronic kidney disease Chronic kidney disease stage: unspecified stage Qualified Code(s): N18.9 - Chronic kidney disease, unspecified (4) CAD (coronary artery disease) Coronary Disease-Associated Artery/Lesion type: [place] artery [place] vs. transplanted heart: [place] heart Associated angina: without angina Qualified Code(s): I25.10 - Atherosclerotic heart disease of [place] coronary artery without angina pectoris (5) GERD (gastroesophageal reflux disease) Esophagitis presence: esophagitis presence not specified Qualified Code(s): K21.9 - Gastro-esophageal reflux disease without esophagitis
[2020-12-22] MEDS ORDERED: INSULIN GLARGINE 100 UNIT/ML VIAL SC SCH (21:00)
[2020-12-22] MEDS: SENNA 8.6 MG TAB PO SCH (22:13)
[2020-12-23] MEDS: PIPERACILLIN/TAZOBACTAM 4.5 GM in DEXTROSE 5% 100 ML IV SCH ×2 (03:53→13:49)
[2020-12-23] MEDS: DAPTOmycin 400 MG in SYRINGE 0 ML IV SCH (03:53)
[2020-12-23] MEDS: INSULIN ASPART 100 UNITS/ML VIAL SC SCH ×6 (07:48→20:24)
[2020-12-23] MEDS: SODIUM CHLORIDE 0.9% 1000ML 1,000 ML IV SCH (07:53)
[2020-12-23] MEDS: carvediloL 6.25 MG TAB PO SCH ×2 (07:55→20:20)
[2020-12-23] MEDS: ASPIRIN 81 MG ECTAB PO SCH (07:55)
[2020-12-23] MEDS: MULTIVITAMIN TAB PO SCH (07:55)
[2020-12-23] MEDS: PANTOprazole 40 MG TAB PO SCH (07:55)
[2020-12-23] MEDS: lisinopril 5 MG TAB PO SCH (07:55)
[2020-12-23] MEDS: DOCUSATE SODIUM 100 MG CAP PO SCH ×2 (07:56→20:24)
[2020-12-23] MEDS: ENOXAPARIN INJ 40 MG/0.4 ML SYR SQ SCH (07:56)
[2020-12-23] MEDS: PSYLLIUM 58.6% POWDER PACKET PO SCH (07:56)
[2020-12-23] MEDS: ACETAMINOPHEN 325 MG TAB PO PRN (08:01)
[2020-12-23 08:26] LABS: Basophils # (auto) 0.02 K/uL (0-0.2); Basophils % (auto) 0.2 %; Eosinophils # (auto) 0.27 K/uL (0-0.5); Eosinophils % (auto) 2.6 %; Hematocrit (blood only) 35.8 % (42-52); Hemoglobin 11.7 g/dL (14.0-18.0); Immature Granulocytes # (auto) 0.08 K/uL (0.00-0.02); Immature Granulocytes % (auto) 0.8 %; Lymphocytes # (auto) 1.48 K/uL (1.2-3.4); Lymphocytes % (auto) 14.2 %; Mean Corpuscular Hemoglobin 28.3 pg (25-34); Mean Corpuscular Hgb Conc 32.7 g/dL (32-36); Mean Corpuscular Volume 86.7 fL (80-100); Mean Platelet Volume 8.8 fL (7.4-10.4); Monocytes # (auto) 0.54 K/uL (0.11-0.59); Monocytes % (auto) 5.2 %; Neutrophils # (auto) 8.02 K/uL (1.4-6.5); Platelet Count 315 K/uL (130-400); RDW Coefficient of Variation 13.5 % (11.5-14.5); RDW Standard Deviation 43.3 fL (36.4-46.3); Red Blood Count 4.13 M/uL (4.7-6.1); White Blood Count 10.41 K/uL (4.8-10.8)
--- NOTE | 2020-12-23 08:47 | Hospitalist Progress Note ---
Date of Service December 23, 2020 Assessment & Plan (1) Cellulitis of foot, right: 12/20/20 Incision and Draingage Right Heel Abcess Plantar and Lateral x2, Irrigation and Debridement Plantar Heel Puncture, Debridement skin subcutaneous fat fascia Surgeon: Dylon Valero (initially was getting better on abx then worsened) -- now doing better again, continue current dapto/zosyn cultures from OR growing stark sensitive staph aureus, but was on antibiotics MRI foot 12/15 IMPRESSION: 1. Subcutaneous emphysema of the heel pad with mild cellulitis. No abscess or evidence of osteomyelitis. 2. Moderate to extensive subcutaneous edema of the foot and ankle. 3. Atrophy of the intrinsic musculature may be secondary to chronic denervation changes. Enhancement of the abductor hallucis and flexor digitorum brevis musculature may also be secondary to chronic denervation changes versus myositis. ID recommends de escalation to iv cefazolin and have 2 weeks Duration of treatment with oral medication at discharge for MSSA (2) Hypertension: BP reasonable overall given the situation (3) Puncture wound of foot, right: As above -Wound care -Antibiotics -Tetanus shot -will need education on foot checks given neuropathy (4) Chronic kidney disease: continue to follow creatinine off diureticscreatinine has trended back down, will continue to follow periodically (5) Dyslipidemia: -Statin on hold while on Daptomycin (6) Chronic diastolic CHF (congestive heart failure): was initially appearing mildly acute on chronic at admission; now has been mostly on the dry side of euvolemic (7) CAD (coronary artery disease): asymptomatic, stable (8) GERD (gastroesophageal reflux disease): Chronic -Continue Protonix 40mg po q AM (9) Diabetes mellitus type 2, insulin dependent: sugars fairly easy to control here, have tried multiple times to educate on "why to care" as well as lifestyle management, critical importance of control - some days he is more receptive than others. Continue pharmacy glycemic management (10) Obesity, morbid, BMI 40.0-49.9: actually now today listed as 50.9 (11) DVT prophylaxis: lovenox (12) Nocturnal hypoxemia: recieved verbal report of nocturnal hypoxia will see if meets insurance qualification of need for home Oxygen (13) Discharge planning issues: anticipate home on PO abx once postop inpatient care completed / able to switch from IV to PO abx Admission and Anticipated Discharge Date Admission Date: December 14, 2020 Subjective Pt is awake and alert, he is having no pain but does admit that his neuropathy is helpful for that. We did discuss his home oxygen need by our nocturnal oximetry testing. overall is improving will have ID consult to help determine the duration of treatment of diabetic foot infection and appropriate antibiotic choice. Review of Systems Review of Systems: Mild distress and fatigue no headache, no visual changes no speech or swallowing issues no chest pain, pressure or palpitations no shortness of breath, cough or wheezes no abdominal pain, nausea or vomiting, diarrhea or constipation no dysuria, hematuria or frequency Right lower extremity swelling from procedure appropriate for postop course no back pain, CVA tenderness or radicular pain His right foot is dressed he has good capillary refill distally no focal signs of weakness does have stocking glove distribution neuropathy from his diabetes no complaints of anxiety or depression.. Physical Exam Physical Exam: The patient appeared well nourished and normally developed. Vital signs as documented. Discussed nocturnal hypoxemia and need for home oxygen Head exam is normocephalic atraumatic Neck is without JVD, thyromegaly, or carotid bruits. Lungs are clear to auscultation, no focal loss of breath sounds Cardiac exam, Rhythm is regular.. No murmurs, rubs or gallops. Abdominal exam reveals normal bowel sounds, soft non tender, no masses Extremity L extremity has dressing in place his toes are protruding he is ability to move his toes with good capillary refill I cannot examine the surgical site due to dressing Neurologic exam is alert and oriented, peripheral neuropathy is present Psychologically is without concerns for anxiety or depression Results & Data Results & Data ([facility]) Vital Signs (Past 12 Hours) Vital Signs Temp Pulse Pulse Resp BP BP Pulse Ox 12/23/20 07:56 98.1 F 82 16 169/89 H 92 12/23/20 03:29 98.2 F 87 18 148/74 H 92 12/22/20 23:57 83 12/22/20 23:35 99.0 F 89 20 151/72 H 92 PG Care Time/CCT Total # of Minutes Spent Total Time Spent with Patient: Total time spent is greater than 50% in coordination of care (as documented) at patient's floor/unit and/or counseling patient: Coding Level of Care Code 17442 Subseq Hosp Care Lvl 3 Diagnoses Cellulitis of foot, right L03.115 Hypertension I10 Hypertension type: essential hypertension Puncture wound of foot, right S91.331A Encounter type: initial encounter Chronic kidney disease N18.9 Chronic kidney disease stage: unspecified stage Dyslipidemia E78.5 Chronic diastolic CHF (congestive heart failure) I50.32 CAD (coronary artery disease) I25.10 Associated angina: without angina Coronary Disease-Associated Artery/Lesion type: [place] artery [place] vs. transplanted heart: [place] heart GERD (gastroesophageal reflux disease) K21.9 Esophagitis presence: esophagitis presence not specified Diabetes mellitus type 2, insulin dependent E11.9; Z79.4 Obesity, morbid, BMI 40.0-49.9 E66.01 DVT prophylaxis Z29.9 Nocturnal hypoxemia G47.34 Discharge planning issues Z02.9 (1) CAD (coronary artery disease) Associated angina: without angina Coronary Disease-Associated Artery/Lesion type: [place] artery [place] vs. transplanted heart: [place] heart Qualified Code(s): I25.10 - Atherosclerotic heart disease of [place] coronary artery without angina pectoris (2) Chronic kidney disease Chronic kidney disease stage: unspecified stage Qualified Code(s): N18.9 - Chronic kidney disease, unspecified (3) GERD (gastroesophageal reflux disease) Esophagitis presence: esophagitis presence not specified Qualified Code(s): K21.9 - Gastro-esophageal reflux disease without esophagitis (4) Hypertension Hypertension type: essential hypertension Qualified Code(s): I10 - Essential (primary) hypertension (5) Puncture wound of foot, right Encounter type: initial encounter Qualified Code(s): S91.331A - Puncture wound without foreign body, right foot, initial encounter
[2020-12-23] MEDS ORDERED: INSULIN GLARGINE 100 UNIT/ML VIAL SC SCH ×2 (09:00→21:00)
[2020-12-23 09:01] LABS: BUN Creatinine Ratio 14.3 (10-20); Calcium 9.8 mg/dl (8.5-10.1); Creatinine Clr Calc Pharmacy 87.5 ml/min; Est GFR (African American) 64.6 ml/min; Est GFR (Non-African American) 55.8 ml/min; Potassium 4.2 mmol/L (3.5-5.1)
--- NOTE | 2020-12-23 09:58 | Orthopedic Progress Note ---
Date of Service December 23, 2020 Assessment & Plan (1) Cellulitis of foot, right: Diabetic foot puncture wound right heel, abscess plantar right heel pad, abscess lateral heel pad, necrotic tissue plantar heel including skin, subcutaneous tissue, fascia right lower extremity Postop day 2 PT/OT protocols. Nonweightbearing right lower extremity DVT prophylaxis-okay to resume enoxaparin if needed per medicine service. Pain management as written. OR cultures still pending. Showing gram-positive cocci on Gram stain. Continue current antibiotics We will have wound care nursing review his wounds today for recommendations for further dressing changes. Admission and Anticipated Discharge Date Admission Date: December 14, 2020 Subjective Postop day 3 Patient sitting at the bedside. He is able to get back into bed on his own power. No complaints this morning. Feeling well. Pain controlled. Physical Exam Physical Exam: Scant drainage noted on the plantar surface of the dressing. Dressing removed. Remainder of packing on the plantar surface was removed. Continues with some mild maceration of the skin edges around where the packing was. Lateral wound also has some mild maceration noted. No overt purulent drainage at this time. I cannot express any purulent drainage on palpation. Erythema continues to resolve and swelling again is a little bit better today. Wounds redressed. Results & Data ([facility]) Vital Signs (Past 12 Hours) Vital Signs Temp Pulse Pulse Resp BP BP Pulse Ox 12/23/20 07:56 36.7 C 82 16 169/89 H 92 12/23/20 03:29 36.8 C 87 18 148/74 H 92 12/22/20 23:57 83 12/22/20 23:35 37.2 C 89 20 151/72 H 92
--- NOTE | 2020-12-23 13:00 | Pharmacy Report ---
Pharmacy Glycemic Short Note 2 - Date of Service December 23, 2020 - Glycemic Short BSG Results (Last 24 hours): 12/22/20 12/22/20 12/22/20 16:33 16:35 16:55 Glucose POC Glucose 69 L* 71 76 12/22/20 12/22/20 12/23/20 16:59 20:36 07:32 Glucose POC Glucose 78 93 143 H 12/23/20 12/23/20 08:04 11:47 Glucose 141 H POC Glucose 205 H OUTPATIENT ANTIDIABETIC REGIMEN: * Basaglar 60 units SQ AM * Humalog 10 units SQ TID + SSI ASSESSMENT: 12/23 * BSGs yesterday of 184, 169, 69, and 93 mg/dL * trend continues with low pre-dinner BSG * Received 175 units of insulin (95 units of basal and 80 units of prandial/correctional bolus) * Will shift some of the AM Lantus to the evening tonight and loosen carb coverage at lunch/dinner/HS, which may help with observed low evening BSGs * Remains on daptomycin and Zosyn 12/22 * Pt has received 151 units of insulin over the past 24hrs * 80 units of basal with Lantus * 71 units of bolus with NovoLog * BSGs 142-96-68/68/142-125-184 mg/dl * Pt with LOW BSG prior to dinner yesterday - likely too much CHO coverage given at lunch when BSG = 96. Will loosen CHO coverage for lunch, dinner, and HS. Aggressive CHO coverage still needed at breakfast. * BSG rises from HS to AM 125 --> 184 mg/dl indicating that Lantus is not lasting 24hrs for patient. Will add a small HS dose of Lantus 12/21 * Pt has received 80 units of insulin over the past 24hrs * 65 units of basal with Lantus * 15 units of bolus with NovoLog * BSGs 409-006-382-827-320-550-96 mg/dl * Significant decrease in total daily insulin dose yesterday secondary to NPO for I&D * Will resume basal insulin of 80 units as this worked well on 12/19 * CR initially tightened this morning but BSG 142 --> 96 at lunch. Pt is not comfortable with BSG < 100 therefore will loosen CR 6/6 * 50 year old obese male admitted for cellulitis of foot, found thumb tack in bottom of foot, unknown how long it was there, surgery consulted, no surgery planned at this time, on IV antibiotics. * Admitted with hyperglycemia, received 10 units IV regular insulin x2, 37 units SQ NovoLog, 40 units Lantus, and blood sugar came down to 193mg/dl * A1c pending, on basal bolus at home, will use as inpatient and titrate to goal blood sugar PLAN FOR INPATIENT GLYCEMIC CONTROL: * Basal insulin * Lantus 70 units SC qAM * Lantus 15-25 units SC HS (see EHR for details) * Bolus insulin * NovoLog per scale ACHS or Q6hrs while NPO * Goal Range: Low 110 mg/dL - High 140 mg/dL * Correction Factor: 10 mg/dL/unit * Nutritional / Prandial insulin per carb ratio of 1 unit per 2.5 grams CHO consumed at breakfast only and 4 for all other meals DISCHARGE PLAN: * A1c 13.5% on admission - goal less than 7% * A1c is greater than or equal to 10% it is recommended to consider triple therapy with metformin + basal insulin + (GLP1-RA OR prandial insulin). May need to continue additional antidiabetic agent based on patient specific factors (efficacy, hypo risk, weight gain/loss, side effects, cost) * Patient met with DM educator and patient had trialed metformin in the past, however it was discontinued due to CKD and patient also not able to tolerate due to side effects. Per notes, patient not willing to retrial metformin * Patient could benefit from increase in basal insulin and novolog on discharge - could consider increasing to Lantus 80 units daily (HS dose TBD) and Novolog 25 units TIDM + SSI * Patient would benefit from education on healthy lifestyle (diet - avoiding sugary drinks, eating lower carbs; exercise, etc) * Would encourage close followup outpatient as regimen likely will need titrated. He follows his PCP for DM management. DM educator discussed possible benefits of adding SGLT-2 or GLP-1, patient wanting to check cost/review with his PCP before starting. * Will continue to follow and make adjustments to discharge plan as necessary
--- NOTE | 2020-12-23 18:27 | Hospitalist Progress Note ---
Date of Service December 23, 2020 Assessment & Plan (1) Cellulitis of foot, right: 12/20/20 Incision and Draingage Right Heel Abcess Plantar and Lateral x2, Irrigation and Debridement Plantar Heel Puncture, Debridement skin subcutaneous fat fascia Surgeon: Dylon Valero (initially was getting better on abx then worsened) -- now doing better again, ID recommends targeting treatment for MSSA cultures from OR growing stark sensitive staph aureus, but was on antibiotics MRI foot 12/15 IMPRESSION: 1. Subcutaneous emphysema of the heel pad with mild cellulitis. No abscess or evidence of osteomyelitis. 2. Moderate to extensive subcutaneous edema of the foot and ankle. 3. Atrophy of the intrinsic musculature may be secondary to chronic denervation changes. Enhancement of the abductor hallucis and flexor digitorum brevis musculature may also be secondary to chronic denervation changes versus myositis. ID recommends de escalation to iv cefazolin and have 2 weeks Duration of treatment with oral medication at discharge for MSSA (2) Hypertension: BP reasonable overall given the situation (3) Puncture wound of foot, right: As above -Wound care -Antibiotics -Tetanus shot -will need education on foot checks given neuropathy (4) Chronic kidney disease: continue to follow creatinine off diureticscreatinine has trended back down, will continue to follow periodically (5) Dyslipidemia: -Statin on hold while on Daptomycin (6) Chronic diastolic CHF (congestive heart failure): was initially appearing mildly acute on chronic at admission; now has been mostly on the dry side of euvolemic (7) CAD (coronary artery disease): asymptomatic, stable (8) GERD (gastroesophageal reflux disease): Chronic -Continue Protonix 40mg po q AM (9) Diabetes mellitus type 2, insulin dependent: sugars fairly easy to control here, have tried multiple times to educate on "why to care" as well as lifestyle management, critical importance of control - some days he is more receptive than others. Continue pharmacy glycemic management (10) Obesity, morbid, BMI 40.0-49.9: actually now today listed as 50.9 (11) DVT prophylaxis: lovenox (12) Nocturnal hypoxemia: recieved verbal report of nocturnal hypoxia will see if meets insurance qualification of need for home Oxygen (13) Discharge planning issues: anticipate home on PO abx once postop inpatient care completed / able to switch from IV to PO abx Admission and Anticipated Discharge Date Admission Date: December 14, 2020 Results & Data Results & Data ([facility]) Vital Signs (Past 12 Hours) Vital Signs Temp Pulse Resp BP BP Pulse Ox 12/23/20 16:05 98.2 F 80 16 157/95 H 94 12/23/20 12:13 170/80 H 12/23/20 12:10 177/81 H 12/23/20 12:00 171/103 H 12/23/20 11:21 97.5 F L 81 16 197/80 H 196/99 H 93 12/23/20 07:56 98.1 F 82 16 169/89 H 92 PG Care Time/CCT Total # of Minutes Spent Total Time Spent with Patient: Total time spent is greater than 50% in coordination of care (as documented) at patient's floor/unit and/or counseling patient: Coding Level of Care Code None Diagnoses Cellulitis of foot, right L03.115 Hypertension I10 Hypertension type: essential hypertension Puncture wound of foot, right S91.331A Encounter type: initial encounter Chronic kidney disease N18.9 Chronic kidney disease stage: unspecified stage Dyslipidemia E78.5 Chronic diastolic CHF (congestive heart failure) I50.32 CAD (coronary artery disease) I25.10 Coronary Disease-Associated Artery/Lesion type: [place] artery [place] vs. transplanted heart: [place] heart Associated angina: without angina GERD (gastroesophageal reflux disease) K21.9 Esophagitis presence: esophagitis presence not specified Diabetes mellitus type 2, insulin dependent E11.9; Z79.4 Obesity, morbid, BMI 40.0-49.9 E66.01 DVT prophylaxis Z29.9 Nocturnal hypoxemia G47.34 Discharge planning issues Z02.9 (1) Hypertension Hypertension type: essential hypertension Qualified Code(s): I10 - Essential (primary) hypertension (2) Puncture wound of foot, right Encounter type: initial encounter Qualified Code(s): S91.331A - Puncture wound without foreign body, right foot, initial encounter (3) Chronic kidney disease Chronic kidney disease stage: unspecified stage Qualified Code(s): N18.9 - Chronic kidney disease, unspecified (4) CAD (coronary artery disease) Coronary Disease-Associated Artery/Lesion type: [place] artery [place] vs. transplanted heart: [place] heart Associated angina: without angina Qualified Code(s): I25.10 - Atherosclerotic heart disease of [place] coronary artery without angina pectoris (5) GERD (gastroesophageal reflux disease) Esophagitis presence: esophagitis presence not specified Qualified Code(s): K21.9 - Gastro-esophageal reflux disease without esophagitis
[2020-12-23] MEDS: ceFAZolin 2000MG 2,000 MG/15 ML SYR IV SCH (20:20)
[2020-12-23] MEDS: SENNA 8.6 MG TAB PO SCH (20:25)
[2020-12-24] MEDS: ceFAZolin 2000MG 2,000 MG/15 ML SYR IV SCH ×2 (04:46→12:54)
[2020-12-24] MEDS: ACETAMINOPHEN 325 MG TAB PO PRN (04:55)
[2020-12-24 08:30] LABS: Est GFR (African American) 64.1 ml/min; Est GFR (Non-African American) 55.3 ml/min
[2020-12-24] MEDS ORDERED: INSULIN GLARGINE 100 UNIT/ML VIAL SC SCH ×2 (09:00→21:00)
[2020-12-24] MEDS: INSULIN ASPART 100 UNITS/ML VIAL SC SCH ×2 (09:18→13:01)
[2020-12-24] MEDS: carvediloL 6.25 MG TAB PO SCH (09:25)
[2020-12-24] MEDS: ASPIRIN 81 MG ECTAB PO SCH (09:25)
[2020-12-24] MEDS: DOCUSATE SODIUM 100 MG CAP PO SCH (09:25)
[2020-12-24] MEDS: PANTOprazole 40 MG TAB PO SCH (09:26)
[2020-12-24] MEDS: lisinopril 5 MG TAB PO SCH (09:26)
[2020-12-24] MEDS: PSYLLIUM 58.6% POWDER PACKET PO SCH (09:26)
[2020-12-24] MEDS: ENOXAPARIN INJ 40 MG/0.4 ML SYR SQ SCH (09:26)
[2020-12-24] MEDS: MULTIVITAMIN TAB PO SCH (09:27)
--- NOTE | 2020-12-24 19:50 | Discharge Summary ---
Date of Service December 24, 2020 Admission HPI Per Admitting Provider Juan Carlos Dutta is a 50yo male with poorly controlled DM with peripheral neuropathy, HTN, HLP, NICM and CAD presenting with infection of right foot. Patient has had progressive pain and swelling of the right foot over the last several days. Yesterday he developed worsening pain in the heel of the right foot as well as aching pain in ankle/knee and hip. He examined his foot and found that there was a marisol tack in his heel. He does not know exactly when he stepped on it. He is uncertain of the date of his last tetanus vaccination. He denies fever/chills/nausea/vomiting/diarrhea or constipation. Denies chest mavis n/cough/wheeze/SOB/edema/weight gain or orthopnea. He has had increased thirst and urination over the last several days. He has not been checking his blood sugar or taking any of his medications for the last several days. ER Course: Ceftriaxone, Insulin 10u IV, Flagyl, Vancomycin Principal Diagnosis diabetic foot ulcer, MSSA soft tissue only' I&D Dr Valero 12/20/20 Discharge Exam The patient appeared well Vital signs as documented. Patient is breathing appeared unlabored. Is tolerating lunch prior to discharge Right lower extremity is bandaged and swollen he is limited distal sensation is diabetic neuropathy. His heel has a suture in place he will need follow-up with both wound care for dressing changes and orthopedic surgical consultation. Discharge Data Allergies Allergy/AdvReac Type Severity Reaction Status Date / Time No Known Allergies Allergy Verified 12/20/20 14:43 Consultations 12/14/20 18:23 ED Decision to Admit Stat 12/14/20 21:11 Consult General Surgery Routine 12/18/20 14:36 Consult Orthopedic Surgery Routine 12/23/20 08:47 Consult Infectious Diseases Routine Procedures Performed Operation Date: 12/20/20 08:25 Actual Procedures p Incision and Draingage Right Heel Abcess Plantar and Lateral x2, Irrigation and Debridement Plantar Heel Puncture, Debridement skin subcutaneous fat fascia(Right) - Dylon Valero DO Ordered Studies 12/15/20 02:12 US venous doppler LE RT Routine 12/15/20 11:51 MR ankle RT wo/w con Routine Diabetes Follow up Diabetes Follow-up Needed for HgbA1c >9% Hospital Course (1) Cellulitis of foot, right: 12/20/20 Incision and Draingage Right Heel Abcess Plantar and Lateral x2, Irrigation and Debridement Plantar Heel Puncture, Debridement skin subcutaneous fat fascia Surgeon: Dylon Valero (initially was getting better on abx then worsened) -- now doing better again, ID recommends targeting treatment for MSSA cultures from OR growing stark sensitive staph aureus, infectious disease feels this is soft tissue infection only MRI foot 12/15 IMPRESSION: 1. Subcutaneous emphysema of the heel pad with mild cellulitis. No abscess or evidence of osteomyelitis. 2. Moderate to extensive subcutaneous edema of the foot and ankle. 3. Atrophy of the intrinsic musculature may be secondary to chronic denervation changes. Enhancement of the abductor hallucis and flexor digitorum brevis musculature may also be secondary to chronic denervation changes versus myositis. ID recommends de escalation to iv cefazolin and have 2 weeks Duration of treatment with oral medication at discharge for MSSA (2) Hypertension: Coreg Bumex and lisinopril (3) Puncture wound of foot, right: As above will follow up with wound care and also orthopedic surgery -Wound care -Antibiotics -Tetanus shot -will need education on foot checks given neuropathy (4) Chronic kidney disease: continue to follow creatinine off diureticscreatinine has trended back down, will continue to follow periodically (5) Dyslipidemia: -Statin on hold while on Daptomycin (6) Chronic diastolic CHF (congestive heart failure): was initially appearing mildly acute on chronic at admission; now has been mostly on the dry side of euvolemic (7) CAD (coronary artery disease): asymptomatic, stable (8) GERD (gastroesophageal reflux disease): Chronic -Continue Protonix 40mg po q AM (9) Diabetes mellitus type 2, insulin dependent: sugars fairly easy to control here, have tried multiple times to educate on "why to care" as well as lifestyle management, critical importance of control - some days he is more receptive than others. Continue pharmacy glycemic management (10) Obesity, morbid, BMI 40.0-49.9: actually now today listed as 50.9 (11) DVT prophylaxis: lovenox (12) Nocturnal hypoxemia: recieved verbal report of nocturnal hypoxia will see if meets insurance qualification of need for home Oxygen (13) Discharge planning issues: anticipate home on PO abx once postop inpatient care completed / able to switch from IV to PO abx Total Time Total Time Spent Total Time Spent (In Minutes): It required greater than 30 minutes to prepare this patient for discharge Discharge Plan Discharge Items Patient Disposition: Home - Home Health Services Reason For Visit: DIABETIC FOOT WOUND,RLE Discharge Diagnosis: diabetic foot infection with abscess surgical I&D Condition on Discharge: Good Activity: Per Instructions section Activity Comment: care to avoid pressure on heel Non-emergency contact: Primary Care Provider and Surgeon Call non-emergency contact if: you have any medication questions, your symptoms worsen and you have a fever Follow-up/Referrals: Idris Moreno III, MD [Primary Care Provider] - 01/03/21 3:00 pm Arline Castro CRNP [Nurse Practitioner] - 12/30/20 8:30 am Diet: Carb Consistent or DM2 Addtl Attending Provider Instructions: Foot infection -Fortunately, while the infection did seem to be somewhat deep, it did not have any serious involvement of underlying structures. Saying the same thing differently, it appears that this should get better with antibiotics and time. -We will send you home to finish out a total of 10 days of keflex per ID consult - -We will have you continue to follow-up with Dr. Moreno to ensure that it looks like the foot is continuing to heal well and that the wound is healing well -Since you unfortunately have extremely limited sensation in your feet, to prevent this from happening again, check your feet daily to look for any cuts, ulcers, or objects (like the thumbtack that started this incident) since you cannot rely on feeling if anything is wrong. In doing this, you should hopefully be able to catch problems when they are still minor, and hopefully be able to avoid being hospitalized Type 2 diabetes -As we have been discussing, the uncontrolled diabetes is really the main cause of what led to the foot infection in multiple ways: -Because high sugar clogs arteries, your neuropathy in your feet is from high sugar clogging the blood flow and damaging the nerves to your feet -Because high sugar suppresses your immune system, once there was the thumbtack in your foot, having high sugars made it far easier for you to get the infection in your foot -Probably the most important "take-home point" is to remember that high sugars clog arteries. The higher you run, and the longer you run high, the more you are blocking of blood vessels you cannot get back. Is a reasonable rule, anytime your sugar is above 150-160, you are starting to do a degree of damage, higher is worse, and longer is worse. While things like neuropathy, blindness (because of high sugar clogging the small blood vessels in the back of your eye), and kidney disease (because high sugar clogs up the small webs of blood vessels that fundamentally make up our kidneys) are the most famous diabetes complications, actually heart attacks and strokes are the most common com plicationsbecause of high sugar leading to blockages of arteries to her heart and her brain. -As we discussed, generally speaking type 2 diabetes is largely driven/caused by our eating habits. What is great about that, is that that puts you in a large degree of control as far as getting your sugars in line. -Typically whenever we eat any sort of simple carbohydrate (bready, starchy, sugary, potato based, etc.) we spike her blood sugar as her body absorbs that food. That causes a high sugar in the moment, which can damage blood vessels. Further, to get the sugar out of our bloodstream and into our muscles, our pancreas makes a hormone called insulin. Because it takes more insulin to get higher sugar levels out of our bloodstream, over time with repeated exposure to high sugar/high insulin, our muscles get "addicted" to insulin. -When this happens, gradually our muscles want more and more insulin to get the same amount of sugar out. Eventually our pancreas is not able to keep up with the "demands" of our muscles, and so even though the pancreas is working as hard as it can/"red line"/over time, our muscle still want more insulinwhich then allows sugars to float high in her bloodstream for quite a while, worsening the damage. -Fortunately, starting to identify and then minimize (or better yet totally eliminate) the simple/starchy/sugary/potato based/bready carbs from her diet can both reduce how high her sugars get on any given day, and gradually unwind the "insulin addiction" that is one of the main driving factors of type 2 diabetes. -A nice trick for this is to check your sugar an hour or 2 after you eat. This will give you a very "real-time cause and effect" of what you ate, and how it affects your metabolism. When you eat something and see much higher sugars afterwards, that we will tell you that what you ate had a lot more starch/sugar than your body can handle, and avoiding it in the future can help prevent hyperglycemic damage, as well as to lessen the overall "addiction" you have to insulin. -Over time, with reducing/eliminating the simple carbohydrates from your diet, you should see your self become less and less diabetic. -Additionally, just as important, but easier for discussion, 20 to 30 minutes a day of light cardiovascular exercise will also burn off sugar while you are exercising, but also make your muscles less "addicted" to insulin for up to 12 hours. If you continue to do this repeatedly, you can gradually start to "rewrite your metabolism" -currently this are pretty worrisome as far as your sugar control. an A1c becomes a pretty good marker of what sugars have been running for the last 3 months (red cells live for about 90 days, and so during that time, the higher sugars run the more red cells get covered with sugar. nondiabetic A1c is about 5.6 or less, "prediabetic" is about 5.7-6.4, and generally "high sugars clog arteries" becomes a thing when your A1c is above 7.0. -as we discussed, people can make surprisingly massive changes in sugar control in a short period of time. while your A1c is currently 13.5, we've seen people improve A1c numbers sometimes by 5 points or more in 3 months (meaning that if you start to identify the carbs that are spiking your sugars, and start to eliminate them, you could realistically see sugars under good control or nearly good control in a few months -- and then from there be under good control/perfect control just a few months after that). medications for diabetes: - Addtl Picture Hanger Provider Instructions: ACTIVITY RECOMMENDATIONS: Limitations: No weight bearing to affected limb at all times. SPECIAL CARE INSTRUCTIONS: * Some drainage onto the dressing is normal and is no cause for alarm. * Some swelling is natural especially after walking. * When resting, keep your foot elevated above the level of your heart. * Call [facility] if you notice: -Increased drainage -Fever over 101 degrees F -Severe constant pain BANDAGE: * Daily dressing changes. * Keep bandage/cast dry at all times. FOLLOW UP VISIT WITH DR. VALERO If appointment is not already scheduled: Please call [facility] after you get home today to schedule a follow-up appointment for [address] Valero at . Pending Studies at Discharge: No Stand-Alone Forms: My [facility], Work/School Release, Smoking Cessation Medications and DC Order Prescriptions: New cephalexin 500 mg capsule 1,000 mg PO BID 14 Days Qty: 56 RF: 0 (DME) Oxygen Home Liters Per Minute 2 ea .Route HS Qty: 1 RF: 0 Continued carvedilol 6.25 mg tablet 6.25 mg PO BID Qty: 180 RF: 3 metolazone 5 mg tablet 5 mg PO DAILY PRN (Reason: weight gain) Qty: 30 RF: 11 pantoprazole 40 mg tablet,delayed release (DR/EC) 40 mg PO QAM Qty: 90 RF: 3 insulin lispro [Humalog Aden KwikPen U-100] 100 unit/mL insulin pen, half- unit 10 unit subcut TID Qty: 15 RF: 11 tramadol 50 mg tablet 50 mg PO BID PRN (Reason: pain) Qty: 60 RF: 0 Lantus Solostar U-100 Insulin 100 unit/mL (3 mL) insulin pen 60 unit SUBCUT QAM Qty: 15 RF: 11 ascorbate calcium (vitamin C) 500 mg tablet 500 mg PO QAM RF: 0 lisinopril 5 mg tablet 5 mg PO DAILY Qty: 30 RF: 11 aspirin 81 mg Tablet,Delayed Release (Dr/Ec) 81 mg PO QAM RF: 0 Metamucil 3.4 gram/5.4 gram Powder 1 tbsp PO QAM RF: 0 Probiotic Blend 2 billion cell-50 mg Capsule 1 cap PO QAM RF: 0 atorvastatin 20 mg tablet 20 mg PO DAILY RF: 0 bumetanide 2 mg tablet 2 mg PO DAILY RF: 0 No Action (DME) OneTouch Verio test strips Strip See Rx Instructions .ROUTE .MEDSUPPLY Qty: 125 RF: 11 (DME) pen needle, diabetic [BD Ultra-Fine [place] Pen Needle] 32 gauge x 5/32" needle See Dose Instructions .ROUTE .MEDSUPPLY Qty: 400 RF: 3 Discharge Orders: Discharge Order (Routine); Ordered 12/24/20 Ordered By: Naeem Escobar Admission Data Admit Date/Time: 12/14/20 19:36 Attending Provider: Naeem Escobar Admit Provider: Amanda Willard Primary Care Provider: Idris Moreno III Other Providers: Daysi Brand ; Amanda Willard ; Ye Davis ; Dylon Valero ; Jeremy Rodriguez ; Yessenia Harrison ; Harpreet Willard I. ; Amador Molina II ; Brigette Arboleda ; Kendall Martines ; [facility] Other Interventions: Discharge Summary Assessment (RN) Last Done: 12/24/20 13:53 Coding Level of Care Code D/C Day Management >30 mins Diagnoses Cellulitis of foot, right L03.115 Hypertension I10 Hypertension type: essential hypertension Puncture wound of foot, right S91.331A Encounter type: initial encounter Chronic kidney disease N18.9 Chronic kidney disease stage: unspecified stage Dyslipidemia E78.5 Chronic diastolic CHF (congestive heart failure) I50.32 CAD (coronary artery disease) I25.10 Coronary Disease-Associated Artery/Lesion type: [place] artery [place] vs. transplanted heart: mo[place]gan heart Associated angina: without angina GERD (gastroesophageal reflux disease) K21.9 Esophagitis presence: esophagitis presence not specified Diabetes mellitus type 2, insulin dependent E11.9; Z79.4 Obesity, morbid, BMI 40.0-49.9 E66.01 DVT prophylaxis Z29.9 Nocturnal hypoxemia G47.34 Discharge planning issues Z02.9
--- NOTE | 2020-12-31 14:24 | Coding Query ---
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 Please assist us with the question(s) below: Coding Question(s): Progress Notes 12/16/20 & 12/17/20 document, "Skin shows area of puncture wound with a little bit of dull dusky area around the ulceration" and Progress Note 12/18/20 documents, "Wound care consulted -Worsening of known ulcer thought to be secondary to venous insufficiency" and, "Foot cellulitisrelated to puncture wound and uncontrolled diabetes, undoubtedly did not notice the tach due to his dense neuropathy. Continue MRSA and Pseudomonas coverage given uncontrolled diabetes, probable poor vascular flow, and unknown duration of wound. Continue local wound care. consult ortho as new area of worsening may need debridement", with documentation on Progress Note 12/19/20 of, "New opened ulcer on the lateral aspect of the right foot" and, "Foot now with medial ulcer, lateral softness, and a large area of slough". The Discharge Summary documents Diabetic foot ulcer, MSSA soft tissue only". It is not clear if there are 2 ulcers on the right foot/heel or 1 and it is not clear if 1 was present on admission or not. Please specify below in your clinical opinion. ( ) There are 2 Diabetic Ulcers on the Right Foot with one Present on Admission and the other developed afterward ( ) There are 2 Diabetic Ulcers on the Right Foot with both occurring After admission ( ) There is 1 Diabetic Ulcer and it occurred After admission ( x) Other: Please Specify it was probably one ulcer initially, and as the overlying skin sloughed off, then in the area of skin the "second" ulcer arose, but really was likely just a continuation of the disrupted skin from the first. Physician's Response(s): Thank you Denisa Ornelas Principal Diagnosis: "that condition established after study, to be chiefly responsible for occasioning the admission of the patient to the hospital for care." Co-Existing Principal Diagnosis: "when two or more diagnoses equally meet the criteria for principal diagnosis as determined by the circumstances of admission, diagnostic work up, and/or therapy provided, and the Alphabetic Index, Tabular List, or another coding guideline does not provide sequencing direction, any one of the diagnoses may be sequenced first." "When the physician has documented what appears to be a current diagnosis in the body of the record, but has not included the diagnosis in the final diagnostic statement, the physician should be asked whether the diagnosis should be added." (Source Coding [facility] 2 QTR90. p3-4) ROSEANN
== END 2020-12-24 16:47 | disposition home health service (06) | DRG 622 ==
LOC: ED 15:02 → SUATTDRO 19:36 → 2W 19:36

== ENCOUNTER 2023-06-30 15:02 | Inpatient (IN) ==
--- NOTE | 2023-06-30 17:13 | Emergency Department Note ---
Impression & Plan CHF (congestive heart failure), Edema, Cardiomyopathy ED Provider Note NAME: MAIKEL NUR AGE: 53 SEX: M : 1970 ARRIVES VIA: Walk-In INFORMANT: Patient ED PROVIDER(S): Sunny Flynn DO CHIEF COMPLAINT: swelling in legs HPI: Patient is a 53-year-old male with a past medical history of diastolic CHF, morbid obesity, diabetes, hyperlipidemia venous stasis ulcers, cardiomyopathy, CAD, hypertension for swelling of his legs. He notes he held his Lasix today as he was supposed to get into nephrology and receive IV Lasix. He denies any new chest pain or shortness of breath. He admits to increased swelling of his legs. No belly pain. No nausea, vomiting, or diarrhea. No dysuria, urgency, or frequency. No other exacerbating or remitting factors. Additional history obtained from family member at bedside who confirms that they went over to nephrology's office today but did not see Dr. Dodge. He instructed him to come here as they could not obtain an IV for IV Lasix. ADDITIONAL HISTORY OBTAINED: Per HPI Chronic Medical/Social Conditions Affecting Care: Per HPI PAST MEDICAL HISTORY:See Below PAST SURGICAL HISTORY:See Below FAMILY HISTORY:See Below SOCIAL HISTORY:See Below HOME MEDICATIONS:See Below ALLERGIES:See Below VITALS:See Below PHYSICAL EXAMINATION: GENERAL: Sitting up in bed, alert, well appearing, well nourished, no distress, non-toxic, morbidly obese EYE EXAM: normal conjunctiva. OROPHARYNX: no exudate, no erythema, lips, buccal mucosa, and tongue normal and mucous membranes are moist NECK: supple, no nuchal rigidity, no adenopathy, non-tender LUNGS: Clear to auscultation. Normal chest wall mechanics HEART: no murmurs, S1 normal and S2 normal ABDOMEN: abdomen soft, non-tender, normo-active bowel sounds, no masses, no rebound or guarding. UPPER EXTREMITIES: upper extremities are grossly normal. LOWER EXTREMITIES: Extensive pitting edema in the bilateral lower extremities with seepage NEURO EXAM: Normal sensorium, cranial nerves II-XII grossly intact, normal speech, no gross weakness of arms, no gross weakness of legs. MEDICAL DECISION MAKING: Patient is a 53-year-old male who presents ER for above-stated complaint. He was referred in by nephrology for swelling of his bilateral lower extremities. IV was established blood work is obtained. Labs show leukocytosis of 11.7 thousand. Mild anemia 11.1. BMP with a creatinine of 3 from baseline what appears to be 2.4. Glucose of 188. LFTs bilirubin was unremarkable. CRP elevated at 4.2. Trope was negative. Lipase was negative. Chest x-ray was clean. Patient was updated bedside and I discussed the case with on-call nephrology. They recommend admission to hospitalist. Discussed case with the hospitalist for further evaluation Dr. Misael Cronin. Patient was given IV Lasix while in the ER. Consults/Care Managements Discussions: Per MDM Triage Nursing notes reviewed. Limited review of prior medical records performed Vital Signs: reviewed and remarkable for no significant abnormalities Differential diagnosis: Cardiac ischemia, aortic dissection, pulmonary embolism, pneumothorax, pneumonia, pericarditis, myocarditis, esophageal rupture, GERD, cholecystitis, pancreatitis, musculoskeletal, as well as other pathologies. ER treatment provided: See below Diagnostics interpreted by me include EKG and cardiac monitoring as listed below: -Cardiac Monitoring: An order was placed for continuous cardiac monitoring. The monitor shows a rate of 101 with sinus rhythm. -ECG: Sinus rhythm rate 94 Left axis No acute No PVCs -Laboratory studies:Interpreted by me as stated above in MDM and shown below. 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 Sleep apnea NO SLEEP STUDY PER PT Iron deficiency anemia Skin abscess Jul 2019, neck, s/p I&D with +MRSA culture Skin ulcer of left foot including toes CAD (coronary artery disease) Diabetic peripheral neuropathy CKD (chronic kidney disease) F/U DR DODGE CHF (congestive heart failure) Myocardial infarction "silent" between the time frame of [id number] ??--follows with [facility] Non-ischemic cardiomyopathy Per cardio records - (35% July 2017, 55% January 2018 and July 2018) Hx MRSA infection Diabetic gastroparesis Chronic back pain GERD (gastroesophageal reflux disease) HTN (hypertension) Surgical History S/P foot surgery, right DEBRIDEMENT History of anesthesia reaction woke up during last colonoscopy 2018 History of surgery left leg d/t cellulitis History of left knee surgery History of incision and drainage neck History of esophagogastroduodenoscopy (EGD) Hx of hand surgery right hand d/t cellulitis issues ? Hx of cardiac cath 2018 @ [facility] no stents Hx of colonoscopy LAST 2019 Family History Family/Other Colon cancer Father Prostate cancer Diabetes Hypertension Brother Diabetes Mother Diabetes Grandfather (Paternal) Family hx of colon cancer Other No family history of adverse response to anesthesia No significant family history Social History Smoking Status: Never smoker Second Hand Exposure: No; Do You Dip or Chew Tobacco: No; Hx Alcohol Use: No Hx Substance Use: No Preferred Language: Bulgarian Communication Ability: Effective Visual Impairment: Limited Hearing Ability: Normal Geochemical Manager Required: No Beliefs That Will Affect Care: None marital status: Single Current Living Situation: Parent Current Living Situation Comment: Pt. lives w/ mother and father current occupational status: employed current occupation: [employer], currently off on medical leave How many Children do You have: 0 Feels Safe at Home: Yes Diet: regular Diet Comment: watches what he does concerning diabetes caffeine: Yes during the past year weight has: remained stable Dental Care, Regularly: No Seatbelt Use: always Sunscreen Use: No Assistive Devices: Cane Allergies Allergies Allergy/AdvReac Type Severity Reaction Status Date / Time sulfamethoxazole AdvReac Severe kidney Verified 06/02/23 14:25 [From Bactrim] injury trimethoprim [From Bactrim] AdvReac Severe kidney Verified 06/02/23 14:25 injury Home Meds Home Medications Medication Instructions Recorded Confirmed aspirin 81 mg tablet,delayed 81 mg PO QAM 04/03/18 06/30/23 release ascorbate calcium (vitamin C) 500 500 mg PO QAM 12/25/19 06/30/23 mg tablet L.acidophil-L.casei-B.bifid-B.longum-FOS 1 cap PO QAM 01/31/20 06/30/23 2 billion cell-50 mg capsule (Probiotic Blend) psyllium husk 3.4 gram/5.4 gram 1 tbsp PO QAM PRN Constipation 09/28/22 06/30/23 oral powder (Metamucil) Previous Rx's Medication Instructions Recorded losartan 25 mg tablet 25 mg PO DAILY #90 tabs 07/24/22 varicella-zoster glycoE [id number] 0.5 ml IM ONCE #1 ea 09/21/22 adj(PF) 50 mcg/0.5 mL IM susp, kit (Shingrix (PF)) insulin syringe-needle U-100 1 mL #100 ea 09/28/22 25 gauge x 5/8" (BD Insulin Syringe) blood sugar diagnostic (OneTouch #200 ea 10/07/22 Verio test strips) potassium chloride 20 mEq 60 meq (3 x 20 mEq) PO BID #540 11/03/22 tablet,extended release tabs spironolactone 50 mg tablet 50 mg PO DAILY #90 tabs 12/15/22 pen needle, diabetic 31 gauge x #300 ea 12/17/22 3/16" bupropion HCl 150 mg 24 hr tablet, 150 mg PO QAM #90 tabs 12/18/22 extended release carvedilol 6.25 mg tablet 6.25 mg PO BID #180 tabs 02/16/23 magnesium oxide 400 mg PO BID #180 tabs 03/01/23 pantoprazole 40 mg tablet,delayed 40 mg PO QAM #90 tabs 03/22/23 release atorvastatin 80 mg tablet (Lipitor) 80 mg PO QPM 90 days #90 tabs 04/16/23 cholecalciferol (vitamin D3) 125 125 mcg PO DAILY #30 caps 05/10/23 mcg (5,000 unit) capsule torsemide 100 mg tablet 100 mg PO BID #60 tabs 05/10/23 dulaglutide 3 mg/0.5 mL 3 mg (0.5 mL) subcut ONCE #2 mL 06/02/23 subcutaneous pen injector (Trulicity) insulin regular hum U-500 conc 500 150 unit (0.3 mL) subcut TID #84 mL 06/02/23 unit/mL(3 mL) subcut pen (Humulin R U-500 (Conc) Insulin Kwikpen) FreeStyle Radha 3 Sensor #2 ea 06/09/23 (blood-glucose sensor) tramadol 50 mg tablet 50 mg PO BID PRN pain #60 tabs 06/17/23 metolazone 5 mg tablet 5 mg PO BID edema #180 tabs 06/29/23 Results & Data (ED) Vital Signs Vital Signs - 24 hr 06/30/23 15:29 06/30/23 17:35 06/30/23 17:37 Temperature 36.9 C Temperature Source Oral Pulse Rate 94 H 94 H Pulse Rate [Apical] 94 H Pulse Rate from SpO2 Sensor 94 H Respiratory Rate 18 16 18 Blood Pressure 120/64 Blood Pressure [Left Arm] 164/69 H Blood Pressure Mean 82 Blood Pressure Mean [Left Arm] 100 Pulse Oximetry 93 93 93 Oxygen Delivery Method Room Air Room Air Sepsis Recent Fever Within 48 Hours No Sepsis New/Unexplained Change in Mental Status No Sepsis Action Taken by Nursing No Action Required 06/30/23 17:40 06/30/23 17:50 06/30/23 17:50 Temperature Temperature Source Pulse Rate 95 H 94 H 96 H Pulse Rate [Apical] Pulse Rate from SpO2 Sensor 96 H 93 H Respiratory Rate 19 17 Blood Pressure Blood Pressure [Left Arm] Blood Pressure Mean Blood Pressure Mean [Left Arm] Pulse Oximetry 94 91 Oxygen Delivery Method Sepsis Recent Fever Within 48 Hours Sepsis New/Unexplained Change in Mental Status Sepsis Action Taken by Nursing 06/30/23 18:00 06/30/23 18:10 06/30/23 18:17 Temperature Temperature Source Pulse Rate 97 H 98 H 96 H Pulse Rate [Apical] Pulse Rate from SpO2 Sensor 98 H 96 H Respiratory Rate 17 29 H 15 Blood Pressure Blood Pressure [Left Arm] Blood Pressure Mean Blood Pressure Mean [Left Arm] Pulse Oximetry 92 94 Oxygen Delivery Method Sepsis Recent Fever Within 48 Hours Sepsis New/Unexplained Change in Mental Status Sepsis Action Taken by Nursing 06/30/23 18:17 06/30/23 18:20 06/30/23 18:30 Temperature Temperature Source Pulse Rate 98 H 99 H Pulse Rate [Apical] Pulse Rate from SpO2 Sensor Respiratory Rate 17 17 Blood Pressure 155/83 H Blood Pressure [Left Arm] Blood Pressure Mean 102 Blood Pressure Mean [Left Arm] Pulse Oximetry Oxygen Delivery Method Sepsis Recent Fever Within 48 Hours Sepsis New/Unexplained Change in Mental Status Sepsis Action Taken by Nursing 06/30/23 18:40 06/30/23 18:50 06/30/23 19:00 Temperature Temperature Source Pulse Rate 100 H 98 H Pulse Rate [Apical] Pulse Rate from SpO2 Sensor 100 H 98 H Respiratory Rate 20 20 Blood Pressure 107/87 Blood Pressure [Left Arm] Blood Pressure Mean 94 Blood Pressure Mean [Left Arm] Pulse Oximetry 90 92 Oxygen Delivery Method Sepsis Recent Fever Within 48 Hours Sepsis New/Unexplained Change in Mental Status Sepsis Action Taken by Nursing 06/30/23 19:00 06/30/23 19:10 06/30/23 19:20 Temperature Temperature Source Pulse Rate 101 H 101 H 99 H Pulse Rate [Apical] Pulse Rate from SpO2 Sensor 100 H Respiratory Rate 16 16 15 Blood Pressure Blood Pressure [Left Arm] Blood Pressure Mean Blood Pressure Mean [Left Arm] Pulse Oximetry 90 Oxygen Delivery Method Sepsis Recent Fever Within 48 Hours Sepsis New/Unexplained Change in Mental Status Sepsis Action Taken by Nursing Laboratory Data 06/30/23 15:50 06/30/23 15:50 Lab Results 06/30/23 Range/Units 15:50 WBC 11.78 H (4.8-10.8) K/ul RBC 4.03 L (4.70-6.10) M/uL Hgb 11.1 L (14.0-18.0) g/dl Hct 34.3 L (42.0-52.0) % MCV 85.1 (80.0-100.0) fL MCH 27.5 (25.0-34.0) pg MCHC 32.4 (32.0-36.0) g/dL RDW Std Deviation 45.1 (36.4-46.3) fL RDW Coeff of [place] 14.6 H (11.5-14.5) % Plt Count 288 (130-400) K/uL MPV 9.5 (9.4-12.4) fL Immature Gran % (Auto) 0.4 % Neut % (Auto) 83.9 % Lymph % (Auto) 7.7 % [place] % (Auto) 4.8 % Eos % (Auto) 2.9 % Baso % (Auto) 0.3 % Neut # (Auto) 9.87 H (1.40-6.50) K/uL Lymph # (Auto) 0.91 L (1.20-3.40) K/uL [place] # (Auto) 0.57 (0.11-0.59) K/uL Eos # (Auto) 0.34 (0.00-0.50) K/uL Baso # (Auto) 0.04 (0.00-0.20) K/uL Immature Gran # (Auto) 0.05 (0.01-0.20) K/uL Sodium 131 L (136-145) mmol/L Potassium 3.7 (3.5-5.1) mmol/L Chloride 88 L (98-107) mmol/L Carbon Dioxide 32 (21-32) mmol/L Anion Gap 11 (3-11) BUN 89 H (6-23) mg/dl Creatinine 3.03 H D (0.6-1.4) mg/dl Est Cr Clr Drug Dosing Not Reportable Est GFR ( Amer) 26.0 ml/min Est GFR (Non-Af Amer) 22.4 ml/min BUN/Creatinine Ratio 29.4 H (10-20) Glucose 188 H (70-99(Fasting)) mg/dl Calcium 9.7 (8.6-10.3) mg/dl Magnesium 1.8 (1.7-2.4) mg/dl Total Bilirubin 0.5 (0.2-1.0) mg/dl AST 15 (13-39) U/L ALT 16 (7-52) U/L Alkaline Phosphatase 96 (34-104) U/L Troponin I High Sens 12.5 (0-20) pg/ml C-Reactive Protein 4.20 H (0-0.5) mg/dl B-Natriuretic Peptide 46 (0-100) pg/ml Total Protein 8.1 (6.0-8.3) gm/dl Albumin 4.0 (3.4-5.0) gm/dl Globulin 4.1 H (2.5-4.0) gm/dl Albumin/Globulin Ratio 1.0 (0.9-2) Lipase 3 L (11-82) U/L Administered Medications Discontinued Medications Furosemide (Furosemide 40 Mg/4 Ml Vial) 80 mg IV NOW STA Stop: 06/30/23 17:58 Last Admin: 06/30/23 18:14 Dose: 80 mg Documented By: SHEMAR Ceftriaxone Sodium (Rocephin) 2,000 mg in 50 mls @ 100 mls/hr IV NOW STA Stop: 06/30/23 20:14 Last Admin: 06/30/23 20:12 Dose: 100 mls/hr Documented By: BCN Imaging Data Radiologist's Impression: Chest X-Ray 06/30/23 17:57 XR chest 1V portable CLINICAL HISTORY: chf TECHNIQUE: Single frontal radiograph of the chest was obtained. Comparison: Comparison is made to chest radiograph 10/06/2022 FINDINGS: Exam is limited by underpenetration. Cardiomegaly is noted. The lungs are clear. No evidence of pleural effusion or pneumothorax. IMPRESSION: No acute chest disease. ACT 112: Negative or not required by law. Electronically signed by: Jonah Nye M.D. 06/30/2023 6:45 PM Discharge Plan Visit Data Chief Complaint: Swelling/Edema to Extremity Stated Complaint: LASIK IV ED Provider: Sunny Flynn Discharge Problem: CHF (congestive heart failure), Edema, Cardiomyopathy Patient Disposition: Admitted As Inpatient Discharge Instructions Interventions: ED Discharge Assessment Last Done: 06/30/23 20:22 Discharge Problem: CHF (congestive heart failure) Qualifiers: Heart failure type: unspecified Heart failure chronicity: unspecified Qualified Code(s): I50.9 - Heart failure, unspecified Edema Qualifiers: Edema type: unspecified Qualified Code(s): R60.9 - Edema, unspecified Cardiomyopathy Qualifiers: Cardiomyopathy type: unspecified Qualified Code(s): I42.9 - Cardiomyopathy, unspecified
[2023-06-30 17:21] LABS: Basophils # (auto) 0.04 K/uL (0.00-0.20); Basophils % (auto) 0.3 %; Eosinophils # (auto) 0.34 K/uL (0.00-0.50); Eosinophils % (auto) 2.9 %; Hematocrit (blood only) 34.3 % (42.0-52.0); Hemoglobin 11.1 g/dl (14.0-18.0); Immature Granulocytes # (auto) 0.05 K/uL (0.01-0.20); Immature Granulocytes % (auto) 0.4 %; Lymphocytes # (auto) 0.91 K/uL (1.20-3.40); Lymphocytes % (auto) 7.7 %; Mean Corpuscular Hemoglobin 27.5 pg (25.0-34.0); Mean Corpuscular Hgb Conc 32.4 g/dL (32.0-36.0); Mean Corpuscular Volume 85.1 fL (80.0-100.0); Mean Platelet Volume 9.5 fL (9.4-12.4); Monocytes # (auto) 0.57 K/uL (0.11-0.59); Monocytes % (auto) 4.8 %; Neutrophils # (auto) 9.87 K/uL (1.40-6.50); Neutrophils % (auto) 83.9 %; Platelet Count 288 K/uL (130-400); RDW Coefficient of Variation 14.6 % (11.5-14.5); RDW Standard Deviation 45.1 fL (36.4-46.3); Red Blood Count 4.03 M/uL (4.70-6.10); White Blood Count 11.78 K/ul (4.8-10.8)
[2023-06-30 17:33] LABS: Alanine Aminotransferase 16 U/L (7-52); Alkaline Phosphatase 96 U/L (34-104); Anion Gap 11 (3-11); Aspartate Aminotransferase 15 U/L (13-39); BUN Creatinine Ratio 29.4 (10-20); Bilirubin,Total 0.5 mg/dl (0.2-1.0); Blood Urea Nitrogen 89 mg/dl (6-23); Calcium 9.7 mg/dl (8.6-10.3); Carbon Dioxide 32 mmol/L (21-32); Chloride 88 mmol/L (98-107); Est GFR (Non-African American) 22.4 ml/min; Globulin 4.1 gm/dl (2.5-4.0); Glucose 188 mg/dl (70-99(Fasting)); Lipase 3 U/L (11-82); Potassium 3.7 mmol/L (3.5-5.1); Sodium 131 mmol/L (136-145); Total Protein 8.1 gm/dl (6.0-8.3)
[2023-06-30 17:39] LABS: Troponin I High Sensitivity 12.5 pg/ml (0-20)
[2023-06-30] MEDS ORDERED: FUROSEMIDE 40 MG/4 ML VIAL IV STA (17:57)
--- NOTE | 2023-06-30 18:39 | History & Physical Report ---
Date of Service June 30, 2023 Assessment & Plan (1) Lower extremity edema: Plan: Patient was at Dr. Dodge's office the morning of 06/30, and was recommended he come in to obtain IV Lasix for worsening LE edema/weeping (see photos) Clinically, patient has no complaints; LE neuropathy and swelling is ongoing 13lb weight gain since 06/02, per patient Mild leukocytosis at 11.78; hx of LE cellulitis Rocephin 2000 mg IV q24h CRP ordered, pending Daily LE dressing and wound care for ongoing venous stasis ulcers Wound care nurse consulted Normally on torsemide 100 mg twice daily at home Lasix 80 mg IV BID17 while inpatient Continue spironolactone 50 mg daily, as well as metolazone 5 mg BID Continue potassium supplementation 60mEq BID; monitor daily potassium A.m. CBC, BMP, CRP (2) CKD (chronic kidney disease): Plan: Diabetic nephropathy; patient follows with Dr. Dodge BUN 89, creatinine 3.48 (baseline 2.70), and EGFR 22.4 on arrival Hold losartan in setting of potential ZAIRE Avoid nephrotoxic agents Nephrology consulted (3) Diabetes type 2, uncontrolled: Plan: Last A1c 11.3% on 06/30/2023 Hold Trulicity Patient reports he normally takes Humulin 150u TID Will transition to Lantus 30u BID while inpatient SSI; goal BSG range 110-140mg/dL, CF 15, carb ratio 5 BSG ACHS T2DM diet Pharmacy glycemic consult Adjust regimen as needed (4) Chronic diastolic CHF (congestive heart failure): Plan: Last echo on 04/08/2021 revealed LVEF 50-55% (5) HTN (hypertension): Plan: Continue carvedilol Plan Disposition: Admit to [facility] telemetry Full code T2DM, AHA diet (1500 mL fluid restriction) VTE PPx: Heparin 5000u SQ q8h History of Present Illness Chief Complaint: Swelling/edema to extremity Primary Care Provider: Griselda Aponte MD Juan Carlos is a 53-year-old male with PMH of T2DM, dyslipidemia, CAD, HTN, GERD, CKD, PAD, and depression. He presented for worsening LE edema with weeping legs; sent in from Dr. Dodge's office with recommendation to obtain IV Lasix 80 mg IV BID. Patient endorses swelling/weeping/numbness in legs, but notes this is chronic due to his diabetic neuropathy. He reports that he did not take his morning medications today. He normally takes torsemide 100 mg twice daily, but did not take it today. He also has not taken his insulin today; normally takes Humulin 150u TID. He reports no recent changes in medications. No at home oxygen use. No CPAP. No sick contacts. He notes he has gained around 13 pounds since 06/02 (over the past month). He denies leg pain, and has no complaints at time of admission. Patient reports that he stopped going to wound care in September 2022; he reports that his mom last changed his dressing on 06/29. Patient is hypertensive at 155/83 at time of admission; vitals otherwise stable. ED course: Lasix 80 mg IV ROS: Patient endorses swelling/numbness in legs (chronic; neuropathy). Patient denies fever, chills, nightsweats, headache, dizziness, lightheadness, CP, pleuritic CP, SOB, cough, abdominal pain, N/V/D, urinary s/s, burning with urination, or pain in the legs. Allergies Allergy/AdvReac Type Severity Reaction Status Date / Time sulfamethoxazole AdvReac Severe kidney Verified 06/02/23 14:25 [From Bactrim] injury trimethoprim [From Bactrim] AdvReac Severe kidney Verified 06/02/23 14:25 injury Home Medications Medication Instructions Recorded Confirmed Type aspirin 81 mg tablet,delayed 81 mg PO QAM 04/03/18 06/30/23 History release ascorbate calcium (vitamin C) 500 500 mg PO QAM 12/25/19 06/30/23 History mg tablet L.acidophil-L.casei-B.bifid-B.longum-FOS 1 cap PO QAM 01/31/20 06/30/23 History 2 billion cell-50 mg capsule (Probiotic Blend) losartan 25 mg tablet 25 mg PO DAILY #90 tabs 07/24/22 06/30/23 Rx varicella-zoster glycoE vacc-AS01B 0.5 ml IM ONCE #1 ea 09/21/22 10/19/22 Rx adj(PF) 50 mcg/0.5 mL IM susp, kit (Shingrix (PF)) insulin syringe-needle U-100 1 mL #100 ea 09/28/22 01/22/23 Rx 25 gauge x 5/8" (BD Insulin Syringe) psyllium husk 3.4 gram/5.4 gram 1 tbsp PO QAM PRN Constipation 09/28/22 06/30/23 History oral powder (Metamucil) blood sugar diagnostic (OneTouch #200 ea 10/07/22 01/22/23 Rx Verio test strips) potassium chloride 20 mEq 60 meq (3 x 20 mEq) PO BID #540 11/03/22 06/30/23 Rx tablet,extended release tabs spironolactone 50 mg tablet 50 mg PO DAILY #90 tabs 12/15/22 06/30/23 Rx pen needle, diabetic 31 gauge x #300 ea 12/17/22 01/22/23 Rx 3/16" bupropion HCl 150 mg 24 hr tablet, 150 mg PO QAM #90 tabs 12/18/22 06/30/23 Rx extended release carvedilol 6.25 mg tablet 6.25 mg PO BID #180 tabs 02/16/23 06/30/23 Rx magnesium oxide 400 mg PO BID #180 tabs 03/01/23 06/30/23 Rx pantoprazole 40 mg tablet,delayed 40 mg PO QAM #90 tabs 03/22/23 06/30/23 Rx release atorvastatin 80 mg tablet (Lipitor) 80 mg PO QPM 90 days #90 tabs 04/16/23 06/30/23 Rx cholecalciferol (vitamin D3) 125 125 mcg PO DAILY #30 caps 05/10/23 06/30/23 Rx mcg (5,000 unit) capsule torsemide 100 mg tablet 100 mg PO BID #60 tabs 05/10/23 06/30/23 Rx dulaglutide 3 mg/0.5 mL 3 mg (0.5 mL) subcut ONCE #2 mL 06/02/23 06/30/23 Rx subcutaneous pen injector (Trulicity) insulin regular hum U-500 conc 500 150 unit (0.3 mL) subcut TID #84 mL 06/02/23 06/30/23 Rx unit/mL(3 mL) subcut pen (Humulin R U-500 (Conc) Insulin Kwikpen) FreeStyle Radha 3 Sensor #2 ea 06/09/23 06/09/23 Rx (blood-glucose sensor) tramadol 50 mg tablet 50 mg PO BID PRN pain #60 tabs 06/17/23 06/30/23 Rx metolazone 5 mg tablet 5 mg PO BID edema #180 tabs 06/29/23 06/30/23 Rx Past Med/Surg History Medical History DVT prophylaxis Morbid obesity with BMI of 50.0-59.9, adult Renal agenesis, 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, 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 Sleep apnea NO SLEEP STUDY PER PT Iron deficiency anemia Skin abscess Jul 2019, neck, s/p I&D with +MRSA culture Skin ulcer of left foot including toes CAD (coronary artery disease) Diabetic peripheral neuropathy CKD (chronic kidney disease) F/U DR DODGE CHF (congestive heart failure) Myocardial infarction "silent" between the time frame of [id number] ??--follows with [facility] Non-ischemic cardiomyopathy Per cardio records - (35% July 2017, 55% January 2018 and July 2018) Hx MRSA infection Diabetic gastroparesis Chronic back pain GERD (gastroesophageal reflux disease) HTN (hypertension) Surgical History S/P foot surgery, right DEBRIDEMENT History of anesthesia reaction woke up during last colonoscopy 2017 History of surgery left leg d/t cellulitis History of left knee surgery History of incision and drainage neck History of esophagogastroduodenoscopy (EGD) Hx of hand surgery right hand d/t cellulitis issues ? Hx of cardiac cath 2017 @ [facility] no stents Hx of colonoscopy LAST 2019 Family History Family/Other Colon cancer PATERNAL GRANDFATHER Father Prostate cancer Diabetes Hypertension Brother Diabetes Mother Diabetes Grandfather (Paternal) Family hx of colon cancer Other No family history of adverse response to anesthesia No significant family history Social History Smoking Status: Never smoker Second Hand Exposure: No; Do You Dip or Chew Tobacco: No; Hx Alcohol Use: Yes Alcohol type: beer Hx Substance Use: No Preferred Language: Salvadorean Communication Ability: Effective Visual Impairment: Limited Hearing Ability: Normal Electrical Engineering Designer Required: No Beliefs That Will Affect Care: None marital status: Single Current Living Situation: Parent Current Living Situation Comment: lives at home with Mom (dad passed last year) current occupational status: employed current occupation: [employer], currently off on medical leave How many Children do You have: 0 Feels Safe at Home: Yes Safety Concerns: Feels Safe At This Time Diet: regular Diet Comment: watches what he does concerning diabetes caffeine: Yes during the past year weight has: remained stable Dental Care, Regularly: No Seatbelt Use: always Sunscreen Use: No Assistive Devices: Bedside Commode, Cane, Walker and Wheelchair Review of Systems 2 Review of Systems: See HPI above Physical Exam 2 Physical Exam: General: no acute distress; non-toxic appearing; well-nourished; cooperative HEENT: normocephalic, atraumatic; no scleral icterus; PERRLA w/ EOMs intact; moist mucus membrane; vision and hearing grossly intact Neck: supple; no JVD; no lymphadenopathy; trachea midline Skin: warm, dry without signs of tenting; no cyanosis; no rashes, bruising, lesions, or erythema noted CV: chest wall NTP; RRR; S1/S2 normal; no murmurs/rubs/gallops; pulses intact and symmetric at radial, DP, and PT Lungs: no acute respiratory distress; symmetrical chest wall expansion; clear breath sounds across all lung sinclair w/o adventitious sounds; no wheezing ABD: Soft, NTP; BS present; distention secondary to body habitus; no rebounding/guarding MSK: no tics or fasciculations; gross edema in the LEs B/L; malodorous; superficial wounds and erythema (as noted in the photos below) Neuro: A&Ox3; normal mood and affect; fluent speech; no focal deficits; sensation grossly intact Results & Data Results & Data Vital Signs (Past 12 Hours) Vital Signs Temp Pulse Pulse Resp BP BP Pulse Ox 06/30/23 17:50 94 H 06/30/23 17:35 94 H 16 164/69 H 93 06/30/23 15:29 36.9 C 94 H 18 120/64 93 O2 Del Method 06/30/23 17:50 06/30/23 17:35 Room Air 06/30/23 15:29 Room Air Laboratory Results Abnormal lab results 06/30/23 Range/Units 15:50 WBC 11.78 H (4.8-10.8) K/ul RBC 4.03 L (4.70-6.10) M/uL Hgb 11.1 L (14.0-18.0) g/dl Hct 34.3 L (42.0-52.0) % RDW Coeff of Soledad 14.6 H (11.5-14.5) % Neut # (Auto) 9.87 H (1.40-6.50) K/uL Lymph # (Auto) 0.91 L (1.20-3.40) K/uL Sodium 131 L (136-145) mmol/L Chloride 88 L (98-107) mmol/L BUN 89 H (6-23) mg/dl Creatinine 3.03 H D (0.6-1.4) mg/dl BUN/Creatinine Ratio 29.4 H (10-20) Glucose 188 H (70-99(Fasting)) mg/dl Globulin 4.1 H (2.5-4.0) gm/dl Lipase 3 L (11-82) U/L Code Status & VTE Plan Code Status Full code VTE Prophylaxis Plan VTE Prophylaxis will be ordered: Yes Supervising Physician Co-Signing Physician Notes Patient seen and examined, chart reviewed, case discussed with Sebastián Nieves, CRISTO and I agree with the assessment and plan as above except as otherwise noted Labs and images reviewed 53-year-old male with a history of solitary kidney and CKD who presents with at least 15 pounds of weight gain and volume overload, bright erythema of the toes bilaterally. Was referred by nephrology. Has dietary indiscretion is does not follow a low-sodium diet at home. Is recommended for admission for diuresis. He is not hypoxic. Will admit and continue on metolazone/Lasix, agree with treatment and management above. Trend BMP daily. Patient has bright demarcated erythema of the toes bilaterally and chronic venous stasis change/dermatitis of the lower extremities. Single dose of Rocephin given for coverage of potential superimposed cellulitis with increased risk due to diabetes. Agree with assessment and management as noted above. PG Care Time/CCT Total # of Minutes Spent Total Time Spent with Patient: Total time spent is greater than 50% in coordination of care (as documented) at patient's floor/unit and/or counseling patient: C[place] [address] INT INP/OBS CARE 2/55MIN Patient Type Established Medical Decision Making Moderate Complexity Diagnoses Lower extremity edema R60.0 CKD (chronic kidney disease) N18.9 Diabetes type 2, uncontrolled E11.65 Glycemic state: with hyperglycemia Chronic diastolic CHF (congestive heart failure) I50.32 Essential hypertension I10 Hypertension type: essential hypertension (3) Diabetes type 2, uncontrolled Glycemic state: with hyperglycemia Qualified Code(s): E11.65 - Type 2 diabetes mellitus with hyperglycemia (5) HTN (hypertension) Hypertension type: essential hypertension Qualified Code(s): I10 - Essential (primary) hypertension
--- NOTE | 2023-06-30 18:46 | XRay Report ---
XR chest 1V portable CLINICAL HISTORY: chf TECHNIQUE: Single frontal radiograph of the chest was obtained. Comparison: Comparison is made to chest radiograph 10/06/2022 FINDINGS: Exam is limited by underpenetration. Cardiomegaly is noted. The lungs are clear. No evidence of pleur al effusion or pneumothorax. IMPRESSION: No acute chest disease. ACT 112: Negative or not required by law. Electronically signed by: Jonah Nye M.D. 06/30/2023 6:45 PM
[2023-06-30] MEDS ORDERED: cefTRIAXone SODIUM 2,000 MG/50 ML BAG IV STA (19:45)
[2023-06-30 20:02] LABS: Magnesium 1.8 mg/dl (1.7-2.4)
[2023-06-30] MEDS ORDERED: DEXTROSE 50% 50 ML SYRINGE IV PRN (21:19)
[2023-06-30] MEDS ORDERED: PHARMACY GLYCEMIC MGMT CONSULT PRN (21:19)
[2023-06-30] MEDS ORDERED: GLUCOSE 10 TAB/TUBE PO PRN (21:19)
[2023-06-30] MEDS ORDERED: GLUCAGON FOR INJ 1 MG VIAL SQ PRN (21:19)
[2023-06-30] MEDS ORDERED: ACETAMINOPHEN 325 MG TAB PO PRN (21:19)
[2023-06-30] MEDS ORDERED: CARBOHYDRATES FOR HYPOGLYCEMIA PO PRN (21:19)
[2023-06-30] MEDS ORDERED: traMADol HCL 50 MG TABLET PO PRN (21:19)
[2023-06-30] MEDS ORDERED: GLUCOSE 40% GEL 15 GM TUBE PO PRN (21:19)
[2023-06-30] MEDS ORDERED: LANTUS PER UNIT CHARGE SQ SCH (21:45)
[2023-06-30] MEDS: FUROSEMIDE 40 MG/4 ML VIAL IV SCH (23:02)
[2023-06-30] MEDS: Patient's HEIGHT &/or WEIGHT Needed SCH (23:03)
[2023-06-30] MEDS: POTASSIUM CHLORIDE CRTAB 20 MEQ TABCR PO SCH (23:03)
[2023-06-30] MEDS: INSULIN ASPART PER UNIT CHARGE SC SCH (23:04)
[2023-06-30] MEDS: LANTUS PER UNIT CHARGE SQ SCH (23:05)
[2023-07-01] MEDS: Patient's HEIGHT &/or WEIGHT Needed SCH (00:19)
[2023-07-01] MEDS: MAGNESIUM OXIDE 400 MG TAB PO SCH ×3 (00:35→21:24)
[2023-07-01] MEDS: ATORVASTATIN 40 MG TAB PO SCH ×2 (00:35→21:23)
[2023-07-01] MEDS: HEPARIN SOD 5,000 UNIT/0.5 ML VIAL SQ SCH ×4 (00:35→21:24)
[2023-07-01] MEDS: carvediloL 6.25 MG TAB PO SCH ×3 (00:36→21:24)
[2023-07-01] MEDS: metOLazone 5 MG TABLET PO SCH ×3 (00:36→21:25)
[2023-07-01] MEDS ORDERED: INSULIN ASPART PER UNIT CHARGE SC SCH (02:00)
[2023-07-01 07:34] LABS: Basophils # (auto) 0.04 K/uL (0.00-0.20); Basophils % (auto) 0.4 %; Hematocrit (blood only) 33.7 % (42.0-52.0); Hemoglobin 10.7 g/dl (14.0-18.0); Immature Granulocytes # (auto) 0.04 K/uL (0.01-0.20); Immature Granulocytes % (auto) 0.4 %; Lymphocytes # (auto) 0.93 K/uL (1.20-3.40); Lymphocytes % (auto) 9.4 %; Mean Corpuscular Hemoglobin 27.5 pg (25.0-34.0); Mean Corpuscular Hgb Conc 31.8 g/dL (32.0-36.0); Mean Corpuscular Volume 86.6 fL (80.0-100.0); Mean Platelet Volume 9.4 fL (9.4-12.4); Monocytes # (auto) 0.51 K/uL (0.11-0.59); Monocytes % (auto) 5.1 %; Neutrophils # (auto) 8.12 K/uL (1.40-6.50); Neutrophils % (auto) 81.7 %; Platelet Count 285 K/uL (130-400); RDW Coefficient of Variation 14.6 % (11.5-14.5); RDW Standard Deviation 46.2 fL (36.4-46.3); Red Blood Count 3.89 M/uL (4.70-6.10); White Blood Count 9.94 K/ul (4.8-10.8)
[2023-07-01 07:54] LABS: C Reactive Protein 5.28 mg/dl (0-0.5); Calcium 9.6 mg/dl (8.6-10.3); Creatinine Clr Calc Pharmacy 45.9 ml/min; Est GFR (African American) 26.6 ml/min; Est GFR (Non-African American) 22.9 ml/min; Magnesium 2.1 mg/dl (1.7-2.4); Potassium 3.9 mmol/L (3.5-5.1)
[2023-07-01] MEDS: INSULIN ASPART PER UNIT CHARGE SC SCH ×4 (08:45→21:37)
[2023-07-01] MEDS: LANTUS PER UNIT CHARGE SQ SCH ×2 (08:46→21:37)
[2023-07-01] MEDS: buPROPion XL 150 MG TABCR PO SCH (08:50)
[2023-07-01] MEDS: FUROSEMIDE 40 MG/4 ML VIAL IV SCH ×2 (08:50→21:22)
[2023-07-01] MEDS: POTASSIUM CHLORIDE CRTAB 20 MEQ TABCR PO SCH ×2 (08:51→21:23)
[2023-07-01] MEDS: ASPIRIN 81 MG ECTAB PO SCH (08:51)
[2023-07-01] MEDS: SPIRONOLACTONE 25 MG TAB PO SCH (08:51)
[2023-07-01] MEDS: PANTOprazole 40 MG TAB PO SCH (08:51)
--- NOTE | 2023-07-01 11:44 | Nephrology Consultation ---
Date of Consultation July 01, 2023 Assessment & Plan (1) CKD (chronic kidney disease): * Baseline Cr 2.4, congenitally absent L kidney * ZAIRE/CKD likely due to volume overload/CHF * Agree w/ hospitalization for IV diuretic therapy and volume unloading * Primary service has ordered Furosemide 80 mg IV BID and Metolazone 5 mg po BID * Monitor UO, PRP (2) Lower extremity edema: * IV diuretic therapy as above * Discussed risk of liberal Na intake in detail w/ patient today. Will order dietitian consultation to provide education on 1500 mg/day NaCl restricted diet (3) Venous stasis ulcers of both lower extremities: * On IV Ceftriaxone History of Present Illness Reason for Consultation: ZAIRE/CKD, peripheral edema Attending Physician: Misael Wilkinson MD History of Present Illness Mr. Dutta is a 53 year old white male who is seen at the request of the [facility] Hospitalist Service for evaluation of ZAIRE/CKD, peripheral edema. Information for the HPI is obtained from direct patient interview and review of the EMR. HPI is summarized as follows: Mr. Dutta has CKD stage G3b/A3 (moderate impairment). Baseline Cr 2.4 w/ EGFR 30 cc/min. He has a congenitally absent L kidney. Outpatient evaluation revealed UPCR 0.7. His primary Oxyhydrogen Welder is Dr. Dodge. His CKD has been attributed to solitary R kidney and underlying DKD. Mr. Dutta's medical history is also significant for DKD, obesity, GULSHAN, HTN, and multiple prior episodes of ZAIRE. Mr. Dutta suffers from LE venous insufficiency complicated by venous stasis ulcers in the past. He had been cared for in the wound clinic but quit attending in 10/01. Dr. Dodge has managed his volume status with Torsemide 100 mg and Metolazone 5 mg po BID. He occasionally receives additional dose of IV Furosemide in the office. His last OV was 12/01. Mr. Dutta endorses a 13 lb weight gain over the last 4 weeks. This has been accompanied by tense LE swelling and erythema. He presented to the EMD last evening requesting IV diuretic therapy. Mr. Dutta currently denies fever or angina. He does endorse a diet high in sodium (eats frequently at fast food restaurants). Allergies Allergy/AdvReac Type Severity Reaction Status Date / Time sulfamethoxazole AdvReac Severe kidney Verified 06/02/23 14:25 [From Bactrim] injury trimethoprim [From Bactrim] AdvReac Severe kidney Verified 06/02/23 14:25 injury Home Medications Medication Instructions Recorded Confirmed Type aspirin 81 mg tablet,delayed 81 mg PO QAM 04/03/18 06/30/23 History release ascorbate calcium (vitamin C) 500 500 mg PO QAM 12/25/19 06/30/23 History mg tablet L.acidophil-L.casei-B.bifid-B.longum-FOS 1 cap PO QAM 01/31/20 06/30/23 History 2 billion cell-50 mg capsule (Probiotic Blend) losartan 25 mg tablet 25 mg PO DAILY #90 tabs 07/24/22 06/30/23 Rx varicella-zoster glycoE vacc-AS01B 0.5 ml IM ONCE #1 ea 09/21/22 10/19/22 Rx adj(PF) 50 mcg/0.5 mL IM susp, kit (Shingrix (PF)) insulin syringe-needle U-100 1 mL #100 ea 09/28/22 01/22/23 Rx 25 gauge x 5/8" (BD Insulin Syringe) psyllium husk 3.4 gram/5.4 gram 1 tbsp PO QAM PRN Constipation 09/28/22 06/30/23 History oral powder (Metamucil) blood sugar diagnostic (OneTouch #200 ea 10/07/22 01/22/23 Rx Verio test strips) potassium chloride 20 mEq 60 meq (3 x 20 mEq) PO BID #540 11/03/22 06/30/23 Rx tablet,extended release tabs spironolactone 50 mg tablet 50 mg PO DAILY #90 tabs 12/15/22 06/30/23 Rx pen needle, diabetic 31 gauge x #300 ea 12/17/22 01/22/23 Rx 3/16" bupropion HCl 150 mg 24 hr tablet, 150 mg PO QAM #90 tabs 12/18/22 06/30/23 Rx extended release carvedilol 6.25 mg tablet 6.25 mg PO BID #180 tabs 02/16/23 06/30/23 Rx magnesium oxide 400 mg PO BID #180 tabs 03/01/23 06/30/23 Rx pantoprazole 40 mg tablet,delayed 40 mg PO QAM #90 tabs 03/22/23 06/30/23 Rx release atorvastatin 80 mg tablet (Lipitor) 80 mg PO QPM 90 days #90 tabs 04/16/23 06/30/23 Rx cholecalciferol (vitamin D3) 125 125 mcg PO DAILY #30 caps 05/10/23 06/30/23 Rx mcg (5,000 unit) capsule torsemide 100 mg tablet 100 mg PO BID #60 tabs 05/10/23 06/30/23 Rx dulaglutide 3 mg/0.5 mL 3 mg (0.5 mL) subcut ONCE #2 mL 06/02/23 06/30/23 Rx subcutaneous pen injector (Trulicity) insulin regular hum U-500 conc 500 150 unit (0.3 mL) subcut TID #84 mL 06/02/23 06/30/23 Rx unit/mL(3 mL) subcut pen (Humulin R U-500 (Conc) Insulin Kwikpen) FreeStyle Radha 3 Sensor #2 ea 06/09/23 06/09/23 Rx (blood-glucose sensor) tramadol 50 mg tablet 50 mg PO BID PRN pain #60 tabs 06/17/23 06/30/23 Rx metolazone 5 mg tablet 5 mg PO BID edema #180 tabs 06/29/23 06/30/23 Rx Patient History Medical History DVT prophylaxis Morbid obesity with BMI of 50.0-59.9, adult Renal agenesis, 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, 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 Sleep apnea NO SLEEP STUDY PER PT Iron deficiency anemia Skin abscess Jul 2019, neck, s/p I&D with +MRSA culture Skin ulcer of left foot including toes CAD (coronary artery disease) Diabetic peripheral neuropathy CKD (chronic kidney disease) F/U DR DODGE CHF (congestive heart failure) Myocardial infarction "silent" between the time frame of [id number] ??--follows with [facility] Non-ischemic cardiomyopathy Per cardio records - (35% July 2017, 55% January 2018 and July 2018) Hx MRSA infection Diabetic gastroparesis Chronic back pain GERD (gastroesophageal reflux disease) HTN (hypertension) Surgical History S/P foot surgery, right DEBRIDEMENT History of anesthesia reaction woke up during last colonoscopy 2018 History of surgery left leg d/t cellulitis History of left knee surgery History of incision and drainage neck History of esophagogastroduodenoscopy (EGD) Hx of hand surgery right hand d/t cellulitis issues ? Hx of cardiac cath 2017 @ [facility] no stents Hx of colonoscopy LAST 2019 Family History Family/Other Colon cancer PATERNAL GRANDFATHER Father Prostate cancer Diabetes Hypertension Brother Diabetes Mother Diabetes Grandfather (Paternal) Family hx of colon cancer Other No family history of adverse response to anesthesia No significant family history Social History Smoking Status: Never smoker Second Hand Exposure: No; Do You Dip or Chew Tobacco: No; Hx Alcohol Use: Yes Alcohol type: beer Hx Substance Use: No Preferred Language: Divehi Communication Ability: Effective Visual Impairment: Limited Hearing Ability: Normal Biophysics Scientist Required: No Beliefs That Will Affect Care: None marital status: Single Current Living Situation: Parent Current Living Situation Comment: lives at home with Mom (dad passed last year) current occupational status: employed current occupation: [employer], currently off on medical leave How many Children do You have: 0 Feels Safe at Home: Yes Safety Concerns: Feels Safe At This Time Diet: regular Diet Comment: watches what he does concerning diabetes caffeine: Yes during the past year weight has: remained stable Dental Care, Regularly: No Seatbelt Use: always Sunscreen Use: No Assistive Devices: Cane and Walker Review of Systems Constitutional: no fever Eyes: no problem reported Ear, Nose, Mouth, Throat: no problem reported Respiratory: no dyspnea Cardiovascular: no chest pain Gastrointestinal: no abdominal pain, no nausea, no vomiting and no diarrhea/loose stools Integumentary: tense LE swelling and erythema Physical Exam Constitutional: not in distress Eyes: PERRL, conjunctivae normal, anicteric sclerae ENMT: external ear and nose normal, oropharynx normal Neck: trachea midline, no thyromegaly Respiratory: normal respiratory effort, lungs clear to auscultation Cardiovascular: Rate/Rhythm: regular rate and regular rhythm Extremities: + edema (tense LE swelling w/ weeping bullae and erythema involving both feet) Gastrointestinal (Abdomen): normal bowel sounds, soft, nontender, no hepatosplenomegaly Neurologic: Speech / Cognition: normal speech and normal cognition Psychiatric: Affect: euthymic affect Results & Data Vital Signs (Past 12 Hours) Vital Signs Temp Pulse Pulse Resp BP BP Pulse Ox 07/01/23 08:50 36.4 C L 88 20 124/77 94 07/01/23 08:03 07/01/23 06:06 93 H 07/01/23 03:30 36.7 C 93 H 20 108/63 92 O2 Del Method 07/01/23 08:50 Room Air 07/01/23 08:03 Room Air 07/01/23 06:06 07/01/23 03:30 Room Air Laboratory Results Laboratory Results WBC 9.94 K/ul (4.8-10.8) 07/01/23 06:36 RBC 3.89 M/uL (4.70-6.10) L 07/01/23 06:36 Hgb 10.7 g/dl (14.0-18.0) L 07/01/23 06:36 Hct 33.7 % (42.0-52.0) L 07/01/23 06:36 MCV 86.6 fL (80.0-100.0) 07/01/23 06:36 MCH 27.5 pg (25.0-34.0) 07/01/23 06:36 MCHC 31.8 g/dL (32.0-36.0) L 07/01/23 06:36 RDW Std Deviation 46.2 fL (36.4-46.3) 07/01/23 06:36 RDW Coeff of Soledad 14.6 % (11.5-14.5) H 07/01/23 06:36 Plt Count 285 K/uL (130-400) 07/01/23 06:36 MPV 9.4 fL (9.4-12.4) 07/01/23 06:36 Immature Gran % (Auto) 0.4 % 07/01/23 06:36 Neut % (Auto) 81.7 % 07/01/23 06:36 Lymph % (Auto) 9.4 % 07/01/23 06:36 [place] % (Auto) 5.1 % 07/01/23 06:36 Eos % (Auto) 3.0 % 07/01/23 06:36 Baso % (Auto) 0.4 % 07/01/23 06:36 Neut # (Auto) 8.12 K/uL (1.40-6.50) H 07/01/23 06:36 Lymph # (Auto) 0.93 K/uL (1.20-3.40) L 07/01/23 06:36 [place] # (Auto) 0.51 K/uL (0.11-0.59) 07/01/23 06:36 Eos # (Auto) 0.30 K/uL (0.00-0.50) 07/01/23 06:36 Baso # (Auto) 0.04 K/uL (0.00-0.20) 07/01/23 06:36 Immature Gran # (Auto) 0.04 K/uL (0.01-0.20) 07/01/23 06:36 Sodium 132 mmol/L (136-145) L 07/01/23 06:36 Potassium 3.9 mmol/L (3.5-5.1) 07/01/23 06:36 Chloride 87 mmol/L (98-107) L 07/01/23 06:36 Carbon Dioxide 35 mmol/L (21-32) H 07/01/23 06:36 Anion Gap 10 (3-11) 07/01/23 06:36 BUN 89 mg/dl (6-23) H 07/01/23 06:36 Creatinine 2.97 mg/dl (0.6-1.4) H 07/01/23 06:36 Est Cr Clr Drug Dosing 45.9 ml/min 07/01/23 06:36 Est GFR ( Amer) 26.6 ml/min 07/01/23 06:36 Est GFR (Non-Af Amer) 22.9 ml/min 07/01/23 06:36 BUN/Creatinine Ratio 30.0 (10-20) H 07/01/23 06:36 Glucose 280 mg/dl (70-99(Fasting)) H 07/01/23 06:36 POC Glucose 296 mg/dl (70-99) H 07/01/23 08:37 Calcium 9.6 mg/dl (8.6-10.3) 07/01/23 06:36 Magnesium 2.1 mg/dl (1.7-2.4) 07/01/23 06:36 Total Bilirubin 0.5 mg/dl (0.2-1.0) 06/30/23 15:50 AST 15 U/L (13-39) 06/30/23 15:50 ALT 16 U/L (7-52) 06/30/23 15:50 Alkaline Phosphatase 96 U/L (34-104) 06/30/23 15:50 Troponin I High Sens 12.5 pg/ml (0-20) 06/30/23 15:50 C-Reactive Protein 5.28 mg/dl (0-0.5) H 07/01/23 06:36 B-Natriuretic Peptide 46 pg/ml (0-100) 06/30/23 15:50 Total Protein 8.1 gm/dl (6.0-8.3) 06/30/23 15:50 Albumin 4.0 gm/dl (3.4-5.0) 06/30/23 15:50 Globulin 4.1 gm/dl (2.5-4.0) H 06/30/23 15:50 Albumin/Globulin Ratio 1.0 (0.9-2) 06/30/23 15:50 Lipase 3 U/L (11-82) L 06/30/23 15:50 Impressions Chest X-Ray 06/30/23 17:57 XR chest 1V portable CLINICAL HISTORY: chf TECHNIQUE: Single frontal radiograph of the chest was obtained. Comparison: Comparison is made to chest radiograph 10/06/2022 FINDINGS: Exam is limited by underpenetration. Cardiomegaly is noted. The lungs are clear. No evidence of pleural effusion or pneumothorax. IMPRESSION: No acute chest disease. ACT 112: Negative or not required by law. Electronically signed by: Jonah Nye M.D. 06/30/2023 6:45 PM Diagnostic Findings 04/08/21 echocardiogram: LVEF 50-55%, borderline LVH, mild aortic root dilation. No significant change compared to 07/30 study PG Care Time/CCT Total # of Minutes Spent Total Time Spent with Patient: Total time spent is greater than 50% in coordination of care (as documented) at patient's floor/unit and/or counseling patient: Coding Level of Care Code 84983 IN/OBS CONSULT LVL 5,80M Diagnoses CKD (chronic kidney disease) N18.9 Lower extremity edema R60.0 Venous stasis ulcers of both lower extremities I83.019; I83.029; L97.919; L97.922
--- NOTE | 2023-07-01 12:33 | Pharmacy Report ---
Pharmacy Glycemic Short Note 2 - Date of Service July 01, 2023 - Glycemic Short BSG Results (Last 24 hours): 06/30/23 06/30/23 06/30/23 15:50 20:58 21:00 Glucose 188 H POC Glucose 310 H* 309 H* 07/01/23 07/01/23 07/01/23 01:59 06:36 08:37 Glucose 280 H POC Glucose 300 H 296 H 07/01/23 12:20 Glucose POC Glucose 210 H OUTPATIENT ANTIDIABETIC REGIMEN: * U-500 150 units SQ TID * Trulicity 3 mg SQ weekly HbA1c = 11.3% ASSESSMENT: * 53 y/o M admitted for ZAIRE/CKD, peripheral edema. Patient has history of Type 2 diabetes managed at home on U-500 insulin and Trulicity SQ. * On previous admissions, patient was managed on basal Lantus insulin. Will utilize Lantus BID again this admission. * BSGs last night was 310 mg/dl. This is slowly trending down to 210 mg/dl at pre-lunch BSG today. * Novolog parameters based on wt/stress between 2 and 3. Will continue this today and tighten further tomorrow if needed. PLAN FOR INPATIENT GLYCEMIC CONTROL: * Hold outpatient diabetes medications * Basal insulin * Lantus 45 units SQ BID * Bolus insulin * NovoLog per scale ACHS or Q6hrs while NPO * Goal Range: Low 110 mg/dL - High 140 mg/dL * Correction Factor: 10 mg/dL/unit * Nutritional / Prandial insulin per carb ratio of 1 unit per 4 grams CHO consumed
--- NOTE | 2023-07-01 15:13 | Hospitalist Progress Note ---
Date of Service July 01, 2023 Assessment & Plan (1) Lower extremity edema: Plan: Bilateral lower extremity edema, history of CKD and fluid retention Patient reports he has had high salt intake and does not generally restrict his sodium intake. Low-salt diet while inpatient Continue Lasix 80 mg IV twice daily, metolazone 5 mg twice daily. Patient has had net 1 L output today with total output of 1500 cc and fairly brisk response to morning Lasix dose. Will continue current dosing, goal net output 1-2 L negative per day Trend weight daily, monitor ins and outs BMP daily Patient has chronic venous stasis dermatitis and erythema. Initially covered with Rocephin 2 g due to warm demarcated erythema of the toes. Remains unchanged and bilateral; Will hold additional antibiotics and follow clinically, if expanding erythema/leukocytosis/fever develops and resume Rocephin 2 g daily at that time (2) CKD (chronic kidney disease): Plan: Nephrology consulted Baseline creatinine around 2.7, creatinine on admission 3.03 and downtrending at 2.97. Patient was overtly volume overloaded Continue diuresis as noted ARB temporarily held (3) Diabetes type 2, uncontrolled: Plan: Last A1c 11.3% on 06/30/2023 Hold Trulicity Patient reports he normally takes Humulin 150u TID Will transition to Lantus 30u BID while inpatient SSI; goal BSG range 110-140mg/dL, CF 15, carb ratio 5 BSG ACHS T2DM diet Pharmacy consulted for assistance with glycemic adjustment/management (4) Chronic diastolic CHF (congestive heart failure): Plan: Last echo on 04/08/2021 revealed LVEF 50-55% Diuresis as noted (5) HTN (hypertension): Plan: Continue carvedilol Plan Disposition: Admit to [facility] telemetry Full code T2DM, AHA diet (1500 mL fluid restriction) VTE PPx: Heparin 5000u SQ q8h Admission and Anticipated Discharge Date Admission Date: June 30, 2023 Mio Rangel is seen at the bedside. He reports that he has been peeing slightly more than normal with the IV Lasix, has not noticed a benefit to his leg swelling yet. He denies fever, chills, sweats and abdominal pain. No shortness of breath. He reports his legs and toes do continue to appear very red, but he has no pain and this has not changed.he reports he used to follow-up with doctors for his legs and wounds but has not done this recently overall patient notes he is up about 13 pounds from his normal dry weight. On chart review admitting weight 179 kg, dry weight recently as low as 167 kg. Physical Exam Physical Exam: General: A&Ox3. NAD. Cooperative. HEENT: Atraumatic, normocephalic. Pulm: CTAB A&P. -wheezes, -rales, -rhonchi. Symmetrical chest rise. No increased work of breathing. No respiratory distress. Cardiac: RRR, -mrg. Radial pulses intact and symmetrical. Abdominal: Nontender, nondistended, soft. BS present. Extremities: Bilateral 4+ pitting edema. Legs with venous stasis changes, and weeping clear fluid. He has tense erythema at the distal toes bilaterally, similar to prior. See admitting HPI for photo Results & Data Results & Data Vital Signs (Past 12 Hours) Vital Signs Temp Pulse Pulse Resp BP BP Pulse Ox 07/01/23 12:12 36.7 C 81 19 121/73 93 07/01/23 08:50 36.4 C L 88 20 124/77 94 07/01/23 08:03 07/01/23 06:06 93 H 07/01/23 03:30 36.7 C 93 H 20 108/63 92 O2 Del Method 07/01/23 12:12 Room Air 07/01/23 08:50 Room Air 07/01/23 08:03 Room Air 07/01/23 06:06 07/01/23 03:30 Room Air PG Care Time/CCT Total # of Minutes Spent Total Time Spent with Patient: Total time spent is greater than 50% in coordination of care (as documented) at patient's floor/unit and/or counseling patient: Coding Level of Care Code 07394 SUB INP/OBS CARE 3/50MIN Diagnoses Lower extremity edema R60.0 CKD (chronic kidney disease) N18.9 Diabetes type 2, uncontrolled E11.65 Glycemic state: with hyperglycemia Chronic diastolic CHF (congestive heart failure) I50.32 Essential hypertension I10 Hypertension type: essential hypertension (3) Diabetes type 2, uncontrolled Glycemic state: with hyperglycemia Qualified Code(s): E11.65 - Type 2 diabetes mellitus with hyperglycemia (5) HTN (hypertension) Hypertension type: essential hypertension Qualified Code(s): I10 - Essential (primary) hypertension
[2023-07-01] MEDS: cefTRIAXone SODIUM 2,000 MG in DEXTROSE 5 % MINI-B 50 ML IV SCH (21:21)
[2023-07-02 07:05] LABS: Basophils # (auto) 0.04 K/uL (0.00-0.20); Basophils % (auto) 0.5 %; Eosinophils % (auto) 3.4 %; Hematocrit (blood only) 31.2 % (42.0-52.0); Hemoglobin 10.2 g/dl (14.0-18.0); Immature Granulocytes # (auto) 0.06 K/uL (0.01-0.20); Immature Granulocytes % (auto) 0.7 %; Lymphocytes # (auto) 0.87 K/uL (1.20-3.40); Lymphocytes % (auto) 9.8 %; Mean Corpuscular Hemoglobin 27.8 pg (25.0-34.0); Mean Corpuscular Hgb Conc 32.7 g/dL (32.0-36.0); Mean Platelet Volume 9.3 fL (9.4-12.4); Monocytes # (auto) 0.44 K/uL (0.11-0.59); Neutrophils # (auto) 7.16 K/uL (1.40-6.50); Neutrophils % (auto) 80.6 %; Platelet Count 265 K/uL (130-400); RDW Coefficient of Variation 14.6 % (11.5-14.5); RDW Standard Deviation 44.7 fL (36.4-46.3); Red Blood Count 3.67 M/uL (4.70-6.10); White Blood Count 8.87 K/ul (4.8-10.8)
[2023-07-02] MEDS: HEPARIN SOD 5,000 UNIT/0.5 ML VIAL SQ SCH ×3 (07:21→22:19)
[2023-07-02 07:23] LABS: BUN Creatinine Ratio 29.5 (10-20); C Reactive Protein 4.28 mg/dl (0-0.5); Calcium 9.3 mg/dl (8.6-10.3); Creatinine Clr Calc Pharmacy 44.8 ml/min; Est GFR (African American) 26.5 ml/min; Est GFR (Non-African American) 22.8 ml/min
--- NOTE | 2023-07-02 08:35 | Nephrology Progress Note ---
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 Dietitian recommendations reviewed (3) Venous stasis ulcers of both lower extremities: Plan: * On IV Ceftriaxone Admission and Anticipated Discharge Date Admission Date: June 30, 2023 Subjective Mr. Dutta was evaluated in his hospital room this morning. He reports improved UO w/ IV diuretic therapy. LE remain swollen and erythematous. He did meet w/ dietitian yesterday. Low Na diet recommendations were reviewed Review of Systems Constitutional: no fever Eyes: no problem reported Ear, Nose, Mouth, Throat: no problem reported Respiratory: no dyspnea Cardiovascular: no chest pain Gastrointestinal: no abdominal pain, no nausea, no vomiting and no diarrhea/loose stools Integumentary: tense LE swelling and erythema Physical Exam Constitutional: not in distress Eyes: PERRL, conjunctivae normal, anicteric sclerae ENMT: external ear and nose normal, oropharynx normal Neck: trachea midline, no thyromegaly Respiratory: normal respiratory effort, lungs clear to auscultation Cardiovascular: Rate/Rhythm: regular rate and regular rhythm Extremities: + edema (tense LE swelling w/ weeping bullae and erythema involving both feet) Gastrointestinal (Abdomen): normal bowel sounds, soft, nontender, no hepatosplenomegaly Neurologic: Speech / Cognition: normal speech and normal cognition Psychiatric: Affect: euthymic affect Results & Data Vital Signs (Past 12 Hours) Vital Signs Temp Pulse Pulse Resp BP BP Pulse Ox 07/02/23 07:46 36.5 C 88 16 148/79 H 91 07/02/23 07:44 07/02/23 05:58 90 07/02/23 03:00 36.9 C 93 H 20 138/70 94 07/01/23 22:15 87 07/01/23 22:15 07/01/23 22:00 36.7 C 87 20 131/77 92 O2 Del Method 07/02/23 07:46 Room Air 07/02/23 07:44 Room Air 07/02/23 05:58 07/02/23 03:00 Room Air 07/01/23 22:15 07/01/23 22:15 Room Air 07/01/23 22:00 Room Air Laboratory Results Laboratory Results - last 24 hr 07/01/23 07/01/23 07/01/23 08:37 12:20 17:13 WBC RBC Hgb Hct MCV MCH MCHC RDW Std Deviation RDW Coeff of [place] Plt Count MPV Immature Gran % (Auto) Neut % (Auto) Lymph % (Auto) [place] % (Auto) Eos % (Auto) Baso % (Auto) Neut # (Auto) Lymph # (Auto) [place] # (Auto) Eos # (Auto) Baso # (Auto) Immature Gran # (Auto) Sodium Potassium Chloride Carbon Dioxide Anion Gap BUN Creatinine Est Cr Clr Drug Dosing Est GFR ( Amer) Est GFR (Non-Af Amer) BUN/Creatinine Ratio Glucose POC Glucose 296 H 210 H 164 H Calcium C-Reactive Protein 07/01/23 07/02/23 07/02/23 20:18 06:17 08:09 WBC 8.87 RBC 3.67 L Hgb 10.2 L Hct 31.2 L MCV 85.0 MCH 27.8 MCHC 32.7 RDW Std Deviation 44.7 RDW Coeff of [place] 14.6 H Plt Count 265 MPV 9.3 L Immature Gran % (Auto) 0.7 Neut % (Auto) 80.6 Lymph % (Auto) 9.8 [place] % (Auto) 5.0 Eos % (Auto) 3.4 Baso % (Auto) 0.5 Neut # (Auto) 7.16 H Lymph # (Auto) 0.87 L [place] # (Auto) 0.44 Eos # (Auto) 0.30 Baso # (Auto) 0.04 Immature Gran # (Auto) 0.06 Sodium 135 L Potassium 4.0 Chloride 93 L Carbon Dioxide 31 Anion Gap 11 BUN 88 H Creatinine 2.98 H Est Cr Clr Drug Dosing 44.8 Est GFR ( Amer) 26.5 Est GFR (Non-Af Amer) 22.8 BUN/Creatinine Ratio 29.5 H Glucose 231 H POC Glucose 155 H 250 H Calcium 9.3 C-Reactive Protein 4.28 H PG Care Time/CCT Total # of Minutes Spent Total Time Spent with Patient: Total time spent is greater than 50% in coordination of care (as documented) at patient's floor/unit and/or counseling patient: Coding Level of Care Code 16426 SUB INP/OBS CARE 3/50MIN Diagnoses CKD (chronic kidney disease) N18.9 Lower extremity edema R60.0 Venous stasis ulcers of both lower extremities I83.019; I83.029; L97.919; L97.929
[2023-07-02] MEDS: LANTUS PER UNIT CHARGE SQ SCH ×2 (09:00→22:17)
[2023-07-02] MEDS: INSULIN ASPART PER UNIT CHARGE SC SCH ×4 (09:01→22:17)
[2023-07-02] MEDS: FUROSEMIDE 40 MG/4 ML VIAL IV SCH ×2 (09:01→17:07)
[2023-07-02] MEDS: metOLazone 5 MG TABLET PO SCH ×2 (09:03→20:27)
[2023-07-02] MEDS: SPIRONOLACTONE 25 MG TAB PO SCH (09:03)
[2023-07-02] MEDS: ASPIRIN 81 MG ECTAB PO SCH (09:04)
[2023-07-02] MEDS: MAGNESIUM OXIDE 400 MG TAB PO SCH ×2 (09:04→20:26)
[2023-07-02] MEDS: POTASSIUM CHLORIDE CRTAB 20 MEQ TABCR PO SCH ×2 (09:04→20:26)
[2023-07-02] MEDS: carvediloL 6.25 MG TAB PO SCH ×2 (09:04→20:26)
[2023-07-02] MEDS: buPROPion XL 150 MG TABCR PO SCH (09:04)
[2023-07-02] MEDS: PANTOprazole 40 MG TAB PO SCH (09:04)
--- NOTE | 2023-07-02 12:24 | Hospitalist Progress Note ---
Date of Service July 02, 2023 Assessment & Plan (1) Lower extremity edema: Plan: - weight 179 --> 173. Diuresing at least 1500 cc daily, net only -700 yesterday. Lasix increased to 100 by nephro, appreciate recommendations. target net 1-2 L negative per day Remains clinically volume overloaded but is progressing well Creatinine remains stable Salt restricted diet Strict ins and outs (2) CKD (chronic kidney disease): Plan: Diabetic nephropathy; patient follows with Dr. Dodge BUN 89, creatinine 3.48 (baseline 2.70), and EGFR 22.4 on arrival Losartan held Creatinine stable, trend daily Nephrology following, appreciate recommendations (3) Diabetes type 2, uncontrolled: Plan: Last A1c 11.3% on 06/30/2023 [facility] Patient reports he normally takes Humulin 150u TID Will transition to Lantus 30u BID while inpatient SSI; goal BSG range 110-140mg/dL, CF 15, carb ratio 5 BSG ACHS T2DM diet Pharmacy consulted for assistance glycemic management, parameters tightened (4) Chronic diastolic CHF (congestive heart failure): Plan: Last echo on 04/08/2021 revealed LVEF 50-55% (5) HTN (hypertension): Plan: Continue carvedilol Plan Disposition: Admit to [facility] telemetry Full code T2DM, AHA diet (1500 mL fluid restriction) VTE PPx: Heparin 5000u SQ q8h Admission and Anticipated Discharge Date Admission Date: June 30, 2023 Subjective Patient diuresing well, rapid decrease in weight. From 179 kg on admission down to 173. Tolerating well without orthostasis or lightheadedness. Has just darted to have some improvement in leg swelling. Toes feel much less tight and erythema is beginning to improve. No additional questions or concerns at bedside. Continues to remain volume overloaded requiring IV diuresis Physical Exam Physical Exam: General: A&Ox3. NAD. Cooperative. HEENT: Atraumatic, normocephalic. Pulm: CTAB A&P. -wheezes, -rales, -rhonchi. Symmetrical chest rise. No increased work of breathing. No respiratory distress. Cardiac: RRR, -mrg. Radial pulses intact and symmetrical. Abdominal: Nontender, nondistended, soft. BS present. Extremities: Bilateral 4+ pitting edema, still significant but beginning to improve and much less tense pedal edema. bilateral toe erythema less pronounced, no tenderness. Results & Data Results & Data Vital Signs (Past 12 Hours) Vital Signs Temp Pulse Pulse Resp BP BP Pulse Ox 07/02/23 12:02 36.6 C 86 16 121/69 93 07/02/23 07:46 36.5 C 88 16 148/79 H 91 07/02/23 07:44 07/02/23 05:58 90 07/02/23 03:00 36.9 C 93 H 20 138/70 94 O2 Del Method 07/02/23 12:02 Room Air 07/02/23 07:46 Room Air 07/02/23 07:44 Room Air 07/02/23 05:58 07/02/23 03:00 Room Air PG Care Time/CCT Total # of Minutes Spent Total Time Spent with Patient: Total time spent is greater than 50% in coordination of care (as documented) at patient's floor/unit and/or counseling patient: Coding Level of Care Code 52673 SUB INP/OBS CARE 3/50MIN Diagnoses Lower extremity edema R60.0 CKD (chronic kidney disease) N18.9 Diabetes type 2, uncontrolled E11.65 Glycemic state: with hyperglycemia Chronic diastolic CHF (congestive heart failure) I50.32 Essential hypertension I10 Hypertension type: essential hypertension (3) Diabetes type 2, uncontrolled Glycemic state: with hyperglycemia Qualified Code(s): E11.65 - Type 2 diabetes mellitus with hyperglycemia (5) HTN (hypertension) Hypertension type: essential hypertension Qualified Code(s): I10 - Essential (primary) hypertension
[2023-07-02] MEDS: cefTRIAXone SODIUM 2,000 MG in DEXTROSE 5 % MINI-B 50 ML IV SCH (20:19)
[2023-07-02] MEDS: ATORVASTATIN 40 MG TAB PO SCH (20:25)
--- NOTE | 2023-07-02 21:42 | Electrocardiogram Report ---
Test Reason : Blood Pressure : / mmHG Vent. 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
[2023-07-03] MEDS: HEPARIN SOD 5,000 UNIT/0.5 ML VIAL SQ SCH ×3 (06:14→22:41)
[2023-07-03 06:40] LABS: Basophils # (auto) 0.05 K/uL (0.00-0.20); Basophils % (auto) 0.5 %; Eosinophils % (auto) 4.2 %; Hematocrit (blood only) 32.3 % (42.0-52.0); Hemoglobin 10.3 g/dl (14.0-18.0); Immature Granulocytes # (auto) 0.05 K/uL (0.01-0.20); Immature Granulocytes % (auto) 0.5 %; Lymphocytes # (auto) 1.51 K/uL (1.20-3.40); Lymphocytes % (auto) 15.7 %; Mean Corpuscular Hemoglobin 27.8 pg (25.0-34.0); Mean Corpuscular Hgb Conc 31.9 g/dL (32.0-36.0); Mean Corpuscular Volume 87.3 fL (80.0-100.0); Mean Platelet Volume 9.2 fL (9.4-12.4); Monocytes # (auto) 0.61 K/uL (0.11-0.59); Monocytes % (auto) 6.4 %; Neutrophils # (auto) 6.98 K/uL (1.40-6.50); Neutrophils % (auto) 72.7 %; Platelet Count 276 K/uL (130-400); RDW Coefficient of Variation 14.4 % (11.5-14.5); RDW Standard Deviation 45.7 fL (36.4-46.3)
[2023-07-03 07:10] LABS: C Reactive Protein 2.76 mg/dl (0-0.5); Calcium 9.5 mg/dl (8.6-10.3); Est GFR (Non-African American) 23.3 ml/min
--- NOTE | 2023-07-03 08:29 | Hospitalist Progress Note ---
Date of Service July 03, 2023 Assessment & Plan (1) CHF (congestive heart failure): Plan: Patient converted from p.o. to IV diuretics during this inpatient stay Patient has had considerable weight loss with diuretics but still remains fluid overloaded. Strict ins and outs as well as daily weight requested Continue to monitor patient's cumulative fluid loss as well as his weight. Patient should follow-up with outpatient CHF clinic on discharge (2) CKD (chronic kidney disease): Plan: Nephrology consulted. Appreciate their input Continue with IV diuretics with furosemide 100 mg IV twice daily in conjunction with metolazone 5 mg. Target -1.5 to 1 L daily. Close monitoring due to high risk for worsening renal function Continue on medical telemetry due to risk of electrolyte shift (3) Lower extremity edema: Plan: Continue with IV diuretics as listed above Patient appears to have good vascular flow at this time with bilateral pedal pulses intact Patient encouraged to ambulate as tolerated and pump legs while sitting in bed (4) Venous stasis ulcers of both lower extremities: Plan: Secondary to poorly controlled diabetes mellitus Hemoglobin A1c was 11.3% Continue Lantus 30 units twice daily while inpatient with NovoLog sliding scale insulin (5) Cardiomyopathy: Plan: Most recent echocardiogram with left ventricular ejection fraction of 50 to 55% Continue with diuresis Continue carvedilol (6) Diabetic ulcer of right heel: Plan: Secondary to poorly controlled diabetes as listed above Care consulted and images and computer Continue wound management per wound care Continue with ceftriaxone 2 g IV every 24 hours (7) Diabetes type 2, uncontrolled: Plan: Continue with Lantus 30 units twice daily and sliding scale insulin with NovoLog Pharmacy consulted for glycemic management. Appreciate their input Most recent hemoglobin A1c is 11.3% (8) Nocturnal hypoxemia: Plan: Supplemental oxygen as needed to maintain SpO2 greater than 90% (9) CAD (coronary artery disease): Plan: Continue carvedilol and aspirin Continue atorvastatin Monitor on telemetry (10) HTN (hypertension): Plan: Blood pressure is slightly elevated with a systolic pressure of 150 Continue on home medications including carvedilol. If blood pressure remains el evated with systolic pressure we will adjust home medications (11) GERD (gastroesophageal reflux disease): Plan: Continue pantoprazole Plan Patient still requiring inpatient treatment for IV diuretics as well as IV antibiotics Continue with daily weights and target negative fluid balance of 1 to 1.5 L Anticipate discharge home when medically stable Admission and Anticipated Discharge Date Admission Date: June 30, 2023 Subjective Attending: Dr. Escobar This is a 53-year-old male that was admitted 06/30/2023 with lower extremity edema. Patient follows with Dr. Land nephrology and was seen the morning of admission and referred for further evaluation and treatment. Patient did have mild leukocytosis with history of lower extremity cellulitis. He was started on Rocephin 2 g IV every 24 hours. Wound care nurse was consulted. Patient is chronically on torsemide 100 mg twice daily at home. He was converted to Lasix 80 mg IV twice daily while inpatient. He was also continued on spironolactone. Patient does have chronic kidney disease with a baseline creatinine of 2.7. This is being watched closely due to need for increased diuresis. Creatinine was 3.48 on admission. It is now down to 2.93. Patient is currently fluid neutral with a cumulative fluid balance of 370 mL CKD stage G3b/A3, b/l Cr 2.4 mg/dl, eEGFR 30 cc/min with congenitally absent L kidney. Patient reports a 14 pound weight gain prior to admission. Patient states that he has not been recording all of his urine output. Discussed this with nursing as well. They have placed another hat in the toilet and encouraged him to use that or the urinal for strict I's and O's. I have also requested that patient obtains standing weight daily. Patient states that his edema seems to be improving slightly. He does not have the fullness or tightness of his legs that he had on admission. He does still have considerable edema and requires IV diuretics at this point. Review of Systems Review of Systems: A total of 10 systems was reviewed and is negative other than as listed in the HPI Physical Exam Physical Exam: GENERAL : No acute distress EYES: No icterus, gaze conjugate NOSE: No evidence of epistaxis MOUTH: No lesions or candidiasis NECK: Supple LUNGS: CTA B/L, no wheezes, rales or rhonchi HEART: Regular, rate controlled ABDOMEN: Soft, NT, ND, BS Present EXTREMITIES: BL LE edema, pedal pulses intact and equal bilaterally. Patient does have wraps on bilateral lower extremities. Toes are visible and seem to have appropriate capillary refill NEURO: A&OX3 Results & Data Results & Data Vital Signs (Past 12 Hours) Vital Signs Temp Pulse Pulse Resp BP BP Pulse Ox 07/03/23 07:53 36.7 C 86 17 169/81 H 88 L 07/03/23 07:21 95 H 07/03/23 06:49 85 07/03/23 04:29 87 L 07/03/23 04:06 36.7 C 93 H 18 143/70 H 87 L 07/02/23 23:13 36.7 C 87 18 115/69 93 07/02/23 22:21 87 O2 Del Method O2 Flow Rate FiO2 07/03/23 07:53 Room Air 07/03/23 07:21 07/03/23 06:49 07/03/23 04:29 Nasal Cannula 0 21 07/03/23 04:06 Room Air 07/02/23 23:13 Room Air 07/02/23 22:21 Laboratory Results Abnormal lab results 07/02/23 07/02/23 07/02/23 Range/Units 12:20 17:15 20:34 RBC (4.70-6.10) M/uL Hgb (14.0-18.0) g/dl Hct (42.0-52.0) % MCHC (32.0-36.0) g/dL MPV (9.4-12.4) fL Neut # (Auto) (1.40-6.50) K/uL Jones # (Auto) (0.11-0.59) K/uL Chloride (98-107) mmol/L Carbon Dioxide (21-32) mmol/L BUN (6-23) mg/dl Creatinine (0.6-1.4) mg/dl BUN/Creatinine Ratio (10-20) Glucose (70-99(Fasting)) mg/dl POC Glucose 214 H 112 H 139 H (70-99) mg/dl C-Reactive Protein (0-0.5) mg/dl 07/03/23 07/03/23 Range/Units 06:22 08:14 RBC 3.70 L (4.70-6.10) M/uL Hgb 10.3 L (14.0-18.0) g/dl Hct 32.3 L (42.0-52.0) % MCHC 31.9 L (32.0-36.0) g/dL MPV 9.2 L (9.4-12.4) fL Neut # (Auto) 6.98 H (1.40-6.50) K/uL Jones # (Auto) 0.61 H (0.11-0.59) K/uL Chloride 96 L (98-107) mmol/L Carbon Dioxide 33 H (21-32) mmol/L BUN 85 H (6-23) mg/dl Creatinine 2.93 H (0.6-1.4) mg/dl BUN/Creatinine Ratio 29.0 H (10-20) Glucose 206 H (70-99(Fasting)) mg/dl POC Glucose 233 H (70-99) mg/dl C-Reactive Protein 2.76 H (0-0.5) mg/dl PG Care Time/CCT Total # of Minutes Spent Total Time Spent with Patient: Total time spent is greater than 50% in coordination of care (as documented) at patient's floor/unit and/or counseling patient: 45 minutes spent [id number] wi th patient and his mother in his room Coding Level of Care Code 18203 SUB INP/OBS CARE 2/35MIN Diagnoses CHF (congestive heart failure) I50.9 Heart failure chronicity: unspecified Heart failure type: unspecified CKD (chronic kidney disease) N18.9 Lower extremity edema R60.0 Venous stasis ulcers of both lower extremities I83.019; I83.029; L97.919; L97.929 Cardiomyopathy I42.9 Cardiomyopathy type: unspecified Diabetic ulcer of right heel E11.621; L97.419 Diabetes type 2, uncontrolled E11.65 Glycemic state: with hyperglycemia Nocturnal hypoxemia G47.34 Coronary artery disease involving [place] coronary artery of [place] heart without angina pectoris I25.10 Associated angina: without angina Coronary Disease-Associated Artery/Lesion type: [place] artery [place] vs. transplanted heart: [place] heart Essential hypertension I10 Hypertension type: essential hypertension Gastroesophageal reflux disease, unspecified whether esophagitis present K21.9 Esophagitis presence: esophagitis presence not specified Time Spent (min) 45 (1) CHF (congestive heart failure) Heart failure chronicity: unspecified Heart failure type: unspecified Qualified Code(s): I50.9 - Heart failure, unspecified (5) Cardiomyopathy Cardiomyopathy type: unspecified Qualified Code(s): I42.9 - Cardiomyopathy, unspecified (7) Diabetes type 2, uncontrolled Glycemic state: with hyperglycemia Qualified Code(s): E11.65 - Type 2 diabetes mellitus with hyperglycemia (9) CAD (coronary artery disease) Associated angina: without angina Coronary Disease-Associated Artery/Lesion type: [place] artery [place] vs. transplanted heart: [place] heart Qualified Code(s): I25.10 - Atherosclerotic heart disease of [place] coronary artery without angina pectoris (10) HTN (hypertension) Hypertension type: essential hypertension Qualified Code(s): I10 - Essential (primary) hypertension (11) GERD (gastroesophageal reflux disease) Esophagitis presence: esophagitis presence not specified Qualified Code(s): K21.9 - Gastro-esophageal reflux disease without esophagitis
[2023-07-03] MEDS: INSULIN ASPART PER UNIT CHARGE SC SCH ×4 (08:43→20:17)
[2023-07-03] MEDS: FUROSEMIDE 40 MG/4 ML VIAL IV SCH ×2 (08:44→17:04)
[2023-07-03] MEDS: LANTUS PER UNIT CHARGE SQ SCH ×2 (08:44→20:20)
[2023-07-03] MEDS: MAGNESIUM OXIDE 400 MG TAB PO SCH ×2 (08:45→20:04)
[2023-07-03] MEDS: SPIRONOLACTONE 25 MG TAB PO SCH (08:45)
[2023-07-03] MEDS: metOLazone 5 MG TABLET PO SCH ×2 (08:45→20:04)
[2023-07-03] MEDS: ASPIRIN 81 MG ECTAB PO SCH (08:45)
[2023-07-03] MEDS: POTASSIUM CHLORIDE CRTAB 20 MEQ TABCR PO SCH ×2 (08:45→20:05)
[2023-07-03] MEDS: buPROPion XL 150 MG TABCR PO SCH (08:45)
[2023-07-03] MEDS: carvediloL 6.25 MG TAB PO SCH ×2 (08:45→20:03)
[2023-07-03] MEDS: PANTOprazole 40 MG TAB PO SCH (08:45)
--- NOTE | 2023-07-03 12:42 | Nephrology Progress Note ---
Date of Service July 03, 2023 Assessment & Plan (1) CKD (chronic kidney disease): (2) Lower extremity edema: (3) Acute kidney injury superimposed on chronic kidney disease: (4) Anemia: (5) Metabolic alkalosis: (6) Morbid obesity: Plan 53 year old male with CKD stage G3b/A3, b/l Cr 2.4 mg/dl, eEGFR 30 cc/min with congenitally absent L kidney, solitary R kidney and underlying DKD, obesity, GULSHAN, HTN, and multiple prior episodes of ZAIRE. Has h/o LE venous stasis ulcers and edema, has been on Torsemide 100 mg and Metolazone 5 mg po BID and occasional IV Furosemide in the office. His last OV was 12/01. Mr. Dutta endorses a 13 lb weight gain over the last 4 weeks. This has been accompanied by tense LE swelling and erythema. He presented to the ER with worsening LE edema and need for IV diuretic on 06/30/23. His diuretics dose was increased to Lasix 100 twice a day and metolazone 5 mg twice a day. Renal function staying relatively stable over last 3 days, creatinine around 2.9-3.0, has expected metabolic alkalosis. Has been feeling well this morning. Intake and output unmeasured but his weight seems to be down. Blood pressure well-controlled, respiratory status acceptable. --Continue on Lasix 100 IV twice daily and metolazone 5 mg twice daily, accurate intake and output in chart. Aim for net negative > 1.5 to 1 L, if even or net positive, will increase Lasix dose. -- High risk for worsening renal function and multiple electrolyte abnormality considering need for high-dose of diuretics chronically in addition to multiple other significant comorbidities. -- Iron study with a.m. lab Admission and Anticipated Discharge Date Admission Date: June 30, 2023 Mio Rangel was seen and evaluated this morning. Overall he feels well, denies any specific symptoms, no shortness of breath or chest pain. Intake and output is not measured and he does not notice any significant difference when he takes the diuretics. Weight is down. Slight improvement in creatinine, electrolyte acceptable. Blood pressure well-controlled. Review of Systems Review of Systems: Detailed review of system was done and pertinent positives and negatives are mentioned above. Physical Exam Constitutional: WD/WN, vitals as above + ill appearing and + morbidly obese; no acute distress Neck: normal visual inspection Respiratory: Auscultation: lungs clear to auscultation bilaterally Cardiovascular: Rate/Rhythm: regular rate and regular rhythm Extremities: + edema (Trace bilateral lower extremity edema) Skin: no rashes, warm and dry Neurologic: no focal motor deficits Psychiatric: Orientation: alert and oriented x 3 Results & Data Vital Signs (Past 12 Hours) Vital Signs Temp Pulse Pulse Resp BP BP Pulse Ox 07/03/23 11:35 36.6 C 83 16 131/78 93 07/03/23 08:00 91 07/03/23 07:53 36.7 C 86 17 169/81 H 88 L 07/03/23 07:21 95 H 07/03/23 06:49 85 07/03/23 04:29 87 L 07/03/23 04:06 36.7 C 93 H 18 143/70 H 87 L O2 Del Method O2 Flow Rate FiO2 07/03/23 11:35 Room Air 07/03/23 08:00 Room Air 07/03/23 07:53 Room Air 07/03/23 07:21 07/03/23 06:49 07/03/23 04:29 Nasal Cannula 0 21 07/03/23 04:06 Room Air PG Care Time/CCT Total # of Minutes Spent Total Time Spent with Patient: Total time spent is greater than 50% in coordination of care (as documented) at patient's floor/unit and/or counseling patient: Coding Level of Care Code 38955 SUB INP/OBS CARE 2/35MIN Diagnoses CKD (chronic kidney disease) N18.9 Lower extremity edema R60.0 Acute kidney injury superimposed on chronic kidney disease N17.9; N18.9 Anemia D64.9 Metabolic alkalosis E87.3 Morbid obesity E66.01
[2023-07-03] MEDS: ATORVASTATIN 40 MG TAB PO SCH (20:04)
[2023-07-03] MEDS: cefTRIAXone SODIUM 2,000 MG in DEXTROSE 5 % MINI-B 50 ML IV SCH (20:07)
[2023-07-04] MEDS: HEPARIN SOD 5,000 UNIT/0.5 ML VIAL SQ SCH ×3 (05:03→21:58)
[2023-07-04] MEDS: POTASSIUM CHLORIDE CRTAB 20 MEQ TABCR PO SCH ×2 (07:57→20:12)
[2023-07-04] MEDS: carvediloL 6.25 MG TAB PO SCH ×2 (07:57→20:14)
[2023-07-04] MEDS: MAGNESIUM OXIDE 400 MG TAB PO SCH ×2 (07:58→20:13)
[2023-07-04] MEDS: ASPIRIN 81 MG ECTAB PO SCH (07:58)
[2023-07-04] MEDS: buPROPion XL 150 MG TABCR PO SCH (07:58)
[2023-07-04] MEDS: SPIRONOLACTONE 25 MG TAB PO SCH (07:58)
[2023-07-04] MEDS: metOLazone 5 MG TABLET PO SCH ×2 (07:58→20:12)
[2023-07-04] MEDS: PANTOprazole 40 MG TAB PO SCH (07:58)
[2023-07-04] MEDS: INSULIN ASPART PER UNIT CHARGE SC SCH ×4 (08:38→21:59)
[2023-07-04] MEDS: LANTUS PER UNIT CHARGE SQ SCH ×2 (08:38→21:59)
[2023-07-04] MEDS: FUROSEMIDE 40 MG/4 ML VIAL IV SCH ×2 (08:39→17:09)
[2023-07-04 08:49] LABS: Hematocrit (blood only) 35.1 % (42.0-52.0); Hemoglobin 10.9 g/dl (14.0-18.0); Mean Corpuscular Hemoglobin 27.7 pg (25.0-34.0); Mean Corpuscular Hgb Conc 31.1 g/dL (32.0-36.0); Mean Corpuscular Volume 89.1 fL (80.0-100.0); Platelet Count 306 K/uL (130-400); RDW Coefficient of Variation 14.6 % (11.5-14.5); RDW Standard Deviation 46.9 fL (36.4-46.3); Red Blood Count 3.94 M/uL (4.70-6.10); White Blood Count 10.09 K/ul (4.8-10.8)
[2023-07-04 08:54] LABS: BUN Creatinine Ratio 30.9 (10-20); C Reactive Protein 1.75 mg/dl (0-0.5); Calcium 9.4 mg/dl (8.6-10.3); Creatinine Clr Calc Pharmacy 47.7 ml/min; Est GFR (African American) 29.2 ml/min; Est GFR (Non-African American) 25.2 ml/min; Phosphorus 2.7 mg/dl (2.5-4.9); Potassium 4.3 mmol/L (3.5-5.1)
[2023-07-04 09:14] LABS: Ferritin 207.8 ng/ml (8-388)
--- NOTE | 2023-07-04 11:46 | Nephrology Progress Note ---
Date of Service July 04, 2023 Assessment & Plan (1) CKD (chronic kidney disease): (2) Lower extremity edema: (3) Acute kidney injury superimposed on chronic kidney disease: (4) Anemia: (5) Metabolic alkalosis: (6) Morbid obesity: Plan 53 year old male with CKD stage G3b/A3, b/l Cr 2.4 mg/dl, eEGFR 30 cc/min with congenitally absent L kidney, solitary R kidney and underlying DKD, obesity, GULSHAN, HTN, and multiple prior episodes of ZAIRE. Has h/o LE venous stasis ulcers and edema, has been on Torsemide 100 mg and Metolazone 5 mg po BID and occasional IV Furosemide in the office. His last OV was 12/01. Mr. Dutta endorses a 13 lb weight gain over the last 4 weeks. This has been accompanied by tense LE swelling and erythema. He presented to the ER with worsening LE edema and need for IV diuretic on 06/30/23. His diuretics dose was increased to Lasix 100 twice a day and metolazone 5 mg twice a day. Renal function staying relatively stable over last 3 days, creatinine around 2.9-3.0, has expected metabolic alkalosis. Has been feeling well this morning. Responding well to current dose of diuretics. Blood pressure well-controlled, respiratory status acceptable. Hemoglobin stable, adequate iron store. --Continue on Lasix 100 IV twice daily and metolazone 5 mg twice daily, accurate intake and output in chart. Aim for net negative > 1.5 to 1 L. -- High risk for worsening renal function and multiple electrolyte abnormality considering need for high-dose of diuretics chronically in addition to multiple other significant comorbidities. --Since clinically otherwise doing well, weight improved significantly, okay to be discharged with close outpatient lab monitoring. If plan for discharge recommend increasing Lasix to 120 mg orally twice daily and metolazone. Lab in 2 days and follow-up with Dr. Dodge. Admission and Anticipated Discharge Date Admission Date: June 30, 2023 Mio Rangel was seen and evaluated this morning. Overall he feels well, denies any specific symptoms, no shortness of breath or chest pain. Responding very well to diuretics, net -1.8 L overnight. Renal function slightly improved, crea tinine down to 2.8. Hemoglobin 10.9 with decent iron store. Overall feeling well, significant improvement in volume status. Blood pressure well-controlled. Review of Systems Review of Systems: Detailed review of system was done and pertinent positives and negatives are mentioned above. Physical Exam Constitutional: WD/WN, vitals as above + morbidly obese; no acute distress Neck: normal visual inspection Respiratory: Auscultation: lungs clear to auscultation bilaterally Cardiovascular: Rate/Rhythm: regular rate and regular rhythm Extremities: + edema (Trace bilateral lower extremity edema) Skin: no rashes, warm and dry Neurologic: no focal motor deficits Psychiatric: Orientation: alert and oriented x 3 Results & Data Vital Signs (Past 12 Hours) Vital Signs Temp Pulse Pulse Resp BP BP Pulse Ox 07/04/23 11:31 36.7 C 82 17 144/83 H 94 07/04/23 07:44 36.8 C 82 16 139/81 94 07/04/23 06:07 81 07/04/23 04:01 37.0 C 89 18 125/71 89 L O2 Del Method 07/04/23 11:31 Room Air 07/04/23 07:44 Room Air 07/04/23 06:07 07/04/23 04:01 Room Air PG Care Time/CCT Total # of Minutes Spent Total Time Spent with Patient: Total time spent is greater than 50% in coordination of care (as documented) at patient's floor/unit and/or counseling patient: Coding Level of Care Code 97107 SUB INP/OBS CARE 2/35MIN Diagnoses CKD (chronic kidney disease) N18.9 Lower extremity edema R60.0 Acute kidney injury superimposed on chronic kidney disease N17.9; N18.9 Anemia D64.9 Metabolic alkalosis E87.3 Morbid obesity E66.01
--- NOTE | 2023-07-04 18:55 | Hospitalist Progress Note ---
Date of Service July 04, 2023 Assessment & Plan (1) CHF (congestive heart failure): Plan: Patient converted from p.o. to IV diuretics during this inpatient stay Patient has had 11.2 kg weight loss with diuretics this admission Strict ins and outs as well as daily weight requested Continue to monitor patient's cumulative fluid loss as well as his weight. Patient should follow-up with outpatient CHF clinic on discharge (2) CKD (chronic kidney disease): Plan: Nephrology consulted. Appreciate their input Continue with IV diuretics with furosemide 100 mg IV twice daily in conjunction with metolazone 5 mg. Target -1 to 1.5 L daily. Close monitoring due to high risk for worsening renal function Continue on medical telemetry due to risk of electrolyte shift (3) Lower extremity edema: Plan: Continue with IV diuretics as listed above Patient appears to have good vascular flow at this time with bilateral pedal pulses intact Patient encouraged to ambulate as tolerated and pump legs while sitting in bed (4) Venous stasis ulcers of both lower extremities: Plan: Secondary to poorly controlled diabetes mellitus Hemoglobin A1c was 11.3% Continue Lantus 30 units twice daily while inpatient with NovoLog sliding scale insulin (5) Cardiomyopathy: Plan: Most recent echocardiogram with left ventricular ejection fraction of 50 to 55% Continue with diuresis Continue carvedilol (6) Diabetic ulcer of right heel: Plan: Secondary to poorly controlled diabetes as listed above Care consulted and images and computer Continue wound management per wound care Continue with ceftriaxone 2 g IV every 24 hours Afebrile (7) Diabetes type 2, uncontrolled: Plan: Continue with Lantus 30 units twice daily and sliding scale insulin with NovoLog Pharmacy consulted for glycemic management. Appreciate their input Most recent hemoglobin A1c is 11.3% (8) Nocturnal hypoxemia: Plan: Supplemental oxygen as needed to maintain SpO2 greater than 90% (9) CAD (coronary artery disease): Plan: Continue carvedilol and aspirin Continue atorvastatin Monitor on telemetry (10) HTN (hypertension): Plan: Blood pressure is slightly elevated with a systolic pressure of 150 Continue on home medications including carvedilol. If blood pressure remains elevated with systolic pressure we will adjust home medications (11) GERD (gastroesophageal reflux disease): Plan: Continue pantoprazole Plan Patient still requiring inpatient treatment for IV diuretics as well as IV antibiotics Continue with daily weights and target negative fluid balance of 1 to 1.5 L Anticipate discharge home when medically stable Admission and Anticipated Discharge Date Admission Date: June 30, 2023 Subjective Attending: Dr. Escobar Overall, patient is doing very well. He diuresed 2200 cc per nursing report in the last 24 hours. Patient is currently with a cumulative net balance of 2.5 L. Weight on admission was 179.2 kg. Standing scale weight today is 168 kg. Patient denies shortness of breath, wheezes, chest pain, tightness. Continues with lower extremity edema. Starting to increase activity with walking in the room with walker No other acute complaints Review of Systems 2 Review of Systems: A total of 10 systems was reviewed and is negative other than as listed in the HPI Physical Exam Physical Exam: GENERAL : No acute distress. Pleasant. Talkative. Sitting at edge of bed EYES: No icterus, gaze conjugate NOSE: No evidence of epistaxis MOUTH: No lesions or candidiasis NECK: Supple LUNGS: CTA B/L, no wheezes, rales or rhonchi HEART: Regular, rate controlled ABDOMEN: Soft, NT, ND, BS Present EXTREMITIES: Bilateral LE edema. Both lower extremities are wrapped NEURO: A&OX3 Results & Data Results & Data Vital Signs (Past 12 Hours) Vital Signs Temp Pulse Pulse Resp BP BP Pulse Ox 07/04/23 15:24 36.6 C 86 17 153/92 H 94 07/04/23 14:00 85 07/04/23 11:31 36.7 C 82 17 144/83 H 94 07/04/23 07:44 36.8 C 82 16 139/81 94 O2 Del Method 07/04/23 15:24 Room Air 07/04/23 14:00 07/04/23 11:31 Room Air 07/04/23 07:44 Room Air Selected Entries 06/30/23 21:00 07/04/23 11:00 Weight 179.2 kg 168 kg PG Care Time/CCT Total # of Minutes Spent Total Time Spent with Patient: Total time spent is greater than 50% in coordination of care (as documented) at patient's floor/unit and/or counseling patient: 30 minutes Coding Level of Care Code 08533 SUB INP/OBS CARE 1/25MIN Diagnoses CHF (congestive heart failure) I50.9 Heart failure chronicity: unspecified Heart failure type: unspecified CKD (chronic kidney disease) N18.9 Lower extremity edema R60.0 Venous stasis ulcers of both lower extremities I83.019; I83.029; L97.919; L97.929 Cardiomyopathy I42.9 Cardiomyopathy type: unspecified Diabetic ulcer of right heel E11.621; L97.419 Diabetes type 2, uncontrolled E11.65 Glycemic state: with hyperglycemia Nocturnal hypoxemia G47.34 Coronary artery disease involving [place] coronary artery of [place] heart without angina pectoris I25.10 Coronary Disease-Associated Artery/Lesion type: [place] artery [place] vs. transplanted heart: [place] heart Associated angina: without angina Essential hypertension I10 Hypertension type: essential hypertension Gastroesophageal reflux disease, unspecified whether esophagitis present K21.9 Esophagitis presence: esophagitis presence not specified Time Spent (min) 30 (1) CHF (congestive heart failure) Heart failure chronicity: unspecified Heart failure type: unspecified Qualified Code(s): I50.9 - Heart failure, unspecified (5) Cardiomyopathy Cardiomyopathy type: unspecified Qualified Code(s): I42.9 - Cardiomyopathy, unspecified (7) Diabetes type 2, uncontrolled Glycemic state: with hyperglycemia Qualified Code(s): E11.65 - Type 2 diabetes mellitus with hyperglycemia (9) CAD (coronary artery disease) Coronary Disease-Associated Artery/Lesion type: [place] artery [place] vs. transplanted heart: [place] heart Associated angina: without angina Qualified Code(s): I25.10 - Atherosclerotic heart disease of [place] coronary artery without angina pectoris (10) HTN (hypertension) Hypertension type: essential hypertension Qualified Code(s): I10 - Essential (primary) hypertension (11) GERD (gastroesophageal reflux disease) Esophagitis presence: esophagitis presence not specified Qualified Code(s): K21.9 - Gastro-esophageal reflux disease without esophagitis
[2023-07-04] MEDS: cefTRIAXone SODIUM 2,000 MG in DEXTROSE 5 % MINI-B 50 ML IV SCH (20:04)
[2023-07-04] MEDS: ATORVASTATIN 40 MG TAB PO SCH (20:14)
[2023-07-05] MEDS: HEPARIN SOD 5,000 UNIT/0.5 ML VIAL SQ SCH ×3 (05:56→22:32)
[2023-07-05 06:05] LABS: BUN Creatinine Ratio 23.4 (10-20); Calcium 9.5 mg/dl (8.6-10.3); Creatinine Clr Calc Pharmacy 36.9 ml/min; Est GFR (African American) 21.5 ml/min; Est GFR (Non-African American) 18.6 ml/min; Phosphorus 2.9 mg/dl (2.5-4.9); Potassium 4.2 mmol/L (3.5-5.1)
[2023-07-05] MEDS: carvediloL 6.25 MG TAB PO SCH ×2 (08:43→20:35)
[2023-07-05] MEDS: metOLazone 5 MG TABLET PO SCH (08:44)
[2023-07-05] MEDS: MAGNESIUM OXIDE 400 MG TAB PO SCH ×2 (08:44→20:34)
[2023-07-05] MEDS: POTASSIUM CHLORIDE CRTAB 20 MEQ TABCR PO SCH ×2 (08:44→20:35)
[2023-07-05] MEDS: buPROPion XL 150 MG TABCR PO SCH (08:45)
[2023-07-05] MEDS: PANTOprazole 40 MG TAB PO SCH (08:45)
[2023-07-05] MEDS: SPIRONOLACTONE 25 MG TAB PO SCH (08:45)
[2023-07-05] MEDS: ASPIRIN 81 MG ECTAB PO SCH (08:45)
[2023-07-05] MEDS: LANTUS PER UNIT CHARGE SQ SCH ×2 (08:57→20:34)
[2023-07-05] MEDS: INSULIN ASPART PER UNIT CHARGE SC SCH ×4 (08:58→20:33)
[2023-07-05] MEDS: FUROSEMIDE 40 MG/4 ML VIAL IV SCH (09:03)
--- NOTE | 2023-07-05 12:17 | Nephrology Progress Note ---
Date of Service July 05, 2023 Assessment & Plan (1) CKD (chronic kidney disease): (2) Lower extremity edema: (3) Acute kidney injury superimposed on chronic kidney disease: (4) Anemia: (5) Metabolic alkalosis: (6) Morbid obesity: Plan 53 year old male with CKD stage G3b/A3, b/l Cr 2.4 mg/dl, eEGFR 30 cc/min with congenitally absent L kidney, solitary R kidney and underlying DKD, obesity, GULSHAN, HTN, and multiple prior episodes of ZAIRE. Has h/o LE venous stasis ulcers and edema, has been on Torsemide 100 mg and Metolazone 5 mg po BID and occasional IV Furosemide in the office. His last OV was 12/01. Mr. Dutta endorses a 13 lb weight gain over the last 4 weeks. This has been accompanied by tense LE swelling and erythema. He presented to the ER with worsening LE edema and need for IV diuretic on 06/30/23. His diuretics dose was increased to Lasix 100 twice a day and metolazone 5 mg twice a day. Renal function staying relatively stable over last 3 days, creatinine around 2.9-3.0, has expected metabolic alkalosis. Has been feeling well this morning. Responding well to current dose of diuretics. Blood pressure well-controlled, respiratory status acceptable. Hemoglobin stable, adequate iron store. Worsening of renal function. --Change Lasix to 100 mg oral twice daily and metolazone 5 mg once daily, accurate intake and output in chart. Aim for net negative > 0.5 to 1 L. --High risk for worsening renal function and multiple electrolyte abnormality considering need for high-dose of diuretics chronically in addition to multiple other significant comorbidities. Admission and Anticipated Discharge Date Admission Date: June 30, 2023 Mio Rangel was seen and evaluated this morning. Overall he feels well, denies any specific symptoms, no shortness of breath or chest pain. Responding well to diuretics, net negative 1.6 L overnight. Creatinine increased to 3.5 Hemoglobin 10.9 with decent iron store. Overall feeling well, significant improvement in volume status. Blood pressure well-controlled. Review of Systems Review of Systems: Detailed review of system was done and pertinent positives and negatives are mentioned above. Physical Exam Constitutional: WD/WN, vitals as above + morbidly obese; no acute distress Neck: normal visual inspection Respiratory: Auscultation: lungs clear to auscultation bilaterally Cardiovascular: Rate/Rhythm: regular rate and regular rhythm Extremities: no edema Skin: no rashes, warm and dry Neurologic: no focal motor deficits Psychiatric: Orientation: alert and oriented x 3 Results & Data Vital Signs (Past 12 Hours) Vital Signs Temp Pulse Resp BP Pulse Ox O2 Del Method 07/05/23 12:07 36.6 C 82 16 137/74 93 Room Air 07/05/23 07:55 36.5 C 84 16 132/76 91 Room Air 07/05/23 04:53 36.6 C 83 20 136/78 94 Room Air 07/05/23 04:00 Room Air 07/05/23 00:56 36.8 C 87 20 120/74 94 Room Air PG Care Time/CCT Total # of Minutes Spent Total Time Spent with Patient: Total time spent is greater than 50% in coordination of care (as documented) at patient's floor/unit and/or counseling patient: Coding Level of Care Code 13241 SUB INP/OBS CARE 2/35MIN Diagnoses CKD (chronic kidney disease) N18.9 Lower extremity edema R60.0 Acute kidney injury superimposed on chronic kidney disease N17.9; N18.9 Anemia D64.9 Metabolic alkalosis E87.3 Morbid obesity E66.01
--- NOTE | 2023-07-05 14:37 | XRay Report ---
XR chest 1V portable CLINICAL HISTORY: Fluid overload. COMPARISON STUDY: Chest CT November 05, 2022. Chest radiograph June 30, 2023. FINDINGS: No pneumothorax or pleural effusion is present. Cardiomegaly is unchanged. Mediastinal cont ours are stable. No evidence for pulmonary edema. Linear right lower lung densities are unchanged and favor scarring or atelectasis. There is no consolidation to suggest pneumonia. IMPRESSION: 1. No acute cardiopulmonary findings. 2. Stable cardiomegaly. No evidence for pulmonary edema. 3. No change in linear right lower lung densities suggestive of scarring or atelectasis. ACT 112: Negative or not required by law. Electronically signed by: Beni Walker M.D. 07/05/2023 2:36 PM
--- NOTE | 2023-07-05 14:57 | Pharmacy Report ---
Pharmacy Glycemic Short Note 2 - Date of Service July 05, 2023 - Glycemic Short BSG Results (Last 24 hours): 07/04/23 07/04/23 07/05/23 17:03 20:25 04:21 Glucose 148 H POC Glucose 141 H 149 H 07/05/23 07/05/23 08:06 12:10 Glucose POC Glucose 174 H 221 H OUTPATIENT ANTIDIABETIC REGIMEN: * U-500 150 units SC TID * Trulicity 3 mg SC weekly * HbA1c = 11.3% (06/30/23) ASSESSMENT: 07/05: * Juan Carlos has been receiving approximately 150 units of insulin daily over the weekend: 90 units basal + 60 units basal. BSGs have ranged 112 - 233 mg/dL. * Fasting BSG showing minimal improvement on current basal dose. Will increase slightly today. No change to Novolog. * Continues on Ceftriaxone. Tolerating diet well. 07/01: * 53 y/o M admitted for ZAIRE/CKD, peripheral edema. Patient has history of Type 2 diabetes managed at home on U-500 insulin and Trulicity SQ. * On previous admissions, patient was managed on basal Lantus insulin. Will utilize Lantus BID again this admission. * BSGs last night was 310 mg/dl. This is slowly trending down to 210 mg/dl at pre-lunch BSG today. * Novolog parameters based on wt/stress between 2 and 3. Will continue this today and tighten further tomorrow if needed. PLAN FOR INPATIENT GLYCEMIC CONTROL: * Basal insulin * Lantus 50 units SC BID * Bolus insulin * NovoLog per scale ACHS or Q6hrs while NPO * Goal Range: Low 110 mg/dL - High 140 mg/dL * Correction Factor: 8 mg/dL/unit * Nutritional / Prandial insulin per carb ratio of 1 unit per 4 grams CHO consumed
--- NOTE | 2023-07-05 16:40 | Hospitalist Progress Note ---
Date of Service July 05, 2023 Assessment & Plan (1) CHF (congestive heart failure): Plan: Patient converted from p.o. torsemide to IV Lasix during this inpatient stay Patient has had 11.2 kg weight loss with diuretics this admission Strict ins and outs as well as daily weight requested Continue to monitor patient's cumulative fluid loss as well as his weight. Patient should follow-up with outpatient CHF clinic on discharge Due to bump in creatinine, will change furosemide to p.o. and reduce metolazone to 1 times daily Continue inpatient stay with daily labs Selected Entries 06/30/23 21:00 07/04/23 11:00 07/05/23 06:35 Weight 179.2 kg 168 kg 167.3 kg (2) CKD (chronic kidney disease): Plan: Nephrology consulted. Appreciate their input Changed to oral furosemide 100 mg twice daily and reduce metolazone to 5 mg p.o. daily starting this afternoon Target -1 to 1.5 L daily. Close monitoring due to high risk for worsening renal function Continue on medical telemetry due to risk of electrolyte shift Bump in creatinine to 3.54 today. Follow daily labs (3) Lower extremity edema: Plan: Continue with diuretics as listed above Patient appears to have good vascular flow at this time with bilateral pedal pulses intact Patient encouraged to ambulate as tolerated and pump legs while sitting in bed (4) Venous stasis ulcers of both lower extremities: Plan: Secondary to poorly controlled diabetes mellitus Hemoglobin A1c was 11.3% Random glucose today 148 mg/[facility] Continue Lantus per glycemic consult with NovoLog sliding scale insulin (5) Cardiomyopathy: Plan: Most recent echocardiogram with left ventricular ejection fraction of 50 to 55% Continue with diuresis Continue carvedilol (6) Diabetic ulcer of right heel: Plan: Secondary to poorly controlled diabetes as listed above Care consulted and images and computer Continue wound management per wound care Continue with ceftriaxone 2 g IV every 24 hours Afebrile (7) Diabetes type 2, uncontrolled: Plan: Continue with Lantus twice daily and sliding scale insulin with NovoLog Random glucose 148 mg/[facility] consulted for glycemic management. Appreciate their input Most recent hemoglobin A1c is 11.3% (8) Nocturnal hypoxemia: Plan: Supplemental oxygen as needed to maintain SpO2 greater than 90% (9) CAD (coronary artery disease): Plan: Continue carvedilol and aspirin Continue atorvastatin Monitor on telemetry (10) HTN (hypertension): Plan: Blood pressure is improved with diuresis. Currently 137/74 Continue on home medications including carvedilol. If blood pressure remains elevated with systolic pressure we will adjust home medications (11) GERD (gastroesophageal reflux disease): Plan: Continue pantoprazole Plan Patient still requiring inpatient treatment for diuretics as well as IV antibiotics Continue with daily weights and target negative fluid balance of 1 to 1.5 L Anticipate discharge home when medically stable Converted from IV furosemide to oral furosemide today check weights and labs in the morning Admission and Anticipated Discharge Date Admission Date: June 30, 2023 Supervising Physician Co-Signing Physician Notes The patient was not seen by me. The chart was reviewed. Case discussed with FIDENCIO Carlos. Agree with assessment and plan Subjective Attending: Dr. Felix Patient seen and examined at bedside today. Interim update: He continues to lose weight and diuresed well. Current standing weight is 167.3 kg. Patient is diuresed at home with torsemide 100 mg p.o. twice daily as well as metolazone 5 mg p.o. twice daily and spironolactone 50 mg p.o. daily. On admission, he was converted to furosemide (Lasix) 100 mg IV twice daily. Due to his continued diuresis but being aware of bump in creatinine to 3.54 today, will change furosemide to 100 mg p.o. twice daily and reduce metolazone to 5 mg p.o. daily per discussion with nephrology. Lengthy discussion with nephrology regarding patient and treatment plan. Patient states that he is feeling better. Continues to have edema of lower extremities. No lower extremity pain. No shortness of breath. No chest pain or tightness. Patient does feel that he is urinating well. Has not been ambulating in the halls but is increasing ambulation in his room. Discussed need for continuing fluid restriction of 1500 mL p.o. daily. Patient endorses understanding Review of Systems 2 Review of Systems: A total of 10 systems was reviewed and is negative other than as listed in the HPI Physical Exam 2 Physical Exam: GENERAL : No acute distress EYES: No icterus, gaze conjugate NOSE: No evidence of epistaxis MOUTH: No lesions or candidiasis NECK: Supple LUNGS: CTA B/L, no wheezes, rales or rhonchi. HEART: Regular, rate controlled ABDOMEN: Soft, NT, ND, BS Present EXTREMITIES: Bilateral LE edema, pedal pulses intact and equal bilaterally. Lower extremities are both wrapped. NEURO: A&OX3 Results & Data Results & Data Vital Signs (Past 12 Hours) Vital Signs Temp Pulse Pulse Resp BP Pulse Ox O2 Del Method 07/05/23 15:35 87 07/05/23 12:07 36.6 C 82 16 137/74 93 Room Air 07/05/23 08:00 Room Air 07/05/23 07:55 36.5 C 84 16 132/76 91 Room Air 07/05/23 04:53 36.6 C 83 20 136/78 94 Room Air Laboratory Results 07/04/23 08:09 07/05/23 04:21 PG Care Time/CCT Total # of Minutes Spent Total Time Spent with Patient: Total time spent is greater than 50% in coordination of care (as documented) at patient's floor/unit and/or counseling patient: 45 minutes Coding Level of Care Code 49980 SUB INP/OBS CARE 2/35MIN Diagnoses CHF (congestive heart failure) I50.9 Heart failure chronicity: unspecified Heart failure type: unspecified CKD (chronic kidney disease) N18.9 Lower extremity edema R60.0 Venous stasis ulcers of both lower extremities I83.019; I83.029; L97.919; L97.929 Cardiomyopathy I42.9 Cardiomyopathy type: unspecified Diabetic ulcer of right heel E11.621; L97.419 Diabetes type 2, uncontrolled E11.65 Glycemic state: with hyperglycemia Nocturnal hypoxemia G47.34 Coronary artery disease involving [place] coronary artery of [place] heart without angina pectoris I25.10 Associated angina: without angina Coronary Disease-Associated Artery/Lesion type: [place] artery [place] vs. transplanted heart: [place] heart Essential hypertension I10 Hypertension type: essential hypertension Gastroesophageal reflux disease, unspecified whether esophagitis present K21.9 Esophagitis presence: esophagitis presence not specified Time Spent (min) 45 (1) CHF (congestive heart failure) Heart failure chronicity: unspecified Heart failure type: unspecified Qualified Code(s): I50.9 - Heart failure, unspecified (5) Cardiomyopathy Cardiomyopathy type: unspecified Qualified Code(s): I42.9 - Cardiomyopathy, unspecified (7) Diabetes type 2, uncontrolled Glycemic state: with hyperglycemia Qualified Code(s): E11.65 - Type 2 diabetes mellitus with hyperglycemia (9) CAD (coronary artery disease) Associated angina: without angina Coronary Disease-Associated Artery/Lesion type: [place] artery [place] vs. transplanted heart: [place] heart Qualified Code(s): I25.10 - Atherosclerotic heart disease of [place] coronary artery without angina pectoris (10) HTN (hypertension) Hypertension type: essential hypertension Qualified Code(s): I10 - Essential (primary) hypertension (11) GERD (gastroesophageal reflux disease) Esophagitis presence: esophagitis presence not specified Qualified Code(s): K 21.9 - Gastro-esophageal reflux disease without esophagitis
[2023-07-05] MEDS: FUROSEMIDE 40 MG TAB PO SCH (17:42)
[2023-07-05] MEDS: ATORVASTATIN 40 MG TAB PO SCH (20:34)
[2023-07-05] MEDS: cefTRIAXone SODIUM 2,000 MG in DEXTROSE 5 % MINI-B 50 ML IV SCH (20:35)
[2023-07-06] MEDS: HEPARIN SOD 5,000 UNIT/0.5 ML VIAL SQ SCH ×3 (05:25→21:45)
[2023-07-06 06:27] LABS: Basophils # (auto) 0.06 K/uL (0.00-0.20); Basophils % (auto) 0.5 %; Eosinophils # (auto) 0.54 K/uL (0.00-0.50); Eosinophils % (auto) 4.7 %; Hematocrit (blood only) 35.2 % (42.0-52.0); Hemoglobin 10.7 g/dl (14.0-18.0); Immature Granulocytes # (auto) 0.06 K/uL (0.01-0.20); Immature Granulocytes % (auto) 0.5 %; Lymphocytes # (auto) 1.44 K/uL (1.20-3.40); Lymphocytes % (auto) 12.6 %; Mean Corpuscular Hemoglobin 27.5 pg (25.0-34.0); Mean Corpuscular Hgb Conc 30.4 g/dL (32.0-36.0); Mean Corpuscular Volume 90.5 fL (80.0-100.0); Mean Platelet Volume 9.2 fL (9.4-12.4); Monocytes % (auto) 6.1 %; Neutrophils # (auto) 8.64 K/uL (1.40-6.50); Neutrophils % (auto) 75.6 %; Platelet Count 277 K/uL (130-400); RDW Standard Deviation 48.9 fL (36.4-46.3); Red Blood Count 3.89 M/uL (4.70-6.10); White Blood Count 11.44 K/ul (4.8-10.8)
[2023-07-06 06:51] LABS: BUN Creatinine Ratio 28.5 (10-20); Calcium 9.3 mg/dl (8.6-10.3); Creatinine Clr Calc Pharmacy 44.8 ml/min; Est GFR (African American) 27.3 ml/min; Est GFR (Non-African American) 23.5 ml/min; Potassium 4.5 mmol/L (3.5-5.1)
[2023-07-06] MEDS: FUROSEMIDE 40 MG TAB PO SCH ×2 (07:56→17:58)
[2023-07-06] MEDS: ASPIRIN 81 MG ECTAB PO SCH (07:57)
[2023-07-06] MEDS: metOLazone 5 MG TABLET PO SCH (07:57)
[2023-07-06] MEDS: carvediloL 6.25 MG TAB PO SCH ×2 (07:57→20:51)
[2023-07-06] MEDS: MAGNESIUM OXIDE 400 MG TAB PO SCH ×2 (07:57→20:51)
[2023-07-06] MEDS: PANTOprazole 40 MG TAB PO SCH (07:58)
[2023-07-06] MEDS: buPROPion XL 150 MG TABCR PO SCH (07:58)
[2023-07-06] MEDS: SPIRONOLACTONE 25 MG TAB PO SCH (07:58)
[2023-07-06] MEDS: POTASSIUM CHLORIDE CRTAB 20 MEQ TABCR PO SCH ×2 (08:00→20:55)
--- NOTE | 2023-07-06 08:27 | Hospitalist Progress Note ---
Date of Service July 06, 2023 Assessment & Plan (1) CHF (congestive heart failure): Plan: acute HFpEF, previously reduced now recovered, non ischemic cardiomyopahty CAD on Coreg and statin converted from p.o. torsemide to IV Lasix Pt with persistent O>I and weight loss in face of CKD4 Patient should follow-up with outpatient CHF clinic on discharge continues on carvediolol (2) CKD (chronic kidney disease): Plan: Nephrology consulted. Appreciate their input Changed to oral furosemide 100 mg twice daily and reduce metolazone to 5 mg p.o. daily Target -1 to 1.5 L daily. Close monitoring due to high risk for worsening renal function (3) Lower extremity edema: Plan: Severe LE edema 3+ resultant venous stasis dermatitis and ulcers Patient appears to have good vascular flow at this time with bilateral pedal pulses intact Patient encouraged to ambulate as tolerated and pump legs while sitting in bed (4) Diabetes type 2, uncontrolled: Plan: Continue with Lantus twice daily and sliding scale insulin with NovoLog Random glucose 148 mg/[facility] consulted for glycemic management. Appreciate their input Most recent hemoglobin A1c is 11.3% (5) Diabetic ulcer of right heel: Plan: Secondary to poorly controlled diabetes , Continue wound management per wound care Continue with ceftriaxone 2 g IV every 24 hours Afebrile (6) Nocturnal hypoxemia: Plan: Supplemental oxygen as needed to maintain SpO2 greater than 90% (7) GERD (gastroesophageal reflux disease): Plan: Continue pantoprazole Plan Patient still requiring inpatient treatment for diuretics as well as IV antibiotics Continue with daily weights and target negative fluid balance of 1 to 1.5 L Admission and Anticipated Discharge Date Admission Date: June 30, 2023 Subjective No significant distress. Patient is doing well. The patient is over 20 pound weight loss. Renal function has been stable. Diuresis continues. Oversight by nephrology is appreciated Physical Exam Physical Exam: lungs are clear cardiac exam is regular legs are with 2+ edema and elactic bandage wraps in place, no soaked or soiled Results & Data Results & Data Vital Signs (Past 12 Hours) Vital Signs Temp Pulse Pulse Resp BP Pulse Ox O2 Del Method 07/06/23 07:38 97.9 F 81 20 149/81 H 92 Room Air 07/06/23 05:04 98.1 F 87 20 149/77 H 96 Room Air 07/05/23 23:42 98.4 F 86 20 99/51 L 97 Room Air 07/05/23 22:03 83 07/05/23 21:00 Room Air 07/05/23 20:30 Room Air Laboratory Results reviewed CBC reviewed iewed chemistry PG Care Time/CCT Total # of Minutes Spent Total Time Spent with Patient: Total time spent is greater than 50% in coordination of care (as documented) at patient's floor/unit and/or counseling patient: Coding Level of Care Code 53673 SUB INP/OBS CARE 2/35MIN Diagnoses CHF (congestive heart failure) I50.9 Heart failure chronicity: unspecified Heart failure type: unspecified CKD (chronic kidney disease) N18.9 Lower extremity edema R60.0 Diabetes type 2, uncontrolled E11.65 Glycemic state: with hyperglycemia Diabetic ulcer of right heel E11.621; L97.419 Nocturnal hypoxemia G47.34 Gastroesophageal reflux disease, unspecified whether esophagitis present K21.9 Esophagitis presence: esophagitis presence not specified (1) CHF (congestive heart failure) Heart failure chronicity: unspecified Heart failure type: unspecified Qualified Code(s): I50.9 - Heart failure, unspecified (4) Diabetes type 2, uncontrolled Glycemic state: with hyperglycemia Qualified Code(s): E11.65 - Type 2 diabetes mellitus with hyperglycemia (7) GERD (gastroesophageal reflux disease) Esophagitis presence: esophagitis presence not specified Qualified Code(s): K21.9 - Gastro-esophageal reflux disease without esophagitis
[2023-07-06] MEDS ORDERED: FUROSEMIDE 20 MG TAB PO ONE (08:30)
[2023-07-06] MEDS: INSULIN ASPART PER UNIT CHARGE SC SCH ×4 (09:28→20:50)
[2023-07-06] MEDS: LANTUS PER UNIT CHARGE SQ SCH ×2 (09:29→20:50)
--- NOTE | 2023-07-06 12:40 | Nephrology Progress Note ---
Date of Service July 06, 2023 Assessment & Plan (1) CKD (chronic kidney disease): (2) Lower extremity edema: (3) Acute kidney injury superimposed on chronic kidney disease: (4) Anemia: (5) Metabolic alkalosis: (6) Morbid obesity: Plan 53 year old male with CKD stage G3b/A3, b/l Cr 2.4 mg/dl, eEGFR 30 cc/min with congenitally absent L kidney, solitary R kidney and underlying DKD, obesity, GULSHAN, HTN, and multiple prior episodes of ZAIRE. Has h/o LE venous stasis ulcers and edema, has been on Torsemide 100 mg and Metolazone 5 mg po BID and occasional IV Furosemide in the office. His last OV was 12/01. Mr. Dutta endorses a 13 lb weight gain over the last 4 weeks. This has been accompanied by tense LE swelling and erythema. He presented to the ER with worsening LE edema and need for IV diuretic on 06/30/23. His diuretics dose was increased to Lasix 100 twice a day and metolazone 5 mg twice a day. Renal function staying relatively stable over last 3 days, creatinine around 2.9-3.0, has expected metabolic alkalosis. Has been feeling well this morning. Responding well to oral diuretics. Blood pressure well-controlled, respiratory status acceptable. Hemoglobin stable, adequate iron store. Worsening of renal function. --Continue Lasix 120 mg oral twice daily and metolazone 5 mg once daily, accurate intake and output in chart. Aim for net negative > 0.5 to 1 L. --High risk for worsening renal function and multiple electrolyte abnormality considering need for high-dose of diuretics chronically in addition to multiple other significant comorbidities. --OK to be discharged with close outpt monitoring. Admission and Anticipated Discharge Date Admission Date: June 30, 2023 Mio Rangel was seen and evaluated this morning. Overall he feels well, denies any specific symptoms, no shortness of breath or chest pain. Responding well to diuretics, net negative on oral diuretics since yesterday. Creatinine back to 2.8 Hemoglobin 10.9 with decent iron store. Overall feeling well, significant improvement in volume status. Blood pressure well-controlled. Review of Systems Review of Systems: Detailed review of system was done and pertinent positives and negatives are mentioned above. Physical Exam Constitutional: WD/WN, vitals as above + morbidly obese; no acute distress Neck: normal visual inspection Respiratory: Auscultation: lungs clear to auscultation bilaterally Cardiovascular: Rate/Rhythm: regular rate and regular rhythm Extremities: no edema Skin: no rashes, warm and dry Neurologic: no focal motor deficits Psychiatric: Orientation: alert and oriented x 3 Results & Data Vital Signs (Past 12 Hours) Vital Signs Temp Pulse Resp BP Pulse Ox O2 Del Method 07/06/23 11:30 36.5 C 83 20 150/80 H 93 Room Air 07/06/23 07:38 36.6 C 81 20 149/81 H 92 Room Air 07/06/23 05:04 36.7 C 87 20 149/77 H 96 Room Air PG Care Time/CCT Total # of Minutes Spent Total Time Spent with Patient: Total time spent is greater than 50% in coordination of care (as documented) at patient's floor/unit and/or counseling patient: Coding Level of Care Code 92459 SUB INP/OBS CARE 2/35MIN Diagnoses CKD (chronic kidney disease) N18.9 Lower extremity edema R60.0 Acute kidney injury superimposed on chronic kidney disease N17.9; N18.9 Anemia D64.9 Metabolic alkalosis E87.3 Morbid obesity E66.01
[2023-07-06] MEDS: cefTRIAXone SODIUM 2,000 MG in DEXTROSE 5 % MINI-B 50 ML IV SCH (20:49)
[2023-07-06] MEDS: ATORVASTATIN 40 MG TAB PO SCH (20:52)
[2023-07-07] MEDS: HEPARIN SOD 5,000 UNIT/0.5 ML VIAL SQ SCH (05:40)
[2023-07-07 06:55] LABS: BUN Creatinine Ratio 29.9 (10-20); Calcium 9.3 mg/dl (8.6-10.3); Creatinine Clr Calc Pharmacy 48.7 ml/min; Est GFR (African American) 30.1 ml/min; Potassium 4.2 mmol/L (3.5-5.1)
[2023-07-07] MEDS: INSULIN ASPART PER UNIT CHARGE SC SCH ×2 (08:36→13:09)
[2023-07-07] MEDS: MAGNESIUM OXIDE 400 MG TAB PO SCH (08:50)
[2023-07-07] MEDS: SPIRONOLACTONE 25 MG TAB PO SCH (08:50)
[2023-07-07] MEDS: FUROSEMIDE 40 MG TAB PO SCH (08:50)
[2023-07-07] MEDS: ASPIRIN 81 MG ECTAB PO SCH (08:50)
[2023-07-07] MEDS: carvediloL 6.25 MG TAB PO SCH (08:50)
[2023-07-07] MEDS: PANTOprazole 40 MG TAB PO SCH (08:50)
[2023-07-07] MEDS: metOLazone 5 MG TABLET PO SCH (08:50)
[2023-07-07] MEDS: buPROPion XL 150 MG TABCR PO SCH (08:50)
[2023-07-07] MEDS: POTASSIUM CHLORIDE CRTAB 20 MEQ TABCR PO SCH (08:54)
[2023-07-07] MEDS ORDERED: LANTUS PER UNIT CHARGE SQ SCH (09:00)
--- NOTE | 2023-07-07 10:44 | Nephrology Progress Note ---
Date of Service July 07, 2023 Assessment & Plan (1) CKD (chronic kidney disease): (2) Lower extremity edema: (3) Acute kidney injury superimposed on chronic kidney disease: (4) Anemia: (5) Metabolic alkalosis: (6) Morbid obesity: Plan 53 year old male with CKD stage G3b/A3, b/l Cr 2.4 mg/dl, eEGFR 30 cc/min with congenitally absent L kidney, solitary R kidney and underlying DKD, obesity, GULSHAN, HTN, and multiple prior episodes of ZAIRE. Has h/o LE venous stasis ulcers and edema, has been on Torsemide 100 mg and Metolazone 5 mg po BID and occasional IV Furosemide in the office. His last OV was 12/01. Mr. Dutta endorses a 13 lb weight gain over the last 4 weeks. This has been accompanied by tense LE swelling and erythema. He presented to the ER with worsening LE edema and need for IV diuretic on 06/30/23. His diuretics dose was increased to Lasix 100 twice a day and metolazone 5 mg twice a day. Renal function staying relatively stable over last 3 days, creatinine around 2.9-3.0, has expected metabolic alkalosis. Has been feeling well this morning. Responding well to oral diuretics. Blood pressure well-controlled, respiratory status acceptable. Hemoglobin stable, adequate iron store. Worsening of renal function. --Continue Lasix 120 mg oral twice daily and metolazone 5 mg once daily, accurate intake and output in chart. Aim for net negative > 0.5 to 1 L. --High risk for worsening renal function and multiple electrolyte abnormality considering need for high-dose of diuretics chronically in addition to multiple other significant comorbidities. --OK to be discharged with close outpt monitoring. --advised to resume Metolazone to bid at home if weight going up Admission and Anticipated Discharge Date Admission Date: June 30, 2023 Subjective Juan Carlos was seen and evaluated this morning. Doing well, denies any specific symptoms, no shortness of breath or chest pain. Responding well to diuretics, net negative about 600 ml on oral diuretics since yesterday. kidney function improved. Overall significant improvement in volume status. Blood pressure well-controlled. Review of Systems Review of Systems: Detailed review of system was done and pertinent positives and negatives are mentioned above. Physical Exam Constitutional: WD/WN, vitals as above + morbidly obese; no acute distress Neck: normal visual inspection Respiratory: Auscultation: lungs clear to auscultation bilaterally Cardiovascular: Rate/Rhythm: regular rate and regular rhythm Extremities: no edema Skin: no rashes, warm and dry Neurologic: no focal motor deficits Psychiatric: Orientation: alert and oriented x 3 Results & Data Vital Signs (Past 12 Hours) Vital Signs Temp Pulse Resp BP Pulse Ox O2 Del Method 07/07/23 07:53 36.5 C 80 18 133/74 96 Room Air 07/07/23 04:04 36.5 C 84 20 109/68 92 Room Air PG Care Time/CCT Total # of Minutes Spent Total Time Spent with Patient: Total time spent is greater than 50% in coordination of care (as documented) at patient's floor/unit and/or counseling patient: Coding Level of Care Code 24014 SUB INP/OBS CARE 2/35MIN Diagnoses CKD (chronic kidney disease) N18.9 Lower extremity edema R60.0 Acute kidney injury superimposed on chronic kidney disease N17.9; N18.9 Anemia D64.9 Metabolic alkalosis E87.3 Morbid obesity E66.01
--- NOTE | 2023-07-08 17:58 | Discharge Summary ---
Date of Service July 07, 2023 Admission HPI Per Admitting Provider Juan Carlos is a 53-year-old male with PMH of T2DM, dyslipidemia, CAD, HTN, GERD, CKD, PAD, and depression. He presented for worsening LE edema with weeping legs; sent in from Dr. Dodge's office with recommendation to obtain IV Lasix 80 mg IV BID. Patient endorses swelling/weeping/numbness in legs, but notes this is chronic due to his diabetic neuropathy. He reports that he did not take his morning medications today. He normally takes torsemide 100 mg twice daily, but did not take it today. He also has not taken his insulin today; normally takes Humulin 150u TID. He reports no recent changes in medications. No at home oxygen use. No CPAP. No sick contacts. He notes he has gained around 13 pounds since 06/02 (over the past month). He denies leg pain, and has no complaints at time of admission. Patient reports that he stopped going to wound care in September 2022; he reports that his mom last changed his dressing on 06/29. Patient is hypertensive at 155/83 at time of admission; vitals otherwise stable. ED course: Lasix 80 mg IV ROS: Patient endorses swelling/numbness in legs (chronic; neuropathy). Patient denies fever, chills, nightsweats, headache, dizziness, lightheadness, CP, pleuritic CP, SOB, cough, abdominal pain, N/V/D, urinary s/s, burning with urination, or pain in the legs. Principal Diagnosis acute HFpEF Discharge Data Allergies Allergy/AdvReac Type Severity Reaction Status Date / Time sulfamethoxazole AdvReac Severe kidney Verified 06/02/23 14:25 [From Bactrim] injury trimethoprim [From Bactrim] AdvReac Severe kidney Verified 06/02/23 14:25 injury Consultations 06/30/23 18:35 ED Decision to Admit Stat 06/30/23 21:19 Consult Nephrology Routine Hospital Course (1) CHF (congestive heart failure): acute HFpEF, previously reduced now recovered, non ischemic cardiomyopahty CAD on Coreg and statin d/c on po lasix and once a day mettolazone fCKD4 Patient should follow-up with outpatient CHF clinic on discharge continues on carvediolol (2) CKD (chronic kidney disease): Nephrology consulted. Appreciate their input CKD4 Changed to oral furosemide 120 mg twice daily and reduce metolazone to 5 mg p.o. daily Target -1 to 1.5 L daily. Close monitoring due to high risk for worsening renal function reinforced salt and fluid restriction (3) Lower extremity edema: Severe LE edema 3+ resultant venous stasis dermatitis and ulcers Patient appears to have good vascular flow at this time with bilateral pedal pulses intact Patient encouraged to ambulate as tolerated and pump legs while sitting in bed family is helping with LE skin care (4) Diabetes type 2, uncontrolled: Difficult much depends on diet and total calories in resumes home insulin will have to have endo eval and close follow up Most recent hemoglobin A1c is 11.3% (5) Diabetic ulcer of right heel: Secondary to poorly controlled diabetes , improved Continue wound management per wound care Continue with ceftriaxonecompelted a week Afebrile (6) Nocturnal hypoxemia: Supplemental oxygen as needed to maintain SpO2 greater than 90% (7) GERD (gastroesophageal reflux disease): Continue pantoprazole Total Time Total Time Spent Total Time Spent (In Minutes): It required greater than 30 minutes to prepare this patient for discharge. Discharge Plan Discharge Items Patient Disposition: Home - Self-Care Reason For Visit: LEG SWELLING Discharge Diagnosis: lower extremity swelling preserved ejection fraction heart failure Activity: Resume your previous activity Non-emergency contact: Primary Care Provider Call non-emergency contact if: your symptoms worsen Follow-up/Referrals: Griselda Aponte MD [Primary Care Provider] - Diet: Low Sodium (2gm) Addtl Attending Provider Instructions: Call 911 and go to the Emergency Room if: * You have tightness or pain in your chest that does not go away with rest or Nitroglycerin * You are very short of breath even with rest Call your doctor if any of the following symptoms or problems start or get worse: * Shortness of breath or difficulty breathing * Wake up at night short of breath * Chest pain * Cough * Swelling of your hands, fee, or legs * More fatigued or tired with your normal activity * Palpitations - sudden fast heart beats WEIGHT * Weigh yourself every morning after using the bathroom. * Use the same scale. * Wear the same amount of clothing. * Write your weight down on your chart. * Call your doctor if you gain more than 2-3 pounds in 1-2 days. MEDICATIONS * Use this discharge instruction sheet for instructions. * Take your medications at the time your doctor ordered. * Do not skip a dose of your medicines. * If you miss a dose of medicine, take as soon as possible, but DO NOT DOUBLE A DOSE. * Read your medicine information when you get home. * Know all of the side effects of your medicine. * Call your doctor's office if you have any side effects. * Be sure all of your doctors know what medicine and herbs you take (including cold, flu, and herbal medicine). * Pain Medicine: If you do not get relief from your pain, please call your doctor for help. Take the following with you to your follow-up doctor appointments: * Weight Chart * Medication List * List of questions Do not drink excessive alcohol, beer or wine. Pending Studies at Discharge: No Stand-Alone Forms: My [employer], Smoking Cessation Medications and DC Order Prescriptions: New furosemide 40 mg tablet 120 mg PO BID17 Qty: 180 3RF Continued (DME) OneTouch Verio test strips Strip See Rx Instructions .ROUTE .MEDSUPPLY Qty: 200 11RF Rx Instructions: Test 4 times daily and as needed potassium chloride 20 mEq tablet extended release 60 meq PO BID Qty: 540 3RF spironolactone 50 mg tablet 50 mg PO DAILY Qty: 90 3RF (DME) pen needle, diabetic 31 gauge x 3/16" needle See Rx Instructions .Route Qty: 300 5RF Rx Instructions: use to inject insulin - TID bupropion HCl 150 mg tablet extended release 24 hr 150 mg PO QAM Qty: 90 1RF carvedilol 6.25 mg tablet 6.25 mg PO BID Qty: 180 3RF magnesium oxide 400 mg magnesium tablet 400 mg PO BID Qty: 180 3RF pantoprazole 40 mg tablet,delayed release (DR/EC) 40 mg PO QAM Qty: 90 3RF atorvastatin [Lipitor] 80 mg tablet 80 mg PO QPM 90 Days Qty: 90 2RF cholecalciferol (vitamin D3) 125 mcg (5,000 unit) capsule 125 mcg PO DAILY Qty: 30 5RF tramadol 50 mg tablet 50 mg PO BID PRN (Reason: pain) Qty: 60 0RF ascorbate calcium (vitamin C) 500 mg tablet 500 mg PO QAM (DME) BD Insulin Syringe 1 mL 25 gauge x 5/8" syringe See Rx Instructions .Route Qty: 100 5RF Rx Instructions: INJECT INSULIN TWO TIMES DAILY; DX CODE- E11.65 Trulicity 3 mg/0.5 mL pen injector 3 mg subcut ONCE Qty: 2 6RF Rx Instructions: Inject 3.0 mg into the abdomen once weekly. Humulin R U-500 (Conc) Kwikpen 500 unit/mL (3 mL) insulin pen 150 unit subcut TID Qty: 84 3RF Rx Instructions: Inject 150 units three times daily into the abdomen with meals. (DME) FreeStyle Radha 3 Sensor Device See Rx Instructions .Route Qty: 2 11RF Rx Instructions: Change sensor every 14 days aspirin 81 mg Tablet,Delayed Release (Dr/Ec) 81 mg PO QAM Probiotic Blend 2 billion cell-50 mg Capsule 1 cap PO QAM Metamucil 3.4 gram/5.4 gram powder 1 tbsp PO QAM PRN (Reason: Constipation) Changed metolazone 5 mg tablet 5 mg PO DAILY Qty: 180 3RF Rx Instructions: 30 minutes prior to Bumex Discontinued losartan 25 mg tablet 25 mg PO DAILY Qty: 90 3RF torsemide 100 mg tablet 100 mg PO BID Qty: 60 2RF Shingrix (PF) 50 mcg/0.5 mL suspension for reconstitution 0.5 ml IM ONCE Qty: 1 1RF Rx Instructions: Please administer and repeat dose in 2-6 months Discharge Orders: Discharge Order (Routine); Ordered 07/07/23 Ordered By: Naeem Escobar Admission Data Admit Date/Time: 06/30/23 19:22 Attending Provider: Naeem Escobar Admit Provider: Misael Wilkinson Primary Care Provider: Griselda Aponte Other Providers: Misael Wilkinson; Yadiel Irby Other Interventions: Discharge Summary Assessment (RN) Last Done: 07/07/23 11:49 Coding Level of Care Code 93650 INP/OBS DISCH >30 MIN Diagnoses CHF (congestive heart failure) I50.9 Heart failure chronicity: unspecified Heart failure type: unspecified CKD (chronic kidney disease) N18.9 Lower extremity edema R60.0 Diabetes type 2, uncontrolled E11.65 Glycemic state: with hyperglycemia Diabetic ulcer of right heel E11.621; L97.419 Nocturnal hypoxemia G47.34 Gastroesophageal reflux disease, unspecified whether esophagitis present K21.9 Esophagitis presence: esophagitis presence not specified
--- NOTE | 2023-07-14 09:48 | Coding Query ---
CODING QUERY FOR UNCONTROLLED DIABETES To promote full compliance with coding requirements relating to patient care, provider participation is requested in all cases of dish person uncertainty. Please assist us with the question(s) below: Coding Question: The term uncontrolled Diabetes was used throughout the record. To be able to code this diagnosis properly, could you please clarify the diagnosis below: ( ) Uncontrolled Diabetes meaning hypoglycemia ( xx) Uncontrolled Diabetes meaning hyperglycemia ( ) Other (please specify) Principal Diagnosis: "that condition established after study, to be chiefly responsible for occasioning the admission of the patient to the hospital for care." Co-Existing Principal Diagnosis: "when two or more diagnoses equally meet the criteria for principal diagnosis as determined by the circumstances of admission, diagnostic work up, and/or therapy provided, and the Alphabetic Index, Tabular List, or another coding guideline does not provide sequencing direction, any one of the diagnoses may be sequenced first." "When the physician has documented what appears to be a current diagnosis in the body of the record, but has not included the diagnosis in the final diagnostic statement, the physician should be asked whether the diagnosis should be added." (Source Coding [facility] 2 QTR90. p3-4) ROSEANN
== END 2023-07-07 13:36 | disposition home or self-care (01) | DRG 291 ==
LOC: SUATTDRO → ED 15:02 → SUATTDRO 19:22 → 2W 19:22